=== PATIENT | female | born 1990 | race Caucasian/White ===

== ENCOUNTER 2019-07-23 20:20 | Emergency (ER) | payer OTHER, SELFPAY ==
[2019-07-23 20:24] VITALS: BP 137/89; PULSE 88; RESP 16; TEMP 36.7; O2SAT 99; BMI 44.9
[2019-07-23 20:40] VITALS: BP 135/86; PULSE 87; RESP 16; O2SAT 97
--- NOTE | 2019-07-23 21:24 | ED.RN ---
CALLED FELIPE TO ADVISE THE NEED FOR A DRUG TEST, SHE WILL BE IN
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
[2019-07-23 22:40] VITALS: BP 140/89; PULSE 86; RESP 17; O2SAT 96
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
[2019-07-24] VITALS: BP 138/80; PULSE 86; RESP 17; O2SAT 98
--- NOTE | 2019-07-24 00:11 | ED.DEP ---
ED Disposition - Plan for ED Patient: Instructions: LACERATION, Extrem (Suture, Staple or Tape), Chest Wall Contusion Prescriptions: Cephalexin [Keflex] 500 mg PO Q12 #14 capsule Hydrocodone Bitart/Apap 5-325 [[place] 5MG-325MG] 1 tablet PO Q6H PRN PRN 3 Days #10 tablet PRN Reason: Pain Referrals: Care Physician,No Primary [Primary Care Provider] - Teddy Feldman III, MD [STAFF PHYSICIAN] - [facility] [GROUP OF PHYSICIANS] -
[2019-07-24] MEDS: HYDROcodone Bitartrate/Apap 5/325 Tablet PO (00:14)
[2019-07-24] MEDS: Cephalexin 250 MG Capsule 500 MG PO (00:14)
[2019-07-24 00:45] VITALS: RESP 17
== END 2019-07-24 00:45 | disposition home or self-care (01) ==
PROVIDERS: Emergency Provider Emergency Medicine
DX: S81.011A Laceration without foreign body, right knee, initial encounter (principal); S20.211A Contusion of right front wall of thorax, initial encounter; V03.10XA Pedestrian on foot injured in collision with car, pick-up truck or van in traffic accident, initial encounter; Y93.01 Activity, walking, marching and hiking; Y92.410 Unspecified street and highway as the place of occurrence of the external cause
CPT/HCPCS: 12002; 71101; 73564; 99251; 99285; G0463

== ENCOUNTER → 2021-01-21 | Outpatient (CLI) | payer OTHER, SELFPAY ==
[2021-01-21 14:12] VITALS: BMI 44.9
[2021-01-26 20:24] LABS: HPV APTIMA, High Risk Negative (Negative)
== END | disposition home or self-care (01) ==
LOC: LABSPEC 16:40
PROVIDERS: PCP Physician Assistant; Referring Provider Nurse Practitioner Women's Health; Visit Provider Nurse Practitioner Women's Health
DX: Z12.4 Encounter for screening for malignant neoplasm of cervix (principal)
CPT/HCPCS: 87624; 88175; G0145

== ENCOUNTER → 2021-02-02 08:52 | Outpatient (CLI) | payer OTHER, SELFPAY ==
[2021-01-21 14:12] VITALS: BMI 44.9
[2021-02-02 09:55] LABS: Hemoglobin A1c 5.5 % (3.8-5.6)
[2021-02-02 11:58] LABS: Cholesterol 189 mg/dL (200); High Density Lipoprotein 42 mg/dL; Prolactin 11.7 ng/mL; Thyroid Stim Hormone (TSH) 3.32 uIU/mL (0.358-3.74); Triglycerides 65 mg/dL; Very Low Density Lipoprotein 13 mg/dL (5-40)
[2021-02-04 15:26] LABS: Testosterone Free 1.3 pg/mL (0.0-4.2)
== END ==
PROVIDERS: PCP Physician Assistant; Referring Provider Nurse Practitioner Women's Health; Visit Provider Nurse Practitioner Women's Health
DX: N97.0 Female infertility associated with anovulation (principal); N92.6 Irregular menstruation, unspecified; Z13.220 Encounter for screening for lipoid disorders; Z13.29 Encounter for screening for other suspected endocrine disorder
CPT/HCPCS: 36415; 80061; 82627; 83036; 84146; 84402; 84443; 82626

== ENCOUNTER 2021-11-02 15:09 | Outpatient (CLI) | payer BC, SELFPAY ==
[2021-11-03 10:08] LABS: Progesterone Level < 0.21 ng/mL (See Comment)
== END 2021-11-02 23:59 | disposition home or self-care (01) ==
PROVIDERS: PCP Physician Assistant; Referring Provider Obstetrics & Gynecology; Visit Provider Obstetrics & Gynecology
DX: N92.6 Irregular menstruation, unspecified (principal)
CPT/HCPCS: 36415; 84144

== ENCOUNTER → 2022-07-29 | Outpatient (CLI) | payer OTHER, SELFPAY ==
[2022-07-29 15:34] LABS: Progesterone Level 4.79 ng/mL (See Comment)
== END | disposition home or self-care (01) ==
LOC: LAB 14:27
PROVIDERS: PCP Physician Assistant; Visit Provider Nurse Practitioner Women's Health
DX: N97.0 Female infertility associated with anovulation (principal)
CPT/HCPCS: 36415; 84144

== ENCOUNTER → 2023-01-12 | Outpatient (CLI) | payer OTHER, SELFPAY ==
[2023-01-12 08:50] LABS: Glucose 75GTT - Fasting 114 mg/dL (70-99)
[2023-01-12 08:50] LABS: Glucose 75GTT - 30 minutes 198 mg/dL (100-160)
[2023-01-12 08:59] LABS: Insulin 75GTT - Fasting 26.6 mU/L (2.6-37.6)
[2023-01-12 08:59] LABS: Insulin 75GTT - 30 MIN 116.3 mU/L (Not Estab.)
[2023-01-12 09:08] LABS: T4 Free Direct 0.97 ng/dL (0.76-1.46); Thyroid Stim Hormone (TSH) 3.24 uIU/mL (0.358-3.74)
[2023-01-12 09:18] LABS: Glucose 75GTT - 60 minutes 150 mg/dL (100-160)
[2023-01-12 09:39] LABS: Insulin 75GTT - 60 min 156.7 mU/L (Not Estab)
[2023-01-12 10:40] LABS: Glucose 75GTT - 120 minutes 79 mg/dL (70-140)
[2023-01-12 10:48] LABS: Insulin 75GTT - 120 min 86.5 mU/L (Not Estab.)
== END | disposition home or self-care (01) ==
LOC: LAB 07:05
PROVIDERS: PCP Physician Assistant
DX: E03.9 Hypothyroidism, unspecified (principal)
CPT/HCPCS: 36415; 82951; 82952; 83525; 84439; 84443

== ENCOUNTER → 2023-08-15 | Outpatient (CLI) | payer OTHER, SELFPAY ==
[2023-08-15 17:05] LABS: Basophil# 0.07 X10^3/uL; Basophil% 0.7 % (0-1); Eosinophil# 0.42 X10^3/uL; Eosinophils% 4.2 % (0-5); Hematocrit 42.2 % (37-47); Hemoglobin 14.8 g/dL (12.0-15.0); Mean Corp Hgb Conc 35.1 g/dL (32-36); Mean Corpuscular Hgb 30.7 pg (27.0-32.0); Mean Corpuscular Volume 87.6 fL (81-99); Mean Platelet Vol. 10.8 fl (6.2-12.0); NRBC Flagged by Analyzer 0 % (0-5); Neutrophil # 5.97 X10^3/uL (2.7-7.7); Neutrophil % 59.7 % (47-70); Platelet Count 282 K/mm3 (150-450); RBC Distribution Width CV 12.6 % (11.6-14.6); RBC Distribution Width SD 40.5 fl (35.1-43.9); Red Blood Count 4.82 M/mm3 (4.2-5.4)
[2023-08-15 17:32] LABS: Hemoglobin A1c 5.3 % (3.8-5.6)
[2023-08-15 17:56] LABS: hCG Titer Quant., Serum 40000 mIU/mL (1-3)
[2023-08-15 18:06] LABS: HIV - WCH Non-Reactive (Nonreactive); Hepatitis B Surface Antigen Non-Reactive (Nonreactive); Hepatitis C Antibody Non-Reactive (Nonreactive); Rubella IgG Reactive (Nonreactive); Syphilis Antibodies Non-reactive
== END | disposition home or self-care (01) ==
LOC: LAB 16:41
PROVIDERS: PCP Physician Assistant; Referring Provider Advanced Practice Midwife; Visit Provider Advanced Practice Midwife
DX: Z34.90 Encounter for supervision of normal pregnancy, unspecified, unspecified trimester (principal)
CPT/HCPCS: 36415; 83036; 84702; 85025; 86703; 86762; 86780; 86803; 86850; 86900; 86901; 87340

== ENCOUNTER → 2023-08-24 | Outpatient (CLI) | payer OTHER, SELFPAY ==
[2023-08-29 21:06] LABS: Chlamydia By Nucleic Acid AMP Negative (Negative); Gonococcus By Nucleic Acid AMP Negative (Negative)
== END | disposition home or self-care (01) ==
LOC: LABSPEC 15:42
PROVIDERS: PCP Physician Assistant; Referring Provider Advanced Practice Midwife; Visit Provider Advanced Practice Midwife
DX: Z34.90 Encounter for supervision of normal pregnancy, unspecified, unspecified trimester (principal)
CPT/HCPCS: 87086; 87088; 87491; 87591

== ENCOUNTER → 2023-09-18 | Outpatient (CLI) | payer OTHER, SELFPAY ==
[2023-09-18 11:36] LABS: T4 Free Direct 0.91 ng/dL (0.76-1.46); Thyroid Stim Hormone (TSH) 1.52 uIU/mL (0.358-3.74)
[2023-09-18 11:47] LABS: NATERA MAILED SPECIMEN
== END | disposition home or self-care (01) ==
LOC: LAB 10:40
PROVIDERS: PCP Physician Assistant; Referring Provider Advanced Practice Midwife; Visit Provider Advanced Practice Midwife
DX: O20.9 Hemorrhage in early pregnancy, unspecified (principal); E03.9 Hypothyroidism, unspecified; O99.280 Endocrine, nutritional and metabolic diseases complicating pregnancy, unspecified trimester; Z3A.00 Weeks of gestation of pregnancy not specified
CPT/HCPCS: 36415; 84439; 84443

== ENCOUNTER → 2023-12-11 | Outpatient (CLI) | payer OTHER, SELFPAY ==
[2023-12-26 13:07] LABS: Anti-Cardiolipin Ab, IgG, Qn < 9 GPL U/mL (0-14); Anti-Cardiolipin Ab, IgM, Qn < 9 MPL U/mL (0-12); Antithrombin 3 Function 112 % (75-135); Beta-2-Glycoprotein I IgA <9 (0-25); Beta-2-Glycoprotein I IgG <9 (0-20); Beta-2-Glycoprotein I IgM <9 (0-32); Dilute Prothrombin Time (dPT) 23.5 sec (0.0-47.6); Dilute Russell Viper Venom 26.4 sec (0.0-47.0); Interpretation Comment: (.); PTT-LA 27.1 sec (0.0-43.5); Protein C Antigen 112 % (60-150); Protein C, Functional 143 % (73-180); Protein S, Free 56 % (61-136); Protein S, Funtional 34 % (63-140); Protein S, Total 49 % (60-150); Thrombin Time 15.4 sec (0.0-23.0); dPT Confirm Ratio 1.11 Ratio (0.00-1.34)
== END | disposition home or self-care (01) ==
PROVIDERS: PCP Physician Assistant; Referring Provider Obstetrics & Gynecology; Visit Provider Obstetrics & Gynecology
DX: Z36.9 Encounter for antenatal screening, unspecified (principal); N96 Recurrent pregnancy loss; Z86.718 Personal history of other venous thrombosis and embolism
CPT/HCPCS: 36415; 81241; 85300; 85302; 85303; 85305; 85306; 86146; 86147

== ENCOUNTER → 2024-01-12 | Outpatient (CLI) | payer OTHER, SELFPAY ==
[2024-01-12 08:25] LABS: Absolute Lymphocyte Count 0.76 X10^3/uL (0.83-4.51); Absolute Neutrophil Count 4.9 X10^3/uL (2.0-7.7); Basophil# 0.04 X10^3/uL; Basophil% 0.6 % (0-1); Eosinophils% 1.6 % (0-5); Hematocrit 36.6 % (37-47); Hemoglobin 12.3 g/dL (12.0-15.0); Lymphocyte # 0.76 X10^3/ul (0.83-4.51); Lymphocyte % 12.3 % (19-41); Mean Corp Hgb Conc 33.6 g/dL (32-36); Mean Corpuscular Hgb 29.6 pg (27.0-32.0); Mean Corpuscular Volume 88.2 fL (81-99); Mean Platelet Vol. 10.7 fl (6.2-12.0); Monocyte# 0.34 X10^3/uL; Monocyte% 5.5 % (0-10); NRBC Flagged by Analyzer 0 % (0-5); Neutrophil # 4.89 X10^3/uL (2.7-7.7); Neutrophil % 79.5 % (47-70); Platelet Count 170 K/mm3 (150-450); RBC Distribution Width CV 13.2 % (11.6-14.6); RBC Distribution Width SD 43.1 fl (35.1-43.9); Red Blood Count 4.15 M/mm3 (4.2-5.4); White Blood Count 6.2 K/mm3 (4.4-11.0)
[2024-01-12 09:05] LABS: Glucose Challenge Gest 1H 50g 130 mg/dL (70-140); Thyroid Stim Hormone (TSH) 1.37 uIU/mL (0.358-3.74)
[2024-01-12 09:24] LABS: HIV - WCH Non-Reactive (Nonreactive); Syphilis Antibodies Non-reactive
== END | disposition home or self-care (01) ==
LOC: LAB 07:37
PROVIDERS: PCP Physician Assistant; Referring Provider Obstetrics & Gynecology; Visit Provider Obstetrics & Gynecology
DX: O09.90 Supervision of high risk pregnancy, unspecified, unspecified trimester (principal); Z13.1 Encounter for screening for diabetes mellitus; E03.9 Hypothyroidism, unspecified; Z3A.00 Weeks of gestation of pregnancy not specified; O99.280 Endocrine, nutritional and metabolic diseases complicating pregnancy, unspecified trimester
CPT/HCPCS: 36415; 82950; 84443; 85025; 86703; 86780

== ENCOUNTER → 2024-03-06 | Outpatient (CLI) | payer OTHER, SELFPAY | END | disposition home or self-care (01) | LOC: LABSPEC 10:42 | PROVIDERS: PCP Physician Assistant; Referring Provider Advanced Practice Midwife; Visit Provider Advanced Practice Midwife | DX: O09.92 Supervision of high risk pregnancy, unspecified, second trimester (principal) | CPT/HCPCS: 87081 ==

== ENCOUNTER 2024-03-13 14:22 | Emergency (ER) | payer OTHER, SELFPAY ==
[2024-03-13 14:23] VITALS: BP 136/88; PULSE 85; RESP 18; TEMP 36.1; O2SAT 96; BMI 46.5
--- NOTE | 2024-03-13 16:48 | EDS_ITS ---
HPI History of Present Illness Chief Complaint: Headache Informant: patient and spouse/S.O. Onset/Context/Timing Onset: Days Context: Gradual Timing: Continuous Quality -Headache: Positive for Similar Prior Headaches and Tightness Current Severity: Moderate Maximum Severity: Moderate Associated Symptoms/Injury Associated Symptoms: Negative for Fever, Nausea, Vomiting, Sore Throat, Sinus Pressure, Numbness, Tingling, Preceding Aura, Visual Changes, Blurred Vision, Photophobia or Visual Loss Injury - LYON: Negative for Direct Trauma, Fall or Assault Narrative Narrative: 33-year-old female currently 30 weeks . With a history of migraine headaches. States that for the last 6 days she had gradual onset of a headache last Monday. Similar to her migraines. She is taken [id number] medication at home without relief. Went to an urgent care on Monday took a couple days off and still the headache has not improved. She denies any arm or leg weakness. She does have photophobia light. No fever. No neck pain. No falls or trauma. She is on no blood thinners. There is no family history of intracranial bleeds or aneurysms. She has had migraines for years. Prior similar symptoms: Yes Recent Illness/Hospitalization: No PFSH [facility] Medical History Cephalgia Bleeding in early Seasonal allergies History of DVT of lower extremity Anovulation HISTORY OF PLANTERS WART REMOVAL NECK AND BACK PAIN Difficulty balancing Depression with anxiety Knee pain Shoulder pain Shortness of breath Home Medications ?Medication ?Instructions ?Recorded ?Last Taken ?Type sertraline 100 mg tablet (Zoloft) 100 mg PO DAILY 02/14/22 Unknown History albuterol sulfate 90 mcg/actuation 2 puff inhalation Q6H PRN 08/15/23 Unknown History aerosol inhaler metformin 500 mg tablet 500 mg PO TID 08/15/23 Unknown History multivitamin no.47-iron fum 27 cap PO 08/15/23 Unknown History mg-folate no.1 1 mg-dha 300 mg capsule (PNV-DHA) ondansetron 4 mg disintegrating 4 mg PO Q6H #90 tabs 09/19/23 Unknown Rx tablet levothyroxine 50 mcg tablet 50 mcg PO DAILY #30 tabs 01/09/24 Unknown Rx (Synthroid) Allergy/AdvReac Type Severity Reaction Status Date / Time bacitracin (From Neosporin Allergy Intermediate Rash Verified 03/13/24 14:22 ([id number])) neomycin (From Neosporin Allergy Intermediate Rash Verified 03/13/24 14:22 ([id number])) polymyxin B (From Neosporin Allergy Intermediate Rash Verified 03/13/24 14:22 ([id number])) latex Allergy Rash Verified 03/13/24 14:22 banana AdvReac Nausea Verified 03/13/24 14:22 Family History Father Seizures Chiari malformation Lupus Sister PCOS (polycystic ovarian syndrome) Aunt PCOS (polycystic ovarian syndrome) Family history of recurrent miscarriage Mother Family history of recurrent miscarriage 2 miscarriges Surgical History History of tonsillectomy and adenoidectomy Social History adopted: No household members: spouse current occupational status: employed current occupation: [employer] pets and animals: Yes (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) pets and animals: cat(s) history of recent travel: Yes ([employer] at [place]) out of state: Yes out of country: No sexually active: Yes Smoking Status: Never smoker alcohol intake: current alcohol intake frequency: holidays/special occasions only details: not while substance use type: does not use diet: other well-balanced diet: daily or most days caffeine: Yes Type: coffee Number of servings: 1 eating out: 1-3 times/week during the past year weight has: decreased > 10 lbs what type of physical activity do you participate in: swimming frequency: 3-4 times per week song/latter-day: Yazidi seatbelt use: always do you feel safe at home: Yes additional social history: - [employer] ROS ROS ED ROS Narrative Headache. Review of Systems ROS Unobtainable: Denies due to encephalopathy Constitutional Constitutional ED: Denies chills or fever(s) Eyes Eyes: Denies blurry vision, change in vision or diplopia ENT ENT ED: Denies ear pain or rhinorrhea Cardiovascular Cardiovascular: Denies chest pain or palpitations Respiratory/Chest Respiratory/Chest: Denies cough or dyspnea Gastrointestinal Gastrointestinal: Denies abdominal pain, constipation or diarrhea Genitourinary Genitourinary ED: Denies dysuria or hematuria Musculoskeletal Musculoskeletal: Denies arthralgias or back pain Integumentary Denies abscess Neurologic Neurologic: Reports headache(s); Denies paresthesias or weakness Psychiatric Psychiatric: Denies anxiety or depression Endocrine Endocrinology: Denies polydipsia, polyphagia or polyuria Hematologic/Lymphatic Hematologic/Lymphatic: Denies easy bleeding, easy bruising or lymphadenopathy Allergic/Immunologic Allergic/Immunologic ED: Denies mouth swelling, tongue swelling or urticaria EXAM Physical Exam Narrative Exam Narrative: 33-year-old female sitting upright in a darkened room. Accompanied by her significant other. Vital signs are stable afebrile. Initial blood pressure 136/88. H EENT exam unremarkable. Pupils round reactive light. His motions are intact. No facial droop. No trauma. Neck nontender. No meningismus. Able to touch chin to chest. Lungs clear to auscultation. Heart regular rhythm rate about 85 no murmur. Abdomen soft nondistended. Gravid nontender uterus. No peritoneal signs. Moving all 4 extremities. 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 Dorsi plantarflexion intact. No edema. Neurologically she is awake and alert. NIH is 0. Fingertip to nose [id number] within normal limits. Bilateral equal symmetrical field pipelines supervisor strength in dorsi and plantarflexion. Normal speech. Const Vital Signs: 03/13/24 14:23 03/13/24 17:38 Temperature 96.9 F L Temperature Source Temporal Pulse Rate 85 87 Respiratory Rate 18 16 Blood Pressure 136/88 H 113/61 Blood Pressure Mean 104 78 Pulse Ox 96 98 Oxygen Delivery Method Room Air Room Air Positive well nourished and well developed; Negative for cachectic, contractures or unkempt General Appearance ED: well developed and NAD; Negative for unkempt, cachectic, contractures, cyanotic, diaphoretic or pallor Nutritional Appearance: Negative for cachectic HEENT Reports normocephalic and moist mucous membranes atraumatic; Negative for trauma, tenderness, temporal artery tenderness or vesicular rash Face and Sinus: Negative for sinus tenderness Eyes PERRL and EOMs intact bilaterally General Eye ED: Negative for pale conjunctiva or scleral icterus Neck no lymphadenopathy, supple, no meningeal signs and no JVD General: Negative for tenderness Resp normal respiratory effort and clear to auscultation bilaterally Effort and Inspection: Negative for retractions Auscultation: Negative for rales, rhonchi, wheezes or diminished lung sounds Cardio regular rate, regular rhythm, S1 normal heart sound, S2 normal heart sound and no murmurs Rate: Negative for bradycardia or tachycardic Rhythm: Negative for abnormal rhythm GI non-tender and non-distended Auscultation: normoactive bowel sounds Palpation: soft; Negative for firm or tender Back/Spine no CVA tenderness General Back: Negative for CVA tenderness or tenderness Cervical Spine: Negative for cervical spine tenderness Thoracic Spine / Upper Back: Negative for thoracic spinal tenderness Lumbar Spine / Lower Back: Negative for lumbar spinal tenderness Extremity normal to inspection, full ROM and normal capillary refill General Extremety ED: Negative for edema or tenderness General Extremity: Negative for edema Neuro oriented x3, CN's II-XII intact bilaterally and no sensory deficits noted Sensorium / Orientation: awake, alert, oriented to person, oriented to place and oriented to time; Negative for orientation impaired or lethargic Coordination / Balance: [id number] test normal and [id number] test normal Speech: speech normal Motor Exam: strength 5/5 throughout Psych mental status grossly normal Appearance: Negative for unkempt Attitude: No agitated Mood & Affect: Negative for depressed, anxious or tearful Skin General Skin Exam: elasticity normal and turgor normal; Negative for jaundice or pallor Rashes: no rashes MDM MDM MDM Narrative Medical decision making narrative: 38 weeks female with a history of migraines with what she believes is a migraine headache. For 6 days. She has a normal neurologic exam. She will be treated IV fluids, Compazine and Benadryl and Tylenol and reassess. I do not think she needs imaging at this time. Repeat exam patient is doing well at 7:52 PM. Headache resolved. Neurologic exam remains normal. Current blood pressure 113/61. She is comfortable being discharged home. Fluids and rest. Tylenol as needed. Follow-up with her OB as needed. History & Record Review Discussion w/independent historian: Patient and Family Additional record(s) reviewed:: Prior inpatient record, Prior outpatient record, Prior ED visit, Prior labs and No prior records Discharge Plan Triage Chief Complaint: Headache ED Provider: Rey Feng Dx/Rx/DC Orders Clinical Impression: Headache, History of migraine, 38 weeks gestation of Instructions: ED, Migraine (Classical) Prescriptions: No Action sertraline [Zoloft] 100 mg tablet 100 mg PO DAILY PNV-DHA 27 mg iron-1 mg -300 mg capsule PO metformin 500 mg tablet 500 mg PO TID albuterol sulfate 90 mcg/actuation HFA aerosol inhaler 2 puff inhalation Q6H PRN ondansetron 4 mg tablet,disintegrating 4 mg PO Q6H Qty: 90 3RF levothyroxine [Synthroid] 50 mcg tablet 50 mcg PO DAILY Qty: 30 0RF Primary Care Provider: Bushra Collins Referrals: Carey Marshall MD [Med Staff - Active Staff] - As Needed Bushra Collins PA [Primary Care Provider] - As Needed Activity Restrictions/Additional Instructions: Plenty of fluids and rest. Tylenol as needed. Follow-up with your OB. Return if worse. Print Language: Pakistani Disposition Disposition: Home, Self Care
[2024-03-13] MEDS: 0.9% Normal Saline (1000mL) 1,000 ML 999 ML IV (17:00)
[2024-03-13] MEDS: proCHLORPERazine 10 MG/2 ML Vial IV (17:01)
[2024-03-13] MEDS: DiphenhydrAMINE 50 MG/ML Syringe IV (17:01)
[2024-03-13] MEDS: Acetaminophen 500 MG Tablet 1000 MG PO (17:02)
[2024-03-13 17:38] VITALS: BP 113/61; PULSE 87; RESP 16; O2SAT 98
[2024-03-13 20:04] VITALS: BP 125/74; PULSE 72; RESP 16; TEMP 36.4; O2SAT 95
== END 2024-03-13 20:00 | disposition home or self-care (01) ==
PROVIDERS: Emergency Provider Emergency Medicine; PCP Physician Assistant; Visit Provider Emergency Medicine
DX: O99.891 Other specified diseases and conditions complicating pregnancy (principal); R51.9 Headache, unspecified; Z3A.38 38 weeks gestation of pregnancy; O99.343 Other mental disorders complicating pregnancy, third trimester; F41.8 Other specified anxiety disorders; Z79.899 Other long term (current) drug therapy
CPT/HCPCS: 96361; 96374; 96375; 99283; J7030; A4216

== ENCOUNTER → 2024-03-14 | Outpatient (CLI) | payer OTHER, SELFPAY ==
[2024-03-14 09:06] LABS: Absolute Lymphocyte Count 1.97 X10^3/uL (0.83-4.51); Absolute Neutrophil Count 5.1 X10^3/uL (2.0-7.7); Basophil# 0.04 X10^3/uL; Basophil% 0.5 % (0-1); Eosinophil# 0.08 X10^3/uL; Hematocrit 38.2 % (37-47); Hemoglobin 13.4 g/dL (12.0-15.0); Lymphocyte # 1.97 X10^3/ul (0.83-4.51); Lymphocyte % 25.1 % (19-41); Mean Corp Hgb Conc 35.1 g/dL (32-36); Mean Corpuscular Hgb 29.1 pg (27.0-32.0); Mean Platelet Vol. 11.7 fl (6.2-12.0); Monocyte% 7.6 % (0-10); NRBC Flagged by Analyzer 0 % (0-5); Neutrophil # 5.13 X10^3/uL (2.7-7.7); Neutrophil % 65.4 % (47-70); Platelet Count 188 K/mm3 (150-450); RBC Distribution Width CV 13.4 % (11.6-14.6); White Blood Count 7.9 K/mm3 (4.4-11.0)
[2024-03-14 09:22] LABS: ALB/GLOB Ratio 0.7 RATIO (0.9-2.4); AST(SGOT) 10 U/L (15-37); Alanine Aminotransfer ALT/SGPT 15 U/L (13-56); Albumin, Serum 2.7 g/dL (3.2-5.0); Alkaline Phosphatase 138 U/L (45-117); Anion Gap 7 (5-15); BUN 14 mg/dL (7-18); BUN/Creat Ratio 19.9 RATIO (10-20); Calcium,Total 9.5 mg/dL (8.5-10.1); Chloride 110 mmol/L (98-107); EST Glomerular Filtration Rate 101 mL/min (>60); Est Glom Filt Rate - Afr Amer 122 mL/min (>60); Globulin 3.7 g/dL (2.2-4.2); Glucose 85 mg/dL (74-106); Protein, Total 6.4 g/dL (6.4-8.2); Sodium Level 137 mmol/L (136-145)
[2024-03-14 10:26] LABS: Protein, Urine (Random) 22.7 mg/dL (<11.9); Protein:Creat Ratio 246 mg/g CRE (0-200)
== END | disposition home or self-care (01) ==
PROVIDERS: PCP Physician Assistant; Referring Provider Advanced Practice Midwife; Visit Provider Advanced Practice Midwife
DX: R51.9 Headache, unspecified (principal)
CPT/HCPCS: 36415; 80053; 82570; 84156; 85025

== ENCOUNTER 2024-03-20 10:55 | Inpatient (IN) | payer OTHER, SELFPAY ==
[2024-03-20] VITALS (51 sets, daily range): BP systolic 114–172; BP diastolic 56–87; PULSE 74–113; RESP 16–18; TEMP 35.9–37.1; O2SAT 95–100; BMI 46.3
[2024-03-20] MEDS: Lactated Ringers 1,000 ML 999 ML IV (11:05)
[2024-03-20 11:40] LABS: Absolute Lymphocyte Count 1.05 X10^3/uL (0.83-4.51); Absolute Neutrophil Count 8.6 X10^3/uL (2.0-7.7); Basophil# 0.02 X10^3/uL; Basophil% 0.2 % (0-1); Hematocrit 38.4 % (37-47); Hemoglobin 13.2 g/dL (12.0-15.0); Lymphocyte # 1.05 X10^3/ul (0.83-4.51); Lymphocyte % 10.4 % (19-41); Mean Corp Hgb Conc 34.4 g/dL (32-36); Mean Corpuscular Hgb 28.9 pg (27.0-32.0); Mean Platelet Vol. 12.1 fl (6.2-12.0); NRBC Flagged by Analyzer 0 % (0-5); Neutrophil # 8.57 X10^3/uL (2.7-7.7); Neutrophil % 84.9 % (47-70); Platelet Count 173 K/mm3 (150-450); RBC Distribution Width CV 13.4 % (11.6-14.6); RBC Distribution Width SD 41.1 fl (35.1-43.9); Red Blood Count 4.57 M/mm3 (4.2-5.4); White Blood Count 10.1 K/mm3 (4.4-11.0)
--- NOTE | 2024-03-20 12:03 | HP.PCM.OB_ITS ---
HPI - General General Date of Admission: 03/20/24 Date of Service: 03/20/24 HPI Narrative MILDRED MICHEL, is a 33 F 38.6 weeks who presents to unit in active labor. admission orders given Maternal Data Information DICK Calculator Estimated Delivery Date Method Current WG Current Estimate 03/28/24 LMP (Certain) 38w 6d Final DICK: 03/28/24 Final DICK Source: US >20 weeks Gestational age: 38.6 PFSH PFSH Medical History (Updated 03/20/24 @ 12:06 by Cindy Oneil CNM) Family history of hearing loss at age younger than 7 years Thyroid disorder DVT (deep venous thrombosis) Superficial varicosities Headache Cephalgia Bleeding in early Seasonal allergies History of DVT of lower extremity Anovulation HISTORY OF PLANTERS WART REMOVAL NECK AND BACK PAIN Difficulty balancing Depression with anxiety Knee pain Shoulder pain Shortness of breath Home Medications ?Medication ?Instructions ?Recorded ?Last Taken ?Type sertraline 100 mg tablet (Zoloft) 100 mg PO DAILY 02/14/22 03/19/24 20:00 History 100 mg albuterol sulfate 90 mcg/actuation 2 puff inhalation Q6H PRN asthma 08/15/23 Unknown History aerosol inhaler metformin 500 mg tablet 500 mg PO DAILY 08/15/23 03/19/24 18:00 History 500 mg multivitamin no.47-iron fum 27 1 cap PO DAILY 08/15/23 03/19/24 08:00 History mg-folate no.1 1 mg-dha 300 mg capsule (PNV-DHA) levothyroxine 50 mcg tablet 50 mcg PO DAILY #30 tabs 01/09/24 03/19/24 06:00 Rx (Synthroid) 50 mcg Allergy/AdvReac Type Severity Reaction Status Date / Time bacitracin (From Neosporin Allergy Intermediate Rash Verified 03/20/24 10:48 ([id number])) neomycin (From Neosporin Allergy Intermediate Rash Verified 03/20/24 10:48 ([id number])) polymyxin B (From Neosporin Allergy Intermediate Rash Verified 03/20/24 10:48 ([id number])) latex Allergy Rash Verified 03/20/24 10:48 banana AdvReac Nausea Verified 03/20/24 10:48 Family History Father Seizures Chiari malformation Lupus Sister PCOS (polycystic ovarian syndrome) Aunt PCOS (polycystic ovarian syndrome) Family history of recurrent miscarriage Mother Family history of recurrent miscarriage 2 miscarriges Surgical History (Updated 03/20/24 @ 11:45 by Natalia Rapp) History of surgery History of tonsillectomy and adenoidectomy Social History adopted: No household members: spouse current occupational status: employed current occupation: [employer] pets and animals: Yes (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) pets and animals: cat(s) history of recent travel: Yes ([facility] at [place]) out of state: Yes out of country: No sexually active: Yes Smoking Status: Never smoker alcohol intake: current alcohol intake frequency: holidays/special occasions only details: not while substance use type: does not use diet: other well-balanced diet: daily or most days caffeine: Yes Type: coffee Number of servings: 1 eating out: 1-3 times/week during the past year weight has: decreased > 10 lbs what type of physical activity do you participate in: swimming frequency: 3-4 times per week song/confucianist: Anglican seatbelt use: always do you feel safe at home: Yes additional social history: - [employer] History 1 Elective abortions Hx Para 0 Spontaneous abortions Hx # Term Pregnancies Ectopic pregnancies Hx # Pregnancies Multiple births # of living children Visit Details Expected Delivery Route/Plan Labor Preferences- CB/BF classes: yes labor support person: Manjinder labor intervention preferences: [] pain management options preferred: epidural cut cord/dad catch: maybe : yes PP control planned: discussed discussed possible routes of delivery and associated risks: [] special requests: [] Plans Covid status: [] Flu vaccine: declined Tdap vaccine: [ Rhogam: NA LARC form signed: yes Problem list reviewed and updated with the most current plan of care details and appropriate orders placed. Relevant counseling for the gestational age provided. Continue routine care and follow up unless otherwise noted in visit notes/problem list details OB Flowsheet Initial Weight: 241 lb Date -?-?-?-?-?-?-?-?-?-?-?-?- EGA Weight BP Urine Prot -?-?-?-?-?-?-?-?-?-?-?-?- Glucose FHR FuHt Pres Dilation -?-?-?-?-?-?-?-?-?-?-?-?- Effaced St Visit Note 08/24/23 -?-?-?-?-?-?-?-?-?-?-?-?- 9w 0d 241 lb 6 oz (+6 oz) 118/69 -?-?-?-?-?-?-?-?-?-?-?-?- 180 -?-?-?-?-?-?-?--?-?-?-?-?- KW- RGI transfer . spontaneous with help of Clomid. CRL cons with dates and RGI US. NIPT kit given 09/19/23 -?-?-?-?-?-?-?-?-?-?-?-?- 12w 5d 235 lb 4 oz (-5 lb 12 oz) 114/75 114/75 Negative -?-?-?-?-?-?-?-?-?-?-?-?- Negative -?-?-?-?-?-?-?-?-?-?-?-?- kw-no vb/crampin g. having increased N/V. zofran ordered. Handheld US used for FH and movement visualization. Formal US ordered. 10/16/23 -?-?-?-?-?-?-?-?-?-?-?-?- 16w 4d 240 lb 2 oz (-14 oz) 124/72 Negative -?-?-?-?-?-?-?-?-?-?-?-?- Negative 160 -?-?-?-?-?-?-?-?-?-?-?-?- MH-No VB or cram ping. Nausea improved. Now has carpel tunnel right wrist, wearing brace. Denies other concerns 11/16/23 -?-?-?-?-?-?-?-?-?-?-?-?- 21w 0d 244 lb (+3 lb) 116/75 Negative -?-?-?-?-?-?-?-?-?-?-?-?- Negative 150 -?-?-?-?-?-?-?-?-?-?-?-?- SM- no vb of goo d fm no regualr ctx 12/11/23 -?-?-?-?-?-?-?-?-?-?-?-?- 24w 4d 245 lb 4 oz (+4 lb 4 oz) 120/78 Negative -?-?-?-?-?-?-?-?-?-?-?-?- Negative 149 -?-?-?-?-?-?-?-?-?-?-?-?- MH-No VB, LOF. G ood FM. Will cont to see MFM due to w/1 multicystic kidney. Did APL labs today. Larc. 01/09/24 -?-?-?-?-?-?-?-?-?-?-?-?- 28w 5d 248 lb (+7 lb) 104/66 Negative -?-?-?-?-?-?-?-?-?-?-?-?- Negative 145 -?-?-?-?-?-?-?-?-?-?-?-?- JV- plan gct and tdap next visit. labs reviewed. tsh also added on labs. 01/23/24 -?-?-?-?-?-?-?-?-?-?-?-?- 30w 5d 246 lb 6 oz (+5 lb 6 oz) 114/75 -?-?-?-?-?-?-?-?-?-?-?-?- 160 31 -?-?-?-?-?-?-?-?-?-?-?-?- SM- no vb lof go od fm no regular ctx 02/08/24 -?-?-?-?-?-?-?-?-?-?-?-?- 33w 0d 248 lb 4 oz (+7 lb 4 oz) 108/74 Negative -?-?-?-?-?-?-?-?-?-?-?-?- Negative 154 41 -?-?-?-?-?-?-?-?-?-?-?-?- JV- seeing mfm f or growth scans. needs to start NSTs weekly at 34 weeks for obesity. 02/13/24 -?-?-?-?-?-?-?-?-?-?-?-?- 33w 5d 251 lb 8 oz (+10 lb 8 oz) 108/73 Negative -?-?-?-?-?-?-?-?-?-?-?-?- Negative 135 -?-?-?-?-?-?-?-?-?-?-?-?- SM- NST obesity and h/o dvt 02/22/24 -?-?-?-?-?-?-?-?-?-?-?-?- 35w 0d 250 lb (+9 lb) 105/71 105/71 Negative -?-?-?-?-?-?-?-?-?-?-?-?- Negative 140 -?-?-?-?-?-?-?-?-?-?-?-?- JV- nst reactive . discussed gbs for next week and IOL at 39 weeks. JV- nst reactive. discussed gbs for next week and IOL at 39 -40 weeks. 02/29/24 -?-?-?-?-?-?-?-?-?-?-?-?- 36w 0d 248 lb (+7 lb) 113/74 Negative -?-?-?-?-?-?-?-?-?-?-?-?- Negative 140 -?-?-?-?-?-?-?-?-?-?-?-?- MH-NST only reac tive 03/06/24 -?-?-?-?-?-?-?-?-?-?-?-?- 36w 6d 254 lb (+13 lb) 112/76 Negative -?-?-?-?-?-?-?-?-?-?-?-?- Negative 135 1 -?-?-?-?-?-?-?-?-?-?-?-?- 60 -3 KW- no vb/ lof/reg ctx. good fm. GBS today. IOL set up 03/2103/14/24 -?-?-?-?-?-?-?-?-?-?-?-?- 38w 0d 253 lb 4 oz (+12 lb 4 oz) 115/76 Negative -?-?-?-?-?-?-?-?-?-?-?-?- Negative 140 2 -?-?-?-?-?-?-?-?-?-?-?-?- 80 -2 KW- no vb/ lof/ctx. food fm. KW- no vb/lof/ctx. food fm. has had headache over the last week. was in ER last night but no labs done. BPP this am 04/11. normal bp. labs done today. denies blurred vision and RUQ pain. 03/19/24 -?-?-?-?-?-?-?-?-?-?-?-?- 38w 5d 252 lb (+11 lb) 122/85 Negative -?-?-?-?-?-?-?-?-?-?-?-?- Negative 140 3 -?-?-?-?-?-?-?-?-?-?-?-?- 80 -2 KW- no vb/ lof/reg ctx. good fm. Her Dad suddenly on from insect sting/GM seizure and has tomorrow. having irregular ctx. Is having a boy and naming him Miguel after her dad. IOL on -requesting to keep. told to let us know if she would like to push out NST FHR Rate Baby A Baseline: 140 Variability:: Moderate Accelerations:: 15 x 15 Decelerations:: None NST Reactive:: Yes FHR Category:: Category I Uterine Activity:: 3-4 minutes ROS Constitutional Constitutional: Denies change in weight, fatigue, fever(s), headache(s), poor appetite or weakness Eyes Eyes: Denies blurry vision, change in vision, floaters, seeing flashes or spots in vision ENT HEENT: Denies dizziness, headache(s), loss taste/smell or sore throat Cardiovascular Cardiovascular: Denies chest pain, dizziness, dyspnea, irregular heart rhythm, lightheadedness, palpitations or rapid heart rate Respiratory/Chest Respiratory/Chest: Denies change in mental status, chest tightness, cough, dyspnea or breast pain Gastrointestinal Gastrointestinal: Denies anorexia, chewing difficulty, constipation, diarrhea or weight changes Genitourinary Genitourinary: Denies difficulty urinating, dysuria, flank pain, genital pain, urinary frequency or urinary urgency Musculoskeletal Musculoskeletal: Denies back pain, difficulty walking, extremity pain, joint pain, muscle cramps or muscle weakness Integumentary Integumentary: Denies lesions or unusual bruising Neurologic Neurologic: Denies abnormal movements, abnormal speech, dizziness, numbness, seizure-like activity, syncope or weakness Psychiatric Psychiatric: Denies behavioral changes, change in appetite, confusion, depression, homicidal ideation, suicidal ideation or suicidal thoughts Endocrine Endocrinology: Denies excessive sweating, polydipsia or polyuria Hematologic/Lymphatic Hematologic/Lymphatic: Denies anemia Allergic/Immunologic Allergic/Immunologic: Denies itchy eyes, lip swelling, throat swelling, tongue swelling or wheezing Vital Signs Vital Signs Vital Signs: 03/20/24 10:23 03/20/24 10:23 03/20/24 10:23 Temperature Temperature Source Pulse Rate 74 77 Respiratory Rate Blood Pressure 122/72 H BP Systolic 122 BP Diastolic 72 Pulse Ox 03/20/24 10:23 03/20/24 10:24 03/20/24 10:24 Temperature Temperature Source Temporal Pulse Rate Respiratory Rate Blood Pressure 122/72 H BP Systolic 122 BP Diastolic 72 Pulse Ox 95 03/20/24 10:24 03/20/24 10:24 03/20/24 10:24 Temperature Temperature Source Pulse Rate 77 Respiratory Rate 18 Blood Pressure BP Systolic BP Diastolic Pulse Ox 96 03/20/24 10:24 Temperature 98.0 F Temperature Source Pulse Rate Respiratory Rate Blood Pressure BP Systolic BP Diastolic Pulse Ox Weight Weight: 253 lb 2 oz Body Mass Index (BMI) 46.3 Physical Exam Const alert, oriented x3 and no apparent distress General Appearance: cooperative Orientation / Consciousness: awake HEENT normocephalic Neck full ROM Lymph Lymphatic: no lymphadenopathy noted Chest inspection of chest normal Resp normal respiratory effort and normal air movement Effort and Inspection: able to speak in complete sentences and symmetric chest movement GI soft to palpation and non-tender Inspection: gravid Palpation: soft; Negative for tender external exam normal Manual OB Exam: dilated 5, effaced 90 and station 0 Back/Spine normal to inspection Extremity normal to inspection and full ROM Skin no rashes or lesions noted Psych mental status grossly normal Appearance: grossly normal Speech: normal speech Labs Labs Labs: Blood Type B POSITIVE Antibody Screen NEGATIVE Hct 38.4 % (37-47) Hgb 13.2 g/dL (12.0-15.0) Syphilis Total Ab Non-reactive Rubella IgG Antibody Reactive (Nonreactive) Hep Bs Antigen Non-Reactive (Nonreactive) Hepatitis C Antibody Non-Reactive (Nonreactive) Chlamydia DNA (EZEKIEL) Negative (Negative) N.gonorrhoeae DNA (EZEKIEL) Negative (Negative) HIV 1&2 Antibody Non-Reactive (Nonreactive) Glucose 1 Hr 50 gm 130 mg/dL (70-140) Miscellaneous Test Assessment & Plan (1) History of DVT of lower extremity: COMMENT: related to accident recovery/decreased mobility, ordered thrombophilia panel- negative. discussed possible IOL 39-40. plan post prophylactic anticoagulation for 6 weeks (2) Depression with anxiety: COMMENT: zoloft-stable (3) Cephalgia: (4) PCOS (polycystic ovarian syndrome): COMMENT: on metformin (5) : QUALIFIERS: Weeks of gestation: 38 weeks Qualified Code(s): Z3A.38 - 38 weeks gestation of COMMENT: GBS neg, NIPT- low risk anatomy reviewed. afp screen negative. carrier testing done with R[facility] *delivery appropriate here, multicystic kidney, plan follow up after (6) Supervision of high-risk : QUALIFIERS: Trimester: second trimester Qualified Code(s): O09.92 - Supervision of high risk , unspecified, second trimester COMMENT: PRR , DICK 03/28/24, surprise Manjinder, father passed- 03/20. (7) Varicose vein of leg: QUALIFIERS: Varicose vein complication: unspecified Laterality: unspecified laterality Qualified Code(s): I83.90 - Asymptomatic varicose veins of unspecified lower extremity COMMENT: Right leg above knee (8) Hypothyroidism: QUALIFIERS: Hypothyroidism type: unspecified Qualified Code(s): E03.9 - Hypothyroidism, unspecified COMMENT: thyroid labs q trimester (9) Asthma: (10) Infertility: COMMENT: RGI pt/clomid (11) Obesity affecting : QUALIFIERS: Trimester: second trimester Obesity type affecting : unspecified obesity Qualified Code(s): O99.212 - Obesity complicating , second trimester COMMENT: BMI 42-A1C nl with NOB labs NST weekly at 34 weeks (12) Multicystic dysplastic kidney, , affecting care of mother, antepartum: QUALIFIERS: Fetus number: single or unspecified fetus Qualified Code(s): O35.EXX0 - Maternal care for other (suspected) abnormality and damage, genitourinary anomalies, not applicable or unspecified COMMENT: left kidney only. growth us q 4 weeks-follow up at [facility] (13) Headache: (14) History of migraine: (15) Active labor: PLAN: Patient presents IAL, plan expectant management for , pitocin/AROM PRN if needed. Pain management: plans epidural. GBS negative. Management of any complications: none I have reviewed the [facility] and made any clinically relevant updates. Dr Nguyễn aware of and agrees with assessment, plan, and admission for labor Charges/Coding Multi Select Codes Urinary/Genital Urinary/Genital CPT Codes: No Charge
[2024-03-20] MEDS: Lactated Ringers 1,000 ML 200 ML IV ×3 (12:10→22:49)
[2024-03-20 12:34] LABS: Syphilis Antibodies Non-reactive
[2024-03-20] MEDS: fentaNYL-bupivacaine (epidural) 100 ML BAG EPIDURAL ×2 (13:49→18:16)
--- NOTE | 2024-03-20 15:49 | PCM.PN.BLA ---
Progress Note comfortable with epidural current tracing: FHT: 140 Moderate variability reactive no decelerations category I tracing [place]: irregular Contractions Membranes:AROM clear SVE:7/90/0 A/P: Continue with position changes Start/Titrate pitocin per protocol Epidural per anesthesia GBS neg Anticipate Dr Nguyễn aware of above assessment and agrees with plan of care Assessment & Plan Assessment/Plan (1) Active labor: (2) History of migraine: (3) Headache: (4) Multicystic dysplastic kidney, , affecting care of mother, antepartum: QUALIFIERS: Fetus number: single or unspecified fetus Qualified Code(s): O35.EXX0 - Maternal care for other (suspected) abnormality and damage, genitourinary anomalies, not applicable or unspecified (5) Obesity affecting : QUALIFIERS: Trimester: second trimester Obesity type affecting : unspecified obesity Qualified Code(s): O99.212 - Obesity complicating , second trimester (6) Infertility: (7) Asthma: (8) Hypothyroidism: QUALIFIERS: Hypothyroidism type: unspecified Qualified Code(s): E03.9 - Hypothyroidism, unspecified (9) Varicose vein of leg: QUALIFIERS: Varicose vein complication: unspecified Laterality: unspecified laterality Qualified Code(s): I83.90 - Asymptomatic varicose veins of unspecified lower extremity (10) Supervision of high-risk : QUALIFIERS: Trimester: second trimester Qualified Code(s): O09.92 - Supervision of high risk , unspecified, second trimester (11) : QUALIFIERS: Weeks of gestation: 38 weeks Qualified Code(s): Z3A.38 - 38 weeks gestation of (12) PCOS (polycystic ovarian syndrome): (13) Cephalgia: (14) Depression with anxiety: (15) History of DVT of lower extremity: Multi Select Codes Urinary/Genital Urinary/Genital CPT Codes: No Charge
--- NOTE | 2024-03-20 18:01 | PCM.PN.BLA ---
Progress Note comfortable with epidural current tracing: FHT: 140 Moderate variability reactive no decelerations category I tracing [place]: 3-5 Contractions Membranes:remains clear SVE:/0 Nursing unable to start pitocin due to staffing issues. A/P: Continue with position changes Start pitocin per protocol RADHA Epidural per anesthesia GBS neg Anticipate Dr Nguyễn aware of above assessment and agrees with plan of care Assessment & Plan Assessment/Plan (1) Active labor: (2) History of migraine: (3) Headache: (4) Multicystic dysplastic kidney, , affecting care of mother, antepartum: QUALIFIERS: Fetus number: single or unspecified fetus Qualified Code(s): O35.EXX0 - Maternal care for other (suspected) abnormality and damage, genitourinary anomalies, not applicable or unspecified (5) Obesity affecting : QUALIFIERS: Trimester: second trimester Obesity type affecting : unspecified obesity Qualified Code(s): O99.212 - Obesity complicating , second trimester (6) Infertility: (7) Asthma: (8) Hypothyroidism: QUALIFIERS: Hypothyroidism type: unspecified Qualified Code(s): E03.9 - Hypothyroidism, unspecified (9) Varicose vein of leg: QUALIFIERS: Varicose vein complication: unspecified Laterality: unspecified laterality Qualified Code(s): I83.90 - Asymptomatic varicose veins of unspecified lower extremity (10) Supervision of high-risk : QUALIFIERS: Trimester: second trimester Qualified Code(s): O09.92 - Supervision of high risk , unspecified, second trimester (11) : QUALIFIERS: Weeks of gestation: 38 weeks Qualified Code(s): Z3A.38 - 38 weeks gestation of (12) PCOS (polycystic ovarian syndrome): (13) Cephalgia: (14) Depression with anxiety: (15) History of DVT of lower extremity: Multi Select Codes Urinary/Genital Urinary/Genital CPT Codes: No Charge
[2024-03-20] MEDS: LACTATED RINGERS 500 ML 999 ML IV (19:24)
[2024-03-20] MEDS: Acetaminophen 500 MG Tablet PO (19:41)
[2024-03-20] MEDS: Oxytocin 15 Units/NS 250ml 15 UNITS/250 ML IV.SOLN 2 UNITS IV (19:59)
--- NOTE | 2024-03-20 20:01 | PCM.PN.BLA ---
Progress Note comfortable with epidural current tracing: FHT: 135 Moderate variability, minimal at times, reactive no decelerations category II tracing [place]: Contractions Membranes:remains clear SVE: reviewed tracing abnormalities since last note: phone collaboration with Dr Dominguez at this time for FHT tracing. Due to staffing has been unable to start pitocin until shift change. A/P: Continue with position changes start/Titrate pitocin per protocol Epidural per anesthesia GBS neg Anticipate Dr Nguyễn aware of above assessment and agrees with plan of care Assessment & Plan Assessment/Plan (1) Active labor: (2) History of migraine: (3) Headache: (4) Multicystic dysplastic kidney, , affecting care of mother, antepartum: QUALIFIERS: Fetus number: single or unspecified fetus Qualified Code(s): O35.EXX0 - Maternal care for other (suspected) abnormality and damage, genitourinary anomalies, not applicable or unspecified (5) Obesity affecting : QUALIFIERS: Trimester: second trimester Obesity type affecting : unspecified obesity Qualified Code(s): O99.212 - Obesity complicating , second trimester (6) Infertility: (7) Asthma: (8) Hypothyroidism: QUALIFIERS: Hypothyroidism type: unspecified Qualified Code(s): E03.9 - Hypothyroidism, unspecified (9) Varicose vein of leg: QUALIFIERS: Varicose vein complication: unspecified Laterality: unspecified laterality Qualified Code(s): I83.90 - Asymptomatic varicose veins of unspecified lower extremity (10) Supervision of high-risk : QUALIFIERS: Trimester: second trimester Qualified Code(s): O09.92 - Supervision of high risk , unspecified, second trimester (11) : QUALIFIERS: Weeks of gestation: 38 weeks Qualified Code(s): Z3A.38 - 38 weeks gestation of (12) PCOS (polycystic ovarian syndrome): (13) Cephalgia: (14) Depression with anxiety: (15) History of DVT of lower extremity: Multi Select Codes Urinary/Genital Urinary/Genital CPT Codes: 11266 Surg Trtmt missed Ab 1TM and No Charge
--- NOTE | 2024-03-20 21:20 | PN_ITS ---
Progress Note comfortable with epidural current tracing: FHT: 140 Moderate variability reactive occasional variables decelerations category I tracing [place]: 2-3 Contractions Membranes:ruptured remains clear SVE:/0 Dr Dominguez notified at this time patient is complete and possibly OP A/P: Continue with position changes Titrate pitocin per protocol Epidural per anesthesia GBS neg Anticipate Dr Nguyễn aware of above assessment and agrees with plan of care Assessment & Plan Assessment/Plan (1) Active labor: (2) History of migraine: (3) Headache: (4) Multicystic dysplastic kidney, , affecting care of mother, antepartum: QUALIFIERS: Fetus number: single or unspecified fetus Qualified Code(s): O35.EXX0 - Maternal care for other (suspected) abnormality and d amage, genitourinary anomalies, not applicable or unspecified (5) Obesity affecting : QUALIFIERS: Trimester: second trimester Obesity type affecting : unspecified obesity Qualified Code(s): O99.212 - Obesity complicating , second trimester (6) Infertility: (7) Asthma: (8) Hypothyroidism: QUALIFIERS: Hypothyroidism type: unspecified Qualified Code(s): E03.9 - Hypothyroidism, unspecified (9) Varicose vein of leg: QUALIFIERS: Varicose vein complication: unspecified Laterality: unspecified laterality Qualified Code(s): I83.90 - Asymptomatic varicose veins of unspecified lower extremity (10) Supervision of high-risk : QUALIFIERS: Trimester: second trimester Qualified Code(s): O09.92 - Supervision of high risk , unspecified, second trimester (11) : QUALIFIERS: Weeks of gestation: 38 weeks Qualified Code(s): Z3A.38 - 38 weeks gestation of (12) PCOS (polycystic ovarian syndrome): (13) Cephalgia: (14) Depression with anxiety: (15) History of DVT of lower extremity: Multi Select Codes Urinary/Genital Urinary/Genital CPT Codes: No Charge
[2024-03-20] MEDS: Amnioinfusion- 0.9% NS 1,000 ML IV.SOLN. 1000 ML INTRA-UTER (21:40)
[2024-03-20] MEDS: Mag /Aluminum/Simeth WCH UDC 30 ML ORAL.SUSP PO (22:17)
[2024-03-21] VITALS (14 sets, daily range): BP systolic 111–130; BP diastolic 54–77; PULSE 84–102; RESP 13–22; TEMP 36.1–36.8; O2SAT 95–100
--- NOTE | 2024-03-21 00:10 | PN_ITS ---
Progress Note comfortable with epidural current tracing: FHT: 140 Moderate variability reactive variable decelerations with pushing category II tracing, prolonged deceleration noted with start of pitocin. [place]: 3-5 Contractions Membranes:remains clear SVE:complete reviewed tracing abnormalities since last note: collaboration with Dr Dominguez at this time for Cat II FHT tracing and prolonged decleration with starting pitocin Has been pushing for 3 hours with no decent , prepare for P C/S. A/P: Continue with position changes Titrate pitocin per protocol Epidural per anesthesia GBS neg Anticipate P C/S Dr Nguyễn aware of above assessment and agrees with plan of care Assessment & Plan Assessment/Plan (1) Active labor: (2) Multicystic dysplastic kidney, , affecting care of mother, antepartum: QUALIFIERS: Fetus number: single or unspecified fetus Qualified Code(s): O35.EXX0 - Maternal care for other (suspected) abnormality and damage, genitourinary anomalies, not applicable or unspecified (3) Obesity affecting : QUALIFIERS: Trimester: second trimester Obesity type affecting : unspecified obesity Qualified Code(s): O99.212 - Obesity complicating , second trimester (4) Infertility: (5) Hypothyroidism: QUALIFIERS: Hypothyroidism type: unspecified Qualified Code(s): E03.9 - Hypothyroidism, unspecified (6) Asthma: (7) Varicose vein of leg: QUALIFIERS: Varicose vein complication: unspecified Laterality: unspecified laterality Qualified Code(s): I83.90 - Asymptomatic varicose veins of unspecified lower extremity (8) Supervision of high-risk : QUALIFIERS: Trimester: second trimester Qualified Code(s): O09.92 - Supervision of high risk , unspecified, second trimester (9) : QUALIFIERS: Weeks of gestation: 38 weeks Qualified Code(s): Z3A.38 - 38 weeks gestation of (10) PCOS (polycystic ovarian syndrome): (11) Cephalgia: (12) Depression with anxiety: (13) History of DVT of lower extremity: Multi Select Codes Urinary/Genital Urinary/Genital CPT Codes: No Charge
[2024-03-21] MEDS: Sodium Citrate/Citric Acid 30 ML UDC PO (00:12)
[2024-03-21] MEDS: Cefazolin 2 GM in 0.9% Normal Saline (100mL Bag) 100 ML IV (00:42)
[2024-03-21] MEDS: Azithromycin 500 MG in Dextrose 5%-Water (250mL Bag) 250 ML 250 MG IV (01:21)
--- NOTE | 2024-03-21 01:25 | OP.PCM_ITS ---
Assessment & Plan (1) Arrested labor: (2) intolerance to labor, delivered, current hospitalization: (3) Active labor: (4) Multicystic dysplastic kidney, , affecting care of mother, antepartum: QUALIFIERS: Fetus number: single or unspecified fetus Qualified Code(s): O35.EXX0 - Maternal care for other (suspected) abnormality and damage, genitourinary anomalies, not applicable or unspecified COMMENT: left kidney only. growth us q 4 weeks-follow up at [facility] (5) Obesity affecting : QUALIFIERS: Trimester: second trimester Obesity type affecting : unspecified obesity Qualified Code(s): O99.212 - Obesity complicating , second trimester COMMENT: BMI 42-A1C nl with NOB labs NST weekly at 34 weeks (6) Infertility: COMMENT: RGI pt/clomid (7) Asthma: (8) Hypothyroidism: QUALIFIERS: Hypothyroidism type: unspecified Qualified Code(s): E03.9 - Hypothyroidism, unspecified COMMENT: thyroid labs q trimester (9) Varicose vein of leg: QUALIFIERS: Varicose vein complication: unspecified Laterality: unspecified laterality Qualified Code(s): I83.90 - Asymptomatic varicose veins of unspecified lower extremity COMMENT: Right leg above knee (10) Supervision of high-risk : QUALIFIERS: Trimester: second trimester Qualified Code(s): O09.92 - Supervision of high risk , unspecified, second trimester COMMENT: PRR , DICK 03/28/24, surprise Manjinder, father passed- 03/20. (11) : QUALIFIERS: Weeks of gestation: 38 weeks Qualified Code(s): Z3A.38 - 38 weeks gestation of COMMENT: GBS neg, NIPT- low risk anatomy reviewed. afp screen negative. carrier testing done with [facility] *delivery appropriate here, multicystic kidney, plan follow up after (12) PCOS (polycystic ovarian syndrome): COMMENT: on metformin (13) Cephalgia: (14) Depression with anxiety: COMMENT: zoloft-stable (15) History of DVT of lower extremity: COMMENT: related to accident recovery/decreased mobility, ordered thrombophilia panel- negative. discussed possible IOL 39-40. plan post prophylactic anticoagulation for 6 weeks Maternal Data Information DICK Calculator Estimated Delivery Date Method Current WG Current Estimate 03/28/24 LMP (Certain) 39w 0d Final DICK: 03/28/24 Final DICK Source: LMP Doctor Who Attended Delivery: Massiel Jerome Details Operative Information Date of Procedure: 03/21/24 Pre-Operative Diagnosis: 33 y/o @ 39 weeks 0 days, labor arrest, intolerance to labor Post-Operative Diagnosis: 33 y/o @ 39 weeks 0 days, labor arrest, intolerance to labor Classification: RADHA Procedure Type: low transverse Type of Anesthesia: Epidural Anesthesiologist: Felix Shipley Antibiotic Given: Ancef 2 grams IV x1, Ancef 3 grams IV x1 and Zithromax 500 mg/5 mL X1 Drain: Resendez to straight drain Estimated Blood Loss: 1000cc Procedure Start Time: 00:49 Procedure Stop Time: 01:33 Time of Delivery: 00:56 Findings Description of Procedure: The patient was admitted to L&D for active labor and stalled at 7 cm for 7 hours. Pitocin was given intermittently after that, however there were signs of intolerance to labor as displayed on the monitor with multiple episodes of prolonged decelerations that seemed to coincide with more frequent contractions. She reached completely dilated and pushed for over 2 hours with no decent of the station. The decision was made to proceed with a primary section Procedure: The patient was brought to the operating room and spinal anesthesia was found to be adequate. She was prepped and draped in the normal sterile fashion and was placed in a dorsal supine position with a leftward tilt. Pfannenstiel skin incision was made with a scalpel and carried through to the underlying layers. The fascia was nicked in the midline and extended laterally using Zepeda scissors. The anterior aspect of the fascia was grasped with Monalisa clamps and the underlying rectus muscles dissected off using the Metzenbaum scissors. The inferior aspect the fascia was also grasped with Monalisa clamps and the underlying rectus muscle dissected off with the Metzenbaum scissors. The rectus muscles were in the midline. Peritoneum was entered sharply. The uterus was identified and a bladder blade was inserted into the abdomen. Bladder flap was created off the uterus using Metzenbaum scissors. A transverse incision was made with a scalpel and extended laterally manually. The infant's head was grasped with the help of my assistant professor of anthropology and fundal pressure the infant was delivered through the uterine incision without difficulty. The mouth and nares were bulb suctioned. After a 30 second delay the cord was clamped and cut. The infant was handed off to the awaiting roller repairer for routine assessment. Placenta was delivered manually without difficulty. The uterus was exteriorized and cleared of all clots and debris. Incision was closed with an 0 Vicryl suture in a running locked fashion. Second layer of 1-0 monocryl suture was used in imbricating manner to create excellent closure and hemostasis. The uterus was returned to the abdomen. The gutters were cleared of all clots and debris. The peritoneum was closed in a pursestring pattern using a 3-0 Vicryl suture. This muscle was reapproximated with a 3-0 Vicryl. The fascia was closed with an 0-PDS suture. Subcutaneous tissue layer was irrigated and closed using a 3-0 vicryl suture. The skin was closed with a 4-0 Monocryl subcuticular stitch. The patient tolerated the procedure well sponge lap and needle counts were correct at each tissue closure plane and the patient is now being brought to the recovery room in stable condition baby boy name Miguel Presentation: Positive for Vertex Amniotic Fluid Description: Clear Placental Delivery Description: Manual Removal Placenta Disposition: [facility] Cord Vessel Description: 3 Vessels Cord Entanglement: Around neck x 2, tight Nuchal Cord Compression: Without compression A Gender: Male (1 minute): 7 (5 minute): 6 Delayed Cord Clamping: Yes Complications Risks of Surgery Discussed w/Patient: Anesthesia Risks, Infection, Need for Future C-Sections and Injury to surrounding structure(s) including bowel and bladder Multi Select Codes Urinary/Genital Urinary/Genital CPT Codes: 48352 Delivery [facility]
--- NOTE | 2024-03-21 01:33 | DCINST_ITS ---
Discharge Instructions Diet Discharge Diet: No restrictions Activity Discharge Activity: May Not Drive (for 2 weeks or while taking narcotic pain medications.), May Shower and May Take a Tub Bath (in 7 days.) May resume sexual activity in: 4-6 weeks Weight Bearing Status: Full weight bearing Lifting Restrictions: 20 pounds Dressing / Incision Call your doctor if your incision/area has: Continuous Slow Oozing, Sudden Increased Bleeding, Increased Pain/ Swelling, Increased Redness and Foul Smelling Discharge Call your doctor if you observe: Fever of 101 or Higher and Using more than 1 pad per hour Suture Line Care: Avoid Pulling/Pushing and Avoid Pinching/Bending Cleanse incision/area with: Soap & Water and Keep Dressing Clean & Dry Follow Up Care Please Follow Up With: Gudelia Dominguez DO When: Call [phone] to make an appointment for an incision check in 1-2 weeks. Test Results: Test results from this visit will be discussed in further detail at your follow- up appointment, if applicable. Discharge Plan Admission Admit Date/Time: 03/20/24 10:55 Attending Provider: Gudelia Dominguez Primary Care Provider: Bushra Collins Discharge Orders/Prescriptions Prescriptions: No Action sertraline [Zoloft] 100 mg tablet 100 mg PO DAILY PNV-DHA 27 mg iron-1 mg -300 mg capsule 1 cap PO DAILY metformin 500 mg tablet 500 mg PO DAILY albuterol sulfate 90 mcg/actuation HFA aerosol inhaler 2 puff inhalation Q6H PRN (Reason: asthma) levothyroxine [Synthroid] 50 mcg tablet 50 mcg PO DAILY Qty: 30 0RF Referrals / Follow Up: Bushra Collins PA [Primary Care Provider] -
[2024-03-21] MEDS: Oxytocin 15 Units/NS 250ml 15 UNITS/250 ML IV.SOLN 83 UNITS IV (01:56)
[2024-03-21] MEDS: Acetaminophen 500 MG Tablet 1000 MG PO ×4 (02:33→20:12)
[2024-03-21] MEDS: 0.9% Saline Lock 10 ML Syringe IV ×3 (02:34→20:13)
[2024-03-21] MEDS: Ketorolac 30 MG/ML Syringe IV ×4 (02:34→20:12)
[2024-03-21] MEDS: Lactated Ringers 1,000 ML 100 ML IV (05:00)
[2024-03-21] MEDS: Levothyroxine 50 MCG Tablet PO (06:05)
[2024-03-21] MEDS: metFORMIN HCl 500 MG Tablet PO (08:12)
[2024-03-21] MEDS: Senna/Docusate Sodium 1 Tablet PO (10:31)
[2024-03-21] MEDS: Prenatal Vits Tablet 1 TABLET PO (10:32)
[2024-03-21] MEDS: Enoxaparin 40 MG/0.4 ML Syringe SC (13:46)
--- NOTE | 2024-03-21 14:51 | CASEMGMT ---
Social Work Assessment Labor and Delivery Unit Patient Address:[address] [place] [id number] Phone number: [phone] Date of Referral: 03/20/24 Time of Referral:? 1148 Referred By: Cindy Oneil Date of Intervention: ??03/21/24 Time of Intervention:? 8620 Reason for Referral:? FOB uses [facility] Sw completed chart review and acknowledges social work consult due to paternal substance use. Sw presented to bedside and introduced self to mother of baby (MOB- Alexandra) and father of baby (FOB- Manjinder). Sw explained reason for sw involvement and completed psychosocial assessment. History obtained from: medical records, MOB and FOB Household composition: Currently residing in the family home is MOB and FOB. baby to add to residence when ready for discharge. Patient's parent/guardian status:? ?Parents report that they have been together for 7 years after meeting online. No issues or concerns reported of domestic violence or intimate partner violence. Medical History: ?MURPHY is 33 year old female who is 1, para 0- now 1 following labor and delivery of . MURPHY received routine care during with Joffre. MURPHY presented to hospital in active labor and required emergency of baby on 03/21/24. baby boy, named Miguel Monroe, was born weighing 7lb 16oz with apgars of 7 and 6 at one and five minutes of life, respectfully. MURPHY states that baby had some respiratory distress and did require some oxygen after delivery. MURPHY states that she is working on breast feeding and feels as though it is going well. Baby will be followed by Dr. Jacobo for pediatrics. Educational Status:MURPHY states that she obtained her GED and FOB graduated from high school. Financial Status: Both parents are gainfully employed outside of the home. MOB works for the [employer] and is able to take 12 weeks off of work. FOB works for [employer]. Infant Supplies:?? Parents report to obtaining all necessary baby supplies for baby, including: car seat, safe sleep space, clothes, diapers and wipes Childcare/Caregiver(s):? MOB states that she will be the primary caregiver to baby along with FOB when he is not working. Parents report to having a lot of family and friends who are able to assist with childcare when necessary. Transportation:?? No barriers. Programs/Agencies Involved: ?MURPHY has insurance provided through [employer] ([facility]). ?? Children Services/Legal Issues:??? No history of children services involvement. No issues or concerns warranting referral to be made at this time. Behavioral Health Issues: ??Mental Health History:??FOShashank denies mental health history. MURPHY states that she has been diagnosed with anxiety and depression and is currently prescribed zoloft through her primary care doctor. MURPHY states that a week ago today () her father unexpectedly following a bee sting which resulted in seizure activity and heart issues. MURPHY states that her father has a history of seizures, and she and her family knew that if and when he had another one that would kill him. MURPHY states that she started to go into labor and Monday, and Monday was her father's . She came to the hospital as soon as she could following her father's on Monday and the baby was born on . MURPHY states that the chehalis of life has gone full chehalis and her baby was born a week after her father passed. MURPHY was able to talk about this loss in a positive way, did not become tearful. MURPHY reports to having a mental health counselor at [facility] [facility] and a strong [employer]. Substance Use History: MOB denies substance use prior to and during . FOB states that he does have a substance use history. FOB states that in 2017/2017 he started used Spice. FOB states that he was curious and wanted to see what it was about. FOB states that now he regrets ever using the drug. FOB states that he did not seek sobriety with a treatment facility, but instead stopped using cold turkey. FOB states that he will vape from time to time, but denies other illicit substance use for the last 3 years. ?? Family History:?Parents deny family history of drug use and significant mental health diagnoses. Sw educated parents to use healthy and appropriate coping skills during this period instead of seeking comfort from drugs or alcohol. FOB states that he does not have any intentions of using any type of substances that would impact his ability to be a good parent to his . ? Drug Screens: ??No urine screens observed in chart review. Family/Social Stressors:? The most recent loss of maternal grandpa is the biggest stressor that parents are going through. Parents seem to be in good spirits and have a lot of natural supports in place to help them. Support Systems: Parents report that maternal grandma and paternal grandparents are their biggest supports. MURPHY states that she has a lot of friends who are extremely supportive. Depression/Shaken Baby/Safe Sleeping:? Sw educated parents at length regarding signs and symptoms of baby blues and mood and anxiety disorders to be on the lookout for. Sw also informed parents that dads are also at risk for experiencing mood disorders. Parents express understanding of this. MURPHY states that although the last 48 hours have brought with it a roller coaster of emotions she is doing really well and riding the adrenaline high after delivering baby. Sw talked to parents about what to expect when they come down off their adrenaline high of delivery. Parents express understanding. Sw educated parents on shaken baby prevention and ABCs of safe sleep. Parents express understanding. ASSESSMENT:?MOB and baby admitted following labor and delivery. MOB and FOB both observed to provide loving and appropriate hands on care to baby .FOB observed to be extremely supportive to MOB and involved. FOB with substance use history, who reports he has not used in several years and does not have intentions on using now that baby has been born. Parents have obtained all necessary baby supplies and have a lot of natural supports in place. MURPHY just recently lost her father unexpectedly and is taking it a day at a time. The process of grief reviewed and discussed with parents. MURPHY also connected to mental health services and supports and is prescribed pharmacological medication to assist with mental health symptoms. PLAN:? MOB and baby to be discharged when medically ready. ?No other services requested or indicated. Gee Thomas, GRAPPLER, MANUFACTURING PRODUCTION MANAGER
[2024-03-21] MEDS: Sertraline 100 MG Tablet PO (21:28)
--- NOTE | 2024-03-21 23:36 | NURSING ---
RN notes MOB tearful as she states she is tired and that will not sleep. RN educated mob on cluster feeding. Pt verbalized understanding. RN notes FOB told MOB, We should call your mom. MOB then replied and stated, We don't need her right now. We will call her if needed. RN offered emotional support and brought to nursery.
[2024-03-22] VITALS (7 sets, daily range): BP systolic 105–124; BP diastolic 57–67; PULSE 82–99; RESP 16–18; TEMP 36.3–37.3; O2SAT 97–98
[2024-03-22] MEDS: Enoxaparin 40 MG/0.4 ML Syringe SC ×2 (01:02→12:56)
[2024-03-22] MEDS: Acetaminophen 500 MG Tablet 1000 MG PO ×4 (02:37→20:27)
[2024-03-22] MEDS: Naproxen 500 MG Tablet PO ×3 (02:37→18:39)
[2024-03-22] MEDS: 0.9% Saline Lock 10 ML Syringe IV ×2 (05:52→10:12)
[2024-03-22] MEDS: Levothyroxine 50 MCG Tablet PO (05:52)
[2024-03-22 06:31] LABS: Hemoglobin 8.7 g/dL (12.0-15.0); Mean Corp Hgb Conc 33.5 g/dL (32-36); Mean Corpuscular Hgb 29.2 pg (27.0-32.0); Mean Corpuscular Volume 87.2 fL (81-99); Platelet Count 140 K/mm3 (150-450); RBC Distribution Width CV 14.2 % (11.6-14.6); RBC Distribution Width SD 43.5 fl (35.1-43.9); Red Blood Count 2.98 M/mm3 (4.2-5.4); White Blood Count 7.5 K/mm3 (4.4-11.0)
[2024-03-22] MEDS: metFORMIN HCl 500 MG Tablet PO ×2 (08:27→10:13)
--- NOTE | 2024-03-22 08:49 | PN.OBGYN_ITS ---
Subjective Subjective Patient is laying in bed comfortably without complaints. She states that she slept on an off during the night. Lochia is mild and pain is minimal. I explained to her that her hg dropped to 8.9 and she agrees to an iron infusion today. She does not feel ready to go home today. Objective Data Objective Data Vital Signs: Vital Signs Temp Pulse Resp BP Pulse Ox O2 Del Method 97.5 F L 82 16 117/66 98 Room Air 03/22/24 03:25 03/22/24 03:25 03/22/24 03:25 03/22/24 03:25 03/22/24 03:25 03/22/24 03:25 Oxygen Delivery Method Room Air Weight: 253 lb 2 oz Body Mass Index (BMI) 46.3 Intake & Output: Intake and Output for Last 24 Hours 03/20/24 03/21/24 03/22/24 23:59 23:59 23:59 Intake Total 4000.55 / 4000.55 1916.66 / 1916.66 Output Total 950 / 950 2520 / 2520 Balance 3050.55 / 3050.55 -603.34 / -603.34 Lab / Micro Data 03/22/24 06:02 Labs: Laboratory Results - last 24 hr 03/22/24 06:02: WBC 7.5, RBC 2.98 L, Hgb 8.7 L, Hct 26.0 L, MCV 87.2, MCH 29.2, MCHC 33.5, RDW Std Deviation 43.5, RDW Coeff of Ignacio 14.2, Plt Count 140 L, MPV 12.0 ROS Constitutional Constitutional: Reports systems reviewed and no addt'l complaints, except as documented Cardiovascular Cardiovascular: Denies chest pain, dizziness, dyspnea or irregular heart rhythm Respiratory/Chest Respiratory/Chest: Denies cough, pain on inspiration or shortness of breath at rest Gastrointestinal Gastrointestinal: Denies abdominal pain, nausea or vomiting Genitourinary Genitourinary: Denies burning urination Musculoskeletal Musculoskeletal: Denies muscle cramps, muscle spasms or muscle weakness Neurologic Neurologic: Denies confusion, dizziness, headache(s) or lack of coordination Psychiatric Psychiatric: Denies anxiety, behavioral changes or depression Physical Exam HEENT normocephalic Resp normal respiratory effort and normal air movement GI soft to palpation, non-tender and non-distended Rectal Exam: other Other Details: Incision is clean, dry, and intact no CVA tenderness Extremity normal to inspection General Extremity: edema bilateral (trace ) Assessment & Plan (1) Status post section: (2) intolerance to labor, delivered, current hospitalization: (3) Arrested labor: (4) Multicystic dysplastic kidney, , affecting care of mother, antepartum: QUALIFIERS: Fetus number: single or unspecified fetus Qualified Code(s): O35.EXX0 - Maternal care for other (suspected) abnormality and damage, genitourinary anomalies, not applicable or unspecified COMMENT: left kidney only. growth us q 4 weeks-follow up at [facility] (5) Obesity affecting : QUALIFIERS: Trimester: second trimester Obesity type affecting : unspecified obesity Qualified Code(s): O99.212 - Obesity complicating , second trimester COMMENT: BMI 42-A1C nl with NOB labs NST weekly at 34 weeks (6) Asthma: (7) Hypothyroidism: QUALIFIERS: Hypothyroidism type: unspecified Qualified Code(s): E 03.9 - Hypothyroidism, unspecified COMMENT: thyroid labs q trimester (8) Varicose vein of leg: QUALIFIERS: Varicose vein complication: unspecified Laterality: u nspecified laterality Qualified Code(s): I83.90 - Asymptomatic varicose veins of unspecified lower extremity COMMENT: Right leg above knee (9) Supervision of high-risk : QUALIFIERS: Trimester: second trimester Qualified Code(s): O09.92 - Supervision of high risk , unspecified, second trimester COMMENT: PRR , DICK 03/28/24, surprise Manjinder, father passed- 03/20. (10) PCOS (polycystic ovarian syndrome): COMMENT: on metformin (11) Depression with anxiety: COMMENT: zoloft-stable (12) History of DVT of lower extremity: COMMENT: related to accident recovery/decreased mobility, ordered thrombophilia panel- negative. discussed possible IOL 39-40. plan post prophylactic anticoagulation for 6 weeks PLAN: Plan s/p LTCS PPD # 1 1. routine post care 2. breast feeding- support given 3. rh positive 4. rubella immune 5. h/o dvt- on lovenox now and x 6 weeks post is the plan 6. iron infusion today
[2024-03-22] MEDS: Iron Sucrose Complex 200 MG in 0.9% Normal Saline (100mL Bag) 100 ML 220 MG IV (10:12)
--- NOTE | 2024-03-22 10:12 | CASEMGMT ---
Social Work SW checked back w/FOB and MOB, as per night RN RUSS had reported baby latched for two minutes, to him. SW initially spoke w/both of them about the very recent loss of MOB's father, support offered. Both report to be managing well given the recent loss of MOB's father. They named the baby after MOB's father. MOB states they have a lot of family support, and having a baby is also a great distraction at this moment. FOB explained they tried for four years to have a baby. FOB stated a few times that their main focus is now the baby. SW spoke w/them also about the baby latching to him. FOB states that MOB was showering and he was doing skin to skin, and baby just latched. He is aware that this is not appropriate, both MOB and FOB when retelling the story were smiling, appearing to this SW they both thought this was a humorous situation. FOB states the RN showed him should the baby try to do this again, to have the baby suck on his finger instead. He is aware that this will not be a successful way to feed the baby. SW let MOB and FOB both know SW remains available for any additional support to MOB and FOB. Otherwise no further needs are anticipated. NEYDA George
[2024-03-22] MEDS: Senna/Docusate Sodium 1 Tablet PO (10:13)
[2024-03-22] MEDS: Prenatal Vits Tablet 1 TABLET PO (10:14)
[2024-03-22] MEDS: Sertraline 100 MG Tablet PO (21:50)
[2024-03-23] MEDS: Enoxaparin 40 MG/0.4 ML Syringe SC ×2 (00:33→12:16)
[2024-03-23 03:45] VITALS: BP 120/61; PULSE 96; RESP 14; TEMP 36.3; O2SAT 99
[2024-03-23] MEDS: Acetaminophen 500 MG Tablet 1000 MG PO ×3 (03:51→16:35)
[2024-03-23] MEDS: 0.9% Saline Lock 10 ML Syringe IV (03:52)
[2024-03-23] MEDS: Naproxen 500 MG Tablet PO ×2 (03:52→12:16)
[2024-03-23 04:15] LABS: Hematocrit 24.2 % (37-47); Hemoglobin 8.2 g/dL (12.0-15.0); Mean Corp Hgb Conc 33.9 g/dL (32-36); Mean Corpuscular Hgb 29.6 pg (27.0-32.0); Mean Corpuscular Volume 87.4 fL (81-99); Mean Platelet Vol. 11.3 fl (6.2-12.0); Platelet Count 147 K/mm3 (150-450); RBC Distribution Width CV 14.3 % (11.6-14.6); RBC Distribution Width SD 44.7 fl (35.1-43.9); Red Blood Count 2.77 M/mm3 (4.2-5.4); White Blood Count 7.4 K/mm3 (4.4-11.0)
[2024-03-23] MEDS: Levothyroxine 50 MCG Tablet PO (05:53)
[2024-03-23 08:30] VITALS: BP 117/65; PULSE 98; RESP 18; TEMP 36.9; O2SAT 100
[2024-03-23] MEDS: metFORMIN HCl 500 MG Tablet PO (08:49)
[2024-03-23] MEDS: Prenatal Vits Tablet 1 TABLET PO (09:44)
[2024-03-23] MEDS: Senna/Docusate Sodium 1 Tablet PO (09:45)
--- NOTE | 2024-03-23 10:07 | DS.PCM_ITS ---
Providers Date of Admission: 03/20/24 Primary Care Physician: KERRY Ruiz Reason For Visit: PRIMARY C SECTION Diagnosis Discharge Diagnosis (1) Status post section: Status: Acute Code(s): Z98.891 - History of uterine scar from previous surgery (2) intolerance to labor, delivered, current hospitalization: Status: Acute Code(s): O77.9 - Labor and delivery complicated by stress, unspecified (3) Arrested labor: Status: Acute Code(s): O62.1 - Secondary uterine inertia (4) Multicystic dysplastic kidney, , affecting care of mother, antepartum: Status: Acute Code(s): O35.EXX0 - Maternal care for other (suspected) abnormality and damage, genitourinary anomalies, not applicable or unspecified Qualifiers: Fetus number: single or unspecified fetus Qualified Code(s): O35.EXX0 - Maternal care for other (suspected) abnormality and damage, genitourinary anomalies, not applicable or unspecified (5) Obesity affecting : Status: Acute Code(s): O99.210 - Obesity complicating , unspecified trimester Qualifiers: Trimester: second trimester Obesity type affecting : u nspecified obesity Qualified Code(s): O99.212 - Obesity complicating , second trimester (6) Asthma: Status: Acute Code(s): J45.909 - Unspecified asthma, uncomplicated (7) Hypothyroidism: Status: Acute Code(s): E03.9 - Hypothyroidism, unspecified Qualifiers: Hypothyroidism type: unspecified Qualified Code(s): E03.9 - Hypothyroidism, unspecified (8) Varicose vein of leg: Status: Acute Code(s): I83.90 - Asymptomatic varicose veins of unspecified lower extremity Qualifiers: Varicose vein complication: unspecified Laterality: unspecified laterality Qualified Code(s): I83.90 - Asymptomatic varicose veins of unspecified lower extremity (9) Supervision of high-risk : Status: Acute Code(s): O09.90 - Supervision of high risk , unspecified, unspecified trimester Qualifiers: Trimester: second trimester Qualified Code(s): O09.92 - Supervision of high risk , unspecified, second trimester (10) PCOS (polycystic ovarian syndrome): Status: Acute Code(s): E28.2 - Polycystic ovarian syndrome (11) Depression with anxiety: Status: Acute Code(s): F41.8 - Other specified anxiety disorders (12) History of DVT of lower extremity: Status: Acute Code(s): Z86.718 - Personal history of other venous thrombosis and embolism Plan s/p LTCS PPD # 1 1. routine post care 2. breast feeding- support given 3. rh positive 4. rubella immune 5. h/o dvt- on lovenox now and x 6 weeks post is the plan 6. iron infusion today Medications at Discharge Home Medications sertraline 100 mg tablet (Zoloft) 100 mg PO DAILY 02/14/22 albuterol sulfate 90 mcg/actuation aerosol inhaler 2 puff inhalation Q6H PRN asthma 08/15/23 metformin 500 mg tablet 500 mg PO DAILY 08/15/23 multivitamin no.47-iron fum 27 mg-folate no.1 1 mg-dha 300 mg capsule (PNV-DHA) 1 cap PO DAILY 08/15/23 levothyroxine 50 mcg tablet (Synthroid) 50 mcg PO DAILY #30 tabs 01/09/24 enoxaparin 40 mg/0.4 mL subcutaneous syringe (Lovenox) 60 mg (0.6 mL) subcut Q24H 6 weeks #25.2 mL 03/23/24 ibuprofen 800 mg tablet 800 mg PO Q8H PRN pain #30 tabs 03/23/24 oxycodone-acetaminophen 5 mg-325 mg tablet (Percocet) 1 tab PO Q4H PRN pain 7 days #20 tabs 03/23/24 Hospital Course Operations None and section Summary of Care Provided Minutes Spent on Discharge: 30 Hospital Course: The patient was admitted for active labor management on 03/20/24. Membranes were ruptured for augmentation and she received an epidural. She progressed to 7 cm and contractions spaced out. Pitocin was delayed to be started. 7 hours later she remained 7cm. At that time pitocin was started and she progressed to complete very quickly. However, at that time the heart tones became non- reassuring based on findings of prolonged decelerations. She pushed for 2 hours and was unable to get the station lower than a 0 station. The decision was made to proceed with a primary section. There were no complications. On day #1 she was tolerating pain well and ambulating. Her hg was noted to be 8.7 however and her only symptom was feeling cold. She declined a blood transfusion and accepted an iron infusion. On day #2 she was ambulating better without symptoms of anemia but still felt somewhat weak and anxious. 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 On post op day #3 she was requesting discharge to home. Vital signs were stable. Physical Exam HEENT normocephalic Resp normal respiratory effort and normal air movement GI soft to palpation, non-tender and non-distended Rectal Exam: other Other Details: Incision is clean, dry, and intact no CVA tenderness Extremity normal to inspection General Extremity: edema bilateral (trace ) Weight / BMI Weight Weight: 253 lb 2 oz Body Mass Index (BMI) 46.3 ABG / Lab / Microbiology Data 07// 03:50 Laboratory: Laboratory Results - last 24 hr // 03:50: WBC 7.4, RBC 2.77 L, Hgb 8.2 L, Hct 24.2 L, MCV 87.4, MCH 29.6, MCHC 33.9, RDW Std Deviation 44.7 H, RDW Coeff of Ignacio 14.3, Plt Count 147 L, MPV 11.3 D/C Instructions Discharge Diet: No restrictions May resume sexual activity in: 4-6 weeks Weight Bearing Status: Full weight bearing Call your doctor if your incision/area has: Continuous Slow Oozing, Sudden Increased Bleeding, Increased Pain/ Swelling, Increased Redness and Foul Smelling Discharge Call your doctor if you observe: Fever of 101 or Higher and Using more than 1 pad per hour Suture Line Care: Avoid Pulling/Pushing and Avoid Pinching/Bending Cleanse incision/area with: Soap & Water and Keep Dressing Clean & Dry Please Follow Up With: Gudelia Dominguez DO When: Call [phone] to make an appointment for an incision check in 1-2 weeks. Meaningful Use Info Meaningful Use Meaningful Use Diagnoses (Choose all that apply): None applicable Ischemic Stroke Statin Dosing Therapy Reference: STATIN DOSE THERAPY REFERENCE: * Patients > 75 years receive moderate or high dose statin therapy. * Patients 75 years or YOUNGER should receive HIGH intensity statin dose unless contraindicated. You will be required to document reason for non-treatment if statin daily dose does not meet guidelines. HIGH DOSE STATIN THERAPY DAILY Atorvastatin > than or = to 40 mg Rosuvastatin > than or = to 20 mg Amlodipine + Atorvastatin > than or = to 2.5/40 mg Ezetimibe + Simvastatin 10/80 mg Simvastatin 80mg Discharge Plan Admission Admit Date/Time: 03/20/24 10:55 Attending Provider: Gudelia Dominguez Primary Care Provider: Bushra Collins Discharge Orders/Prescriptions Prescriptions: New ibuprofen 800 mg tablet 800 mg PO Q8H PRN (Reason: pain) Qty: 30 0RF oxycodone-acetaminophen [Percocet] 5-325 mg tablet 1 tab PO Q4H PRN (Reason: pain) 7 Days Qty: 20 0RF Rx Instructions: 1-2 tabs q 4 hrs as needed for pain enoxaparin [Lovenox] 40 mg/0.4 mL syringe 60 mg subcut Q24H 42 Days Qty: 25.2 0RF Continued sertraline [Zoloft] 100 mg tablet 100 mg PO DAILY PNV-DHA 27 mg iron-1 mg -300 mg capsule 1 cap PO DAILY metformin 500 mg tablet 500 mg PO DAILY albuterol sulfate 90 mcg/actuation HFA aerosol inhaler 2 puff inhalation Q6H PRN (Reason: asthma) levothyroxine [Synthroid] 50 mcg tablet 50 mcg PO DAILY Qty: 30 0RF Referrals / Follow Up: Bushra Collins PA [Primary Care Provider] - Disposition Disposition (needs filled in before D/C Order can be placed): Home, Self Care
[2024-03-23 14:00] VITALS: BP 92/63; PULSE 86; RESP 18; TEMP 36.6; O2SAT 98
== END 2024-03-23 18:50 | disposition home or self-care (01) | DRG 788 ==
LOC: WPOUT 10:58 → WP 03-21 01:19
PROVIDERS: Advanced Practice Midwife; Admitting Provider Obstetrics & Gynecology; PCP Physician Assistant; Visit Provider Obstetrics & Gynecology
DX: O76 Abnormality in fetal heart rate and rhythm complicating labor and delivery (principal); O99.214 Obesity complicating childbirth; E03.9 Hypothyroidism, unspecified; F32.A Depression, unspecified; E28.2 Polycystic ovarian syndrome; F41.9 Anxiety disorder, unspecified; O62.1 Secondary uterine inertia; O99.284 Endocrine, nutritional and metabolic diseases complicating childbirth; O69.81X0 Labor and delivery complicated by cord around neck, without compression, not applicable or unspecified; O99.344 Other mental disorders complicating childbirth; O35.EXX0 Maternal care for other (suspected) fetal abnormality and damage, fetal genitourinary anomalies, not applicable or unspecified; O77.1 Fetal stress in labor or delivery due to drug administration; Z37.0 Single live birth; Z3A.39 39 weeks gestation of pregnancy; Z63.4 Disappearance and death of family member; Z79.899 Other long term (current) drug therapy; Z86.718 Personal history of other venous thrombosis and embolism
CPT/HCPCS: 59025; 59050; 85025; 85027; 86780; 86850; 86900; 86901; 99221; J1756; J7030; J7120; A4216; G0378; J2405

== ENCOUNTER 2024-12-08 10:44 | Emergency (ER) | payer OTHER, SELFPAY ==
[2024-12-08 10:45] VITALS: BP 119/77; PULSE 98; RESP 14; TEMP 36.3; O2SAT 98; BMI 43.2
--- NOTE | 2024-12-08 11:22 | EX.ED.DYSGE1 ---
HPI History of Present Illness Chief Complaint: General Illness Informant: patient Onset/Context/Timing Onset: Days (4) Context: Gradual Onset Timing: Continuous Quality: Aching Location: Generalized Worsened by: Nothing Relieved by: Nothing Narrative Narrative: Patient presents with flulike symptoms that have been getting worse over the past 4 days. Patient admits to subjective fevers and chills. Patient states she has been having a cough. Patient admits to some nausea, vomiting, and diarrhea. Patient also admits to a migraine headache. Patient states her symptoms have been waxing and waning over the last 4 days. Patient states nothing makes it better nothing makes it worse. Patient denies any chest pain. Patient denies any urinary complaints. [facility] Medical History Family history of hearing loss at age younger than 7 years Thyroid disorder DVT (deep venous thrombosis) Superficial varicosities Headache Cephalgia Bleeding in early Seasonal allergies History of DVT of lower extremity Anovulation HISTORY OF PLANTERS WART REMOVAL NECK AND BACK PAIN Difficulty balancing Depression with anxiety Knee pain Shoulder pain Shortness of breath Home Medications ?Medication ?Instructions ?Recorded ?Last Taken ?Type sertraline 100 mg tablet (Zoloft) 100 mg PO DAILY 02/14/22 03/19/24 20:00 History 100 mg albuterol sulfate 90 mcg/actuation 2 puff inhalation Q6H PRN asthma 08/15/23 Unknown History aerosol inhaler metformin 500 mg tablet 500 mg PO DAILY 08/15/23 03/19/24 18:00 History 500 mg multivitamin no.47-iron fum 27 1 cap PO DAILY 08/15/23 03/19/24 08:00 History mg-folate no.1 1 mg-dha 300 mg capsule (PNV-DHA) levothyroxine 50 mcg tablet 50 mcg PO DAILY #30 tabs 01/09/24 03/19/24 06:00 Rx (Synthroid) 50 mcg enoxaparin 40 mg/0.4 mL 60 mg (0.6 mL) subcut Q24H 6 weeks 03/23/24 Unknown Rx subcutaneous syringe (Lovenox) #25.2 mL cholecalciferol (vitamin D3) 50 50 mcg PO QDAY 05/10/24 Unknown History mcg (2,000 unit) capsule Allergy/AdvReac Type Severity Reaction Status Date / Time bacitracin (From Neosporin Allergy Intermediate Rash Verified 12/08/24 10:48 ([id number])) neomycin (From Neosporin Allergy Intermediate Rash Verified 12/08/24 10:48 ([id number])) polymyxin B (From Neosporin Allergy Intermediate Rash Verified 12/08/24 10:48 ([id number])) latex Allergy Rash Verified 12/08/24 10:48 banana AdvReac Nausea Verified 12/08/24 10:48 Family History Father Seizures Chiari malformation Lupus Sister PCOS (polycystic ovarian syndrome) Aunt PCOS (polycystic ovarian syndrome) Family history of recurrent miscarriage Mother Family history of recurrent miscarriage 2 miscarriges Surgical History History of surgery History of tonsillectomy and adenoidectomy Social History adopted: No household members: spouse number of children: 1 current occupational status: employed current occupation: [employer] pets and animals: Yes (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) pets and animals: cat(s) history of recent travel: Yes ([place] at [place]) out of state: Yes out of country: No sexually active: Yes Smoking Status: Never smoker alcohol intake: current alcohol intake frequency: holidays/special occasions only details: not while substance use type: does not use diet: other well-balanced diet: daily or most days caffeine: Yes Type: coffee Number of servings: 1 eating out: 1-3 times/week during the past year weight has: decreased > 10 lbs what type of physical activity do you participate in: swimming frequency: 3-4 times per week song/caodaism: L[employer] seatbelt use: always do you feel safe at home: Yes additional social history: - [employer] ROS ROS ED Constitutional Constitutional ED: Reports chills, fever(s) and subjective Eyes Eyes: Denies blurry vision or change in vision ENT ENT ED: Denies rhinorrhea or sore throat Cardiovascular Cardiovascular: Denies chest pain or palpitations Respiratory/Chest Respiratory/Chest: Reports cough; Denies dyspnea Gastrointestinal Gastrointestinal: Reports diarrhea, nausea and vomiting Genitourinary Genitourinary ED: Denies dysuria or hematuria Musculoskeletal Musculoskeletal: Reports neck pain; Denies back pain Integumentary Denies abscess or rash Neurologic Neurologic: Reports headache(s); Denies weakness Allergic/Immunologic Allergic/Immunologic ED: Denies mouth swelling or urticaria EXAM Physical Exam Const Vital Signs: 12/08/24 10:45 12/08/24 12:31 12/08/24 12:45 Temperature 97.4 F L Temperature Source Temporal Pulse Rate 98 78 Respiratory Rate 14 18 Respiratory Effort Normal Non-Labored Respiratory Pattern Normal Blood Pressure 119/77 Blood Pressure Mean 91 Pulse Ox 98 98 Oxygen Delivery Method Room Air Room Air Positive well nourished and well developed Constitutional Narrative: BMI is 43.2. General Appearance ED: well developed and NAD HEENT Reports moist mucous membranes Neck supple and no JVD Resp normal respiratory effort and clear to auscultation bilaterally Cardio regular rate and regular rhythm GI non-tender and non-distended Palpation: soft Extremity normal to inspection Neuro oriented x3, CN's II-XII intact bilaterally and no sensory deficits noted Sensorium / Orientation: alert Motor Exam: strength 5/5 throughout Psych mental status grossly normal MDM MDM MDM Narrative Medical decision making narrative: Differential diagnosis includes viral illness, upper respiratory infection, pneumonia, bronchitis, urinary tract infection, and gastroenteritis. CBC will be obtained to assess for leukocytosis and anemia. Basic metabolic profile will be obtained to assess for electrolyte abnormality and renal function. Urinalysis will be obtained to assess for urinary tract infection. Chest x-ray will be obtained to assess for pneumonia or bronchitis. COVID-19, influenza, and RSV PCR will be obtained to assess for viral illness. Lab Data Attestation: I reviewed the patient's lab results. Lab results narrative: CBC was reviewed. Hemoglobin was slightly elevated at 15.8 and hematocrit was 47.4. The remainder is within normal limits. Basic metabolic profile was reviewed and was within normal limits. Serum hCG was reviewed and was negative. Urinalysis was reviewed. There is no evidence of urinary tract infection or hematuria. COVID-19 PCR was reviewed and was negative. Influenza PCR was reviewed and was negative for influenza A and influenza B. RSV PCR was reviewed and was negative. Labs: Laboratory Results - last 24 hr 12/08/24 12/08/24 11:34 12:20 WBC 4.6 RBC 5.67 H Hgb 15.8 H Hct 47.4 H MCV 83.6 MCH 27.9 MCHC 33.3 RDW Std Deviation 41.1 RDW Coeff of Ignacio 13.4 Plt Count 222 MPV 11.1 Immature Gran % (Auto) 0.200 Neut % (Auto) 53.9 Lymph % (Auto) 30.5 [place] % (Auto) 10.5 H Eos % (Auto) 4.2 Baso % (Auto) 0.7 Absolute Neuts (auto) 2.5 Absolute Lymphs (auto) 1.39 Nucleated RBC % 0 Sodium 138 Potassium 3.7 Chloride 104 Carbon Dioxide 22.2 Anion Gap 13 BUN 12 Creatinine 0.78 Estim Creat Clear Calc 115.91 Est GFR (MDRD) Non-Af 102 BUN/Creatinine Ratio 15.9 Glucose 91 Calcium 9.0 Serum , Qual NEGATIVE Urine Color Yellow Urine Clarity Sl. Cloudy Urine pH 6.0 Ur Specific [place] 1.020 Urine Protein 30 H Urine Glucose (UA) Normal Urine Ketones 15 H Urine Occult Blood Negative Urine Nitrite Negative Urine Bilirubin Negative Urine Urobilinogen Normal Ur Leukocyte Esterase 25 H Urine RBC 0 SEEN Urine WBC 0-5 SEEN Ur Squamous Epith Cells 5-10 SEEN Urine Bacteria 2+ Urine Mucus 1+ Radiography Chest X-Ray - ED: 2 View, Read by ED Physician, Read by Radiologist and No Acute Disease Diagnostic Testing: Clinical Impression(s) from Imaging Studies Chest X-Ray 12/08/24 11:54 IMPRESSION: No radiographic evidence of an acute cardiopulmonary process. Reading [facility] and lateral chest x-ray was obtained. There are 2 views. On my independent interpretation, lung silva are clear. There is normal cardiac silhouette. Bony thorax is normal. There is no acute process noted. Radiologist also interpreted the x-ray and agrees. Treatment and Re-Evaluation :: Patient was given IV fluids. Patient was feeling better on reevaluation. Patient was advised of her findings. Patient was advised that this is most likely a viral illness. Patient was given a note for work. Patient was instructed to drink plenty of fluids. Patient was instructed to follow-up with her primary care physician in 5 to 7 days. Patient understood and was agreeable with the plan. All questions were answered. Discharge Plan Triage Chief Complaint: General Illness ED Provider: Norman Kaplan Dx/Rx/DC Orders Clinical Impression: Viral upper respiratory tract infection, Nausea, vomiting, and diarrhea Instructions: ED URI, Viral, No Abx (Adult) Prescriptions: No Action sertraline [Zoloft] 100 mg tablet 100 mg PO DAILY PNV-DHA 27 mg iron-1 mg -300 mg capsule 1 cap PO DAILY metformin 500 mg tablet 500 mg PO DAILY albuterol sulfate 90 mcg/actuation HFA aerosol inhaler 2 puff inhalation Q6H PRN (Reason: asthma) levothyroxine [Synthroid] 50 mcg tablet 50 mcg PO DAILY Qty: 30 0RF cholecalciferol (vitamin D3) 50 mcg (2,000 unit) capsule 50 mcg PO QDAY enoxaparin [Lovenox] 40 mg/0.4 mL syringe 60 mg subcut Q24H 42 Days Qty: 25.2 0RF Stand Alone Forms: ED Work / School Excuse Primary Care Provider: Care Physician,No Primary Referrals: Lauren Keenan MD [Med Staff - Elementary Instructional Coach] - 5-7 Days Care Physician,No Primary [Primary Care Provider] - Print Language: Finnish Disposition Disposition: Home, Self Care
[2024-12-08 11:40] LABS: Absolute Lymphocyte Count 1.39 X10^3/uL (0.83-4.51); Absolute Neutrophil Count 2.5 X10^3/uL (2.0-7.7); Basophil# 0.03 X10^3/uL; Basophil% 0.7 % (0-1); Eosinophil# 0.19 X10^3/uL; Eosinophils% 4.2 % (0-5); Hematocrit 47.4 % (37-47); Hemoglobin 15.8 g/dL (12.0-15.0); Lymphocyte # 1.39 X10^3/ul (0.83-4.51); Lymphocyte % 30.5 % (19-41); Mean Corp Hgb Conc 33.3 g/dL (32-36); Mean Corpuscular Hgb 27.9 pg (27.0-32.0); Mean Corpuscular Volume 83.6 fL (81-99); Mean Platelet Vol. 11.1 fl (6.2-12.0); Monocyte# 0.48 X10^3/uL; Monocyte% 10.5 % (0-10); NRBC Flagged by Analyzer 0 % (0-5); Neutrophil # 2.46 X10^3/uL (2.7-7.7); Neutrophil % 53.9 % (47-70); Platelet Count 222 K/mm3 (150-450); RBC Distribution Width CV 13.4 % (11.6-14.6); RBC Distribution Width SD 41.1 fl (35.1-43.9); Red Blood Count 5.67 M/mm3 (4.2-5.4); White Blood Count 4.6 K/mm3 (4.4-11.0)
[2024-12-08] MEDS: 0.9% Normal Saline (1000mL) 1,000 ML 1000 ML IV (11:52)
[2024-12-08] MEDS: Acetaminophen 500 MG Tablet 1000 MG PO (11:52)
--- NOTE | 2024-12-08 11:54 | RAD_ITS ---
PROCEDURE: CHEST PA AND LATERAL 12/08/2024 REASON FOR EXAM: COUGH Flu-like symptoms since complaining of nausea, vomiting, diarrhea and dehydration TECHNIQUE: Frontal and lateral views of the chest. COMPARISON: None. FINDINGS: Hardware: None. Heart: Normal size and contour. Mediastinum: Normal contour. Lungs: Lungs are clear no consolidating airspace disease. No pleural effusion Bones: Unremarkable. RAD/Chest PA and Lateral IMPRESSION: No radiographic evidence of an acute cardiopulmonary process. Reading [facility]
[2024-12-08 11:59] LABS: Anion Gap 13 (5-15); BUN 12 mg/dL (4-19); BUN/Creat Ratio 15.9 RATIO (10-20); Carbon Dioxide 22.2 mmol/L (21.0-32.0); Chloride 104 mmol/L (98-108); Creatinine, Serum 0.78 mg/dL (0.70-1.20); EST Glomerular Filtration Rate 102 (>60); Estimated Creatinine Clearance 115.91 ml/min (50-250); Glucose 91 mg/dL (70-99); Potassium 3.7 mmol/L (3.3-5.1); Sodium Level 138 mmol/L (133-145)
[2024-12-08 12:15] LABS: Internal QC Validated? YES +Cl - CLEAR BKGD; Pregnancy, Serum, hCG Quali. NEGATIVE Negative
[2024-12-08 12:26] LABS: Red Blood Cells-Urine 0 SEEN /hpf (0-5)
[2024-12-08 12:31] LABS: Color, Urine Yellow (Yellow); Glucose, Dipstick Normal (Normal); Ketone-Dipstick 15 mg/dl (Negative); Leukocyte Esterase-Dipstick 25 /ul (Negative); Nitrite-Dipstick Negative (Negative); Occult Blood-Urine Negative /ul (Negative); Protein-Dipstick 30 mg/dl (Negative); Urine Bilirubin Dipstick Negative (Negative); Urine Clarity Sl. Cloudy (Clear); Urine Urobilinogen Normal (Normal)
[2024-12-08 12:45] VITALS: PULSE 78; RESP 18; O2SAT 98
[2024-12-08 12:55] LABS: White Blood Cells 0-5 SEEN /hpf (0-5)
[2024-12-08 12:56] LABS: Bacteria 2+ /hpf (None Seen); Mucous, Urine 1+ /hpf (<or=2+); Squamous Epithelial Cells - UA 5-10 SEEN /hpf (5-10)
== END 2024-12-08 13:24 | disposition home or self-care (01) ==
PROVIDERS: Emergency Provider Emergency Medicine; Visit Provider Emergency Medicine
DX: J06.9 Acute upper respiratory infection, unspecified (principal); R19.7 Diarrhea, unspecified; R11.2 Nausea with vomiting, unspecified; F41.8 Other specified anxiety disorders; Z79.899 Other long term (current) drug therapy; Z86.718 Personal history of other venous thrombosis and embolism; Z79.01 Long term (current) use of anticoagulants
CPT/HCPCS: 71046; 80048; 81001; 84703; 85025; 87631; 96360; 99283

== ENCOUNTER → 2025-02-26 | Outpatient (CLI) | payer OTHER, SELFPAY ==
[2025-02-26 16:40] LABS: Absolute Lymphocyte Count 1.85 X10^3/uL (0.83-4.51); Absolute Neutrophil Count 3.5 X10^3/uL (2.0-7.7); Basophil# 0.08 X10^3/uL; Basophil% 1.3 % (0-1); Eosinophil# 0.42 X10^3/uL; Eosinophils% 6.6 % (0-5); Hematocrit 43.6 % (37-47); Hemoglobin 14.9 g/dL (12.0-15.0); Lymphocyte # 1.85 X10^3/ul (0.83-4.51); Lymphocyte % 29.1 % (19-41); Mean Corp Hgb Conc 34.2 g/dL (32-36); Mean Corpuscular Hgb 28.9 pg (27.0-32.0); Mean Corpuscular Volume 84.7 fL (81-99); Mean Platelet Vol. 11.4 fl (6.2-12.0); Monocyte# 0.47 X10^3/uL; Monocyte% 7.4 % (0-10); NRBC Flagged by Analyzer 0 % (0-5); Neutrophil # 3.51 X10^3/uL (2.7-7.7); Neutrophil % 55.3 % (47-70); Platelet Count 245 K/mm3 (150-450); RBC Distribution Width CV 13.4 % (11.6-14.6); RBC Distribution Width SD 41.3 fl (35.1-43.9); Red Blood Count 5.15 M/mm3 (4.2-5.4); White Blood Count 6.4 K/mm3 (4.4-11.0)
[2025-02-26 18:02] LABS: ALB/GLOB Ratio 1.4 RATIO (0.9-2.4); AST(SGOT) 18 U/L (<=31); Alanine Aminotransfer ALT/SGPT 26 U/L (<=34); Albumin, Serum 4.3 g/dL (3.5-5.0); Alkaline Phosphatase 71 U/L (35-104); Anion Gap 13 (5-15); BUN 12 mg/dL (4-19); BUN/Creat Ratio 13.8 RATIO (10-20); Calcium,Total 9.3 mg/dL (7.6-11.0); Chloride 106 mmol/L (98-108); Cholesterol 197 mg/dL (<=200); EST Glomerular Filtration Rate 86 (>60); Glucose 97 mg/dL (70-99); High Density Lipoprotein 45 mg/dL; Low Density Lipoprotein Calc. 128 mg/dL; Potassium 4.3 mmol/L (3.3-5.1); Protein, Total 7.3 g/dL (5.9-8.4); Sodium Level 139 mmol/L (133-145); Total Bilirubin 0.21 mg/dL (0.00-1.30); Triglycerides 119 mg/dL; Very Low Density Lipoprotein 24 mg/dL (5-40); Vitamin D,25 Hydroxy 19.7 ng/mL (30-100); cholesterol:hdl ratio screen 4.38
[2025-02-26 18:21] LABS: Hemoglobin A1c 5.7 % (<=5.6)
--- OUTSIDE RECORDS SUMMARY | 2025-02-26 22:20 | XMS RPT_ITS | CCD ---
Author Organization [facility]ini[facility] Care Team Providers Care Informatics Nurse Name Role Phone Bushra Collins PA-C Primary Care Provider [phone] KERRY Russell Primary Care Provider KERRY Russell Referring Provider [phone] CARA King Attending Provider [phone] Bushra Collins PA-C Primary Care Provider KERRY Russell Primary Care Provider KERRY Russell Referring Provider CARA King Attending Provider Rock HAND GLOVE CLEANER, GIBSON-C Albertina Attending Provider Dr. Carey aNssar Attending Provider Bushra Collins PA-C Primary Care Provider NO PRIMARY CARE, Primary Care Unavailable KHOI KING Referring Unavailable OCHOA WASHINGTON Attending Unavailable CAREY NASSAR Referring Unavailabl e MARK COLLINS Primary Care Unavailable JORGE MURCIA Attending Unavailable MARK COLLINS Primary Care Unavailable JORGE MURCIA Attending Unavailable CAREY NASSAR Referring Unavailabl e MARK COLLINS Primary Care Unavailable CHAO NAJERA Attending Unavailable CAREY NASSAR Referring Unavailabl e MARK COLILNS Primary Care Unavailable CAREY NASSAR Attending UnavailCAREY Chris Referring Unavailabl e MARK COLLINS Primary Care Unavailable OCHOA WASHINGTON Attending Unavailable CAREY NASSAR Referring Unavailabl e Mark Collins PA-C Primary Care Provider Unavailable Haagen BOOKING CLERK.AIMEEMonica Unavailable Daquanjuliana BOOKING CLERK.AIMEE, Daja Gonzalez Unavailable Dr. Norman Kaplan DO Emergency Provider Care Physician, No Primary Primary Care Provider Unavailable Collins PA, M Nam Primary Care Unavailable Collins PA, M Nam Referring Unavailable Albertina Wilkerson NP Attending Unavailable Collins PA, M Nam Primary Care Unavailable Collins PA, M Nam Referring Unavailable Vande Gudelia Euceda Attending Unavailabl e Collins PA, M Nam Primary Care Unavailable Carey Nassar Attending Unavailable Collins PA, M Nam Referring Unavailable Collins PA, M Nam Referring Unavailable Albertina Wilkerson NP Attending Unavailable Collins PA, M Nam Primary Care Unavailable Collins PA, M Nam Primary Care Unavailable Khoi King Referring Unavailable Khoi King Attending Unavailable Care Physician, No Primary Primary Care Unava ilable Norman Kaplan Attending Unavailable Collins PA, M Nam Primary Care Unavailable Rey Feng Attending Unavailable Collins PA, M Nam Primary Care Unavailable Khoi King Referring Unavailable Khoi King Attending Unavailable Gudelia Dominguez Attending Unavailabl Gudelia Box Admitting Unavailabl e Khoi King Referring Unavailable Collins PA, M Nam Primary Care Unavailable Collins PA, M Nam Referring Unavailable Collins PA, M Nam Primary Care Unavailable Khoi King Attending Unavailable Collins PA, M Nam Referring Unavailable Gudelia Dominguez Attending Unavailabl e Collins PA, M Nam Primary Care Unavailable Khoi King Consulting Unavailable Khoi King Admitting Unavailable Khoi King Referring Unavailable Khoi King Attending Unavailable Collins PA, M Nam Primary Care Unavailable Gudelia Dominguez Consulting Unavailabl e Gudelia Dominguez Admitting Unavailabl Gudelia Box Attending Unavailabl e Collins PA, M Nam Referring Unavailable Vande Gudelia Euceda Attending Unavailabl e Collins PA, M Nam Primary Care Unavailable Collins PA, M Nam Primary Care Unavailable Collins PA, M Nam Referring Unavailable Catherine Vizcarra NP Attending Unavailable Collins PA, M Nam Referring Unavailable Collins PA, M Nam Primary Care Unavailable Khoi King Attending Unavailable Collins PA, M Nam Referring Unavailable Collins Bushra PAYNE Primary Care Unavailable Khoi King Attending Unavailable Collins Bushra PAYNE Primary Care Unavailable CollinsBushra Barrientos Referring Unavailable Gudelia Dominguez Attending Unavailabl e Collins Bushra PAYNE Primary Care Unavailable CollinsBushra Barrientos Referring Unavailable Carey Nassar Attending Unavailable Collins KERRY, Bushra Browning Primary Care Unavailable Collins Bushra PAYNE Referring Unavailable Gudelia Dominguez Attending Unavailabl e Collins KERRY, Bushra Browning Primary Care Unavailable Collins KERRY, M Nam Referring Unavailable Zackery HAND GLOVE CLEANERCatherine Attending Unavailable Collins PA, M Nam Primary Care Unavailable Gudelia Dominguez Referring UnavailGudelia Locke Attending Unavailabl e Dennis PAYNE, Bushra Browning Referring Unavailable CollinsBushra Barrientos Primary Care Unavailable Rodolfo Carpenter Attending Unavailable MARK COLLINS Primary Care Unavailable SELF Referring Unavailable MONICA GERARD Attending Unavailable ADAM CARBAJAL Attending Unavailable ANA CAMEJO Referring Unavailable Allergies Allergy Classification Reported Allergen(s) Allergy Type Date of Onset Reaction(s) Facility (20 sources) Banana Extract; Translations: [BANANA] Drug Allergy 05-19-2016 [facility] Work Phone: (20 sources) Latex; Translations: [LATEX] Drug Allergy 05-19-2016 [facility] Work Phone: (9 sources) Bacitracin; Translations: [BACITRACIN] Drug Allergy 02-14-2022 [facility] (9 sources) Neomycin; Translations: [NEOMYCIN] Drug Allergy 02-14-2022 [facility] (9 sources) Polymyxin B; Translations: [POLYMYXIN B] Drug Allergy 02-14-2022 [facility] (1 source) Bacitracin Drug Allergy 12-08-2024 [facility] (1 source) Banana Extract Drug Allergy 12-08-2024 [facility] (1 source) Latex Drug allergy (disorder) 12-08-2024 [facility] (1 source) Neomycin Drug Allergy 12-08-2024 [facility] (1 source) polymyxin B Drug allergy (disorder) 12-08-2024 [facility] Medications Current Medications Medication Drug Class(es) Dates Sig (Normalized) Sig (Original) [id number] 200 actuat albuterol 0.09 mg/actuat metered dose inhaler (20 sources) beta2-Adrenergic Agonist Start: 08-15-2023 Albuterol Sulfate 90 mcg/actuation HFA aerosol inhaler Active 2 NMA INHALATION EVERY 6 HOURS as needed for asthma August 15, 2023 1:00am Start: 08-15-2023 take 1 puff(s) by in halation every six hours Albuterol Sulfate Active 2 PUFF INHALATION EVERY 6 HOURS August 15, 2023 1:00am Start: 08-03-2017 take 2 puff(s) by in halation every four hours as needed for wheezing albuterol HFA (VENTOLIN HFA) 90 mcg/actuation inhaler Indications: Acute bronchitis, unspecified organism Inhale 2 Puffs as instructed every 4 hours as needed for Wheezing/Shortness of Breath. 1 Inhaler 08/03/2017 Active Comment on above: Inhale 2 Puffs as in structed every 4 hours as needed for Wheezing/Shortness of Breath. amoxicillin 500 mg oral capsule (1 source) Penicillin-class Antibacterial Start: 025 End: take 2 capsules by mouth three times daily amoxicillin (AMOXIL) 500 mg capsule Take 2 capsules by mouth three times a day for 5 days. 30 capsule 10/08/2024 10/13/2024 Active benzonatate 100 mg oral capsule (1 source) Non-narcotic Antitussive Start: take 2 capsules by mouth three times daily as needed benzonatate (TESSALON PERLE) 100 mg capsule Indications: URI with cough and congestion Take 2 capsules by mouth three times daily as needed. 30 capsule 0 04/09/2023 Active Start: 04-09-2023 take 2 capsules by m outh three times daily as needed benzonatate (TESSALON PERLE) 100 mg capsule Indications: URI with cough and congestion Take 2 capsules by mouth three times daily as needed. 30 capsule 0 04/09/2023 Active Comment on above: Take 2 capsules by m outh three times daily as needed. cephalexin 500 mg oral capsule (7 sources) Cephalosporin Antibacterial Start: 2 End: 2 take 1 capsule by mouth four times daily cephALEXin (KEFLEX) 500 mg capsule Take 1 capsule by mouth four times daily for 5 days. 20 capsule 0 01/13/2022 01/18/2022 Active Start: 07-24-2019 End: 01-21-2021 take 1 capsule by mouth every twelve hours Cephalexin 500 MG capsule Discontinued 500 mg PO EVERY 12 HOURS July 24, 2019 1:00am January 21, 2021 2:06pm Comment on above: Take 1 capsule by [facility] four times daily for 5 days. cholecalciferol 0.05 mg oral capsule (1 source) Vitamin D Start: 05-10-20 24 take 1 capsule by mouth once daily Cholecalciferol (Vitamin D3) 50 mcg (2,000 unit) capsule Active 50 ug PO daily May 10, 2024 12:00am 0.4 ml enoxaparin sodium 100 mg/ml prefilled syringe (1 source) Low Molecular Weight Heparin Start: 03-23-20 24 Enoxaparin (Lovenox) 40 mg/0.4 mL syringe Active 60 mg SC Q24H 25.2 42 March 23, 2024 12:00am ergocalciferol 1.25 mg oral capsule (15 sources) Provitamin D2 Compound Start: 06-02-20 23 take 1 capsule by mouth every week ergocalciferol 50,000 unit capsule (VITAMIN D2, DRISDOL) Indications: Vitamin D deficiency , Elevated PTHrP level Take 1 capsule by mouth one time a week. 12 capsule 3 06/02/2023 Active Start: 02-03-2023 take 1 capsule by [facility] every week ergocalciferol 50,000 unit capsule (VITAMIN D2, DRISDOL) Take 1 capsule by mouth one time a week. 12 capsule 3 02/03/2023 Active Comment on above: Take 1 capsule by [facility] one time a week. fluticasone propionate 0.05 mg/actuat metered dose nasal spray (20 sources) Corticosteroid Start: 06-03-20 19 take 2 spray(s) by mouth once daily fluticasone (FLONASE) 50 mcg/actuation nasal spray Use 2 Sprays in each nostril once daily. Rinse mouth after use. 1 Bottle 11 06/03/2019 Active Comment on above: Use 2 Sprays in each nostril once daily. Rinse mouth after use. 12 hr guaiFENesin 600 mg extended release oral tablet (1 source) Start: 04-09-20 take 2 tablets by mouth twice daily guaiFENesin (MUCINEX) 600 mg 12 hr tablet Indications: URI with cough and congestion Take 2 tablets by mouth twice daily. 24 tablet 0 04/09/2023 Active Start: 04-09-2023 take 2 tablets by mo [facility] twice daily guaiFENesin (MUCINEX) 600 mg 12 hr tablet Indications: URI with cough and congestion Take 2 tablets by mouth twice daily. 24 tablet 0 04/09/2023 Active Comment on above: Take 2 tablets by mo [facility] twice daily. metFORMIN hydrochloride 500 mg oral tablet (19 sources) Biguanide Start: 08-15-2023 take 1 tablet by mouth once daily Metformin 500 mg tablet Active 500 mg PO DAILY August 15, 2023 1:00am Start: 08-15-2023 take 500 mg by mouth three times daily Metformin Active 500 MG PO THREE TIMES A DAY August 15, 2023 1:00am Start: 02-27-2023 take 1 tablet by larissa once daily at breakfast metFORMIN ER (GLUCOPHAGE XR) 500 mg 24 hr tablet Take 500 mg by mouth daily with breakfast. 02/27/2023 Active Comment on above: TAKE 1 TABLET BY LARISSA TH ONCE DAILY after dinner for 1 week, then 1 tablet after breakfast and 1 tablet after dinner for 1 week then 1 tablet after breakfast and 2 tablets after dinner Multivit 12-Nypq-Ncfxdu 1-Dha (Pnv-Dha) 27 mg iron-1 mg -300 mg capsule (5 sources) Start: 08-15-2023 Multivit 67-Xefc-Tztogv 1-Dha (Pnv-Dha) 27 mg iron-1 mg -300 mg capsule Active 1 NMA PO DAILY August 15, 2023 1:00am Start: 08-15-2023 Multivit 47-Ir on-Folate 1-Dha (Pnv-Dha) 27 mg iron-1 mg -300 mg capsule Active CAP PO August 15, 2023 1:00am Start: 08-15-2023 Multivit 47-Ir on-Folate 1-Dha (Pnv-Dha) 27 mg iron-1 mg -300 mg capsule Active CAP PO August 15, 2023 12:00am omeprazole 20 mg delayed release oral capsule (17 sources) Proton Pump Inhibitor Start: 12-19-2022 End: 06-04-2024 take 1 capsule by mouth once daily before breakfast as needed omeprazole (PRILOSEC) 20 mg capsule Indications: Gastritis with hemorrhage, unspecified chronicity, unspecified gastritis type Take 1 capsule by mouth daily before breakfast. 1/2 hr before meal. As needed 30 capsule 06/04/2024 Active Comment on above: Take 1 capsule by [facility] daily before breakfast. 1/2 hr before meal. predniSONE 20 mg oral tablet (1 source) Start: 04-09-2023 End: 04-14-2023 take 2 tablets by mouth once daily predniSONE (DELTASONE) 20 mg tablet Indications: URI with cough and congestion Take 2 tablets by mouth once daily for 5 days. 10 tablet 0 04/09/2023 04/14/2023 Active Comment on above: Take 2 tablets by [facility] once daily for 5 days. 25/iron fum/folic/dha (-1 ORAL) (20 sources) 25/iron fum/folic/dha (-1 ORAL) Take by mouth. Active 25/iron fum/folic/dha (-1 ORAL) Take by mouth. 0 Active Comment on above: Take by mouth. sertraline 100 mg oral tablet (20 sources) Serotonin Reuptake Inhibitor Start: 12-09-2021 End: 01-19-2025 take 1 tablet by mouth once daily sertraline (ZOLOFT) 100 mg tablet Indications: Adjustment reaction with anxiety and depression Take 1 tablet by mouth once daily. 30 tablet 01/20/2025 Active Start: 10-21-2021 End: 12-09-2021 take 1 tablet by mouth once daily sertraline (ZOLOFT) 50 mg tablet Take 1 tablet by mouth once daily. 30 tablet 5 10/21/2021 12/09/2021 Discontinued (Course of therapy completed) Comment on above: Take 1 tablet by [facility] once daily. triamcinolone acetonide 1 mg/ml topical cream (20 sources) Corticosteroid Start: 01-13-2022 triamcinolone acetonide (KENALOG) 0.1 % cream Apply 1 application to affected area three times daily. Apply sparingly to area for rash/itching. 30 g 01/13/2022 Active Comment on above: Apply 1 application to affected area three times daily. Apply sparingly to area for rash/itching. Completed/Discontinued Medications Medication Drug Class(es) Dates Sig (Normalized) Sig (Original) acetaminophen 325 mg / HYDROcodone bitartrate 5 mg oral tablet (6 sources) Opioid Agonist Start: 07-24-2019 End: 08-01-2019 Hydrocodone-Acetami nophen 1 TABLET tablet Discontinued 1 {tbl} PO EVERY 6 HOURS NEEDED as needed for Pain 10 July 24, 2019 July 26, 2019 1:00am August 01, 2019 1:08am Start: 07-24-2019 End: 08-01-2019 take 1 tablet by mouth every six hours as needed Hydrocodone-Acetaminophen Discontinued 1 TABLET PO EVERY 6 HOURS NEEDED 10 July 24, 2019 August 01, 2019 1:08am acetaminophen 325 mg / oxyCODONE hydrochloride 5 mg oral tablet (1 source) Opioid Agonist Start: 03-23-2024 End: 04-10-2024 take 1-2 tablets by mouth every four hours as needed for pain Oxycodone-Acetaminophen (Percocet) 5-325 mg tablet Discontinued 1 {tbl} PO Q4H as needed for pain 23 03March 23, 2024 April 10, 2024 10:58am 1-2 tabs q 4 hrs as needed for pain Desogestrel-Ethiny l Estradiol (6 sources) Progestin, Estrogen Start: 07-23-2019 End: 01-21-2021 Desogestrel-Ethinyl Estradiol 1 EACH tablet Discontinued 1 {tbl} PO DAILY July 23, 2019 1:00am January 21, 2021 2:06pm Start: 07-23-2019 End: 01-21-2021 take 1 tablet by mouth once daily Desogestrel-Ethinyl Estradiol Discontinued 1 TABLET PO DAILY July 23, 2019 1:00am January 21, 2021 2:06pm Start: 07-23-2019 End: 01-21-2021 take 1 tablet by mouth once daily Desogestrel-Ethinyl Estradiol Discontinued 1 TABLET PO DAILY July 23, 2019 12:00am January 21, 2021 1:06pm Ethinyl Estradiol / norgestimate (1 source) Progestin, Estrogen Start: 11-05-2019 End: 01-29-2021 take 1 tablet by mouth once daily norgestimate 0.25 mg-ethinyl estradiol 35 mcg (SPRINTEC) 0.25-35 mg-mcg per tablet Indications: Surveillance for control, oral contraceptives Take 1 tablet by mouth once daily. 3 Package 3 11/05/2019 01/29/2021 Discontinued (Discontinued by Patient) hydrOXYzine hydrochloride 25 mg oral tablet (20 sources) Antihistamine Start: 03-26-2020 End: 12-03-2023 take 1 tablet by mouth every six hours as needed hydrOXYzine HCl (ATARAX) 25 mg tablet Take 1 tablet by mouth every 6 hours as needed for itching/rash. 15 tablet 1 11/16/2021 12/03/2023 Discontinued Start: 07-23-2019 End: 01-21-2021 Hydroxyzine Pamoate 50 MG ca psule Discontinued 1 {tbl} PO NEEDED as needed for Insomnia July 23, 2019 1:00am January 21, 2021 2:06pm Start: 07-23-2019 End: 01-21-2021 Hydroxyzine Pamoate Disconti nued 1 TABLET PO NEEDED July 23, 2019 1:00am January 21, 2021 2:06pm Comment on above: Take 1 tablet by larissa every 6 hours as needed for itching/rash. ibuprofen 800 mg oral tablet (1 source) Nonsteroidal Anti-inflammatory Drug Start: 03-23-20 End: 05-10-20 take 1 tablet by mouth every eight hours as needed for pain Ibuprofen 800 mg tablet Discontinued 800 mg PO Q8H as needed for pain March 23, 2024 12:00am May 10, 2024 11:28am letrozole 2.5 mg oral tablet (6 sources) Aromatase Inhibitor Start: 02-15-20 End: 08-15-20 take 1 tablet by mouth once daily Letrozole 2.5 mg tablet Discontinued 2.5 mg PO DAILY February 14, 2022 12:00am August 15, 2023 11:32am Take cycle days 3-7 levothyroxine sodium 0.05 mg oral tablet (20 sources) l-Thyroxine Start: 08-15-20 End: 12-09-19 take 1 tablet by mouth once daily Levothyroxine (Synthroid) 50 mcg tablet Discontinued 50 ug PO DAILY January 09, 2024 4:38pm December 08, 2024 1:23pm Start: 02-17-2023 take 1 tablet by larissa th once daily in the morning levothyroxine (SYNTHROID) 25 mcg tablet Take 1 tablet by mouth in the morning; Take every morning 1 hour before food. 02/17/2023 Active Comment on above: Take 1 tablet by larissa th in the morning; Take every morning 1 hour before food. medroxyPROGESTERone acetate 10 mg oral tablet (20 sources) Progestin Start: 2 End: Medroxyprogesterone 10 mg tablet Discontinued 10 mg PO daily 06 13June 17, 2022 2:56pm August 15, 2023 11:31am cycle day 30 if no menses and negative test Start: 01-21-2021 End: 06-04-2024 take 1 tablet by mouth once daily Medroxyprogesterone (Provera) 10 mg tablet Discontinued 10 mg PO DAILY September 22, 2021 12:15pm February 14, 2022 8:05am Comment on above: Take 10 mg by mouth once daily. methylPREDNISolone (1 source) Corticosteroid Start: 2019 End: 2019 methylPREDNISolone (MEDROL, MONICA,) 4 mg Dose-Pack Follow dosing instructions, take with food. 1 Package 08/21/2020 08/27/2020 miSOPROStol 0.2 mg oral tablet (1 source) Prostaglandin E1 Analog Start: 2018 End: 2020 miSOPROStol (CYTOTEC) 200 mcg tablet Indications: Menorrhagia with regular cycle Insert 2 tables vaginally night prior to procedure and 2 tablets morning of procedure. 4 tablet 08/13/2019 01/29/2021 Discontinued (Course of therapy completed) ondansetron 4 mg disintegrating oral tablet (3 sources) Serotonin-3 Receptor Antagonist Start: 2023 End: 2023 take 1 tablet by mouth every six hours Ondansetron 4 mg tablet,disintegrating Discontinued 4 mg PO EVERY 6 HOURS September 19, 2023 1:00am March 20, 2024 10:52am PARoxetine hydrochloride 20 mg oral tablet (7 sources) Serotonin Reuptake Inhibitor Start: 2018 End: 06-13- 2022 Paroxetine Hcl 20 MG tablet Discontinued 1 {tbl} PO DAILY July 23, 2019 1:00am February 14, 2022 8:05am Start: 07-23-2019 End: 02-14-2022 take 1 tablet by mouth once daily PARoxetine (PAXIL) 20 mg tablet Indications: Adjustment reaction with anxiety and depression , Passive suicidal ideations Take 1 tablet by mouth once daily. 90 tablet 1 06/22/2020 01/29/2021 Discontinued (Adjust Sig - Block E-Cancel) rivaroxaban 20 mg oral tablet (6 sources) Factor Xa Inhibitor Start: 08-05-2019 End: 01-21-2021 Rivaroxaban 15 mg (42)- 20 mg (9) tablets,dose pack Discontinued {tbl} PO August 05, 2019 1:00am January 21, 2021 2:06pm Start: 08-05-2019 End: 01-21-2021 Rivaroxaban Discontinued TAB LET PO August 05, 2019 1:00am January 21, 2021 2:06pm Start: 08-05-2019 End: 01-21-2021 Rivaroxaban Discontinued TAB LET PO August 05, 2019 12:00am January 21, 2021 1:06pm Problems Active Problems Problem Classification Problem Date Documented Date Episodic/Chronic Abdominal pain (1 source) Female genital organ symptoms; Translations: [Pelvic and perineal pain] Episodic Adjustment disorders (20 sources) Adjustment disorder with mixed anxiety and depressed mood; Translations: [Adjustment disorder with mixed anxiety and depressed mood] Onset: 06-08-2016 06-08-2016 Chronic Anxiety disorders (20 sources) Generalized anxiety disorder; Translations: [Generalized anxiety disorder] Onset: 09-04-2015 06-19-2019 Chronic Comment on above: zoloft-stable Asthma (13 sources) Asthma; Translations: [Unspecified asthma, uncomplicated] Onset: 03-20-2024 08-15-2023 Chronic Female infertility (20 sources) Anovulation; Translations: [Female infertility associated with anovulation] Onset: 06-02-2023 06-02-2023 Chronic Comment on above: provera challenge, l etrozole, day 21 progesterone;confirm ovulation, SA out of range count & morphology, refer to [facility] Headache; including migraine (3 sources) Headache; Translations: [Headache] 03-11-2024 Episodic Headache; including migraine (2 sources) Headache; including migraine; Translations: [Headache, unspecified] Onset: 03-21-2024 Hemorrhage during ; abruptio placenta; placenta previa (10 sources) Antepartum hemorrhage; Translations: [Hemorrhage in early , unspecified] 08-15-2023 Episodic Comment on above: resolved Menstrual disorders (5 sources) Irregular periods; Translations: [Irregular menstruation, unspecified] 01-21-2021 Chronic Nausea and vomiting (3 sources) Nausea; Translations: [Nausea] Episodic Nutritional deficiencies (20 sources) Vitamin D deficiency; Translations: [Vitamin D deficiency, unspecified] Onset: 02-03-2023 Chronic Other complications of ; puerperium affecting management of mother (4 sources) Anomaly of kidney; 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 gr owth us q 4 weeks-[facility] Other complications of (3 sources) Maternal obesity complicating , childbirth and the puerperium, antepartum; Translations: [Obesity complicating , unspecified trimester] 08-24-2023 Chronic Other complications of (8 sources) Obesity complicating , unspecified trimester; Translations: [Obesity complicating , childbirth, or the puerperium, unspecified as to episode of care or not applicable] 08-24-2023 Chronic Other complications of (2 sources) Obesity complicating , second trimester; Translations: [Obesity complicating , second trimester] Onset: 03-20-2024 Chronic Other complications of (5 sources) High risk ; Translations: [Supervision of high risk , unspecified, unspecified trimester] 08-15-2023 Episodic Comment on above: PRR , DICK 03/28/ 4, surprise Manjinder, father passed- 03/20. Other complications of (2 sources) Nausea and vomiting; Translations: [Vomiting of , unspecified] 09-19-2023 Episodic Other complications of (4 sources) Vomiting of , unspecified; Translations: [Unspecified vomiting of , unspecified as to episode of care or not applicable] 09-19-2023 Episodic Other endocrine disorders (18 sources) Polycystic ovary syndrome; Translations: [Polycystic ovarian syndrome] Onset: 06-02-2023 06-02-2023 Chronic Comment on above: on metformin Other endocrine disorders (9 sources) Polycystic ovarian syndrome; Translations: [Polycystic ovaries] Onset: 03-20-2024 08-24-2023 Chronic Other inflammatory condition of skin (1 source) Erythema; Translations: [Erythematous condition, unspecified] Episodic Other lower respiratory disease (1 source) Wheezing; Translations: [Wheezing] 04-09-2023 Episodic Other lower respiratory disease (1 source) Cough; Translations: [Acute cough] 10-08-2024 Episodic Other nervous system disorders (1 source) H/O: migraine; Translations: [Personal history of other diseases of the nervous system and sense organs] 03-21-2024 Episodic Other nutritional; endocrine; and metabolic disorders (20 sources) Body mass index 40+ - severely obese; Translations: [Morbid (severe) obesity due to excess calories] Onset: 06-19-2019 06-19-2019 Chronic Other nutritional; endocrine; and metabolic disorders (6 sources) Obesity; Translations: [Obesity, unspecified] 02-14-2022 Chronic Other nutritional; endocrine; and metabolic disorders (2 sources) Obesity, unspecified; Translations: [Obesity, unspecified] 09-19-2023 Chronic Other skin disorders (1 source) Eruption; Translations: [Rash and other nonspecific skin eruption] Episodic Other upper respiratory infections (3 sources) Upper respiratory infection; Translations: [Acute upper respiratory infection, unspecified] Onset: 12-12-2024 04-09-2023 Episodic Pneumonia (except that caused by tuberculosis or sexually transmitted disease) (1 source) Community acquired pneumonia; Translations: [Pneumonia, unspecified organism] 10-08-2024 Episodic Residual codes; unclassified (1 source) Gestation period, 38 weeks; Translations: [38 weeks gestation of ] 03-21-2024 Episodic Residual codes; unclassified (1 source) Infertile 10-16-2023 Episodic Comment on above: RGI pt/clomid Thyroid disorders (20 sources) Hypothyroidism; Translations: [Hypothyroidism, unspecified] Onset: 04-06-2024 08-24-2023 Chronic Comment on above: thyroid labs q trime ster Unclassified (12 sources) Infertile;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 DAILY 08/15/23 04/10/24 History multivitamin no.47-iron fum 27 1 cap PO DAILY 08/15/23 05/10/24 History mg-folate no.1 1 mg-dha 300 mg capsule (PNV-DHA) levothyroxine 50 mcg tablet 50 mcg PO DAILY #30 tabs 01/09/24 05/10/24 Rx (Synthroid) enoxaparin 40 mg/0.4 mL 60 mg (0.6 mL) subcut Q24H 6 weeks 03/23/24 05/10/24 Rx subcutaneous syringe (Lovenox) #25.2 mL cholecalciferol (vitamin D3) 50 50 mcg PO QDAY 05/10/24 05/10/24 History mcg (2,000 unit) capsule : Yes PFSH Medical History Family history of hearing loss at age younger than 7 years Thyroid disorder DVT (deep venous thrombosis) Superficial varicosities Headache Cephalgia Bleeding in early Seasonal allergies History of DVT of lower extremity Anovulation HISTORY OF PLANTERS WART REMOVAL NECK AND BACK PAIN Difficulty balancing Depression with anxiety Knee pain Shoulder pain Shortness of breath Surgical History History of surgery History of tonsillectomy and adenoidectomy Family History Father Seizures Chiari malformation Lupus Sister PCOS (polycystic ovarian syndrome) Aunt PCOS (polycystic ovarian syndrome) Family history of recurrent miscarriage Mother Family history of recurrent miscarriage 2 miscarriges Social History (Updated 05/10/24 @ 11:29 by Roxy Abel) adopted: No household members: spouse number of children: 1 current occupational status: employed current occupation: [employer] pets and animals: Yes (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) pets and animals: cat(s) history of recent travel: Yes ([employer] at [place]) out of state: Yes out of country: No sexually active: Yes Smoking Status: Never smoker alcohol intake: current alcohol intake frequency: holidays/special occasions only details: not while substance use type: does not use diet: other well-balanced diet: daily or most days caffeine: Yes Type: coffee Number of servings: 1 eating out: 1-3 times/week during the past year weight has: decreased > 10 lbs what type of physical activity do you participate in: swimming frequency: 3-4 times per week song/holiness: Jew seatbelt use: always do you feel safe at home: Yes additional social history: - [employer] History 1 Elective abortions Hx Para 1 Spontaneous abortions Hx # Term Pregnancies Ectopic pregnancies Hx # Pregnancies Multiple births # of living children 1 Past Pregnancies Del. Date Name GA/Weeks Outcome Route Bth Weight Gen Labor Lgth Anesthesia Del Locatn Provider FOB 03/21/24 Miguel 39 live - full term 8# Male epidural [facility] Gudelia Knowles Delivery Date: 03/21/24 Last Updated by: Rupinder Cowan low transverse, c section decels Depression Screen PHQ-2/9 PHQ-2 Over the last 2 weeks, how often have you been bothered by any of the following problems? 1. Little interest or pleasure in doing things: not at all 2. Feeling down, depressed, or hopeless: several days Total score: 1 If score is 2 or greater, continue 3. Trouble falling or staying asleep, or sleeping too much: not at all 4. Feeling tired or having little energy: several days 5. Poor appetite or overeating: several days 6. Feeling bad about yourself - or that you are a failure (more content not included)... Normal [facility] Transcription Typist Office Visit Reporton 04-10-2024 Transcription Typist Office Visit Report [facility] [address] [place] [address] OFFICE VISIT Date of Service: 04/10/24 MR#: [id number] Acct: [id number] Name: MILDRED MICHEL Rep #: [id number] : 1990 Provider: MARILYN pardo Age/Sex: 33/F Location: [facility] – [place] Status: Signed Intake Vital Signs 03/26/24 09:29 04/10/24 10:57 Height 5 ft 2 in 5 ft 2 in Weight: 236 lb 8 oz BMI 43.2 BP 114/74 Intake Visit Reasons: visit (obstetrics) Allergies bacitracin (From Neosporin (pxs-ozj-fvocs)) Allergy (Intermediate, Verified 04/10/24 10:57) Rash neomycin (From Neosporin (yxv-usf-ykuds)) Allergy (Intermediate, Verified 04/10/24 10:57) Rash polymyxin B (From Neosporin (fhe-ign-uodjj)) Allergy (Intermediate, Verified 04/10/24 10:57) Rash latex Allergy (Verified 04/10/24 10:57) Rash banana Adverse Reaction (Verified 04/10/24 10:57) Nausea Medications ???Medication ???Instructions ???Recorded ???Confirmed ???Type sertraline 100 mg tablet (Zoloft) 100 mg PO DAILY 02/14/22 04/10/24 History albuterol sulfate 90 mcg/actuation 2 puff inhalation Q6H PRN asthma 08/15/23 04/10/24 History aerosol inhaler metformin 500 mg tablet 500 mg PO DAILY 08/15/23 04/10/24 History multivitamin no.47-iron fum 27 1 cap PO DAILY 08/15/23 04/10/24 History mg-folate no.1 1 mg-dha 300 mg capsule (PNV-DHA) levothyroxine 50 mcg tablet 50 mcg PO DAILY #30 tabs 01/09/24 04/10/24 Rx (Synthroid) enoxaparin 40 mg/0.4 mL 60 mg (0.6 mL) subcut Q24H 6 weeks 03/23/24 04/10/24 Rx subcutaneous syringe (Lovenox) #25.2 mL ibuprofen 800 mg tablet 800 mg PO Q8H PRN pain #30 tabs 03/23/24 04/10/24 Rx PFSH Medical History Family history of hearing loss at age younger than 7 years Thyroid disorder DVT (deep venous thrombosis) Superficial varicosities Headache Cephalgia Bleeding in early Seasonal allergies History of DVT of lower extremity Anovulation HISTORY OF PLANTERS WART REMOVAL NECK AND BACK PAIN Difficulty balancing Depression with anxiety Knee pain Shoulder pain Shortness of breath Surgical History History of surgery History of tonsillectomy and adenoidectomy Family History Father Seizures Chiari malformation Lupus Sister PCOS (polycystic ovarian syndrome) Aunt PCOS (polycystic ovarian syndrome) Family history of recurrent miscarriage Mother Family history of recurrent miscarriage 2 miscarriges Social History adopted: No household members: spouse current occupational status: employed current occupation: [employer] pets and animals: Yes (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) pets and animals: cat(s) history of recent travel: Yes ([facility] at [place]) out of state: Yes out of country: No sexually active: Yes Smoking Status: Never smoker alcohol intake: current alcohol intake frequency: holidays/special occasions only details: not while substance use type: does not use diet: other well-balanced diet: daily or most days caffeine: Yes Type: coffee Number of servings: 1 eating out: 1-3 times/week during the past year weight has: decreased > 10 lbs what type of physical activity do you participate in: swimming frequency: 3-4 times per week song/holiness: Jew seatbelt use: always do you feel safe at home: Yes additional social history: - [employer] [facility] Routine Follow-Up Details: MILDRED MICHEL is a 33 year old who presents for 2 week incision check. States doing well physically, occasionally taking ibuprofen for pain. Emotionally has been difficult, not with baby but with sudden loss of her father prior to delivery and missing as was in labor that day and delivered. Her uncle then last week so lots of grief she is dealing with. She feels the zoloft is adequate. Her therapist recently left area so needs to establish with someone. Baby Miguel is doing well, History 1 Elective abortions Hx Para 1 Spontaneous abortions Hx # Term Pregnancies Ectopic pregnancies Hx # Pregnancies Multiple births # of living children 1 Past Pregnancies Del. Date Name GA/Weeks Outcome Route Bth Weight Gen Labor Lgth Anesthesia Del Locatn Provider FOB 03/21/24 Miguel 39 live - full term 8# Male epidural [facility] Gudelia Knowles Delivery Date: 03/21/24 Last Updated by: Rupinder Cowan low transverse, c section decels Exam Const General: cooperative and no acute distress Orientation: oriented x3 GI Inspection: incision (well (more content not included)... Normal [facility] MR/BMS.BBCon 03-26-2024 MR/BMS.[facility] [address] [place] [address] OFFICE VISIT Date of Service: 03/25/24 MR#: [id number] Acct: [id number] Name: MILDRED MICHEL Rep #: [id number] : 1990 Provider: Catherine Vizcarra NP Age/Sex: 33/F Location: [facility] [place] Status: Signed Intake Vital Signs 03/20/24 10:26 03/26/24 09:29 Height 5 ft 2 in 5 ft 2 in Intake Visit Reasons: Visit Chief Complaint: assessment Accompanied by: Allergies bacitracin (From Neosporin (igp-mrn-hknwb)) Allergy (Intermediate, Verified 03/20/24 10:48) Rash neomycin (From Neosporin (rjj-fpf-cisnu)) Allergy (Intermediate, Verified 03/20/24 10:48) Rash polymyxin B (From Neosporin (tcu-mnc-lkgdg)) Allergy (Intermediate, Verified 03/20/24 10:48) Rash latex Allergy (Verified 03/20/24 10:48) Rash banana Adverse Reaction (Verified 03/20/24 10:48) Nausea : Yes PFSH PFSH Medical History (Updated 03/21/24 @ 01:[address] Gudelia Dominguez DO) Family history of hearing loss at age younger than 7 years Thyroid disorder DVT (deep venous thrombosis) Superficial varicosities Headache Cephalgia Bleeding in early Seasonal allergies History of DVT of lower extremity Anovulation HISTORY OF PLANTERS WART REMOVAL NECK AND BACK PAIN Difficulty balancing Depression with anxiety Knee pain Shoulder pain Shortness of breath Surgical History (Updated 03/22/24 @ 08:[address] Gudelia Dominguez DO) History of surgery History of tonsillectomy and adenoidectomy Family History Father Seizures Chiari malformation Lupus Sister PCOS (polycystic ovarian syndrome) Aunt PCOS (polycystic ovarian syndrome) Family history of recurrent miscarriage Mother Family history of recurrent miscarriage 2 miscarriges Social History adopted: No household members: spouse current occupational status: employed current occupation: [employer] pets and animals: Yes (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) pets and animals: cat(s) history of recent travel: Yes ([facility] at [place]) out of state: Yes out of country: No sexually active: Yes Smoking Status: Never smoker alcohol intake: current alcohol intake frequency: holidays/special occasions only details: not while substance use type: does not use diet: other well-balanced diet: daily or most days caffeine: Yes Type: coffee Number of servings: 1 eating out: 1-3 times/week during the past year weight has: decreased > 10 lbs what type of physical activity do you participate in: swimming frequency: 3-4 times per week song/holiness: Jew seatbelt use: always do you feel safe at home: Yes additional social history: - [facility] [employer] History 1 Elective abortions Hx Para 0 Spontaneous abortions Hx # Term Pregnancies Ectopic pregnancies Hx # Pregnancies Multiple births # of living children HPI HPI HPI: MILDRED MICHEL, is a 33 F who presents to the office today for assessment. History provided by the patient. ROS ROS Const Constitutional: Denies fever(s) or lethargy : Denies nipple discharge Skin Skin/Breast: Denies breast pain, breast skin changes or nipple discharge Details: q 3 hours, 5-15 minutes to each side, patient states does not think milk is in, very tearful during appointment because came from pediatric appointment and baby is down in weight, support and reassurance provided, patient would like to latch baby so will assess transfer volume and come up with feeding plan, patient does have history of PCOS, hypothyroidism and infertility, per patient minimal breast changes in , was having nipple pain with latching but is starting to improve, worse to right side Exam Maternal Assessment Breast Assessment Bilateral Breasts: Soft (right breast smaller than left breast ) Nipple Assessment Bilateral Nipples: Everted Areolar Tissue Areolar Tissue: Pliable Assessment Baby Feeding History Is your baby latching onto the breast: Yes Number of Breast Feedings in 24 hours: 8 Minutes per breast: First Breast: 5-15 Minutes per breast: Second Breast: 5-15 Supplements Supplement Type:: Formula Frequency: once Amount: 20 ml Breast Pumping Type of Breast Pump: Zommee Frequency: has not started pumping Goals Breast Feeding Goals: Exclusive Exam Const General: comfortable and no acute distress Orientation: alert and oriented x3 Chest Breast inspection: abnormal inspection of the breast (right breast smaller than left breast ) Breast palpation: normal palpation of the breasts Other: bilateral (more content not included)... Normal [facility] CBC-Complete Blood Cnt No Di ffon 03-23-2024 Erythrocyte distribution width (RBC) [Ratio] 14.3 % Normal 11.6-14.6 [facility] Comment on above: Performed By: #### L 100.0500 ####[facility] [address] [place], [address] Hematocrit (Bld) [Volume fraction] 24.2 % Low 37-47 [facility] Comment on above: Performed By: #### L 100.0500 ####[facility] [address] [place], [address] Hemoglobin (Bld) [Mass/Vol] 8.2 g/dL Low 12.0-15.0 [facility] Comment on above: Performed By: #### L 100.0500 ####[facility] [address] [place], [address] MCH (RBC) [Entitic mass] 29.6 pg Normal 27.0-32.0 [facility] Comment on above: Performed By: #### L 100.0500 ####[facility] [address] [place], [address] MCHC (RBC) [Mass/Vol] 33.9 g/dL Normal 32-36 [facility] Comment on above: Performed By: #### L 100.0500 ####[facility] [address] [place], [address] MCV (RBC) [Entitic vol] 87.4 fL Normal 81-[facility] Comment on above: Performed By: #### L 100.0500 ####[facility] [address] [place], [address] Platelet mean volume (Bld) [Entitic vol] 11.3 fL Normal 6.2-12.0 [facility] Comment on above: Performed By: #### L 100.0500 ####[facility] [address] [place], [address] Platelets (Bld) [#/Vol] 147 10*3/uL Low 150-450 [facility] Comment on above: Performed By: #### L 100.0500 ####[facility] [address] [place], [address] RBC (Bld) [#/Vol] 2.77 10*6/uL Low 4.2-5.4 [facility] Comment on above: Performed By: #### L 100.0500 ####[facility] [address] [place], [address] RDW SD 44.7 fl High 35.1-43.9 [facility] Comment on above: Performed By: #### L 100.0500 ####[facility] [address] [place], [address] WBC (Bld) [#/Vol] 7.4 10*3/uL Normal 4.4-11.0 [facility] Comment on above: Performed By: #### L 100.0500 ####[facility] [address] [place], [address] CBC-Complete Blood Cnt No Di ffon 03-22-2024 Erythrocyte distribution width (RBC) [Ratio] 14.2 % Normal 11.6-14.6 [facility] Comment on above: Order Comment: Comme nts: Day #1Reason for Laboratory Test Performed By: #### L 100.0500 ####[facility] [address] [place], [address] Hematocrit (Bld) [Volume fraction] 26.0 % Low 37-47 [facility] Comment on above: Order Comment: Comme nts: Day #1Reason for Laboratory Test Performed By: #### L 100.0500 ####[facility] [address] [place], [address] Hemoglobin (Bld) [Mass/Vol] 8.7 g/dL Low 12.0-15.0 [facility] Comment on above: Order Comment: Comme nts: Day #1Reason for Laboratory Test Performed By: #### L 100.0500 ####[facility] [address] [place], [address] MCH (RBC) [Entitic mass] 29.2 pg Normal 27.0-32.0 [facility] Comment on above: Order Comment: Comme nts: Day #1Reason for Laboratory Test Performed By: #### L 100.0500 ####[facility] [address] [place], [address] MCHC (RBC) [Mass/Vol] 33.5 g/dL Normal 32-36 [facility] Comment on above: Order Comment: Comme nts: Day #1Reason for Laboratory Test Performed By: #### L 100.0500 ####[facility] [address] [place], [address] MCV (RBC) [Entitic vol] 87.2 fL Normal 81-99 [facility] Comment on above: Order Comment: Comme nts: Day #1Reason for Laboratory Test Performed By: #### L 100.0500 ####[facility] [address] [place], [address] Platelet mean volume (Bld) [Entitic vol] 12.0 fL Normal 6.2-12.0 [facility] Comment on above: Order Comment: Comme nts: Day #1Reason for Laboratory Test Performed By: #### L 100.0500 ####[facility] [address] [place], [address] Platelets (Bld) [#/Vol] 140 10*3/uL Low 150-450 [facility] Comment on above: Order Comment: Comme nts: Day #1Reason for Laboratory Test Performed By: #### L 100.0500 ####[facility] [address] [place], [address] RBC (Bld) [#/Vol] 2.98 10*6/uL Low 4.2-5.4 [facility] Comment on above: Order Comment: Comme nts: Day #1Reason for Laboratory Test Performed By: #### L 100.0500 ####[facility] [address] [place], [address] RDW SD 43.5 fl Normal 35.1-43.9 [facility] Comment on above: Order Comment: Comme nts: Day #1Reason for Laboratory Test Performed By: #### L 100.0500 ####[facility] [address] [place], [address] WBC (Bld) [#/Vol] 7.5 10*3/uL Normal 4.4-11.0 [facility] Comment on above: Order Comment: Comme nts: Day #1Reason for Laboratory Test Performed By: #### L 100.0500 ####[facility] [address] [place], [address] Discharge Instructionon 03-04 Discharge Instruction [facility] Medical Records Department [address] [place] [address] Instructions for Home/Discharge Instructions 03/21/24 0133 MR#: [id number] Acct: [id number] Name: MILDRED MICHEL Rep #: [id number] : 1990 33 From: Gudelia Dominguez DO PCP: KERRY Ruiz Status:ADM IN Discharge Instructions Diet Discharge Diet: No restrictions Activity Discharge Activity: May Not Drive (for 2 weeks or while taking narcotic pain medications.), May Shower and May Take a Tub Bath (in 7 days.) May resume sexual activity in: 4-6 weeks Weight Bearing Status: Full weight bearing Lifting Restrictions: 20 pounds Dressing / Incision Call your doctor if your incision/area has: Continuous Slow Oozing, Sudden Increased Bleeding, Increased Pain/ Swelling, Increased Redness and Foul Smelling Discharge Call your doctor if you observe: Fever of 101 or Higher and Using more than 1 pad per hour Suture Line Care: Avoid Pulling/Pushing and Avoid Pinching/Bending Cleanse incision/area with: Soap Water and Keep Dressing Clean Dry Follow Up Care Please Follow Up With: Gudelia Dominguez DO When: Call [phone] to make an appointment for an incision check in 1-2 weeks. Test Results: Test results from this visit will be discussed in further detail at your follow-up appointment, if applicable. Discharge Plan Admission Admit Date/Time: 03/20/24 10:55 Attending Provider: Gudelia Dominguez Primary Care Provider: Bushra Collins Discharge Orders/Prescriptions Prescriptions: No Action sertraline [Zoloft] 100 mg tablet 100 mg PO DAILY PNV-DHA 27 mg iron-1 mg -300 mg capsule 1 cap PO DAILY metformin 500 mg tablet 500 mg PO DAILY albuterol sulfate 90 mcg/actuation HFA aerosol inhaler 2 puff inhalation Q6H PRN (Reason: asthma) levothyroxine [Synthroid] 50 mcg tablet 50 mcg PO DAILY Qty: 30 0RF Referrals / Follow Up: Bushra Collins PA [Primary Care Provider] - 03/21/24 0133 Gudelia Dominguez DO CC: KERRY Ruiz Signed Normal [facility] Operative Reporton 4 Operative Report [facility] Medical Records Department [address] [place] [address] Operative Report 03/21/24 0125 MR#: [id number] Acct: [id number] Name: MILDRED MICHEL Rep #: [id number] : 1990 33 From: Gudelia Dominguez DO PCP: KERRY Ruiz Status:ADM IN Location: AR549-7 Assessment Plan (1) Arrested labor: (2) intolerance to labor, delivered, current hospitalization: (3) Active labor: (4) Multicystic dysplastic kidney, , affecting care of mother, antepartum: QUALIFIERS: Fetus number: single or unspecified fetus Qualified Code(s): O35.EXX0 - Maternal care for other (suspected) abnormality and damage, genitourinary anomalies, not applicable or unspecified COMMENT: left kidney only. growth us q 4 weeks-[facility] up at [facility] (5) Obesity affecting : QUALIFIERS: Trimester: second trimester Obesity type affecting : unspecified obesity Qualified Code(s): O99.212 - Obesity complicating , second trimester COMMENT: BMI 42-A1C nl with NOB labs NST weekly at 34 weeks (6) Infertility: COMMENT: RGI pt/clomid (7) Asthma: (8) Hypothyroidism: QUALIFIERS: Hypothyroidism type: unspecified Qualified Code(s): E03.9 - Hypothyroidism, unspecified COMMENT: thyroid labs q trimester (9) Varicose vein of leg: QUALIFIERS: Varicose vein complication: unspecified Laterality: unspecified laterality Qualified Code(s): I83.90 - Asymptomatic varicose veins of unspecified lower extremity COMMENT: Right leg above knee (10) Supervision of high-risk : QUALIFIERS: Trimester: second trimester Qualified Code(s): O09.92 - Supervision of high risk , unspecified, second trimester COMMENT: PRR , DICK 03/28/24, surprise Manjinder, father passed- 03/20. (11) : QUALIFIERS: Weeks of gestation: 38 weeks Qualified Code(s): Z3A.38 - 38 weeks gestation of COMMENT: GBS neg, NIPT- low risk anatomy reviewed. afp screen negative. carrier testing done with RGI *delivery appropriate here, multicystic kidney, plan follow up after (12) PCOS (polycystic ovarian syndrome): COMMENT: on metformin (13) Cephalgia: (14) Depression with anxiety: COMMENT: zoloft-stable (15) History of DVT of lower extremity: COMMENT: related to accident recovery/decreased mobility, ordered thrombophilia panel- negative. discussed possible IOL 39-40. plan post prophylactic anticoagulation for 6 weeks Maternal Data Information DICK Calculator Estimated Delivery Date Method Current WG Current Estimate 03/28/24 LMP (Certain) 39w 0d Final DICK: 03/28/24 Final DICK Source: LMP [place] Doctor Who Attended Delivery: Shailesh Jerome Details Operative Information Date of Procedure: 03/21/24 Pre-Operative Diagnosis: 33 y/o @ 39 weeks 0 days, labor arrest, intolerance to labor Post-Operative Diagnosis: 33 y/o @ 39 weeks 0 days, labor arrest, intolerance to labor Classification: RADHA Procedure Type: low transverse Type of Anesthesia: Epidural Anesthesiologist: Felix Shipley Antibiotic Given: Ancef 2 grams IV x1, Ancef 3 grams IV x1 and Zithromax 500 mg/5 mL X1 Drain: Resendez to straight drain Estimated Blood Loss: 1000cc Procedure Start Time: 00:49 Procedure Stop Time: 01:33 Time of Delivery: 00:56 Findings Description of Procedure: The patient was admitted to L D for active labor and stalled at 7 cm for 7 hours. Pitocin was given intermittently after that, however there were signs of intolerance to labor as displayed on the monitor with multiple episodes of prolonged decelerations that seemed to coincide with more frequent contractions. She reached completely dilated and pushed for over 2 hours with no decent of the station. The decision was made to proceed with a primary section Procedure: The patient was brought to the operating room and spinal anesthesia was found to be adequate. She was prepped and draped in the normal sterile fashion and was placed in a dorsal supine position with a leftward tilt. Pfannenstiel skin incision was made with a scalpel and carried through to the underlying layers. The fascia was nicked in the midline and extended laterally using Zepeda scissors. The anterior aspect of the fascia was grasped with Monalisa clamps and the underlying rectus muscles dissected off using the Metzenbaum scissors. The inferior aspect the fascia was also grasped with Monalisa clamps and the underlying rectus muscle dissected off with the Metzenbaum scissors. The rectus muscles were in the midline. Peritoneum was entered sharply. The uterus was identified and a bladder blade was inserted into the abdomen. Bladder flap was created off the uterus using Metzenbaum scissors. A transverse incision was made with a scalpel and extended laterally manu (more content not included)... Normal [facility] CBC W/Diff, Automatedon 03-04 Absolute Lymph 1.05 X10 3/uL Normal 0.83-4.51 [facility] Comment on above: Performed By: #### B LATRICE, L100.0100 ####[facility] [address] [place], [address] Absolute Neut 8.6 X10 3/uL High 2.0-7.7 [facility] Comment on above: Performed By: #### B LATRICE, L100.0100 ####[facility] [address] [place], [address] Basophils/100 WBC (Bld) 0.2 % Normal 0-1 [facility] Comment on above: Performed By: #### B LATRICE, L100.0100 ####[facility] [address] [place], [address] Eosinophils/100 WBC (Bld) 0.0 % Normal 0-5 [facility] Comment on above: Performed By: #### Shashank POLLARD, L100.0100 ####[facility] [address] [place], [address] Erythrocyte distribution width (RBC) [Ratio] 13.4 % Normal 11.6-14.6 [facility] Comment on above: Performed By: #### Shashank POLLARD, L100.0100 ####[facility] [address] [place], [address] Hematocrit (Bld) [Volume fraction] 38.4 % Normal 37-47 [facility] Comment on above: Performed By: #### Shashank POLLARD, L100.0100 ####[facility] [address] [place], [address] Hemoglobin (Bld) [Mass/Vol] 13.2 g/dL Normal 12.0-15.0 [facility] Comment on above: Performed By: #### Shashank POLLARD, L100.0100 ####[facility] [address] [place], [address] IG% 0.500 Normal 0.0-0.9 [facility] Comment on above: Result Comment: IG% - Immature Granulocytes (promyelocytes, myelocytes and metamyelocytes) > 1% indicates that a LEFT SHIFT is Present. Performed By: #### Shashank POLLARD, L100.0100 ####[facility] [address] [place], [address] Lymphocytes/100 WBC (Bld) 10.4 % Low 19-41 [facility] Comment on above: Performed By: #### Shashank POLLARD, L100.0100 ####[facility] [address] [place], [address] MCH (RBC) [Entitic mass] 28.9 pg Normal 27.0-32.0 [facility] Comment on above: Performed By: #### Shashank POLLARD, L100.0100 ####[facility] [address] [place], [address] MCHC (RBC) [Mass/Vol] 34.4 g/dL Normal 32-36 [facility] Comment on above: Performed By: #### Shashank POLLARD, L100.0100 ####[facility] [address] [place], [address] MCV (RBC) [Entitic vol] 84.0 fL Normal 81-99 [facility] Comment on above: Performed By: #### Shashank POLLARD, L100.0100 ####[facility] [address] [place], [address] Monocytes/100 WBC (Bld) 4.0 % Normal 0-[facility] Comment on above: Performed By: #### Shashank POLLARD, L100.0100 ####[facility] [address] [place], [address] Neutrophils/100 WBC (Bld) 84.9 % High 47-70 [facility] Comment on above: Performed By: #### Shashank POLLARD, L100.0100 ####[facility] [address] [place], [address] Nucleated RBC (Bld) [#/Vol] 0 10*3/uL Normal 0-5 [facility] Comment on above: Performed By: #### Shashank POLLARD, L100.0100 ####[facility] [address] [place], [address] Platelet mean volume (Bld) [Entitic vol] 12.1 fL High 6.2-12.0 [facility] Comment on above: Performed By: #### Shashank POLLARD, L100.0100 ####[facility] [address] [place], [address] Platelets (Bld) [#/Vol] 173 10*3/uL Normal 150-450 [facility] Comment on above: Performed By: #### Shashank TS, L100.0100 ####[facility] [address] [place], [address] RBC (Bld) [#/Vol] 4.57 10*6/uL Normal 4.2-5.4 [facility] Comment on above: Performed By: #### Shashank POLLARD, L100.0100 ####[facility] [address] [place], [address] RDW SD 41.1 fl Normal 35.1-43.9 [facility] Comment on above: Performed By: #### Shashank POLLARD, L100.0100 ####[facility] [address] [place], [address] WBC (Bld) [#/Vol] 10.1 10*3/uL Normal 4.4-11.0 [facility] Comment on above: Performed By: #### Shashank POLLARD, L100.0100 ####[facility] [address] [place], [address] H AND P Exam - OB/GYNon 07- H&P Exam - TRADES HELPER [facility] Medical Records Department [address] [place] [address] H P Exam - TRADES HELPER 03/20/24 1203 MR#: [id number] Acct: [id number] Name: MILDRED MICHEL Rep #: [id number] : 1990 33 From: Khoi King CNM PCP: KERRY Ruiz Status:ADM IN Location: [id number] HPI - General General Date of Admission: 03/20/24 Date of Service: 03/20/24 HPI Narrative MILDRED MICHEL, is a 33 F 38.6 weeks who presents to unit in active labor. admission orders given Maternal Data Information DICK Calculator Estimated Delivery Date Method Current WG Current Estimate 03/28/24 LMP (Certain) 38w 6d Final DICK: 03/28/24 Final DICK Source: US >20 weeks Gestational age: 38.6 PFSH PFSH Medical History (Updated 03/20/24 @ 12:06 by Khoi King CNM) Family history of hearing loss at age younger than 7 years Thyroid disorder DVT (deep venous thrombosis) Superficial varicosities Headache Cephalgia Bleeding in early Seasonal allergies History of DVT of lower extremity Anovulation HISTORY OF PLANTERS WART REMOVAL NECK AND BACK PAIN Difficulty balancing Depression with anxiety Knee pain Shoulder pain Shortness of breath Home Medications ???Medication ???Instructions ???Recorded ???Last Taken ???Type sertraline 100 mg tablet (Zoloft) 100 mg PO DAILY 02/14/22 03/19/24 20:00 History 100 mg albuterol sulfate 90 mcg/actuation 2 puff inhalation Q6H PRN asthma 08/15/23 Unknown History aerosol inhaler metformin 500 mg tablet 500 mg PO DAILY 08/15/23 03/19/24 18:00 History 500 mg multivitamin no.47-iron fum 27 1 cap PO DAILY 08/15/23 03/19/24 08:00 History mg-folate no.1 1 mg-dha 300 mg capsule (PNV-DHA) levothyroxine 50 mcg tablet 50 mcg PO DAILY #30 tabs 01/09/24 03/19/24 06:00 Rx (Synthroid) 50 mcg Allergy/AdvReac Type Severity Reaction Status Date / Time bacitracin (From Neosporin Allergy Intermediate Rash Verified 03/20/24 10:48 ([id number]-[id number])) neomycin (From Neosporin Allergy Intermediate Rash Verified 03/20/24 10:48 (frx-sqw-ygvga)) polymyxin B (From Neosporin Allergy Intermediate Rash Verified 03/20/24 10:48 (dxj-ajb-mfzgn)) latex Allergy Rash Verified 03/20/24 10:48 banana AdvReac Nausea Verified 03/20/24 10:48 Family History Father Seizures Chiari malformation Lupus Sister PCOS (polycystic ovarian syndrome) Aunt PCOS (polycystic ovarian syndrome) Family history of recurrent miscarriage Mother Family history of recurrent miscarriage 2 miscarriges Surgical History (Updated 03/20/24 @ 11:45 by Natalia Rapp) History of surgery History of tonsillectomy and adenoidectomy Social History adopted: No household members: spouse current occupational status: employed current occupation: [employer] pets and animals: Yes (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) pets and animals: cat(s) history of recent travel: Yes (FLA at [place]) out of state: Yes out of country: No sexually active: Yes Smoking Status: Never smoker alcohol intake: current alcohol intake frequency: holidays/special occasions only details: not while substance use type: does not use diet: other well-balanced diet: daily or most days caffeine: Yes Type: coffee Number of servings: 1 eating out: 1-3 times/week during the past year weight has: decreased > 10 lbs what type of physical activity do you participate in: swimming frequency: 3-4 times per week song/holiness: Jew seatbelt use: always do you feel safe at home: Yes additional social history: - [employer] History 1 Elective abortions Hx Para 0 Spontaneous abortions Hx # Term Pregnancies Ectopic pregnancies Hx # Pregnancies Multiple births # of living children Visit Details Expected Delivery Route/Plan Labor Preferences- CB/BF classes: yes labor support person: Manjinder labor intervention preferences: [] pain management options preferred: epidural cut cord/dad catch: maybe : yes PP control planned: discussed discussed possible routes of delivery and associated risks: [] special requests: [] Plans Covid status: [] Flu vaccine: declined Tdap vaccine: [ Rhogam: NA LARC form signed: yes Problem list reviewed and updated with the most current plan of care details and appropriate orders placed. Relevant counseling for the gestational age provided. Continue routine care and follow up unless otherwise noted in visit notes/problem list details OB Flowsheet Initial Weight: 241 lb Date -???-???-???-???-???-? ??-???-???-???-???-??? -???- EGA Weight BP Urine Prot -???-???-???-???-???-? ??-???-? (more content not included)... Normal [facility] L509.8000on 03-20-2024 Syphilis Abs Non-Reactive Normal [facility] Comment on above: Performed By: #### L 509.8000 ####[facility] [address] [place], [place], [address] Type AND Screenon 03-20-2024 ABO and Rh group Nom (Bld) Blood group B Rh(D) positive Normal [facility] Comment on above: Order Comment: Labor Performed By: #### B TS, L100.0100 ####[facility] [address] [place], [place], [address] Transcription Typist Office Visit Reporton 03-19-2024 Transcription Typist Office Visit Report [facility] [address] [place], [place] [address] OFFICE VISIT Date of Service: 03/19/24 MR#: [id number] Acct: [id number] Name: MILDRED MICHEL Rep #: [id number] : 1990 Provider: CARA Cruz ams Age/Sex: 33/F Location: [facility] [place] Status: Signed Intake Vital Signs 03/14/24 08:28 03/19/24 08:16 03/19/24 11:50 Height 5 ft 2 in 5 ft 2 in 5 ft 2 in Weight: 252 lb BMI 46.0 BP 122/85 H Intake Visit Reasons: 38wOB, contractions, father just Banana Loader Required: No Is patient in pain?: No Allergies bacitracin (From Neosporin (rpq-ebu-idtaq)) Allergy (Intermediate, Verified 03/19/24 11:42) Rash neomycin (From Neosporin (ufb-kbb-lmjnv)) Allergy (Intermediate, Verified 03/19/24 11:42) Rash polymyxin B (From Neosporin (tjn-fvo-efqtk)) Allergy (Intermediate, Verified 03/19/24 11:42) Rash latex Allergy (Verified 03/19/24 11:42) Rash banana Adverse Reaction (Verified 03/19/24 11:42) Nausea Medications ???Medication ???Instructions ???Recorded ???Confirmed ???Type sertraline 100 mg tablet (Zoloft) 100 mg PO DAILY 02/14/22 03/19/24 History albuterol sulfate 90 mcg/actuation 2 puff inhalation Q6H PRN 08/15/23 03/19/24 History aerosol inhaler metformin 500 mg tablet 500 mg PO TID 08/15/23 03/19/24 History multivitamin no.47-iron fum 27 cap PO 08/15/23 03/19/24 History mg-folate no.1 1 mg-dha 300 mg capsule (PNV-DHA) ondansetron 4 mg disintegrating 4 mg PO Q6H #90 tabs 09/19/23 03/19/24 Rx tablet levothyroxine 50 mcg tablet 50 mcg PO DAILY #30 tabs 01/09/24 03/19/24 Rx (Synthroid) Last Menstrual Period: 06/22/23 Zika: Zika virus screening: Negative : No PFSH PFSH Medical History Cephalgia Bleeding in early Seasonal allergies History of DVT of lower extremity Anovulation HISTORY OF PLANTERS WART REMOVAL NECK AND BACK PAIN Difficulty balancing Depression with anxiety Knee pain Shoulder pain Shortness of breath Surgical History History of tonsillectomy and adenoidectomy Family History Father Seizures Chiari malformation Lupus Sister PCOS (polycystic ovarian syndrome) Aunt PCOS (polycystic ovarian syndrome) Family history of recurrent miscarriage Mother Family history of recurrent miscarriage 2 miscarriges Social History adopted: No household members: spouse current occupational status: employed current occupation: [employer] pets and animals: Yes (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) pets and animals: cat(s) history of recent travel: Yes (FLA at [place]) out of state: Yes out of country: No sexually active: Yes Smoking Status: Never smoker alcohol intake: current alcohol intake frequency: holidays/special occasions only details: not while substance use type: does not use diet: other well-balanced diet: daily or most days caffeine: Yes Type: coffee Number of servings: 1 eating out: 1-3 times/week during the past year weight has: decreased > 10 lbs what type of physical activity do you participate in: swimming frequency: 3-4 times per week song/holiness: Jew seatbelt use: always do you feel safe at home: Yes additional social history: - [employer] History 1 Elective abortions Hx Para 0 Spontaneous abortions Hx # Term Pregnancies Ectopic pregnancies Hx # Pregnancies Multiple births # of living children HPI 38wOB, contractions, father just Details: MILDRED MICHEL is a 33 year old who presents for routine OB visit. OB Visit DICK Calculator Estimated Delivery Date Method Current WG Current Estimate 03/28/24 LMP (Certain) 38w 5d Expected Delivery Route/Plan Labor Preferences- CB/BF classes: yes labor support person: Manjinder labor intervention preferences: [] pain management options preferred: epidural cut cord/dad catch: maybe : yes PP control planned: discussed discussed possible routes of delivery and associated risks: [] special requests: [] Specific Issue/Plans Covid status: [] Flu vaccine: declined Tdap vaccine: [ Rhogam: NA LARC form signed: yes Problem list reviewed and updated with the most current plan of care details and appropriate orders placed. Relevant counseling for the gestational age provided. Continue routine care and follow up unless otherwise noted in visit notes/problem list details Initial Weight: 241 lb Date -???-???-???-???-???-? ??-???-???-???-???-??? -???- EGA Weight BP Urine Prot -? (more content not included)... Normal [facility] CBC W/Diff, Automatedon 03-04 Absolute Lymph 1.97 X10 3/uL Normal 0.83-4.51 [facility] Comment on above: Performed By: #### L 100.0100, L500.4050 #### [facility] [address] [place], [address] Absolute Neut 5.1 X10 3/uL Normal 2.0-7.7 [facility] Comment on above: Performed By: #### L 100.0100, L500.4050 #### [facility] [address] [place], [address] Basophils/100 WBC (Bld) 0.5 % Normal 0-1 [facility] Comment on above: Performed By: #### L 100.0100, L500.4050 #### [facility] [address] [place], [address] Eosinophils/100 WBC (Bld) 1.0 % Normal 0-5 [facility] Comment on above: Performed By: #### L 100.0100, L500.4050 #### [facility] [address] [place], [address] Erythrocyte distribution width (RBC) [Ratio] 13.4 % Normal 11.6-14.6 [facility] Comment on above: Performed By: #### L 100.0100, L500.4050 #### [facility] [address] [place], [address] Hematocrit (Bld) [Volume fraction] 38.2 % Normal 37-47 [facility] Comment on above: Performed By: #### L 100.0100, L500.4050 #### [facility] [address] [place], [address] Hemoglobin (Bld) [Mass/Vol] 13.4 g/dL Normal 12.0-15.0 [facility] Comment on above: Performed By: #### L 100.0100, L500.4050 #### [facility] [address] [place], [address] IG% 0.400 Normal 0.0-0.9 [facility] Comment on above: Result Comment: IG% - Immature Granulocytes (promyelocytes, myelocytes and metamyelocytes) > 1% indicates that a LEFT SHIFT is Present. Performed By: #### L 100.0100, L500.4050 #### [facility] [address] [place], [address] Lymphocytes/100 WBC (Bld) 25.1 % Normal 19-41 [facility] Comment on above: Performed By: #### L 100.0100, L500.4050 #### [facility] [address] [place], [address] MCH (RBC) [Entitic mass] 29.1 pg Normal 27.0-32.0 [facility] Comment on above: Performed By: #### L 100.0100, L500.4050 #### [facility] [address] [place], [address] MCHC (RBC) [Mass/Vol] 35.1 g/dL Normal 32-36 [facility] Comment on above: Performed By: #### L 100.0100, L500.4050 #### [facility] [address] [place], [address] MCV (RBC) [Entitic vol] 83.0 fL Normal 81-99 [facility] Comment on above: Performed By: #### L 100.0100, L500.4050 #### [facility] [address] [place], [address] Monocytes/100 WBC (Bld) 7.6 % Normal 0-10 [facility] Comment on above: Performed By: #### L 100.0100, L500.4050 #### [facility] [address] [place], [address] Neutrophils/100 WBC (Bld) 65.4 % Normal 47-70 [facility] Comment on above: Performed By: #### L 100.0100, L500.4050 #### [facility] [address] [place], [address] Nucleated RBC (Bld) [#/Vol] 0 10*3/uL Normal 0-5 [facility] Comment on above: Performed By: #### L 100.0100, L500.4050 #### [facility] [address] [place], [address] Platelet mean volume (Bld) [Entitic vol] 11.7 fL Normal 6.2-12.0 [facility] Comment on above: Performed By: #### L 100.0100, L500.4050 #### [facility] [address] [place], [address] Platelets (Bld) [#/Vol] 188 10*3/uL Normal 150-450 [facility] Comment on above: Performed By: #### L 100.0100, L500.4050 #### [facility] [address] [place], [address] RBC (Bld) [#/Vol] 4.60 10*6/uL Normal 4.2-5.4 [facility] Comment on above: Performed By: #### L 100.0100, L500.4050 #### [facility] [address] [place], [address] RDW SD 40.0 fl Normal 35.1-43.9 [facility] Comment on above: Performed By: #### L 100.0100, L500.4050 #### [facility] [address] [place], [address] WBC (Bld) [#/Vol] 7.9 10*3/uL Normal 4.4-11.0 [facility] Comment on above: Performed By: #### L 100.0100, L500.4050 #### [facility] [address] [place], [address] Comprehensive Metabolic Prof ilon 03-14-2024 Albumin [Mass/Vol] 2.7 g/dL Low 3.2-5.0 [facility] Comment on above: Performed By: #### L 100.0100, L500.4050 #### [facility] [address] [place], [address] Albumin/Globulin [Mass ratio] 0.7 {ratio} Low 0.9-2.4 [facility] Comment on above: Performed By: #### L 100.0100, L500.4050 #### [facility] [address] [place], [address] ALK P 138 U/L High 45-117 [facility] Comment on above: Performed By: #### L 100.0100, L500.4050 #### [facility] [address] [place], [address] ALT [Catalytic activity/Vol] 15 U/L Normal 13-56 [facility] Comment on above: Performed By: #### L 100.0100, L500.4050 #### [facility] [address] [place], [address] AST [Catalytic activity/Vol] 10 U/L Low 15-37 [facility] Comment on above: Performed By: #### L 100.0100, L500.4050 #### [facility] [address] [place], [address] Bilirubin [Mass/Vol] 0.20 mg/dL Normal 0.20-1.00 [facility] [facility] Comment on above: Result Comment: For patients on eltrombopag therapy, use of Dimension [place] TBIL is not recommended. Performed By: #### L 100.0100, L500.4050 #### [facility] [address] [place], [address] BUN/CRE 19.9 RATIO Normal 10-20 [facility] Comment on above: Performed By: #### L 100.0100, L500.4050 #### [facility] [address] [place], [address] CA,Total 9.5 mg/dL Normal 8.5-10.1 [facility] Comment on above: Performed By: #### L 100.0100, L500.4050 #### [facility] [address] [place], [address] Chloride [Moles/Vol] 110 mmol/L High 98-107 [facility] Comment on above: Performed By: #### L 100.0100, L500.4050 #### [facility] [address] [place], [address] CO2 [Moles/Vol] 20.0 mmol/L Low 21.0-32.0 [facility] Comment on above: Performed By: #### L 100.0100, L500.4050 #### [facility] [address] [place], [address] Creatinine [Mass/Vol] 0.70 mg/dL Normal 0.55-1.02 [facility] Comment on above: Result Comment: The validity of the calculated GFR GFRAA in patients over 70 years has not been determined. Clinical correlation is essential. Performed By: #### L 100.0100, L500.4050 #### [facility] [address] [place], [address] EST GFR - AA 122 mL/min Normal >60 [facility] Comment on above: Result Comment: Afri can [place] GFR Calc Performed By: #### L 100.0100, L500.4050 #### [facility] [address] [place], [address] GAP 7 Normal 5-15 [facility] Comment on above: Performed By: #### L 100.0100, L500.4050 #### [facility] [address] [place], [address] GFR/1.73 sq M.predicted among non-blacks MDRD (S/P/Bld) [Vol rate/Area] 101 mL/min/{1.73_m2} Normal >60 [facility] Comment on above: Result Comment: Non- GFR Calc Performed By: #### L 100.0100, L500.4050 #### [facility] [address] [place], [address] Globulin (S) [Mass/Vol] 3.7 g/dL [facility] 2[facility]2-4.2 [facility] Comment on above: Performed By: #### L 100.0100, L500.4050 #### [facility] [address] [place], [address] Glucose [Mass/Vol] 85 mg/dL Normal 74-106 [facility] Comment on above: Performed By: #### L 100.0100, L500.4050 #### [facility] [address] [place], [address] Potassium [Moles/Vol] 4.0 mmol/L Normal 3.5-5.1 [facility] Comment on above: Performed By: #### L 100.0100, L500.4050 #### [facility] [address] [place], [address] Sodium [Moles/Vol] 137 mmol/L Normal 136-145 [facility] Comment on above: Performed By: #### L 100.0100, L500.4050 #### [facility] [address] [place], [address] T PROT 6.4 g/dL Normal 6.4-8.2 [facility] Comment on above: Performed By: #### L 100.0100, L500.4050 #### [facility] [address] [place], [address] Urea nitrogen [Mass/Vol] 14 mg/dL Normal 7-18 [facility] Comment on above: Performed By: #### L 100.0100, L500.4050 #### [facility] [address] [place], [place], [address] Transcription Typist Office Visit Reporton 03-14-2024 Transcription Typist Office Visit Report [facility] [address] [place] [address] OFFICE VISIT Date of Service: 03/14/24 MR#: [id number] Acct: [id number] Name: MILDRED MICHEL Rep #: [id number] : 1990 Provider: CARA Cruz ams Age/Sex: 33/F Location: [facility] [place] Status: Signed Intake Vital Signs 01/23/24 09:41 03/13/24 14:23 03/14/24 08:26 03/14/24 08:28 Height 5 ft 3 in 5 ft 2 in 5 ft 2 in 5 ft 2 in Weight: 253 lb 4 oz BMI 46.3 BP 115/76 Intake Visit Reasons: [facility] US @ 7:45, 38 weeks/NST Banana Loader Required: No Is patient in pain?: No Allergies bacitracin (From Neosporin (xyz-pmp-oxrlr)) Allergy (Intermediate, Verified 03/14/24 08:27) Rash neomycin (From Neosporin (abf-fac-hxdau)) Allergy (Intermediate, Verified 03/14/24 08:27) Rash polymyxin B (From Neosporin (yyp-ggo-viwiy)) Allergy (Intermediate, Verified 03/14/24 08:27) Rash latex Allergy (Verified 03/14/24 08:27) Rash banana Adverse Reaction (Verified 03/14/24 08:27) Nausea Medications ???Medication ???Instructions ???Recorded ???Confirmed ???Type sertraline 100 mg tablet (Zoloft) 100 mg PO DAILY 02/14/22 03/14/24 History albuterol sulfate 90 mcg/actuation 2 puff inhalation Q6H PRN 08/15/23 03/14/24 History aerosol inhaler metformin 500 mg tablet 500 mg PO TID 08/15/23 03/14/24 History multivitamin no.47-iron fum 27 cap PO 08/15/23 03/14/24 History mg-folate no.1 1 mg-dha 300 mg capsule (PNV-DHA) ondansetron 4 mg disintegrating 4 mg PO Q6H #90 tabs 09/19/23 03/14/24 Rx tablet levothyroxine 50 mcg tablet 50 mcg PO DAILY #30 tabs 01/09/24 03/14/24 Rx (Synthroid) Last Menstrual Period: 06/22/23 Current gender identity: female Zika: Zika virus screening: Negative : No Have you fallen in the past year?: No PFSH PFSH Medical History Cephalgia Bleeding in early Seasonal allergies History of DVT of lower extremity Anovulation HISTORY OF PLANTERS WART REMOVAL NECK AND BACK PAIN Difficulty balancing Depression with anxiety Knee pain Shoulder pain Shortness of breath Surgical History History of tonsillectomy and adenoidectomy Family History Father Seizures Chiari malformation Lupus Sister PCOS (polycystic ovarian syndrome) Aunt PCOS (polycystic ovarian syndrome) Family history of recurrent miscarriage Mother Family history of recurrent miscarriage 2 miscarriges Social History adopted: No household members: spouse current occupational status: employed current occupation: [employer] pets and animals: Yes (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) pets and animals: cat(s) history of recent travel: Yes (FL[place] at [place]) out of state: Yes out of country: No sexually active: Yes current gender identity: female Smoking Status: Never smoker alcohol intake: current alcohol intake frequency: holidays/special occasions only details: not while substance use type: does not use diet: other well-balanced diet: daily or most days caffeine: Yes Type: coffee Number of servings: 1 eating out: 1-3 times/week during the past year weight has: decreased > 10 lbs what type of physical activity do you participate in: swimming frequency: 3-4 times per week song/holiness: Jew seatbelt use: always do you feel safe at home: Yes additional social history: - [employer] History 1 Elective abortions Hx Para 0 Spontaneous abortions Hx # Term Pregnancies Ectopic pregnancies Hx # Pregnancies Multiple births # of living children HPI [facility] US @ 7:45, 38 weeks/NST Details: MILDRED MICHEL is a 33 year old who presents for routine OB visit. OB Visit DICK Calculator Estimated Delivery Date Method Current WG Current Estimate 03/28/24 LMP (Certain) 38w 0d Expected Delivery Route/Plan Labor Preferences- CB/BF classes: yes labor support person: Manjinder labor intervention preferences: [] pain management options preferred: epidural cut cord/dad catch: maybe : yes PP control planned: discussed discussed possible routes of delivery and associated risks: [] special requests: [] Specific Issue/Plans Covid status: [] Flu vaccine: declined Tdap vaccine: [ Rhogam: NA LARC form signed: yes Problem list reviewed and updated with the most current plan of care details and appropriate orders placed. Relevant counseling for the gestational age provided. Continue routine care and follow up unless otherwise noted in visit notes/problem list details Initial Weight: 241 lb (more content not included)... Normal [facility] Protein+Creatinine Ratio,Uri neon 03-14-2024 PROT:CRE RATIO 246 mg/g CRE High 0-200 [facility] Comment on above: Performed By: #### L 100.0100, L500.4050 #### [facility] [address] [place], [address] Protein (U) [Mass/Vol] 22.7 mg/dL High <11.[address] [facility] Comment on above: Performed By: #### L 100.0100, L500.4050 #### [facility] [address] [place], [address] UR CREAT 92.40 mg/dL Normal NO RANGE EST. [facility] Comment on above: Performed By: #### L 100.0100, L500.4050 #### [facility] [address] [place], [address] CNPNon 03-13-2024 CNPN Telephone (FAMPWS) MILDRED MICHEL ([id number]) 1990 F Date Time Provider Department 03/13/24 Bushra COLLINS During your visit today, we recorded the following information about you: Violette Ngo RN 03/13/2024 1:56 PM Signed Patient calling for recommendation for symptoms of migraine headache x 4 days and feeling warm and shaky She was seen @ [facility] on 03/11 and says she was not treated due to being 38 weeks . She says she tried to call OB office today and is waiting for call back. While on phone with patient she received call back. She says OB advised ER evaluation and she is @ [facility] at this time. Violette Ngo RN Allergies As of Date: 03/13/2024 Noted Allergy Reaction BANANA 05/19/2016 8 - GI Upset LATEX 05/19/2016 2 - Rash Date Reviewed: 12/04/2023 Reviewed by: Daja Alfaro LPN - Fully Assessed Reason for Visit: Patient Question [5505] Prescriptions as of 03/13/2024 - sertraline (ZOLOFT) 100 mg tablet Take 1 tablet by mouth once daily. - ergocalciferol 50,000 unit capsule (VITAMIN D2, DRISDOL) Take 1 capsule by mouth one time a week. - levothyroxine (SYNTHROID) 25 mcg tablet Take 1 tablet by mouth in the morning; Take every morning 1 hour before food. - metFORMIN ER (GLUCOPHAGE XR) 500 mg 24 hr tablet TAKE 1 TABLET BY MOUTH ONCE DAILY after dinner for 1 week, then 1 tablet after breakfast and 1 tablet after dinner for 1 week then 1 tablet after breakfast and 2 tablets after dinner - omeprazole (PRILOSEC) 20 mg capsule Take 1 capsule by mouth daily before breakfast. 1/2 hr before meal. - triamcinolone acetonide (KENALOG) 0.1 % cream Apply 1 application to affected area three times daily. Apply sparingly to area for rash/itching. - 25/iron fum/folic/dha (-1 ORAL) Take by mouth. - medroxyPROGESTERone (PROVERA, CYCRIN) 10 mg tablet Take 10 mg by mouth once daily. - fluticasone (FLONASE) 50 mcg/actuation nasal spray Use 2 Sprays in each nostril once daily. Rinse mouth after use. - albuterol HFA (VENTOLIN HFA) 90 mcg/actuation inhaler Inhale 2 Puffs as instructed every 4 hours as needed for Wheezing/Shortness of Breath. Problem List As Of Date 03/13/2024 Noted Resolved Adjustment reaction with anxiety and depression*06/08/2016 Passive suicidal ideations [R45.851] 06/08/2016 ABHILASH (generalized anxiety disorder) [F41.1] 09/04/2015 Insomnia [G47.00] 09/04/2015 Obesity, Class III, BMI >= 40 [E66.01] 06/19/2019 Left knee pain [M25.562] 08/26/2019 Right knee pain [M25.561] 08/26/2019 Chronic left hip pain [M25.552, G89.29] 09/14/2020 Vitamin D deficiency [E55.9] 02/03/2023 Female infertility associated with anovulation *06/02/2023 PCOS (polycystic ovarian syndrome) [E28.2] 06/02/2023 Encounter Status:Closed by VIOLETTE NGO on 03/13/24 Normal [facility] Emergency Department Summary on 03-13-2024 Emergency Department Summary [facility] Medical Records Department [address] [place] [address] Emergency Department Summary 03/13/24 MR#: [id number] Acct: [id number] Name: MILDRED MICHEL Rep #: [id number] : 1990 33 From: Rey Feng MD PCP: KERRY Ruiz Status:DEP ER Location: ED HPI History of Present Illness Chief Complaint: Headache Informant: patient and spouse/S.O. Onset/Context/Timing Onset: Days Context: Gradual Timing: Continuous Quality -Headache: Positive for Similar Prior Headaches and Tightness Current Severity: Moderate Maximum Severity: Moderate Associated Symptoms/Injury Associated Symptoms: Negative for Fever, Nausea, Vomiting, Sore Throat, Sinus Pressure, Numbness, Tingling, Preceding Aura, Visual Changes, Blurred Vision, Photophobia or Visual Loss Injury - LYON: Negative for Direct Trauma, Fall or Assault Narrative Narrative: 33-year-old female currently 30 weeks . With a history of migraine headaches. States that for the last 6 days she had gradual onset of a headache last Monday. Similar to her migraines. She is taken sjpj-loe-sowhlno medication at home without relief. Went to an urgent care on Monday took a couple days off and still the headache has not improved. She denies any arm or leg weakness. She does have photophobia light. No fever. No neck pain. No falls or trauma. She is on no blood thinners. There is no family history of intracranial bleeds or aneurysms. She has had migraines for years. Prior similar symptoms: Yes Recent Illness/Hospitalizatio n: No [facility] Medical History Cephalgia Bleeding in early Seasonal allergies History of DVT of lower extremity Anovulation HISTORY OF PLANTERS WART REMOVAL NECK AND BACK PAIN Difficulty balancing Depression with anxiety Knee pain Shoulder pain Shortness of breath Home Medications ???Medication ???Instructions ???Recorded ???Last Taken ???Type sertraline 100 mg tablet (Zoloft) 100 mg PO DAILY 02/14/22 Unknown History albuterol sulfate 90 mcg/actuation 2 puff inhalation Q6H PRN 08/15/23 Unknown History aerosol inhaler metformin 500 mg tablet 500 mg PO TID 08/15/23 Unknown History multivitamin no.47-iron fum 27 cap PO 08/15/23 Unknown History mg-folate no.1 1 mg-dha 300 mg capsule (PNV-DHA) ondansetron 4 mg disintegrating 4 mg PO Q6H #90 tabs 09/19/23 Unknown Rx tablet levothyroxine 50 mcg tablet 50 mcg PO DAILY #30 tabs 01/09/24 Unknown Rx (Synthroid) Allergy/AdvReac Type Severity Reaction Status Date / Time bacitracin (From Neosporin Allergy Intermediate Rash Verified 03/13/24 14:22 (zia-hhm-eurnw)) neomycin (From Neosporin Allergy Intermediate Rash Verified 03/13/24 14:22 (eqv-njz-islol)) polymyxin B (From Neosporin Allergy Intermediate Rash Verified 03/13/24 14:22 (ymu-icn-utnkr)) latex Allergy Rash Verified 03/13/24 14:22 banana AdvReac Nausea Verified 03/13/24 14:22 Family History Father Seizures Chiari malformation Lupus Sister PCOS (polycystic ovarian syndrome) Aunt PCOS (polycystic ovarian syndrome) Family history of recurrent miscarriage Mother Family history of recurrent miscarriage 2 miscarriges Surgical History History of tonsillectomy and adenoidectomy Social History adopted: No household members: spouse current occupational status: employed current occupation: [employer] pets and animals: Yes (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) pets and animals: cat(s) history of recent travel: Yes (FL[place] at [place]) out of state: Yes out of country: No sexually active: Yes Smoking Status: Never smoker alcohol intake: current alcohol intake frequency: holidays/special occasions only details: not while substance use type: does not use diet: other well-balanced diet: daily or most days caffeine: Yes Type: coffee Number of servings: 1 eating out: 1-3 times/week during the past year weight has: decreased > 10 lbs what type of physical activity do you participate in: swimming frequency: 3-4 times per week song/holiness: Jew seatbelt use: always do you feel safe at home: Yes additional social history: - [employer] ROS ROS ED ROS Narrative Headache. Review of Systems ROS Unobtainable: Denies due to encephalopathy Constitutional Constitutional ED: Denies chills or fever(s) Eyes Eyes: Denies blurry vision, change in vision or diplopia ENT ENT ED: Denies ear pain or rhinorrhea Cardiovascular Cardiovascular: Denies chest pain or palpitations Respiratory/Chest Respiratory/Chest: Denies cough or dyspnea Gastrointestinal Gastrointestinal: Denies abdo (more content not included)... Normal [facility] Urgent Care Visit Reporton 0 03-11-2024 Urgent Care Visit Report [facility] [address], [address] [place] [address] OFFICE VISIT Date of Service: 03/11/24 MR#: [id number] Acct: [id number] Name: MILDRED MICHEL Rep #: [id number] : 1990 Provider: KERRY Medina Age/Sex: 33/F Location: [facility] Status: Signed Intake Vital Signs 03/06/24 09:32 03/11/24 11:58 03/11/24 12:17 03/11/24 12:28 Height 5 ft 3 in 5 ft 3 in 5 ft 2 in Weight: 252 lb BMI 46.0 BP 138/96 H 126/84 H Blood Pressure Location Rt brachial Rt brachial Position Sitting Sitting Respiration 16 16 Pulse 105 H 96 Pulse Source Monitor Auscultation Temp 97.7 F L Temp Source Temporal Pulse Oximetry (%) 98 Oxygen Delivery Method room air Intake Visit Reasons: LYON/CONCERN FOR EAR PAIN/DENTAL PAIN/L SIDE Chief Complaint: MIGRAINE for 4 days Banana Loader Required: No Accompanied by: Self Is patient in pain?: Yes Allergies bacitracin (From Neosporin (gnw-uvt-srqle)) Allergy (Intermediate, Verified 03/11/24 12:19) Rash neomycin (From Neosporin (nvu-zfr-kwwji)) Allergy (Intermediate, Verified 03/11/24 12:19) Rash polymyxin B (From Neosporin (bdu-ned-szmjg)) Allergy (Intermediate, Verified 03/11/24 12:19) Rash latex Allergy (Verified 03/11/24 12:19) Rash banana Adverse Reaction (Verified 03/11/24 12:19) Nausea Medications ???Medication ???Instructions ???Recorded ???Confirmed ???Type sertraline 100 mg tablet (Zoloft) 100 mg PO DAILY 02/14/22 03/11/24 History albuterol sulfate 90 mcg/actuation 2 puff inhalation Q6H PRN 08/15/23 03/11/24 History aerosol inhaler metformin 500 mg tablet 500 mg PO TID 08/15/23 03/11/24 History multivitamin no.47-iron fum 27 cap PO 08/15/23 03/11/24 History mg-folate no.1 1 mg-dha 300 mg capsule (PNV-DHA) ondansetron 4 mg disintegrating 4 mg PO Q6H #90 tabs 09/19/23 03/11/24 Rx tablet levothyroxine 50 mcg tablet 50 mcg PO DAILY #30 tabs 01/09/24 03/11/24 Rx (Synthroid) PFSH Medical History (Updated 03/11/24 @ 12:41 by Rodolfo PAYNE, PA) Cephalgia Bleeding in early Seasonal allergies History of DVT of lower extremity Anovulation HISTORY OF PLANTERS WART REMOVAL NECK AND BACK PAIN Difficulty balancing Depression with anxiety Knee pain Shoulder pain Shortness of breath Surgical History History of tonsillectomy and adenoidectomy Family History Father Seizures Chiari malformation Lupus Sister PCOS (polycystic ovarian syndrome) Aunt PCOS (polycystic ovarian syndrome) Family history of recurrent miscarriage Mother Family history of recurrent miscarriage 2 miscarriges Social History adopted: No household members: spouse current occupational status: employed current occupation: [employer] pets and animals: Yes (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) pets and animals: cat(s) history of recent travel: Yes (FL[place] at [place]) out of state: Yes out of country: No sexually active: Yes Smoking Status: Never smoker alcohol intake: current alcohol intake frequency: holidays/special occasions only details: not while substance use type: does not use diet: other well-balanced diet: daily or most days caffeine: Yes Type: coffee Number of servings: 1 eating out: 1-3 times/week during the past year weight has: decreased > 10 lbs what type of physical activity do you participate in: swimming frequency: 3-4 times per week song/holiness: Jew seatbelt use: always do you feel safe at home: Yes additional social history: - [employer] HPI HPI Chief Complaint: MIGRAINE for 4 days Details: MILDRED MICHEL, is a 33 F who presents to the office today for initial evaluation at the now clinic for persistent left-sided moderate???severe headaches and bilateral ear pressure, with patient noting having a longstanding history of chronic recurring migraines. No complaints of fever, chills, lightheadedness/dizzin ess, nausea/vomiting, or chest pressure/shortness of breath/dyspnea on exertion. Non-smoker. 38 weeks gestation with an otherwise normal she so states, noting her last evaluation with [facility] was 5 days ago with an unremarkable examination on that day. Xsfh-jez-gcxcjid acetaminophen assists with headaches making them slightly more tolerable, though is aware many medications that she would otherwise treat with her migraines are not safe during she states. No other complaints at this time. ROS Const Constitutional: No other (As above) Exam Const General: cooperative, healthy appearing and no acute distress Orientation: alert and awake HENMT Head: normal to inspection Ears: hearing grossly norm (more content not included)... Normal [facility] Rule out Beta Strep (Grp. B) on 03-08-2024 FANNY Group B Beta Streptococcus is not isolated. Normal [facility] Comment on above: Performed By: #### L 100.0100, L500.4050 #### [facility] [address] [place], [address] Transcription Typist Office Visit Reporton 03-06-2024 Transcription Typist Office Visit Report [facility] [address] [place] [address] OFFICE VISIT Date of Service: 03/06/24 MR#: [id number] Acct: [id number] Name: MILDRED MICHELINE Rep #: [id number] : 1990 Provider: CARA Cruz ams Age/Sex: 33/F Location: [facility] – [place] Status: Signed Intake Vital Signs 01/23/24 09:41 02/29/24 08:41 03/06/24 09:28 03/06/24 09:32 Height 5 ft 3 in 5 ft 3 in 5 ft 3 in 5 ft 3 in Weight: 254 lb BMI 44.9 BP 112/76 Intake Visit Reasons: 36 WK OB/NST Banana Loader Required: No Is patient in pain?: No Allergies bacitracin (From Neosporin (yde-lyd-qwrxw)) Allergy (Intermediate, Verified 03/06/24 09:29) Rash neomycin (From Neosporin (jot-ihh-edomn)) Allergy (Intermediate, Verified 03/06/24 09:29) Rash polymyxin B (From Neosporin (ros-cvn-jpmft)) Allergy (Intermediate, Verified 03/06/24 09:29) Rash latex Allergy (Verified 03/06/24 09:29) Rash banana Adverse Reaction (Verified 03/06/24 09:29) Nausea Last Menstrual Period: 06/22/23 Zika: Zika virus screening: Negative : No Have you fallen in the past year?: No PFSH PFSH Medical History Bleeding in early Seasonal allergies History of DVT of lower extremity Anovulation HISTORY OF PLANTERS WART REMOVAL NECK AND BACK PAIN Difficulty balancing Depression with anxiety Knee pain Shoulder pain Shortness of breath Surgical History History of tonsillectomy and adenoidectomy Family History Father Seizures Chiari malformation Lupus Sister PCOS (polycystic ovarian syndrome) Aunt PCOS (polycystic ovarian syndrome) Family history of recurrent miscarriage Mother Family history of recurrent miscarriage 2 miscarriges Social History adopted: No household members: spouse current occupational status: employed current occupation: [employer] pets and animals: Yes (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) pets and animals: cat(s) history of recent travel: Yes (FL[place] at [place]) out of state: Yes out of country: No sexually active: Yes Smoking Status: Never smoker alcohol intake: current alcohol intake frequency: holidays/special occasions only details: not while substance use type: does not use diet: other well-balanced diet: daily or most days caffeine: Yes Type: coffee Number of servings: 1 eating out: 1-3 times/week during the past year weight has: decreased > 10 lbs what type of physical activity do you participate in: swimming frequency: 3-4 times per week song/holiness: Jew seatbelt use: always do you feel safe at home: Yes additional social history: - [employer] History 1 Elective abortions Hx Para 0 Spontaneous abortions Hx # Term Pregnancies Ectopic pregnancies Hx # Pregnancies Multiple births # of living children HPI 36 WK OB/NST Details: MILDRED MICHEL is a 33 year old who presents for routine OB visit. OB Visit DICK Calculator Estimated Delivery Date Method Current WG Current Estimate 03/28/24 LMP (Certain) 36w 6d Expected Delivery Route/Plan Labor Preferences- CB/BF classes: yes labor support person: Manjinder labor intervention preferences: [] pain management options preferred: epidural cut cord/dad catch: maybe : yes PP control planned: discussed discussed possible routes of delivery and associated risks: [] special requests: [] Specific Issue/Plans Covid status: [] Flu vaccine: declined Tdap vaccine: [ Rhogam: NA LARC form signed: yes Problem list reviewed and updated with the most current plan of care details and appropriate orders placed. Relevant counseling for the gestational age provided. Continue routine care and follow up unless otherwise noted in visit notes/problem list details Initial Weight: 241 lb Date -???-???-???-???-???-? ??-???-???-???-???-??? -???- EGA Weight BP Urine Prot -???-???-???-???-???-? ??-???-???-???-???-??? -???- Glucose FHR FuHt Pres Dilation -???-???-???-???-???-? ??-???-???-???-???-??? -???- Effaced St Visit Note 08/24/23 -???-???-???-???-???-? ??-???-???-???-???-??? -???- 9w 0d 241 lb 6 oz (+6 oz) 118/69 -???-???-???-???-???-? ??-???-???-???-???-??? -???- 180 -???-???-???-???-???-? ??-???-???-???-???-??? -???- KW- RGI tracy sfer. spontaneous with help of Clomid. CRL cons with dates and RGI US. NIPT kit given 09/19/23 -???-???-???-???-???-? ??-???-???-???-???-??? -???- 12w 5d 235 lb 4 oz (-5 lb 12 oz) 114/75 114/75 Negative -???-???-???-???-???-? ??-???-???-???-???-??? -???- Negative -???-???-?? (more content not included)... [facility] Transcription Typist Office Visit Reporton 02-29-2024 Transcription Typist Office Visit Report [facility] [address] [place] [address] OFFICE VISIT Date of Service: 02/29/24 MR#: [id number] Acct: [id number] Name: MILDRED MICHEL Rep #: [id number] : 1990 Provider: MARILYN pardo Age/Sex: 33/F Location: [facility] – [place] Status: Signed Intake Vital Signs 01/23/24 09:41 02/22/24 09:32 02/29/24 08:38 02/29/24 08:41 Height 5 ft 3 in 5 ft 3 in 5 ft 3 in 5 ft 3 in Weight: 250 lb 248 lb BMI 44.2 43.9 BP 105/71 113/74 Intake Visit Reasons: NST ONLY Banana Loader Required: No Is patient in pain?: No Allergies bacitracin (From Neosporin (rpk-dwk-txwfl)) Allergy (Intermediate, Verified 02/29/24 08:38) Rash neomycin (From Neosporin (yph-kjj-nefld)) Allergy (Intermediate, Verified 02/29/24 08:38) Rash polymyxin B (From Neosporin (rei-lky-iuker)) Allergy (Intermediate, Verified 02/29/24 08:38) Rash latex Allergy (Verified 02/29/24 08:38) Rash banana Adverse Reaction (Verified 02/29/24 08:38) Nausea Medications ???Medication ???Instructions ???Recorded ???Confirmed ???Type sertraline 100 mg tablet (Zoloft) 100 mg PO DAILY 02/14/22 02/29/24 History albuterol sulfate 90 mcg/actuation 2 puff inhalation Q6H PRN 08/15/23 02/29/24 History aerosol inhaler metformin 500 mg tablet 500 mg PO TID 08/15/23 02/29/24 History multivitamin no.47-iron fum 27 cap PO 08/15/23 02/29/24 History mg-folate no.1 1 mg-dha 300 mg capsule (PNV-DHA) ondansetron 4 mg disintegrating 4 mg PO Q6H #90 tabs 09/19/23 02/29/24 Rx tablet levothyroxine 50 mcg tablet 50 mcg PO DAILY #30 tabs 01/09/24 02/29/24 Rx (Synthroid) Last Menstrual Period: 06/22/23 Zika: Zika virus screening: Negative : No Have you fallen in the past year?: No PFSH PFSH Medical History (Updated 02/29/24 @ 08:39 by Anya Hunt) Bleeding in early Seasonal allergies History of DVT of lower extremity Anovulation HISTORY OF PLANTERS WART REMOVAL NECK AND BACK PAIN Difficulty balancing Depression with anxiety Knee pain Shoulder pain Shortness of breath Surgical History History of tonsillectomy and adenoidectomy Family History Father Seizures Chiari malformation Lupus Sister PCOS (polycystic ovarian syndrome) Aunt PCOS (polycystic ovarian syndrome) Family history of recurrent miscarriage Mother Family history of recurrent miscarriage 2 miscarriges Social History adopted: No household members: spouse current occupational status: employed current occupation: [employer] pets and animals: Yes (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) pets and animals: cat(s) history of recent travel: Yes ([employer] at [place]) out of state: Yes out of country: No sexually active: Yes Smoking Status: Never smoker alcohol intake: current alcohol intake frequency: holidays/special occasions only details: not while substance use type: does not use diet: other well-balanced diet: daily or most days caffeine: Yes Type: coffee Number of servings: 1 eating out: 1-3 times/week during the past year weight has: decreased > 10 lbs what type of physical activity do you participate in: swimming frequency: 3-4 times per week song/holiness: Jew seatbelt use: always do you feel safe at home: Yes additional social history: - [employer] History 1 Elective abortions Hx Para 0 Spontaneous abortions Hx # Term Pregnancies Ectopic pregnancies Hx # Pregnancies Multiple births # of living children HPI NST ONLY Details: MILDRED MICHEL is a 33 year old who presents for routine OB visit. OB Visit DICK Calculator Estimated Delivery Date Method Current WG Current Estimate 03/28/24 LMP (Certain) 36w 0d Expected Delivery Route/Plan Labor Preferences- CB/BF classes: yes labor support person: Manjinder labor intervention preferences: [] pain management options preferred: epidural cut cord/dad catch: maybe : yes PP control planned: discussed discussed possible routes of delivery and associated risks: [] special requests: [] Specific Issue/Plans Covid status: [] Flu vaccine: declined Tdap vaccine: [ Rhogam: NA LARC form signed: yes Problem list reviewed and updated with the most current plan of care details and appropriate orders placed. Relevant counseling for the gestational age provided. Continue routine care and follow up unless otherwise noted in visit notes/problem list details Initial Weight: 241 lb Date -???-???-???-???-???-? ??-???-???-???-???-??? -???- EGA Weight BP Urine Prot -???-???-???-? (more content not included)... [facility] Transcription Typist Office Visit Reporton 02-22-2024 Transcription Typist Office Visit Report [facility] [address] [place] [address] OFFICE VISIT Date of Service: 02/22/24 MR#: [id number] Acct: [id number] Name: MILDRED MICHEL Rep #: [id number] : 1990 Provider: Dr. Gudelia Reyna DO Age/Sex: 33/F Location: [facility] – [place] Status: Signed Intake Vital Signs 01/23/24 09:41 02/13/24 08:23 02/22/24 09:32 02/22/24 10:19 Height 5 ft 3 in 5 ft 3 in 5 ft 3 in Weight: 250 lb BMI 44.2 BP 105/71 105/71 Intake Visit Reasons: 33 WK OB/NST Banana Loader Required: No Is patient in pain?: No Allergies bacitracin (From Neosporin (rym-mji-djibr)) Allergy (Intermediate, Verified 02/22/24 09:34) Rash neomycin (From Neosporin (khr-jeo-rxmaw)) Allergy (Intermediate, Verified 02/22/24 09:34) Rash polymyxin B (From Neosporin (vdn-qjp-alede)) Allergy (Intermediate, Verified 02/22/24 09:34) Rash latex Allergy (Verified 02/22/24 09:34) Rash banana Adverse Reaction (Verified 02/22/24 09:34) Nausea Medications ???Medication ???Instructions ???Recorded ???Confirmed ???Type sertraline 100 mg tablet (Zoloft) 100 mg PO DAILY 02/14/22 02/22/24 History albuterol sulfate 90 mcg/actuation 2 puff inhalation Q6H PRN 08/15/23 02/22/24 History aerosol inhaler metformin 500 mg tablet 500 mg PO TID 08/15/23 02/22/24 History multivitamin no.47-iron fum 27 cap PO 08/15/23 02/22/24 History mg-folate no.1 1 mg-dha 300 mg capsule (PNV-DHA) ondansetron 4 mg disintegrating 4 mg PO Q6H #90 tabs 09/19/23 02/22/24 Rx tablet levothyroxine 50 mcg tablet 50 mcg PO DAILY #30 tabs 01/09/24 02/22/24 Rx (Synthroid) Last Menstrual Period: 06/22/23 Zika: Zika virus screening: Negative : No PFSH PFSH Medical History (Updated 02/22/24 @ 10:[address] Gudelia Dominguez, DO) Bleeding in early Seasonal allergies History of DVT of lower extremity Anovulation HISTORY OF PLANTERS WART REMOVAL NECK AND BACK PAIN Difficulty balancing Depression with anxiety Knee pain Shoulder pain Shortness of breath Surgical History History of tonsillectomy and adenoidectomy Family History Father Seizures Chiari malformation Lupus Sister PCOS (polycystic ovarian syndrome) Aunt PCOS (polycystic ovarian syndrome) Family history of recurrent miscarriage Mother Family history of recurrent miscarriage 2 miscarriges Social History adopted: No household members: spouse current occupational status: employed current occupation: [employer] pets and animals: Yes (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) pets and animals: cat(s) history of recent travel: Yes (FL[place] at [place]) out of state: Yes out of country: No sexually active: Yes Smoking Status: Never smoker alcohol intake: current alcohol intake frequency: holidays/special occasions only details: not while substance use type: does not use diet: other well-balanced diet: daily or most days caffeine: Yes Type: coffee Number of servings: 1 eating out: 1-3 times/week during the past year weight has: decreased > 10 lbs what type of physical activity do you participate in: swimming frequency: 3-4 times per week song/holiness: Jew seatbelt use: always do you feel safe at home: Yes additional social history: - [employer] History 1 Elective abortions Hx Para 0 Spontaneous abortions Hx # Term Pregnancies Ectopic pregnancies Hx # Pregnancies Multiple births # of living children HPI 33 WK OB/NST Details: MILDRED MICHEL is a 33 year old who presents for routine OB visit. OB Visit DICK Calculator Estimated Delivery Date Method Current WG Current Estimate 03/28/24 LMP (Certain) 35w 0d Expected Delivery Route/Plan Labor Preferences- CB/BF classes: yes labor support person: Manjinder labor intervention preferences: [] pain management options preferred: epidural cut cord/dad catch: maybe : yes PP control planned: discussed discussed possible routes of delivery and associated risks: [] special requests: [] Specific Issue/Plans Covid status: [] Flu vaccine: declined Tdap vaccine: [ Rhogam: NA LARC form signed: yes Problem list reviewed and updated with the most current plan of care details and appropriate orders placed. Relevant counseling for the gestational age provided. Continue routine care and follow up unless otherwise noted in visit notes/problem list details Initial Weight: 241 lb Date -???-???-???-???-???-? ??-???-???-???-???-??? -???- EGA Weight BP Urine Prot -???-???-???-???-???-? ??-???-???-???-???-?? (more content not included)... [facility] Transcription Typist Office Visit Reporton 02-13-2024 Transcription Typist Office Visit Report [facility] [address] [place] [address] OFFICE VISIT Date of Service: 02/13/24 MR#: [id number] Acct: [id number] Name: MILDRED MICHEL Rep #: [id number] : 1990 Provider: Dr. Carey chavez MD Age/Sex: 33/F Location: [facility] [place] Status: Signed Intake Vital Signs 02/08/24 14:09 02/13/24 08:23 Height 5 ft 3 in 5 ft 3 in Weight: 251 lb 8 oz BMI 44.5 BP 108/73 Intake Visit Reasons: 32 WK NST ONLY Chief Complaint: NST ONLY Banana Loader Required: No Is patient in pain?: No Allergies bacitracin (From Neosporin (nix-ujd-sfgzm)) Allergy (Intermediate, Verified 02/13/24 08:22) Rash neomycin (From Neosporin (onj-cqc-vqrde)) Allergy (Intermediate, Verified 02/13/24 08:22) Rash polymyxin B (From Neosporin (nuq-zzj-tilyo)) Allergy (Intermediate, Verified 02/13/24 08:22) Rash latex Allergy (Verified 02/13/24 08:22) Rash banana Adverse Reaction (Verified 02/13/24 08:22) Nausea Medications ???Medication ???Instructions ???Recorded ???Confirmed ???Type sertraline 100 mg tablet (Zoloft) 100 mg PO DAILY 02/14/22 02/13/24 History albuterol sulfate 90 mcg/actuation 2 puff inhalation Q6H PRN 08/15/23 02/13/24 History aerosol inhaler metformin 500 mg tablet 500 mg PO TID 08/15/23 02/13/24 History multivitamin no.47-iron fum 27 cap PO 08/15/23 02/13/24 History mg-folate no.1 1 mg-dha 300 mg capsule (PNV-DHA) ondansetron 4 mg disintegrating 4 mg PO Q6H #90 tabs 09/19/23 02/13/24 Rx tablet levothyroxine 50 mcg tablet 50 mcg PO DAILY #30 tabs 01/09/24 02/13/24 Rx (Synthroid) Last Menstrual Period: 06/22/23 Zika: Zika virus screening: Negative : No PFSH PFSH Medical History (Updated 02/13/24 @ 09:[address] Carey Nassar MD) Bleeding in early Seasonal allergies History of DVT of lower extremity Anovulation HISTORY OF PLANTERS WART REMOVAL NECK AND BACK PAIN Difficulty balancing Depression with anxiety Knee pain Shoulder pain Shortness of breath Surgical History History of tonsillectomy and adenoidectomy Family History Father Seizures Chiari malformation Lupus Sister PCOS (polycystic ovarian syndrome) Aunt PCOS (polycystic ovarian syndrome) Family history of recurrent miscarriage Mother Family history of recurrent miscarriage 2 miscarriges Social History adopted: No household members: spouse current occupational status: employed current occupation: [employer] pets and animals: Yes (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) pets and animals: cat(s) history of recent travel: Yes (FL[place] at [place]) out of state: Yes out of country: No sexually active: Yes Smoking Status: Never smoker alcohol intake: current alcohol intake frequency: holidays/special occasions only details: not while substance use type: does not use diet: other well-balanced diet: daily or most days caffeine: Yes Type: coffee Number of servings: 1 eating out: 1-3 times/week during the past year weight has: decreased > 10 lbs what type of physical activity do you participate in: swimming frequency: 3-4 times per week song/holiness: Jew seatbelt use: always do you feel safe at home: Yes additional social history: - [employer] History 1 Elective abortions Hx Para 0 Spontaneous abortions Hx # Term Pregnancies Ectopic pregnancies Hx # Pregnancies Multiple births # of living children HPI 32 WK NST ONLY Details: MILDRED MICHEL is a 33 year old who presents for routine OB visit. OB Visit DICK Calculator Estimated Delivery Date Method Current WG Current Estimate 03/28/24 LMP (Certain) 33w 5d Expected Delivery Route/Plan Labor Preferences- CB/BF classes: yes labor support person: Manjinder labor intervention preferences: [] pain management options preferred: epidural cut cord/dad catch: maybe : yes PP control planned: discussed discussed possible routes of delivery and associated risks: [] special requests: [] Specific Issue/Plans Covid status: [] Flu vaccine: declined Tdap vaccine: [ Rhogam: NA LARC form signed: yes Problem list reviewed and updated with the most current plan of care details and appropriate orders placed. Relevant counseling for the gestational age provided. Continue routine care and follow up unless otherwise noted in visit notes/problem list details Initial Weight: 241 lb Date -???-???-???-???-???-? ??-???-???-???-???-??? -???- EGA Weight BP Urine Prot -???-???-???-???-???-? ??-???-???-???-???-??? -???- Glucos (more content not included)... [facility] Transcription Typist Office Visit Reporton 02-08-2024 Transcription Typist Office Visit Report [facility] [address] [place] [address] OFFICE VISIT Date of Service: 02/08/24 MR#: [id number] Acct: [id number] Name: MILDRED MICHEL Rep #: [id number] : 1990 Provider: Dr. Gudelia Reyna DO Age/Sex: 33/F Location: [facility] – [place] Status: Signed Intake Vital Signs 12/11/23 08:33 01/23/24 09:41 02/08/24 14:07 02/08/24 14:09 Height 5 ft 3 in 5 ft 3 in 5 ft 3 in 5 ft 3 in Weight: 248 lb 4 oz BMI 43.9 BP 108/74 Intake Visit Reasons: 31 WK OB Banana Loader Required: No Is patient in pain?: No Allergies bacitracin (From Neosporin (tfp-zkl-uljxn)) Allergy (Intermediate, Verified 02/08/24 14:06) Rash neomycin (From Neosporin (jwc-wes-uhjrn)) Allergy (Intermediate, Verified 02/08/24 14:06) Rash polymyxin B (From Neosporin (jsd-gkp-yoknz)) Allergy (Intermediate, Verified 02/08/24 14:06) Rash latex Allergy (Verified 02/08/24 14:06) Rash banana Adverse Reaction (Verified 02/08/24 14:06) Nausea Medications ???Medication ???Instructions ???Recorded ???Confirmed ???Type sertraline 100 mg tablet (Zoloft) 100 mg PO DAILY 02/14/22 02/08/24 History albuterol sulfate 90 mcg/actuation 2 puff inhalation Q6H PRN 08/15/23 02/08/24 History aerosol inhaler metformin 500 mg tablet 500 mg PO TID 08/15/23 02/08/24 History multivitamin no.47-iron fum 27 cap PO 08/15/23 02/08/24 History mg-folate no.1 1 mg-dha 300 mg capsule (PNV-DHA) ondansetron 4 mg disintegrating 4 mg PO Q6H #90 tabs 09/19/23 02/08/24 Rx tablet levothyroxine 50 mcg tablet 50 mcg PO DAILY #30 tabs 01/09/24 02/08/24 Rx (Synthroid) Last Menstrual Period: 06/22/23 Zika: Zika virus screening: Negative : No PFSH PFSH Medical History Bleeding in early Seasonal allergies History of DVT of lower extremity Anovulation HISTORY OF PLANTERS WART REMOVAL NECK AND BACK PAIN Difficulty balancing Depression with anxiety Knee pain Shoulder pain Shortness of breath Surgical History History of tonsillectomy and adenoidectomy Family History Father Seizures Chiari malformation Lupus Sister PCOS (polycystic ovarian syndrome) Aunt PCOS (polycystic ovarian syndrome) Family history of recurrent miscarriage Mother Family history of recurrent miscarriage 2 miscarriges Social History adopted: No household members: spouse current occupational status: employed current occupation: [employer] pets and animals: Yes (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) pets and animals: cat(s) history of recent travel: Yes (FL[place] at [place]) out of state: Yes out of country: No sexually active: Yes Smoking Status: Never smoker alcohol intake: current alcohol intake frequency: holidays/special occasions only details: not while substance use type: does not use diet: other well-balanced diet: daily or most days caffeine: Yes Type: coffee Number of servings: 1 eating out: 1-3 times/week during the past year weight has: decreased > 10 lbs what type of physical activity do you participate in: swimming frequency: 3-4 times per week song/holiness: Jew seatbelt use: always do you feel safe at home: Yes additional social history: - [employer] History 1 Elective abortions Hx Para 0 Spontaneous abortions Hx # Term Pregnancies Ectopic pregnancies Hx # Pregnancies Multiple births # of living children HPI 31 WK OB Details: MILDRED MICHEL is a 33 year old who presents for routine OB visit. OB Visit DICK Calculator Estimated Delivery Date Method Current WG Current Estimate 03/28/24 LMP (Certain) 33w 0d Expected Delivery Route/Plan Labor Preferences- CB/BF classes: yes labor support person: Manjinder labor intervention preferences: [] pain management options preferred: epidural cut cord/dad catch: maybe : yes PP control planned: discussed discussed possible routes of delivery and associated risks: [] special requests: [] Specific Issue/Plans Covid status: [] Flu vaccine: declined Tdap vaccine: [ Rhogam: NA LARC form signed: yes Problem list reviewed and updated with the most current plan of care details and appropriate orders placed. Relevant counseling for the gestational age provided. Continue routine care and follow up unless otherwise noted in visit notes/problem list details Initial Weight: 241 lb Date -???-???-???-???-???-? ??-???-???-???-???-??? -???- EGA Weight BP Urine Prot -???-???-???-???-???-? ??-???-???-???-???-??? -???- Gl (more content not included)... Normal [facility] Transcription Typist Office Visit Reporton 01-23-2024 Transcription Typist Office Visit Report [facility] [address] [place] [address]. [address] [place] [address] OFFICE VISIT Date of Service: 01/23/24 MR#: [id number] Acct: [id number] Name: MILDRED MICHEL Rep #: [id number] : 1990 Provider: Dr. Carey chavez MD Age/Sex: 33/F Location: [facility] [place] Status: Signed Intake Vital Signs 12/11/23 08:33 01/09/24 16:21 01/23/24 09:41 Height 5 ft 3 in 5 ft 3 in 5 ft 3 in Weight: 245 lb 4 oz 248 lb 246 lb 6 oz BMI 43.4 43.9 43.6 BP 120/78 104/66 114/75 Intake Visit Reasons: 29 WK OB Banana Loader Required: No Is patient in pain?: No Allergies bacitracin (From Neosporin (amq-cls-ixlpj)) Allergy (Intermediate, Verified 01/23/24 09:45) Rash neomycin (From Neosporin (zal-nri-ntjac)) Allergy (Intermediate, Verified 01/23/24 09:45) Rash polymyxin B (From Neosporin (dtq-xlw-wqhez)) Allergy (Intermediate, Verified 01/23/24 09:45) Rash latex Allergy (Verified 01/23/24 09:45) Rash banana Adverse Reaction (Verified 01/23/24 09:45) Nausea Medications ???Medication ???Instructions ???Recorded ???Confirmed ???Type sertraline 100 mg tablet (Zoloft) 100 mg PO DAILY 02/14/22 01/23/24 History albuterol sulfate 90 mcg/actuation 2 puff inhalation Q6H PRN 08/15/23 01/23/24 History aerosol inhaler metformin 500 mg tablet 500 mg PO TID 08/15/23 01/23/24 History multivitamin no.47-iron fum 27 cap PO 08/15/23 01/23/24 History mg-folate no.1 1 mg-dha 300 mg capsule (PNV-DHA) ondansetron 4 mg disintegrating 4 mg PO Q6H #90 tabs 09/19/23 01/23/24 Rx tablet levothyroxine 50 mcg tablet 50 mcg PO DAILY #30 tabs 01/09/24 01/23/24 Rx (Synthroid) Last Menstrual Period: 06/22/23 Current gender identity: female Zika: Zika virus screening: Negative : No PFSH PFSH Medical History Bleeding in early Seasonal allergies History of DVT of lower extremity Anovulation HISTORY OF PLANTERS WART REMOVAL NECK AND BACK PAIN Difficulty balancing Depression with anxiety Knee pain Shoulder pain Shortness of breath Surgical History History of tonsillectomy and adenoidectomy Family History Father Seizures Chiari malformation Lupus Sister PCOS (polycystic ovarian syndrome) Aunt PCOS (polycystic ovarian syndrome) Family history of recurrent miscarriage Mother Family history of recurrent miscarriage 2 miscarriges Social History adopted: No household members: spouse current occupational status: employed current occupation: [employer] pets and animals: Yes (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) pets and animals: cat(s) history of recent travel: Yes (FL[place] at [place]) out of state: Yes out of country: No sexually active: Yes Smoking Status: Never smoker alcohol intake: current alcohol intake frequency: holidays/special occasions only details: not while substance use type: does not use diet: other well-balanced diet: daily or most days caffeine: Yes Type: coffee Number of servings: 1 eating out: 1-3 times/week during the past year weight has: decreased > 10 lbs what type of physical activity do you participate in: swimming frequency: 3-4 times per week song/holiness: Jew seatbelt use: always do you feel safe at home: Yes additional social history: - [employer] History 1 Elective abortions Hx Para 0 Spontaneous abortions Hx # Term Pregnancies Ectopic pregnancies Hx # Pregnancies Multiple births # of living children HPI 29 WK OB Details: MILDRED MICHEL is a 33 year old who presents for routine OB visit. OB Visit DICK Calculator Estimated Delivery Date Method Current WG Current Estimate 03/28/24 LMP (Certain) 30w 5d Expected Delivery Route/Plan Labor Preferences- CB/BF classes: yes labor support person: Manjinder labor intervention preferences: [] pain management options preferred: epidural cut cord/dad catch: maybe : yes PP control planned: discussed discussed possible routes of delivery and associated risks: [] special requests: [] Specific Issue/Plans Covid status: [] Flu vaccine: declined Tdap vaccine: [ Rhogam: NA LARC form signed: yes Problem list reviewed and updated with the most current plan of care details and appropriate orders placed. Relevant counseling for the gestational age provided. Continue routine care and follow up unless otherwise noted in visit notes/problem list details Initial Weight: 241 lb Date -???-???-???-???-???-? ??-???-???-???-???-??? -???- EGA Weight BP Urine Prot -???-???-? (more content not included)... Normal [facility] CBC W/Diff, Automatedon 05-1 0-2023 Absolute Lymph 0.76 X10 3/uL Low 0.83-4.51 [facility] Comment on above: Performed By: #### L 509.8000, L501.9520, L501.0250, L3890.6005, L100.0100 #### [facility] [address] [place], [address] Absolute Neut 4.9 X10 3/uL Normal 2.0-7.7 [facility] Comment on above: Performed By: #### L 509.8000, L501.9520, L501.0250, L3890.6005, L100.0100 #### [facility] [address] [place], [address] Basophils/100 WBC (Bld) 0.6 % Normal 0-1 [facility] Comment on above: Performed By: #### L 509.8000, L501.9520, L501.0250, L3890.6005, L100.0100 #### [facility] [address] [place], [address] Eosinophils/100 WBC (Bld) 1.6 % Normal 0-5 [facility] Comment on above: Performed By: #### L 509.8000, L501.9520, L501.0250, L3890.6005, L100.0100 #### [facility] [address] [place], [address] Erythrocyte distribution width (RBC) [Ratio] 13.2 % Normal 11.6-14.6 [facility] Comment on above: Performed By: #### L 509.8000, L501.9520, L501.0250, L3890.6005, L100.0100 #### [facility] [address] [place], [address] Hematocrit (Bld) [Volume fraction] 36.6 % Low 37-47 [facility] Comment on above: Performed By: #### L 509.8000, L501.9520, L501.0250, L3890.6005, L100.0100 #### [facility] [address] [place], [address] Hemoglobin (Bld) [Mass/Vol] 12.3 g/dL Normal 12.0-15.0 [facility] Comment on above: Performed By: #### L 509.8000, L501.9520, L501.0250, L3890.6005, L100.0100 #### [facility] [address] [place], [address] IG% 0.500 Normal 0.0-0.9 [facility] Comment on above: Result Comment: IG% - Immature Granulocytes (promyelocytes, myelocytes and metamyelocytes) > 1% indicates that a LEFT SHIFT is Present. Performed By: #### L 509.8000, L501.9520, L501.0250, L3890.6005, L100.0100 #### [facility] [address] [place], [address] Lymphocytes/100 WBC (Bld) 12.3 % Low 19-41 [facility] Comment on above: Performed By: #### L 509.8000, L501.9520, L501.0250, L3890.6005, L100.0100 #### [facility] [address] [place], [address] MCH (RBC) [Entitic mass] 29.6 pg Normal 27.0-32.0 [facility] Comment on above: Performed By: #### L 509.8000, L501.9520, L501.0250, L3890.6005, L100.0100 #### [facility] [address] [place], [address] MCHC (RBC) [Mass/Vol] 33.6 g/dL Normal 32-36 [facility] Comment on above: Performed By: #### L 509.8000, L501.9520, L501.0250, L3890.6005, L100.0100 #### [facility] [address] [place], [address] MCV (RBC) [Entitic vol] 88.2 fL Normal 81-99 [facility] Comment on above: Performed By: #### L 509.8000, L501.9520, L501.0250, L3890.6005, L100.0100 #### [facility] [address] [place], [address] Monocytes/100 WBC (Bld) 5.5 % Normal 0-[facility] Comment on above: Performed By: #### L 509.8000, L501.9520, L501.0250, L3890.6005, L100.0100 #### [facility] [address] [place], [address] Neutrophils/100 WBC (Bld) 79.5 % High 47-70 [facility] Comment on above: Performed By: #### L 509.8000, L501.9520, L501.0250, L3890.6005, L100.0100 #### [facility] [address] [place], [address] Nucleated RBC (Bld) [#/Vol] 0 10*3/uL Normal 0-5 [facility] Comment on above: Performed By: #### L 509.8000, L501.9520, L501.0250, L3890.6005, L100.0100 #### [facility] [address] [place], [address] Platelet mean volume (Bld) [Entitic vol] 10.7 fL Normal 6.2-12.0 [facility] Comment on above: Performed By: #### L 509.8000, L501.9520, L501.0250, L3890.6005, L100.0100 #### [facility] [address] [place], [address] Platelets (Bld) [#/Vol] 170 10*3/uL Normal 150-450 [facility] Comment on above: Performed By: #### L 509.8000, L501.9520, L501.0250, L3890.6005, L100.0100 #### [facility] [address] [place], [address] RBC (Bld) [#/Vol] 4.15 10*6/uL Low 4.2-5.4 [facility] Comment on above: Performed By: #### L 509.8000, L501.9520, L501.0250, L3890.6005, L100.0100 #### [facility] [address] [place], [address] RDW SD 43.1 fl Normal 35.1-43.9 [facility] Comment on above: Performed By: #### L 509.8000, L501.9520, L501.0250, L3890.6005, L100.0100 #### [facility] [address] [place], [address] WBC (Bld) [#/Vol] 6.2 10*3/uL Normal 4.4-11.0 [facility] Comment on above: Performed By: #### L 509.8000, L501.9520, L501.0250, L3890.6005, L100.0100 #### [facility] [address] [place], [address] Glucose Challenge Gest 1H 50 reid 05- GLU GEST 50g 1H 130 mg/dL Normal 70-140 [facility] Comment on above: Performed By: #### L 509.8000, L501.9520, L501.0250, L3890.6005, L100.0100 #### [facility] [address] [place], [address] HIV - WCHon 01-12-2024 HIV Non-Reactive Normal Nonreactive [facility] Comment on above: Performed By: #### L 509.8000, L501.9520, L501.0250, L3890.6005, L100.0100 #### [facility] [address] [place], [address] L509.8000on 01-12-2024 Syphilis Abs Non-Reactive Normal [facility] Comment on above: Performed By: #### L 509.8000, L501.9520, L501.0250, L3890.6005, L100.0100 #### [facility] [address] [place], [address] Thyroid Stim Hormone (TSH)on 01-12-2024 TSH 1.37 uIU/mL Normal 0.358-3.74 [facility] Comment on above: Performed By: #### L 509.8000, L501.9520, L501.0250, L3890.6005, L100.0100 #### [facility] [address] [place], [address] Transcription Typist Office Visit Reporton 01-09-2024 Transcription Typist Office Visit Report [facility] [address] [place] [address] OFFICE VISIT Date of Service: 01/09/24 MR#: [id number] Acct: [id number] Name: MILDRED MICHELINE Rep #: [id number] : 1990 Provider: Dr. Gudelia Reyna DO Age/Sex: 33/F Location: [facility] [place] Status: Signed Intake Vital Signs 12/11/23 08:33 01/09/24 16:21 Height 5 ft 3 in 5 ft 3 in Weight: 248 lb BMI 43.9 BP 104/66 Intake Visit Reasons: 28 WK OB Banana Loader Required: No Is patient in pain?: No Allergies bacitracin [From Neosporin ([id number])] Allergy (Intermediate, Verified 01/09/24 16:22) Rash neomycin [From Neosporin (ceh-fsm-cwape)] Allergy (Intermediate, Verified 01/09/24 16:22) Rash polymyxin B [From Neosporin (isd-xki-urgqs)] Allergy (Intermediate, Verified 01/09/24 16:22) Rash latex Allergy (Verified 01/09/24 16:22) Rash banana Adverse Reaction (Verified 01/09/24 16:22) Nausea Medications sertraline 100 mg tablet (Zoloft) 100 mg PO DAILY 02/14/22 [History Confirmed 01/09/24] albuterol sulfate 90 mcg/actuation aerosol inhaler 2 puff inhalation Q6H PRN 08/15/23 [History Confirmed 01/09/24] metformin 500 mg tablet 500 mg PO TID 08/15/23 [History Confirmed 01/09/24] multivitamin no.47-iron fum 27 mg-folate no.1 1 mg-dha 300 mg capsule (PNV-DHA) cap PO 08/15/23 [History Confirmed 01/09/24] ondansetron 4 mg disintegrating tablet 4 mg PO Q6H #90 tabs 09/19/23 [Rx Confirmed 01/09/24] levothyroxine 50 mcg tablet (Synthroid) 50 mcg PO DAILY #30 tabs 01/09/24 [Rx Confirmed 01/09/24] Last Menstrual Period: 06/22/23 Zika: Zika virus screening: Negative : No PFSH PFSH Medical History Anovulation Bleeding in early Depression with anxiety Difficulty balancing History of DVT of lower extremity HISTORY OF PLANTERS WART REMOVAL Knee pain NECK AND BACK PAIN Seasonal allergies Shortness of breath Shoulder pain Surgical History History of tonsillectomy and adenoidectomy Family History Father Seizures Chiari malformation Lupus Sister PCOS (polycystic ovarian syndrome) Aunt PCOS (polycystic ovarian syndrome) Family history of recurrent miscarriage Mother Family history of recurrent miscarriage 2 miscarriges Social History adopted: No household members: spouse current occupational status: employed current occupation: [employer] pets and animals: Yes (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) pets and animals: cat(s) history of recent travel: Yes ([place] at [place]) out of state: Yes out of country: No sexually active: Yes Smoking Status: Never smoker alcohol intake: current alcohol intake frequency: holidays/special occasions only details: not while substance use type: does not use diet: other well-balanced diet: daily or most days caffeine: Yes Type: coffee Number of servings: 1 eating out: 1-3 times/week during the past year weight has: decreased > 10 lbs what type of physical activity do you participate in: swimming frequency: 3-4 times per week song/holiness: Jew seatbelt use: always do you feel safe at home: Yes additional social history: - [employer] History 1 Elective abortions Hx Para 0 Spontaneous abortions Hx # Term Pregnancies Ectopic pregnancies Hx # Pregnancies Multiple births # of living children HPI 28 WK OB Details: MILDRED MICHEL is a 33 year old who presents for routine OB visit. OB Visit DICK Calculator Estimated Delivery Date Method Current WG Current Estimate 03/28/24 LMP (Certain) 28w 5d Expected Delivery Route/Plan Labor Preferences- CB/BF classes: yes labor support person: Manjinder labor intervention preferences: [] pain management options preferred: epidural cut cord/dad catch: maybe : yes PP control planned: discussed discussed possible routes of delivery and associated risks: [] special requests: [] Specific Issue/Plans Covid status: [] Flu vaccine: declined Tdap vaccine: [ Rhogam: NA LARC form signed: yes Problem list reviewed and updated with the most current plan of care details and appropriate orders placed. Relevant counseling for the gestational age provided. Continue routine care and follow up unless otherwise noted in visit notes/problem list details Initial Weight: Not Recorded Date -???-???-???-???-???-? ??-???-???-???-???-??? -???- EGA Weight BP Urine Prot -???-???-???-???-???-? ??-???-???-???-???-??? -???- Glucose FHR FuHt Pres Dilation -???-???-???-???-???-? ??-???-???-???-???-??? -???- (more content not included)... Normal [facility] Progress Noteon 11-20-2023 Process Worker Authentication Interface Message Text MFM attending note: Mildred is a 33 y.o. female, and is at 21w6d Reason for the visit: Multicystic dysplastic kidney HPI: The patient is her to evaluate Multicystic dysplastic kidney. Mildred denies nausea, vomiting, vaginal bleeding, vaginal discharge, and/or cramping. A separate genetic counseling note will be sent separately. Review of Systems Constitutional: Negative. HENT: Negative. Eyes: Negative. Respiratory: Negative. Cardiovascular: Negative. Gastrointestinal: Negative. Genitourinary: Negative. Musculoskeletal: Negative. Skin: Negative. Neurological: Negative. Endo/Heme/Allergies: Negative. Psychiatric/Behavioral : Negative. PHYSICAL EXAM: BP 120/58 Pulse 88 Resp 20 Ht 160 cm Wt (!) 109.4 kg (241 lb 1.6 oz) LMP 06/22/2023 SpO2 98% BMI 42.71 kg/m Constitutional: General: She is active. HENT: Head: Atraumatic. Eyes: Extraocular Movements: EOM normal. Conjunctiva/sclera: Conjunctivae normal. Pulmonary: Effort: Pulmonary effort is normal. Abdominal: Comments: gravid uterus Musculoskeletal: Normal range of motion. Neurological: Mental Status: She is alert. X 3. Ultrasound report: 1. Single living intrauterine at with biometry consistent with clinical dates. 2. Evaluation of the renal system: - Right kidney appears to be normal. - The left kidney: Multicystic dysplastic kidney with two dominant cysts: Superior Pole cyst measuring 7.1 mm x 4.1 mm x 6.6 mm and an inferior pole cyst measuring 9.8 mm x 6.1 mm x 6.1 mm. The cyst are peripherally located. The renal parenchyma is still preserved. - There is no hydroureter. - The bladder appears normal and the bladder wall is normal without thickening. - Amniotic fluid appeared normal. 3. Placenta is posterior, grade 0. [facility] Plan of Care Diagnosis: Unilateral (left) multicystic dysplastic kidney. Cell free DNA aneuploidy screening is low risk. Declined invasive testing. Plan: 1. Continued obstetrical care with her primary floral decorator is recommended. 2. Follow up q4 weeks to evaluate biometric parameters and renals. These are planned with the [facility]. 3. surveillance as follows: as clinically indicated. 4. Consultation with Pediatric Nephrology will be arranged. 5. Delivery is appropriate at your local institution. 6. Mode and timing of delivery are based on the usual obstetrical indications. 7. Pediatric provider to determine if additional evaluations are recommended prior to discharge. 8. Renal ultrasound and follow up with Pediatric Nephrology at 1 month after . Please call [phone]. 9. Other follow up as clinically indicated. Chart review and preparation: 10 minutes. Face to face: 15 minutes. Documentation and care coordination: 5 minutes. Total time spent on patient care today: 30 minutes. Normal [facility] - Chemistry and C hemistry - challengeon 11-16-2023 Glucose Ql (U) Negative [facility] - Urinalysison Protein Ql (U) Negative [facility] - Chemistry and C hemistry - challengeon 10-16-2023 Glucose Ql (U) Negative [facility] - Urinalysison Protein Ql (U) Negative [facility] - Chemistry and C hemistry - challengeon 09-19-2023 Glucose Ql (U) Negative [facility] - Urinalysison Protein Ql (U) Negative [facility] - Chemistry and C hemistry - challengeOrdered By: Khoi King on 09-18-2023 Free T4 [Mass/Vol] 0.91 ng/dL 0.76-1.46 [facility] No Panel InformationOrdered By: Khoi King on 09-18-2023 Miscellaneous Test Comment MAILED SPECIMEN [facility] Thyroid Stimulating Hormone (TSH) 1.52 uIU/mL 0.358-3.74 [facility] Chlamydia trachomatis rRNA d etection by probe and target amplification methodOrdered By: Khoi King on 08-24-2023 C. trachomatis rRNA EZEKIEL+probe Ql (Unsp spec) Negative Negative [facility] Culture, urineOrdered By: Phillip King on 08-24-2023 Bacteria identified Cx Nom (U) Mixed Gram Pos & Gram Neg Org [facility] Bacteria identified Cx Nom (U) Mixed Gram Pos & Gram Neg Org [facility] - Microbiology an d Antimicrobial susceptibilityOrdered By: Khoi King on 08-24-2023 N. gonorrhoeae DNA EZEKIEL+probe Ql (Unsp spec) Negative Negative [facility] Comment on above: Performed at: =[facility] [place] [address] [id number] Director: Lashon Block MD, Phone: [phone] Absolute lymphocyte countOrd ered By: Khoi King on 08-15-2023 Lymphocytes Auto (Unsp spec) [#/Vol] 2.80 10*3/uL 0.83-4.51 [facility] Basophil percentageOrdered B y: Khoi King on 08-15-2023 Basophils/100 WBC (Bld) 0.7 % 0-1 [facility] Eosinophils/100 WBC (Bld) 4.2 % 0-5 [facility] Neutrophils (Bld) [#/Vol] 6.0 10*3/uL 2.0-7.7 [facility] Neutrophils/100 WBC (Bld) 59.7 % 47-70 [facility] WBC (Bld) [#/Vol] 10.0 10*3/uL 4.4-11.0 [facility] Blood erythrocytes count (nu mber/volume)Ordered By: Khoi King on 08-15-2023 RBC (Bld) [#/Vol] 4.82 10*6/uL 4.2-5.4 [facility] Blood hemoglobin measurement (mass/volume)Ordered By: Khoi King on 08-15-2023 Hemoglobin (Bld) [Mass/Vol] 14.8 g/dL 12.0-15.0 [facility] Blood lymphocytes/100 leukoc ytesOrdered By: Khoi King on 08-15-2023 Lymphocytes/100 WBC (Bld) 28.0 % 19-41 [facility] Blood monocytes/100 leukocyt esOrdered By: Khoi King on 08-15-2023 Monocytes/100 WBC (Bld) 7.0 % 0-10 [facility] Blood platelet mean volumeOr dered By: Khoi King on 08-15-2023 Platelet mean volume (Bld) [Entitic vol] 10.8 fL 6.2-12.0 [facility] Determination of erythrocyte mean corpuscular volume (MCV)Ordered By: Khoi King on 08-15-2023 MCV (RBC) [Entitic vol] 87.6 fL 81-99 [facility] HIV 1 and HIV-2 antibody ass ay with HIV-1 p24 antigen detectionOrdered By: Khoi King on 08-15-2023 HIV 1+2 Ab+HIV1 p24 Ag IA Ql Non-Reactive Nonreactive [facility] Hematocrit Auto (Bld) [Volum e fraction]Ordered By: Khoi King on 08-15-2023 Hematocrit (Bld) [Volume fraction] 42.2 % 37-47 [facility] - Hematology and Cell countsOrdered By: Khoi King on 08-15-2023 Erythrocyte distribution width (RBC) [Entitic vol] 40.5 fL 35.1-43.9 [facility] Erythrocyte distribution width (RBC) [Ratio] 12.6 % 11.6-14.6 [facility] Immature granulocytes/100 WBC (Bld) 0.400 % 0.0-0.9 [facility] Comment on above: IG% - Immature Granu locytes (promyelocytes, myelocytes and metamyelocytes) > 1% indicates that a LEFT SHIFT is Present. MCH (RBC) [Entitic mass] 30.7 pg 27.0-32.0 [facility] Nucleated RBC/100 WBC (Bld) [Ratio] 0 % 0-5 [facility] MCHC Auto (RBC) [Mass/Vol]Or dered By: Khoi King on 08-15-2023 MCHC (RBC) [Mass/Vol] 35.1 g/dL 32-36 [facility] No Panel InformationOrdered By: Khoi King on 08-15-2023 Hepatitis B Surface Antigen Non-Reactive Nonreactive [facility] Hepatitis C Antibody Non-Reactive Nonreactive [facility] Comment on above: Non Reactive: < 0.8 Equivocal: >/= 0.8 to < 1.0 Reactive: >/= 1.0The CDC recommends that a reactive/equivocal HCV antibody result be followed up by the HCV Nucleic Acid Amplificationtest (586385) Rubella IgG Antibody Reactive Nonreactive [facility] Comment on above: Antibody Results Int erpretation of Immune Status Non Reactive Presumed Non-Immune Equivocal Equivocal Reactive Presumed Immune Platelets bldOrdered By: Bernardo King on 08-15-2023 Platelets (Bld) [#/Vol] 282 10*3/uL 150-450 [facility] Serum Treponema species anti body detectionOrdered By: Khoi King on 08-15-2023 Treponema sp Ab Ql (S) Non-Reactive [facility] Serum or plasma choriogonado tropin detectionOrdered By: Khoi King on 08-15-2023 HCG ( test) [place]l [address] mIU/mL <4 [facility] Comment on above: hCG levels with Gest ational AgeGestational Age hCG mIU/mL (IU/L)0.2 - 1 week 5 - 501-2 weeks 50 - 5002-3 weeks 100 - 24630-3 weeks 500 - 515663-5 weeks 1000 - 264729-1 weeks 89445 - 100,0006-8 weeks 39667 - 200,0002-3 months 09867 - 100,000 Whole blood hemoglobin A1c/t otal hemoglobin ratio (mass fraction)Ordered By: Khoi King on 08-15-2023 HbA1c (Bld) [Mass fraction] 5.3 % 3.8-5.6 [facility] Comment on above: Normal < 5.7 % Predi abetic 5.7 - 6.4 % Diabetic >or= 6.5 % Please note range changes. HCG QUAL UR B/Oon 02-28-2023 status Negative neg - pos [facility] Quality Check Yes [facility] UA DIP, URINE (POC)on 2022 BILIRUBIN UA (POCT) Negative Negative [facility] CLARITY UA (POCT) Clear [facility] COLOR UA (POCT) Yellow [facility] GLUCOSE UA (POCT) Negative Negative mg/dL [facility] HEMOGLOBIN/BLOOD UA (POCT) Negative Negative [facility] KETONE UA (POCT) Negative Negative mg/dL [facility] LEUKOCYTES [facility] (POCT) [facility] NITRITE UA (POCT) Negative Negative [facility] PH UA (POCT) 5.5 4.5 - 8.0 [facility] Protein Ql (U) Negative Negative mg/dL [facility] SPECIFIC GRAVITY UA (POCT) 1.025 1.005 - 1.030 [facility] UROBILINOGEN UA (POCT) 0.2 E.U./dL Liana l E.U./dL [facility] Serum or plasma progesterone measurement (mass/volume)on 07-29-2022 Progesterone [Mass/Vol] 4.79 ng/mL See Comment [facility] Work Phone: Comment on above: Progesterone Referen ce Table: UNITS Female: Follicular 0.15 - 1.40 ng/mL Luteal 3.34 - 25.56 ng/mL Mid-luteal 4.44 - 28.03 ng/mL Postmenopausal 0.0 - 0.73 ng/mL : 1st Trimester 11.22 - 90.00 ng/mL 2nd Trimester 25.55 - 89.40 ng/mL 3rd Trimester 48.40 -422.50 ng/mL XR Pelvis and Hip - left AP and Lateral frogon 08-21-2020 IMPRESSION: Normal x-ray of the pelvis. 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 FINDINGS: No evidence of fracture, dislocation, or destructive process. Joint spaces are preserved. No demonstrated soft tissue abnormality. DIVISION OF RADIOLOGY Provider, [facility] - 08/21/2020 * * *Final Report* * * DATE OF EXAM: Aug 21 2020 2:38PM WOX [id number] - XR HIP 3V PELV+ AP/LAT LT / PROCEDURE REASON: Hip pain * * * * Physician Interpretation * * * * XR HIP 3V PELV+ AP/LAT LT HISTORY: Hip pain COMPARISON: None. FINDINGS: No evidence of fracture, dislocation, or destructive process. Joint spaces are preserved. No demonstrated soft tissue abnormality. IMPRESSION IMPRESSION: Normal x-ray of the pelvis. Workforce Development Vice President: [employer] Transcribe Date/Time: Aug 21 2020 3:14P Dictated by : DMITRY GALLEGO MD This examination was interpreted and the report reviewed and electronically signed by: DMITRY GALLEGO MD on Aug 21 2020 3:14PM EST [facility] Radiology Study observation (narrative) [facility] XR Pelvis and Hip - left AP and Lateral frogOrdered By: [facility] Provider on 08-21-2020 [facility] Vital Signs Date Time Vital Sign Value Performing Clinician Facility 01-31-2025 07:29-0400 Body mass index (BMI) [Ratio] 37.02 kg/m2 Adam Carbajal APRN.[employer] DIST[employer]BUTION SUPERVISOR Work Phone: [facility] 01-31-2025 07:29-0400 Body temperature 98.29 [degF] Adam Carbajal BOOKING CLERK.[employer] DISTRIBUTION SUPERVISOR Work Phone: [facility] 01-31-2025 07:29-0400 Body weight 107.2 kg Adam Carbajal APRN.[employer] DISTRIBUTION SUPERVISOR Work Phone: [facility] 01-31-2025 07:29-0400 Diastolic blood pressure 76 mm[Hg] Adam Carbajal BOOKING CLERK.GAS DISTRIBUTION SUPERVISOR Work Phone: [facility] 01-31-2025 07:29-0400 Heart rate 85 /min Adam Carbajal BOOKING CLERK.G[employer] DISTRIBUTION SUPERVISOR Work Phone: [facility] 01-31-2025 07:29-0400 Respiratory rate 18 /min Adam Carbajal APRN.[employer] DISTRIBUTION SUPERVISOR Work Phone: [facility] 01-31-2025 07:29-0400 SaO2% (BldA) [Mass fraction] 98 % Adam Carbajal BOOKING CLERK.GAS DISTRIBUTION SUPERVISOR Work Phone: [facility] 01-31-2025 07:29-0400 Systolic blood pressure 114 mm[Hg] Adam Carbajal APRN.G[employer] DISTRIBUTION SUPERVISOR Work Phone: [facility] 12-08-2024 12:45-0400 Heart rate 78 /min Dr. Norman Kaplan DO Work Phone: [facility] 12-08-2024 12:45-0400 Respiratory rate 18 /min Dr. Norman Kaplan DO Work Phone: [facility] 12-08-2024 12:45-0400 SaO2% (BldA) [Mass fraction] 98 % Dr. Norman Kaplan DO Work Phone: [facility] 12-08-2024 10:45-0400 Body height 157.[address] Norman Kaplan DO Work Phone: [facility] [facility] 12-08-2024 10:45-0400 Body mass index (BMI) [Ratio] 43.2 kg/m2 Dr. Norman Kaplan DO Work Phone: [facility] 12-08-2024 10:45-0400 Body temperature 97.4 [degF] Dr. Norman Kaplan DO Work Phone: [facility] 12-08-2024 10:45-0400 Body weight 107.[address] Norman Kaplan DO Work Phone: [facility] 12-08-2024 10:45-0400 Diastolic blood pressure 77 mm[Hg] Dr. Norman Kaplan DO Work Phone: [facility] 12-08-2024 10:45-0400 Systolic blood pressure 119 mm[Hg] Dr. Norman Kaplan DO Work Phone: [facility] 12-08-2024 10:28-0400 Body mass index (BMI) [Ratio] 36.22 kg/m2 Temitope Navarrete APRN.GAS DISTRIBUTION SUPERVISOR Work Phone: [facility] 12-08-2024 10:28-0400 Body temperature 98.01 [degF] Temitope Navarrete APRN.GAS DISTRIBUTION SUPERVISOR Work Phone: [facility] 12-08-2024 10:28-0400 Body weight 104.9 kg Temitope Navarrete APRN.GAS DISTRIBUTION SUPERVISOR Work Phone: [facility] 12-08-2024 10:28-0400 Diastolic blood pressure 72 mm[Hg] Temitope Navarrete APRN.GAS DISTRIBUTION SUPERVISOR Work Phone: [facility] 12-08-2024 10:28-0400 Heart rate 80 /min Temitope Navarrete APRN.GAS DISTRIBUTION SUPERVISOR Work Phone: [facility] 12-08-2024 10:28-0400 Respiratory rate 16 /min Temitope Navarrete APRN.GAS DISTRIBUTION SUPERVISOR Work Phone: [facility] 12-08-2024 10:28-0400 SaO2% (BldA) [Mass fraction] 99 % Temitope Navarrete APRN.GAS DISTRIBUTION SUPERVISOR Work Phone: [facility] 12-08-2024 10:28-0400 Systolic blood pressure 106 mm[Hg] Temitope Navarrete APRN.GAS DISTRIBUTION SUPERVISOR Work Phone: [facility] 10-08-2024 10:08-0500 Body mass index (BMI) [Ratio] 39.12 kg/m2 Ana Camejo APRN.GAS DISTRIBUTION SUPERVISOR Work Phone: [facility] 10-08-2024 10:08-0500 Body temperature 98.4 [degF] Ana Camejo APRN.GAS DISTRIBUTION SUPERVISOR Work Phone: [facility] 10-08-2024 10:08-0500 Body weight 113.3 kg Ana Camejo APRN.GAS DISTRIBUTION SUPERVISOR Work Phone: [facility] 10-08-2024 10:08-0500 Diastolic blood pressure 76 mm[Hg] Ana Camejo APRN.GAS DISTRIBUTION SUPERVISOR Work Phone: [facility] 10-08-2024 10:08-0500 Heart rate 96 /min Ana Camejo APRN.GAS DISTRIBUTION SUPERVISOR Work Phone: [facility] 10-08-2024 10:08-0500 Respiratory rate 16 /min Ana Camejo APRN.GAS DISTRIBUTION SUPERVISOR Work Phone: [facility] 10-08-2024 10:08-0500 SaO2% (BldA) [Mass fraction] 97 % Ana Camejo BOOKING CLERK.GAS DISTRIBUTION SUPERVISOR Work Phone: [facility] 10-08-2024 10:08-0500 Systolic blood pressure 110 mm[Hg] Ana Camejo BOOKING CLERK.GAS DISTRIBUTION SUPERVISOR Work Phone: [facility] 06-04-2024 15:38-0400 Body mass index (BMI) [Ratio] 37.59 kg/m2 Monica Gerard BOOKING CLERK.GAS DISTRIBUTION SUPERVISOR Work Phone: [facility] 06-04-2024 15:38-0400 Body weight 108.86 kg Monica Gerard BOOKING CLERK.GAS DISTRIBUTION SUPERVISOR Work Phone: [facility] 06-04-2024 15:38-0400 Diastolic blood pressure 72 mm[Hg] Monica Gerard BOOKING CLERK.GAS DISTRIBUTION SUPERVISOR Work Phone: [facility] 06-04-2024 15:38-0400 Heart rate 87 /min Monica Gerard BOOKING CLERK.GAS DISTRIBUTION SUPERVISOR Work Phone: [facility] 06-04-2024 15:38-0400 Respiratory rate 16 /min Monica Gerard BOOKING CLERK.GAS DISTRIBUTION SUPERVISOR Work Phone: [facility] 06-04-2024 15:38-0400 SaO2% (BldA) [Mass fraction] 99 % Monica Gerard BOOKING CLERK.GAS DISTRIBUTION SUPERVISOR Work Phone: [facility] 06-04-2024 15:38-0400 Systolic blood pressure 126 mm[Hg] Monica Haagen BOOKING CLERK.GAS DISTRIBUTION SUPERVISOR Work Phone: [facility] 12-11-2023 08:33-0400 Body height 160.02 cm PA NA Collins PA Work Phone: [facility] 12-11-2023 08:33-0400 Body mass index (BMI) [Ratio] 43.4 kg/m2 PA NA Collins PA Work Phone: [facility] 12-11-2023 08:33-0400 Body weight 111.24 kg PA NA Collins PA Work Phone: [facility] 12-11-2023 08:33-0400 Diastolic blood pressure 78 mm[Hg] PA NA Collins PA Work Phone: [facility] 12-11-2023 08:33-0400 Systolic blood pressure 120 mm[Hg] PA NA Collins PA Work Phone: [facility] 12-04-2023 12:52-0400 Body weight 111.13 kg NA Collins PA-C Work Phone: [facility] 12-04-2023 12:52-0400 Diastolic blood pressure 60 mm[Hg] NA Collins PA-C Work Phone: [facility] 12-04-2023 12:52-0400 Heart rate 85 /min NA Collins PA-C Work Phone: [facility] 12-04-2023 12:52-0400 Respiratory rate 16 /min NA Collins PA-C Work Phone: [facility] 12-04-2023 12:52-0400 SaO2% (BldA) [Mass fraction] 98 % NA Collins PA-C Work Phone: [facility] 12-04-2023 12:52-0400 Systolic blood pressure 104 mm[Hg] NA Collins PA-C Work Phone: [facility] 11-16-2023 12:01-0400 Body mass index (BMI) [Ratio] 43.2 kg/m2 PA NA Collins PA Work Phone: [facility] 11-16-2023 12:01-0400 Body weight 110.67 kg PA NA Collins PA Work Phone: [facility] 11-16-2023 12:01-0400 Diastolic blood pressure 75 mm[Hg] PA NA Collins PA Work Phone: [facility] 11-16-2023 12:01-0400 Systolic blood pressure 116 mm[Hg] PA NA Collins PA Work Phone: [facility] 10-16-2023 14:22-0500 Body mass index (BMI) [Ratio] 42.5 kg/m2 PA NA Collins PA Work Phone: 8(498)928-[address]115 [place] [address] 10-16-2023 14:22-0500 Body weight 108.91 kg PA NA Collins PA Work Phone: 7(243)744-987788 [place] [address] 10-16-2023 14:22-0500 Diastolic blood pressure 72 mm[Hg] PA NA Collins PA Work Phone: 8(479)838-818488 [place] [address] 10-16-2023 14:22-0500 Systolic blood pressure 124 mm[Hg] PA NA Collins PA Work Phone: 9(871)361-948188 [place] [address] 09-19-2023 14:58-0500 Body height 160.02 cm PA NA Collins PA Work Phone: 7(328)394-003488 [place] [address] 09-19-2023 14:58-0500 Body mass index (BMI) [Ratio] 41.6 kg/m2 PA NA Collins PA Work Phone: 0(424)040-043588 [place] [address] 09-19-2023 14:58-0500 Diastolic blood pressure 75 mm[Hg] PA NA Collins PA Work Phone: 1(906)234-285088 [place] [address] 09-19-2023 14:58-0500 Systolic blood pressure 114 mm[Hg] PA NA Collins PA Work Phone: 4(366)384-269588 [place] [address] 09-19-2023 14:42-0500 Body weight 106.7 kg PA NA Collins PA Work Phone: 6(229)795-694288 [place] [address] 08-24-2023 13:18-0500 Body height 160.02 cm PA NA Collins PA Work Phone: 4([phone])229-068588 [place] [address] 08-24-2023 13:17-0500 Body mass index (BMI) [Ratio] 42.7 kg/m2 PA NA Collins PA Work Phone: 4(659)184-295188 [place] [address] 08-24-2023 13:17-0500 Body weight 109.48 kg PA NA Collins PA Work Phone: 8(636)783-997188 [place] [address] 08-24-2023 13:17-0500 Diastolic blood pressure 69 mm[Hg] KERRY PAYNE Work Phone: [facility] 08-24-2023 13:17-0500 Systolic blood pressure 118 mm[Hg] KERRY PAYNE Work Phone: [facility] 04-09-2023 09:28-0400 Body temperature 98.49 [degF] Zelda Sonya BOOKING CLERK.GAS DISTRIBUTION SUPERVISOR Work Phone: [facility] 04-09-2023 09:28-0400 Body weight 108.05 kg Zelda Sonya BOOKING CLERK.GAS DISTRIBUTION SUPERVISOR Work Phone: [facility] 04-09-2023 09:28-0400 Diastolic blood pressure 82 mm[Hg] Zelda Sonya BOOKING CLERK.GAS DISTRIBUTION SUPERVISOR Work Phone: [facility] 04-09-2023 09:28-0400 Heart rate 100 /min Zelda Sonya BOOKING CLERK.GAS DISTRIBUTION SUPERVISOR Work Phone: [facility] 04-09-2023 09:28-0400 Respiratory rate 21 /min Zelda Sonya BOOKING CLERK.GAS DISTRIBUTION SUPERVISOR Work Phone: [facility] 04-09-2023 09:28-0400 SaO2% (BldA) [Mass fraction] 99 % Zelda Sonya BOOKING CLERK.GAS DISTRIBUTION SUPERVISOR Work Phone: [facility] 04-09-2023 09:28-0400 Systolic blood pressure 122 mm[Hg] Zelda Sonya BOOKING CLERK.GAS DISTRIBUTION SUPERVISOR Work Phone: [facility] 02-28-2023 07:24-0400 Body temperature 97.81 [degF] Magy Millerler-Wood BOOKING CLERK.GAS DISTRIBUTION SUPERVISOR Work Phone: [facility] 02-28-2023 07:24-0400 Body weight 108.86 kg Magy Pracherrie-Osiel BOOKING CLERK.GAS DISTRIBUTION SUPERVISOR Work Phone: [facility] 02-28-2023 07:24-0400 Diastolic blood pressure 74 mm[Hg] Magy Praisler-Wood BOOKING CLERK.GAS DISTRIBUTION SUPERVISOR Work Phone: [facility] 02-28-2023 07:24-0400 Heart rate 88 /min Magy Praisler-Wood BOOKING CLERK.GAS DISTRIBUTION SUPERVISOR Work Phone: [facility] 02-28-2023 07:24-0400 Respiratory rate 16 /min Magy Praisler-Wood BOOKING CLERK.GAS DISTRIBUTION SUPERVISOR Work Phone: [facility] 02-28-2023 07:24-0400 SaO2% (BldA) [Mass fraction] 98 % Magy Praisler-Wood BOOKING CLERK.GAS DISTRIBUTION SUPERVISOR Work Phone: [facility] 02-28-2023 07:24-0400 Systolic blood pressure 122 mm[Hg] Magy Praisler-Wood BOOKING CLERK.GAS DISTRIBUTION SUPERVISOR Work Phone: [facility] 01-13-2022 12:39-0400 Body temperature 98.6 [degF] Zelda Sonya BOOKING CLERK.GAS DISTRIBUTION SUPERVISOR Work Phone: [facility] 01-13-2022 12:39-0400 Body weight 113.4 kg Zelda Sonya BOOKING CLERK.GAS DISTRIBUTION SUPERVISOR Work Phone: [facility] 01-13-2022 12:39-0400 Diastolic blood pressure 66 mm[Hg] Zelda Sonya BOOKING CLERK.GAS DISTRIBUTION SUPERVISOR Work Phone: [facility] 01-13-2022 12:39-0400 Heart rate 102 /min Zelda Sonya BOOKING CLERK.GAS DISTRIBUTION SUPERVISOR Work Phone: [facility] 01-13-2022 12:39-0400 Respiratory rate 16 /min Zelda Sonya BOOKING CLERK.GAS DISTRIBUTION SUPERVISOR Work Phone: [facility] 01-13-2022 12:39-0400 SaO2% (BldA) [Mass fraction] 97 % Zelda Sonya BOOKING CLERK.GAS DISTRIBUTION SUPERVISOR Work Phone: [facility] 01-13-2022 12:39-0400 Systolic blood pressure 118 mm[Hg] Zelda Sonya BOOKING CLERK.GAS DISTRIBUTION SUPERVISOR Work Phone: [facility] Encounters Encounter Date Encounter Type Care Provider Facility Start: 02-25-2025 ambulatory Facility:1 [id number] Start: 01-31-2025 End: 01-31-2025 Office outpatient visit 15 minutes Adam Carbajal APRN.GAS DISTRIBUTION SUPERVISOR Work Phone: [facility] Comment on above: Hand foot and mouth disease (Primary Dx) Start: 01-31-2025 End: 01-31-20[facility] Start: 01-19-2025 End: 01-20-2025 Refill Monica Gerard APRN.GAS DISTRIBUTION SUPERVISOR Work Phone: [facility] Comment on above: Refill Request Start: 12-08-2024 End: 12-08-2024 Emergency department patient visit Dr. Norman Kaplan DO Work Phone: -Emergency Department Work Phone: Start: 12-08-2024 End: 12-08-2024 ambulatory MARK COLLINS Facility:[facility] Start: 12-08-2024 End: 12-08-2024 Patient encounter procedure Temitope Navarrete APRN.GAS DISTRIBUTION SUPERVISOR Work Phone: [facility] Comment on above: Headache, unspecifie d headache type (Primary Dx); Vomiting and diarrhea Start: 10-08-2024 End: 10-08-2024 Subsequent hospital visit by physician Génesis [facility] Work Phone: Radiology Comment on above: Acute cough [R05.1] Start: 10-08-2024 End: 10-08-2024 ambulatory [facility] Facility:[facility] Start: 10-08-2024 End: 10-08-2024 Patient encounter procedure Ana Camejo APRN.GAS DISTRIBUTION SUPERVISOR Work Phone: [facility] Comment on above: Community acquired p neumonia, unspecified laterality (Primary Dx); Acute cough Start: 10-03-2024 End: 10-04-2024 Telephone encounter Monica Gerard APRN.CNP Work Phone: [facility] Comment on above: FMLA Paperwork (Due by 10/05/24) Start: 06-04-2024 End: 06-04-2024 Office outpatient visit 25 minutes Monica Gerard APRN.CNP Work Phone: [facility] Comment on above: Adjustment reaction with anxiety and depression (Primary Dx); Need for influenza vaccination; Gastritis with hemorrhage, unspecified chronicity, unspecified gastritis type; Hypothyroidism, acquired Start: 06-04-2024 End: 06-04-2024 ambulatory MARK COLLINS Facility:[facility] Start: 05-10-2024 End: 05-10-2024 ambulatory Bushra PAYNE Facility:[facility] Start: 04-10-2024 End: 04-10-2024 ambulatory Bushra PAYNE Facility:[facility] Start: 03-26-2024 ambulatory Bushra PAYNE Fac ility:[facility] Start: 03-25-2024 End: 03-25-2024 ambulatory Bushra PAYNE Facility:[facility] Start: 03-21-2024 ambulatory Bushra PAYNE Fac ility:[facility] Start: 03-20-2024 ambulatory Khoi King Facility :[facility] Start: 03-20-2024 End: 03-23-2024 Evaluation and management of inpatient Gudelia Pang [place] Facility:[facility] Start: 03-19-2024 End: 03-19-2024 ambulatory Bushra PAYNE Facility:[facility] Start: 03-14-2024 End: 03-14-2024 ambulatory MARK COLLINS [facility] Start: 03-14-2024 End: 03-14-2024 ambulatory Bushra PAYNE Facility:[facility] Start: 03-13-2024 End: 03-13-2024 Emergency department patient visit Bushra PAYNE Facility:[facility] Start: 03-13-2024 Telephone encounter Bushra Collins PA-C Work Phone: [facility] Comment on above: Patient Question Start: 03-11-2024 End: 03-11-2024 ambulatory Bushra PAYNE Facility:[facility] Start: 03-06-2024 End: 03-06-2024 ambulatory Bushra PAYNE Facility:[facility] Start: 03-06-2024 End: 03-06-2024 ambulatory Bushra PAYNE Facility:[facility] Start: 02-29-2024 End: 02-29-2024 ambulatory Bushra PAYNE Facility:[facility] Start: 02-22-2024 End: 02-22-2024 ambulatory Bushra PAYNE Facility:[facility] Start: 02-15-2024 End: 02-15-2024 ambulatory MARK GÓMEZORY DENNIS [facility] Start: 02-13-2024 End: 02-13-2024 ambulatory Bushra PAYNE Facility:[facility] Start: 02-08-2024 End: 02-08-2024 ambulatory Bushra PAYNE Facility:[facility] Start: 01-23-2024 End: 01-23-2024 ambulatory Bushra PAYNE Facility:[facility] Start: 01-18-2024 End: 01-18-2024 ambulatory MARK BROWNING COLLINS [facility] Start: 01-12-2024 End: 01-12-2024 ambulatory Bushra PAYNE Facility:[facility] Start: 01-09-2024 End: 01-09-2024 ambulatory Bushra PAYNE Facility:[facility] Start: 12-21-2023 End: 12-21-2023 ambulatory MARK GÓMEZORY COLLINS [facility] Start: 12-11-2023 End: 12-11-2023 ambulatory KERRY PAYNE Work Phone: [facility] Work Phone: Start: 12-11-2023 End: 12-11-2023 Patient encounter procedure KERRY PAYNE Work Phone: [facility] Work Phone: Start: 12-04-2023 End: 12-04-2023 Patient encounter procedure Bushra KIMC Work Phone: [facility] Comment on above: Female infertility a ssociated with anovulation (Primary Dx); PCOS (polycystic ovarian syndrome); Passive suicidal ideations; ABHILASH (generalized anxiety disorder); Insomnia, unspecified type; Adjustment reaction with anxiety and depression; Obesity, Class III, BMI >= 40; Chronic left hip pain; Vitamin D deficiency Start: 11-20-2023 End: 11-20-2023 ambulatory CAREY NASSAR [facility]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 information to criminally investigate or prosecute any alcohol or drug abuse patient.[facility] HospitalIn the event this information is protected by the Federal Confidentiality of Alcohol and Drug Abuse Patient Records regulations: The Federal rules restrict any use of the information to criminally investigate or prosecute any alcohol or drug abuse patient.[facility] HospitalIn the event this information is protected by the Federal Confidentiality of Alcohol and Drug Abuse Patient Records regulations: The Federal rules restrict any use of the information to criminally investigate or prosecute any alcohol or drug abuse patient.[facility] HospitalIn the event this information is protected by the Federal Confidentiality of Alcohol and Drug Abuse Patient Records regulations: The Federal rules restrict any use of the information to criminally investigate or prosecute any alcohol or drug abuse patient.[facility] HospitalIn the event this information is protected by the Federal Confidentiality of Alcohol and Drug Abuse Patient Records regulations: The Federal rules restrict any use of the information to criminally investigate or prosecute any alcohol or drug abuse patient.[facility] HospitalIn the event this information is protected by the Federal Confidentiality of Alcohol and Drug Abuse Patient Records regulations: The Federal rules restrict any use of the information to criminally investigate or prosecute any alcohol or drug abuse patient.[facility] HospitalIn the event this information is protected by the Federal Confidentiality of Alcohol and Drug Abuse Patient Records regulations: The Federal rules restrict any use of the information to criminally investigate or prosecute any alcohol or drug abuse patient.[facility] HospitalIn the event this information is protected by the Federal Confidentiality of Alcohol and Drug Abuse Patient Records regulations: The Federal rules restrict any use of the information to criminally investigate or prosecute any alcohol or drug abuse patient.[facility] HospitalIn the event this information is protected by the Federal Confidentiality of Alcohol and Drug Abuse Patient Records regulations: The Federal rules restrict any use of the information to criminally investigate or prosecute any alcohol or drug abuse patient.[facility] HospitalIn the event this information is protected by the Federal Confidentiality of Alcohol and Drug Abuse Patient Records regulations: The Federal rules restrict any use of the information to criminally investigate or prosecute any alcohol or drug abuse patient.[facility] Care Teams (unrecognized sec tion and content) Informatics Nurse Relationship Specialty Start Date End Date Bushra Collins PA-C [address] [place] [address] PCP - General Family Practice 05/21/18 Informatics Nurse Relationship Specialty Start Date End Date Bushra Collins PA-C [address] [place] [address] PCP - General Family Practice 05/21/18 Informatics Nurse Relationship Specialty Start Date End Date Bushra Collins PA-C [address] [place] [address] PCP - General Family Practice 05/21/18 Informatics Nurse Relationship Specialty Start Date End Date Bushra Collins PA-C [address] [place] [address] PCP - General Family Medicine 05/21/18 Informatics Nurse Relationship Specialty Start Date End Date Bushra Collins PA-C [address] [place] [address] PCP - General Family Medicine 05/21/18 Informatics Nurse Relationship Specialty Start Date End Date Bushra Collins PA-C [address] [place] [address] PCP - General Family Medicine 05/21/18 Informatics Nurse Relationship Specialty Start Date End Date Bushra Collins PA-C [address] [place] [address] PCP - General Family Medicine 05/21/18 Informatics Nurse Relationship Specialty Start Date End Date Bushra Collins PA-C [address] [place] [address] PCP - General Family Medicine 05/21/18 Informatics Nurse Relationship Specialty Start Date End Date Bushra Collins PA-C [address] [place], [place] [id number] PCP - General Family Medicine 05/21/18 Informatics Nurse Relationship Specialty Start Date End Date Bushra Collins PA-C [address] [place], [place] [address] PCP - General Family Medicine 05/21/18 Informatics Nurse Relationship Specialty Start Date End Date Bushra Collins PA-C [address] [place] [address] PCP - General Family Medicine 05/21/18 Informatics Nurse Relationship Specialty Start Date End Date Bushra Collins PA-C [address] [place] [address] PCP - General Family Medicine 05/21/18 Team Status: Active Member Role Status Dates No Primary Care Physician Family Provider Active KERRY Estrella Primary Care Provider Active Team Status: Inactive Member Role Status Dates KERRY Estrella Primary Care Provider, Referri ng Provider Active Khoi King CNM Attending Provider Active Team Status: Inactive Member Role Status Dates KERRY Estrella Primary Care Provider Active Khoi King CNM Attending Provider, Referring Pro vider Active Informatics Nurse Relationship Specialty Start Date End Date Bushra Collins PA-C [address] [place] [address] PCP - General Family Medicine 05/21/18 Team Status: Inactive Member Role Status Dates KERRY Estrella Primary Care Provider, Referri ng Provider Active Albertina Wilkerson NP, HAND GLOVE CLEANER-C Attending Provider Active Team Status: Inactive Member Role Status Dates KERRY Estrella Primary Care Provider, Referri ng Provider Active Dr. Carey Nassar MD Attending Provider Active Team Status: Inactive Member Role Status Dates KERRY Estrella Primary Care Provider Active Dr. Carey Nassar MD Attending Provider, Referr ing Provider Active Informatics Nurse Relationship Specialty Start Date End Date Bushra Collins PA-C [address] [place] [address] PCP - General Family Medicine 05/21/18 Informatics Nurse Relationship Specialty Start Date End Date Bushra Collins PA-C [address] [place] [address] PCP - General Family Medicine 05/21/18 Informatics Nurse Relationship Specialty Start Date End Date Bushra Collins PA-C [address] [place] [address] PCP - General Family Medicine 05/21/18 Informatics Nurse Relationship Specialty Start Date End Date Mark Collins PA-C PCP - General Family Medicine 05/21/18 Monica Gerard, BOOKING CLERK.GAS DISTRIBUTION SUPERVISOR [address] [place] [address] [facility] 08/09/24 Daja Preston, BOOKING CLERK.GAS DISTRIBUTION SUPERVISOR [address] [place] [address] [facility] 08/09/24 Informatics Nurse Relationship Specialty Start Date End Date Monica Gerard, BOOKING CLERK.GAS DISTRIBUTION SUPERVISOR [address] [facility], [place] [address] [phone] [facility] 08/09/24 Daja Preston, BOOKING CLERK.GAS DISTRIBUTION SUPERVISOR [address] [facility], [place] [address] [phone] [facility] Informatics Nurse Relationship Specialty Start Date End Date Monica Gerard, BOOKING CLERK.GAS DISTRIBUTION SUPERVISOR [address] [facility], [place] [address] [phone] [facility] 08/09/24 Daja Preston BOOKING CLERK.GAS DISTRIBUTION SUPERVISOR [address] [place] [address] [facility] 08/09/24 Team Status: Active Member Role Status Dates No Primary Care Physician Primary Care Provider Active Team Status: Inactive Member Role Status Dates Dr. Norman Kaplan , DO Emergency Provider Active Start: December 08, 2024 End: December 08, 2024 No Primary Care Physician Primary Care Provider Active Start: December 08, 2024 End: December 08, 2024 Informatics Nurse Relationship Specialty Start Date End Date Monica Gerard, BOOKING CLERK.GAS DISTRIBUTION SUPERVISOR [address] [place] [address] [facility] 08/09/24 Daja Preston, BOOKING CLERK.GAS DISTRIBUTION SUPERVISOR [address] [facility], [place] [address] [phone] [facility] 08/09/24 Informatics Nurse Relationship Specialty Start Date End Date Monica Gerard, BOOKING CLERK.GAS DISTRIBUTION SUPERVISOR [address] [facility], [place] [address] [phone] [facility] 08/09/24 Daja Preston BOOKING CLERK.GAS DISTRIBUTION SUPERVISOR [address] [place], [place] [address] [facility] 08/09/24 Informatics Nurse Relationship Specialty Start Date End Date Monica Gerard BOOKING CLERK.GAS DISTRIBUTION SUPERVISOR [address] [place], [place] [id number] [facility] 08/09/24 Daja Preston BOOKING CLERK.GAS DISTRIBUTION SUPERVISOR [address] [place], [place] [id number] [facility] 08/09/24 Reason for Visit (unrecogniz ed section and content) Reason Comments Rash left leg and foot x 3 days, scraped on bottom of pool, itching Reason Comments Forms FMLA Reason Comments Hives Reason Onset Date Comments Refill Request 12/13/2022 Reason Comments Acute Visit Reason Comments Results Reason Comments Pelvic Pain frequent urination x last night Specialty Diagnoses / Procedures Referred By Contac t Referred To Contact Emergency Medicine / [facility] Diagnoses pelvic pain since last night (cramping feeling) Procedures EST SAME DAY Bushra Collins PA-C [address] [place] [address] Magy Stein, BOOKING CLERK.GAS DISTRIBUTION SUPERVISOR [address] [place] [address] Referral ID Status Reason Start Date Expiration Date Visits Re quested Visits Authorized [id number] Closed 02/28/2023 09/03/2023 1 1 Reason Comments Cough Sob, sinus drainage, wheezing x 3 days Reason Comments requesting lab order Reason Comments Patient Question Reason Comments Follow Up 6 month Specialty Diagnoses / Procedures Referred By Contac t Referred To Contact Family Medicine / [facility]ILY [facility]IC[facility] Diagnoses Follow-up examination 6 month f/u Procedures OFFICE/OUTPATIENT ESTABLISHED MOD MDM 30 MIN 4C EST Bushra Collins PA-C [address] [place] [address] Bushra Collins PA-C [address] [place] [address] Referral ID Status Reason Start Date Expiration Date Visits Re quested Visits Authorized [id number] Closed 12/04/2023 09/03/2024 1 1 Reason Onset Date Comments 6 Month Exam Immunizations 06/04/2024 Flu vaccination Specialty Diagnoses / Procedures Referred By Contac t Referred To Contact Family Medicine / FAMILY MEDICINE Diagnoses Female infertility associated with anovulation 6 month follow up Procedures OFFICE/OUTPATIENT ESTABLISHED MOD MDM 30 MIN 4C EST Self Bushra Collins PA-C [address] [place] [address] Referral ID Status Reason Start Date Expiration Date Visits Re quested Visits Authorized [id number] Closed 06/04/2024 09/03/2024 1 1 Reason Comments FMLA Paperwork Due by 10/05/24 Reason Comments Chest Congestion cough, sob and heada quique x 5 days, increased x 1 day Specialty Diagnoses / Procedures Referred By Contac t Referred To Contact Family [facility] / [facility] Diagnoses Cough cough, chest congestion, sob, headache Procedures OFFICE/OUTPATIENT ESTABLISHED MOD MDM 30 MIN EST SAME DAY [facility]cpSun APRN King, Jonathan, APRN.GAS DISTRIBUTION SUPERVISOR [address] [place] [address] Referral ID Status Reason Start Date Expiration Date Visits Re quested Visits Authorized [id number] Closed 10/08/2024 09/03/2025 1 1 Specialty Diagnoses / Procedures Referred By Contac t Referred To Contact Radiology / [facility] Diagnoses Cough xr chest rm 1 Procedures RADIOLOGIC EXAM CHEST 2 VIEWS XR CHEST Ana Camejo APRN.GAS DISTRIBUTION SUPERVISOR [address] [place] [address] [facility] [address] [place] [address] Referral ID Status Reason Start Date Expiration Date Visits Re quested Visits Authorized [id number] Closed 10/08/2024 09/03/2025 1 1 Reason Comments Diarrhea Vomiting and LYON x 3 days, patient thinks she has the flu and is dehydrated Reason Onset Date Comments Refill Request 01/19/2025 Reason Comments Rash HFM x2 days Goals (unrecognized section and content) Goals may be documented in a n alternate sectionGoals may be documented in an alternate sectionGoals may be documented in an alternate sectionGoals may be documented in an alternate sectionGoals may be documented in an alternate sectionGoals may be documented in an alternate section INFORMATION SOURCE (unrecogn ized section and content) DATE CREATED AUTHOR 03/20/2024 [facility] DATE CREATED AUTHOR AUTHOR'S ORGANIZ ATION 12/14/2024 [facility] DATE CREATED AUTHOR AUTHOR'S ORGANIZ ATION 02/02/2025 [facility] DATE CREATED AUTHOR AUTHOR'S ORGANIZ ATION 02/26/2025 [facility] Ce nter FOR RECORDS PERTAINING TO PATIENTS WHO ARE OR HAVE BEEN ENROLLED IN A CHEMICAL DEPENDENCY/SUBSTANCEABUSE PROGRAM, SOME INFORMATION MAY BE OMITTED. This clinical summary was aggregated from multiple sources. Caution should be exercised in using it in the provision of clinical care. This summary normalizes information from multiple sources, and as a consequence, information in this document may materially change the coding, format and clinical context of patient data. In addition, data may be omitted in some cases. CLINICAL DECISIONS SHOULD BE BASED ON THE PRIMARY CLINICAL RECORDS. [facility]. provides no warranty or guarantee of the accuracy or completeness of information in this document.
== END | disposition home or self-care (01) ==
LOC: VSLAB 13:41
DX: Z13.6 Encounter for screening for cardiovascular disorders (principal); Z13.1 Encounter for screening for diabetes mellitus; E55.9 Vitamin D deficiency, unspecified; Z13.220 Encounter for screening for lipoid disorders
CPT/HCPCS: 36415; 80053; 80061; 82306; 83036; 84443; 85025

== ENCOUNTER → 2025-02-27 | Outpatient (CLI) | payer OTHER, SELFPAY ==
[2025-02-27 16:55] LABS: T4 Total, Thyroxin 6.1 ug/dL (4.8-13.9)
[2025-03-03 15:08] LABS: Thyroglobulin Antibody 3.8 IU/mL (0.0-0.9); Thyroid Peroxidase AB 348 IU/mL (0-34)
== END | disposition home or self-care (01) ==
LOC: VSLAB 15:25
DX: R94.6 Abnormal results of thyroid function studies (principal)
CPT/HCPCS: 36415; 84436; 84439; 86376; 86800

== ENCOUNTER 2025-02-28 18:47 | Inpatient (IN) | payer OTHER, SELFPAY ==
[2025-02-28 18:49] VITALS: BP 130/88; PULSE 82; RESP 16; TEMP 36.9; O2SAT 100; BMI 40.6
[2025-02-28 18:52] VITALS: BP 124/67; PULSE 80; RESP 18; O2SAT 100
--- NOTE | 2025-02-28 20:50 | EX.ED.DYSGE1 ---
HPI History of Present Illness Chief Complaint: Cellulitis Detail of Chief Complaint: Wounds/rash Informant: patient Narrative Narrative: Patient with wounds that she thought were bug bites that started on February 19. Subsequently developed surrounding erythema. She was seen at [facility] in [place] and diagnosed with MRSA by simple observation and was started on Bactrim 3 days ago. She continues to get new lesions and does not feel like she is responding to treatment. She denies fevers or chills or sweats. 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 The lesions are mostly involving her lower extremities. [facility] Medical History Family history of hearing loss at age younger than 7 years Thyroid disorder DVT (deep venous thrombosis) Superficial varicosities Headache Cephalgia Bleeding in early Seasonal allergies History of DVT of lower extremity Anovulation HISTORY OF PLANTERS WART REMOVAL NECK AND BACK PAIN Difficulty balancing Depression with anxiety Knee pain Shoulder pain Shortness of breath Home Medications ?Medication ?Instructions ?Recorded ?Last Taken ?Type sertraline 100 mg tablet (Zoloft) 100 mg PO DAILY 02/14/22 03/19/24 20:00 History 100 mg albuterol sulfate 90 mcg/actuation 2 puff inhalation Q6H PRN asthma 08/15/23 Unknown History aerosol inhaler metformin 500 mg tablet 500 mg PO DAILY 08/15/23 03/19/24 18:00 History 500 mg multivitamin no.47-iron fum 27 1 cap PO DAILY 08/15/23 03/19/24 08:00 History mg-folate no.1 1 mg-dha 300 mg capsule (PNV-DHA) enoxaparin 40 mg/0.4 mL 60 mg (0.6 mL) subcut Q24H 6 weeks 03/23/24 Unknown Rx subcutaneous syringe (Lovenox) #25.2 mL cholecalciferol (vitamin D3) 50 50 mcg PO QDAY 05/10/24 Unknown History mcg (2,000 unit) capsule Allergy/AdvReac Type Severity Reaction Status Date / Time bacitracin (From Neosporin Allergy Intermediate Rash Verified 02/28/25 18:49 ([id number])) neomycin (From Neosporin Allergy Intermediate Rash Verified 02/28/25 18:49 ([id number])) polymyxin B (From Neosporin Allergy Intermediate Rash Verified 02/28/25 18:49 ([id number])) latex Allergy Rash Verified 02/28/25 18:49 banana AdvReac Nausea Verified 02/28/25 18:49 Family History Father Seizures Chiari malformation Lupus Sister PCOS (polycystic ovarian syndrome) Aunt PCOS (polycystic ovarian syndrome) Family history of recurrent miscarriage Mother Family history of recurrent miscarriage 2 miscarriges Surgical History History of surgery History of tonsillectomy and adenoidectomy Social History adopted: No household members: spouse number of children: 1 current occupational status: employed current occupation: [employer] pets and animals: Yes (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) pets and animals: cat(s) history of recent travel: Yes ([employer] at [place]) out of state: Yes out of country: No sexually active: Yes Smoking Status: Never smoker alcohol intake: current alcohol intake frequency: holidays/special occasions only details: not while substance use type: does not use diet: other well-balanced diet: daily or most days caffeine: Yes Type: coffee Number of servings: 1 eating out: 1-3 times/week during the past year weight has: decreased > 10 lbs what type of physical activity do you participate in: swimming frequency: 3-4 times per week song/holiness: Orthodox seatbelt use: always do you feel safe at home: Yes additional social history: - [employer] ROS ROS ED Review of Systems ROS Unobtainable: other Constitutional Constitutional ED: Reports lethargy; Denies chills, fever(s), sweats or weight loss Eyes Eyes: Denies blurry vision, change in vision or diplopia ENT ENT ED: Denies rhinorrhea or sore throat Cardiovascular Cardiovascular: Denies chest pain, orthopnea or racing heartbeat Respiratory/Chest Respiratory/Chest: Denies cough, dyspnea, dyspnea on exertion, orthopnea or sputum Gastrointestinal Gastrointestinal: Denies abdominal pain, diarrhea, nausea or vomiting Genitourinary Genitourinary ED: Denies dysuria, hematuria or urinary frequency Musculoskeletal Musculoskeletal: Denies arthralgias, back pain, myalgias or neck pain Integumentary Reports rash; Denies abscess or Abrasions Neurologic Neurologic: Denies headache(s) or weakness Psychiatric Psychiatric: Denies anxiety, depression or suicidal thoughts Endocrine Endocrinology: Denies polydipsia, polyphagia or polyuria Hematologic/Lymphatic Hematologic/Lymphatic: Denies easy bleeding, easy bruising or lymphadenopathy Allergic/Immunologic Allergic/Immunologic ED: Denies mouth swelling, tongue swelling or urticaria EXAM Physical Exam Const Vital Signs: 02/28/25 18:49 02/28/25 18:52 Temperature 98.5 F Temperature Source Oral Pulse Rate 82 80 Respiratory Rate 16 18 Blood Pressure 130/88 H 124/67 H Blood Pressure Mean 102 86 Pulse Ox 100 100 Oxygen Delivery Method Room Air Room Air Positive well nourished and well developed General Appearance ED: well developed and NAD HEENT Reports TM's clear and moist mucous membranes normocephalic and atraumatic; Negative for trauma or tenderness Tympanic Membrane ED: Yes TM's clear Eyes PERRL and EOMs intact bilaterally General Eye ED: Negative for pale conjunctiva or scleral icterus Neck no lymphadenopathy, supple and no JVD General: Negative for tenderness Chest Wall inspection of chest normal and palpation of chest normal Chest: Negative for tenderness Resp normal respiratory effort and clear to auscultation bilaterally Effort and Inspection: Negative for respiratory distress or pain with movement Auscultation: Negative for rhonchi, wheezes or diminished lung sounds Cardio regular rate, regular rhythm, S1 normal heart sound, S2 normal heart sound and no murmurs Peripheral Pulses: pulses 2+ throughout GI normal to inspection, nondistended, normoactive bowel sounds, soft to palpation, non-tender, non-distended and no masses Back/Spine no CVA tenderness and no thoracic nor lumbar tenderness Extremity Extremity Narrative: Patient with multiple lesions to both lower extremities that are excoriated with central necrosis and surrounding erythema. Involvement includes the posterior thighs bilaterally. No involvement of the trunk or upper extremities. General Extremety ED: Negative for edema General Extremity: Negative for edema Neuro oriented x3, CN's II-XII intact bilaterally, no sensory deficits noted and gait normal Sensorium / Orientation: awake, alert, oriented to person, oriented to place and oriented to time Motor Exam: strength 5/5 throughout and strength abnormal Psych mental status grossly normal Skin no rashes or lesions noted and no wounds MDM MDM MDM Narrative Medical decision making narrative: Patient with lesions to both lower extremities x 9 days. Currently on Bactrim apparently not responding well. Will obtain labs as well as MRSA culture and wound culture. CBC with differential obtained showed a white count of 6.3 with hemoglobin 14.5 and platelet count 242. Chemistries unremarkable. CRP and sed rate ordered and pending. I ordered MRSA culture as well as a wound culture. Patient started on vancomycin IV. Will discuss with hospitalist to evaluate patient for admission for cellulitis with failed outpatient therapy Lab Data Attestation: I reviewed the patient's lab results. Labs: Laboratory Results - last 24 hr 02/28/25 21:05 WBC 6.3 RBC 4.94 Hgb 14.5 Hct 42.1 MCV 85.2 MCH 29.4 MCHC 34.4 RDW Std Deviation 41.9 RDW Coeff of Ignacio 13.7 Plt Count 242 MPV 11.5 Immature Gran % (Auto) 0.300 Neut % (Auto) 44.1 L Lymph % (Auto) 40.0 Peach % (Auto) 6.2 Eos % (Auto) 8.4 H Baso % (Auto) 1.0 Absolute Neuts (auto) 2.8 Absolute Lymphs (auto) 2.51 Nucleated RBC % 0 Sodium 139 Potassium 4.3 Chloride 105 Carbon Dioxide 23.0 Anion Gap 11 BUN 12 Creatinine 0.82 Estim Creat Clear Calc 114.62 Est GFR (MDRD) Non-Af 96 BUN/Creatinine Ratio 14.3 Glucose 91 Calcium 8.9 Discharge Plan Triage Chief Complaint: Cellulitis ED Provider: Mary tSoll Dx/Rx/DC Orders Clinical Impression: Cellulitis Prescriptions: No Action sertraline [Zoloft] 100 mg tablet 100 mg PO DAILY PNV-DHA 27 mg iron-1 mg -300 mg capsule 1 cap PO DAILY metformin 500 mg tablet 500 mg PO DAILY albuterol sulfate 90 mcg/actuation HFA aerosol inhaler 2 puff inhalation Q6H PRN (Reason: asthma) cholecalciferol (vitamin D3) 50 mcg (2,000 unit) capsule 50 mcg PO QDAY enoxaparin [Lovenox] 40 mg/0.4 mL syringe 60 mg subcut Q24H 42 Days Qty: 25.2 0RF Primary Care Provider: Aparna Chavez Referrals: Aparna Chavze, BIG DATA LEAD-C [Primary Care Provider] - Print Language: Macedonian Disposition Disposition: Acute Care Hospital [facility]
[2025-02-28 21:12] LABS: Absolute Lymphocyte Count 2.51 X10^3/uL (0.83-4.51); Absolute Neutrophil Count 2.8 X10^3/uL (2.0-7.7); Basophil# 0.06 X10^3/uL; Eosinophil# 0.53 X10^3/uL; Eosinophils% 8.4 % (0-5); Hematocrit 42.1 % (37-47); Hemoglobin 14.5 g/dL (12.0-15.0); Lymphocyte # 2.51 X10^3/ul (0.83-4.51); Mean Corp Hgb Conc 34.4 g/dL (32-36); Mean Corpuscular Hgb 29.4 pg (27.0-32.0); Mean Corpuscular Volume 85.2 fL (81-99); Mean Platelet Vol. 11.5 fl (6.2-12.0); Monocyte# 0.39 X10^3/uL; Monocyte% 6.2 % (0-10); NRBC Flagged by Analyzer 0 % (0-5); Neutrophil # 2.77 X10^3/uL (2.7-7.7); Neutrophil % 44.1 % (47-70); Platelet Count 242 K/mm3 (150-450); RBC Distribution Width CV 13.7 % (11.6-14.6); RBC Distribution Width SD 41.9 fl (35.1-43.9); Red Blood Count 4.94 M/mm3 (4.2-5.4); White Blood Count 6.3 K/mm3 (4.4-11.0)
--- OUTSIDE RECORDS SUMMARY | 2025-02-28 21:13 | XMS RPT_ITS | CCD ---
Author Organization [facility] CliniSyct Care Team Providers Care Ambulette Driver Name Role Phone Bushra Collins PA-C Primary Care Provider Dennis PAYNE PA Bushra Browning Primary Care Provider [phone] KERRY Russell Referring Provider CARA King Attending Provider Bushra Collins PA-C Primary Care Provider KERRY Russell Primary Care Provider [phone] KERRY Russell Referring Provider CARA King Attending Provider Rock ARREAGA, GIBSON-C Albertina Attending Provider Dr. Carey Nassar Attending Provider Bushra Collins PA-C Primary Care Provider NO PRIMARY CARE, Primary Care Unavailable KHOI KING Referring Unavailable OCHOA WASHINGTON Attending Unavailable CAREY NASSAR Referring Unavailabl e MARK COLLINS Primary Care Unavailable JORGE MURCIA Attending Unavailable MARK OCLLINS Primary Care Unavailable JORGE MURCIA Attending Unavailable CAREY NASSAR Referring Unavailabl e MARK COLLINS Primary Care Unavailable CHAO NAJERA Attending Unavailable CAREY NASSAR Referring Unavailabl e MARK COLLINS Primary Care Unavailable CAREY NASSAR Attending UnavailCAREY Chris Referring Unavailabl e MARK COLLINS Primary Care Unavailable OCHOA WASHINGTON Attending Unavailable CAREY NASSAR Referring Unavailabl e Dennis PAYNE-Mark Acosta Primary Care Provider Unavailable Moustapha REPOSSESSOR.Monica YU Unavailable [phone] Mohan REPOSSESSOR.AIMEE, Daja Gonzalez Unavailable [phone] Dr. Norman Kaplan DO Emergency Provider Care Physician, No Primary Primary Care Provider Unavailable MARK COLLINS Primary Care Unavailable SELF Referring Unavailable MONICA GERARD Attending Unavailable ADAM CARBAJAL Attending Unavailable ANA CAMEJO Referring Unavailable Collins PA, M Mitchel Primary Care Unavailable Zackery OSTEOPATHY DOCTOR, Catherine Attending Unavailable Collins PA, M Mitchel Referring Unavailable Rock OSTEOPATHY DOCTOR, Albertina Attending Unavailable Collins PA, M Mitchel Primary Care Unavailable Collins PA, M Mitchel Referring Unavailable Gudelia Dominguez Attending Unavailabl e Collins PA, M Mitchel Primary Care Unavailable Collins PA, M Mitchel Referring Unavailable Beam VSC, Zebuumairn Attending Unavailable Beam VSC, Zebulun Primary Care Unavailable Collins PA, M Mitchel Referring Unavailable Gudelia Dominguez Attending Unavailabl e Collins PA, M Mitchel Primary Care Unavailable Collins PA, M Mitchel Primary Care Unavailable Khoi King Referring Unavailable Khoi King Attending Unavailable Khoi King Consulting Unavailable Khoi King Admitting Unavailable Collins PA, M Mitchel Referring Unavailable Khoi King Attending Unavailable Collins PA, M Mitchel Primary Care Unavailable Collins PA, M Mitchel Primary Care Unavailable Rey Feng Attending Unavailable Care Physician, No Primary Primary Care Unava ilable Norman Kaplan Attending Unavailable Khoi King Attending Unavailable Collins PA, M Mitchel Primary Care Unavailable Khoi King Referring Unavailable Collins PA, M Mitchel Referring Unavailable Khoi King Attending Unavailable Collins PA, M Mitchel Primary Care Unavailable Collins PA, M Mitchel Primary Care Unavailable Khoi King Attending Unavailable Khoi King Referring Unavailable Gudelia Dominguez Admitting Unavailabl e Gudelia Dominguez Attending Unavailabl e Khoi King Referring Unavailable Collins PA, M Mitchel Primary Care Unavailable Beam VSC, Zebulun Attending Unavailable Beam VSC, Zebulun Primary Care Unavailable Ocllins PA, M Mitchel Primary Care Unavailable Collins PA, M Mitchel Referring Unavailable Zackery OSTEOPATHY DOCTOR, Catherine Attending Unavailable Collins PA, M Mitchel Referring Unavailable Albertina Wilkerson NP Attending Unavailable Bushra Russell Primary Care Unavailable Bushra Russell Referring Unavailable Bushra Russell Primary Care Unavailable Khio King Attending Unavailable Bushra Russell Referring Unavailable Rodolfo Carpenter Attending Unavailable Bushra Russell Primary Care Unavailable Gudelia Dominguez Admitting UnavailGudelia Locke Attending Unavailabl e Gudelia Dominguez Consulting Unavailabl e Allergies Allergy Classification Reported Allergen(s) Allergy Type Date of Onset Reaction(s) Facility (20 sources) Banana Extract; Translations: [BANANA] Drug Allergy 05-19-2016 [facility] Work Phone: (20 sources) Latex; Translations: [LATEX] Drug Allergy 05-19-2016 [facility] Work Phone: (9 sources) Bacitracin; Translations: [BACITRACIN] Drug Allergy 02-14-2022 [facility] (9 sources) Neomycin; Translations: [NEOMYCIN] Drug Allergy 02-14-2022 [facility] (9 sources) Polymyxin B; Translations: [POLYMYXIN B] Drug Allergy 02-14-2022 [facility] (1 source) Bacitracin Drug Allergy 12-08-2024 [facility] (1 source) Banana Extract Drug Allergy 12-08-2024 [facility] (1 source) Latex Drug allergy (disorder) 12-08-2024 [facility] (1 source) Neomycin Drug Allergy 12-08-2024 [facility] (1 source) polymyxin B Drug allergy (disorder) 12-08-2024 [facility] Medications Current Medications Medication Drug Class(es) Dates Sig (Normalized) Sig (Original) [id number] 200 actuat albuterol 0.09 mg/actuat metered dose [...] (1 source) Penicillin-class Antibacterial Start: 025 End: 025 take 2 capsules by mouth three times daily amoxicillin (AMOXIL) 500 mg capsule Take 2 capsules by mouth three times a day for 5 days. 30 capsule 10/08/2024 10/13/2024 Active benzonatate 100 mg oral capsule (1 source) Non-narcotic Antitussive Start: 023 take 2 capsules by mouth three times [...] Comment on above: Take 1 capsule by mo uth four times daily for 5 days. cholecalciferol [...] (15 sources) Provitamin D2 Compound Start: 06-02-20 take 1 capsule by mouth every week ergocalciferol 50,000 unit capsule (VITAMIN D2, DRISDOL) Indications: Vitamin D deficiency , Elevated PTHrP level Take 1 capsule by mouth one time a week. 12 capsule 3 06/02/2023 Active Start: 02-03-20[address] [facility] every week ergocalciferol 50,000 unit capsule (VITAMIN D2, DRISDOL) Take 1 capsule by mouth one time a week. 12 capsule 3 02/03/2023 Active Comment on above: Take 1 capsule by mo ut one time a week. fluticasone propionate 0.05 [...] release oral tablet (1 source) Start: 04-09-20 23 take 2 tablets by mouth twice daily guaiFENesin (MUCINEX) 600 mg 12 hr tablet Indications: URI with cough and congestion Take 2 tablets by mouth twice daily. 24 tablet 0 04/09/2023 Active Start: 04-09-2023 take 2 tablets by mo uth twice daily guaiFENesin (MUCINEX) 600 mg 12 hr tablet Indications: URI with cough and congestion Take 2 tablets by mouth twice daily. 24 tablet 0 04/09/2023 Active Comment on above: Take 2 tablets by mo [facility] twice daily. metFORMIN hydrochloride 500 mg oral [...] on above: TAKE 1 TABLET BY LARISSA ONCE DAILY after dinner for 1 week, then 1 tablet after breakfast and 1 tablet after dinner for 1 week then 1 tablet after breakfast and 2 tablets after dinner Multivit 91-Gmtk-Mbtfkq 1-Dha (Pnv-Dha) 27 mg iron-1 mg -300 mg capsule (5 sources) Start: 08-15-2023 Multivit 75-Tbaa-Oqjbbj 1-Dha (Pnv-Dha) 27 mg iron-1 mg -300 [...] Comment on above: Take 1 capsule by mo [facility] daily before breakfast. 1/2 hr before meal. predniSONE 20 mg oral tablet (1 source) Start: 04-09-2023 End: 04-14-2023 take 2 tablets by mouth once daily predniSONE (DELTASONE) 20 mg tablet Indications: URI with cough and congestion Take 2 tablets by mouth once daily for 5 days. 10 tablet 0 04/09/2023 04/14/2023 Active Comment on above: Take 2 tablets by mo [facility] once daily for 5 days. 25/iron fum/folic/dha [...] Comment on above: Take 1 tablet by [facility] once daily. triamcinolone acetonide 1 mg/ml [...] HOURS NEEDED as needed for Pain 10 3 July 24, 2019 July 26, 2019 1:00am August 01, 2019 1:08am Start: 07-24-2019 End: 08-01-2019 take 1 tablet by mouth every six hours as needed Hydrocodone-Acetaminophen Discontinued 1 TABLET PO EVERY 6 HOURS NEEDED 06 06July 24, 2019 August 01, 2019 1:08am acetaminophen [...] above: Take 1 tablet by larissa th every 6 hours as needed for itching/rash. [...] tablet (20 sources) Progestin Start: 2 End: 3 Medroxyprogesterone 10 mg tablet Discontinued 10 mg [...] sources) Serotonin Reuptake Inhibitor Start: 2018 End: 2021 Paroxetine Hcl 20 MG tablet Discontinued 1 [...] owth us q 4 weeks-follow up at [facility] Other complications of (3 sources) Maternal obesity [...] Manjinder, father passed- 03/20. Other complications of (8 sources) Supervision of high risk , unspecified, unspecified trimester; Translations: [Supervision of unspecified high-risk ] 08-24-2023 Episodic Other complications of (2 sources) Nausea and [...] unspecified; Translations: [Obesity, unspecified] 09-19-2023 Chronic Other screening for suspected conditions (not mental disorders or infectious disease) (4 sources) Abnormal results of thyroid function studies; Translations: [Encounter for screening for diabetes mellitus] Onset: 02-26-2025 Episodic Other skin disorders (1 source) Eruption; Translations: [...] (12 sources) Infertile; Translations: [Infertility] 08-15-2023 Unclassified (1 source) Rash Onset: 01-31-2025 Unclassified (2 sources) Maternal care for other (suspected) abnormality and damage, genitourinary anomalies, not applicable or unspecified; Translations: [Maternal care for other (suspected) abnormality and damage, genitourinary anomalies, not applicable or unspecified] Onset: 03-20-2024 Unclassified (1 source) Other specified diseases and conditions complicating ; Translations: [Other specified diseases and conditions complicating ] Onset: 03-26-2024 Viral infection (1 source) Enteroviral vesicular stomatitis [...] Episodic Immunizations and screening for infectious disease (2 sources) Needs influenza immunization; Translations: [Encounter for immunization] Onset: 06-04-2024 06-04-2024 Episodic Other complications of (2 sources) Supervision [...] Onset: 09-04-2015 06-19-2019 Episodic Residual codes; unclassified (1 source) History of uterine scar from previous surgery; Translations: [History of uterine scar from previous surgery] Onset: 04-04-2024 Episodic Residual codes; unclassified (2 sources) 38 weeks gestation of ; Translations: [38 weeks gestation of ] Onset: 03-20-2024 Episodic Residual codes; unclassified (1 source) 36 [...] Test Name Value Interpretation Reference Range Facility T4 Free Directon 02-27-2025 T4 FREE DIRECT 0.90 ng/dL Normal 0.76-1.46 [facility] Comment on above: Order Comment: N Performed By: #### L 100.0100, L500.4050 #### [facility] [address] [place], [address] T4 Total, Thyroxinon 025 T4 [Mass/Vol] 6.1 ug/dL Normal 4.8-13.9 [facility] Comment on above: Performed By: #### L 100.0100, L500.4050 #### [facility] [address] [place], [address] CBC W/Diff, Automatedon 02-03 Absolute Lymph 1.85 X10 3/uL Normal 0.83-4.51 [facility] Comment on above: Performed By: #### L [id number], L501.9985, L500.4100, L100.0100, L500.4050, L506.1001 #### [facility] [address] [place], [address] Absolute Neut 3.5 X10 3/uL Normal 2.0-7.7 [facility] Comment on above: Performed By: #### L [id number], L501.9985, L500.4100, L100.0100, L500.4050, L506.1001 #### [facility] [address] [place], [address] Basophils/100 WBC (Bld) 1.3 % High 0-1 [facility] Comment on above: Performed By: #### L 501.9520, L501.9985, L500.4100, L100.0100, L500.4050, L506.1001 #### [facility] [address] [place], [address] Eosinophils/100 WBC (Bld) 6.6 % High 0-5 [facility] Comment on above: Performed By: #### L 501.9520, L501.9985, L500.4100, L100.0100, L500.4050, L506.1001 #### [facility] [address] [place], [address] Erythrocyte distribution width (RBC) [Ratio] 13.4 % Normal 11.6-14.6 [facility] Comment on above: Performed By: #### L 501.9520, L501.9985, L500.4100, L100.0100, L500.4050, L506.1001 #### [facility] [address] [place], [address] Hematocrit (Bld) [Volume fraction] 43.6 % Normal 37-47 [facility] Comment on above: Performed By: #### L 501.9520, L501.9985, L500.4100, L100.0100, L500.4050, L506.1001 #### [facility] [address] [place], [address] Hemoglobin (Bld) [Mass/Vol] 14.9 g/dL Normal 12.0-15.0 [facility] Comment on above: Performed By: #### L 501.9520, L501.9985, L500.4100, L100.0100, L500.4050, L506.1001 #### [facility] [address] [place], [address] IG% 0.300 Normal 0.0-0.9 [facility] Comment on above: Result Comment: IG% - Immature Granulocytes (promyelocytes, myelocytes and metamyelocytes) > 1% indicates that a LEFT SHIFT is Present. Performed By: #### L 501.9520, L501.9985, L500.4100, L100.0100, L500.4050, L506.1001 #### [facility] [address] [place], [address] Lymphocytes/100 WBC (Bld) 29.1 % Normal 19-41 [facility] Comment on above: Performed By: #### L 501.9520, L501.9985, L500.4100, L100.0100, L500.4050, L506.1001 #### [facility] [address] [place], [address] MCH (RBC) [Entitic mass] 28.9 pg Normal 27.0-32.0 [facility] Comment on above: Performed By: #### L 501.9520, L501.9985, L500.4100, L100.0100, L500.4050, L506.1001 #### [facility] [address] [place], [address] MCHC (RBC) [Mass/Vol] 34.2 g/dL Normal 32-36 [facility] Comment on above: Performed By: #### L 501.9520, L501.9985, L500.4100, L100.0100, L500.4050, L506.1001 #### [facility] [address] [place], [address] MCV (RBC) [Entitic vol] 84.7 fL Normal 81-99 [facility] Comment on above: Performed By: #### L 501.9520, L501.9985, L500.4100, L100.0100, L500.4050, L506.1001 #### [facility] [address] [place], [address] Monocytes/100 WBC (Bld) 7.4 % Normal 0-10 [facility] Comment on above: Performed By: #### L 501.9520, L501.9985, L500.4100, L100.0100, L500.4050, L506.1001 #### [facility] [address] [place], [address] Neutrophils/100 WBC (Bld) 55.3 % Normal 47-70 [facility] Comment on above: Performed By: #### L 501.9520, L501.9985, L500.4100, L100.0100, L500.4050, L506.1001 #### [facility] [address] [place], [address] Nucleated RBC (Bld) [#/Vol] 0 10*3/uL Normal 0-5 [facility] Comment on above: Performed By: #### L 501.9520, L501.9985, L500.4100, L100.0100, L500.4050, L506.1001 #### [facility] [address] [place], [address] Platelet mean volume (Bld) [Entitic vol] 11.4 fL Normal 6.2-12.0 [facility] Comment on above: Performed By: #### L 501.9520, L501.9985, L500.4100, L100.0100, L500.4050, L506.1001 #### [facility] [address] [place], [address] Platelets (Bld) [#/Vol] 245 10*3/uL Normal 150-450 [facility] Comment on above: Performed By: #### L 501.9520, L501.9985, L500.4100, L100.0100, L500.4050, L506.1001 #### [facility] [address] [place], [address] RBC (Bld) [#/Vol] 5.15 10*6/uL Normal 4.2-5.4 [facility] Comment on above: Performed By: #### L 501.9520, L501.9985, L500.4100, L100.0100, L500.4050, L506.1001 #### [facility] [address] [place], [address] RDW SD 41.3 fl Normal 35.1-43.9 [facility] Comment on above: Performed By: #### L 501.9520, L501.9985, L500.4100, L100.0100, L500.4050, L506.1001 #### [facility] [address] [place], [address] WBC (Bld) [#/Vol] 6.4 10*3/uL Normal 4.4-11.0 [facility] Comment on above: Performed By: #### L 501.9520, L501.9985, L500.4100, L100.0100, L500.4050, L506.1001 #### [facility] [address] [place], [address] Comprehensive Metabolic Prof [facility] 02-26-2025 Albumin [Mass/Vol] 4.3 g/dL Normal 3.5-5.0 [facility] Comment on above: Performed By: #### L 501.9520, L501.9985, L500.4100, L100.0100, L500.4050, L506.1001 #### [facility] [address] [place], [address] Albumin/Globulin [Mass ratio] 1.4 {ratio} Normal 0.9-2.4 [facility] Comment on above: Performed By: #### L 501.9520, L501.9985, L500.4100, L100.0100, L500.4050, L506.1001 #### [facility] [address] [place], [address] ALK PHOS 71 U/L Normal 35-104 [facility] Comment on above: Performed By: #### L 501.9520, L501.9985, L500.4100, L100.0100, L500.4050, L506.1001 #### [facility] [address] [place], [address] ALT [Catalytic activity/Vol] 26 U/L Normal <=34 [facility] Comment on above: Performed By: #### L 501.9520, L501.9985, L500.4100, L100.0100, L500.4050, L506.1001 #### [facility] [address] [place], [address] AST [Catalytic activity/Vol] 18 U/L Normal <=31 [facility] Comment on above: Performed By: #### L 501.9520, L501.9985, L500.4100, L100.0100, L500.4050, L506.1001 #### [facility] [address] [place], [address] Bilirubin [Mass/Vol] 0.21 mg/dL Normal 0.00-1.30 [facility] Comment on above: Performed By: #### L 501.9520, L501.9985, L500.4100, L100.0100, L500.4050, L506.1001 #### [facility] [address] [place], [address] BUN/CRE 13.8 RATIO Normal 10-20 [facility] Comment on above: Performed By: #### L 501.9520, L501.9985, L500.4100, L100.0100, L500.4050, L506.1001 #### [facility] [address] [place], [address] Calcium [Mass/Vol] 9.3 mg/dL Normal 7.6-11.0 [facility] Comment on above: Performed By: #### L 501.9520, L501.9985, L500.4100, L100.0100, L500.4050, L506.1001 #### [facility] [address] [place], [address] Chloride [Moles/Vol] 106 mmol/L Normal 98-108 [facility] Comment on above: Performed By: #### L 501.9520, L501.9985, L500.4100, L100.0100, L500.4050, L506.1001 #### [facility] [address] [place], [address] CO2 [Moles/Vol] 21.0 mmol/L Normal 21.0-32.0 [facility] Comment on above: Performed By: #### L 501.9520, L501.9985, L500.4100, L100.0100, L500.4050, L506.1001 #### [facility] [address] [place], [place], [id number] Creatinine [Mass/Vol] 0.90 mg/dL Normal 0.70-1.20 [facility] Comment on above: Performed By: #### L 501.9520, L501.9985, L500.4100, L100.0100, L500.4050, L506.1001 #### [facility] [address] [place], [place], [id number] (538) GAP 13 Normal 5-15 [facility] Comment on above: Performed By: #### L 501.9520, L501.9985, L500.4100, L100.0100, L500.4050, L506.1001 #### [facility] [address] [place], [place], [id number] (876) GFR/1.73 sq M.predicted among non-blacks MDRD (S/P/Bld) [Vol rate/Area] 86 mL/min/{1.73_m2} Normal >60 [facility] Comment on above: Result Comment: mL/m in/1.73m2 CKD-EPI Creatinine Equation (2020) Performed By: #### L 501.9520, L501.9985, L500.4100, L100.0100, L500.4050, L506.1001 #### [facility] [address] [place], [place], [id number] ([address] Globulin (S) [Mass/Vol] 3.0 g/dL Normal 2.2-4.2 [facility] Comment on above: Performed By: #### L 501.9520, L501.9985, L500.4100, L100.0100, L500.4050, L506.1001 #### [facility] [address] [place], [address] Glucose [Mass/Vol] 97 mg/dL Normal 70-99 [facility] Comment on above: Performed By: #### L 501.9520, L501.9985, L500.4100, L100.0100, L500.4050, L506.1001 #### [facility] [address] [place], [address] Potassium [Moles/Vol] 4.3 mmol/L Normal 3.3-5.1 [facility] Comment on above: Performed By: #### L 501.9520, L501.9985, L500.4100, L100.0100, L500.4050, L506.1001 #### [facility] [address] [place], [address] Sodium [Moles/Vol] 139 mmol/L Normal 133-145 [facility] Comment on above: Performed By: #### L 501.9520, L501.9985, L500.4100, L100.0100, L500.4050, L506.1001 #### [facility] [address] [place], [address] T PROT 7.3 g/dL Normal 5.9-8.4 [facility] Comment on above: Performed By: #### L 501.9520, L501.9985, L500.4100, L100.0100, L500.4050, L506.1001 #### [facility] [address] [place], [address] Urea nitrogen [Mass/Vol] 12 mg/dL Normal 4-19 [facility] Comment on above: Performed By: #### L 501.9520, L501.9985, L500.4100, L100.0100, L500.4050, L506.1001 #### [facility] [address] [place], [address] Hemoglobin A1con 02-26-2025 HbA1c (Bld) [Mass fraction] 5.7 % Normal <=5.6 [facility] Comment on above: Result Comment: Norm al < 5.7 % Prediabetic 5.7 - 6.4 % Diabetic >or= 6.5 % Please note range changes. Performed By: #### L 100.0100, L500.4050 #### [facility] [address] [place], [address] Lipid Profileon 02-26-2025 CHOL:HDL 4.38 Normal [facility] Comment on above: Performed By: #### L 501.9520, L501.9985, L500.4100, L100.0100, L500.4050, L506.1001 #### [facility] [address] [place], [address] Cholesterol [Mass/Vol] 197 mg/dL Normal <=200 [facility] Comment on above: Result Comment: Chol esterol level, Desirable <200 mg/dL Borderline high cholesterol 200-239 mg/dL High cholesterol >=240 mg/dL Recommendations of the NCEP Adult Treatment Panel for the following risk-cutoff thresholds for the [place] population. Performed By: #### L 501.9520, L501.9985, L500.4100, L100.0100, L500.4050, L506.1001 #### [facility] [address] [place], [address] Cholesterol in HDL [Mass/Vol] 45 mg/dL Normal [facility] Comment on above: Result Comment: Carol onal Cholesterol Education Program (NCEP) guidelines: <40 mg/dL: Low HDL-cholesterol (major risk factor for CHD) >= 60 mg/dL: High HDL-cholesterol (negative risk factor for CHD) HDL-cholesterol is affected by a number of factors, e.g. smoking, exercise, hormones, sex and age. Performed By: #### L 501.9520, L501.9985, L500.4100, L100.0100, L500.4050, L506.1001 #### [facility] [address] [place], [address] Cholesterol in LDL [Mass/Vol] 128 mg/dL Normal [facility] Comment on above: Result Comment: Bord wcoiqr=220-696 mg/dL Higher Paml=704 mg/dL or greater Performed By: #### L 501.9520, L501.9985, L500.4100, L100.0100, L500.4050, L506.1001 #### [facility] [address] [place], [address] Cholesterol in VLDL [Mass/Vol] 24 mg/dL Normal 5-40 [facility] Comment on above: Performed By: #### L 501.9520, L501.9985, L500.4100, L100.0100, L500.4050, L506.1001 #### [facility] [address] [place], [address] Triglyceride [Mass/Vol] 119 mg/dL Normal [facility] Comment on above: Result Comment: The drugs N-Acetylcysteine and Metamizole may falsely depress this assay. Normal range: <150 mg/dL Borderline High: 150-199 mg/dL High: 200-499 mg/dL Very High: >500 mg/dL Performed By: #### L 501.9520, L501.9985, L500.4100, L100.0100, L500.4050, L506.1001 #### [facility] [address] [place], [address] Thyroid Stim Hormone (TSH)on 02-26-2025 TSH 4.220 uIU/mL High 0.300-4.200 [facility] Comment on above: Performed By: #### L 100.0100, L500.4050 #### [facility] [address] [place], [place], [address] Vitamin D,25 Hydroxyon 02-26 Vitamin D 25-OH 19.7 ng/mL Low 30-100 [facility] Comment on above: Result Comment: Estrellita min D Status Deficiency: <20 ng/mL (50nmol/L) Insufficiency: 20-30 ng/mL (50-75 nmol/L) Sufficiency: 30-100 ng/mL (75-250 nmol/L) Toxicity: >100 ng/mL (>250 nmol/L) Performed By: #### L 100.0100, L500.4050 #### [facility] [address] [place], [address] CNOVon 01-31-2025 CNOV Office Visit ([facility] ) MILDRED MICHEL ([id number]) 1990 F Date Time Provider Department 01/31/25 7:30 AM ADAM CARBAJAL [facility] During your visit today, we recorded the following information about you: Temperature Pulse Respiration Blood pressure 98.3 degrees 85/minute 18/minute 114/76 Weight 107.2 kg Adam Carbajal APRN.JUNIOR DESIGNER 01/31/2025 8:31 AM Signed Subjective HPI Nontoxic-appearing [...] Macular papular (more content not included)... Normal [facility] Absolute neutrophil countOrd ered By: Norman Kaplan on 12-08-2024 Neutrophils (Bld) [#/Vol] 2.5 10*3/uL 2.0-7.7 [facility] Anion gap in Serum or Plasma Ordered By: Norman Kaplan on 12-08-2024 Anion gap [Moles/Vol] 13 mmol/L 5-15 [facility] BUN/creatinine ratioOrdered By: Norman Kaplan on 12-08-2024 Urea nitrogen/Creatinine [Mass ratio] 15.9 mg/mg 10-20 [facility] Basic Metabolic Profile (BMP )on 12-08-2024 BUN/CRE 15.9 RATIO Normal 10-20 [facility] Comment on above: Performed By: #### L 100.0100, L500.4050 #### [facility] [address] [place], [address] Calcium [Mass/Vol] 9.0 mg/dL Normal 7.6-11.0 [facility] Comment on above: Performed By: #### L 100.0100, L500.4050 #### [facility] [address] [place], [address] Chloride [Moles/Vol] 104 mmol/L Normal 98-108 [facility] Comment on above: Performed By: #### L 100.0100, L500.4050 #### [facility] [address] [place], [address] CO2 [Moles/Vol] 22.2 mmol/L Normal 21.0-32.0 [facility] Comment on above: Performed By: #### L 100.0100, L500.4050 #### [facility] [address] [place], [address] Creatinine [Mass/Vol] 0.78 mg/dL Normal 0.70-1.20 [facility] Comment on above: Performed By: #### L 100.0100, L500.4050 #### [facility] [address] [place], [address] ECRCL 115.91 ml/min Normal 50-250 [facility] Comment on above: Performed By: #### L 100.0100, L500.4050 #### [facility] [address] [place], [address] GAP 13 Normal 5-15 [facility] Comment on above: Performed By: #### L 100.0100, L500.4050 #### [facility] [address] [place], [address] GFR/1.73 sq M.predicted among non-blacks MDRD (S/P/Bld) [Vol rate/Area] 102 mL/min/{1.73_m2} Normal >60 [facility] Comment on above: Result Comment: mL/m in/1.73m2 CKD-EPI Creatinine Equation (2020) Performed By: #### L 100.0100, L500.4050 #### [facility] [address] [place], [address] Glucose [Mass/Vol] 91 mg/dL Normal 70-99 [facility] Comment on above: Performed By: #### L 100.0100, L500.4050 #### [facility] [address] [place], [address] Potassium [Moles/Vol] 3.7 mmol/L Normal 3.3-5.1 [facility] Comment on above: Performed By: #### L 100.0100, L500.4050 #### [facility] [address] [place], [address] Sodium [Moles/Vol] 138 mmol/L Normal 133-145 [facility] Comment on above: Performed By: #### L 100.0100, L500.4050 #### [facility] [address] [place], [address] Urea nitrogen [Mass/Vol] 12 mg/dL Normal 4-19 [facility] Comment on above: Performed By: #### L 100.0100, L500.4050 #### [facility] [address] [place], [address] Basophil percentageOrdered B y: Norman Kaplan on 12-08-2024 Basophils/100 WBC (Bld) 0.7 % 0-1 [facility] Beta HCG ( test) Ql Ordered By: Norman Kaplan on 12-08-2024 Serum Test, Qualitative Negative [facility] Bilirubin Test strip Ql (U)O rdered By: Norman Kaplan on 12-08-2024 Bilirubin Ql (U) Negative Negative [facility] CBC W/Diff, Automatedon 04-0 Absolute Lymph 1.39 X10 3/uL Normal 0.83-4.51 [facility] Comment on above: Performed By: #### L 100.0100, L500.4050 #### [facility] [address] [place], [address] Absolute Neut 2.5 X10 3/uL Normal 2.0-7.7 [facility] Comment on above: Performed By: #### L 100.0100, L500.4050 #### [facility] [address] [place], [address] Basophils/100 WBC (Bld) 0.7 % Normal 0-1 [facility] Comment on above: Performed By: #### L 100.0100, L500.4050 #### [facility] [address] [place], [address] Eosinophils/100 WBC (Bld) 4.2 % Normal 0-5 [facility] Comment on above: Performed By: #### L 100.0100, L500.4050 #### [facility] [address] [place], [address] Erythrocyte distribution width (RBC) [Ratio] 13.4 % Normal 11.6-14.6 [facility] Comment on above: Performed By: #### L 100.0100, L500.4050 #### [facility] [address] [place], [address] Hematocrit (Bld) [Volume fraction] 47.4 % High 37-47 [facility] Comment on above: Performed By: #### L 100.0100, L500.4050 #### [facility] [address] [place], [address] Hemoglobin (Bld) [Mass/Vol] 15.8 g/dL High 12.0-15.0 [facility] Comment on above: Performed By: #### L 100.0100, L500.4050 #### [facility] [address] [place], [address] IG% 0.200 Normal 0.0-0.9 [facility] Comment on above: Result Comment: IG% - Immature Granulocytes (promyelocytes, myelocytes and metamyelocytes) > 1% indicates that a LEFT SHIFT is Present. Performed By: #### L 100.0100, L500.4050 #### [facility] [address] [place], [address] Lymphocytes/100 WBC (Bld) 30.5 % Normal 19-41 [facility] Comment on above: Performed By: #### L 100.0100, L500.4050 #### [facility] [address] [place], [address] MCH (RBC) [Entitic mass] 27.9 pg Normal 27.0-32.0 [facility] Comment on above: Performed By: #### L 100.0100, L500.4050 #### [facility] [address] [place], [address] MCHC (RBC) [Mass/Vol] 33.3 g/dL Normal 32-36 [facility] Comment on above: Performed By: #### L 100.0100, L500.4050 #### [facility] [address] [place], [address] MCV (RBC) [Entitic vol] 83.6 fL Normal 81-99 [facility] Comment on above: Performed By: #### L 100.0100, L500.4050 #### [facility] [address] [place], [address] Monocytes/100 WBC (Bld) 10.5 % High 0-10 [facility] Comment on above: Performed By: #### L 100.0100, L500.4050 #### [facility] [address] [place], [address] Neutrophils/100 WBC (Bld) 53.9 % Normal 47-70 [facility] Comment on above: Performed By: #### L 100.0100, L500.4050 #### [facility] [address] [place], [address] Nucleated RBC (Bld) [#/Vol] 0 10*3/uL Normal 0-5 [facility] Comment on above: Performed By: #### L 100.0100, L500.4050 #### [facility] [address] [place], [address] Platelet mean volume (Bld) [Entitic vol] 11.1 fL Normal 6.2-12.0 [facility] Comment on above: Performed By: #### L 100.0100, L500.4050 #### [facility] [address] [place], [address] Platelets (Bld) [#/Vol] 222 10*3/uL Normal 150-450 [facility] Comment on above: Performed By: #### L 100.0100, L500.4050 #### [facility] [address] [place], [address] RBC (Bld) [#/Vol] 5.67 10*6/uL High 4.2-5.4 [facility] Comment on above: Performed By: #### L 100.0100, L500.4050 #### [facility] [address] [place], [address] RDW SD 41.1 fl Normal 35.1-43.9 [facility] Comment on above: Performed By: #### L 100.0100, L500.4050 #### [facility] [address] [place], [place], [address] WBC (Bld) [#/Vol] 4.6 10*3/uL Normal 4.4-11.0 [facility] Comment on above: Performed By: #### L 100.0100, L500.4050 #### [facility] [address] [place], [address] CNOVon 12-08-2024 CNOV Office Visit (UCTR ) MILDRED MICHEL ([id number]) 1990 F Date Time Provider Department 12/08/24 10:30 AM TEMITOPE NAVARRETE [facility] During your visit today, we recorded the following information about you: Temperature Pulse Respiration Blood pressure 98 degrees 80/minute 16/minute 106/72 Weight 104.9 kg Temitope Navarrete APRN.JUNIOR DESIGNER 12/08/2024 10:52 AM Signed Patient came and [...] diarrhea [R11.10, R19.7] Order(s):INFLUENZA AANDB MOLECULAR (POC) [1607635] Order #: [id number]. #:[id number] Prescriptions as of 12/09/2024 - omeprazole (PRILOSEC) [...] Status:Closed by TEMITOPE NAVARRETE on 12/08/24 Normal [facility] Carbon dioxide, total [Moles /volume] in Central venous bloodOrdered By: Norman Kaplan on 12-08-2024 CO2 [Moles/Vol] 22.2 mmol/L 21.0-32.0 [facility] Chest PA and Lateralon 12-08 Chest PA and Lateral [facility] Imaging Services [address] [place] [address] Chest PA and Lateral MR#: [id number] Acct: [id number] Name: KAITLINLAURENPattiMILDRED FRIED Rep #: [id number] : 1990 F 34 From: Fausto Snell DO PCP: Care Physician,No Primary Status: [facility] ER Study: Chest PA and Lateral Date of Exam: 12/08/24 Exam# [id number] Ordering Dr: Norman Kaplan DO PROCEDURE: CHEST [...] of an acute cardiopulmonary process. [facility] CC: Dr. Norman Kaplan DO; No Primary Care Physician Manager Garage: Signed Normal [facility] Chloride assayOrdered By: Cheng Kaplan on 12-08-2024 Chloride [Moles/Vol] 104 mmol/L 98-108 [facility] Emergency Department Summary on 12-08-2024 Emergency Department Summary [facility] Medical Records Department [address] [place] [address] Emergency Department Summary 12/08/24 MR#: [id number] Acct: [id number] Name: MILDRED MICHEL Rep #: [id number] : 1990 34 From: Norman Kaplan DO [...] chest pain. Patient denies any urinary complaints. [facility] Medical History Family history of hearing loss [...] Neosporin Allergy Intermediate Rash Verified 12/08/24 10:48 ([id number])) neomycin (From Neosporin Allergy Intermediate Rash Verified 12/08/24 10:48 ([id number])) polymyxin B (From Neosporin Allergy Intermediate Rash Verified 12/08/24 10:48 ([id number]-rpsps)) latex Allergy Rash Verified 12/08/24 10:48 banana [...] history of recent travel: Yes ([place]A at [place]) out of state: Yes out of country: [...] in: swimming frequency: 3-4 times per week song/mormon: Rastafarian seatbelt use: always do you feel safe [...] Musculoskeletal Musculosk (more content not included)... Normal [facility] Eosinophil percentageOrdered By: Norman Kaplan on 12-08-2024 Eosinophils/100 WBC (Bld) 4.2 % 0-5 [facility] Epithelial cells.squamous LM Ql (Urine sed)Ordered By: Norman Kaplan on 12-08-2024 Epithelial cells.squamous LM.HPF (Urine sed) [#/Area] 5 /[HPF] 5-10 [facility] Erythrocyte distribution wid th (RBC) [Ratio]Ordered By: Norman Kaplan on 12-08-2024 Erythrocyte distribution width (RBC) [Entitic vol] 41.1 fL 35.1-43.9 [facility] Erythrocyte distribution wid th ratioOrdered By: Norman Kaplan on 12-08-2024 Erythrocyte distribution width (RBC) [Ratio] 13.4 % 11.6-14.6 [facility] Estimation of creatinine johnathan aranceOrdered By: Norman Kaplan on 12-08-2024 Estimated Creatinine Clearance Calc 115.91 ml/min 50-250 [facility] GFR/1.73 sq M.predicted shaunna g non-blacks MDRD (S/P/Bld) [Vol rate/Area]Ordered By: Norman Kaplan on 12-08-2024 Estimated GFR (MDRD) Non-Af Amer 102 >60 [facility] Comment on above: mL/min/1.73m2 CKD-EP I Creatinine Equation (2020) Glucose Ql (U)Ordered By: Cheng Kaplan on 12-08-2024 Urine Glucose (UA) Normal mg/dl Normal [facility] Hematocrit Auto (Bld) [Volum e fraction]Ordered By: Norman Kaplan on 12-08-2024 Hematocrit (Bld) [Volume fraction] 47.4 % High 37-47 [facility] Hemoglobin measurementOrdere d By: Norman Kaplan on 12-08-2024 Hemoglobin (Bld) [Mass/Vol] 15.8 g/dL High 12.0-15.0 [facility] INFLUENZA A&B MOLECULAR (POC )on 12-08-2024 Flu A (POCT) Negative Negative [facility] Flu B (POCT) Negative Negative [facility] Procedural Control Valid [facility] Location:[facility], [address], [place], [address] [facility] POINT OF CARE [facility] Immature granulocytes/100 WB C Auto (Bld)Ordered By: Norman Kaplan on 12-08-2024 Immature granulocytes/100 WBC (Bld) 0.200 % 0.0-0.9 [facility] Comment on above: IG% - Immature Granu locytes (promyelocytes, myelocytes and metamyelocytes) > 1% indicates that a LEFT SHIFT is Present. Influenza virus A and B and SARS-CoV-2 (COVID-19) and Respiratory syncytial virus RNAOrdered By: Norman Kaplan on 12-08-2024 SARS-CoV-2 (COVID-19) RNA EZEKIEL+probe Ql (Unsp spec) [facility] Ketones Test strip Ql (U)Ord ered By: Norman Kaplan on 12-08-2024 Ketones Ql (U) 15 mg/dl High Negative [facility] Lymphocytes Auto (Unsp spec) [#/Vol]Ordered By: Nomran Kaplan on 12-08-2024 Lymphocytes (Bld) [#/Vol] 1.39 10*3/uL 0.83-4.51 [facility] Lymphocytes/100 WBC Auto (Un sp spec)Ordered By: Norman Kaplan on 12-08-2024 Lymphocytes/100 WBC (Bld) 30.5 % 19-41 [facility] M100.678on 12-08-2024 M100.678 Pending SARS-CoV-2 (COVID 19) Negative INFLUENZA A Negative INFLUENZA B Negative RSV PCR Negative Normal [facility] Comment on above: Performed By: #### M 100.678, L400.0001 #### [facility] [address] [place], [place], [id number] MCV (mean corpuscular volume ) determinationOrdered By: Norman Kaplan on 12-08-2024 MCV (RBC) [Entitic vol] 83.6 fL 81-99 [facility] Mean corpuscular hemoglobin (MCH) determinationOrdered By: Norman Kaplan on 12-08-2024 MCH (RBC) [Entitic mass] 27.9 pg 27.0-32.0 [facility] Mean corpuscular hemoglobin concentration (MCHC) determinationOrdered By: Norman Kaplan on 12-08-2024 MCHC (RBC) [Mass/Vol] 33.3 g/dL 32-36 [facility] Mean platelet volume determi nationOrdered By: Norman Kaplan on 12-08-2024 Platelet mean volume (Bld) [Entitic vol] 11.1 fL 6.2-12.0 [facility] Microscopic analysis of urin e for red blood cells (RBC)Ordered By: Norman Kaplan on 12-08-2024 Urine RBC 0 SEEN /hpf 0-5 [facility] Monocyte percentageOrdered B y: Norman Kaplan on 12-08-2024 Monocytes/100 WBC (Bld) 10.5 % High 0-10 [facility] Mucus LM Ql (Urine sed)Order ed By: Norman Kaplan on 12-08-2024 Mucus Ql (Urine sed) 1+ /hpf [facility] Neutrophil percentageOrdered By: Norman Kaplan on 12-08-2024 Neutrophils/100 WBC (Bld) 53.9 % 47-70 [facility] Nitrite Test strip Ql (U)Ord ered By: Norman Kaplan on 12-08-2024 Nitrite Ql (U) Negative Negative [facility] Nucleated red blood cell per centageOrdered By: Norman Kaplan on 12-08-2024 Nucleated RBC/100 WBC (Bld) [Ratio] 0 % 0-5 [facility] Platelet countOrdered By: Cheng Kaplan on 12-08-2024 Platelets (Bld) [#/Vol] 222 10*3/uL 150-450 [facility] Potassium (Unsp spec) [Mass/ Vol]Ordered By: Norman Kaplan on 12-08-2024 Potassium [Moles/Vol] 3.7 mmol/L 3.3-5.1 [facility] ,Serum,hCG Quali.on 12-08-2024 HCG, SERUM QUAL Negative Normal [facility] Comment on above: Performed By: #### L 100.0100, L500.4050 #### [facility] [address] [place], [place], [id number] Protein Test strip Ql (U)Ord ered By: Norman Kaplan on 12-08-2024 Protein Ql (U) 30 mg/dl High Negative [facility] RBC Auto (Bld) [#/Vol]Ordere d By: Norman Kaplan on 12-08-2024 RBC (Bld) [#/Vol] 5.67 10*6/uL High 4.2-5.4 [facility] Serum creatinine measurement (mass/volume)Ordered By: Norman Kaplan on 12-08-2024 Creatinine [Mass/Vol] 0.78 mg/dL 0.70-1.20 [facility] Serum glucose measurement (m ass/volume)Ordered By: Norman Kaplan on 12-08-2024 Glucose [Mass/Vol] 91 mg/dL 70-99 [facility] Serum or plasma calcium [place] urement (mass/volume)Ordered By: Norman Kaplan on 12-08-2024 Calcium [Mass/Vol] 9.0 mg/dL 7.6-11.0 [facility] Serum or plasma urea nitroge n measurement (mass/volume)Ordered By: Norman Kaplan on 12-08-2024 Urea nitrogen [Mass/Vol] 12 mg/dL 4-19 [facility] Sodium levelOrdered By: Norman Kaplan on 12-08-2024 Sodium [Moles/Vol] 138 mmol/L 133-145 [facility] Urinalysis, Completeon 12-08 BACTERIA 2+ /hpf Normal None Seen [facility] Comment on above: Order Comment: CLEAN CATCH Performed By: #### M 100.678, L400.0001 #### [facility] [address] [place], [place], [id number] EPI,SQUAMOUS 5-10 SEEN Normal 5-10 [facility] Comment on above: Order Comment: CLEAN CATCH Performed By: #### M 100.678, L400.0001 #### [facility] [address] [place], [address] Mucus Ql (Urine sed) 1+ /hpf Normal [facility] Comment on above: Order Comment: CLEAN CATCH Performed By: #### M 100.678, L400.0001 #### [facility] [address] [place], [address] WBC 0-5 SEEN Normal 0-5 [facility] Comment on above: Order Comment: CLEAN CATCH Performed By: #### M 100.678, L400.0001 #### [facility] [address] [place], [address] RBC 0 SEEN Normal 0-5 [facility] Comment on above: Order Comment: CLEAN CATCH Performed By: #### M 100.678, L400.0001 #### [facility] [address] [place], [address] Urine blood detectionOrdered By: Norman Kaplan on 12-08-2024 Urine Occult Blood Negative Negative [facility] Urine clarityOrdered By: Patricia Kaplan on 12-08-2024 Clarity (U) Sl. Cloudy Clear [facility] Urine color determinationOrd ered By: Norman Kaplan on 12-08-2024 Color (U) Yellow Yellow [facility] Urine leukocyte esterase det ection by dipstickOrdered By: Norman Kaplan on 12-08-2024 Leukocyte esterase Test strip Ql (U) 25 /ul High Negative [facility] Urine pHOrdered By: Norman gerard on 12-08-2024 pH (U) 6.0 [pH] 5.0 - 8.0 [facility] Urine sediment bacteria coun t by microscopy (number/high power field)Ordered By: Norman Kaplan on 12-08-2024 Bacteria LM.HPF (Urine sed) [#/Area] 2 /[HPF] None Seen [facility] Urine specific gravity measu rementOrdered By: Norman Kaplan on 12-08-2024 Specific gravity (U) [Rel density] 1.020 1.002-1.030 [facility] Urobilinogen Ql (U)Ordered B y: Norman Kaplan on 12-08-2024 Urine Urobilinogen Normal mg/dl Normal [facility] White blood cell (WBC) count Ordered By: Norman Kaplan on 12-08-2024 WBC (Bld) [#/Vol] 4.6 10*3/uL 4.4-11.0 [facility] White blood cell countOrdere d By: Norman Kaplan on 12-08-2024 Urine WBC 0-5 SEEN /hpf 0-5 [facility] CNOVon 10-08-2024 CNOV Office Visit (UCWSTR ) MILDRED MICHEL ([id number]) 1990 F Date Time Provider Department 10/08/24 10:15 AM ANA CAMEJO [facility] During your visit today, we recorded the following information about you: Temperature Pulse Respiration Blood pressure 98.4 degrees 96/minute 16/minute 110/76 Weight 113.3 kg Ana Camejo APRN.JUNIOR DESIGNER 10/08/2024 12:42 PM Signed Subjective HPI HPI Mildred Michel is a [...] or worse (more content not included)... Normal [facility] XR CHEST 2V FRONTAL/LATon XR CHEST 2V [...] may be due to atelectasis or infiltrate Manager Garage: PSCB Transcribe Date/Time: Oct 08 2024 10:36A Dictated by : BEATRICE MARTINEZ MD This examination was interpreted and the report reviewed and electronically signed by: BEATRICE MARTINEZ MD on Oct 08 2024 10:37AM EST [id number] Normal [facility] XR Chest PA and Lateralon IMPRESSION: Streaky densities in the medial left lung base may be due to atelectasis or infiltrate Manager Garage: PSCB Transcribe Date/Time: Oct 08 2024 10:36A Dictated [...] soft tissues: Unremarkable. DIVISION OF RADIOLOGY Provider, [facility] - 10/08/2024 * * *Final Report* * [...] may be due to atelectasis or infiltrate Manager Garage: CAMILLE Transcribe Date/Time: Oct 08 2024 10:36A Dictated by : BEATRICE MARTINEZ MD This examination was interpreted and the report reviewed and electronically signed by: BEATRICE MARTINEZ MD on Oct 08 2024 10:37AM EST [facility] Radiology Study observation (narrative) [facility] XR Chest PA and LateralOrder ed By: Ccf Provider on 10-08-2024 [facility] CNPNon 10-03-2024 CHRIS Telephone (EDNA) MILDRED MICHEL ([id number]) 1990 F Date Time Provider Department 10/03/24 MONICA GERARD During your visit today, we recorded the following information about you: LandrumMaureen 10/03/2024 1:14 PM Signed Patient calling for [...] Original placed in Med Rec's for pt picker/puller. Cira Bradford LPN Allergies As of Date: 10/03/2024 Noted Allergy Reaction BANANA 05/19/2016 8 - GI Upset LATEX 05/19/2016 2 - Rash Date Reviewed: 06/04/2024 Reviewed by: Cira Bradford LPN - Fully Assessed Reason for Visit: WILLIE Paperwork [2508] Cmt: Due by 10/05/24 Prescriptions as of [...] Encounter Status:Closed by CIRA BRADFORD on 10/04/24 [facility] CNOVon 06-04-2024 CNOV Office Visit (FAMWS ) MILDRED MICHEL ([id number]) 1990 F Date Time Provider Department 06/04/24 3:40 PM MONICA GERARD During your visit today, we recorded the following information about you: Pulse Respiration Blood pressure Weight 87/minute 16/minute 126/72 108.9 kg Monica Gerard APRN.JUNIOR DESIGNER 06/04/2024 6:05 PM Signed This is a [...] ICD10: E03.9 Will be getting labs per PACKAGING MANAGER soon. Discussed treatment plan and patient voices understanding. Patient's questions answered appropriately. Medicat (more content not included)... Normal [facility] Baggage Handling Supervisor Office Visit Reporton 05-10-2024 Baggage Handling Supervisor Office Visit Report [facility] [address], [address] [place] [address] OFFICE VISIT Date of Service: 05/10/24 MR#: [id number] Acct: [id number] Name: MILDRED MICHEL Rep #: [id number] : 1990 Provider: Dr. Gudelia Reyna DO Age/Sex: 33/F [place] [facility] [place]: Signed Intake Vital Signs 03/26/24 09:29 04/10/24 11:25 05/10/24 11:24 05/10/24 11:25 Height 5 ft 2 in 5 ft 2 in 5 ft 2 in 5 ft 2 in Weight: 235 lb BMI 43.0 BP 100/64 Intake Visit Reasons: visit (obstetrics) Electro Optics Engineer Required: No Is patient in pain?: No Allergies bacitracin (From Neosporin (kmp-bgc-zrhla)) Allergy (Intermediate, Verified 05/10/24 11:23) Rash neomycin (From Neosporin (ntc-par-kwlqu)) Allergy (Intermediate, Verified 05/10/24 11:23) Rash polymyxin B (From Neosporin (yrh-lwm-wxomu)) Allergy (Intermediate, Verified 05/10/24 11:23) Rash latex [...] history of recent travel: Yes (FLA at [place]) out of state: Yes out of country: [...] in: swimming frequency: 3-4 times per week song/mormon: Rastafarian seatbelt use: always do you feel safe at home: Yes additional social history: - [employer]- [employer] History 1 Elective abortions Hx Para 1 Spontaneous abortions Hx # Term Pregnancies Ectopic pregnancies Hx # Pregnancies Multiple births # of living children 1 Past Pregnancies Del. Date Name GA/Weeks Outcome Route Bth Weight Gen [facility]24 Miguel 39 live - full term 8# Male epidural [facility] Gudelia Knowles Delivery Date: 03/21/24 Last Updated [...] a failure (more content not included)... Normal [facility] Baggage Handling Supervisor Office Visit Reporton 04-10-2024 Baggage Handling Supervisor Office Visit Report [facility] [address] [place] [address] OFFICE VISIT Date of Service: 04/10/24 MR#: [id number] Acct: [id number] Name: MILDRED MICHEL Rep #: [id number] : 1990 Provider: MARILYN pardo Age/Sex: 33/F Location[place] [facility] [place] Status: Signed Intake Vital Signs 03/26/24 09:29 04/10/24 10:57 Height 5 ft 2 in 5 ft 2 in Weight: 236 lb 8 oz BMI 43.2 BP 114/74 Intake Visit Reasons: visit (obstetrics) Allergies bacitracin (From Neosporin (rmm-ugb-ckwjj)) Allergy (Intermediate, Verified 04/10/24 10:57) Rash neomycin (From Neosporin (ktv-jmt-qoknv)) Allergy (Intermediate, Verified 04/10/24 10:57) Rash polymyxin B (From Neosporin (dzs-avd-ndjgu)) Allergy (Intermediate, Verified 04/10/24 10:57) Rash latex [...] history of recent travel: Yes (FLA at [place]) out of state: Yes out of country: [...] in: swimming frequency: 3-4 times per week song/mormon: Rastafarian seatbelt use: always do you feel safe at home: Yes additional social history: - David- [facility] Routine Follow-Up Details: MILDRED MICHEL is a [...] Date Name GA/Weeks Outcome Route Bth Weight Infant Gen Labor Lgth Anesthesia Del Locatn Provider FOB 03/21/24 Miguel 39 live - full term 8# Male epidural [facility] Gudelia Knowles Delivery Date: 03/21/24 Last Updated by: Rupinder Cowan low transverse, c section decels Exam Const General: cooperative and no acute distress Orientation: oriented x3 GI Inspection: incision (well (more content not included)... Normal [facility] [address] [place] [address] OFFICE VISIT Date of Service: 03/25/24 MR#: [id number] Acct: [id number] Name: MILDRED MICHEL Rep #: [id number] : 1990 Provider: Catherine Vizcarra NP Age/Sex: 33/F Location: [facility] [place] Status: Signed Intake Vital Signs 03/20/24 10:26 03/26/24 09:29 Height 5 ft 2 in 5 ft 2 in Intake Visit Reasons: Visit Chief Complaint: assessment Accompanied by: Allergies bacitracin (From Neosporin (zew-szq-dnawo)) Allergy (Intermediate, Verified 03/20/24 10:48) Rash neomycin (From Neosporin (bwx-cwu-ulxkn)) Allergy (Intermediate, Verified 03/20/24 10:48) Rash polymyxin B (From Neosporin (oaj-xno-emcwd)) Allergy (Intermediate, Verified 03/20/24 10:48) Rash latex [...] history of recent travel: Yes (FLA at [place]) out of state: Yes out of country: [...] in: swimming frequency: 3-4 times per week song/mormon: Rastafarian seatbelt use: always do you feel safe [...] Other: bilateral (more content not included)... Normal [facility] CBC-Complete Blood Cnt No Di ffon 03-23-2024 Erythrocyte distribution width (RBC) [Ratio] 14.3 % Normal 11.6-14.6 [facility] Comment on above: Performed By: #### L 100.0100, L500.4050 #### [facility] [address] [place], [address] Hematocrit (Bld) [Volume fraction] 24.2 % Low 37-47 [facility] Comment on above: Performed By: #### L 100.0100, L500.4050 #### [facility] [address] [place], [address] Hemoglobin (Bld) [Mass/Vol] 8.2 g/dL Low 12.0-15.0 [facility] Comment on above: Performed By: #### L 100.0100, L500.4050 #### [facility] [address] [place], [address] MCH (RBC) [Entitic mass] 29.6 pg Normal 27.0-32.0 [facility] Comment on above: Performed By: #### L 100.0100, L500.4050 #### [facility] [address] [place], [address] MCHC (RBC) [Mass/Vol] 33.9 g/dL Normal 32-36 [facility] Comment on above: Performed By: #### L 100.0100, L500.4050 #### [facility] [address] [place], [address] MCV (RBC) [Entitic vol] 87.4 fL Normal 81-99 [facility] Comment on above: Performed By: #### L 100.0100, L500.4050 #### [facility] [address] [place], [address] Platelet mean volume (Bld) [Entitic vol] 11.3 fL Normal 6.2-12.0 [facility] Comment on above: Performed By: #### L 100.0100, L500.4050 #### [facility] [address] [place], [address] Platelets (Bld) [#/Vol] 147 10*3/uL Low 150-450 [facility] Comment on above: Performed By: #### L 100.0100, L500.4050 #### [facility] [address] [place], [address] RBC (Bld) [#/Vol] 2.77 10*6/uL Low 4.2-5.4 [facility] Comment on above: Performed By: #### L 100.0100, L500.4050 #### [facility] [address] [place], [address] RDW SD 44.7 fl High 35.1-43.9 [facility] Comment on above: Performed By: #### L 100.0100, L500.4050 #### [facility] [address] [place], [address] WBC (Bld) [#/Vol] 7.4 10*3/uL Normal 4.4-11.0 [facility] Comment on above: Performed By: #### L 100.0100, L500.4050 #### [facility] [address] [place], [address] CBC-Complete Blood Cnt No Di ffon 03-22-2024 Erythrocyte distribution width (RBC) [Ratio] 14.2 % Normal 11.6-14.6 [facility] Comment on above: Order Comment: Comme nts: Day #1 Reason for Laboratory Test Performed By: #### L 100.0500 #### [facility] [address] [place], [address] Hematocrit (Bld) [Volume fraction] 26.0 % Low 37-47 [facility] Comment on above: Order Comment: Comme nts: Day #1 Reason for Laboratory Test Performed By: #### L 100.0500 #### [facility] [address] [place], [address] Hemoglobin (Bld) [Mass/Vol] 8.7 g/dL Low 12.0-15.0 [facility] Comment on above: Order Comment: Comme nts: Day #1 Reason for Laboratory Test Performed By: #### L 100.0500 #### [facility] [address] [place], [address] MCH (RBC) [Entitic mass] 29.2 pg Normal 27.0-32.0 [facility] Comment on above: Order Comment: Comme nts: Day #1 Reason for Laboratory Test Performed By: #### L 100.0500 #### [facility] [address] [place], [address] MCHC (RBC) [Mass/Vol] 33.5 g/dL Normal 32-36 [facility] Comment on above: Order Comment: Comme nts: Day #1 Reason for Laboratory Test Performed By: #### L 100.0500 #### [facility] [address] [place], [address] MCV (RBC) [Entitic vol] 87.2 fL Normal 81-99 [facility] Comment on above: Order Comment: Comme nts: Day #1 Reason for Laboratory Test Performed By: #### L 100.0500 #### [facility] [address] [place], [address] Platelet mean volume (Bld) [Entitic vol] 12.0 fL Normal 6.2-12.0 [facility] Comment on above: Order Comment: Comme nts: Day #1 Reason for Laboratory Test Performed By: #### L 100.0500 #### [facility] [address] [place], [address] Platelets (Bld) [#/Vol] 140 10*3/uL Low 150-450 [facility] Comment on above: Order Comment: Comme nts: Day #1 Reason for Laboratory Test Performed By: #### L 100.0500 #### [facility] [address] [place], [address] RBC (Bld) [#/Vol] 2.98 10*6/uL Low 4.2-5.4 [facility] Comment on above: Order Comment: Comme nts: Day #1 Reason for Laboratory Test Performed By: #### L 100.0500 #### [facility] [address] [place], [address] RDW SD 43.5 fl Normal 35.1-43.9 [facility] Comment on above: Order Comment: Comme nts: Day #1 Reason for Laboratory Test Performed By: #### L 100.0500 #### [facility] [address] [place], [address] WBC (Bld) [#/Vol] 7.5 10*3/uL Normal 4.4-11.0 [facility] Comment on above: Order Comment: Comme nts: Day #1 Reason for Laboratory Test Performed By: #### L 100.0500 #### [facility] [address] [place], [address] Discharge Instructionon 03-04 Discharge Instruction [facility] Medical Records Department [address] [place] [address] Instructions for Home/Discharge Instructions 03/21/24 0133 MR#: [id number] Acct: [id number] Name: MILDRED MICHEL Rep #: [id number] : 1990 33 From: Gudelia Dominguez DO [...] Up With: Gudelia Dominguez DO When: Call [phone] to make an appointment for an incision [...] Dominguez DO CC: KERRY Ruiz Signed Normal [facility] Operative Reporton 4 Operative Report [facility] Medical Records Department [address] [place] [address] Operative Report 03/21/24 0125 MR#: [id number] Acct: [id number] Name: MILDRED MICHEL Rep #: [id number] : 1990 33 From: Gudelia Dominguez DO PCP: KERRY Ruiz Status:ADM IN [facility] Assessment Plan (1) Arrested labor: (2) intolerance to labor, delivered, current hospitalization: (3) Active labor: (4) Multicystic dysplastic kidney, , affecting care of mother, antepartum: QUALIFIERS: Fetus number: single or unspecified fetus Qualified Code(s): O35.EXX0 - Maternal care for other (suspected) abnormality and damage, genitourinary anomalies, not applicable or unspecified COMMENT: left kidney only. growth us q 4 weeks-follow up at [facility] (5) Obesity affecting : QUALIFIERS: Trimester: second [...] Final DICK: 03/28/24 Final DICK Source: LMP Henning Doctor Who Attended Delivery: Shailesh Jerome Details [...] of Procedure: The patient was admitted to [facility] for active labor and stalled at 7 [...] laterally manu (more content not included)... Normal [facility] CBC W/Diff, Automatedon 03-04 Absolute Lymph 1.05 X10 3/uL Normal 0.83-4.51 [facility] Comment on above: Performed By: #### L 100.0100, L500.4050 #### [facility] [address] [place], [address] Absolute Neut 8.6 X10 3/uL High 2.0-7.7 [facility] Comment on above: Performed By: #### L 100.0100, L500.4050 #### [facility] [address] [place], [address] Basophils/100 WBC (Bld) 0.2 % Normal 0-1 [facility] Comment on above: Performed By: #### L 100.0100, L500.4050 #### [facility] [address] [place], [address] Eosinophils/100 WBC (Bld) 0.0 % Normal 0-5 [facility] Comment on above: Performed By: #### L 100.0100, L500.4050 #### [facility] [address] [place], [address] Erythrocyte distribution width (RBC) [Ratio] 13.4 % Normal 11.6-14.6 [facility] Comment on above: Performed By: #### L 100.0100, L500.4050 #### [facility] [address] [place], [address] Hematocrit (Bld) [Volume fraction] 38.4 % Normal 37-47 [facility] Comment on above: Performed By: #### L 100.0100, L500.4050 #### [facility] [address] [place], [address] Hemoglobin (Bld) [Mass/Vol] 13.2 g/dL Normal 12.0-15.0 [facility] Comment on above: Performed By: #### L 100.0100, L500.4050 #### [facility] [address] [place], [address] IG% 0.500 Normal 0.0-0.9 [facility] Comment on above: Result Comment: IG% - Immature Granulocytes (promyelocytes, myelocytes and metamyelocytes) > 1% indicates that a LEFT SHIFT is Present. Performed By: #### L 100.0100, L500.4050 #### [facility] [address] [place], [address] Lymphocytes/100 WBC (Bld) 10.4 % Low 19-41 [facility] Comment on above: Performed By: #### L 100.0100, L500.4050 #### [facility] [address] [place], [address] MCH (RBC) [Entitic mass] 28.9 pg Normal 27.0-32.0 [facility] Comment on above: Performed By: #### L 100.0100, L500.4050 #### [facility] [address] [place], [address] MCHC (RBC) [Mass/Vol] 34.4 g/dL Normal 32-36 [facility] Comment on above: Performed By: #### L 100.0100, L500.4050 #### [facility] [address] [place], [address] MCV (RBC) [Entitic vol] 84.0 fL Normal 81-99 [facility] Comment on above: Performed By: #### L 100.0100, L500.4050 #### [facility] [address] [place], [address] Monocytes/100 WBC (Bld) 4.0 % Normal 0-10 [facility] Comment on above: Performed By: #### L 100.0100, L500.4050 #### [facility] [address] [place], [address] Neutrophils/100 WBC (Bld) 84.9 % High 47-70 [facility] Comment on above: Performed By: #### L 100.0100, L500.4050 #### [facility] [address] [place], [address] Nucleated RBC (Bld) [#/Vol] 0 10*3/uL Normal 0-5 [facility] Comment on above: Performed By: #### L 100.0100, L500.4050 #### [facility] [address] [place], [address] Platelet mean volume (Bld) [Entitic vol] 12.1 fL High 6.2-12.0 [facility] Comment on above: Performed By: #### L 100.0100, L500.4050 #### [facility] [address] [place], [address] Platelets (Bld) [#/Vol] 173 10*3/uL Normal 150-450 [facility] Comment on above: Performed By: #### L 100.0100, L500.4050 #### [facility] [address] [place], [address] RBC (Bld) [#/Vol] 4.57 10*6/uL Normal 4.2-5.4 [facility] Comment on above: Performed By: #### L 100.0100, L500.4050 #### [facility] [address] [place], [address] RDW SD 41.1 fl Normal 35.1-43.9 [facility] Comment on above: Performed By: #### L 100.0100, L500.4050 #### [facility] [address] [place], [address] WBC (Bld) [#/Vol] 10.1 10*3/uL Normal 4.4-11.0 [facility] Comment on above: Performed By: #### L 100.0100, L500.4050 #### [facility] [address] [place], [address] H AND P Exam - OB/GYNon - H&P Exam - PACKAGING MANAGER [facility] Medical Records Department [address] [address] H P Exam - PACKAGING MANAGER 03/20/24 1203 MR#: [id number] Acct: [id number] Name: MILDRED MICHEL Rep #: [id number] : 1990 33 From: Khoi Kign CNM PCP: KERRY Ruiz Status:ADM IN Location: LU227-6 HPI - General General Date of Admission: 03/20/24 Date of Service: 03/20/24 HPI Narrative MILDRED MICHEL, is a 33 F 38.6 weeks who presents to unit in active labor. admission orders given Maternal Data Information DICK Calculator Estimated Delivery Date Method Current WG Current Estimate 03/28/24 LMP (Certain) 38w 6d Final DICK: 03/28/24 Final DICK Source: US >20 weeks Gestational age: 38.6 PFSH [facility] Medical History (Updated 03/20/24 @ 12:06 by [...] Neosporin Allergy Intermediate Rash Verified 03/20/24 10:48 (njt-esp-rqozb)) neomycin (From Neosporin Allergy Intermediate Rash Verified 03/20/24 10:48 (dow-dud-ywwaa)) polymyxin B (From Neosporin Allergy Intermediate Rash Verified 03/20/24 10:48 (mkt-rix-arsef)) latex Allergy Rash Verified 03/20/24 10:48 banana [...] history of recent travel: Yes (FLA at [place]) out of state: Yes out of country: [...] in: swimming frequency: 3-4 times per week song/mormon: Rastafarian seatbelt use: always do you feel safe [...] -???-???-???-???-???-? ??-???-? (more content not included)... Normal [facility] L509.8000on 03-20-2024 Syphilis Abs Non-Reactive Normal [facility] Comment on above: Performed By: #### L 100.0100, L500.4050 #### [facility] [address] [place], [address] Type AND Screenon 03-20-2024 ABO and Rh group Nom (Bld) Blood group B Rh(D) positive Normal [facility] Comment on above: Order Comment: Labor Performed By: #### L 100.0100, L500.4050 #### [facility] [address] [place], [address] Baggage Handling Supervisor Office Visit Reporton 03-19-2024 Baggage Handling Supervisor Office Visit Report [facility] Emergency Department [address] [place] [address] OFFICE VISIT Date of Service: 03/19/24 MR#: [id number] Acct: [id number] Name: MILDRED MICHEL Rep #: [id number] : 1990 Provider: CARA Cruz ams Age/Sex: 33/F Location[facility] Status: Signed Intake Vital Signs 03/14/24 08:28 03/19/24 08:16 03/19/24 11:50 Height 5 ft 2 in 5 ft 2 in 5 ft 2 in Weight: 252 lb BMI 46.0 BP 122/85 H Intake Visit Reasons: 38wOB, contractions, father just Electro Optics Engineer Required: No Is patient in pain?: No Allergies bacitracin (From Neosporin (ddi-cmr-tmolg)) Allergy (Intermediate, Verified 03/19/24 11:42) Rash neomycin (From Neosporin (qbm-xmx-uisji)) Allergy (Intermediate, Verified 03/19/24 11:42) Rash polymyxin B (From Neosporin (vbn-jfg-whfkf)) Allergy (Intermediate, Verified 03/19/24 11:42) Rash latex [...] history of recent travel: Yes (FLA at [place]) out of state: Yes out of country: [...] in: swimming frequency: 3-4 times per week song/mormon: Rastafarian seatbelt use: always do you feel safe at home: Yes additional social history: - [facility] [place] History 1 Elective abortions Hx Para [...] Prot -? (more content not included)... Normal [facility] CBC W/Diff, Automatedon 07- Absolute Lymph 1.97 X10 3/uL Normal 0.83-4.51 [facility] Comment on above: Performed By: #### L 100.0100, L500.4050 #### [facility] [address] [place], [address] Absolute Neut 5.1 X10 3/uL Normal 2.0-7.7 [facility] Comment on above: Performed By: #### L 100.0100, L500.4050 #### [facility] [address] [place], [address] Basophils/100 WBC (Bld) 0.5 % Normal 0-1 [facility] Comment on above: Performed By: #### L 100.0100, L500.4050 #### [facility] [address] [place], [address] Eosinophils/100 WBC (Bld) 1.0 % Normal 0-5 [facility] Comment on above: Performed By: #### L 100.0100, L500.4050 #### [facility] [address] [place], [address] Erythrocyte distribution width (RBC) [Ratio] 13.4 % Normal 11.6-14.6 [facility] Comment on above: Performed By: #### L 100.0100, L500.4050 #### [facility] [address] [place], [address] Hematocrit (Bld) [Volume fraction] 38.2 % Normal 37-47 [facility] Comment on above: Performed By: #### L 100.0100, L500.4050 #### [facility] [address] [place], [address] Hemoglobin (Bld) [Mass/Vol] 13.4 g/dL Normal 12.0-15.0 [facility] Comment on above: Performed By: #### L 100.0100, L500.4050 #### [facility] [address] [place], [address] IG% 0.400 Normal 0.0-0.9 [facility] Comment on above: Result Comment: IG% - Immature Granulocytes (promyelocytes, myelocytes and metamyelocytes) > 1% indicates that a LEFT SHIFT is Present. Performed By: #### L 100.0100, L500.4050 #### [facility] [address] [place], [address] Lymphocytes/100 WBC (Bld) 25.1 % Normal 19-41 [facility] Comment on above: Performed By: #### L 100.0100, L500.4050 #### [facility] [address] [place], [address] MCH (RBC) [Entitic mass] 29.1 pg Normal 27.0-32.0 [facility] Comment on above: Performed By: #### L 100.0100, L500.4050 #### [facility] [address] [place], [address] MCHC (RBC) [Mass/Vol] 35.1 g/dL Normal 32-36 [facility] Comment on above: Performed By: #### L 100.0100, L500.4050 #### [facility] [address] [place], [address] MCV (RBC) [Entitic vol] 83.0 fL Normal 81-99 [facility] Comment on above: Performed By: #### L 100.0100, L500.4050 #### [facility] [address] [place], [address] Monocytes/100 WBC (Bld) 7.6 % Normal 0-10 [facility] Comment on above: Performed By: #### L 100.0100, L500.4050 #### [facility] [address] [place], [address] Neutrophils/100 WBC (Bld) 65.4 % Normal 47-70 [facility] Comment on above: Performed By: #### L 100.0100, L500.4050 #### [facility] [address] [place], [address] Nucleated RBC (Bld) [#/Vol] 0 10*3/uL Normal 0-5 [facility] Comment on above: Performed By: #### L 100.0100, L500.4050 #### [facility] [address] [place], [address] Platelet mean volume (Bld) [Entitic vol] 11.7 fL Normal 6.2-12.0 [facility] Comment on above: Performed By: #### L 100.0100, L500.4050 #### [facility] [address] [place], [address] Platelets (Bld) [#/Vol] 188 10*3/uL Normal 150-450 [facility] Comment on above: Performed By: #### L 100.0100, L500.4050 #### [facility] [address] [place], [address] RBC (Bld) [#/Vol] 4.60 10*6/uL Normal 4.2-5.4 [facility] Comment on above: Performed By: #### L 100.0100, L500.4050 #### [facility] [address] [place], [address] RDW SD 40.0 fl Normal 35.1-43.9 [facility] Comment on above: Performed By: #### L 100.0100, L500.4050 #### [facility] [address] [place], [address] WBC (Bld) [#/Vol] 7.9 10*3/uL Normal 4.4-11.0 [facility] Comment on above: Performed By: #### L 100.0100, L500.4050 #### [facility] [address] [place], [address] Comprehensive Metabolic Prof ilon 03-14-2024 Albumin [Mass/Vol] 2.7 g/dL Low 3.2-5.0 [facility] Comment on above: Performed By: #### L 100.0100, L500.4050 #### [facility] [address] [place], [address] Albumin/Globulin [Mass ratio] 0.7 {ratio} Low 0.9-2.4 [facility] Comment on above: Performed By: #### L 100.0100, L500.4050 #### [facility] [address] [place], [address] ALK P 138 U/L High 45-117 [facility] Comment on above: Performed By: #### L 100.0100, L500.4050 #### [facility] [address] [place], [address] ALT [Catalytic activity/Vol] 15 U/L Normal 13-56 [facility] Comment on above: Performed By: #### L 100.0100, L500.4050 #### [facility] [address] [place], [address] AST [Catalytic activity/Vol] 10 U/L Low 15-37 [facility] Comment on above: Performed By: #### L 100.0100, L500.4050 #### [facility] [address] [place], [address] Bilirubin [Mass/Vol] 0.20 mg/dL Normal 0.20-1.00 [facility] Comment on above: Result Comment: For patients on eltrombopag therapy, use of Dimension [place] TBIL is not recommended. Performed By: #### L 100.0100, L500.4050 #### [facility] [address] [place], [address] BUN/CRE 19.9 RATIO Normal 10-20 [facility] Comment on above: Performed By: #### L 100.0100, L500.4050 #### [facility] [address] [place], [address] CA,Total 9.5 mg/dL Normal 8.5-10.1 [facility] Comment on above: Performed By: #### L 100.0100, L500.4050 #### [facility] [address] [place], [address] Chloride [Moles/Vol] 110 mmol/L High 98-107 [facility] Comment on above: Performed By: #### L 100.0100, L500.4050 #### [facility] [address] [place], [address] CO2 [Moles/Vol] 20.0 mmol/L Low 21.0-32.0 [facility] Comment on above: Performed By: #### L 100.0100, L500.4050 #### [facility] [address] [place], [address] Creatinine [Mass/Vol] 0.70 mg/dL Normal 0.55-1.02 [facility] Comment on above: Result Comment: The validity of the calculated GFR GFRAA in patients over 70 years has not been determined. Clinical correlation is essential. Performed By: #### L 100.0100, L500.4050 #### [facility] [address] [place], [address] EST GFR - AA 122 mL/min Normal >60 [facility] Comment on above: Result Comment: Afri can Marshallese GFR Calc Performed By: #### L 100.0100, L500.4050 #### [facility] [address] [place], [address] GAP 7 Normal 5-15 [facility] Comment on above: Performed By: #### L 100.0100, L500.4050 #### [facility] [address] [place], [address] GFR/1.73 sq M.predicted among non-blacks MDRD (S/P/Bld) [Vol rate/Area] 101 mL/min/{1.73_m2} Normal >60 [facility] Comment on above: Result Comment: Non- GFR Calc Performed By: #### L 100.0100, L500.4050 #### [facility] [address] [place], [address] Globulin (S) [Mass/Vol] 3.7 g/dL Normal 2.2-4.2 [facility] Comment on above: Performed By: #### L 100.0100, L500.4050 #### [facility] [address] [place], [address] Glucose [Mass/Vol] 85 mg/dL Normal 74-106 [facility] Comment on above: Performed By: #### L 100.0100, L500.4050 #### [facility] [address] [place], [address] Potassium [Moles/Vol] 4.0 mmol/L Normal 3.5-5.1 [facility] Comment on above: Performed By: #### L 100.0100, L500.4050 #### [facility] [address] [place], [address] Sodium [Moles/Vol] 137 mmol/L Normal 136-145 [facility] Comment on above: Performed By: #### L 100.0100, L500.4050 #### [facility] [address] [place], [address] T PROT 6.4 g/dL Normal 6.4-8.2 [facility] Comment on above: Performed By: #### L 100.0100, L500.4050 #### [facility] [address] [place], [address] Urea nitrogen [Mass/Vol] 14 mg/dL Normal 7-18 [facility] Comment on above: Performed By: #### L 100.0100, L500.4050 #### [facility] [address] [place], [address] Baggage Handling Supervisor Office Visit Reporton 03-14-2024 Baggage Handling Supervisor Office Visit Report [facility] Emergency Department [address] [place], [place] [address] OFFICE VISIT Date of Service: 03/14/24 MR#: [id number] Acct: [id number] Name: MILDRED MICHEL Rep #: [id number] : 1990 Provider: CARA Cruz ams Age/Sex: 33/F Location[place] [facility] Status: Signed Intake Vital Signs 01/23/24 09:41 03/13/24 14:23 03/14/24 08:26 03/14/24 08:28 Height 5 ft 3 in 5 ft 2 in 5 ft 2 in 5 ft 2 in Weight: 253 lb 4 oz BMI 46.3 BP 115/76 Intake Visit Reasons: [facility] US @ 7:45, 38 weeks/NST Electro Optics Engineer Required: No Is patient in pain?: No Allergies bacitracin (From Neosporin (rsd-udv-wgfzx)) Allergy (Intermediate, Verified 03/14/24 08:27) Rash neomycin (From Neosporin (inq-tfh-rvgpi)) Allergy (Intermediate, Verified 03/14/24 08:27) Rash polymyxin B (From Neosporin (exp-clt-grskm)) Allergy (Intermediate, Verified 03/14/24 08:27) Rash latex [...] history of recent travel: Yes (FLA at [place]) out of state: Yes out of country: [...] in: swimming frequency: 3-4 times per week song/mormon: Rastafarian seatbelt use: always do you feel safe [...] 241 lb (more content not included)... Normal [facility] Protein+Creatinine Ratio,Uri neon 03-14-2024 PROT:CRE RATIO 246 mg/g CRE High 0-200 [facility] Comment on above: Performed By: #### L 501.0900 #### [facility] [address] [place], [address] Protein (U) [Mass/Vol] 22.7 mg/dL High <11.9 [facility] Comment on above: Performed By: #### L 501.0900 #### [facility] [address] [place], [address] UR CREAT 92.40 mg/dL Normal NO RANGE EST. [facility] Comment on above: Performed By: #### L 501.0900 #### [facility] [place], [address] Presley 03-13-2024 [facility] Telephone (FAMWS) MILDRED MICHEL ([id number]) 1990 F Date Time Provider Department 03/13/24 Bushra [facility] During your visit today, we recorded the following information about you: Violette Ngo RN 03/13/2024 1:56 PM Signed Patient calling for recommendation for symptoms of migraine headache x 4 days and feeling warm and shaky She was seen @ [facility] on 03/11 and says she was not treated due to being 38 weeks . She says she tried to call OB office today and is waiting for call back. While on phone with patient she received call back. She says OB advised ER evaluation and she is @ [facility] at this time. Violette Ngo RN Allergies As of Date: 03/13/2024 Noted Allergy Reaction BANANA 05/19/2016 8 - GI Upset LATEX 05/19/2016 2 - Rash Date Reviewed: 12/04/2023 Reviewed by: Daja Alfaro LPN - Fully Assessed Reason for Visit: Patient Question [4031] Prescriptions as of 03/13/2024 - sertraline (ZOLOFT) [...] Status:Closed by VIOLETTE NGO on 03/13/24 Normal [facility] Emergency Department Summary on 03-13-2024 Emergency Department Summary [facility] Medical Records Department [address] [place] [address] Emergency Department Summary 03/13/24 MR#: [id number] Acct: [id number] Name: MILDRED MCIHEL Rep #: [id number] : 1990 33 From: Rey Feng MD [...] Similar to her migraines. She is taken vdii-ksp-wpefvja medication at home without relief. Went to [...] similar symptoms: Yes Recent Illness/Hospitalizatio n: No PFSH [facility] Medical History Cephalgia Bleeding in early Seasonal [...] Neosporin Allergy Intermediate Rash Verified 03/13/24 14:22 (qrz-wqh-gapzq)) neomycin (From Neosporin Allergy Intermediate Rash Verified 03/13/24 14:22 (prj-yio-newgl)) polymyxin B (From Neosporin Allergy Intermediate Rash Verified 03/13/24 14:22 (uqb-svi-ysgab)) latex Allergy Rash Verified 03/13/24 14:22 banana [...] history of recent travel: Yes (FLA at [place]) out of state: Yes out of country: [...] in: swimming frequency: 3-4 times per week song/mormon: Rastafarian seatbelt use: always do you feel safe [...] Denies abdo (more content not included)... Normal [facility] Urgent Care Visit Reporton 0 03-11-2024 Urgent Care Visit Report [facility] [address] [place] [address] OFFICE VISIT Date of Service: 03/11/24 MR#: [id number] Acct: [id number] Name: MILDRED MICHEL Rep #: [id number] : 1990 Provider: KERRY Medina Age/Sex: 33/F Location: [facility] Status: Signed Intake Vital Signs 03/06/24 09:32 [...] SIDE Chief Complaint: MIGRAINE for 4 days Electro Optics Engineer Required: No Accompanied by: Self Is patient in pain?: Yes Allergies bacitracin (From Neosporin (nqr-nvs-ybzxe)) Allergy (Intermediate, Verified 03/11/24 12:19) Rash neomycin (From Neosporin (qpg-kht-kvkeb)) Allergy (Intermediate, Verified 03/11/24 12:19) Rash polymyxin B (From Neosporin (dsi-rdf-jdkdl)) Allergy (Intermediate, Verified 03/11/24 12:19) Rash latex [...] history of recent travel: Yes (FLA at [place]) out of state: Yes out of country: [...] in: swimming frequency: 3-4 times per week song/mormon: Rastafarian seatbelt use: always do you feel safe at home: Yes additional social history: - [employer] HPI HPI Chief Complaint: MIGRAINE for 4 days Details: MILDRED MICHEL, is a 33 F who presents to the office today for initial evaluation at the [facility] clinic for persistent left-sided moderate???severe headaches and bilateral ear pressure, with patient noting having a longstanding history of chronic recurring migraines. No complaints of fever, chills, lightheadedness/dizzin ess, nausea/vomiting, or chest pressure/shortness of breath/dyspnea on exertion. Non-smoker. 38 weeks gestation with an otherwise normal she so states, noting her last evaluation with PACKAGING MANAGER was 5 days ago with an unremarkable examination on that day. Aplw-uro-llzlosx acetaminophen assists with headaches making them slightly [...] grossly norm (more content not included)... Normal [facility] Rule out Beta Strep (Grp. B) on 03-08-2024 FANNY Group B Beta Streptococcus is not isolated. Normal [facility] Comment on above: Performed By: #### L 100.0100, L500.4050 #### [facility] [address] [place], [address] Baggage Handling Supervisor Office Visit Reporton 03-06-2024 Baggage Handling Supervisor Office Visit Report [facility] [address] [place] [address] OFFICE VISIT Date of Service: 03/06/24 MR#: [id number] Acct: [id number] Name: MILDRED MICHEL Rep #: [id number] : 1990 Provider: CARA Cruz ams Age/Sex: 33/F Location: [facility] Status: Signed Intake Vital Signs 01/23/24 09:41 02/29/24 08:41 03/06/24 09:28 03/06/24 09:32 Height 5 ft 3 in 5 ft 3 in 5 ft 3 in 5 ft 3 in Weight: 254 lb BMI 44.9 BP 112/76 Intake Visit Reasons: 36 WK OB/NST Electro Optics Engineer Required: No Is patient in pain?: No Allergies bacitracin (From Neosporin (vjv-dsk-azjrx)) Allergy (Intermediate, Verified 03/06/24 09:29) Rash neomycin (From Neosporin (ohs-vnn-ivckd)) Allergy (Intermediate, Verified 03/06/24 09:29) Rash polymyxin B (From Neosporin (qma-vuy-objzq)) Allergy (Intermediate, Verified 03/06/24 09:29) Rash latex [...] history of recent travel: Yes (FLA at [place]) out of state: Yes out of country: [...] in: swimming frequency: 3-4 times per week song/mormon: Rastafarian seatbelt use: always do you feel safe [...] Negative -???-???-?? (more content not included)... Normal [facility] Baggage Handling Supervisor Office Visit Reporton 02-29-2024 Baggage Handling Supervisor Office Visit Report [facility] [address] [place] [address] OFFICE VISIT Date of Service: 02/29/24 MR#: [id number] Acct: [id number] Name: MILDRED MICHEL Rep #: [id number] : 1990 Provider: MARILYN pardo Age/Sex: 33/F Location: [facility] Status: Signed Intake Vital Signs 01/23/24 09:41 02/22/24 09:32 02/29/24 08:38 02/29/24 08:41 Height 5 ft 3 in 5 ft 3 in 5 ft 3 in 5 ft 3 in Weight: 250 lb 248 lb BMI 44.2 43.9 BP 105/71 113/74 Intake Visit Reasons: NST ONLY Electro Optics Engineer Required: No Is patient in pain?: No Allergies bacitracin (From Neosporin (zcy-ecw-uvinj)) Allergy (Intermediate, Verified 02/29/24 08:38) Rash neomycin (From Neosporin (yta-hgv-jpgon)) Allergy (Intermediate, Verified 02/29/24 08:38) Rash polymyxin B (From Neosporin (jpe-wqz-ithbn)) Allergy (Intermediate, Verified 02/29/24 08:38) Rash latex [...] history of recent travel: Yes (FLA at [place]) out of state: Yes out of country: [...] in: swimming frequency: 3-4 times per week song/mormon: Rastafarian seatbelt use: always do you feel safe [...] Prot -???-???-???-? (more content not included)... Normal [facility] Progress Noteon 11-20-2023 [employer] Ticket Checker Authentication Interface Message Text MFM attending note: [...] normal. 3. Placenta is posterior, grade 0. Treatment Center Plan of Care Diagnosis: Unilateral (left) multicystic dysplastic kidney. Cell free DNA aneuploidy screening is low risk. Declined invasive testing. Plan: 1. Continued obstetrical care with her primary rip/mould operator is recommended. 2. Follow up q4 weeks to evaluate biometric parameters and renals. These are planned with the [facility]. 3. surveillance as follows: as clinically indicated. [...] at 1 month after . Please call [phone]. 9. Other follow up as clinically indicated. Chart review and preparation: 10 minutes. Face to face: 15 minutes. Documentation and care coordination: 5 minutes. Total time spent on patient care today: 30 minutes. Normal [facility] - Chemistry and C hemistry - challengeon 11-16-2023 Glucose Ql (U) Negative [facility] - Urinalysison Protein Ql (U) Negative [facility] - Chemistry and C hemistry - challengeon 10-16-2023 Glucose Ql (U) Negative [facility] - Urinalysison Protein Ql (U) Negative [facility] - Chemistry and C hemistry - challengeon 09-19-2023 Glucose Ql (U) Negative [facility] - Urinalysison Protein Ql (U) Negative [facility] - Chemistry and C hemistry - challengeOrdered By: Khoi King on 09-18-2023 Free T4 [Mass/Vol] 0.91 ng/dL 0.76-1.46 [facility] No Panel InformationOrdered By: Khoi King on 09-18-2023 Miscellaneous Test Comment MAILED SPECIMEN [facility] Thyroid Stimulating Hormone (TSH) 1.52 uIU/mL 0.358-3.74 [facility] Chlamydia trachomatis rRNA d etection by probe and target amplification methodOrdered By: Khoi King on 08-24-2023 C. trachomatis rRNA EZEKIEL+probe Ql (Unsp spec) Negative Negative [facility] Culture, urineOrdered By: Phillip King on 08-24-2023 Bacteria identified Cx Nom (U) Mixed Gram Pos & Gram Neg Org [facility] Bacteria identified Cx Nom (U) Mixed Gram Pos & Gram Neg Org [facility] - Microbiology an d Antimicrobial susceptibilityOrdered By: Khoi King on 08-24-2023 N. gonorrhoeae DNA EZEKIEL+probe Ql (Unsp spec) Negative Negative [facility] Comment on above: Performed at: =[address] [id number] Director: Lashon Block MD, Phone: [phone] Absolute lymphocyte countOrd ered By: Khoi King on 08-15-2023 Lymphocytes Auto (Unsp spec) [#/Vol] 2.80 10*3/uL 0.83-4.51 [facility] Basophil percentageOrdered B y: Khoi King on 08-15-2023 Basophils/100 WBC (Bld) 0.7 % 0-1 [facility] Eosinophils/100 WBC (Bld) 4.2 % 0-5 [facility] Neutrophils (Bld) [#/Vol] 6.0 10*3/uL 2.0-7.7 [facility] Neutrophils/100 WBC (Bld) 59.7 % 47-70 [facility] WBC (Bld) [#/Vol] 10.0 10*3/uL 4.4-11.0 [facility] Blood erythrocytes count (nu mber/volume)Ordered By: Khoi King on 08-15-2023 RBC (Bld) [#/Vol] 4.82 10*6/uL 4.2-5.4 [facility] Blood hemoglobin measurement (mass/volume)Ordered By: Khoi King on 08-15-2023 Hemoglobin (Bld) [Mass/Vol] 14.8 g/dL 12.0-15.0 [facility] Blood lymphocytes/100 leukoc ytesOrdered By: Khoi King on 08-15-2023 Lymphocytes/100 WBC (Bld) 28.0 % 19-41 [facility] Blood monocytes/100 leukocyt esOrdered By: Khoi King on 08-15-2023 Monocytes/100 WBC (Bld) 7.0 % 0-10 [facility] Blood platelet mean volumeOr dered By: Khoi King on 08-15-2023 Platelet mean volume (Bld) [Entitic vol] 10.8 fL 6.2-12.0 [facility] Determination of erythrocyte mean corpuscular volume (MCV)Ordered By: Khoi King on 08-15-2023 MCV (RBC) [Entitic vol] 87.6 fL 81-99 [facility] HIV 1 and HIV-2 antibody ass ay with HIV-1 p24 antigen detectionOrdered By: Khoi King on 08-15-2023 HIV 1+2 Ab+HIV1 p24 Ag IA Ql Non-Reactive Nonreactive [facility] Hematocrit Auto (Bld) [Volum e fraction]Ordered By: Khoi King on 08-15-2023 Hematocrit (Bld) [Volume fraction] 42.2 % 37-47 [facility] - Hematology and Cell countsOrdered By: Khoi King on 08-15-2023 Erythrocyte distribution width (RBC) [Entitic vol] 40.5 fL 35.1-43.9 [facility] Erythrocyte distribution width (RBC) [Ratio] 12.6 % 11.6-14.6 [facility] Immature granulocytes/100 WBC (Bld) 0.400 % 0.0-0.9 [facility] Comment on above: IG% - Immature Granu locytes (promyelocytes, myelocytes and metamyelocytes) > 1% indicates that a LEFT SHIFT is Present. MCH (RBC) [Entitic mass] 30.7 pg 27.0-32.0 [facility] Nucleated RBC/100 WBC (Bld) [Ratio] 0 % 0-5 [facility] MCHC Auto (RBC) [Mass/Vol]Or dered By: Khoi King on 08-15-2023 MCHC (RBC) [Mass/Vol] 35.1 g/dL 32-36 [facility] No Panel InformationOrdered By: Khoi King on 08-15-2023 Hepatitis B Surface Antigen Non-Reactive Nonreactive [facility] Hepatitis C Antibody Non-Reactive Nonreactive [facility] Comment on above: Non Reactive: < 0.8 Equivocal: >/= 0.8 to < 1.0 Reactive: >/= 1.0The CDC recommends that a reactive/equivocal HCV antibody result be followed up by the HCV Nucleic Acid Amplificationtest (963655) Rubella IgG Antibody Reactive Nonreactive [facility] Comment on above: Antibody Results Int erpretation of Immune Status Non Reactive Presumed Non-Immune Equivocal Equivocal Reactive Presumed Immune Platelets bldOrdered By: Bernardo King on 08-15-2023 Platelets (Bld) [#/Vol] 282 10*3/uL 150-450 [facility] Serum Treponema species anti body detectionOrdered By: Khoi King on 08-15-2023 Treponema sp Ab Ql (S) Non-Reactive [facility] Serum or plasma choriogonado tropin detectionOrdered By: Khoi King on 08-15-2023 HCG ( test) [place]l [address] mIU/mL <4 [facility] Comment on above: hCG levels with Gest ational AgeGestational Age hCG mIU/mL (IU/L)0.2 - 1 week 5 - 501-2 weeks 50 - 5002-3 weeks 100 - 44153-5 weeks 500 - 884792-9 weeks 1000 - 512518-3 weeks 81969 - 100,0006-8 weeks 41857 - 200,0002-3 months 21915 - 100,000 Whole blood hemoglobin A1c/t otal hemoglobin ratio (mass fraction)Ordered By: Khoi King on 08-15-2023 HbA1c (Bld) [Mass fraction] 5.3 % 3.8-5.6 [facility] Comment on above: Normal < 5.7 % Predi abetic 5.7 - 6.4 % Diabetic >or= 6.5 % Please note range changes. HCG QUAL UR B/Oon 02-28-2023 status Negative neg - pos [facility] Quality Check Yes [facility] UA DIP, URINE (POC)on 2022 BILIRUBIN UA (POCT) Negative Negative [facility] CLARITY UA (POCT) Clear [facility] COLOR UA (POCT) Yellow [facility] GLUCOSE UA (POCT) Negative Negative mg/dL [facility] HEMOGLOBIN/BLOOD UA (POCT) Negative Negative [facility] KETONE UA (POCT) Negative Negative mg/dL [facility] LEUKOCYTES UA (POCT) Negative Negative [facility] NITRITE UA (POCT) Negative Negative [facility] PH UA (POCT) 5.5 4.5 - 8.0 [facility] Protein Ql (U) Negative Negative mg/dL [facility] SPECIFIC GRAVITY UA (POCT) 1.025 1.005 - 1.030 [facility] UROBILINOGEN UA (POCT) 0.2 E.U./dL Liana l E.U./dL [facility] Serum or plasma progesterone measurement (mass/volume)on 07-29-2022 Progesterone [Mass/Vol] 4.79 ng/mL See Comment [facility] Work Phone: Comment on above: Progesterone Referen [...] 08-21-2020 IMPRESSION: Normal x-ray of the pelvis. Manager Garage: PSCB Transcribe Date/Time: Aug 21 2020 3:14P Dictated by : DMITRY GALLEGO MD This examination was interpreted and the report reviewed and electronically signed by: DMITRY GALLEGO MD on Aug 21 2020 3:14PM [facility] DIVISION OF RADIOLOGY * * *Final Report* [...] soft tissue abnormality. DIVISION OF RADIOLOGY Provider, [facility] - 08/21/2020 * * *Final Report* * [...] IMPRESSION IMPRESSION: Normal x-ray of the pelvis. Manager Garage: [employer] Transcribe Date/Time: Aug 21 2020 3:14P Dictated by : DMITRY GALLEGO MD This examination was interpreted and the report reviewed and electronically signed by: DMITRY GALLEGO MD on Aug 21 2020 3:14PM EST [facility] Radiology Study observation (narrative) [facility] XR Pelvis and Hip - left AP and Lateral frogOrdered By: [facility] Provider on 08-21-2020 [facility] Vital Signs Date Time Vital Sign Value Performing Clinician Facility 01-31-2025 07:29-0400 Body mass index (BMI) [Ratio] 37.02 kg/m2 Adam Carbajal REPOSSESSOR.JUNIOR DESIGNER Work Phone: [facility] 01-31-2025 07:29-0400 Body temperature 98.29 [degF] Adam Carbajal REPOSSESSOR.JUNIOR DESIGNER Work Phone: [facility] 01-31-2025 07:29-0400 Body weight 107.2 kg Adam Carbajal REPOSSESSOR.JUNIOR DESIGNER Work Phone: [facility] 01-31-2025 07:29-0400 Diastolic blood pressure 76 mm[Hg] Adam Carbajal REPOSSESSOR.JUNIOR DESIGNER Work Phone: [facility] 01-31-2025 07:29-0400 Heart rate 85 /min Adam Carbajal REPOSSESSOR.JUNIOR DESIGNER Work Phone: [facility] 01-31-2025 07:29-0400 Respiratory rate 18 /min Adam Carbajal REPOSSESSOR.JUNIOR DESIGNER Work Phone: [facility] 01-31-2025 07:29-0400 SaO2% (BldA) [Mass fraction] 98 % Adam Carbajal REPOSSESSOR.JUNIOR DESIGNER Work Phone: [facility] 01-31-2025 07:29-0400 Systolic blood pressure 114 mm[Hg] Adam Carbajal REPOSSESSOR.JUNIOR DESIGNER Work Phone: [facility] 12-08-2024 12:45-0400 Heart rate 78 /min Dr. Norman Kaplan DO Work Phone: [facility] 12-08-2024 12:45-0400 Respiratory rate 18 /min Dr. Norman Kaplan DO Work Phone: [facility] 12-08-2024 12:45-0400 SaO2% (BldA) [Mass fraction] 98 % Dr. Norman Kaplan DO Work Phone: [facility] 12-08-2024 10:45-0400 Body height 157.[address] Norman Kaplan DO Work Phone: [facility] 12-08-2024 10:45-0400 Body mass index (BMI) [Ratio] 43.2 kg/m2 Dr. Norman Kaplan DO Work Phone: [facility] 12-08-2024 10:45-0400 Body temperature 97.4 [degF] Dr. Norman Kaplan DO Work Phone: [facility] 12-08-2024 10:45-0400 Body weight 107.[address] Norman Kaplan DO Work Phone: [facility] 12-08-2024 10:45-0400 Diastolic blood pressure 77 mm[Hg] Dr. Norman Kaplan DO Work Phone: [facility] 12-08-2024 10:45-0400 Systolic blood pressure 119 mm[Hg] Dr. Norman Kaplan DO Work Phone: [facility] 12-08-2024 10:28-0400 Body mass index (BMI) [Ratio] 36.22 kg/m2 Temitope Navarrete APRN.JUNIOR DESIGNER Work Phone: [facility] 12-08-2024 10:28-0400 Body temperature 98.01 [degF] Temitope Navarrete APRN.JUNIOR DESIGNER Work Phone: [facility] 12-08-2024 10:28-0400 Body weight 104.9 kg Temitope Navarrete APRN.JUNIOR DESIGNER Work Phone: [facility] 12-08-2024 10:28-0400 Diastolic blood pressure 72 mm[Hg] Temitope Navarrete APRN.JUNIOR DESIGNER Work Phone: [facility] 12-08-2024 10:28-0400 Heart rate 80 /min Temitope Navarrete APRN.JUNIOR DESIGNER Work Phone: [facility] 12-08-2024 10:28-0400 Respiratory rate 16 /min Temitope Navarrete APRN.JUNIOR DESIGNER Work Phone: [facility] 12-08-2024 10:28-0400 SaO2% (BldA) [Mass fraction] 99 % Temitope Navarrete APRN.JUNIOR DESIGNER Work Phone: [facility] 12-08-2024 10:28-0400 Systolic blood pressure 106 mm[Hg] Temitope Navarrete REPOSSESSOR.JUNIOR DESIGNER Work Phone: [facility] 10-08-2024 10:08-0500 Body mass index (BMI) [Ratio] 39.12 kg/m2 Ana Camejo APRN.JUNIOR DESIGNER Work Phone: [facility] 10-08-2024 10:08-0500 Body temperature 98.4 [degF] Ana Camejo APRN.JUNIOR DESIGNER Work Phone: [facility] 10-08-2024 10:08-0500 Body weight 113.3 kg Ana Camejo APRN.JUNIOR DESIGNER Work Phone: [facility] 10-08-2024 10:08-0500 Diastolic blood pressure 76 mm[Hg] Ana Camejo APRN.JUNIOR DESIGNER Work Phone: [facility] 10-08-2024 10:08-0500 Heart rate 96 /min Ana Camejo REPOSSESSOR.JUNIOR DESIGNER Work Phone: [facility] 10-08-2024 10:08-0500 Respiratory rate 16 /min Ana Camejo APRN.JUNIOR DESIGNER Work Phone: [facility] 10-08-2024 10:08-0500 SaO2% (BldA) [Mass fraction] 97 % Ana Camejo APRN.JUNIOR DESIGNER Work Phone: [facility] 10-08-2024 10:08-0500 Systolic blood pressure 110 mm[Hg] Ana Camejo REPOSSESSOR.JUNIOR DESIGNER Work Phone: [facility] 06-04-2024 15:38-0400 Body mass index (BMI) [Ratio] 37.59 kg/m2 Monica Gerard REPOSSESSOR.JUNIOR DESIGNER Work Phone: [facility] 06-04-2024 15:38-0400 Body weight 108.86 kg Monica Gerard REPOSSESSOR.JUNIOR DESIGNER Work Phone: [facility] 06-04-2024 15:38-0400 Diastolic blood pressure 72 mm[Hg] Monica Gerard REPOSSESSOR.JUNIOR DESIGNER Work Phone: [facility] 06-04-2024 15:38-0400 Heart rate 87 /min Monica Gerard REPOSSESSOR.JUNIOR DESIGNER Work Phone: [facility] 06-04-2024 15:38-0400 Respiratory rate 16 /min Monica Gerard REPOSSESSOR.JUNIOR DESIGNER Work Phone: [facility] 06-04-2024 15:38-0400 SaO2% (BldA) [Mass fraction] 99 % Monica Gerard REPOSSESSOR.JUNIOR DESIGNER Work Phone: [facility] 06-04-2024 15:38-0400 Systolic blood pressure 126 mm[Hg] Monica Gerard REPOSSESSOR.JUNIOR DESIGNER Work Phone: [facility] 12-11-2023 08:33-0400 Body height 160.02 cm PA NA Collins PA Work Phone: [facility] 12-11-2023 08:33-0400 Body mass index (BMI) [Ratio] 43.4 kg/m2 PA NA Collins PA Work Phone: [facility] 12-11-2023 08:33-0400 Body weight 111.24 kg PA NA Collins PA Work Phone: [facility] 12-11-2023 08:33-0400 Diastolic blood pressure 78 mm[Hg] PA NA Collins PA Work Phone: [facility] 12-11-2023 08:33-0400 Systolic blood pressure 120 mm[Hg] PA NA Collins PA Work Phone: [facility] 12-04-2023 12:52-0400 Body weight 111.13 kg NA Collins PA-C Work Phone: [facility] 12-04-2023 12:52-0400 Diastolic blood pressure 60 mm[Hg] NA Collins PA-C Work Phone: [facility] 12-04-2023 12:52-0400 Heart rate 85 /min NA Collins PA-C Work Phone: [facility] 12-04-2023 12:52-0400 Respiratory rate 16 /min NA Collins PA-C Work Phone: [facility] 12-04-2023 12:52-0400 SaO2% (BldA) [Mass fraction] 98 % NA Collins PA-C Work Phone: [facility] 12-04-2023 12:52-0400 Systolic blood pressure 104 mm[Hg] NA Collins PA-C Work Phone: [facility] 11-16-2023 12:01-0400 Body mass index (BMI) [Ratio] 43.2 kg/m2 PA NA Collins PA Work Phone: [facility] 11-16-2023 12:01-0400 Body weight 110.67 kg PA NA Collins PA Work Phone: [facility] 11-16-2023 12:01-0400 Diastolic blood pressure 75 mm[Hg] PA NA Collins PA Work Phone: [facility] 11-16-2023 12:01-0400 Systolic blood pressure 116 mm[Hg] PA NA Collins PA Work Phone: [facility] 10-16-2023 14:22-0500 Body mass index (BMI) [Ratio] 42.5 kg/m2 PA NA Collins PA Work Phone: [facility] 10-16-2023 14:22-0500 Body weight 108.91 kg PA NA Collins PA Work Phone: [facility] 10-16-2023 14:22-0500 Diastolic blood pressure 72 mm[Hg] PA NA Collins PA Work Phone: [facility] 10-16-2023 14:22-0500 Systolic blood pressure 124 mm[Hg] PA NA Collins PA Work Phone: 2(086)651-654922 [place] [address] 09-19-2023 14:58-0500 Body height 160.02 cm PA NA Collins PA Work Phone: 7(977)214-941722 [place] [address] 09-19-2023 14:58-0500 Body mass index (BMI) [Ratio] 41.6 kg/m2 PA NA Collins PA Work Phone: 4(860)165-654122 [place] [address] 09-19-2023 14:58-0500 Diastolic blood pressure 75 mm[Hg] PA NA Collins PA Work Phone: 8(961)278-684222 [place] [address] 09-19-2023 14:58-0500 Systolic blood pressure 114 mm[Hg] PA NA Collins PA Work Phone: 2(756)880-983822 [place] [address] 09-19-2023 14:42-0500 Body weight 106.7 kg PA NA Collins PA Work Phone: 9(432)483-698422 [place] [address] 08-24-2023 13:18-0500 Body height 160.02 cm PA NA Collins PA Work Phone: 4(729)399-837922 [place] [address] 08-24-2023 13:17-0500 Body mass index (BMI) [Ratio] 42.7 kg/m2 PA NA Collins PA Work Phone: 8(138)749-428522 [place] [address] 08-24-2023 13:17-0500 Body weight 109.48 kg PA NA Collins PA Work Phone: [facility] 08-24-2023 13:17-0500 Diastolic blood pressure 69 mm[Hg] PA NA Collins PA Work Phone: [facility] 08-24-2023 13:17-0500 Systolic blood pressure 118 mm[Hg] PA NA Collins PA Work Phone: [facility] 04-09-2023 09:28-0400 Body temperature 98.49 [degF] Zelda Sonya REPOSSESSOR.JUNIOR DESIGNER Work Phone: [facility] 04-09-2023 09:28-0400 Body weight 108.05 kg Zelda Sonya REPOSSESSOR.JUNIOR DESIGNER Work Phone: [facility] 04-09-2023 09:28-0400 Diastolic blood pressure 82 mm[Hg] Zelda Sonya REPOSSESSOR.JUNIOR DESIGNER Work Phone: [facility] 04-09-2023 09:28-0400 Heart rate 100 /min Zelda Sonya REPOSSESSOR.JUNIOR DESIGNER Work Phone: [facility] 04-09-2023 09:28-0400 Respiratory rate 21 /min Zelda Sonya REPOSSESSOR.JUNIOR DESIGNER Work Phone: [facility] 04-09-2023 09:28-0400 SaO2% (BldA) [Mass fraction] 99 % Zelda Sonya REPOSSESSOR.JUNIOR DESIGNER Work Phone: [facility] 04-09-2023 09:28-0400 Systolic blood pressure 122 mm[Hg] Zelda Sonya REPOSSESSOR.JUNIOR DESIGNER Work Phone: [facility] 02-28-2023 07:24-0400 Body temperature 97.81 [degF] Magy Praisler-Wood REPOSSESSOR.JUNIOR DESIGNER Work Phone: [facility] 02-28-2023 07:24-0400 Body weight 108.86 kg Magy Praisler-Wood REPOSSESSOR.JUNIOR DESIGNER Work Phone: [facility] 02-28-2023 07:24-0400 Diastolic blood pressure 74 mm[Hg] Magy Praisler-Wood REPOSSESSOR.JUNIOR DESIGNER Work Phone: [facility] 02-28-2023 07:24-0400 Heart rate 88 /min Magy Praisler-Wood REPOSSESSOR.JUNIOR DESIGNER Work Phone: [facility] 02-28-2023 07:24-0400 Respiratory rate 16 /min Magy Praisler-Wood REPOSSESSOR.JUNIOR DESIGNER Work Phone: [facility] 02-28-2023 07:24-0400 SaO2% (BldA) [Mass fraction] 98 % Magy Stein REPOSSESSOR.JUNIOR DESIGNER Work Phone: [facility] 02-28-2023 07:24-0400 Systolic blood pressure 122 mm[Hg] Magy Stein REPOSSESSOR.JUNIOR DESIGNER Work Phone: [facility] 01-13-2022 12:39-0400 Body temperature 98.6 [degF] Zelda Hassan REPOSSESSOR.JUNIOR DESIGNER Work Phone: [facility] 01-13-2022 12:39-0400 Body weight 113.4 kg Zelda Hassan REPOSSESSOR.JUNIOR DESIGNER Work Phone: [facility] 01-13-2022 12:39-0400 Diastolic blood pressure 66 mm[Hg] Zelda Giangk REPOSSESSOR.JUNIOR DESIGNER Work Phone: [facility] 01-13-2022 12:39-0400 Heart rate 102 /min Zelda Hassan REPOSSESSOR.JUNIOR DESIGNER Work Phone: [facility] 01-13-2022 12:39-0400 Respiratory rate 16 /min Zelda Sonya REPOSSESSOR.JUNIOR DESIGNER Work Phone: [facility] 01-13-2022 12:39-0400 SaO2% (BldA) [Mass fraction] 97 % Zelda Hassan REPOSSESSOR.JUNIOR DESIGNER Work Phone: [facility] 01-13-2022 12:39-0400 Systolic blood pressure 118 mm[Hg] Zelda Sonya REPOSSESSOR.JUNIOR DESIGNER Work Phone: [facility] Encounters Encounter Date Encounter Type Care Provider Facility Start: 02-27-2025 ambulatory Zebulun Beam VSC Facili ty:[facility] Start: 02-26-2025 ambulatory Zebulun Beam VSC Facili ty:[facility] Start: 02-25-2025 ambulatory Facility:1 [id number] Start: 01-31-2025 End: 01-31-2025 Office outpatient visit 15 minutes Adam Carbajal RANGEL.JUNIOR DESIGNER Work Phone: [facility] Comment on above: Hand foot and mouth disease (Primary Dx) Start: 01-31-2025 End: 01-31-2025 ambulatory [facility] Facility:[facility] Start: 01-19-2025 End: 01-20-2025 Refill Monica Gerard APRN.JUNIOR DESIGNER Work Phone: [facility] Comment on above: Refill Request Start: 12-08-2024 End: 12-08-2024 Emergency department patient visit Dr. Norman Kaplan DO Work Phone: -Emergency Department Work Phone: Start: 12-08-2024 End: 12-08-2024 ambulatory MARK COLLINS Facility:[facility] Start: 12-08-2024 End: 12-08-2024 Patient encounter procedure Temitope Navarrete APRN.JUNIOR DESIGNER Work Phone: [facility] Comment on above: Headache, unspecifie d headache type (Primary Dx); Vomiting and diarrhea Start: 10-08-2024 End: 10-08-2024 Subsequent hospital visit by physician X[facility] Work Phone: Radiology Comment on above: Acute cough [R05.1] Start: 10-08-2024 End: 10-08-2024 ambulatory [facility] Facility:[facility] Start: 10-08-2024 End: 10-08-2024 Patient encounter procedure Ana Camejo APRN.JUNIOR DESIGNER Work Phone: [facility] Comment on above: Community acquired p neumonia, unspecified laterality (Primary Dx); Acute cough Start: 10-03-2024 End: 10-04-2024 Telephone encounter Monica Gerard APRN.JUNIOR DESIGNER Work Phone: [facility] Comment on above: FMLA Paperwork (Due by 10/05/24) Start: 06-04-2024 End: 06-04-2024 Office outpatient visit 25 minutes Monica Gerard APRN.JUNIOR DESIGNER Work Phone: Family [facility] Comment on above: Adjustment reaction with anxiety and depression (Primary Dx); Need for influenza vaccination; Gastritis with hemorrhage, unspecified chronicity, unspecified gastritis type; Hypothyroidism, acquired Start: 06-04-2024 End: 06-04-2024 ambulatory MARK COLLINS Facility:[facility] Start: 05-10-2024 End: 05-10-2024 ambulatory Gudelia Dominguez Facility:[facility] Start: 04-10-2024 End: 04-10-2024 ambulatory Albertina Wilkerson NP Facility:[facility] Start: 03-26-2024 ambulatory Bushra PAYNE Fac ility:[facility] Start: 03-25-2024 End: 03-25-2024 ambulatory Bushra PAYNE Facility:[facility] Start: 03-21-2024 ambulatory Bushra PAYNE Fac ility:[facility] Start: 03-20-2024 ambulatory Bushra PAYNE Fac ility:[facility] Start: 03-20-2024 End: 03-23-2024 Evaluation and management of inpatient Gudelia Poly Euceda Facility:[facility] Start: 03-19-2024 End: 03-19-2024 ambulatory Bushra PAYNE Facility:[facility] Start: 03-14-2024 End: 03-14-2024 ambulatory MARK COLLINS [facility] Start: 03-14-2024 End: 03-14-2024 ambulatory Bushra PAYNE Facility:[facility] Start: 03-13-2024 End: 03-13-2024 Emergency department patient visit Bushra PAYNE Facility:[facility] Start: 03-13-2024 Telephone encounter Bushra Collins PA-C Work Phone: [facility] Comment on above: Patient Question Start: 03-11-2024 End: 03-11-2024 ambulatory Bushra PAYNE Facility:[facility] Start: 03-06-2024 End: 03-06-2024 ambulatory Bushra PAYNE Facility:[facility] Start: 03-06-2024 End: 03-06-2024 ambulatory Khoi King Facility:[facility] Start: 02-29-2024 End: 02-29-2024 ambulatory Bushra PAYNE Facility:[facility] Start: 02-15-2024 End: 02-15-2024 ambulatory MARK BROWNING COLLINS [facility] Start: 01-18-2024 End: 01-18-2024 ambulatory MARK BROWNING COLLINS [facility] Start: 12-21-2023 End: 12-21-2023 ambulatory MARK BROWNING COLLINS [facility] Start: 12-11-2023 End: 12-11-2023 ambulatory KERRY PAYNE Work Phone: [facility] Work Phone: Start: 12-11-2023 End: 12-11-2023 Patient encounter procedure KERRY PAYNE Work Phone: [facility] Work Phone: Start: 12-04-2023 End: 12-04-2023 Patient encounter procedure Bushra Collins PA-C Work Phone: [facility] Comment on above: Female infertility a ssociated with anovulation (Primary Dx); PCOS (polycystic ovarian syndrome); Passive suicidal ideations; ABHILASH (generalized anxiety disorder); Insomnia, unspecified type; Adjustment reaction with anxiety and depression; Obesity, Class III, BMI >= 40; Chronic left hip pain; Vitamin D deficiency Start: 11-20-2023 End: 11-20-2023 ambulatory CAREY NASSAR [facility] Start: 11-16-2023 End: 11-16-2023 Patient encounter procedure KERRY PAYNE Work Phone: [facility] Work Phone: Start: 11-07-2023 End: 11-07-2023 ambulatory MD [facility] Start: 10-16-2023 End: 10-16-2023 Patient encounter procedure KERRY PAYNE Work Phone: [facility] Work Phone: Start: 09-19-2023 End: 09-19-2023 Patient encounter procedure KERRY PAYNE Work Phone: [facility] Work Phone: Start: 09-18-2023 End: 09-18-2023 ambulatory PA Bushra PAYNE Work Phone: [facility] Work Phone: Start: 09-18-2023 End: 09-18-2023 Patient encounter procedure KERRY PAYNE Work Phone: [facility] Work Phone: Start: 08-24-2023 End: 08-24-2023 ambulatory PA Bushra PAYNE Work Phone: [facility] Work Phone: Start: 08-24-2023 End: 08-24-2023 Patient encounter procedure KERRY PAYNE Work Phone: [facility] Spec[facility] Work Phone: Start: 08-24-2023 End: 08-24-2023 Patient encounter procedure KERRY PAYNE Work Phone: [facility] Work Phone: Start: 08-15-2023 End: 08-15-2023 ambulatory [facility] Work Phone: Start: 08-15-2023 End: 08-15-2023 Patient encounter procedure [facility] Work Phone: Start: 08-11-2023 Telephone encounter Bushra Collins PA-C Work Phone: [facility] Comment on above: Patient Question Start: 07-21-2023 Telephone encounter Bushra Collins PA-C Work Phone: [facility] Comment on above: requesting lab order Start: 04-09-2023 End: 04-09-2023 Patient encounter procedure Zelda Hassan APRN.CNP Work Phone: [facility] Comment on above: URI with cough and c ongestion (Primary Dx); Wheezing Start: 03-01-2023 Telephone encounter Mauro Shirley PA Work Phone: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 the risks and benefits of -- and alternatives to -- treatment through a remote evaluation and consents to proceed with the evaluation remotely. Had started not feeling well. Last Wed. Had a few episodes of vomiting and they dry heaving. Had loose stools one day and then improved Started with vomiting and improved. Went back to work on Monday. [place] ok over the weekend. Woke up this [...] Bilateral 1995 WART REMOVAL WHI left foot FAMILY HISTORY [...] Jony Lawson MD documented in this encounter [facility] 12-14-2022 Miscellaneous Notes Patient has been identified by name and date of : Yes Patient phones for refill(s): Requested Prescriptions Pending Prescriptions Disp Refills sertraline (ZOLOFT) 100 mg tablet 90 tablet 1 Sig: Take 1 tablet by mouth once daily. Date of last office visit in primary care: 11/16/2021 Please advise. Thank you. Daja Alfaro LPN documented in this encounter [facility] 04-25-2022 Miscellaneous Notes Patient notified that completed form is ready for picker/puller at [facility]. Patient has been identified by name and date of : Yes Type of form: FMLA Form received via: Walk in When form is completed, notify by phone that form is ready for picker/puller. Form has been forwarded to: Provider's desk. Provider name: Horacio Mckeon Ma documented in this encounter [facility] 01-13-2022 Instructions Zelda Hassan APRN.CNP - 01/13/2022 12:46 PM EDT Keflex as ordered Triamcinolone cream 2-3 times a day as needed for itching Benadryl 25 mg as needed for itching If worsening redness and streaking to ED for further management If no resolution in 2 weeks follow up with PCP documented in this encounter [facility] 01-13-2022 History of Presen t illness Narrative Images from the original note were not included. Subjective The history is provided by the patient. No multi disciplined language analyst was used. JULIO Michel is a 31 year old female [...] have confirmed and edited as necessary, the [facility] Review of Systems Constitutional: Negative for chills [...] Zelda Hassan APRN.AIMEE documented in this encounter [facility] 01-13-2022 Miscellaneous Notes Protocol recommends see provider [...] then. Protocols used: RASH OR REDNESS - [id number] documented in this encounter [facility] 12-09-2021 Miscellaneous Notes Follow up in 4-6 weeks office or virtual. The following approved medication requests have been transmitted electronically. Signed Prescriptions Disp Refills sertraline (ZOLOFT) 100 mg tablet 90 tablet 1 Sig: Take 1 tablet by mouth once daily. Bushra Collins PA-C See message from pt and advise. Jennifer Burns Ma documented in this encounter [facility] 08-21-2020 History of Presen t illness Narrative [...] 2020 2:29 PM documented in this encounter [facility] Evaluation note Diagnosis Rash- Primary Rash and other nonspecific skin eruption Redness of skin Unspecified erythematous condition [facility] noteNo assessment information [facility] Work Phone: [facility]* Diagnosis Nausea- Primary Nausea alone Gastritis with hemorrhage, unspecified chronicity, unspecified gastritis type documented in this encounter [facility] note* Diagnosis Vitamin D deficiency- Primary Unspecified vitamin D deficiency documented in this encounter [facility] note* Diagnosis Pelvic pressure in female- Primary Other specified symptom associated with female genital organs documented in this encounter [facility] note* Diagnosis URI with cough and congestion- Primary Wheezing documented in this encounter [facility] note* Diagnosis Positive test- Primary examination or test, positive result documented in this encounter [facility] note* Diagnosis Onset Date Resolution Status Anovulation acute Asthma acute Bleeding in early acute Hypothyroidism acute Infertility acute Obesity affecting acute PCOS (polycystic ovarian syndrome) acute acute Supervision of high-risk acute Varicose vein of leg acute Vitamin D deficiency acute [facility] Work Phone: Evaluation note* Diagnosis Onset Date [...] of leg acute Vitamin D deficiency acute [facility] Work Phone: Evaluation note* Diagnosis Female infertility [...] vitamin D deficiency documented in this encounter [facility] note* Diagnosis Onset Date Resolution Status Asthma [...] high-risk acute Varicose vein of leg acute [facility] Work Phone: Evaluation note* Diagnosis Adjustment reaction with anxiety and depression- Primary Adjustment disorder with mixed anxiety and depressed mood Need for influenza vaccination Need for prophylactic vaccination and inoculation against influenza Gastritis with hemorrhage, unspecified chronicity, unspecified gastritis type Hypothyroidism, acquired Unspecified hypothyroidism documented in this encounter [facility] note* Diagnosis Hip pain Pain in joint, pelvic region and thigh documented in this encounter [facility] note* Diagnosis Community acquired pneumonia, unspecified laterality- Primary Acute cough documented in this encounter [facility] note* Diagnosis Headache, unspecified headache type- Primary Vomiting and diarrhea Vomiting alone documented in this encounter [facility] note* Diagnosis Adjustment reaction with anxiety and depression Adjustment disorder with mixed anxiety and depressed mood documented in this encounter [facility] note* Diagnosis Hand foot and mouth disease- Primary documented in this encounter [facility] for referral (narrative)No reason for referral information availableWMercy [facility] Work Phone: Chief Complaint and Reason for [...] Date/ Time Living Will No July 25 10:11am Power of Pipe Cleaner No July 25, 2019 10:11am Advance Directive Response Recorded Date/ Time Living Will No July 25 11:11am Power of Pipe Cleaner No July 25, 2019 11:11am Advance Directive Response Recorded Date/ Time Living Will No December 08, 2024 12:31pm Do you have a Healthcare Power of Pipe Cleaner? No December 08, 2024 12:31pm Summary Purpose Additional Source Comments Source Comments (unrecognize d section and content) In the event this informatio n is protected by the Federal Confidentiality of Alcohol and Drug Abuse Patient Records regulations: The Federal rules restrict any use of the information to criminally investigate or prosecute any alcohol or drug abuse patient.[facility] the event this information is protected by the Federal Confidentiality of Alcohol and Drug Abuse Patient Records regulations: The Federal rules restrict any use of the information to criminally investigate or prosecute any alcohol or drug abuse patient.[facility] the event this information is protected by the Federal Confidentiality of Alcohol and Drug Abuse Patient Records regulations: The Federal rules restrict any use of the information to criminally investigate or prosecute any alcohol or drug abuse patient.[facility] the event this information is protected by the Federal Confidentiality of Alcohol and Drug Abuse Patient Records regulations: The Federal rules restrict any use of the information to criminally investigate or prosecute any alcohol or drug abuse patient.[facility] the event this information is protected by the Federal Confidentiality of Alcohol and Drug Abuse Patient Records regulations: The Federal rules restrict any use of the information to criminally investigate or prosecute any alcohol or drug abuse patient.[facility] the event this information is protected by the Federal Confidentiality of Alcohol and Drug Abuse Patient Records regulations: The Federal rules restrict any use of the information to criminally investigate or prosecute any alcohol or drug abuse patient.[facility] the event this information is protected by the Federal Confidentiality of Alcohol and Drug Abuse Patient Records regulations: The Federal rules restrict any use of the information to criminally investigate or prosecute any alcohol or drug abuse patient.[facility] the event this information is protected by the Federal Confidentiality of Alcohol and Drug Abuse Patient Records regulations: The Federal rules restrict any use of the information to criminally investigate or prosecute any alcohol or drug abuse patient.[facility] the event this information is protected by the Federal Confidentiality of Alcohol and Drug Abuse Patient Records regulations: The Federal rules restrict any use of the information to criminally investigate or prosecute any alcohol or drug abuse patient.[facility] the event this information is protected by the Federal Confidentiality of Alcohol and Drug Abuse Patient Records regulations: The Federal rules restrict any use of the information to criminally investigate or prosecute any alcohol or drug abuse patient.[facility] the event this information is protected by the Federal Confidentiality of Alcohol and Drug Abuse Patient Records regulations: The Federal rules restrict any use of the information to criminally investigate or prosecute any alcohol or drug abuse patient.[facility] the event this information is protected by the Federal Confidentiality of Alcohol and Drug Abuse Patient Records regulations: The Federal rules restrict any use of the information to criminally investigate or prosecute any alcohol or drug abuse patient.[facility] the event this information is protected by the Federal Confidentiality of Alcohol and Drug Abuse Patient Records regulations: The Federal rules restrict any use of the information to criminally investigate or prosecute any alcohol or drug abuse patient.[facility] the event this information is protected by the Federal Confidentiality of Alcohol and Drug Abuse Patient Records regulations: The Federal rules restrict any use of the information to criminally investigate or prosecute any alcohol or drug abuse patient.[facility] the event this information is protected by the Federal Confidentiality of Alcohol and Drug Abuse Patient Records regulations: The Federal rules restrict any use of the information to criminally investigate or prosecute any alcohol or drug abuse patient.[facility] the event this information is protected by the Federal Confidentiality of Alcohol and Drug Abuse Patient Records regulations: The Federal rules restrict any use of the information to criminally investigate or prosecute any alcohol or drug abuse patient.[facility] the event this information is protected by the Federal Confidentiality of Alcohol and Drug Abuse Patient Records regulations: The Federal rules restrict any use of the information to criminally investigate or prosecute any alcohol or drug abuse patient.[facility] the event this information is protected by the Federal Confidentiality of Alcohol and Drug Abuse Patient Records regulations: The Federal rules restrict any use of the information to criminally investigate or prosecute any alcohol or drug abuse patient.[facility] the event this information is protected by the Federal Confidentiality of Alcohol and Drug Abuse Patient Records regulations: The Federal rules restrict any use of the information to criminally investigate or prosecute any alcohol or drug abuse patient.[facility] the event this information is protected by the Federal Confidentiality of Alcohol and Drug Abuse Patient Records regulations: The Federal rules restrict any use of the information to criminally investigate or prosecute any alcohol or drug abuse patient.[facility] the event this information is protected by the Federal Confidentiality of Alcohol and Drug Abuse Patient Records regulations: The Federal rules restrict any use of the information to criminally investigate or prosecute any alcohol or drug abuse patient.[facility] the event this information is protected by the Federal Confidentiality of Alcohol and Drug Abuse Patient Records regulations: The Federal rules restrict any use of the information to criminally investigate or prosecute any alcohol or drug abuse patient.[facility] Care Teams (unrecognized sec tion and content) Ambulette Driver Relationship Specialty Start Date End Date Bushra Collins PA-C [address] [place], [place] [id number] PCP - General Family Practice 05/21/18 Ambulette Driver Relationship Specialty Start Date End Date Bushra Collins PA-C [address] [place], [place] [address] PCP - General Family Practice 05/21/18 Ambulette Driver Relationship Specialty Start Date End Date Bushra Collins PA-C [address] [facility] [place] [address] PCP - General Family Practice 05/21/18 Ambulette Driver Relationship Specialty Start Date End Date Bushra Collins PA-C [address] [facility] [place] [address] PCP - General Family Medicine 05/21/18 Ambulette Driver Relationship Specialty Start Date End Date Bushra Collins PA-C [address] [facility] [place] [address] PCP - General Family Medicine 05/21/18 Ambulette Driver Relationship Specialty Start Date End Date Bushra Collins PA-C [address] [facility] [place] [address] PCP - General Family Medicine 05/21/18 Ambulette Driver Relationship Specialty Start Date End Date Bushra Collins PA-C [address] [facility] [place] [address] PCP - General Family Medicine 05/21/18 Ambulette Driver Relationship Specialty Start Date End Date Bushra Collins PA-C [address] [facility] [place] [address] PCP - General Family Medicine 05/21/18 Ambulette Driver Relationship Specialty Start Date End Date Bushra Collins PA-C [address] [facility] [place] [address] PCP - General Family Medicine 05/21/18 Ambulette Driver Relationship Specialty Start Date End Date Bushra Collins PA-C [address] [facility] [place] [address] PCP - General Family Medicine 05/21/18 Ambulette Driver Relationship Specialty Start Date End Date Bushra Collins PA-C [address] [place] [address] PCP - General Family Medicine 05/21/18 Ambulette Driver Relationship Specialty Start Date End Date Bushra Collins PA-C [address] [place], [place] [address] PCP - General Family Medicine 05/21/18 Team [...] CNM Attending Provider, Referring Pro vider Active Ambulette Driver Relationship Specialty Start Date End Date Bushra Collins PA-C [address] [place], [place] [address] PCP - General Family Medicine 05/21/18 Team Status: Inactive Member Role Status Dates KERRY Estrella Primary Care Provider, Referri ng Provider Active Albertina Wilkerson NP, OSTEOPATHY DOCTOR-C Attending Provider Active Team Status: Inactive Member Role Status Dates KERRY Estrella Primary Care Provider, Referri ng Provider Active Dr. Carey Nassar MD Attending Provider Active Team Status: Inactive Member Role Status Dates KERRY Estrella Primary Care Provider Active Dr. Carey Nassar MD Attending Provider, Referr ing Provider Active Ambulette Driver Relationship Specialty Start Date End Date Bushra Collins PA-C [address] [place], [place] [address] PCP - General Family Medicine 05/21/18 Ambulette Driver Relationship Specialty Start Date End Date Bushra Collins PA-C [address] [place], [place] [address] PCP - General Family Medicine 05/21/18 Ambulette Driver Relationship Specialty Start Date End Date Bushra Collins PA-C [address] [facility] [place] [address] PCP - General Family Medicine 05/21/18 Ambulette Driver Relationship Specialty Start Date End Date Mark Collins PA-C PCP - General Family Medicine 05/21/18 Monica Gerard, REPOSSESSOR.JUNIOR DESIGNER [address] [place] [address] Certified Alcohol Drug Counselor Family Medicine 08/09/24 Daja Preston REPOSSESSOR.JUNIOR DESIGNER [address] [place] [address] Certified Alcohol Drug Counselor [facility] 08/09/24 Ambulette Driver Relationship Specialty Start Date End Date Monica Gerard, REPOSSESSOR.JUNIOR DESIGNER [address] [place] [address] Certified Alcohol Drug Counselor Family Medicine 08/09/24 Daja Preston, REPOSSESSOR.JUNIOR DESIGNER [address] [facility] [place] [address] Certified Alcohol Drug Counselor Family Medicine 08/09/24 Ambulette Driver Relationship Specialty Start Date End Date Monica Gerard, REPOSSESSOR.JUNIOR DESIGNER [address] [place] [address] Certified Alcohol Drug Counselor Family Medicine 08/09/24 Daja Preston REPOSSESSOR.JUNIOR DESIGNER [address] [facility] [place] [address] Certified Alcohol Drug Counselor Family Medicine 08/09/24 Team Status: Active Member Role Status Dates No Primary Care Physician Primary Care Provider Active Team Status: Inactive Member Role Status Dates Dr. Norman Kaplan DO Emergency Provider Active Start: December 08, 2024 End: December 08, 2024 No Primary Care Physician Primary Care Provider Active Start: December 08, 2024 End: December 08, 2024 Ambulette Driver Relationship Specialty Start Date End Date Monica Gerard, REPOSSESSOR.JUNIOR DESIGNER [address] [place] [address] [facility] 08/09/24 Daja Preston, REPOSSESSOR.JUNIOR DESIGNER [address] [facility] [place] [address] [facility] 08/09/24 Ambulette Driver Relationship Specialty Start Date End Date Monica Gerard, REPOSSESSOR.JUNIOR DESIGNER [address] [facility], [place] [address] [facility] 08/09/24 Daja Preston, REPOSSESSOR.JUNIOR DESIGNER [address] [facility] [place] [address] [facility] 08/09/24 Ambulette Driver Relationship Specialty Start Date End Date Monica Gerard, REPOSSESSOR.JUNIOR DESIGNER [address] [place] [address] [facility] 08/09/24 Daja Preston, REPOSSESSOR.JUNIOR DESIGNER [address] [facility] [place] [address] [facility] 08/09/24 Reason for Visit (unrecogniz ed section [...] Procedures EST SAME DAY Bushra Collins PA-C [address] [place] [address] Magy Stein APRN.JUNIOR DESIGNER [address] [place] [address] Referral ID Status Reason Start Date Expiration Date Visits Re quested Visits Authorized [id number] Closed 02/28/2023 09/03/2023 1 1 Reason Comments [...] 30 MIN 4C EST Bushra Collins PA-C [address] [place] [address] Bushra Collins PA-C [address] [place] [address] Referral ID Status Reason Start Date Expiration Date Visits Re quested Visits Authorized [id number] Closed 12/04/2023 09/03/2024 1 1 Reason Onset Date Comments 6 Month Exam Immunizations 06/04/2024 Flu vaccination Specialty Diagnoses / Procedures Referred By Contac t Referred To Contact Family Medicine / FAMILY MEDICINE Diagnoses Female infertility associated with anovulation 6 month follow up Procedures OFFICE/OUTPATIENT ESTABLISHED MOD MDM 30 MIN 4C EST Self Bushra Collins PA-C [address] [place] [address] Referral ID Status Reason Start Date Expiration Date Visits Re quested Visits Authorized [id number] Closed 06/04/2024 09/03/2024 1 1 Reason Comments FMLA Paperwork Due by 10/05/24 Reason Comments Chest Congestion cough, sob and heada quique x 5 days, increased x 1 day Specialty Diagnoses / Procedures Referred By Contac t Referred To Contact Family Medicine / [facility] Diagnoses Cough cough, chest congestion, sob, headache Procedures OFFICE/OUTPATIENT ESTABLISHED MOD MDM 30 MIN EST SAME DAY Pcp, RANGEL Garsia Jonathan, APRN.JUNIOR DESIGNER [address] [place] [address] Referral ID Status Reason Start Date Expiration Date Visits Re quested Visits Authorized [id number] Closed 10/08/2024 09/03/2025 1 1 Specialty Diagnoses / Procedures Referred By Contac t Referred To Contact Radiology / [facility] Diagnoses Cough xr chest rm 1 Procedures RADIOLOGIC EXAM CHEST 2 VIEWS XR CHEST Ana Camejo APRN.JUNIOR DESIGNER [address] [place] [address] [facility] [address] [place] [address] Referral ID Status Reason Start Date Expiration Date Visits Re quested Visits Authorized [id number] Closed 10/08/2024 09/03/2025 1 1 Reason Comments [...] section and content) DATE CREATED AUTHOR 03/20/2024 [facility] DATE CREATED AUTHOR AUTHOR'S ORGANIZ ATION 02/02/2025 [facility] DATE CREATED AUTHOR AUTHOR'S ORGANIZ ATION 02/26/2025 [facility] DATE CREATED AUTHOR AUTHOR'S ORGANIZ ATION 02/27/2025 [facility] FOR RECORDS PERTAINING TO PATIENTS WHO ARE [...] BE BASED ON THE PRIMARY CLINICAL RECORDS. [facility]. provides no warranty or guarantee of the accuracy or completeness of information in this document.
[2025-02-28 21:30] LABS: Anion Gap 11 (5-15); BUN 12 mg/dL (4-19); BUN/Creat Ratio 14.3 RATIO (10-20); Calcium,Total 8.9 mg/dL (7.6-11.0); Chloride 105 mmol/L (98-108); Creatinine, Serum 0.82 mg/dL (0.70-1.20); EST Glomerular Filtration Rate 96 (>60); Estimated Creatinine Clearance 114.62 ml/min (50-250); Glucose 91 mg/dL (70-99); Potassium 4.3 mmol/L (3.3-5.1); Sodium Level 139 mmol/L (133-145)
--- NOTE | 2025-02-28 22:44 | PCM.HP.STD ---
HPI - General General Date of Admission: 02/28/25 Date of Service: 02/28/25 Chief Complaint: BL LE bite wounds with worsening erythema despite recent abx therapy. 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 She does report being more fatigued. She does report notable itching to the BL LE. Workup in the ED included T98.5, heart rate 82, BP 130/88, respiratory rate 16, 100% on room air with most recent repeat vitals heart rate 80, BP 124/67, respiratory rate 18, 100% on room air, CBC with WC 6.3, hemoglobin 14.5, platelet 242 without marked shift, ESR pending and CRP pending upon requested evaluation of patient, BNP unremarkable. In the ED patient ministered vancomycin 15 mg IV x 1. In the ED localized cultures obtained per ED physician with MRSA culture and wound culture obtained. [facility] Medical History Asthma PCOS (polycystic ovarian syndrome) Family history of hearing loss at age younger than 7 years DVT (deep venous thrombosis) Superficial varicosities Headache Bleeding in early Seasonal allergies History of DVT of lower extremity Anovulation Depression with anxiety Home Medications ?Medication ?Instructions ?Recorded ?Last Taken ?Type sertraline 100 mg tablet (Zoloft) 100 mg PO DAILY 02/14/22 03/19/24 20:00 History 100 mg albuterol sulfate 90 mcg/actuation 2 puff inhalation Q6H PRN asthma 08/15/23 Unknown History aerosol inhaler metformin 500 mg tablet 500 mg PO DAILY 08/15/23 03/19/24 18:00 History 500 mg multivitamin no.47-iron fum 27 1 cap PO DAILY 08/15/23 03/19/24 08:00 History mg-folate no.1 1 mg-dha 300 mg capsule (PNV-DHA) enoxaparin 40 mg/0.4 mL 60 mg (0.6 mL) subcut Q24H 6 weeks 03/23/24 Unknown Rx subcutaneous syringe (Lovenox) #25.2 mL cholecalciferol (vitamin D3) 50 50 mcg PO QDAY 05/10/24 Unknown History mcg (2,000 unit) capsule Allergy/AdvReac Type Severity Reaction Status Date / Time bacitracin (From Neosporin Allergy Intermediate Rash Verified 02/28/25 18:49 ([id number])) neomycin (From Neosporin Allergy Intermediate Rash Verified 02/28/25 18:49 ([id number])) polymyxin B (From Neosporin Allergy Intermediate Rash Verified 02/28/25 18:49 ([id number])) latex Allergy Rash Verified 02/28/25 18:49 banana AdvReac Nausea Verified 02/28/25 18:49 Family History Father Seizures Chiari malformation Lupus Sister PCOS (polycystic ovarian syndrome) Aunt PCOS (polycystic ovarian syndrome) Family history of recurrent miscarriage Mother Family history of recurrent miscarriage 2 miscarriges Surgical History History of surgery History of tonsillectomy and adenoidectomy Social History adopted: No household members: spouse number of children: 1 current occupational status: employed current occupation: [employer] pets and animals: Yes (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) pets and animals: cat(s) history of recent travel: Yes ([employer] at [place]) out of state: Yes out of country: No sexually active: Yes Smoking Status: Never smoker alcohol intake: current alcohol intake frequency: holidays/special occasions only details: not while substance use type: does not use diet: other well-balanced diet: daily or most days caffeine: Yes Type: coffee Number of servings: 1 eating out: 1-3 times/week during the past year weight has: decreased > 10 lbs what type of physical activity do you participate in: swimming frequency: 3-4 times per week song/islam: Nondenominational seatbelt use: always do you feel safe at home: Yes additional social history: - [employer] ROS ROS Narrative Admission Review of Systems: CONSTITUTIONAL: No weight loss, fever, chills,+ weakness or fatigue. HEENT: Eyes: No visual loss, blurred vision, double vision or yellow sclerae. Ears, Nose, Throat: No hearing loss, sneezing, congestion, runny nose or sore throat. SKIN: + Bilateral lower extremity small bite wounds with central necrosis and surrounding erythema and excoriation with pruritus. CARDIOVASCULAR: No chest pain, chest pressure or chest discomfort, palpitations, edema, orthopnea, syncopal events. RESPIRATORY: No shortness of breath, cough or sputum, wheezing, hemoptysis. GASTROINTESTINAL: No anorexia, nausea, vomiting or diarrhea, abdominal pain, melena, BRBPR. GENITOURINARY: No dysuria, frequency, urgency or retention. NEUROLOGICAL: No headache, dizziness, syncope, paralysis, ataxia, numbness or tingling in the extremities, focal weakness, change in bowel or bladder control, seizure. MUSCULOSKELETAL: + muscle, back pain, joint pain or stiffness. HEMATOLOGIC: No anemia, bleeding or bruising. LYMPHATICS: No enlarged nodes. No history of splenectomy. PSYCHIATRIC: No history of depression or anxiety. ENDOCRINOLOGIC: No reports of sweating, cold or heat intolerance. No polyuria or polydipsia. ALLERGIES:+ History of asthma. Vital Signs Vital Signs Vital Signs: 02/28/25 18:49 02/28/25 18:52 Temperature 98.5 F Temperature Source Oral Pulse Rate 82 80 Respiratory Rate 16 18 Blood Pressure 130/88 H 124/67 H Blood Pressure Mean 102 86 Pulse Ox 100 100 Oxygen Delivery Method Room Air Room Air Weight Weight: 237 lb Body Mass Index (BMI) 40.6 Physical Exam Narrative Physical Examination: General: Awake, alert, oriented x 3 and cooperative, seated upright in ED bed, fatigued otherwise no acute distress, does report notable itching to bilateral lower extremity lesions. Skin: Normal color, normal turgor, no icterus, no cyanosis except for bilateral lower extremity bite regions with periwound erythema and evident excoriation with some increased cellulitic region over the upper thighs also with some central occasional necrosis to the bug bite region. HEENT: AT/NC, EOMI, PERRLA, MMM, no carotid bruits, difficult discern JVD given thickened neck. Lungs: Mild diminished, greater bases, poor effort, no rales, ronchi or wheezing. Heart: Regular rate and rhythm; no gallop, rub audible. Abdomen: Soft, morbidly obese, NTTP, distant BS, difficult to discern distention and HSM given habitus. Extremities: No cyanosis, no clubbing, no notable pitting distal edema, see skin. Neurological: Patient awake, alert, oriented as noted, cognitive function intact; pupils equally reactive to light and accommodation, cranial nerves grossly normal, moving all 4 extremities, no focal deficits, strength preserved. Psychiatric: Affect appears fatigued otherwise normal, no acute evidence of depressive or anxiety feelings but does have underlying history. Results Lab / Micro Data 02/28/25 21:05 02/28/25 21:05 Labs: Laboratory Results - last 24 hr 02/28/25 21:05: WBC 6.3, RBC 4.94, Hgb 14.5, Hct 42.1, MCV 85.2, MCH 29.4, MCHC 34.4, RDW Std Deviation 41.9, RDW Coeff of Ignacio 13.7, Plt Count 242, MPV 11.5, Immature Gran % (Auto) 0.300, Neut % (Auto) 44.1 L, Lymph % (Auto) 40.0, Stewart % (Auto) 6.2, Eos % (Auto) 8.4 H, Baso % (Auto) 1.0, Absolute Neuts (auto) 2.8, Absolute Lymphs (auto) 2.51, Nucleated RBC % 0, Sodium 139, Potassium 4.3, Chloride 105, Carbon Dioxide 23.0, Anion Gap 11, BUN 12, Creatinine 0.82, Estim Creat Clear Calc 114.62, Est GFR (MDRD) Non-Af 96, BUN/Creatinine Ratio 14.3, Glucose 91, Calcium 8.9 Assessment & Plan Assessment/Plan (1) Cellulitis: PLAN: Plan The patient is a 34 y/o F w/ PMHx: Thyroid disorder, Hx VTE (DVT), Asthma w/ Allergic rhinitis, Anxiety and Depression, PCOS who presents to the [facility] ED on 02/28/2025 with history of what she presumed initially were bug bites on 02/19 with eventual subsequently developing mirella-bite erythema seen at [facility] in [place] and diagnosed at that time with MRSA infection placed on Bactrim and started this 3 days previous to current presentation however she feels as though she has had worsening appearance with increased erythema 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 #1. Concern for Acute BL LE Mirella-bite Cellulitis with small draining wounds, failed outpatient antibiotic therapy: Will admit to [facility] given stable vital signs, maintain on IV vancomycin given recent history of MRSA positive culture at outside facility however awaiting ED initiated wound culture and MRSA culture and certainly can alter antibiotic therapy as needed, continue BL LE elevation above heart when seated and in bed, monitor erythema outline with VS checks, will continue routine localized wound/dressing care, will have hydroxyzine PRN for pruritus. #2. Bilateral lower extremities with multiple lesions with central necrosis with excoriation and surrounding erythema #3. History VTE: Patient with history of DVT, perviously treated with course lovenox per records. #4. Chronic asthma: Per current list does not appear to be on chronic regimen, will have as needed albuterol, encourage head of bed and I-S. #5. Anxiety and depression: Will continue patient home sertraline regimen. #6. PCOS: Will temporally hold metformin, resume outpatient. #7. Allergic rhinitis: Per current list does not appear to be on regimen, defer to outpatient. #8. Morbid Obesity: Weight loss and lifestyle changes encouraged. #9. Thyroid disorder: Patient notes that she has had ongoing outpatient evaluation for thyroid disease but is not on any medication and her thyroid function studies continue to be monitored. #10. DVT prophylaxis: Lovenox. Charges/Coding Visit Charges Inpatient E&M: 85353 Init Hosp L3
[2025-02-28 22:49] LABS: Erythrocyte Sedimentation Rate 8 mm/hr (0-30)
[2025-02-28 22:52] VITALS: BP 131/68; PULSE 78; RESP 16; O2SAT 100
[2025-02-28] MEDS: Vancomycin HCl 1,500 MG in 0.9% Normal Saline (500mL Bag) 500 ML 250 MG IV (23:08)
[2025-02-28 23:14] VITALS: BP 154/68; PULSE 88; PULSE 89; RESP 14; TEMP 37; O2SAT 98
[2025-02-28 23:27] LABS: M R Staph aureus DNA By PCR Negative (Negative); Probe Check PASS; Specimen Processing Control PASS; Staph aureus DNA By PCR POSITIVE (Negative)
--- OUTSIDE RECORDS SUMMARY | 2025-02-28 23:34 | XMS RPT_ITS | CCD ---
Author Organization [facility] CliniSyfl Care Team Providers Care Production Drilling Machine Operator Name Role Phone Bushra Collins PA-C Primary Care Provider [phone] Dennis PAYNE PA Bushra Browning Primary Care Provider KERRY Russell Referring Provider CARA King Attending Provider Bushra Collins PA-C Primary Care Provider KERRY Russell Primary Care Provider KERRY Russell Referring Provider CARA King Attending Provider [phone] Rock ARREAGA, GIBSON-C Albertina Attending Provider [phone] Dr. Carey Nassar Attending Provider Bushra Collins [...] PAYNE-Mark Acosta Primary Care Provider Unavailable Moustapha RETAIL SALES TEAMMATE.Monica YU Unavailable [phone] Mohan RETAIL SALES TEAMMATE.AIMEE, Daja Gonzalez Unavailable Dr. Norman Kaplan DO Emergency Provider Care Physician, No Primary Primary Care Provider Unavailable MARK COLLINS Primary Care Unavailable SELF Referring Unavailable MONICA GERARD Attending Unavailable ADAM CARBAJAL Attending Unavailable ANA CAMEJO Referring Unavailable Collins PA, M Mitchel Primary Care Unavailable Zackery SOFTWARE SALES EXECUTIVE, Catherine Attending Unavailable Collins PA, M Mitchel Referring Unavailable Rock SOFTWARE SALES EXECUTIVE, Albertina Attending Unavailable Collins PA, M Mitchel [...] Collins PA, M Mitchel Referring Unavailable Zackery SOFTWARE SALES EXECUTIVE, Catherine Attending Unavailable Collins PA, M Mitchel Referring Unavailable Albertina Wilkerson NP Attending Unavailable Bushra Russell Primary Care Unavailable Bushra Russell Referring Unavailable Bushra Russell Primary Care Unavailable Khoi King Attending Unavailable Bushra Russell Referring Unavailable Rodolfo Carpenter Attending Unavailable Bushra Russell Primary Care Unavailable Gudelia Dominguez Admitting UnavailGudelia Locke Attending Unavailabl e Gudelia Dominguez Consulting Unavailabl e Allergies Allergy Classification Reported Allergen(s) Allergy Type Date of Onset Reaction(s) Facility (20 sources) Banana Extract; Translations: [BANANA] Drug Allergy 05-19-[address] [facility] Work Phone: (20 sources) Latex; Translations: [LATEX] Drug Allergy 05-19-2016 [facility] Work Phone: (9 sources) Bacitracin; Translations: [BACITRACIN] Drug Allergy 02-14-2022 [facility] (9 sources) Neomycin; Translations: [NEOMYCIN] Drug Allergy 02-14-2022 [facility] (9 sources) Polymyxin B; Translations: [POLYMYXIN B] Drug Allergy 02-14-2022 [facility] (1 source) Bacitracin Drug Allergy 12-08-2024 [facility] Repository (1 source) Banana Extract Drug Allergy 12-08-2024 [facility] (1 source) Latex Drug allergy (disorder) 12-08-2024 [facility] (1 source) Neomycin Drug Allergy 12-08-2024 [facility] (1 source) polymyxin B Drug allergy (disorder) 12-08-2024 [facility] Rep[facility] Medications Current Medications Medication Drug Class(es) Dates Sig (Normalized) Sig (Original) [id number] 200 actuat albuterol 0.09 mg/actuat metered dose [...] Start: 02-03-2023 take 1 capsule by [facility] every week ergocalciferol 50,000 unit capsule [...] on above: Take 2 tablets by mo [facility] twice daily. metFORMIN hydrochloride 500 mg oral [...] breakfast and 2 tablets after dinner Multivit 19-Aify-Pbjyqe 1-Dha (Pnv-Dha) 27 mg iron-1 mg -300 mg capsule (5 sources) Start: 08-15-2023 Multivit 53-Btle-Rylibn 1-Dha (Pnv-Dha) 27 mg iron-1 mg -300 [...] on above: Take 1 capsule by mo [facility] daily before breakfast. 1/2 hr before meal. predniSONE 20 mg oral tablet (1 source) Start: 04-09-2023 End: 04-14-2023 take 2 tablets by mouth once daily predniSONE (DELTASONE) 20 mg tablet Indications: URI with cough and congestion Take 2 tablets by mouth once daily for 5 days. 10 tablet 0 04/09/2023 04/14/2023 Active Comment on above: Take 2 tablets by mo [facility] once daily for 5 days. 25/iron fum/folic/dha [...] Comment on above: Take 1 tablet by [facility] once daily. triamcinolone acetonide 1 mg/ml topical [...] owth us q 4 weeks-follow up at [facility] Other complications of (3 sources) Maternal [...] T4 FREE DIRECT 0.90 ng/dL Normal 0.76-1.46 [facility] Comment on above: Order Comment: N Performed By: #### L 100.0100, L500.4050 #### [facility] [address] [place], [address] T4 Total, Thyroxinon 025 T4 [Mass/Vol] 6.1 ug/dL Normal 4.8-13.9 [facility] Comment on above: Performed By: #### L 100.0100, L500.4050 #### [facility] [address] [place], [address] CBC W/Diff, Automatedon 02-03 Absolute Lymph 1.85 X10 3/uL Normal 0.83-4.51 [facility] Comment on above: Performed By: #### L 501.9520, L501.9985, L500.4100, L100.0100, L500.4050, L506.1001 #### [facility] [address] [place], [address] Absolute Neut 3.5 X10 3/uL Normal 2.0-7.7 [facility] Comment on above: Performed By: #### L 501.9520, L501.9985, L500.4100, L100.0100, L500.4050, L506.1001 #### [facility] [address] [place], [address] Basophils/100 WBC (Bld) 1.3 % High 0-1 [facility] Comment on above: Performed By: #### L 501.9520, L501.9985, L500.4100, L100.0100, L500.4050, L506.1001 #### [facility] [address] [place], [address] Eosinophils/100 WBC (Bld) 6.6 % High 0-5 [facility] Comment on above: Performed By: #### L 501.9520, L501.9985, L500.4100, L100.0100, L500.4050, L506.1001 #### [facility] [address] [place], [address] Erythrocyte distribution width (RBC) [Ratio] 13.4 % Normal 11.6-14.6 [facility] Comment on above: Performed By: #### L 501.9520, L501.9985, L500.4100, L100.0100, L500.4050, L506.1001 #### [facility] [address] [place], [address] Hematocrit (Bld) [Volume fraction] 43.6 % Normal 37-47 [facility] Comment on above: Performed By: #### L 501.9520, L501.9985, L500.4100, L100.0100, L500.4050, L506.1001 #### [facility] [address] [place], [address] Hemoglobin (Bld) [Mass/Vol] 14.9 g/dL Normal 12.0-15.0 [facility] Comment on above: Performed By: #### L 501.9520, L501.9985, L500.4100, L100.0100, L500.4050, L506.1001 #### [facility] [address] [place], [address] IG% 0.300 Normal 0.0-0.9 [facility] Comment on above: Result Comment: IG% - Immature Granulocytes (promyelocytes, myelocytes and metamyelocytes) > 1% indicates that a LEFT SHIFT is Present. Performed By: #### L 501.9520, L501.9985, L500.4100, L100.0100, L500.4050, L506.1001 #### [facility] [address] [place], [address] Lymphocytes/100 WBC (Bld) 29.1 % Normal 19-41 [facility] Comment on above: Performed By: #### L 501.9520, L501.9985, L500.4100, L100.0100, L500.4050, L506.1001 #### [facility] [address] [place], [address] MCH (RBC) [Entitic mass] 28.9 pg Normal 27.0-32.0 [facility] Comment on above: Performed By: #### L 501.9520, L501.9985, L500.4100, L100.0100, L500.4050, L506.1001 #### [facility] [address] [place], [address] MCHC (RBC) [Mass/Vol] 34.2 g/dL Normal 32-36 [facility] Comment on above: Performed By: #### L 501.9520, L501.9985, L500.4100, L100.0100, L500.4050, L506.1001 #### [facility] [address] [place], [address] MCV (RBC) [Entitic vol] 84.7 fL Normal 81-99 [facility] Comment on above: Performed By: #### L 501.9520, L501.9985, L500.4100, L100.0100, L500.4050, L506.1001 #### [facility] [address] [place], [address] Monocytes/100 WBC (Bld) 7.4 % Normal 0-10 [facility] Comment on above: Performed By: #### L 501.9520, L501.9985, L500.4100, L100.0100, L500.4050, L506.1001 #### [facility] [address] [place], [address] Neutrophils/100 WBC (Bld) 55.3 % Normal 47-70 [facility] Comment on above: Performed By: #### L 501.9520, L501.9985, L500.4100, L100.0100, L500.4050, L506.1001 #### [facility] [address] [place], [address] Nucleated RBC (Bld) [#/Vol] 0 10*3/uL Normal 0-5 [facility] Comment on above: Performed By: #### L 501.9520, L501.9985, L500.4100, L100.0100, L500.4050, L506.1001 #### [facility] [address] [place], [address] Platelet mean volume (Bld) [Entitic vol] 11.4 fL Normal 6.2-12.0 [facility] Comment on above: Performed By: #### L 501.9520, L501.9985, L500.4100, L100.0100, L500.4050, L506.1001 #### [facility] [address] [place], [address] Platelets (Bld) [#/Vol] 245 10*3/uL Normal 150-450 [facility] Comment on above: Performed By: #### L 501.9520, L501.9985, L500.4100, L100.0100, L500.4050, L506.1001 #### [facility] [address] [place], [address] RBC (Bld) [#/Vol] 5.15 10*6/uL Normal 4.2-5.4 [facility] Comment on above: Performed By: #### L 501.9520, L501.9985, L500.4100, L100.0100, L500.4050, L506.1001 #### [facility] [address] [place], [address] RDW SD 41.3 fl Normal 35.1-43.9 [facility] Comment on above: Performed By: #### L 501.9520, L501.9985, L500.4100, L100.0100, L500.4050, L506.1001 #### [facility] [address] [place], [address] WBC (Bld) [#/Vol] 6.4 10*3/uL Normal 4.4-11.0 [facility] Comment on above: Performed By: #### L 501.9520, L501.9985, L500.4100, L100.0100, L500.4050, L506.1001 #### [facility] [address] [place], [address] Comprehensive Metabolic Prof [facility] 02-26-2025 Albumin [Mass/Vol] 4.3 g/dL Normal 3.5-5.0 [facility] Comment on above: Performed By: #### L 501.9520, L501.9985, L500.4100, L100.0100, L500.4050, L506.1001 #### [facility] [address] [place], [address] Albumin/Globulin [Mass ratio] 1.4 {ratio} Normal 0.9-2.4 [facility] Comment on above: Performed By: #### L 501.9520, L501.9985, L500.4100, L100.0100, L500.4050, L506.1001 #### [facility] [address] [place], [address] ALK PHOS 71 U/L Normal 35-104 [facility] Comment on above: Performed By: #### L 501.9520, L501.9985, L500.4100, L100.0100, L500.4050, L506.1001 #### [facility] [address] [place], [address] ALT [Catalytic activity/Vol] 26 U/L Normal <=34 [facility] Comment on above: Performed By: #### L 501.9520, L501.9985, L500.4100, L100.0100, L500.4050, L506.1001 #### [facility] [address] [place], [address] AST [Catalytic activity/Vol] 18 U/L Normal <=31 [facility] Comment on above: Performed By: #### L 501.9520, L501.9985, L500.4100, L100.0100, L500.4050, L506.1001 #### [facility] [address] [place], [address] Bilirubin [Mass/Vol] 0.21 mg/dL Normal 0.00-1.30 [facility] Comment on above: Performed By: #### L 501.9520, L501.9985, L500.4100, L100.0100, L500.4050, L506.1001 #### [facility] [address] [place], [address] BUN/CRE 13.8 RATIO Normal 10-20 [facility] Comment on above: Performed By: #### L 501.9520, L501.9985, L500.4100, L100.0100, L500.4050, L506.1001 #### [facility] [address] [place], [address] Calcium [Mass/Vol] 9.3 mg/dL Normal 7.6-11.0 [facility] Comment on above: Performed By: #### L 501.9520, L501.9985, L500.4100, L100.0100, L500.4050, L506.1001 #### [facility] [address] [place], [address] Chloride [Moles/Vol] 106 mmol/L Normal 98-108 [facility] Comment on above: Performed By: #### L 501.9520, L501.9985, L500.4100, L100.0100, L500.4050, L506.1001 #### [facility] [address] [place], [address] CO2 [Moles/Vol] 21.0 mmol/L Normal 21.0-32.0 [facility] Comment on above: Performed By: #### L 501.9520, L501.9985, L500.4100, L100.0100, L500.4050, L506.1001 #### [facility] [address] [place], [place], [id number] Creatinine [Mass/Vol] 0.90 mg/dL Normal 0.70-1.20 [facility] Comment on above: Performed By: #### L 501.9520, L501.9985, L500.4100, L100.0100, L500.4050, L506.1001 #### [facility] [address] [place], [place], [id number] (028) GAP 13 Normal 5-15 [facility] Comment on above: Performed By: #### L 501.9520, L501.9985, L500.4100, L100.0100, L500.4050, L506.1001 #### [facility] [address] [place], [place], [id number] (072) GFR/1.73 sq M.predicted among non-blacks MDRD (S/P/Bld) [Vol rate/Area] 86 mL/min/{1.73_m2} Normal >60 [facility] Comment on above: Result Comment: mL/m in/1.73m2 CKD-EPI Creatinine Equation (2020) Performed By: #### L 501.9520, L501.9985, L500.4100, L100.0100, L500.4050, L506.1001 #### [facility] [address] [place], [place], [phone] Globulin (S) [Mass/Vol] 3.0 g/dL Normal 2.2-4.2 [facility] Comment on above: Performed By: #### L 501.9520, L501.9985, L500.4100, L100.0100, L500.4050, L506.1001 #### [facility] [address] [place], [address] Glucose [Mass/Vol] 97 mg/dL Normal 70-99 [facility] Comment on above: Performed By: #### L 501.9520, L501.9985, L500.4100, L100.0100, L500.4050, L506.1001 #### [facility] [address] [place], [address] Potassium [Moles/Vol] 4.3 mmol/L Normal 3.3-5.1 [facility] Comment on above: Performed By: #### L 501.9520, L501.9985, L500.4100, L100.0100, L500.4050, L506.1001 #### [facility] [address] [place], [address] Sodium [Moles/Vol] 139 mmol/L Normal 133-145 [facility] Comment on above: Performed By: #### L 501.9520, L501.9985, L500.4100, L100.0100, L500.4050, L506.1001 #### [facility] [address] [place], [address] T PROT 7.3 g/dL Normal 5.9-8.4 [facility] Comment on above: Performed By: #### L 501.9520, L501.9985, L500.4100, L100.0100, L500.4050, L506.1001 #### [facility] [address] [place], [address] Urea nitrogen [Mass/Vol] 12 mg/dL Normal 4-19 [facility] Comment on above: Performed By: #### L 501.9520, L501.9985, L500.4100, L100.0100, L500.4050, L506.1001 #### [facility] [address] [place], [address] Hemoglobin A1con 02-26-2025 HbA1c (Bld) [Mass fraction] 5.7 % Normal <=5.6 [facility] Comment on above: Result Comment: Norm al < 5.7 % Prediabetic 5.7 - 6.4 % Diabetic >or= 6.5 % Please note range changes. Performed By: #### L 100.0100, L500.4050 #### [facility] [address] [place], [address] Lipid Profileon 02-26-2025 CHOL:HDL 4.38 Normal [facility] Comment on above: Performed By: #### L 501.9520, L501.9985, L500.4100, L100.0100, L500.4050, L506.1001 #### [facility] [address] [place], [address] Cholesterol [Mass/Vol] 197 mg/dL Normal <=[address] [facility] Comment on above: Result Comment: Chol esterol level, Desirable <200 mg/dL Borderline high cholesterol 200-239 mg/dL High cholesterol >=240 mg/dL Recommendations of the NCEP Adult Treatment Panel for the following risk-cutoff thresholds for the [place] population. Performed By: #### L 501.9520, L501.9985, L500.4100, L100.0100, L500.4050, L506.1001 #### [facility] [address] [place], [address] Cholesterol in HDL [Mass/Vol] 45 mg/dL Normal [facility] Comment on above: Result Comment: Carol onal Cholesterol Education Program (NCEP) guidelines: <40 mg/dL: Low HDL-cholesterol (major risk factor for CHD) >= 60 mg/dL: High HDL-cholesterol (negative risk factor for CHD) HDL-cholesterol is affected by a number of factors, e.g. smoking, exercise, hormones, sex and age. Performed By: #### L 501.9520, L501.9985, L500.4100, L100.0100, L500.4050, L506.1001 #### [facility] [address] [place], [address] Cholesterol in LDL [Mass/Vol] 128 mg/dL Normal [facility] Comment on above: Result Comment: Bord owxtrv=446-237 mg/dL Higher Cqeb=080 mg/dL or greater Performed By: #### L 501.9520, L501.9985, L500.4100, L100.0100, L500.4050, L506.1001 #### [facility] [address] [place], [address] Cholesterol in VLDL [Mass/Vol] 24 mg/dL Normal 5-40 [facility] Comment on above: Performed By: #### L 501.9520, L501.9985, L500.4100, L100.0100, L500.4050, L506.1001 #### [facility] [address] [place], [address] Triglyceride [Mass/Vol] 119 mg/dL Normal [facility] Comment on above: Result Comment: The drugs N-Acetylcysteine and Metamizole may falsely depress this assay. Normal range: <150 mg/dL Borderline High: 150-199 mg/dL High: 200-499 mg/dL Very High: >500 mg/dL Performed By: #### L 501.9520, L501.9985, L500.4100, L100.0100, L500.4050, L506.1001 #### [facility] [address] [place], [address] Thyroid Stim Hormone (TSH)on 02-26-2025 TSH 4.220 uIU/mL High 0.300-4.200 [facility] Comment on above: Performed By: #### L 100.0100, L500.4050 #### [facility] [address] [place], [place], [address] Vitamin D,25 Hydroxyon 02-26 Vitamin D 25-OH 19.7 ng/mL Low 30-100 [facility] Comment on above: Result Comment: Estrellita min D Status Deficiency: <20 ng/mL (50nmol/L) Insufficiency: 20-30 ng/mL (50-75 nmol/L) Sufficiency: 30-100 ng/mL (75-250 nmol/L) Toxicity: >100 ng/mL (>250 nmol/L) Performed By: #### L 100.0100, L500.4050 #### [facility] [address] [place], [address] CNOVon 01-31-2025 CNOV Office Visit ([facility] ) MILDRED MICHEL ([id number]) 1990 F Date Time Provider Department 01/31/25 7:30 AM ADAM CARBAJAL [facility] During your visit today, we recorded the following information about you: Temperature Pulse Respiration Blood pressure 98.3 degrees 85/minute 18/minute 114/76 Weight 107.2 kg Adam Carbajal APRN.STOCK CONTROL CLERK 01/31/2025 8:31 AM Signed Subjective HPI Nontoxic-appearing [...] Macular papular (more content not included)... Normal [facility] Absolute neutrophil countOrd ered By: Norman Kaplan on 12-08-2024 Neutrophils (Bld) [#/Vol] 2.5 10*3/uL 2.0-7.7 [facility] Anion gap in Serum or Plasma Ordered By: Norman Kaplan on 12-08-2024 Anion gap [Moles/Vol] 13 mmol/L 5-15 [facility] BUN/creatinine ratioOrdered By: Norman Kaplan on 12-08-2024 Urea nitrogen/Creatinine [Mass ratio] 15.9 mg/mg 10-20 [facility] Basic Metabolic Profile (BMP )on 12-08-2024 BUN/CRE 15.9 RATIO Normal 10-20 [facility] Comment on above: Performed By: #### L 100.0100, L500.4050 #### [facility] [address] [place], [address] Calcium [Mass/Vol] 9.0 mg/dL Normal 7.6-11.0 [facility] Comment on above: Performed By: #### L 100.0100, L500.4050 #### [facility] [address] [place], [address] Chloride [Moles/Vol] 104 mmol/L Normal 98-108 [facility] Comment on above: Performed By: #### L 100.0100, L500.4050 #### [facility] [address] [place], [address] CO2 [Moles/Vol] 22.2 mmol/L Normal 21.0-32.0 [facility] Comment on above: Performed By: #### L 100.0100, L500.4050 #### [facility] [address] [place], [address] Creatinine [Mass/Vol] 0.78 mg/dL Normal 0.70-1.20 [facility] Comment on above: Performed By: #### L 100.0100, L500.4050 #### [facility] [address] [place], [address] ECRCL 115.91 ml/min Normal 50-250 [facility] Comment on above: Performed By: #### L 100.0100, L500.4050 #### [facility] [address] [place], [address] GAP 13 Normal 5-15 [facility] Comment on above: Performed By: #### L 100.0100, L500.4050 #### [facility] [address] [place], [address] GFR/1.73 sq M.predicted among non-blacks MDRD (S/P/Bld) [Vol rate/Area] 102 mL/min/{1.73_m2} Normal >60 [facility] Comment on above: Result Comment: mL/m in/1.73m2 CKD-EPI Creatinine Equation (2020) Performed By: #### L 100.0100, L500.4050 #### [facility] [address] [place], [address] Glucose [Mass/Vol] 91 mg/dL Normal 70-99 [facility] Comment on above: Performed By: #### L 100.0100, L500.4050 #### [facility] [address] [place], [address] Potassium [Moles/Vol] 3.7 mmol/L Normal 3.3-5.1 [facility] Comment on above: Performed By: #### L 100.0100, L500.4050 #### [facility] [address] [place], [address] Sodium [Moles/Vol] 138 mmol/L Normal 133-145 [facility] Comment on above: Performed By: #### L 100.0100, L500.4050 #### [facility] [address] [place], [address] Urea nitrogen [Mass/Vol] 12 mg/dL Normal 4-19 [facility] Comment on above: Performed By: #### L 100.0100, L500.4050 #### [facility] [address] [place], [address] Basophil percentageOrdered B y: Norman Kaplan on 12-08-2024 Basophils/100 WBC (Bld) 0.7 % 0-1 [facility] Beta HCG ( test) Ql Ordered By: Norman Kaplan on 12-08-2024 Serum Test, Qualitative Negative [facility] Bilirubin Test strip Ql (U)O rdered By: Norman Kaplan on 12-08-2024 Bilirubin Ql (U) Negative Negative [facility] CBC W/Diff, Automatedon 04-0 Absolute Lymph 1.39 X10 3/uL Normal 0.83-4.51 [facility] Comment on above: Performed By: #### L 100.0100, L500.4050 #### [facility] [address] [place], [address] Absolute Neut 2.5 X10 3/uL Normal 2.0-7.7 [facility] Comment on above: Performed By: #### L 100.0100, L500.4050 #### [facility] [address] [place], [address] Basophils/100 WBC (Bld) 0.7 % Normal 0-1 [facility] Comment on above: Performed By: #### L 100.0100, L500.4050 #### [facility] [address] [place], [address] Eosinophils/100 WBC (Bld) 4.2 % Normal 0-5 [facility] Comment on above: Performed By: #### L 100.0100, L500.4050 #### [facility] [address] [place], [address] Erythrocyte distribution width (RBC) [Ratio] 13.4 % Normal 11.6-14.6 [facility] Comment on above: Performed By: #### L 100.0100, L500.4050 #### [facility] [address] [place], [address] Hematocrit (Bld) [Volume fraction] 47.4 % High 37-47 [facility] Comment on above: Performed By: #### L 100.0100, L500.4050 #### [facility] [address] [place], [address] Hemoglobin (Bld) [Mass/Vol] 15.8 g/dL High 12.0-15.0 [facility] Comment on above: Performed By: #### L 100.0100, L500.4050 #### [facility] [address] [place], [address] IG% 0.200 Normal 0.0-0.9 [facility] Comment on above: Result Comment: IG% - Immature Granulocytes (promyelocytes, myelocytes and metamyelocytes) > 1% indicates that a LEFT SHIFT is Present. Performed By: #### L 100.0100, L500.4050 #### [facility] [address] [place], [address] Lymphocytes/100 WBC (Bld) 30.5 % Normal 19-41 [facility] Comment on above: Performed By: #### L 100.0100, L500.4050 #### [facility] [address] [place], [address] MCH (RBC) [Entitic mass] 27.9 pg Normal 27.0-32.0 [facility] Comment on above: Performed By: #### L 100.0100, L500.4050 #### [facility] [address] [place], [address] MCHC (RBC) [Mass/Vol] 33.3 g/dL Normal 32-36 [facility] Comment on above: Performed By: #### L 100.0100, L500.4050 #### [facility] [address] [place], [address] MCV (RBC) [Entitic vol] 83.6 fL Normal 81-99 [facility] Comment on above: Performed By: #### L 100.0100, L500.4050 #### [facility] [address] [place], [address] Monocytes/100 WBC (Bld) 10.5 % High 0-10 [facility] Comment on above: Performed By: #### L 100.0100, L500.4050 #### [facility] [address] [place], [address] Neutrophils/100 WBC (Bld) 53.9 % Normal 47-70 [facility] Comment on above: Performed By: #### L 100.0100, L500.4050 #### [facility] [address] [place], [address] Nucleated RBC (Bld) [#/Vol] 0 10*3/uL Normal 0-5 [facility] Comment on above: Performed By: #### L 100.0100, L500.4050 #### [facility] [address] [place], [address] Platelet mean volume (Bld) [Entitic vol] 11.1 fL Normal 6.2-12.0 [facility] Comment on above: Performed By: #### L 100.0100, L500.4050 #### [facility] [address] [place], [address] Platelets (Bld) [#/Vol] 222 10*3/uL Normal 150-450 [facility] Comment on above: Performed By: #### L 100.0100, L500.4050 #### [facility] [address] [place], [address] RBC (Bld) [#/Vol] 5.67 10*6/uL High 4.2-5.4 [facility] Comment on above: Performed By: #### L 100.0100, L500.4050 #### [facility] [address] [place], [address] RDW SD 41.1 fl Normal 35.1-43.9 [facility] Comment on above: Performed By: #### L 100.0100, L500.4050 #### [facility] [address] [place], [place], [address] WBC (Bld) [#/Vol] 4.6 10*3/uL Normal 4.4-11.0 [facility] Comment on above: Performed By: #### L 100.0100, L500.4050 #### [facility] [address] [place], [address] CNOVon 12-08-2024 CNOV Office Visit (UCTR ) MILDRED MICHEL ([id number]) 1990 F Date Time Provider Department 12/08/24 10:30 AM TEMITOPE NAVARRETE [facility] During your visit today, we recorded the following information about you: Temperature Pulse Respiration Blood pressure 98 degrees 80/minute 16/minute 106/72 Weight 104.9 kg Temitope Navarrete APRN.STOCK CONTROL CLERK 12/08/2024 10:52 AM Signed Patient came and [...] diarrhea [R11.10, R19.7] Order(s):INFLUENZA AANDB MOLECULAR (POC) [4889980] Order #: [id number]. #:[id number] Prescriptions as of 12/09/2024 - omeprazole (PRILOSEC) [...] Status:Closed by TEMITOPE NAVARRETE on 12/08/24 Normal [facility] Carbon dioxide, total [Moles /volume] in Central venous bloodOrdered By: Norman Kaplan on 12-08-2024 CO2 [Moles/Vol] 22.2 mmol/L 21.0-32.0 [facility] Chest PA and Lateralon 12-08 Chest PA and Lateral [facility] Imaging Services [address] [place] [address] Chest PA and Lateral MR#: [id number] Acct: [id number] Name: KAITLINLAURENPattiMILDRED FRIED Rep #: [id number] : 1990 F 34 From: Fausto Snell DO PCP: Care Physician,No Primary Status: [facility] ER Study: Chest PA and Lateral Date of Exam: 12/08/24 Exam# [id number] Ordering Dr: Norman Kaplan DO PROCEDURE: CHEST [...] of an acute cardiopulmonary process. [facility] CC: Dr. Norman Kaplan DO; No Primary Care Physician Hydrogen Cell Tender: Signed Normal [facility] Chloride assayOrdered By: Cheng Kaplan on 12-08-2024 Chloride [Moles/Vol] 104 mmol/L 98-108 [facility] Emergency Department Summary on 12-08-2024 Emergency Department Summary [facility] Medical Records Department [address] [place] [address] Emergency Department Summary 12/08/24 MR#: [id number] Acct: [id number] Name: MILDRED MICHEL Rep #: [id number] : 1990 34 From: Norman Kaplan DO [...] chest pain. Patient denies any urinary complaints. [facility] Medical History Family history of hearing [...] Neosporin Allergy Intermediate Rash Verified 12/08/24 10:48 ([id number])) neomycin (From Neosporin Allergy Intermediate Rash Verified 12/08/24 10:48 (sjl-cqw-qydkq)) polymyxin B (From Neosporin Allergy Intermediate Rash Verified 12/08/24 10:48 (oeq-tou-hlgnl)) latex Allergy Rash Verified 12/08/24 10:48 banana [...] history of recent travel: Yes (FLA at [employer]) out of state: Yes out of country: [...] in: swimming frequency: 3-4 times per week song/sabianist: Confucianist seatbelt use: always do you feel safe [...] Musculoskeletal Musculosk (more content not included)... Normal [facility] Eosinophil percentageOrdered By: Norman Kaplan on 12-08-2024 Eosinophils/100 WBC (Bld) 4.2 % 0-5 [facility] Epithelial cells.squamous LM Ql (Urine sed)Ordered By: Norman Kaplan on 12-08-2024 Epithelial cells.squamous LM.HPF (Urine sed) [#/Area] 5 /[HPF] 5-10 [facility] Erythrocyte distribution wid th (RBC) [Ratio]Ordered By: Norman Kaplan on 12-08-2024 Erythrocyte distribution width (RBC) [Entitic vol] 41.1 fL 35.1-43.9 [facility] Erythrocyte distribution wid th ratioOrdered By: Norman Kaplan on 12-08-2024 Erythrocyte distribution width (RBC) [Ratio] 13.4 % 11.6-14.6 [facility] Estimation of creatinine johnathan aranceOrdered By: Norman Kaplan on 12-08-2024 Estimated Creatinine Clearance Calc 115.91 ml/min 50-250 [facility] GFR/1.73 sq M.predicted shaunna g non-blacks MDRD (S/P/Bld) [Vol rate/Area]Ordered By: Norman Kaplan on 12-08-2024 Estimated GFR (MDRD) Non-Af Amer 102 >60 [facility] Comment on above: mL/min/1.73m2 CKD-EP I Creatinine Equation (2020) Glucose Ql (U)Ordered By: Cheng Kaplan on 12-08-2024 Urine Glucose (UA) Normal mg/dl Normal [facility] Hematocrit Auto (Bld) [Volum e fraction]Ordered By: Norman Kaplan on 12-08-2024 Hematocrit (Bld) [Volume fraction] 47.4 % High 37-47 [facility] Hemoglobin measurementOrdere d By: Norman Kaplan on 12-08-2024 Hemoglobin (Bld) [Mass/Vol] 15.8 g/dL High 12.0-15.0 [facility] INFLUENZA A&B MOLECULAR (POC )on 12-08-2024 Flu A (POCT) Negative Negative [facility] Flu B (POCT) Negative Negative [facility] Procedural Control Valid [facility] Location:[facility], [address] [facility] [address], [place], [address] [facility] POINT OF CARE [facility] Immature granulocytes/100 WB C Auto (Bld)Ordered By: Norman Kaplan on 12-08-2024 Immature granulocytes/100 WBC (Bld) 0.200 % 0.0-0.9 [facility] Comment on above: IG% - Immature Granu locytes (promyelocytes, myelocytes and metamyelocytes) > 1% indicates that a LEFT SHIFT is Present. Influenza virus A and B and SARS-CoV-2 (COVID-19) and Respiratory syncytial virus RNAOrdered By: Norman Kaplan on 12-08-2024 SARS-CoV-2 (COVID-19) RNA EZEKIEL+probe Ql (Unsp spec) [facility] Ketones Test strip Ql (U)Ord ered By: Norman Kaplan on 12-08-2024 Ketones Ql (U) 15 mg/dl High Negative [facility] Lymphocytes Auto (Unsp spec) [#/Vol]Ordered By: Norman Kaplan on 12-08-2024 Lymphocytes (Bld) [#/Vol] 1.39 10*3/uL 0.83-4.51 [facility] Lymphocytes/100 WBC Auto (Un sp spec)Ordered By: Norman Kaplan on 12-08-2024 Lymphocytes/100 WBC (Bld) 30.5 % 19-41 [facility] M100.678on 12-08-2024 M100.678 Pending SARS-CoV-2 (COVID 19) Negative INFLUENZA A Negative INFLUENZA B Negative RSV PCR Negative Normal [facility] Comment on above: Performed By: #### M 100.678, L400.0001 #### [facility] [address] [place], [place], [id number] MCV (mean corpuscular volume ) determinationOrdered By: Norman Kaplan on 12-08-2024 MCV (RBC) [Entitic vol] 83.6 fL 81-99 [facility] Mean corpuscular hemoglobin (MCH) determinationOrdered By: Norman Kaplan on 12-08-2024 MCH (RBC) [Entitic mass] 27.9 pg 27.0-32.0 [facility] Mean corpuscular hemoglobin concentration (MCHC) determinationOrdered By: Norman Kaplan on 12-08-2024 MCHC (RBC) [Mass/Vol] 33.3 g/dL 32-36 [facility] Mean platelet volume determi nationOrdered By: Norman Kaplan on 12-08-2024 Platelet mean volume (Bld) [Entitic vol] 11.1 fL 6.2-12.0 [facility] Microscopic analysis of urin e for red blood cells (RBC)Ordered By: Norman Kaplan on 12-08-2024 Urine RBC 0 SEEN /hpf 0-5 [facility] Monocyte percentageOrdered B y: Norman Kaplan on 12-08-2024 Monocytes/100 WBC (Bld) 10.5 % High 0-10 [facility] Mucus LM Ql (Urine sed)Order ed By: Norman Kaplan on 12-08-2024 Mucus Ql (Urine sed) 1+ /hpf [facility] Neutrophil percentageOrdered By: Norman Kaplan on 12-08-2024 Neutrophils/100 WBC (Bld) 53.9 % 47-70 [facility] Nitrite Test strip Ql (U)Ord ered By: Norman Kaplan on 12-08-2024 Nitrite Ql (U) Negative Negative [facility] Nucleated red blood cell per centageOrdered By: Norman Kaplan on 12-08-2024 Nucleated RBC/100 WBC (Bld) [Ratio] 0 % 0-5 [facility] Platelet countOrdered By: Cheng Kaplan on 12-08-2024 Platelets (Bld) [#/Vol] 222 10*3/uL 150-450 [facility] Potassium (Unsp spec) [Mass/ Vol]Ordered By: Norman Kaplan on 12-08-2024 Potassium [Moles/Vol] 3.7 mmol/L 3.3-5.1 [facility] ,Serum,hCG Quali.on 12-08-2024 HCG, SERUM QUAL Negative Normal [facility] Comment on above: Performed By: #### L 100.0100, L500.4050 #### [facility] [address] [place], [place], [address] Protein Test strip Ql (U)Ord ered By: Norman Kaplan on 12-08-2024 Protein Ql (U) 30 mg/dl High Negative [facility] RBC Auto (Bld) [#/Vol]Ordere d By: Norman Kaplan on 12-08-2024 RBC (Bld) [#/Vol] 5.67 10*6/uL High 4.2-5.4 [facility] Serum creatinine measurement (mass/volume)Ordered By: Norman Kaplan on 12-08-2024 Creatinine [Mass/Vol] 0.78 mg/dL 0.70-1.20 [facility] Serum glucose measurement (m ass/volume)Ordered By: Norman Kaplan on 12-08-2024 Glucose [Mass/Vol] 91 mg/dL 70-99 [facility] Serum or plasma calcium [place] urement (mass/volume)Ordered By: Norman Kaplan on 12-08-2024 Calcium [Mass/Vol] 9.0 mg/dL 7.6-11.0 [facility] Serum or plasma urea nitroge n measurement (mass/volume)Ordered By: Norman Kaplan on 12-08-2024 Urea nitrogen [Mass/Vol] 12 mg/dL 4-19 [facility] Sodium levelOrdered By: Norman Kaplan on 12-08-2024 Sodium [Moles/Vol] 138 mmol/L 133-145 [facility] Urinalysis, Completeon 12-08 BACTERIA 2+ /hpf Normal None Seen [facility] Comment on above: Order Comment: CLEAN CATCH Performed By: #### M 100.678, L400.0001 #### [facility] [address] [place], [place], [id number] EPI,SQUAMOUS 5-10 SEEN Normal 5-10 [facility] Comment on above: Order Comment: CLEAN CATCH Performed By: #### M 100.678, L400.0001 #### [facility] [address] [place], [address] Mucus Ql (Urine sed) 1+ /hpf Normal [facility] Comment on above: Order Comment: CLEAN CATCH Performed By: #### M 100.678, L400.0001 #### [facility] [address] [place], [address] WBC 0-5 SEEN Normal 0-5 [facility] Comment on above: Order Comment: CLEAN CATCH Performed By: #### M 100.678, L400.0001 #### [facility] [address] [place], [address] RBC 0 SEEN Normal 0-5 [facility] Comment on above: Order Comment: CLEAN CATCH Performed By: #### M 100.678, L400.0001 #### [facility] [address] [place], [address] Urine blood detectionOrdered By: Norman Kaplan on 12-08-2024 Urine Occult Blood Negative Negative [facility] Urine clarityOrdered By: Patricia Kaplan on 12-08-2024 Clarity (U) Sl. Cloudy Clear [facility] Urine color determinationOrd ered By: Norman Kaplan on 12-08-2024 Color (U) Yellow Yellow [facility] Urine leukocyte esterase det ection by dipstickOrdered By: Norman Kaplan on 12-08-2024 Leukocyte esterase Test strip Ql (U) 25 /ul High Negative [facility] Urine pHOrdered By: Norman gerard on 12-08-2024 pH (U) 6.0 [pH] 5.0 - 8.0 [facility] Urine sediment bacteria coun t by microscopy (number/high power field)Ordered By: Norman Kaplan on 12-08-2024 Bacteria LM.HPF (Urine sed) [#/Area] 2 /[HPF] None Seen [facility] Urine specific gravity measu rementOrdered By: Norman Kaplan on 12-08-2024 Specific gravity (U) [Rel density] 1.020 1.002-1.030 [facility] Urobilinogen Ql (U)Ordered B y: Norman Kaplan on 12-08-2024 Urine Urobilinogen Normal mg/dl Normal [facility] White blood cell (WBC) count Ordered By: Norman Kaplan on 12-08-2024 WBC (Bld) [#/Vol] 4.6 10*3/uL 4.4-11.0 [facility] White blood cell countOrdere d By: Norman Kaplan on 12-08-2024 Urine WBC 0-5 SEEN /hpf 0-5 [facility] CNOVon 10-08-2024 CNOV Office Visit (UCWSTR ) MILDRED MICHEL ([id number]) 1990 F Date Time Provider Department 10/08/24 10:15 AM ANA CAMEJO [facility] During your visit today, we recorded the following information about you: Temperature Pulse Respiration Blood pressure 98.4 degrees 96/minute 16/minute 110/76 Weight 113.3 kg Ana Camejo APRN.STOCK CONTROL CLERK 10/08/2024 12:42 PM Signed Subjective HPI HPI [...] or worse (more content not included)... Normal [facility] XR CHEST 2V FRONTAL/LATon XR CHEST 2V [...] may be due to atelectasis or infiltrate Hydrogen Cell Tender: PSCB Transcribe Date/Time: Oct 08 2024 10:36A Dictated by : BEATRICE MARTINEZ MD This examination was interpreted and the report reviewed and electronically signed by: BEATRICE MARTINEZ MD on Oct 08 2024 10:37AM EST [id number] Normal [facility] XR Chest PA and Lateralon IMPRESSION: Streaky densities in the medial left lung base may be due to atelectasis or infiltrate Hydrogen Cell Tender: PSCB Transcribe Date/Time: Oct 08 2024 10:36A [...] soft tissues: Unremarkable. DIVISION OF RADIOLOGY Provider, [facility] - 10/08/2024 * * *Final Report* [...] may be due to atelectasis or infiltrate Hydrogen Cell Tender: CAMILLE Transcribe Date/Time: Oct 08 2024 10:36A Dictated by : BEATRICE MARTINEZ MD This examination was interpreted and the report reviewed and electronically signed by: BEATRICE MARTINEZ MD on Oct 08 2024 10:37AM EST [facility] Radiology Study observation (narrative) [facility] XR Chest PA and LateralOrder ed By: Ccf Provider on 10-08-2024 [facility] CNPNon 10-03-2024 CHRIS Telephone (EDNA) MILDRED MICHEL ([id number]) 1990 F Date Time Provider Department 10/03/24 [...] Original placed in Med Rec's for pt waste picker. Cira Bradford LPN Allergies As of Date: 10/03/2024 Noted Allergy Reaction BANANA 05/19/2016 8 - GI Upset LATEX 05/19/2016 2 - Rash Date Reviewed: 06/04/2024 Reviewed by: Cira Bradford LPN - Fully Assessed Reason for Visit: WILLIE Paperwork [2098] Cmt: Due by 10/05/24 Prescriptions as of [...] Encounter Status:Closed by CIRA BRADFORD on 10/04/24 [facility] CNOVon 06-04-2024 CNOV Office Visit (FAMWS ) MILDRED MICHEL ([id number]) 1990 F Date Time Provider Department 06/04/24 3:40 PM MONICA GERARD During your visit today, we recorded the following information about you: Pulse Respiration Blood pressure Weight 87/minute 16/minute 126/72 108.9 kg Monica Gerard APRN.STOCK CONTROL CLERK 06/04/2024 6:05 PM Signed This is a [...] ICD10: E03.9 Will be getting labs per [employer] PHOTO INSPECTOR soon. Discussed treatment plan and patient voices understanding. Patient's questions answered appropriately. Medicat (more content not included)... Normal [facility] [employer] Office Visit Reporton 05-10-2024 [employer] Office Visit Report [facility] [address], [address] [place] [address] OFFICE VISIT Date of Service: 05/10/24 MR#: [id number] Acct: [id number] Name: MILDRED MICHEL Rep #: [id number] : 1990 Provider: Dr. Gudelia Reyna DO Age/Sex: 33/F Location: [facility] Status: Signed Intake Vital Signs 03/26/24 09:29 04/10/24 11:25 05/10/24 11:24 05/10/24 11:25 Height 5 ft 2 in 5 ft 2 in 5 ft 2 in 5 ft 2 in Weight: 235 lb BMI 43.0 BP 100/64 Intake Visit Reasons: visit (obstetrics) Application Assistant Required: No Is patient in pain?: No Allergies bacitracin (From Neosporin (lyt-pxu-kjqgw)) Allergy (Intermediate, Verified 05/10/24 11:23) Rash neomycin (From Neosporin (uev-ooe-hoqrn)) Allergy (Intermediate, Verified 05/10/24 11:23) Rash polymyxin B (From Neosporin (qlz-mpi-csezk)) Allergy (Intermediate, Verified 05/10/24 11:23) Rash latex [...] history of recent travel: Yes (FLA at [employer]) out of state: Yes out of country: [...] in: swimming frequency: 3-4 times per week song/sabianist: Confucianist seatbelt use: always do you feel safe at home: Yes additional social history: - [employer] History 1 Elective abortions Hx Para 1 Spontaneous abortions Hx # Term Pregnancies Ectopic pregnancies Hx # Pregnancies Multiple births # of living children 1 Past Pregnancies Del. Date Name GA/Weeks Outcome Route Bth Weight [facility] 03/21/24 Miguel 39 live - full term 8# Male epidural [facility] Gudelia Knowles Delivery Date: 03/21/24 Last [...] a failure (more content not included)... Normal [facility] [employer] Office Visit Reporton 04-10-2024 [employer] Office Visit Report [facility] [address] [place] [address] OFFICE VISIT Date of Service: 04/10/24 MR#: [id number] Acct: [id number] Name: MILDRED MICHEL Rep #: [id number] : 1990 Provider: MARILYN pardo Age/Sex: 33/F Location: [facility] Status: Signed Intake Vital Signs 03/26/24 09:29 04/10/24 10:57 Height 5 ft 2 in 5 ft 2 in Weight: 236 lb 8 oz BMI 43.2 BP 114/74 Intake Visit Reasons: visit (obstetrics) Allergies bacitracin (From Neosporin (nwe-inl-raxyv)) Allergy (Intermediate, Verified 04/10/24 10:57) Rash neomycin (From Neosporin (gpu-msk-kgbyr)) Allergy (Intermediate, Verified 04/10/24 10:57) Rash polymyxin B (From Neosporin (wvd-rlq-qqbub)) Allergy (Intermediate, Verified 04/10/24 10:57) Rash latex [...] history of recent travel: Yes (FLA at [employer]) out of state: Yes out of country: [...] in: swimming frequency: 3-4 times per week song/sabianist: Confucianist seatbelt use: always do you feel safe at home: Yes additional social history: - [facility] Routine Follow-Up Details: MILDRED MICHEL is [...] live - full term 8# Male epidural [facility] Gudelia Knowles Delivery Date: 03/21/24 Last Updated by: Rupinder Cowan low transverse, c section decels Exam Const General: cooperative and no acute distress Orientation: oriented x3 GI Inspection: incision (well (more content not included)... Normal [facility] 03-26-2024 MR/BMS.[facility] [address] [place] [address] OFFICE VISIT Date of Service: 03/25/24 MR#: [id number] Acct: [id number] Name: MILDRED MICHEL Rep #: [id number] : 1990 Provider: Catherine Vizcarra NP Age/Sex: 33/F [place] [facility]: Signed Intake Vital Signs 03/20/24 10:26 03/26/24 09:29 Height 5 ft 2 in 5 ft 2 in Intake Visit Reasons: Visit Chief Complaint: assessment Accompanied by: Allergies bacitracin (From Neosporin (ibh-odz-mtfpc)) Allergy (Intermediate, Verified 03/20/24 10:48) Rash neomycin (From Neosporin (xst-deg-iuzas)) Allergy (Intermediate, Verified 03/20/24 10:48) Rash polymyxin B (From Neosporin (hyo-dne-oilvq)) Allergy (Intermediate, Verified 03/20/24 10:48) Rash latex [...] history of recent travel: Yes (FLA at [employer]) out of state: Yes out of country: [...] in: swimming frequency: 3-4 times per week song/sabianist: Confucianist seatbelt use: always do you feel safe [...] Other: bilateral (more content not included)... Normal [facility] CBC-Complete Blood Cnt No Di ffon 03-23-2024 Erythrocyte distribution width (RBC) [Ratio] 14.3 % Normal 11.6-14.6 [facility] Comment on above: Performed By: #### L 100.0100, L500.4050 #### [facility] Laboratory [address] [place], [address] Hematocrit (Bld) [Volume fraction] 24.2 % Low 37-47 [facility] Comment on above: Performed By: #### L 100.0100, L500.4050 #### [facility] [address] [place], [address] Hemoglobin (Bld) [Mass/Vol] 8.2 g/dL Low 12.0-15.0 [facility] Comment on above: Performed By: #### L 100.0100, L500.4050 #### [facility] [address] [place], [address] MCH (RBC) [Entitic mass] 29.6 pg Normal 27.0-32.0 [facility] Comment on above: Performed By: #### L 100.0100, L500.4050 #### [facility] [address] [place], [address] MCHC (RBC) [Mass/Vol] 33.9 g/dL Normal 32-36 [facility] Comment on above: Performed By: #### L 100.0100, L500.4050 #### [facility] [address] [place], [address] MCV (RBC) [Entitic vol] 87.4 fL Normal 81-99 [facility] Comment on above: Performed By: #### L 100.0100, L500.4050 #### [facility] [address] [place], [address] Platelet mean volume (Bld) [Entitic vol] 11.3 fL Normal 6.2-12.0 [facility] Comment on above: Performed By: #### L 100.0100, L500.4050 #### [facility] [address] [place], [address] Platelets (Bld) [#/Vol] 147 10*3/uL Low 150-450 [facility] Comment on above: Performed By: #### L 100.0100, L500.4050 #### [facility] [address] [place], [address] RBC (Bld) [#/Vol] 2.77 10*6/uL Low 4.2-5.4 [facility] Comment on above: Performed By: #### L 100.0100, L500.4050 #### [facility] [address] [place], [address] RDW SD 44.7 fl High 35.1-43.9 [facility] Comment on above: Performed By: #### L 100.0100, L500.4050 #### [facility] [address] [place], [address] WBC (Bld) [#/Vol] 7.4 10*3/uL Normal 4.4-11.0 [facility] Comment on above: Performed By: #### L 100.0100, L500.4050 #### [facility] [address] [place], [address] CBC-Complete Blood Cnt No Di ffon 03-22-2024 Erythrocyte distribution width (RBC) [Ratio] 14.2 % Normal 11.6-14.6 [facility] Comment on above: Order Comment: Comme nts: Day #1 Reason for Laboratory Test Performed By: #### L 100.0500 #### [facility] [address] [place], [address] Hematocrit (Bld) [Volume fraction] 26.0 % Low 37-47 [facility] Comment on above: Order Comment: Comme nts: Day #1 Reason for Laboratory Test Performed By: #### L 100.0500 #### [facility] [address] [place], [address] Hemoglobin (Bld) [Mass/Vol] 8.7 g/dL Low 12.0-15.0 [facility] Comment on above: Order Comment: Comme nts: Day #1 Reason for Laboratory Test Performed By: #### L 100.0500 #### [facility] [address] [place], [address] MCH (RBC) [Entitic mass] 29.2 pg Normal 27.0-32.0 [facility] Comment on above: Order Comment: Comme nts: Day #1 Reason for Laboratory Test Performed By: #### L 100.0500 #### [facility] [address] [place], [address] MCHC (RBC) [Mass/Vol] 33.5 g/dL Normal 32-36 [facility] Comment on above: Order Comment: Comme nts: Day #1 Reason for Laboratory Test Performed By: #### L 100.0500 #### [facility] [address] [place], [address] MCV (RBC) [Entitic vol] 87.2 fL Normal 81-99 [facility] Comment on above: Order Comment: Comme nts: Day #1 Reason for Laboratory Test Performed By: #### L 100.0500 #### [facility] [address] [place], [address] Platelet mean volume (Bld) [Entitic vol] 12.0 fL Normal 6.2-12.0 [facility] Comment on above: Order Comment: Comme nts: Day #1 Reason for Laboratory Test Performed By: #### L 100.0500 #### [facility] [address] [place], [address] Platelets (Bld) [#/Vol] 140 10*3/uL Low 150-450 [facility] Comment on above: Order Comment: Comme nts: Day #1 Reason for Laboratory Test Performed By: #### L 100.0500 #### [facility] [address] [place], [address] RBC (Bld) [#/Vol] 2.98 10*6/uL Low 4.2-5.4 [facility] Comment on above: Order Comment: Comme nts: Day #1 Reason for Laboratory Test Performed By: #### L 100.0500 #### [facility] [address] [place], [address] RDW SD 43.5 fl Normal 35.1-43.9 [facility] Comment on above: Order Comment: Comme nts: Day #1 Reason for Laboratory Test Performed By: #### L 100.0500 #### [facility] [address] [place], [address] WBC (Bld) [#/Vol] 7.5 10*3/uL Normal 4.4-11.0 [facility] Comment on above: Order Comment: Comme nts: Day #1 Reason for Laboratory Test Performed By: #### L 100.0500 #### [facility] [address] [place], [address] Discharge Instructionon 03-04 Discharge Instruction [facility] Medical Records Department [address] [place] [address] Instructions for Home/Discharge Instructions 03/21/24 0133 MR#: [id number] Acct: [id number] Name: MILDRED MICHEL Rep #: [id number] : 1990 33 From: Gudelia Dominguez DO [...] Up With: Gudelia Dominguez DO When: Call [phone] to make an appointment for an incision [...] Dominguez DO CC: KERRY Ruiz Signed Normal [facility] Operative Reporton 4 Operative Report [facility] Medical Records Department [address] [place] [address] Operative Report 03/21/24 0125 MR#: [id number] Acct: [id number] Name: MILDRED MICHEL Rep #: [id number] : 1990 33 From: Gudelia Dominguez DO PCP: KERRY Ruiz Status:ADM IN [id number] Assessment Plan (1) Arrested labor: (2) intolerance to labor, delivered, current hospitalization: (3) Active labor: (4) Multicystic dysplastic kidney, , affecting care of mother, antepartum: QUALIFIERS: Fetus number: single or unspecified fetus Qualified Code(s): O35.EXX0 - Maternal care for other (suspected) abnormality and damage, genitourinary anomalies, not applicable or unspecified COMMENT: left kidney only. growth us q 4 weeks-follow up at [facility] (5) Obesity affecting : QUALIFIERS: Trimester: [...] Final DICK: 03/28/24 Final DICK Source: LMP [place] Doctor Who Attended Delivery: Shailesh Jerome Details [...] of Procedure: The patient was admitted to [facility] for active labor and stalled at 7 [...] laterally manu (more content not included)... Normal [facility] CBC W/Diff, Automatedon 03-04 Absolute Lymph 1.05 X10 3/uL Normal 0.83-4.51 [facility] Comment on above: Performed By: #### L 100.0100, L500.4050 #### [facility] Laboratory [address] [place], [address] Absolute Neut 8.6 X10 3/uL High 2.0-7.7 [facility] Comment on above: Performed By: #### L 100.0100, L500.4050 #### [facility] [address] [place], [address] Basophils/100 WBC (Bld) 0.2 % Normal 0-1 [facility] Comment on above: Performed By: #### L 100.0100, L500.4050 #### [facility] [address] [place], [address] Eosinophils/100 WBC (Bld) 0.0 % Normal 0-5 [facility] Comment on above: Performed By: #### L 100.0100, L500.4050 #### [facility] [address] [place], [address] Erythrocyte distribution width (RBC) [Ratio] 13.4 % Normal 11.6-14.6 [facility] Comment on above: Performed By: #### L 100.0100, L500.4050 #### [facility] [address] [place], [address] Hematocrit (Bld) [Volume fraction] 38.4 % Normal 37-47 [facility] Comment on above: Performed By: #### L 100.0100, L500.4050 #### [facility] [address] [place], [address] Hemoglobin (Bld) [Mass/Vol] 13.2 g/dL Normal 12.0-15.0 [facility] Comment on above: Performed By: #### L 100.0100, L500.4050 #### [facility] [address] [place], [address] IG% 0.500 Normal 0.0-0.9 [facility] Comment on above: Result Comment: IG% - Immature Granulocytes (promyelocytes, myelocytes and metamyelocytes) > 1% indicates that a LEFT SHIFT is Present. Performed By: #### L 100.0100, L500.4050 #### [facility] [address] [place], [address] Lymphocytes/100 WBC (Bld) 10.4 % Low 19-41 [facility] Comment on above: Performed By: #### L 100.0100, L500.4050 #### [facility] [address] [place], [address] MCH (RBC) [Entitic mass] 28.9 pg Normal 27.0-32.0 [facility] Comment on above: Performed By: #### L 100.0100, L500.4050 #### [facility] [address] [place], [address] MCHC (RBC) [Mass/Vol] 34.4 g/dL Normal 32-36 [facility] Comment on above: Performed By: #### L 100.0100, L500.4050 #### [facility] [address] [place], [address] MCV (RBC) [Entitic vol] 84.0 fL Normal 81-99 [facility] Comment on above: Performed By: #### L 100.0100, L500.4050 #### [facility] [address] [place], [address] Monocytes/100 WBC (Bld) 4.0 % Normal 0-10 [facility] Comment on above: Performed By: #### L 100.0100, L500.4050 #### [facility] [address] [place], [address] Neutrophils/100 WBC (Bld) 84.9 % High 47-70 [facility] Comment on above: Performed By: #### L 100.0100, L500.4050 #### [facility] Laboratory [address] [place], [address] Nucleated RBC (Bld) [#/Vol] 0 10*3/uL Normal 0-5 [facility] Comment on above: Performed By: #### L 100.0100, L500.4050 #### [facility] [address] [place], [address] Platelet mean volume (Bld) [Entitic vol] 12.1 fL High 6.2-12.0 [facility] Comment on above: Performed By: #### L 100.0100, L500.4050 #### [facility] [address] [place], [address] Platelets (Bld) [#/Vol] 173 10*3/uL Normal 150-450 [facility] Comment on above: Performed By: #### L 100.0100, L500.4050 #### [facility] Laboratory [address] [place], [address] RBC (Bld) [#/Vol] 4.57 10*6/uL Normal 4.2-5.4 [facility] Comment on above: Performed By: #### L 100.0100, L500.4050 #### [facility] [address] [place], [address] RDW SD 41.1 fl Normal 35.1-43.9 [facility] Comment on above: Performed By: #### L 100.0100, L500.4050 #### [facility] Laboratory [address] [place], [address] WBC (Bld) [#/Vol] 10.1 10*3/uL Normal 4.4-11.0 [facility] Comment on above: Performed By: #### L 100.0100, L500.4050 #### [facility] Laboratory [address] [place], [address] H AND P Exam - OB/GYNon - H&P Exam - SEWER LINE PHOTO INSPECTOR [facility] Medical Records Department [address] [address] H P Exam - SEWER LINE PHOTO INSPECTOR 03/20/24 1203 MR#: [id number] Acct: [id number] Name: MILDRED MICHEL Rep #: [id number] : 1990 33 From: Khoi King CNM PCP: KERRY Ruiz Status:ADM IN Location: [id number] HPI - General General Date of Admission: 03/20/24 Date of Service: 03/20/24 HPI Narrative MILDRED MICHEL, is a 33 F 38.6 weeks who presents to unit in active labor. admission orders given Maternal Data Information DICK Calculator Estimated Delivery Date Method Current WG Current Estimate 03/28/24 LMP (Certain) 38w 6d Final DICK: 03/28/24 Final DICK Source: US >20 weeks Gestational age: 38.6 PFSH [facility] Medical History (Updated 03/20/24 @ 12:06 by [...] Neosporin Allergy Intermediate Rash Verified 03/20/24 10:48 ([id number]-sqq-pptdm)) neomycin (From Neosporin Allergy Intermediate Rash Verified 03/20/24 10:48 (mnl-kie-rcvlm)) polymyxin B (From Neosporin Allergy Intermediate Rash Verified 03/20/24 10:48 (bqo-kth-hbich)) latex Allergy Rash Verified 03/20/24 10:48 banana [...] history of recent travel: Yes (FLA at [employer]) out of state: Yes out of country: [...] in: swimming frequency: 3-4 times per week song/sabianist: Confucianist seatbelt use: always do you feel safe [...] -???-???-???-???-???-? ??-???-? (more content not included)... Normal [facility] L509.8000on 03-20-2024 Syphilis Abs Non-Reactive Normal [facility] Comment on above: Performed By: #### L 100.0100, L500.4050 #### [facility] Laboratory [address] [place], [address] Type AND Screenon 03-20-2024 ABO and Rh group Nom (Bld) Blood group B Rh(D) positive Normal [facility] Comment on above: Order Comment: Labor Performed By: #### L 100.0100, L500.4050 #### [facility] Laboratory [address] [place], [address] [employer] Office Visit Reporton 03-19-2024 [employer] Office Visit Report [facility] [address] [place] [address] OFFICE VISIT Date of Service: 03/19/24 MR#: [id number] Acct: [id number] Name: MILDRED MICHEL Rep #: [id number] : 1990 Provider: CARA Cruz ams Age/Sex: 33/F Location[facility] Status: Signed Intake Vital Signs 03/14/24 08:28 03/19/24 08:16 03/19/24 11:50 Height 5 ft 2 in 5 ft 2 in 5 ft 2 in Weight: 252 lb BMI 46.0 BP 122/85 H Intake Visit Reasons: 38wOB, contractions, father just Application Assistant Required: No Is patient in pain?: No Allergies bacitracin (From Neosporin (vok-tjg-rkmgs)) Allergy (Intermediate, Verified 03/19/24 11:42) Rash neomycin (From Neosporin (cgc-wad-tgtlo)) Allergy (Intermediate, Verified 03/19/24 11:42) Rash polymyxin B (From Neosporin (oek-lrt-iomcx)) Allergy (Intermediate, Verified 03/19/24 11:42) Rash latex [...] history of recent travel: Yes (FLA at [employer]) out of state: Yes out of country: [...] in: swimming frequency: 3-4 times per week song/sabianist: Confucianist seatbelt use: always do you feel safe at home: Yes additional social history: - [facility] Zone History 1 Elective abortions Hx Para [...] Absolute Lymph 1.97 X10 3/uL Normal 0.83-4.51 [facility] Comment on above: Performed By: #### L 100.0100, L500.4050 #### [facility] Laboratory [address] [place], [address] Absolute Neut 5.1 X10 3/uL Normal 2.0-7.7 [facility] Comment on above: Performed By: #### L 100.0100, L500.4050 #### [facility] [address] [place], [address] Basophils/100 WBC (Bld) 0.5 % Normal 0-1 [facility] Comment on above: Performed By: #### L 100.0100, L500.4050 #### [facility] [address] [place], [address] Eosinophils/100 WBC (Bld) 1.0 % Normal 0-5 [facility] Comment on above: Performed By: #### L 100.0100, L500.4050 #### [facility] [address] [place], [address] Erythrocyte distribution width (RBC) [Ratio] 13.4 % Normal 11.6-14.6 [facility] Comment on above: Performed By: #### L 100.0100, L500.4050 #### [facility] [address] [place], [address] Hematocrit (Bld) [Volume fraction] 38.2 % Normal 37-47 [facility] Comment on above: Performed By: #### L 100.0100, L500.4050 #### [facility] [address] [place], [address] Hemoglobin (Bld) [Mass/Vol] 13.4 g/dL Normal 12.0-15.0 [facility] Comment on above: Performed By: #### L 100.0100, L500.4050 #### [facility] [address] [place], [address] IG% 0.400 Normal 0.0-0.9 [facility] Comment on above: Result Comment: IG% - Immature Granulocytes (promyelocytes, myelocytes and metamyelocytes) > 1% indicates that a LEFT SHIFT is Present. Performed By: #### L 100.0100, L500.4050 #### [facility] [address] [place], [address] Lymphocytes/100 WBC (Bld) 25.1 % Normal 19-41 [facility] Comment on above: Performed By: #### L 100.0100, L500.4050 #### [facility] [address] [place], [address] MCH (RBC) [Entitic mass] 29.1 pg Normal 27.0-32.0 [facility] Comment on above: Performed By: #### L 100.0100, L500.4050 #### [facility] [address] [place], [address] MCHC (RBC) [Mass/Vol] 35.1 g/dL Normal 32-36 [facility] Comment on above: Performed By: #### L 100.0100, L500.4050 #### [facility] [address] [place], [address] MCV (RBC) [Entitic vol] 83.0 fL Normal 81-99 [facility] Comment on above: Performed By: #### L 100.0100, L500.4050 #### [facility] [address] [place], [address] Monocytes/100 WBC (Bld) 7.6 % Normal 0-10 [facility] Comment on above: Performed By: #### L 100.0100, L500.4050 #### [facility] [address] [place], [address] Neutrophils/100 WBC (Bld) 65.4 % Normal 47-70 [facility] Comment on above: Performed By: #### L 100.0100, L500.4050 #### [facility] [address] [place], [address] Nucleated RBC (Bld) [#/Vol] 0 10*3/uL Normal 0-5 [facility] Comment on above: Performed By: #### L 100.0100, L500.4050 #### [facility] [address] [place], [address] Platelet mean volume (Bld) [Entitic vol] 11.7 fL Normal 6.2-12.0 [facility] Comment on above: Performed By: #### L 100.0100, L500.4050 #### [facility] [address] [place], [address] Platelets (Bld) [#/Vol] 188 10*3/uL Normal 150-450 [facility] Comment on above: Performed By: #### L 100.0100, L500.4050 #### [facility] [address] [place], [address] RBC (Bld) [#/Vol] 4.60 10*6/uL Normal 4.2-5.4 [facility] Comment on above: Performed By: #### L 100.0100, L500.4050 #### [facility] [address] [place], [address] RDW SD 40.0 fl Normal 35.1-43.9 [facility] Comment on above: Performed By: #### L 100.0100, L500.4050 #### [facility] [address] [place], [address] WBC (Bld) [#/Vol] 7.9 10*3/uL Normal 4.4-11.0 [facility] Comment on above: Performed By: #### L 100.0100, L500.4050 #### [facility] [address] [place], [address] Comprehensive Metabolic Prof ilon 03-14-2024 Albumin [Mass/Vol] 2.7 g/dL Low 3.2-5.0 [facility] Comment on above: Performed By: #### L 100.0100, L500.4050 #### [facility] [address] [place], [address] Albumin/Globulin [Mass ratio] 0.7 {ratio} Low 0.9-2.4 [facility] Comment on above: Performed By: #### L 100.0100, L500.4050 #### [facility] [address] [place], [address] ALK P 138 U/L High 45-117 [facility] Comment on above: Performed By: #### L 100.0100, L500.4050 #### [facility] [address] [place], [address] ALT [Catalytic activity/Vol] 15 U/L Normal 13-56 [facility] Comment on above: Performed By: #### L 100.0100, L500.4050 #### [facility] [address] [place], [address] AST [Catalytic activity/Vol] 10 U/L Low 15-37 [facility] Comment on above: Performed By: #### L 100.0100, L500.4050 #### [facility] [address] [place], [address] Bilirubin [Mass/Vol] 0.20 mg/dL Normal 0.20-1.00 [facility] Comment on above: Result Comment: For patients on eltrombopag therapy, use of Dimension [place] TBIL is not recommended. Performed By: #### L 100.0100, L500.4050 #### [facility] [address] [place], [address] BUN/CRE 19.9 RATIO Normal 10-20 [facility] Comment on above: Performed By: #### L 100.0100, L500.4050 #### [facility] [address] [place], [address] CA,Total 9.5 mg/dL Normal 8.5-10.1 [facility] Comment on above: Performed By: #### L 100.0100, L500.4050 #### [facility] [address] [place], [address] Chloride [Moles/Vol] 110 mmol/L High 98-107 [facility] Comment on above: Performed By: #### L 100.0100, L500.4050 #### [facility] [address] [place], [address] CO2 [Moles/Vol] 20.0 mmol/L Low 21.0-32.0 [facility] Comment on above: Performed By: #### L 100.0100, L500.4050 #### [facility] [address] [place], [address] Creatinine [Mass/Vol] 0.70 mg/dL Normal 0.55-1.02 [facility] Comment on above: Result Comment: The validity of the calculated GFR GFRAA in patients over 70 years has not been determined. Clinical correlation is essential. Performed By: #### L 100.0100, L500.4050 #### [facility] [address] [place], [address] EST GFR - AA 122 mL/min Normal >60 [facility] Comment on above: Result Comment: Afri can Grenadian GFR Calc Performed By: #### L 100.0100, L500.4050 #### [facility] [address] [place], [address] GAP 7 Normal 5-15 [facility] Comment on above: Performed By: #### L 100.0100, L500.4050 #### [facility] [address] [place], [address] GFR/1.73 sq M.predicted among non-blacks MDRD (S/P/Bld) [Vol rate/Area] 101 mL/min/{1.73_m2} Normal >60 [facility] Comment on above: Result Comment: Non- GFR Calc Performed By: #### L 100.0100, L500.4050 #### [facility] [address] [place], [address] Globulin (S) [Mass/Vol] 3.7 g/dL Normal 2.2-4.2 [facility] Comment on above: Performed By: #### L 100.0100, L500.4050 #### [facility] [address] [place], [address] Glucose [Mass/Vol] 85 mg/dL Normal 74-106 [facility] Comment on above: Performed By: #### L 100.0100, L500.4050 #### [facility] [address] [place], [address] Potassium [Moles/Vol] 4.0 mmol/L Normal 3.5-5.1 [facility] Comment on above: Performed By: #### L 100.0100, L500.4050 #### [facility] [address] [place], [address] Sodium [Moles/Vol] 137 mmol/L Normal 136-145 [facility] Comment on above: Performed By: #### L 100.0100, L500.4050 #### [facility] [address] [place], [address] T PROT 6.4 g/dL Normal 6.4-8.2 [facility] Comment on above: Performed By: #### L 100.0100, L500.4050 #### [facility] [address] [place], [address] Urea nitrogen [Mass/Vol] 14 mg/dL Normal 7-18 [facility] Comment on above: Performed By: #### L 100.0100, L500.4050 #### [facility] [address] [place], [address] [employer] Office Visit Reporton 03-14-2024 [employer] Office Visit Report [facility] [address] [place], [place] [address] OFFICE VISIT Date of Service: 03/14/24 MR#: [id number] Acct: [id number] Name: MILDRED MICHEL Rep #: [id number] : 1990 Provider: CARA Cruz ams Age/Sex: 33/F Location: [facility] Status: Signed Intake Vital Signs 01/23/24 09:41 03/13/24 14:23 03/14/24 08:26 03/14/24 08:28 Height 5 ft 3 in 5 ft 2 in 5 ft 2 in 5 ft 2 in Weight: 253 lb 4 oz BMI 46.3 BP 115/76 Intake Visit Reasons: [facility] US @ 7:45, 38 weeks/NST Application Assistant Required: No Is patient in pain?: No Allergies bacitracin (From Neosporin (xei-kau-idjhg)) Allergy (Intermediate, Verified 03/14/24 08:27) Rash neomycin (From Neosporin (lwi-pvn-itvtf)) Allergy (Intermediate, Verified 03/14/24 08:27) Rash polymyxin B (From Neosporin (jlo-gyr-dgikl)) Allergy (Intermediate, Verified 03/14/24 08:27) Rash latex [...] history of recent travel: Yes (FLA at [employer]) out of state: Yes out of country: [...] in: swimming frequency: 3-4 times per week song/sabianist: Confucianist seatbelt use: always do you feel safe [...] 241 lb (more content not included)... Normal [facility] Protein+Creatinine Ratio,Uri neon 03-14-2024 PROT:CRE RATIO 246 mg/g CRE High 0-200 [facility] Comment on above: Performed By: #### L 501.0900 #### [facility] [address] [place], [address] Protein (U) [Mass/Vol] 22.7 mg/dL High <11.[address] [facility] Comment on above: Performed By: #### L 501.0900 #### [facility] [address] [place], [address] UR CREAT 92.40 mg/dL Normal NO RANGE EST. [facility] Comment on above: Performed By: #### L 501.0900 #### [facility] [place], [address] Presley 03-13-2024 [facility] Telephone (FAMWS) MILDRED MICHEL ([id number]) 1990 F Date Time Provider Department 03/13/24 Bushra [facility] During your visit today, we recorded the following information about you: Violette Ngo RN 03/13/2024 1:56 PM Signed Patient calling for recommendation for symptoms of migraine headache x 4 days and feeling warm and shaky She was seen @ [facility] on 03/11 and says she was not treated due to being 38 weeks . She says she tried to call OB office today and is waiting for call back. While on phone with patient she received call back. She says OB advised ER evaluation and she is @ [facility] at this time. Violette Ngo RN Allergies As of Date: 03/13/2024 Noted Allergy Reaction BANANA 05/19/2016 8 - GI Upset LATEX 05/19/2016 2 - Rash Date Reviewed: 12/04/2023 Reviewed by: Daja Alfaro LPN - Fully Assessed Reason for Visit: Patient Question [7344] Prescriptions as of 03/13/2024 - sertraline (ZOLOFT) [...] Status:Closed by VIOLETTE NGO on 03/13/24 Normal [facility] Emergency Department Summary on 03-13-2024 Emergency Department Summary [facility] Medical Records Department [address] [place] [address] Emergency Department Summary 03/13/24 MR#: [id number] Acct: [id number] Name: MILDRED MICHEL Rep #: [id number] : 1990 33 From: Rey Feng MD [...] Similar to her migraines. She is taken grcn-tds-rroroal medication at home without relief. Went to [...] symptoms: Yes Recent Illness/Hospitalizatio n: No PFSH [facility] Medical History Cephalgia Bleeding in early Seasonal [...] Neosporin Allergy Intermediate Rash Verified 03/13/24 14:22 (cpi-kcx-zsphr)) neomycin (From Neosporin Allergy Intermediate Rash Verified 03/13/24 14:22 (iqr-tax-hlkrr)) polymyxin B (From Neosporin Allergy Intermediate Rash Verified 03/13/24 14:22 (qpg-oda-zzsvi)) latex Allergy Rash Verified 03/13/24 14:22 banana [...] history of recent travel: Yes (FLA at [employer]) out of state: Yes out of country: [...] in: swimming frequency: 3-4 times per week song/sabianist: Confucianist seatbelt use: always do you feel safe [...] Denies abdo (more content not included)... Normal [facility] Urgent Care Visit Reporton 0 03-11-2024 Urgent Care Visit Report [facility] [address] [place] [address] OFFICE VISIT Date of Service: 03/11/24 MR#: [id number] Acct: [id number] Name: MILDRED MICHEL Rep #: [id number] : 1990 Provider: KERRY Medina Age/Sex: 33/F Location: [facility] Status: Signed Intake Vital Signs 03/06/24 09:32 [...] SIDE Chief Complaint: MIGRAINE for 4 days Application Assistant Required: No Accompanied by: Self Is patient in pain?: Yes Allergies bacitracin (From Neosporin (vsg-fxu-ncwfo)) Allergy (Intermediate, Verified 03/11/24 12:19) Rash neomycin (From Neosporin (znk-hpk-efbth)) Allergy (Intermediate, Verified 03/11/24 12:19) Rash polymyxin B (From Neosporin (alc-cke-xptdw)) Allergy (Intermediate, Verified 03/11/24 12:19) Rash latex [...] history of recent travel: Yes (FLA at [employer]) out of state: Yes out of country: [...] in: swimming frequency: 3-4 times per week song/sabianist: Confucianist seatbelt use: always do you feel safe at home: Yes additional social history: - [employer] HPI HPI Chief Complaint: MIGRAINE for 4 days Details: MILDRED MICHEL, is a 33 F who presents to the office today for initial evaluation at [facility] for persistent left-sided moderate???severe headaches and bilateral ear pressure, with patient noting having a longstanding history of chronic recurring migraines. No complaints of fever, chills, lightheadedness/dizzin ess, nausea/vomiting, or chest pressure/shortness of breath/dyspnea on exertion. Non-smoker. 38 weeks gestation with an otherwise normal she so states, noting her last evaluation with [facility] was 5 days ago with an unremarkable examination on that day. Pkqv-qzi-szebyxs acetaminophen assists with headaches making them slightly [...] grossly norm (more content not included)... Normal [facility] Rule out Beta Strep (Grp. B) on 03-08-2024 FAN[facility] Group B Beta Streptococcus is not isolated. Normal [facility] Comment on above: Performed By: #### L 100.0100, L500.4050 #### [facility] [address] [place], [address] [employer] Office Visit Reporton 03-06-2024 [employer] Office Visit Report [facility] [address] [place] [address] OFFICE VISIT Date of Service: 03/06/24 MR#: [id number] Acct: [id number] Name: MILDRED MICHEL Rep #: [id number] : 1990 Provider: CARA Cruz ams Age/Sex: 33/F Location: [facility] [place] Status: Signed Intake Vital Signs 01/23/24 09:41 02/29/24 08:41 03/06/24 09:28 03/06/24 09:32 Height 5 ft 3 in 5 ft 3 in 5 ft 3 in 5 ft 3 in Weight: 254 lb BMI 44.9 BP 112/76 Intake Visit Reasons: 36 WK OB/NST Application Assistant Required: No Is patient in pain?: No Allergies bacitracin (From Neosporin (amu-ncq-mymvd)) Allergy (Intermediate, Verified 03/06/24 09:29) Rash neomycin (From Neosporin (vun-pfe-iakwd)) Allergy (Intermediate, Verified 03/06/24 09:29) Rash polymyxin B (From Neosporin (ikb-zmo-gvudj)) Allergy (Intermediate, Verified 03/06/24 09:29) Rash latex [...] history of recent travel: Yes (FLA at [employer]) out of state: Yes out of country: [...] in: swimming frequency: 3-4 times per week song/sabianist: Confucianist seatbelt use: always do you feel safe [...] Negative -???-???-?? (more content not included)... Normal [facility] [employer] Office Visit Reporton 02-29-2024 [employer] Office Visit Report [facility] [address] [place] [address] OFFICE VISIT Date of Service: 02/29/24 MR#: [id number] Acct: [id number] Name: MILDRED MICHEL Rep #: [id number] : 1990 Provider: MARILYN pardo Age/Sex: 33/F Location: [facility] Status: Signed Intake Vital Signs 01/23/24 09:41 02/22/24 09:32 02/29/24 08:38 02/29/24 08:41 Height 5 ft 3 in 5 ft 3 in 5 ft 3 in 5 ft 3 in Weight: 250 lb 248 lb BMI 44.2 43.9 BP 105/71 113/74 Intake Visit Reasons: NST ONLY Application Assistant Required: No Is patient in pain?: No Allergies bacitracin (From Neosporin (zno-fzc-gxjtt)) Allergy (Intermediate, Verified 02/29/24 08:38) Rash neomycin (From Neosporin (rvw-cvh-rnktq)) Allergy (Intermediate, Verified 02/29/24 08:38) Rash polymyxin B (From Neosporin (gkf-sim-jadnk)) Allergy (Intermediate, Verified 02/29/24 08:38) Rash latex [...] history of recent travel: Yes (FLA at [employer]) out of state: Yes out of country: [...] in: swimming frequency: 3-4 times per week song/sabianist: Confucianist seatbelt use: always do you feel safe [...] Prot -???-???-???-? (more content not included)... Normal [facility] Progress Noteon 11-20-2023 Nurse Educator Authentication Interface Message Text MFM attending note: [...] 1. Continued obstetrical care with her primary sampling theory teacher is recommended. 2. Follow up q4 weeks to evaluate biometric parameters and renals. These are planned with the [facility]. 3. surveillance as follows: as clinically [...] at 1 month after . Please call [phone]. 9. Other follow up as clinically indicated. Chart review and preparation: 10 minutes. Face to face: 15 minutes. Documentation and care coordination: 5 minutes. Total time spent on patient care today: 30 minutes. Normal [facility] - Chemistry and C hemistry - challengeon 11-16-2023 Glucose Ql (U) Negative [facility] Laboratory - Urinalysison Protein Ql (U) Negative [facility] - Chemistry and C hemistry - challengeon 10-16-2023 Glucose Ql (U) Negative [facility] - Urinalysison Protein Ql (U) Negative [facility] - Chemistry and C hemistry - challengeon 09-19-2023 Glucose Ql (U) Negative [facility] - Urinalysison Protein Ql (U) Negative [facility] - Chemistry and C hemistry - challengeOrdered By: Khoi King on 09-18-2023 Free T4 [Mass/Vol] 0.91 ng/dL 0.76-1.46 [facility] No Panel InformationOrdered By: Khoi King on 09-18-2023 Miscellaneous Test Comment MAILED SPECIMEN [facility] Thyroid Stimulating Hormone (TSH) 1.52 uIU/mL 0.358-3.74 [facility] Chlamydia trachomatis rRNA d etection by probe and target amplification methodOrdered By: Khoi King on 08-24-2023 C. trachomatis rRNA EZEKIEL+probe Ql (Unsp spec) Negative Negative [facility] Culture, urineOrdered By: Phillip King on 08-24-2023 Bacteria identified Cx Nom (U) Mixed Gram Pos & Gram Neg Org [facility] Bacteria identified Cx Nom (U) Mixed Gram Pos & Gram Neg Org [facility] Laboratory - Microbiology an d Antimicrobial susceptibilityOrdered By: Khoi King on 08-24-2023 N. gonorrhoeae DNA EZEKIEL+probe Ql (Unsp spec) Negative Negative [facility] Comment on above: Performed at: =[address] [id number] Director: Lashon Block MD, Phone: [phone] Absolute lymphocyte countOrd ered By: Khoi King on 08-15-2023 Lymphocytes Auto (Unsp spec) [#/Vol] 2.80 10*3/uL 0.83-4.51 [facility] Basophil percentageOrdered B y: Khoi King on 08-15-2023 Basophils/100 WBC (Bld) 0.7 % 0-1 [facility] Eosinophils/100 WBC (Bld) 4.2 % 0-5 [facility] Neutrophils (Bld) [#/Vol] 6.0 10*3/uL 2.0-7.7 [facility] Neutrophils/100 WBC (Bld) 59.7 % 47-70 [facility] WBC (Bld) [#/Vol] 10.0 10*3/uL 4.4-11.0 [facility] Blood erythrocytes count (nu mber/volume)Ordered By: Khoi King on 08-15-2023 RBC (Bld) [#/Vol] 4.82 10*6/uL 4.2-5.4 [facility] Blood hemoglobin measurement (mass/volume)Ordered By: Khoi King on 08-15-2023 Hemoglobin (Bld) [Mass/Vol] 14.8 g/dL 12.0-15.0 [facility] Blood lymphocytes/100 leukoc ytesOrdered By: Khoi King on 08-15-2023 Lymphocytes/100 WBC (Bld) 28.0 % 19-41 [facility] Blood monocytes/100 leukocyt esOrdered By: Khoi King on 08-15-2023 Monocytes/100 WBC (Bld) 7.0 % 0-10 [facility] Blood platelet mean volumeOr dered By: Khoi King on 08-15-2023 Platelet mean volume (Bld) [Entitic vol] 10.8 fL 6.2-12.0 [facility] Determination of erythrocyte mean corpuscular volume (MCV)Ordered By: Khoi King on 08-15-2023 MCV (RBC) [Entitic vol] 87.6 fL 81-99 [facility] HIV 1 and HIV-2 antibody ass ay with HIV-1 p24 antigen detectionOrdered By: Khoi King on 08-15-2023 HIV 1+2 Ab+HIV1 p24 Ag IA Ql Non-Reactive Nonreactive [facility] Hematocrit Auto (Bld) [Volum e fraction]Ordered By: Khoi King on 08-15-2023 Hematocrit (Bld) [Volume fraction] 42.2 % 37-47 [facility] - Hematology and Cell countsOrdered By: Khoi King on 08-15-2023 Erythrocyte distribution width (RBC) [Entitic vol] 40.5 fL 35.1-43.9 [facility] Erythrocyte distribution width (RBC) [Ratio] 12.6 % 11.6-14.6 [facility] Immature granulocytes/100 WBC (Bld) 0.400 % 0.0-0.9 [facility] Comment on above: IG% - Immature Granu locytes (promyelocytes, myelocytes and metamyelocytes) > 1% indicates that a LEFT SHIFT is Present. MCH (RBC) [Entitic mass] 30.7 pg 27.0-32.0 [facility] Nucleated RBC/100 WBC (Bld) [Ratio] 0 % 0-5 [facility] MCHC Auto (RBC) [Mass/Vol]Or dered By: Khoi King on 08-15-2023 MCHC (RBC) [Mass/Vol] 35.1 g/dL 32-36 [facility] No Panel InformationOrdered By: Khoi King on 08-15-2023 Hepatitis B Surface Antigen Non-Reactive Nonreactive [facility] Hepatitis C Antibody Non-Reactive Nonreactive [facility] Comment on above: Non Reactive: < 0.8 Equivocal: >/= 0.8 to < 1.0 Reactive: >/= 1.0The CDC recommends that a reactive/equivocal HCV antibody result be followed up by the HCV Nucleic Acid Amplificationtest (000631) Rubella IgG Antibody Reactive Nonreactive [facility] Comment on above: Antibody Results Int erpretation of Immune Status Non Reactive Presumed Non-Immune Equivocal Equivocal Reactive Presumed Immune Platelets bldOrdered By: Bernardo King on 08-15-2023 Platelets (Bld) [#/Vol] 282 10*3/uL 150-450 [facility] Serum Treponema species anti body detectionOrdered By: Khoi King on 08-15-2023 Treponema sp Ab Ql (S) Non-Reactive [facility] Serum or plasma choriogonado tropin detectionOrdered By: Khoi King on 08-15-2023 HCG ( test) [place]l [address] mIU/mL <4 [facility] Comment on above: hCG levels with Gest ational AgeGestational Age hCG mIU/mL (IU/L)0.2 - 1 week 5 - 501-2 weeks 50 - 5002-3 weeks 100 - 61179-0 weeks 500 - 670370-9 weeks 1000 - 470905-6 weeks 07105 - 100,0006-8 weeks 66356 - 200,0002-3 months 39167 - 100,000 Whole blood hemoglobin A1c/t otal hemoglobin ratio (mass fraction)Ordered By: Khoi King on 08-15-2023 HbA1c (Bld) [Mass fraction] 5.3 % 3.8-5.6 [facility] Comment on above: Normal < 5.7 % Predi abetic 5.7 - 6.4 % Diabetic >or= 6.5 % Please note range changes. HCG QUAL UR B/Oon 02-28-2023 status Negative neg - [facility] Quality Check Yes [facility] UA DIP, URINE (POC)on 2022 BILIRUBIN UA (POCT) Negative Negative [facility] CLARITY UA (POCT) Clear [facility] COLOR UA (POCT) Yellow [facility] GLUCOSE UA (POCT) Negative Negative mg/dL [facility] HEMOGLOBIN/BLOOD UA (POCT) Negative Negative [facility] KETONE UA (POCT) Negative Negative mg/dL [facility] LEUKOCYTES UA (POCT) Negative Negative [facility] NITRITE UA (POCT) Negative Negative [facility] PH UA (POCT) 5.5 4.5 - 8.0 [facility] Protein Ql (U) Negative Negative mg/dL [facility] SPECIFIC GRAVITY UA (POCT) 1.025 1.005 - 1.030 [facility] UROBILINOGEN UA (POCT) 0.2 E.U./dL Liana l E.U./dL [facility] Serum or plasma progesterone measurement (mass/volume)on 07-29-2022 Progesterone [Mass/Vol] 4.79 ng/mL See Comment [facility] Work Phone: Comment on above: [...] 08-21-2020 IMPRESSION: Normal x-ray of the pelvis. Hydrogen Cell Tender: PSCB Transcribe Date/Time: Aug 21 2020 3:14P Dictated by : DMITRY GALLEGO MD This examination was interpreted and the report reviewed and electronically signed by: DMITRY GALLEGO MD on Aug 21 2020 3:14PM [facility] DIVISION OF RADIOLOGY * * *Final [...] soft tissue abnormality. DIVISION OF RADIOLOGY Provider, [facility] - 08/21/2020 * * *Final Report* * [...] IMPRESSION IMPRESSION: Normal x-ray of the pelvis. Hydrogen Cell Tender: PSCB Transcribe Date/Time: Aug 21 2020 3:14P Dictated by : DMITRY GALLEGO MD This examination was interpreted and the report reviewed and electronically signed by: DMITRY GALLEGO MD on Aug 21 2020 3:14PM EST [facility] Radiology Study observation (narrative) [facility] XR Pelvis and Hip - left AP and Lateral frogOrdered By: Ccf Provider on 08-21-2020 [facility] Vital Signs Date Time Vital Sign Value Performing Clinician Facility 01-31-2025 07:29-0400 Body mass index (BMI) [Ratio] 37.02 kg/m2 Adam Carbajal RETAIL SALES TEAMMATE.STOCK CONTROL CLERK Work Phone: [facility] 01-31-2025 07:29-0400 Body temperature 98.29 [degF] Adam Carbajal RETAIL SALES TEAMMATE.STOCK CONTROL CLERK Work Phone: [facility] 01-31-2025 07:29-0400 Body weight 107.2 kg Adam Carbajal RETAIL SALES TEAMMATE.STOCK CONTROL CLERK Work Phone: [facility] 01-31-2025 07:29-0400 Diastolic blood pressure 76 mm[Hg] Adam Carbajal RETAIL SALES TEAMMATE.STOCK CONTROL CLERK Work Phone: [facility] 01-31-2025 07:29-0400 Heart rate 85 /min Adam Carbajal RETAIL SALES TEAMMATE.STOCK CONTROL CLERK Work Phone: [facility] 01-31-2025 07:29-0400 Respiratory rate 18 /min Adam Carbajal RETAIL SALES TEAMMATE.STOCK CONTROL CLERK Work Phone: [facility] 01-31-2025 07:29-0400 SaO2% (BldA) [Mass fraction] 98 % Adam Carbajal RETAIL SALES TEAMMATE.STOCK CONTROL CLERK Work Phone: [facility] 01-31-2025 07:29-0400 Systolic blood pressure 114 mm[Hg] Adam Carbajal RETAIL SALES TEAMMATE.STOCK CONTROL CLERK Work Phone: [facility] 12-08-2024 12:45-0400 Heart rate 78 /min Dr. Norman Kaplan DO Work Phone: [facility] 12-08-2024 12:45-0400 Respiratory rate 18 /min Dr. Norman Kaplan DO Work Phone: [facility] 12-08-2024 12:45-0400 SaO2% (BldA) [Mass fraction] 98 % Dr. Norman Kaplan DO Work Phone: [facility] 12-08-2024 10:45-0400 Body height 157.[address] Norman Kaplan DO Work Phone: [facility] 12-08-2024 10:45-0400 Body mass index (BMI) [Ratio] 43.2 kg/m2 Dr. Norman Kaplan DO Work Phone: [facility] 12-08-2024 10:45-0400 Body temperature 97.4 [degF] Dr. Norman Kaplan DO Work Phone: [facility] 12-08-2024 10:45-0400 Body weight 107.[address] Norman Kaplan DO Work Phone: [facility] 12-08-2024 10:45-0400 Diastolic blood pressure 77 mm[Hg] Dr. Norman Kaplan DO Work Phone: [facility] 12-08-2024 10:45-0400 Systolic blood pressure 119 mm[Hg] Dr. Norman Kaplan DO Work Phone: [facility] 12-08-2024 10:28-0400 Body mass index (BMI) [Ratio] 36.22 kg/m2 Temitpoe Navarrete APRN.STOCK CONTROL CLERK Work Phone: [facility] 12-08-2024 10:28-0400 Body temperature 98.01 [degF] Temitope Navarrete APRN.STOCK CONTROL CLERK Work Phone: [facility] 12-08-2024 10:28-0400 Body weight 104.9 kg Temitope Navarrete APRN.STOCK CONTROL CLERK Work Phone: [facility] 12-08-2024 10:28-0400 Diastolic blood pressure 72 mm[Hg] Temitope Navarrete APRN.STOCK CONTROL CLERK Work Phone: [facility] 12-08-2024 10:28-0400 Heart rate 80 /min Temitope Navarrete APRN.STOCK CONTROL CLERK Work Phone: [facility] 12-08-2024 10:28-0400 Respiratory rate 16 /min Temitope Navarrete APRN.STOCK CONTROL CLERK Work Phone: [facility] 12-08-2024 10:28-0400 SaO2% (BldA) [Mass fraction] 99 % Temitope Navarrete APRN.STOCK CONTROL CLERK Work Phone: [facility] 12-08-2024 10:28-0400 Systolic blood pressure 106 mm[Hg] Temitope Navarrete RETAIL SALES TEAMMATE.STOCK CONTROL CLERK Work Phone: [facility] 10-08-2024 10:08-0500 Body mass index (BMI) [Ratio] 39.12 kg/m2 Ana Camejo APRN.STOCK CONTROL CLERK Work Phone: [facility] 10-08-2024 10:08-0500 Body temperature 98.4 [degF] Ana Camejo APRN.STOCK CONTROL CLERK Work Phone: [facility] 10-08-2024 10:08-0500 Body weight 113.3 kg Ana Camejo APRN.STOCK CONTROL CLERK Work Phone: [facility] 10-08-2024 10:08-0500 Diastolic blood pressure 76 mm[Hg] Ana Camejo APRN.STOCK CONTROL CLERK Work Phone: [facility] 10-08-2024 10:08-0500 Heart rate 96 /min Ana Camejo RETAIL SALES TEAMMATE.STOCK CONTROL CLERK Work Phone: [facility] 10-08-2024 10:08-0500 Respiratory rate 16 /min Ana Camejo APRN.STOCK CONTROL CLERK Work Phone: [facility] 10-08-2024 10:08-0500 SaO2% (BldA) [Mass fraction] 97 % Ana Camejo APRN.STOCK CONTROL CLERK Work Phone: [facility] 10-08-2024 10:08-0500 Systolic blood pressure 110 mm[Hg] Ana Camejo RETAIL SALES TEAMMATE.STOCK CONTROL CLERK Work Phone: [facility] 06-04-2024 15:38-0400 Body mass index (BMI) [Ratio] 37.59 kg/m2 Monica Gerard RETAIL SALES TEAMMATE.STOCK CONTROL CLERK Work Phone: [facility] 06-04-2024 15:38-0400 Body weight 108.86 kg Monica Gerard RETAIL SALES TEAMMATE.STOCK CONTROL CLERK Work Phone: [facility] 06-04-2024 15:38-0400 Diastolic blood pressure 72 mm[Hg] Monica Gerard RETAIL SALES TEAMMATE.STOCK CONTROL CLERK Work Phone: [facility] 06-04-2024 15:38-0400 Heart rate 87 /min Monica Gerard RETAIL SALES TEAMMATE.STOCK CONTROL CLERK Work Phone: [facility] 06-04-2024 15:38-0400 Respiratory rate 16 /min Monica Gerard RETAIL SALES TEAMMATE.STOCK CONTROL CLERK Work Phone: [facility] 06-04-2024 15:38-0400 SaO2% (BldA) [Mass fraction] 99 % Monica Gerard RETAIL SALES TEAMMATE.STOCK CONTROL CLERK Work Phone: [facility] 06-04-2024 15:38-0400 Systolic blood pressure 126 mm[Hg] Monica Gerard RETAIL SALES TEAMMATE.STOCK CONTROL CLERK Work Phone: [facility] 12-11-2023 08:33-0400 Body height 160.02 cm PA NA Collins PA Work Phone: [facility] 12-11-2023 08:33-0400 Body mass index (BMI) [Ratio] 43.4 kg/m2 PA NA Collins PA Work Phone: [facility] 12-11-2023 08:33-0400 Body weight 111.24 kg PA NA Collins PA Work Phone: [facility] 12-11-2023 08:33-0400 Diastolic blood pressure 78 mm[Hg] PA NA Collins PA Work Phone: [facility] 12-11-2023 08:33-0400 Systolic blood pressure 120 mm[Hg] PA NA Collins PA Work Phone: [facility] 12-04-2023 12:52-0400 Body weight 111.13 kg NA Collins PA-C Work Phone: [facility] 12-04-2023 12:52-0400 Diastolic blood pressure 60 mm[Hg] NA Collins PA-C Work Phone: [facility] 12-04-2023 12:52-0400 Heart rate 85 /min NA Collins PA-C Work Phone: [facility] 12-04-2023 12:52-0400 Respiratory rate 16 /min NA Collins PA-C Work Phone: [facility] 12-04-2023 12:52-0400 SaO2% (BldA) [Mass fraction] 98 % NA Collins PA-C Work Phone: [facility] 12-04-2023 12:52-0400 Systolic blood pressure 104 mm[Hg] NA Collins PA-C Work Phone: [facility] 11-16-2023 12:01-0400 Body mass index (BMI) [Ratio] 43.2 kg/m2 PA NA Collins PA Work Phone: [facility] 11-16-2023 12:01-0400 Body weight 110.67 kg PA NA Collins PA Work Phone: [facility] 11-16-2023 12:01-0400 Diastolic blood pressure 75 mm[Hg] PA NA Collins PA Work Phone: [facility] 11-16-2023 12:01-0400 Systolic blood pressure 116 mm[Hg] PA NA Collins PA Work Phone: [facility] 10-16-2023 14:22-0500 Body mass index (BMI) [Ratio] 42.5 kg/m2 PA NA Collins PA Work Phone: [facility] 10-16-2023 14:22-0500 Body weight 108.91 kg PA NA Collins PA Work Phone: [facility] 10-16-2023 14:22-0500 Diastolic blood pressure 72 mm[Hg] PA NA Collins PA Work Phone: [facility] 10-16-2023 14:22-0500 Systolic blood pressure 124 mm[Hg] PA NA Collins PA Work Phone: 7(390)[phone] [place] [address] 09-19-2023 14:58-0500 Body height 160.02 cm PA NA Collins PA Work Phone: 4(582)[phone] [place] [address] 09-19-2023 14:58-0500 Body mass index (BMI) [Ratio] 41.6 kg/m2 PA NA Collnis PA Work Phone: 2(393)370-633648 [place] [address] 09-19-2023 14:58-0500 Diastolic blood pressure 75 mm[Hg] PA NA Collins PA Work Phone: 1(766)308-581048 [place] [address] 09-19-2023 14:58-0500 Systolic blood pressure 114 mm[Hg] PA NA Collins PA Work Phone: 8(294)250-723048 [place] [address] 09-19-2023 14:42-0500 Body weight 106.7 kg PA NA Collins PA Work Phone: 2(144)645-966148 [place] [address] 08-24-2023 13:18-0500 Body height 160.02 cm PA NA Collins PA Work Phone: 6(706)817-810748 [place] [address] 08-24-2023 13:17-0500 Body mass index (BMI) [Ratio] 42.7 kg/m2 PA NA Collins PA Work Phone: 1(996)144-899948 [place] [address] 08-24-2023 13:17-0500 Body weight 109.48 kg PA NA Collins PA Work Phone: [facility] 08-24-2023 13:17-0500 Diastolic blood pressure 69 mm[Hg] PA NA Collins PA Work Phone: [facility] 08-24-2023 13:17-0500 Systolic blood pressure 118 mm[Hg] PA NA Collins PA Work Phone: [facility] 04-09-2023 09:28-0400 Body temperature 98.49 [degF] Zelda Sonya RETAIL SALES TEAMMATE.STOCK CONTROL CLERK Work Phone: [facility] 04-09-2023 09:28-0400 Body weight 108.05 kg Zelda Sonya RETAIL SALES TEAMMATE.STOCK CONTROL CLERK Work Phone: [facility] 04-09-2023 09:28-0400 Diastolic blood pressure 82 mm[Hg] Zelda Sonya RETAIL SALES TEAMMATE.STOCK CONTROL CLERK Work Phone: [facility] 04-09-2023 09:28-0400 Heart rate 100 /min Zelda Sonya RETAIL SALES TEAMMATE.STOCK CONTROL CLERK Work Phone: [facility] 04-09-2023 09:28-0400 Respiratory rate 21 /min Zelda Sonya RETAIL SALES TEAMMATE.STOCK CONTROL CLERK Work Phone: [facility] 04-09-2023 09:28-0400 SaO2% (BldA) [Mass fraction] 99 % Zelda Sonya RETAIL SALES TEAMMATE.STOCK CONTROL CLERK Work Phone: [facility] 04-09-2023 09:28-0400 Systolic blood pressure 122 mm[Hg] Zelda Sonya RETAIL SALES TEAMMATE.STOCK CONTROL CLERK Work Phone: [facility] 02-28-2023 07:24-0400 Body temperature 97.81 [degF] Magy Praisler-Wood RETAIL SALES TEAMMATE.STOCK CONTROL CLERK Work Phone: [facility] 02-28-2023 07:24-0400 Body weight 108.86 kg Magy Praisler-Wood RETAIL SALES TEAMMATE.STOCK CONTROL CLERK Work Phone: [facility] 02-28-2023 07:24-0400 Diastolic blood pressure 74 mm[Hg] Magy Praisler-Wood RETAIL SALES TEAMMATE.STOCK CONTROL CLERK Work Phone: [facility] 02-28-2023 07:24-0400 Heart rate 88 /min Magy Praisler-Wood RETAIL SALES TEAMMATE.STOCK CONTROL CLERK Work Phone: [facility] 02-28-2023 07:24-0400 Respiratory rate 16 /min Magy Praisler-Wood RETAIL SALES TEAMMATE.STOCK CONTROL CLERK Work Phone: [facility] 02-28-2023 07:24-0400 SaO2% (BldA) [Mass fraction] 98 % Magy Stein RETAIL SALES TEAMMATE.STOCK CONTROL CLERK Work Phone: [facility] 02-28-2023 07:24-0400 Systolic blood pressure 122 mm[Hg] Magy Stein RETAIL SALES TEAMMATE.STOCK CONTROL CLERK Work Phone: [facility] 01-13-2022 12:39-0400 Body temperature 98.6 [degF] Zelda Hassan RETAIL SALES TEAMMATE.STOCK CONTROL CLERK Work Phone: [facility] 01-13-2022 12:39-0400 Body weight 113.4 kg Zelda Hassan RETAIL SALES TEAMMATE.STOCK CONTROL CLERK Work Phone: [facility] 01-13-2022 12:39-0400 Diastolic blood pressure 66 mm[Hg] Zelda Giangk RETAIL SALES TEAMMATE.STOCK CONTROL CLERK Work Phone: [facility] 01-13-2022 12:39-0400 Heart rate 102 /min Zelda Hassan RETAIL SALES TEAMMATE.STOCK CONTROL CLERK Work Phone: [facility] 01-13-2022 12:39-0400 Respiratory rate 16 /min Zelda Sonya RETAIL SALES TEAMMATE.STOCK CONTROL CLERK Work Phone: [facility] 01-13-2022 12:39-0400 SaO2% (BldA) [Mass fraction] 97 % Zelda Hassan RETAIL SALES TEAMMATE.STOCK CONTROL CLERK Work Phone: [facility] 01-13-2022 12:39-0400 Systolic blood pressure 118 mm[Hg] Zelda Sonya RETAIL SALES TEAMMATE.STOCK CONTROL CLERK Work Phone: [facility] Encounters Encounter Date Encounter Type Care Provider Facility Start: 02-27-2025 ambulatory Zebulun Beam VSC Facili ty:[facility] Start: 02-26-2025 ambulatory Zebulun Beam VSC Facili ty:[facility] Start: 02-25-2025 ambulatory Facility:[id number] Start: 01-31-2025 End: 01-31-2025 Office outpatient visit 15 minutes Adam Carbajal RANGEL.STOCK CONTROL CLERK Work Phone: [facility] Comment on above: Hand foot and mouth disease (Primary Dx) Start: 01-31-2025 End: 01-31-2025 ambulatory [facility] Facility:[facility] Start: 01-19-2025 End: 01-20-2025 Refill Monica Gerard APRN.STOCK CONTROL CLERK Work Phone: [facility] Comment on above: Refill Request Start: 12-08-2024 End: 12-08-2024 Emergency department patient visit Dr. Norman Kaplan DO Work Phone: -Emergency Department Work Phone: Start: 12-08-2024 End: 12-08-2024 ambulatory MARK COLLINS Facility:[facility] Start: 12-08-2024 End: 12-08-2024 Patient encounter procedure Temitope Navarrete APRN.STOCK CONTROL CLERK Work Phone: [facility] Comment on above: Headache, unspecifie d headache type (Primary Dx); Vomiting and diarrhea Start: 10-08-2024 End: 10-08-2024 Subsequent hospital visit by physician Xr [facility] Work Phone: Radiology Comment on above: Acute cough [R05.1] Start: 10-08-2024 End: 10-08-2024 ambulatory [facility] Facility:[facility] Start: 10-08-2024 End: 10-08-2024 Patient encounter procedure Ana Camejo APRN.STOCK CONTROL CLERK Work Phone: [facility] Comment on above: Community acquired p neumonia, unspecified laterality (Primary Dx); Acute cough Start: 10-03-2024 End: 10-04-2024 Telephone encounter Monica Gerard APRN.STOCK CONTROL CLERK Work Phone: [facility] Comment on above: FMLA Paperwork (Due by 10/05/24) Start: 06-04-2024 End: 06-04-2024 Office outpatient visit 25 minutes Monica Gerard APRN.STOCK CONTROL CLERK Work Phone: [facility] Comment on above: Adjustment reaction with anxiety and depression (Primary Dx); Need for influenza vaccination; Gastritis with hemorrhage, unspecified chronicity, unspecified gastritis type; Hypothyroidism, acquired Start: 06-04-2024 End: 06-04-2024 ambulatory MARK COLLINS Facility:[facility] Start: 05-10-2024 End: 05-10-2024 ambulatory Gudelia Dominguez Facility:[facility] Start: 04-10-2024 End: 04-10-2024 ambulatory Albertina Wilkerson NP Facility:[facility] Start: 03-26-2024 ambulatory Bushra PAYNE Fac ility:[facility] Start: 03-25-2024 End: 03-25-2024 ambulatory Bushra PAYNE Facility:[facility] Start: 03-21-2024 ambulatory Bushra PAYNE Fac ility:[facility] Start: 03-20-2024 ambulatory Bushra PAYNE Fac ility:[facility] Start: 03-20-2024 End: 03-23-2024 Evaluation and management of inpatient Gudelia Poly Euceda Facility:[facility] Start: 03-19-2024 End: 03-19-2024 ambulatory Bushra PAYNE Facility:[facility] Start: 03-14-2024 End: 03-14-2024 ambulatory MARK COLLINS [facility] Start: 03-14-2024 End: 03-14-2024 ambulatory Bushra PAYNE Facility:[facility] Start: 03-13-2024 End: 03-13-2024 Emergency department patient visit Bushra PAYNE Facility:[facility] Start: 03-13-2024 Telephone encounter Bushra Collins PA-C Work Phone: [facility] Comment on above: Patient Question Start: 03-11-2024 End: 03-11-2024 ambulatory Bushra PAYNE Facility:[facility] Start: 03-06-2024 End: 03-06-2024 ambulatory Bushra PAYNE Facility:[facility] Start: 03-06-2024 End: 03-06-2024 ambulatory Khoi King Facility:[facility] Start: 02-29-2024 End: 02-29-2024 ambulatory Bushra PAYNE Facility:[facility] Start: 02-15-2024 End: 02-15-2024 ambulatory MARK BROWNING COLLINS [facility] Start: 01-18-2024 End: 01-18-2024 ambulatory MARK BROWNING COLLINS [facility] Start: 12-21-2023 End: 12-21-2023 ambulatory MARK BROWNING COLLINS [facility] Start: 12-11-2023 End: 12-11-2023 ambulatory KERRY PAYNE Work Phone: [facility] Work Phone: Start: 12-11-2023 End: 12-11-2023 Patient encounter procedure KERRY PAYNE Work Phone: [facility] Work Phone: Start: 12-04-2023 End: 12-04-2023 Patient encounter procedure Bushra Collins PA-C Work Phone: [facility] Comment on above: Female infertility a ssociated with anovulation (Primary Dx); PCOS (polycystic ovarian syndrome); Passive suicidal ideations; ABHILASH (generalized anxiety disorder); Insomnia, unspecified type; Adjustment reaction with anxiety and depression; Obesity, Class III, BMI >= 40; Chronic left hip pain; Vitamin D deficiency Start: 11-20-2023 End: 11-20-2023 ambulatory CAREY NASSAR [facility] Start: 11-16-2023 End: 11-16-2023 Patient encounter procedure KERRY PAYNE Work Phone: [facility] Work Phone: Start: 11-07-2023 End: 11-07-2023 ambulatory MD [facility] Start: 10-16-2023 End: 10-16-2023 Patient encounter procedure KERRY PAYNE Work Phone: [facility] Work Phone: Start: 09-19-2023 End: 09-19-2023 Patient encounter procedure KERRY PAYNE Work Phone: [facility] Work Phone: Start: 09-18-2023 End: 09-18-2023 ambulatory PA Bushra PAYNE Work Phone: [facility] Work Phone: Start: 09-18-2023 End: 09-18-2023 Patient encounter procedure KERRY PAYNE Work Phone: [facility] Work Phone: Start: 08-24-2023 End: 08-24-2023 ambulatory PA Bushra PAYNE Work Phone: [facility] Work Phone: Start: 08-24-2023 End: 08-24-2023 Patient encounter procedure KERRY PAYNE Work Phone: [facility] Specimen Work Phone: Start: 08-24-2023 End: 08-24-2023 Patient encounter procedure KERRY PAYNE Work Phone: [facility] Work Phone: Start: 08-15-2023 End: 08-15-2023 ambulatory [facility] Work Phone: Start: 08-15-2023 End: 08-15-2023 Patient encounter procedure [facility] Work Phone: Start: 08-11-2023 Telephone encounter Bushra Collins PA-C Work Phone: [facility] Comment on above: Patient Question Start: 07-21-2023 Telephone encounter Bushra Collins PA-C Work Phone: [facility] Comment on above: requesting lab order Start: 04-09-2023 End: 04-09-2023 Patient encounter procedure Zelda Hassan APRN.CNP Work Phone: [facility] Comment on above: URI with cough and c ongestion (Primary Dx); Wheezing Start: 03-01-2023 Telephone encounter Mauro Shirley PA Work Phone: [facility] Comment on above: Results Start: 02-28-2023 End: 02-28-2023 Patient encounter procedure Magy Stein APRN.STOCK CONTROL CLERK Work Phone: [facility] Comment on above: Pelvic pressure in f christinale (Primary Dx) Start: 02-03-2023 Telephone encounter Jony Lawson MD Work Phone: [facility] Comment on above: Results Start: 12-19-2022 End: 12-19-2022 ambulatory Jony Lawson MD Work Phone: [facility] Comment on above: Nausea (Primary Dx); Gastritis with hemorrhage, unspecified chronicity, unspecified gastritis type Start: 12-19-2022 End: 12-19-2022 Telemedicine consultation with patient oJny Lawson MD Work Phone: [facility] Start: 12-13-2022 Refill Bushra Marx on PA-C Work Phone: [facility] Comment on above: Refill Request Start: 07-29-2022 End: 07-29-2022 ambulatory [facility] Work Phone: Start: 07-29-2022 End: 07-29-2022 Patient encounter procedure [facility] Start: 04-21-2022 Telephone encounter Bushra Collins PA-C Work Phone: [facility] Comment on above: Forms (FMLA) Start: 01-13-2022 ambulatory Bushra Marx on PA-C Work Phone: [facility] Comment on above: Hives Start: 01-13-2022 End: 01-13-2022 Patient encounter procedure Zelda Hassan APRN.STOCK CONTROL CLERK Work Phone: [facility] Comment on above: Rash (Primary Dx); Redness of skin Start: 12-09-2021 ambulatory Bushra Marx on PA-C Work Phone: [facility] Comment on above: Increase of medicati on Start: 01-21-2021 Patient encounter status [facility] Start: 08-21-2020 End: 08-21-2020 Subsequent hospital visit by physician Xr [facility] Work Phone: Radiology Comment on above: Hip pain [M25.559] Procedures Date Procedure Procedure Detail Performing Clinician Start: 12-08-2024 SARS-CoV-2, Influenz a & RSV (PCR) Dr. Norman Kaplan DO Work Phone: Start: 12-08-2024 X-ray of chest, PA a nd lateral views Dr. Norman Kaplan DO Work Phone: Start: 12-08-2024 INFLUENZA A&B MOLECU LAR (POC) Temitope Navarrete RETAIL SALES TEAMMATE.STOCK CONTROL CLERK Work Phone: Start: 10-08-2024 Radiologic exam ches t 2 views Ana Camejo RETAIL SALES TEAMMATE.STOCK CONTROL CLERK Work Phone: Start: 08-24-2023 Urine culture PA SMOOTH Rodriguez Work Phone: Start: 02-28-2023 End: 02-28-2023 Urnls dip stick/tablet rgnt auto w/o microscopy Magy Stein RETAIL SALES TEAMMATE.STOCK CONTROL CLERK Work Phone: Start: 11-16-2021 Adult depression screening [...] RSV Vaccine (1 - 1-dose 60+ series) [facility] Start: 01-22-2034 Urine microalbumin profile DTaP,Tdap,Td Vaccine (3 - Td or Tdap) [facility] Start: 05-21-[address] [facility] Start: 01-21-2026 HPV TEST[address] HPV TESTING [facility] Start: 01-21-2026 Screening for malign ant neoplasm of cervix HPV Testing [facility] Start: 06-04-2025 Annual PCP Team Appliance Worker venkatesh Disease Visit Annual PCP Team Chronic Disease Visit [facility] Start: 12-08-2024 [facility] Start: 06-04-2024 End: 06-04-2024 Patient encounter procedure 06/04/2024 3:40 PM EDT Office Visit [facility] [address] [place] [address] Bushra Collins PA-C [address] [place] [address] [facility] Comment on above: 6 month follow up Start: 05-05-2024 Covid-19 Vaccine ( season) Covid-19 Vaccine () [facility] Start: 05-05-2024 Influenza vaccination [facility] Start: 12-11-2023 Antithrombin III ass ay, functional [facility] Start: 12-11-2023 Beta 2 glycoprotein 1 Ab IgA and IgG and IgM panel - Serum [facility] Start: 12-11-2023 Cardiolipin IgG and IgM panel - Serum [facility] Start: 12-11-2023 Factor V Leiden genotype [facility] Start: 12-11-2023 Lupus anticoagulant assay [facility] Start: 12-11-2023 Plasma total protein S measurement [facility] Start: 12-11-2023 Procedure [facility] Start: 12-11-2023 Protein C, functiona l assay [facility] Start: 09-04-2023 Behavioral Health Screening Behavioral Health Screening [facility] Start: 09-04-2023 Depression Assessment Depression Ass essment [facility] Start: 07-21-2023 End: 10-20-2023 Choriogonadotropin.beta subunit [Units/volume] in Serum or Plasma HCG QUANTITATIVE Lab Routine Positive test Expected: 07/21/2023, Expires: 10/20/2023 [facility] Work Phone: Comment on above: Expected: 07/21/2023 , Expires: 10/20/2023 Start: 05-30-[address]AP TEST[address] [facility] Start: 05-30-2023 Screening for malign ant neoplasm of cervix Pap Testing [facility] Start: 05-05-2023 Covid-19 Vaccine () Covid-19 Vaccine () [facility] Start: 05-05-2023 Influenza vaccination [facility] Start: 03-17-2023 End: 02-03-2024 25-hydroxyvitamin D3 [Mass/volume] in Serum or Plasma VITAMIN D 25 HYDROXY Lab Routine Vitamin D deficiency Expected: 03/17/2023, Expires: 02/03/2024 [facility] Work Phone: Comment on above: Expected: 03/17/2023 , Expires: 02/03/2024 Start: 03-17-2023 End: 05-17-2023 Parathyrin.intact [Mass/volume] in Serum or Plasma PTH INTACT BLD Lab Routine Vitamin D deficiency Expected: 03/17/2023, Expires: 05/17/2023 [facility] Work Phone: Comment on above: Expected: 03/17/2023 , Expires: 05/17/2023 Start: 11-16-2022 Adult depression screening assessment DEPRESSION SCREENING [facility] Start: 09-04-2022 DEPRESSION ASSESSMENT DEPRESSION ASS ESSMENT [facility] Start: 05-05-2022 Influenza vaccination [facility] Start: 02-12-2022 COVID-19 VACCINE (3 - Booster for Pfizer series) COVID-19 VACCINE (3 - Booster for Pfizer series) [facility] Start: 01-29-2022 [facility] Comment on above: Postponed from 08/17 (Declined at this time) Start: 01-29-2022 HIV SCREENING HIV SCREENING [facility] Comment on above: Postponed from 08/17 (Declined at this time) Start: 11-09-2021 COVID-19 VACCINE (3 - Booster for Pfizer series) COVID-19 VACCINE (3 - Booster for Pfizer series) [facility] Start: 11-09-2021 COVID-19 VACCINE (3 - Pfizer series) COVID-19 VACCINE (3 - Pfizer series) [facility] Start: 09-04-2021 DEPRESSION ASSESSMENT DEPRESSION ASS ESSMENT [facility] Start: 05-30-2021 Screening for malign ant neoplasm of cervix Cervical Cancer Screening [facility] Start: 2008 Hepatitis B Vaccine (1 of 3 - 19+ 3-dose series) Hepatitis B Vaccine (1 of 3 - 19+ 3-dose series) [facility] Start: 2007 Depression Screening Depression Scre ening [facility] Start: 2007 HEPATITIS C SCREENING HEPATITIS C [facility] Start: 2007 Hepatitis C screening Hepatitis C [facility] Start: 2007 HIV SCREENING HIV SCREENING [facility] Start: 2007 HIV screening HIV Screening [facility] Start: 1989 HEPATITIS B (1 of 3 - 3-dose series) HEPATITIS B (1 of 3 - 3-dose series) [facility] Start: 1989 Hepatitis B Vaccine (1 of 3 - 3-dose series) Hepatitis B Vaccine (1 of 3 - 3-dose series) [facility] Bacteria identified in Urine by Culture URINE CULTURE Microbiology Routine Pelvic pressure in female Ordered: 02/28/2023 [facility] Work Phone: Comment on above: Ordered: 02/28/2023 Beta 2 glycoprotein 1 IgA Ab [Presence] in Serum [facility] Beta 2 glycoprotein 1 IgG Ab [Presence] in Serum [facility] Beta 2 glycoprotein 1 IgM Ab [Presence] in Serum [facility] Cardiolipin IgG Ab [Units/volume] in Serum or Plasma [facility] Cardiolipin IgM Ab [Units/volume] in Serum or Plasma [facility] F5 gene mutations fo und [Identifier] in Blood or Tissue by Molecular genetics method Nominal [facility] Lupus anticoagulant screening test [facility] Partial thromboplast in time ratio [facility] Patient Education ED URI, Viral, No Abx (Adult) [facility] Work Phone: Patient referral [facility] Work Phone: Protein C actual/nor mal in Platelet poor plasma by Chromogenic method [facility] Protein C Ag actual/normal in Platelet poor plasma by Immunoassay [facility] Protein S assay [facility] Protein S Free Ag actual/normal in Platelet poor plasma by Immunoassay [facility] Protein S, functiona l assay [facility] T4 free measurement [facility] Thrombin time [facility] Thyroid stimulating hormone measurement [facility] Immunizations Immunization Date Immunization Notes Care Provider Corina zamarripa 06-04-2024 influenza, seasonal, injectable Monicabrittny Gerard RETAIL SALES TEAMMATE.STOCK CONTROL CLERK Work Phone: [facility] 01-23-2024 tetanus toxoid, reduced diphtheria toxoid, and acellular pertussis vaccine, adsorbed Dr. Norman Kaplan DO Work Phone: [facility] 11-29-2022 measles, mumps and rubella virus vaccine Adam Carbajal RETAIL SALES TEAMMATE.STOCK CONTROL CLERK Work Phone: [facility] 05-21-2018 tetanus toxoid, reduced diphtheria toxoid, and acellular pertussis vaccine, adsorbed NA Collins PA-C Work Phone: [facility] Work Phone: 08-25-2016 influenza virus vaccine, unspecified formulation NA Collins PA-C Work Phone: [facility] Payers Date Payer Category Payer Unknown [phone] 2024 Self-pay [id number] 2022 Private Health Insurance [id number] 2021 Unknown CARL RAMIRES PPO [id number] 2021-Present [phone] [facility] [id number] [place] [address] PPO [id number]. [id number] 2019 Unknown [id number]. 1.13.159.2. [id number] 2010 Private Health Insurance [id number] .[id number]. [id number] 1989 Unknown [id number] 2.840.1.550247.3.579.2. 479 1989 Unknown [id number] 2.840.1.606642.3.579.2. 479 1989 Unknown [id number] 2.840.1.670487.3.579.2. 479 1989 Unknown [id number] .840.1.917815.3.579.2. 479 1989 Unknown [id number] .840.1.591112.3.579.2. 479 1989 Unknown [id number] 2.840.1.241654.3.579.2. 479 Private Health Insurance [id number] Unknown ANTHEM [id number] Unknown Jonny RAMIREZ [id number] Unknown [id number] Unknown [id number] 2840.1.957975.3.579.2. 462 Unknown [id number] 840.1.534705.3.579.2. 462 Unknown [id number] 840.1.807327.3.579.2. 462 Unknown [id number] 2.840.1.272136.3.579.2. 462 Unknown [id number] 2.840.1.875847.3.579.2. 462 Unknown [id number] 2.840.1.537992.3.579.2. 462 Unknown [id number] 2840.1.064883.3.579.2. 462 Unknown [id number] 2.16.840.1.130897.3.579.2. 462 Unknown [id number] 2.16.840.1.261465.3.579.2. 462 Unknown [id number] 2.16.840.1.591354.3.579.2. 462 Unknown [id number] 2.16.840.1.382035.3.579.2. 462 Unknown [id number] 2.16.840.1.829399.3.579.2. 462 Unknown [id number] 2.16.840.1.422870.3.579.2. 462 Unknown [id number] 2.16.840.1.526129.3.579.2. 462 Unknown [id number] 2.16.840.1.174560.3.579.2. 462 Unknown [id number] 2.16.840.1.660539.3.579.2. 462 Unknown [id number] 2.16.840.1.294415.3.579.2. 462 Unknown [id number] 2.16.840.1.299757.3.579.2. 462 Unknown [id number] 2.16.840.1.967302.3.579.2. 462 Unknown [id number] 2.16.840.1.593394.3.579.2. 462 Unknown [id number] 2.16840.1.759146.3.579.2. 462 Social History Date Type Detail Facility Start: 12-12-2011 End: 02-28-2023 Tobacco smoking status NHIS Never smoked tobacco [facility] Start: 12-12-2011 End: 02-28-2023 Tobacco use and exposure Smokeless tobacco non-user [facility] Start: 11-16-2021 End: 01-31-2025 Alcohol intake Current drinker of alcohol (finding) [facility] Start: 11-04-2019 End: 12-19-2022 History SDOH Alcohol Frequency 2 [facility] Start: 11-04-2019 End: 12-19-2022 History SDOH Alcohol Std Drinks 1 [facility] Start: 05-30-2018 History SDOH Alcohol Comment rarely [facility] Start: 11-04-2019 End: 12-19-2022 History SDOH Social Connections Phone 5 [facility] Start: 11-04-2019 End: 12-19-2022 History SDOH Social Connections Get Together 3 [facility] Start: 11-04-2019 End: 12-19-2022 History SDOH Financial 4 [facility] Start: 03-26-[address] [facility] Start: 1990 Sex Assigned At Female [facility] Start: 07-22-2020 End: 11-16-2021 Exposure to SARS-CoV-2 (event) Not sure [facility] Start: 02-14-2022 End: 08-15-2023 Tobacco smoking status NHIS Unknown if ever smoked [facility] Start: 12-19-2022 End: 06-02-2023 History of [address] function [facility] Start: 12-19-2022 End: 06-02-2023 Social connection and isolation panel [facility] Do you belong to any clubs or organizations such as druze groups, unions, fraternal or athletic groups, or school groups? Yes [facility] Are you now , , , , never or living with a partner? [facility] How often to you hav e a drink containing alcohol? 2-[address] [facility] How many standard dr inks containing alcohol do you have on a typical day? [address] [facility] How often do you hav e 6 or more drinks on 1 occasion? Never [facility] How hard is it for y ou to pay for the very basics like food, housing, medical care, and heating Not very hard [facility] Adult Depression Screening Assessment 2 [facility] Do you feel stress - tense, restless, nervous, or anxious, or unable to sleep at night because your mind is troubled all the time - these days [OSQ] To some extent [facility] (I/We) worried whekhai er (my/our) food would run out before (I/we) got money to buy more. Sometimes true [facility] The food that (I/we) bought just didn't last, and (I/we) didn't have money to get more. Never true [facility] In the past 12 month s, was there a time when you were not able to pay the mortgage or rent on time? No [facility] Start: 11-12-2021 Gender identity Identifies as female gender (finding) [facility] Start: 11-12-2021 Sexual orientation Heterosexual (finding) [facility] How often do you hav e 6 or more drinks on 1 occasion? Less than monthly [facility] Do you feel stress - tense, restless, nervous, or anxious, or unable to sleep at night because your mind is troubled all the time - these days [OSQ] Very much [facility] Start: 12-08-2024 Sex Female (finding) [facility] Mental Status Date Assessment Result Facility 12-08-2024 Cognitive function Level Of Cons ciousness Awake;Alert;Appropriate [facility] Work Phone: Clinical Notes 08-21-2020 to 01-31-2025 Adam Carbajal APRN.CNP - 01/31/2025 7:35 AM EDTTelephone Encounter - Cria Bradford LPN - 01/20/2025 1:22 PM EDTTelephone Encounter - Cira Bradford LPN - 01/20/2025 1:22 PM EDT Note Date & Type Note Facility 01-31-2025 Note HNO ID: [id number] Author: ADAM CARBAJAL APRN.CNP Service: ? Author [...] - ICD9: 074.3, ICD10: B08.4 Diagnosed with oqtw-hrke-ero-mouth disease. T (more content not included)... [facility] 01-31-2025 History of Presen t illness Narrative [...] - ICD9: 074.3, ICD10: B08.4 Diagnosed with jbju-jxjx-gnl-mouth disease. Treat as viral etiology. No evidence [...] of care. This note was generated using MedaPhor software. It may contain errors in wording, punctuation, or spelling. Adam Carbajal APRN.AIMEE documented in this encounter [facility] 01-20-2025 Telephone encounter Note Prescription Refill [...] Bradford LPN January 20, 2025 1:[address] [facility] 01-20-2025 Miscellaneous Notes Prescription Refill Information [...] 2025 1:26 PM documented in this encounter [facility] 12-08-2024 Radiology Diagnostic study note [facility] Imaging Services [address] [place], [place] [address] Chest PA and Lateral MR#: [id number] Acct: [id number] Name: MILDRED MICHEL Rep #: [id number] : 1990 F 34 From: Pet er Peer PCP: Care Physician,No Primary Status: REG ER Study:Chest PA and Lateral Date of Exam: 12/08/24 Exam# [id number] Ordering Dr: Norman Kaplan DO PROCEDURE: CHEST [...] of an acute cardiopulmonary process. Reading Location: [facility] CC: Dr. Norman Kaplan DO; No Primary Care Physician ~ Hydrogen Cell Tender: Signed [facility] 12-08-2024 Note HNO ID: [id number] Author: TEMITOPE NAVARRETE APRN.STOCK CONTROL CLERK Service: ? Author Type: Nurse Practitioner Type: [...] emergency room. Patient agreeable to care plan. [facility] 12-08-2024 History of Presen t illness Narrative [...] to care plan. documented in this encounter [facility] 10-08-2024 History of Presen t illness [...] PATIENT PRESENTS WITH AN IMPLANTABLE OR ATTACHED RETAIL SALES LEAD: No RADIOLOGY DEPARTMENT: General X-ray: Exam(s) Completed: Chest X-Ray PERIPHERAL IV DATA: Not applicable SIGNED BY: MODESTA Lafleur) October 08, 2024 10:30 AM documented in this encounter [facility] 10-08-2024 Note HNO ID: [id number] Author: MARE PERALES RT(R) Service: Radiology Author [...] PATIENT PRESENTS WITH AN IMPLANTABLE OR ATTACHED RETAIL SALES LEAD: No RADIOLOGY DEPARTMENT: General X-ray: Exam(s) Completed: Chest X-Ray PERIPHERAL IV DATA: Not applicable SIGNED BY: Mare Perales RT(R) October 08, 2024 10:30 AM [facility] 10-08-2024 Note HNO ID: [id number] Author: ANA CAMEJO APRN.STOCK CONTROL CLERK Service: ? Author Type: Nurse Practitioner Type: [...] Ana GOMEZ APRN.MOISE (more content not included)... [facility] 10-08-2024 History of Presen t illness Narrative [...] infiltrate Dictated by : MD Ana GOMEZ APRN.STOCK CONTROL CLERK documented in this encounter [facility] 10-04-2024 Telephone encounter Note Pt notified. Copy of form sent for scanning. Original placed in [facility] [employer] for pt waste picker. Cira Bradford LPN [facility] 10-04-2024 Miscellaneous Notes Pt notified. Copy of form sent for scanning. Original placed in [facility] Rec's for pt waste picker. Cira Bradford LPN Form complete. Monica Gerard APRN.AIMEE Forms are on provider desk awaiting further review. Cira Bradford LPN Patient calling for status update on FMLA forms that were dropped off in office on 09/27/24. Patient reports these are due by this weekend. Please contact patient to advise. documented in this encounter [facility] 10-04-2024 Telephone encounter Note Form complete. Monica Gerard APRN.AIMEE [facility] 10-04-2024 Telephone encounter Note Forms are on provider desk awaiting further review. Cira Bradford LPN [facility] 10-03-2024 Telephone encounter Note Patient calling for status update on FMLA forms that were dropped off in office on 09/27/24. Patient reports these are due by this weekend. Please contact patient to advise. [facility] 06-04-2024 Note HNO ID: [id number] Author: MONICA GERARD APRN.AIMEE Service: ? Author [...] ICD10: E03.9 Will be getting labs per SEWER LINE PHOTO INSPECTOR soon. Discussed treatment plan and patient voices understanding. Patient's questions answered appropriately. Medications and potential side effects were discussed and patient voices understanding. Return to the office as scheduled or as needed for worsening/no improvement. Monica Gerard APRN.STOCK CONTROL CLERK [facility] 06-04-2024 History of Presen t illness Narrative [...] ICD10: E03.9 Will be getting labs per [employer] LINE PHOTO INSPECTOR soon. Discussed treatment plan and patient voices understanding. Patient's questions answered appropriately. Medications and potential side effects were discussed and patient voices understanding. Return to the office as scheduled or as needed for worsening/no improvement. Monica Gerard APRN.STOCK CONTROL CLERK documented in this encounter [facility] 03-23-2024 Note [facility] Medical Records Department [address] [place] [id number] Discharge Summary 03/23/24 [facility] MR#: [id number] Acct: [id number] Name: MILDRED MICHEL Rep #: [id number] : 1990 33 From: Gudelia Dominguez DO PCP: KERRY Ruiz Status:ADM IN Location: [place] Providers Date of Admission: 03/20/24 Primary Care [...] offered social servi (more content not included)... [facility] 03-13-2024 Telephone encounter Note Patient calling for recommendation for symptoms of migraine headache x 4 days and feeling warm and shaky She was seen @ [facility] on 03/11 and says she was not treated due to being 38 weeks . She says she tried to call OB office today and is waiting for call back. While on phone with patient she received call back. She says OB advised ER evaluation and she is @ [facility] at this time. Violette Ngo RN [facility] 03-13-2024 Miscellaneous Notes Patient calling for recommendation for symptoms of migraine headache x 4 days and feeling warm and shaky She was seen @ [facility] on 03/11 and says she was not treated due to being 38 weeks . She says she tried to call OB office today and is waiting for call back. While on phone with patient she received call back. She says OB advised ER evaluation and she is @ [facility] at this time. Violette Ngo RN documented in this encounter [facility] 12-04-2023 Instructions Bushra Collins PA-C - 12/04/2023 1:23 PM EDT Wean of sertraline 3 weeks prior to 9th month: Alterate 100mg with 50mg daily x 1 week, then 50mg daily x 1 week, then 50mg every other day x 1 weeks, and then stop documented in this encounter [facility] 12-04-2023 History of Presen t illness [...] G47.00 [facility] 6. Adjustment reaction with [...] Bushra Collins PA-C documented in this encounter [facility] 08-11-2023 Miscellaneous Notes She has nausea and dry heaving. She has been seeing ob specialist and will now transfer to a regular OB. She has an appointment on 08/24/23. She is currently 7 weeks 1 day . She has been on prenatals for the past 3 years. She was given the provider's instructions and it was also sent via [employer]. Larissa Mckeon Ma Is she vomiting or [...] Dayanna Gallego RN\ documented in this encounter [facility] 07-21-2023 Miscellaneous Notes Spoke with patient. [...] Alicia Wells LPN documented in this encounter [facility] 04-09-2023 Instructions Zelda Hassan APRN.CNP - 04/09/2023 [...] inability to swallow. documented in this encounter [facility] 04-09-2023 History of Presen t illness Narrative Subjective The history is provided by the patient. No high school foreign language teacher was used. HPI Mildred Michel is a [...] have confirmed and edited as necessary, the [facility] Review of Systems Constitutional: Negative for [...] Zelda Hassan APRN.AIMEE documented in this encounter [facility] 03-01-2023 Miscellaneous Notes Called patient to discuss her urine culture. It revealed greater than 100,000 mixed microbiota. She states her symptoms are improved. Therefore, we will not treat at this time. Advised if symptoms return, follow-up with PCP for repeat urine culture. documented in this encounter [facility] 02-28-2023 Instructions Magy Stein APRN.CNP - 02/28/2023 7:56 AM EDT ASSESSMENT/PLAN: 1. Pelvic pressure in female - ICD9: 625.8, ICD10: R10.2 - UA DIP, URINE (POC)- normal in office. - URINE CULTURE - HCG QUAL UR B/O- negative in office. - potential causes include ovulation, ovarian cyst, new use of metformin. - Follow-up with your SEWER LINE PHOTO INSPECTOR in 3-5 days if symptoms have not improved or sooner if symptoms worsen - Discussed red flags and need for immediate medical evaluation if any occur. - Discussed supportive care treatment with fluids, rest and analgesia. - Discussed expected course of illness Magy Stein APRN.AIMEE documented in this encounter [facility] 02-28-2023 History of Presen t illness [...] use of metformin. - Follow-up with your SEWER LINE PHOTO INSPECTOR in 3-5 days if symptoms have not improved or sooner if symptoms worsen - Discussed red flags and need for immediate medical evaluation if any occur. - Discussed supportive care treatment with fluids, rest and analgesia. - Discussed expected course of illness Magy Stein APRN.AIMEE documented in this encounter [facility] 02-03-2023 Miscellaneous Notes Pt called and [...] in six weeks. documented in this encounter [facility] 12-19-2022 History of Presen t illness [...] visit. Either the patient or their legal construction representative has been informed of the risks [...] improved. Went back to work on Monday. [place] [place] over the weekend. Woke up this [...] Jony Lawson MD documented in this encounter [facility] 12-14-2022 Miscellaneous Notes Patient has been identified by name and date of : Yes Patient phones for refill(s): Requested Prescriptions Pending Prescriptions Disp Refills sertraline (ZOLOFT) 100 mg tablet 90 tablet 1 Sig: Take 1 tablet by mouth once daily. Date of last office visit in primary care: 11/16/2021 Please advise. Thank you. Daja Alfaro LPN documented in this encounter [facility] 04-25-2022 Miscellaneous Notes Patient notified that completed form is ready for waste picker at [facility]. Patient has been identified by name and date of : Yes Type of form: FMLA Form received via: Walk in When form is completed, notify by phone that form is ready for waste picker. Form has been forwarded to: Provider's desk. Provider name: Horacio Mckeon Ma documented in this encounter [facility] 01-13-2022 Instructions Zelda Hassan APRN.CNP - 01/13/2022 12:46 PM EDT Keflex as ordered Triamcinolone cream 2-3 times a day as needed for itching Benadryl 25 mg as needed for itching If worsening redness and streaking to ED for further management If no resolution in 2 weeks follow up with PCP documented in this encounter [facility] 01-13-2022 History of Presen t illness Narrative Images from the original note were not included. Subjective The history is provided by the patient. No high school foreign language teacher was used. JULIO Michel is a 31 [...] have confirmed and edited as necessary, the [facility] Review of Systems Constitutional: Negative for [...] Zelda Hassan APRN.AIMEE documented in this encounter [facility] 01-13-2022 Miscellaneous Notes Protocol recommends see [...] then. Protocols used: RASH OR REDNESS - [id number] documented in this encounter [facility] 12-09-2021 Miscellaneous Notes Follow up in 4-6 weeks office or virtual. The following approved medication requests have been transmitted electronically. Signed Prescriptions Disp Refills sertraline (ZOLOFT) 100 mg tablet 90 tablet 1 Sig: Take 1 tablet by mouth once daily. Bushra Collins PA-C See message from pt and advise. Jennifer Burns Ma documented in this encounter [facility] 08-21-2020 History of Presen t illness [...] 2020 2:29 PM documented in this encounter [facility] Evaluation note Diagnosis Rash- Primary Rash and other nonspecific skin eruption Redness of skin Unspecified erythematous condition [facility] noteNo assessment information [facility] Work [facility] note* Diagnosis Nausea- Primary Nausea alone Gastritis with hemorrhage, unspecified chronicity, unspecified gastritis type documented in this encounter [facility] note* Diagnosis Vitamin D deficiency- Primary Unspecified vitamin D deficiency documented in this encounter [facility] note* Diagnosis Pelvic pressure in female- Primary Other specified symptom associated with female genital organs documented in this encounter [facility] note* Diagnosis URI with cough and congestion- Primary Wheezing documented in this encounter [facility] note* Diagnosis Positive test- Primary examination or test, positive result documented in this encounter [facility] note* Diagnosis Onset Date Resolution Status Anovulation acute Asthma acute Bleeding in early acute Hypothyroidism acute Infertility acute Obesity affecting acute PCOS (polycystic ovarian syndrome) acute acute Supervision of high-risk acute Varicose vein of leg acute Vitamin D deficiency acute [facility] Work Phone: Evaluation note* Diagnosis [...] of leg acute Vitamin D deficiency acute [facility] Work Phone: Evaluation note* Diagnosis [...] vitamin D deficiency documented in this encounter [facility] note* Diagnosis Onset Date Resolution Status [...] high-risk acute Varicose vein of leg acute [facility] Work Phone: Evaluation note* Diagnosis Adjustment reaction with anxiety and depression- Primary Adjustment disorder with mixed anxiety and depressed mood Need for influenza vaccination Need for prophylactic vaccination and inoculation against influenza Gastritis with hemorrhage, unspecified chronicity, unspecified gastritis type Hypothyroidism, acquired Unspecified hypothyroidism documented in this encounter [facility] note* Diagnosis Hip pain Pain in joint, pelvic region and thigh documented in this encounter [facility] note* Diagnosis Community acquired pneumonia, unspecified laterality- Primary Acute cough documented in this encounter [facility] note* Diagnosis Headache, unspecified headache type- Primary Vomiting and diarrhea Vomiting alone documented in this encounter [facility] note* Diagnosis Adjustment reaction with anxiety and depression Adjustment disorder with mixed anxiety and depressed mood documented in this encounter [facility] note* Diagnosis Hand foot and mouth disease- Primary documented in this encounter [facility] for referral (narrative)No reason for referral information [facility]: Chief Complaint and Reason [...] Will No July 25 10:11am Power of Rodeo Clown No July 25, 2019 10:11am Advance Directive Response Recorded Date/ Time Living Will No July 25 11:11am Power of Rodeo Clown No July 25, 2019 11:11am Advance Directive Response Recorded Date/ Time Living Will No December 08, 2024 12:31pm Do you have a Healthcare Power of Rodeo Clown? No December 08, 2024 12:31pm Summary Purpose Additional Source Comments Source Comments (unrecognize d section and content) In the event this informatio n is protected by the Federal Confidentiality of Alcohol and Drug Abuse Patient Records regulations: The Federal rules restrict any use of the information to criminally investigate or prosecute any alcohol or drug abuse patient.[facility] the event this information is protected by the Federal Confidentiality of Alcohol and Drug Abuse Patient Records regulations: The Federal rules restrict any use of the information to criminally investigate or prosecute any alcohol or drug abuse patient.[facility] Hospital[facility] the event this information is protected by the Federal Confidentiality of Alcohol and Drug Abuse Patient Records regulations: The Federal rules restrict any use of the information to criminally investigate or prosecute any alcohol or drug abuse patient.[facility] Hospital[facility] the event this information is protected by the Federal Confidentiality of Alcohol and Drug Abuse Patient Records regulations: The Federal rules restrict any use of the information to criminally investigate or prosecute any alcohol or drug abuse patient.[facility] HospitalIn the event this information is protected by the Federal Confidentiality of Alcohol and Drug Abuse Patient Records regulations: The Federal rules restrict any use of the information to criminally investigate or prosecute any alcohol or drug abuse patient.[facility] Hospital[facility] the event this information is protected by the Federal Confidentiality of Alcohol and Drug Abuse Patient Records regulations: The Federal rules restrict any use of the information to criminally investigate or prosecute any alcohol or drug abuse patient.[facility] HospitalIn the event this information is protected by the Federal Confidentiality of Alcohol and Drug Abuse Patient Records regulations: The Federal rules restrict any use of the information to criminally investigate or prosecute any alcohol or drug abuse patient.[facility] HospitalIn the event this information is protected by the Federal Confidentiality of Alcohol and Drug Abuse Patient Records regulations: The Federal rules restrict any use of the information to criminally investigate or prosecute any alcohol or drug abuse patient.[facility] HospitalIn the event this information is protected by the Federal Confidentiality of Alcohol and Drug Abuse Patient Records regulations: The Federal rules restrict any use of the information to criminally investigate or prosecute any alcohol or drug abuse patient.[facility] HospitalIn the event this information is protected by the Federal Confidentiality of Alcohol and Drug Abuse Patient Records regulations: The Federal rules restrict any use of the information to criminally investigate or prosecute any alcohol or drug abuse patient.[facility] Hospital[facility] the event this information is protected by the Federal Confidentiality of Alcohol and Drug Abuse Patient Records regulations: The Federal rules restrict any use of the information to criminally investigate or prosecute any alcohol or drug abuse patient.[facility] HospitalIn the event this information is protected by the Federal Confidentiality of Alcohol and Drug Abuse Patient Records regulations: The Federal rules restrict any use of the information to criminally investigate or prosecute any alcohol or drug abuse patient.[facility] HospitalIn the event this information is protected by the Federal Confidentiality of Alcohol and Drug Abuse Patient Records regulations: The Federal rules restrict any use of the information to criminally investigate or prosecute any alcohol or drug abuse patient.[facility] HospitalIn the event this information is protected by the Federal Confidentiality of Alcohol and Drug Abuse Patient Records regulations: The Federal rules restrict any use of the information to criminally investigate or prosecute any alcohol or drug abuse patient.[facility] HospitalIn the event this information is protected by the Federal Confidentiality of Alcohol and Drug Abuse Patient Records regulations: The Federal rules restrict any use of the information to criminally investigate or prosecute any alcohol or drug abuse patient.[facility] HospitalIn the event this information is protected by the Federal Confidentiality of Alcohol and Drug Abuse Patient Records regulations: The Federal rules restrict any use of the information to criminally investigate or prosecute any alcohol or drug abuse patient.[facility] HospitalIn the event this information is protected by the Federal Confidentiality of Alcohol and Drug Abuse Patient Records regulations: The Federal rules restrict any use of the information to criminally investigate or prosecute any alcohol or drug abuse patient.[facility] HospitalIn the event this information is protected by the Federal Confidentiality of Alcohol and Drug Abuse Patient Records regulations: The Federal rules restrict any use of the information to criminally investigate or prosecute any alcohol or drug abuse patient.[facility] HospitalIn the event this information is protected by the Federal Confidentiality of Alcohol and Drug Abuse Patient Records regulations: The Federal rules restrict any use of the information to criminally investigate or prosecute any alcohol or drug abuse patient.[facility] HospitalIn the event this information is protected by the Federal Confidentiality of Alcohol and Drug Abuse Patient Records regulations: The Federal rules restrict any use of the information to criminally investigate or prosecute any alcohol or drug abuse patient.[facility] HospitalIn the event this information is protected by the Federal Confidentiality of Alcohol and Drug Abuse Patient Records regulations: The Federal rules restrict any use of the information to criminally investigate or prosecute any alcohol or drug abuse patient.[facility] HospitalIn the event this information is protected by the Federal Confidentiality of Alcohol and Drug Abuse Patient Records regulations: The Federal rules restrict any use of the information to criminally investigate or prosecute any alcohol or drug abuse patient.[facility] Care Teams (unrecognized sec tion and content) Production Drilling Machine Operator Relationship Specialty Start Date End Date Bushra Collins PA-C [address] [place], [place] [address] PCP - General Family Practice 05/21/18 Production Drilling Machine Operator Relationship Specialty Start Date End Date Bushra Collins PA-C [address] [place], [place] [address] PCP - General Family Practice 05/21/18 Production Drilling Machine Operator Relationship Specialty Start Date End Date Bushra Collins PA-C [address] [place] [address] PCP - General Family Practice 05/21/18 Production Drilling Machine Operator Relationship Specialty Start Date End Date Bushra Collins PA-C [address] [place] [address] PCP - General Family Medicine 05/21/18 Production Drilling Machine Operator Relationship Specialty Start Date End Date Bushra Collins PA-C [address] [place] [address] PCP - General Family Medicine 05/21/18 Production Drilling Machine Operator Relationship Specialty Start Date End Date Bushra Collins PA-C [address] [place] [address] PCP - General Family Medicine 05/21/18 Production Drilling Machine Operator Relationship Specialty Start Date End Date Bushra Collins PA-C [address] [place] [address] PCP - General Family Medicine 05/21/18 Production Drilling Machine Operator Relationship Specialty Start Date End Date Bushra Collins PA-C [address] [place] [address] PCP - General Family Medicine 05/21/18 Production Drilling Machine Operator Relationship Specialty Start Date End Date Bushra Collins PA-C [address] [place] [address] PCP - General Family Medicine 05/21/18 Production Drilling Machine Operator Relationship Specialty Start Date End Date Bushra Collins PA-C [address] [place] [address] PCP - General Family Medicine 05/21/18 Production Drilling Machine Operator Relationship Specialty Start Date End Date Bushra Collins PA-C [address] [place] [address] PCP - General Family Medicine 05/21/18 Production Drilling Machine Operator Relationship Specialty Start Date End Date Bushra Collins PA-C [address] [place], [place] [id number] PCP - General Family Medicine 05/21/18 Team [...] CNM Attending Provider, Referring Pro vider Active Production Drilling Machine Operator Relationship Specialty Start Date End Date Bushra Collins PA-C [address] [place], [place] [address] PCP - General Family Medicine 05/21/18 Team Status: Inactive Member Role Status Dates KERRY Estrella Primary Care Provider, Referri ng Provider Active Albertina Wilkerson NP, SOFTWARE SALES EXECUTIVE-C Attending Provider Active Team Status: Inactive Member Role Status Dates KERRY Estrella Primary Care Provider, Referri ng Provider Active Dr. Carey Nassar MD Attending Provider Active Team Status: Inactive Member Role Status Dates KERRY Estrella Primary Care Provider Active Dr. Carey Nassar MD Attending Provider, Referr ing Provider Active Production Drilling Machine Operator Relationship Specialty Start Date End Date Bushra Collins PA-C [address] [place], [place] [address] PCP - General Family Medicine 05/21/18 Production Drilling Machine Operator Relationship Specialty Start Date End Date Bushra Collins PA-C [address] [place], [place] [address] PCP - General Family Medicine 05/21/18 Production Drilling Machine Operator Relationship Specialty Start Date End Date Bushra Collins PA-C [address] [place] [address] PCP - General Family Medicine 05/21/18 Production Drilling Machine Operator Relationship Specialty Start Date End Date Mark Collins PA-C PCP - General Family Medicine 05/21/18 Monica Gerard, RETAIL SALES TEAMMATE.STOCK CONTROL CLERK [address] [place] [address] Environmental Services Supervisor Family Medicine 08/09/24 Daja Preston RETAIL SALES TEAMMATE.STOCK CONTROL CLERK [address] [place] [address] Environmental Services Supervisor [facility] Medicine 08/09/24 Production Drilling Machine Operator Relationship Specialty Start Date End Date Monica Gerard, RETAIL SALES TEAMMATE.STOCK CONTROL CLERK [address] [place] [address] Environmental Services Supervisor Family Medicine 08/09/24 Daja Preston, RETAIL SALES TEAMMATE.STOCK CONTROL CLERK [address] [place] [address] Environmental Services Supervisor Family Medicine 08/09/24 Production Drilling Machine Operator Relationship Specialty Start Date End Date Monica Gerard, RETAIL SALES TEAMMATE.STOCK CONTROL CLERK [address] [place] [address] Environmental Services Supervisor Family Medicine 08/09/24 Daja Preston RETAIL SALES TEAMMATE.STOCK CONTROL CLERK [address] [place] [address] Environmental Services Supervisor Family Medicine 08/09/24 Team Status: Active Member Role Status Dates No Primary Care Physician Primary Care Provider Active Team Status: Inactive Member Role Status Dates Dr. Norman Kaplan DO Emergency Provider Active Start: December 08, 2024 End: December 08, 2024 No Primary Care Physician Primary Care Provider Active Start: December 08, 2024 End: December 08, 2024 Production Drilling Machine Operator Relationship Specialty Start Date End Date Monica Gerard, RETAIL SALES TEAMMATE.STOCK CONTROL CLERK [address] [place] [address] [facility] 08/09/24 Daja Preston, RETAIL SALES TEAMMATE.STOCK CONTROL CLERK [address] [place] [address] [facility] 08/09/24 Production Drilling Machine Operator Relationship Specialty Start Date End Date Monica Gerard, RETAIL SALES TEAMMATE.STOCK CONTROL CLERK [address] [facility], [place] [address] [facility] 08/09/24 Daja Preston, RETAIL SALES TEAMMATE.STOCK CONTROL CLERK [address] [place] [address] [facility] 08/09/24 Production Drilling Machine Operator Relationship Specialty Start Date End Date Monica Gerard, RETAIL SALES TEAMMATE.STOCK CONTROL CLERK [address] [place] [address] [facility] 08/09/24 Daja Preston, RETAIL SALES TEAMMATE.STOCK CONTROL CLERK [address] [place] [address] [facility] 08/09/24 Reason for Visit (unrecogniz ed [...] Procedures EST SAME DAY Bushra Collins PA-C [address] [place] [address] Magy Stein APRN.STOCK CONTROL CLERK [address] [place] [address] Referral ID Status Reason Start Date Expiration Date Visits Re quested Visits Authorized [id number] Closed 02/28/2023 09/03/2023 1 1 Reason Comments [...] 30 MIN 4C EST Bushra Collins PA-C [address] [place] [address] Bushra Collins PA-C [address] [place] [address] Referral ID Status Reason Start Date Expiration Date Visits Re quested Visits Authorized [id number] Closed 12/04/2023 09/03/2024 1 1 Reason Onset Date Comments 6 Month Exam Immunizations 06/04/2024 Flu vaccination Specialty Diagnoses / Procedures Referred By Contac t Referred To Contact Family Medicine / FAMILY MEDICINE Diagnoses Female infertility associated with anovulation 6 month follow up Procedures OFFICE/OUTPATIENT ESTABLISHED MOD MDM 30 MIN 4C EST Self Bushra Collins PA-C [address] [place] [address] Referral ID Status Reason Start Date Expiration Date Visits Re quested Visits Authorized [id number] Closed 06/04/2024 09/03/2024 1 1 Reason Comments [...] EST SAME DAY Pcp, RANGEL Garsia Jonathan, APRN.STOCK CONTROL CLERK [address] [place] [address] Referral ID Status Reason Start Date Expiration Date Visits Re quested Visits Authorized [id number] Closed 10/08/2024 09/03/2025 1 1 Specialty Diagnoses / Procedures Referred By Contac t Referred To Contact Radiology / [facility] Diagnoses Cough xr chest rm 1 Procedures RADIOLOGIC EXAM CHEST 2 VIEWS XR CHEST Ana Camejo APRN.STOCK CONTROL CLERK [address] [place] [address] [facility] [address] [place] [address] Referral ID Status Reason Start Date Expiration Date Visits Re quested Visits Authorized [id number] Closed 10/08/2024 09/03/2025 1 1 Reason Comments [...] section and content) DATE CREATED AUTHOR 03/20/2024 [facility] DATE CREATED AUTHOR AUTHOR'S ORGANIZ ATION 02/02/2025 [facility] DATE CREATED AUTHOR AUTHOR'S ORGANIZ ATION 02/26/2025 [facility] DATE CREATED AUTHOR AUTHOR'S ORGANIZ ATION 02/27/2025 [facility] FOR RECORDS PERTAINING TO PATIENTS WHO [...] BE BASED ON THE PRIMARY CLINICAL RECORDS. [facility]. provides no warranty or guarantee of the accuracy or completeness of information in this document.
[2025-03-01 00:02] VITALS: BMI 42.4
[2025-03-01 00:53] VITALS: BP 135/74; PULSE 81; RESP 15; TEMP 36.7; O2SAT 99
--- NOTE | 2025-03-01 01:05 | PCM.RX.CS ---
Consult Antibiotic Management Pharmacy has been consulted to manage selected antibiotic: Vancomycin Type of Intervention Type of Consult: New start Labs Labs: Sodium 139 mmol/L (133-145) 02/28/25 21:05 Potassium 4.3 mmol/L (3.3-5.1) 02/28/25 21:05 Chloride 105 mmol/L (98-108) 02/28/25 21:05 Carbon Dioxide 23.0 mmol/L (21.0-32.0) 02/28/25 21:05 Anion Gap 11 (5-15) 02/28/25 21:05 BUN 12 mg/dL (4-19) 02/28/25 21:05 Creatinine 0.82 mg/dL (0.70-1.20) 02/28/25 21:05 Est GFR (MDRD) Non-Af 96 (>60) 02/28/25 21:05 BUN/Creatinine Ratio 14.3 RATIO (10-20) 02/28/25 21:05 Glucose 91 mg/dL (70-99) 02/28/25 21:05 Dosing Weight Weight used for dosin.6 kg Estimated Creatinine Clearance Estimated Creatinine Clearance: 114.6 Goal Trough Goal Trough: 10-15 mcg/mL Pharmacy Plan for Drug Dosing Pharmacy Plan for Drug Dosing: Pharmacy Service will continue to monitor and adjust dosing as required. 1500MG GIVEN IN ER @ 2308. START 1750MG Q12H AND DRAW TROUGH PRIOR TO 4TH DOSE Follow-Up Labs Follow-Up Labs: Trough: Vancomycin Date/Time Labs Ordered Labs to be done on [date and time ordered]: 03/02 @ 1030
[2025-03-01] MEDS: hydrOXYzine PAM 25 MG Capsule PO (01:16)
[2025-03-01] MEDS: Sertraline 100 MG Tablet PO (01:17)
[2025-03-01] MEDS: 0.9% Normal Saline (1000mL) 1,000 ML 100 ML IV (01:18)
[2025-03-01 01:22] LABS: Procalcitonin 0.05 ng/mL (<=0.10)
[2025-03-01 05:37] VITALS: BMI 42.7
[2025-03-01 06:14] LABS: Absolute Lymphocyte Count 2.47 X10^3/uL (0.83-4.51); Absolute Neutrophil Count 3.2 X10^3/uL (2.0-7.7); Basophil# 0.04 X10^3/uL; Basophil% 0.6 % (0-1); Eosinophil# 0.33 X10^3/uL; Eosinophils% 5.1 % (0-5); Hematocrit 39.1 % (37-47); Lymphocyte # 2.47 X10^3/ul (0.83-4.51); Lymphocyte % 38.2 % (19-41); Mean Corp Hgb Conc 33.2 g/dL (32-36); Mean Corpuscular Hgb 28.6 pg (27.0-32.0); Mean Corpuscular Volume 85.9 fL (81-99); Mean Platelet Vol. 11.7 fl (6.2-12.0); Monocyte# 0.42 X10^3/uL; Monocyte% 6.5 % (0-10); NRBC Flagged by Analyzer 0 % (0-5); Neutrophil # 3.18 X10^3/uL (2.7-7.7); Neutrophil % 49.3 % (47-70); Platelet Count 200 K/mm3 (150-450); RBC Distribution Width CV 13.4 % (11.6-14.6); RBC Distribution Width SD 42.2 fl (35.1-43.9); Red Blood Count 4.55 M/mm3 (4.2-5.4); White Blood Count 6.5 K/mm3 (4.4-11.0)
[2025-03-01 06:44] LABS: ALB/GLOB Ratio 1.7 RATIO (0.9-2.4); AST(SGOT) 18 U/L (<=31); Alanine Aminotransfer ALT/SGPT 25 U/L (<=34); Albumin, Serum 3.6 g/dL (3.5-5.0); Alkaline Phosphatase 67 U/L (35-104); Anion Gap 10 (5-15); BUN 14 mg/dL (4-19); BUN/Creat Ratio 16.5 RATIO (10-20); Calcium,Total 8.9 mg/dL (7.6-11.0); Carbon Dioxide 22.6 mmol/L (21.0-32.0); Chloride 109 mmol/L (98-108); Creatinine, Serum 0.82 mg/dL (0.70-1.20); EST Glomerular Filtration Rate 96 (>60); Globulin 2.1 g/dL (2.2-4.2); Glucose 109 mg/dL (70-99); Potassium 4.1 mmol/L (3.3-5.1); Protein, Total 5.7 g/dL (5.9-8.4); Sodium Level 141 mmol/L (133-145); Total Bilirubin < 0.15 mg/dL (0.00-1.30)
[2025-03-01 07:12] VITALS: O2SAT 97
[2025-03-01 09:46] VITALS: BP 105/69; PULSE 82; RESP 18; TEMP 36.7; O2SAT 100
--- NOTE | 2025-03-01 10:19 | CASEMGMT ---
Chart reviewed. 6-Click score is 24. Pt has a PCP. No CM consult. Dr. Ledesma states no needs identified at this time. Cx pending. No ID consult at this time. CM remains available to follow as needed.
--- NOTE | 2025-03-01 10:41 | PCM.DC ---
Discharge Instructions Diet Discharge Diet: No restrictions DC O2, CPAP, BIPAP needs Home O2 Discharge instructions: No Dressing / Incision Discharge Activity: Return to Normal Activity Weight Bearing Status: Full weight bearing Follow Up Care Test Results: Test results from this visit will be discussed in further detail at your follow-up appointment, if applicable. Discharge Plan Admission Admit Date/Time: 02/28/25 22:47 Primary Reason for Your Visit: Cellulitis of the legs secondary to insect bites Attending Provider: Ghanshyam Stephens Primary Care Provider: Aparna Chavez Consulting Providers: Norma Byrnes Discharge Orders/Prescriptions Prescriptions: New cefdinir 300 mg capsule 300 mg PO BID Qty: 14 0RF doxycycline monohydrate 100 mg tablet 100 mg PO BID Qty: 14 0RF Continued sertraline [Zoloft] 100 mg tablet 100 mg PO DAILY PNV-DHA 27 mg iron-1 mg -300 mg capsule 1 cap PO DAILY albuterol sulfate 90 mcg/actuation HFA aerosol inhaler 2 puff inhalation Q6H PRN (Reason: asthma) cholecalciferol (vitamin D3) 50 mcg (2,000 unit) capsule 50 mcg PO QDAY mupirocin 2 % ointment 1 applic topical TID Discontinued sulfamethoxazole-trimethoprim 800-160 mg tablet 1 tab PO BID Referrals / Follow Up: Aparna Chavez, CONFERENCE COORDINATOR-C [Primary Care Provider] - See Referral Note (At next scheduled appointment time) Disposition Disposition (needs filled in before D/C Order can be placed): Home, Self Care
--- NOTE | 2025-03-01 10:50 | PCM.DC.SUM ---
Providers Date of Admission: 02/28/25 Date of Discharge: 03/01/25 Primary Care Physician: YOVANI Kam, [employer] Reason For Visit: BL LE BITE WOUNDS W/CELLULITIS Diagnosis Discharge Diagnosis (1) Cellulitis: Status: Acute Code(s): L03.90 - Cellulitis, unspecified Plan 1. Cellulitis of the legs #2 chronic depression Medications at Discharge Home Medications sertraline 100 mg tablet (Zoloft) 100 mg PO DAILY 02/14/22 albuterol sulfate 90 mcg/actuation aerosol inhaler 2 puff inhalation Q6H PRN asthma 08/15/23 multivitamin no.47-iron fum 27 mg-folate no.1 1 mg-dha 300 mg capsule (PNV-DHA) 1 cap PO DAILY 08/15/23 cholecalciferol (vitamin D3) 50 mcg (2,000 unit) capsule 50 mcg PO QDAY 05/10/24 mupirocin 2 % topical ointment 1 applic topical TID 02/28/25 cefdinir 300 mg capsule 300 mg PO BID #14 caps 03/01/25 doxycycline monohydrate 100 mg tablet 100 mg PO BID #14 tabs 03/01/25 Hospital Course Operations None Procedures None Summary of Care Provided Minutes Spent on Discharge: 31 Hospital Course: This 34-year-old white female was seen in the emergency room at [facility] with complaints of reddened areas over her legs, she had been seen at [facility] and [facility] and told that she had MRSA as indicated by examination of the areas, she was started on Bactrim 3 days prior and did not feel that she was improving. Labs including CBC and a CHEM panel are unremarkable, wound culture was obtained. Patient was admitted to [place] [id number] and placed on IV antibiotics, the following day he areas were improved somewhat and the patient was felt to be stable for discharge home. On 03/01/2025, patient was seen and examined: On examination she appeared in good health and spirits, she does not appear to be in any distress. Vital signs as documented. Skin warm and dry, there is some reddened areas noted over the patient's legs, these areas are only a centimeter in diameter or less.. Neck without JVD, thyroid appears normal, trachea is midline, neck is supple. Lungs clear, normal air movement was noted. Heart exam notable for regular rhythm, normal sounds and absence of murmurs, rubs or gallops. Abdomen unremarkable and without evidence of organomegaly, masses, or abdominal aortic enlargement, bowel sounds are present in all 4 quadrants, no abdominal tenderness was noted. Extremities nonedematous, no cyanosis was noted, no clubbing was noted. Neuro: Cranial nerves II through XII are grossly intact, no focal motor deficits were noted, sensation to light touch and pinprick is intact, motor exam 5/5 throughout. Psych: Patient is alert and oriented x3, she does not appear anxious or depressed, she does not appear agitated. Patient was discharged home in stable condition on 03/01/2025. Weight / BMI Weight Weight: 109.6 kg Body Mass Index (BMI) 42.7 ABG / Lab / Microbiology Data 03/01/25 05:08 03/01/25 05:08 Laboratory: Laboratory Results - last 24 hr 02/28/25 21:05: WBC 6.3, RBC 4.94, Hgb 14.5, Hct 42.1, MCV 85.2, MCH 29.4, MCHC 34.4, RDW Std Deviation 41.9, RDW Coeff of Ignacio 13.7, Plt Count 242, MPV 11.5, Immature Gran % (Auto) 0.300, Neut % (Auto) 44.1 L, Lymph % (Auto) 40.0, [place] % (Auto) 6.2, Eos % (Auto) 8.4 H, Baso % (Auto) 1.0, Absolute Neuts (auto) 2.8, Absolute Lymphs (auto) 2.51, Nucleated RBC % 0, ESR 8, Sodium 139, Potassium 4.3, Chloride 105, Carbon Dioxide 23.0, Anion Gap 11, BUN 12, Creatinine 0.82, Estim Creat Clear Calc 114.62, Est GFR (MDRD) Non-Af 96, BUN/Creatinine Ratio 14.3, Glucose 91, Calcium 8.9, C-React Prot Ext Range 11.00 H, Procalcitonin 0.05 02/28/25 21:23: S.aureus Protein A PCR POSITIVE H, MRSA (PCR) Negative 03/01/25 05:08: WBC 6.5, RBC 4.55, Hgb 13.0, Hct 39.1, MCV 85.9, MCH 28.6, MCHC 33.2, RDW Std Deviation 42.2, RDW Coeff of Ignacio 13.4, Plt Count 200, MPV 11.7, Immature Gran % (Auto) 0.300, Neut % (Auto) 49.3, Lymph % (Auto) 38.2, [place] % (Auto) 6.5, Eos % (Auto) 5.1 H, Baso % (Auto) 0.6, Absolute Neuts (auto) 3.2, Absolute Lymphs (auto) 2.47, Nucleated RBC % 0, Sodium 141, Potassium 4.1, Chloride 109 H, Carbon Dioxide 22.6, Anion Gap 10, BUN 14, Creatinine 0.82, Estim Creat Clear Calc 113.80, Est GFR (MDRD) Non-Af 96, BUN/Creatinine Ratio 16.5, Glucose 109 H, Calcium 8.9, Total Bilirubin < 0.15, AST 18, ALT 25, Alkaline Phosphatase 67, Total Protein 5.7 L, Albumin 3.6, Globulin 2.1 L, Albumin/Globulin Ratio 1.7 Microbiology: Microbiology 02/28/25 21:23 Bite - Ankle Gram Stain - Final 02/28/25 21:23 Bite - Ankle Wound Culture - Preliminary 02/28/25 20:59 Blood Culture (Wb) - Anticubital Left Blood Culture - Preliminary No growth in 48 hours. 02/28/25 21:05 Blood Culture (Wb) - Left Forearm Blood Culture - Preliminary No growth in 48 hours. D/C Instructions Discharge Diet: No restrictions Weight Bearing Status: Full weight bearing DC O2, CPAP, BIPAP Needs Home O2 Discharge instructions: No Meaningful Use Info Meaningful Use Meaningful Use Diagnoses (Choose all that apply): None applicable Ischemic Stroke Statin Dosing Therapy Reference: STATIN DOSE THERAPY REFERENCE: * Patients > 75 years receive moderate or high dose statin therapy. * Patients 75 years or YOUNGER should receive HIGH intensity statin dose unless contraindicated. You will be required to document reason for non-treatment if statin daily dose does not meet guidelines. HIGH DOSE STATIN THERAPY DAILY Atorvastatin > than or = to 40 mg Rosuvastatin > than or = to 20 mg Amlodipine + Atorvastatin > than or = to 2.5/40 mg Ezetimibe + Simvastatin 10/80 mg Simvastatin 80mg Discharge Plan Admission Admit Date/Time: 02/28/25 22:47 Primary Reason for Your Visit: Cellulitis of the legs secondary to insect bites Attending Provider: Ghanshyam Stephens Primary Care Provider: Aparna Chavez Consulting Providers: Norma Byrnes Discharge Orders/Prescriptions Prescriptions: New cefdinir 300 mg capsule 300 mg PO BID Qty: 14 0RF doxycycline monohydrate 100 mg tablet 100 mg PO BID Qty: 14 0RF Continued sertraline [Zoloft] 100 mg tablet 100 mg PO DAILY PNV-DHA 27 mg iron-1 mg -300 mg capsule 1 cap PO DAILY albuterol sulfate 90 mcg/actuation HFA aerosol inhaler 2 puff inhalation Q6H PRN (Reason: asthma) cholecalciferol (vitamin D3) 50 mcg (2,000 unit) capsule 50 mcg PO QDAY mupirocin 2 % ointment 1 applic topical TID Discontinued sulfamethoxazole-trimethoprim 800-160 mg tablet 1 tab PO BID Referrals / Follow Up: Aparna Chavez, [employer] [Primary Care Provider] - See Referral Note (At next scheduled appointment time) Disposition Disposition (needs filled in before D/C Order can be placed): Home, Self Care Charges/Coding Visit Charges Inpatient E&M: 02471 Disch Hosp >30min
== END 2025-03-01 11:10 | disposition home or self-care (01) | DRG 603 ==
LOC: ED 22:38 → MS3 23:31
PROVIDERS: Admitting Provider Family Medicine; Emergency Provider Emergency Medicine; Visit Provider Internal Medicine
DX: L03.115 Cellulitis of right lower limb (principal); Z68.41 Body mass index [BMI] 40.0-44.9, adult; E28.2 Polycystic ovarian syndrome; E66.01 Morbid (severe) obesity due to excess calories; F41.8 Other specified anxiety disorders; L03.116 Cellulitis of left lower limb; Z79.84 Long term (current) use of oral hypoglycemic drugs; Z79.899 Other long term (current) drug therapy
CPT/HCPCS: 36415; 80048; 80053; 84145; 85025; 85652; 86140; 87040; 87070; 87205; 87640; 99284; A4216

== ENCOUNTER → 2025-04-17 | Outpatient (CLI) | payer OTHER, SELFPAY | END | disposition home or self-care (01) | LOC: VSLAB 16:01 | DX: E03.9 Hypothyroidism, unspecified (principal) | CPT/HCPCS: 36415; 84443 ==

== ENCOUNTER 2025-05-17 15:35 | Emergency (ER) | payer OTHER, SELFPAY ==
[2025-05-17 15:36] VITALS: BP 131/87; PULSE 94; RESP 14; TEMP 36.8; O2SAT 100; BMI 41.3
--- NOTE | 2025-05-17 15:47 | EDS_ITS ---
HPI History of Present Illness Chief Complaint: Dizziness [facility] Medical History Asthma PCOS (polycystic ovarian syndrome) Family history of hearing loss at age younger than 7 years DVT (deep venous thrombosis) Superficial varicosities Headache Bleeding in early Seasonal allergies History of DVT of lower extremity Anovulation Depression with anxiety Home Medications ?Medication ?Instructions ?Recorded ?Last Taken ?Type sertraline 100 mg tablet (Zoloft) 100 mg PO DAILY 02/0203/19/24 20:00 History 100 mg albuterol sulfate 90 mcg/actuation 2 puff inhalation Q 6H PRN asthma 08/15/23 Unknown History aerosol inhaler multivitamin no.47-iron fum 27 1 cap PO DAILY pregnanc y 08/15/23 03/19/24 08:00 History mg-folate no.1 1 mg-dha 300 mg capsule (PNV-DHA) cholecalciferol (vitamin D3) 50 50 mcg PO QDAY 4 Unknown History mcg (2,000 unit) capsule mupirocin 2 % topical ointment 1 applic topical TID Unknown History cefdinir 300 mg capsule 300 mg PO BID #14 caps 03/01 Unknown Rx doxycycline monohydrate 100 mg 100 mg PO BID #14 tabs 03/01/25 Unknown Rx tablet prednisone 50 mg tablet 50 mg PO DAILY #5 tabs 05/17 Unknown Rx Allergy/AdvReac Type Severity Reaction Status Date / Time bacitracin (From Neosporin Allergy Intermediate Rash Verified 05/17/25 15:35 ([id number])) neomycin (From Neosporin Allergy Intermediate Rash Verified 05/17/25 15:35 ([id number])) polymyxin B (From Neosporin Allergy Intermediate Rash Verified 05/17/25 15:35 ([id number])) latex Allergy Rash Verified 05/17/25 15:35 banana AdvReac Nausea Verified 05/17/25 15:35 Family History Father Seizures Chiari malformation Lupus Sister PCOS (polycystic ovarian syndrome) Aunt PCOS (polycystic ovarian syndrome) Family history of recurrent miscarriage Mother Family history of recurrent miscarriage 2 miscarriges Surgical History History of surgery History of tonsillectomy and adenoidectomy Social History adopted: No household members: spouse number of children: 1 current occupational status: employed current occupation: [employer] pets and animals: Yes (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) pets and animals: cat(s) history of recent travel: Yes ([employer] at [place]) out of state: Yes out of country: No sexually active: Yes Smoking Status: Never smoker alcohol intake: current alcohol intake frequency: holidays/special occasions only details: not while substance use type: does not use diet: other well-balanced diet: daily or most days caffeine: Yes Type: coffee Number of servings: 1 eating out: 1-3 times/week during the past year weight has: decreased > 10 lbs what type of physical activity do you participate in: swimming frequency: 3-4 times per week song/zoroastrian: [employer] seatbelt use: always do you feel safe at home: Yes additional social history: - [employer] EXAM Physical Exam Const Vital Signs: 05/17/25 15:36 05/17/25 17:27 Temperature 98.2 F 98.2 F Temperature Source Oral Pulse Rate 94 94 Respiratory Rate 14 14 Blood Pressure 131/87 H 131/87 H Blood Pressure Mean 101 101 Pulse Ox 100 100 Oxygen Delivery Method Room Air MDM MDM MDM Narrative Medical decision making narrative: HISTORY OF PRESENT ILLNESS: Chief complaint: Dizziness 34-year-old female history of hypothyroidism, DVT, depression anxiety presents concern for dizziness for the last week. She states I have been extremely dizzy for about a week and I feel like there is fluid in my right ear. She further states she has been dizzy especially with rising from a seated position since Monday (05/14/2025). No recent falls or head trauma noted. Denies associated chest pain, shortness of breath, headache, abdominal pain. She does note associated nausea and vomiting. Notes multiple episodes of nausea and vomiting on Monday and that have since resolved after getting Zofran at urgent care. She denies focal weakness, numbness, loss of sensation, slurred speech or facial drooping. Denies any urinary complaint such as dysuria, teresa turia urgency or frequency. Notes she has not vomited for the last 24 hours. Denies any vaginal bleeding. Denies any other bleeding diathesis. REVIEW OF SYSTEMS: Pertinent positives: Dizziness, ear fullness Pertinent negatives: As per HPI PHYSICAL EXAM: Nursing triage notes reviewed, Vital signs reviewed Constitutional: please see [facility] HENT: MMM, right ear with obvious middle ear effusion but no hyperemia, ear bulging or other signs of inflammation, left TM wnl Eyes: Pupils equal round and reactive to light, Extraocular muscles intact Neck: No stridor, no JVD, full neck ROM Lungs: Clear to auscultation, No wheezing or rales. No increased work of breathing, no conversational dyspnea, no accessory muscle use, no nasal flaring. No respiratory distress noted Heart: Regular rate and rhythm, No murmurs, No rubs and No gallops, 2+ distal pulses (radial, femoral, posterior tibial) in all extremities Abdomen: Soft, there is no tenderness, rigidity, rebound or guarding, no obvious peritoneal signs, no palpable pulsatile abdominal masses, no auscultated abdominal bruit : No CVAT Extremities: No edema Neuro: Alert and oriented x3, neuro exam at baseline, cranial nerves II through XII are intact. No pain with extraocular muscle movement. There is negative test of skew. 5 of 5 strength in upper and lower extremities in flexion extension. Intact sensation to light touch in upper and lower extremity dermatomes. No truncal or extremity ataxia. No dysdiadochokinesia. Normal gait. 2+ reflexes in upper and lower extremities. No meningeal signs. Negative Babinski. NIH of 0. Negative [place]-Hallpike bilaterally. Skin: No rash or lesions noted MEDICAL DECISION MAKING: Chief Complaint: please see HPI External records reviewed: Reviewed prior imaging studies. Factors affecting care: As per [facility] Social determinants of health: none History obtained from others: none Consults: none [facility] Narrative: Patient was initially hemodynamically stable, afebrile and nontoxic-appearing. Exam without focal neurologic deficits. NIH was 0. Her [place]-Hallpike was also negative. I considered the following differential diagnosis: ICH, arrhythmia, anemia, electrolyte abnormality I obtained a broad lab and imaging workup to further determine if the patient was suffering from a life-threatening etiology. Initially treat the patient IV fluids, 0.25 mg of IV Versed, 25 mg of oral meclizine and 4 mg of IV Zofran. ALL IMAGES (IF OBTAINED) HAVE BEEN PERSONALLY REVIEWED AND INTERPRETED BY MYSELF. EKG with normal sinus rhythm rate 83, normal axis, normal intervals, no STEMI CBC with no leukocytosis, noted hemoconcentration suggestive of dehydration, no thrombocytopenia CMP without evidence of acute kidney injury, significant electrolyte abnormality, anion gap to suggest end organ hypo-perfusion, no evidence of metabolic acidosis with a normal bicarbonate, no evidence of hepatobiliary obstructive pathology. Urinalysis shows no evidence of urinary inflammation suggestive of UTI CT scan of the brain shows no evidence of ICH Repeat neurologic exam remained intact. The synthesis of the patient history, physical exam is consistent with likely labyrinthitis given middle ear effusion. Will give a short course of steroids and recommend [id number] anti- inflammatories. Will recommend close outpatient ENT follow-up for further evaluation. The patient and/or family, caregivers express understanding. The patient and/or family, caregivers agrees with the plan. Shared decision making: I will have a discussion with the patient and or visitors regarding risk/benefits of further testing or admission. They will be made aware of of the risk/benefits inherent in this decision they will be given the opportunity to voice understanding. Total critical care time today provided was at least 0 minutes. This excludes separately billable procedures. Critical care time (if documented) is secondary to the patient having high probability of clinically significant/life threatening deterioration in the patient's condition which required my urgent intervention. Impression: 1. Acute dizziness 2. Labyrinthitis Dispo: Discharge home This note was generated with Spireon dictation software. It may contain incorrect words, spelling, and punctuation that were not noted in review of the chart prior to signing. Lab Data Labs: Laboratory Results - last 24 hr 05/17/25 16:26 WBC 7.2 RBC 5.40 Hgb 16.3 H Hct 45.9 MCV 85.0 MCH 30.2 MCHC 35.5 RDW Std Deviation 38.0 RDW Coeff of Ignacio 12.4 Plt Count 249 MPV 11.3 Immature Gran % (Auto) 0.300 Neut % (Auto) 59.8 Lymph % (Auto) 28.7 [place]cock % (Auto) 6.4 Eos % (Auto) 4.1 Baso % (Auto) 0.7 Absolute Neuts (auto) 4.3 Absolute Lymphs (auto) 2.08 Nucleated RBC % 0 Sodium 140 Potassium 3.8 Chloride 105 Carbon Dioxide 24.0 Anion Gap 11 BUN 16 Creatinine 0.79 Estim Creat Clear Calc 115.78 Est GFR (MDRD) Non-Af 100 BUN/Creatinine Ratio 20.3 H Glucose 104 H Calcium 9.1 Total Bilirubin 0.24 AST 15 ALT 22 Alkaline Phosphatase 64 Total Protein 7.1 Albumin 4.2 Globulin 2.9 Albumin/Globulin Ratio 1.5 Urine Color Yellow Urine Clarity Sl. Cloudy Urine pH 6.0 Ur Specific [place] 1.015 Urine Protein 30 H Urine Glucose (UA) Normal Urine Ketones Negative Urine Occult Blood Negative Urine Nitrite Negative Urine Bilirubin Negative Urine Urobilinogen 1 H Ur Leukocyte Esterase 25 H Urine RBC 0-5 SEEN Urine WBC 0-5 SEEN Ur Squamous Epith Cells 5-10 SEEN Urine Bacteria RARE Urine Mucus 0 SEEN Radiography Diagnostic Testing: Clinical Impression(s) from Imaging Studies Brain CT 05/17/25 16:03 IMPRESSION: No intracranial hemorrhage. No mass effect or midline shift. Reading [facility] Discharge Plan Triage Chief Complaint: Dizziness ED Provider: Bobo Orr Dx/Rx/DC Orders Instructions: ED Labyrinthitis Prescriptions: New prednisone 50 mg tablet 50 mg PO DAILY Qty: 5 0RF No Action sertraline [Zoloft] 100 mg tablet 100 mg PO DAILY PNV-DHA 27 mg iron-1 mg -300 mg capsule 1 cap PO DAILY albuterol sulfate 90 mcg/actuation HFA aerosol inhaler 2 puff inhalation Q6H PRN (Reason: asthma) cholecalciferol (vitamin D3) 50 mcg (2,000 unit) capsule 50 mcg PO QDAY mupirocin 2 % ointment 1 applic topical TID cefdinir 300 mg capsule 300 mg PO BID Qty: 14 0RF doxycycline monohydrate 100 mg tablet 100 mg PO BID Qty: 14 0RF Primary Care Provider: Aparna Chavez [facility] [place] Referrals: Jered Kang MD [Med Staff - Active Staff] - Activity Restrictions/Additional Instructions: Thank you for trusting us with your care today! Your labs and images are reassuring. Specifically no sign of damage to your brain on CT scan. No sign of significant laboratory abnormalities either. No sign of urinary tract infection. Your EKG did not reveal any evidence of cardiovascular dysfunction to explain your dizziness. I suspect you are suffering from labyrinthitis. This is treated with steroids and anti- inflammatories including ibuprofen Please take Tylenol (2 pills, 650 mg), ibuprofen (2 pills, 400 mg) every 6 hours as needed for pain and fever control. Please take steroids as prescribed to decrease inner ear inflammation. Please return to the emergency department if your symptoms change or worsen. Please follow with your ENT (Dr. Kang) for further outpatient evaluation and management. Print Language: Tamazight Disposition Disposition: Home, Self Care Discharge Date/Time: 05/17/25 17:35
--- NOTE | 2025-05-17 16:03 | CT_ITS ---
PROCEDURE: BRAIN/HEAD WITHOUT CONTRAST 05/17/2025 REASON FOR EXAM: DIZZINESS TECHNIQUE: Procedure Code: CTBR Modality: CT Procedure: BRAIN/HEAD WITHOUT CONTRAST Coronal and Sagittal reconstruction series were provided. One or more dose reduction techniques were used (e.g., Automated exposure control, adjustment of the mA and/or kV according to patient size, use of iterative reconstruction technique. COMPARISON: None available. FINDINGS: There is no extra-axial or intra-axial intracranial hemorrhage. No mass effect or midline shift is seen. The ventricles, sulci, and cisterns are normal in size and shape for the patient's age. There is normal ramirez-white matter differentiation. The posterior fossa is grossly unremarkable. The skull is unremarkable. Visualized paranasal sinuses are clear. The mastoid air cells show normal translucency. CT/Brain/Head without Contrast IMPRESSION: No intracranial hemorrhage. No mass effect or midline shift. Reading Location[facility]
--- NOTE | 2025-05-17 16:03 | EKG12_ITS ---
Test Reason : DIZZY Blood Pressure : */* mmHG Vent. Rate : 83 BPM Atrial Rate : 83 BPM P-R Int : 150 ms QRS Dur : 92 ms QT Int : 394 ms P-R-T Axes : 47 67 37 degrees QTcB Int : 462 ms Normal sinus rhythm Normal ECG Confirmed by Alireza Sesay ([id number]), editor greeting card MONY MUNOZ ([id number]) on 05/19/2025 1:20:49 PM Referred By: Confirmed By: Alireza Sesay
--- OUTSIDE RECORDS SUMMARY | 2025-05-17 16:10 | XMS RPT_ITS | CCD ---
Author Organization [facility] Care Team Providers Care Aircraft Shipping Checker Name Role Phone Estrada Collins PA-C Primary Care Provider [phone] KERRY Russell Primary Care Provider [phone] KERRY Russell Referring Provider CARA King Attending Provider [phone] Estrada Collins PA-C Primary Care Provider KERRY Russell Primary Care Provider KERRY Russell Referring Provider CARA King Attending Provider Rock FERTILIZER MIXER, GIBSON-C Albertina Attending Provider [phone] Dr. Carey Nassar Attending Provider [phone] Estrada Collins PA-C Primary Care Provider NO PRIMARY [...] Collins PA-C Primary Care Provider Unavailable Haagen MEDICAL BILLING SUPERVISOR.FAMILY SERVICES SPECIALIST, Monica Unavailable Suppan MEDICAL BILLING SUPERVISOR.FAMILY SERVICES SPECIALIST, Daja A Unavailable Dr. Norman Kaplan DO Emergency Provider Care Physician, No Primary Primary Care Provider Unavailable Eusebio MONROE, Dr. Austin Attending Provider Beam FERTILIZER MIXER-C, Zebulun Primary Care Provider Beam FERTILIZER MIXER-C, Zebulun Attending Provider Dr. Mary Stoll DO Emergency Provider Fitz ONOFRE, Dr. Norma Regan Attending Provider Fitz ONOFRE, Dr. Norma Regan Admit Provider Fitz ONOFRE, Dr. Norma Regan Other Provider Kat MONROE, Dr. Morrissey Attending Provider Kat MONROE, Dr. Morrissey Other Provider Care Physician, No Primary Primary Care Unava ilable Norman Kaplan Attending Unavailable Norma Byrnes Admitting Unavailable Norma Byrnes L Consulting Unavailable Mark Stephens Attending Unavailable Beam, Zebulun Primary Care Unavailable Norma Byrnes L Consulting Unavailable Beam, Zebulun Primary Care Unavailable Mark Stephens Attending Unavailable Fitz Norma L Admitting Unavailable Mark Stephens Consulting Unavailable Fitz Norma L Attending Unavailable Beam, Zebulun Primary Care Unavailable Estrada Russell Primary Care Unavailable Estrada Russell Referring Unavailable Gudelia Dominguez Attending Unavailabl e Beam, Zebulun Primary Care Unavailable Beam, Zebulun Attending Unavailable Beam, Zebulun Primary Care Unavailable Beam, Zebulun Attending Unavailable Beam, Zebulun Primary Care Unavailable Beam, Zebulun Attending Unavailable Beam FERTILIZER MIXER, Zebulun Primary Care Provider ANA CAMEJO Referring Unavailable SELF Referring Unavailable MARK COLLINS Primary Care Unavailable MONICA GERARD Attending Unavailable ADIEL HERNÁNDEZ Attending Unavailable BEAM, ZEBULUN Primary Care Unavailable ADAM CARBAJAL Attending Unavailable Allergies Allergy Classification Reported Allergen(s) Allergy Type Date of Onset Reaction(s) Facility (20 sources) Banana Extract; Translations: [BANANA] Drug Allergy 05-19-2016 GI Upset [facility] Work Phone: (20 sources) Latex; Translations: [LATEX] Drug Allergy 05-19-[address] [facility] Work Phone: (15 sources) Bacitracin; Translations: [BACITRACIN] Drug Allergy 02-14-2022 [facility] (15 sources) Neomycin; Translations: [NEOMYCIN] Drug Allergy 02-14-2022 [facility] (15 sources) Polymyxin B; Translations: [POLYMYXIN B] Drug Allergy 02-14-2022 [facility] (1 source) Bacitracin Drug Allergy 02-28-2025 [facility] (1 source) Banana Extract Drug Allergy 02-28-2025 [facility] (1 source) Latex Drug allergy (disorder) 02-28-2025 [facility] (1 source) Neomycin Drug Allergy 02-28-2025 [facility] (1 source) polymyxin B Drug allergy (disorder) 02-28-2025 [facility] Medications Current Medications Medication Drug Class(es) Dates Sig (Normalized) Sig (Original) [id number] 200 actuat albuterol 0.09 mg/actuat metered dose [...] m outh three times daily as needed. cefdinir 300 mg oral capsule (4 sources) Cephalosporin Antibacterial Start: 5 take 1 capsule by mouth twice daily Cefdinir 300 mg capsule Active 300 mg PO TWICE A DAY 14 March 01, 2025 12:00am cephalexin 500 mg oral capsule (12 sources) Cephalosporin Antibacterial Start: 2 End: 2 take 1 capsule by mouth four times daily cephALEXin (KEFLEX) 500 mg capsule Take 1 capsule by mouth four times daily for 5 days. 20 capsule 0 01/13/2022 01/18/2022 Active Start: 07-24-2019 End: 01-21-2021 take 1 capsule by mouth every twelve hours Cephalexin 500 MG capsule Discontinued 500 mg PO EVERY 12 HOURS 14 July 24, 2019 1:00am January 21, 2021 2:06pm Comment on above: Take 1 capsule by mo uth four times daily for 5 days. cholecalciferol 0.05 mg oral capsule (6 sources) Vitamin D Start: 05-10-20 24 take 1 capsule by mouth once daily Cholecalciferol (Vitamin D3) 50 mcg (2,000 unit) capsule Active 50 ug PO daily May 10, 2024 12:00am doxycycline monohydrate 100 mg oral tablet (4 sources) Tetracycline-class Drug Start: 03-01-20 25 take 1 tablet by mouth twice daily Doxycycline Monohydrate 100 mg tablet Active 100 mg PO TWICE A DAY 14 March 01, 2025 12:00am ergocalciferol 1.25 mg oral capsule (16 sources) Provitamin D2 Compound Start: 06-02-20 23 take 1 capsule by mouth every week ergocalciferol 50,000 unit capsule (VITAMIN D2, DRISDOL) Indications: Vitamin D deficiency , Elevated PTHrP level Take 1 capsule by mouth one time a week. 12 capsule 3 06/02/2023 Active Start: 02-03-2023 take 1 capsule by mo ut every week ergocalciferol 50,000 unit capsule (VITAMIN [...] on above: Take 2 tablets by mo ut twice daily. Multivit 18-Kagp-Syuihl 1-Dha (Pnv-Dha) 27 mg iron-1 mg -300 mg capsule (10 sources) Start: 08-15-2023 Multivit 77-Lfbv-Oyhwwq 1-Dha (Pnv-Dha) 27 mg iron-1 mg -300 [...] Active CAP PO August 15, 2023 12:00am mupirocin 0.02 mg/mg topical ointment (5 sources) RNA Synthetase Inhibitor Antibacterial Start: 02-28-2025 Mupirocin 2 % ointment Active 1 NMA TOPICAL THREE TIMES A DAY February 28, 2025 12:00am omeprazole 20 mg delayed release oral capsule (18 sources) Proton Pump Inhibitor Start: 12-19-2022 End: 06-04-2024 take 1 capsule by mouth once daily before breakfast as needed omeprazole (PRILOSEC) 20 mg capsule Indications: Gastritis with hemorrhage, unspecified chronicity, unspecified gastritis type Take 1 capsule by mouth daily before breakfast. 1/2 hr before meal. As needed 30 capsule 06/04/2024 Active Comment on above: Take 1 capsule by [facility] daily before breakfast. 1/2 hr before meal. ondansetron 4 mg disintegrating oral tablet (9 sources) Serotonin-3 Receptor Antagonist Start: 05-14-2025 take 1 tablet by mouth every eight hours as needed for nausea ondansetron orally disintegrating (ZOFRAN ODT) 4 mg disintegrating tablet Indications: Nausea and vomiting, unspecified vomiting type , Viral illness Take 1 tablet by mouth every 8 hours as needed for nausea/vomiting. 30 tablet 05/14/2025 Active Start: 09-19-2023 End: 03-20-2024 take 1 tablet by mouth every six hours Ondansetron 4 mg tablet,disintegrating Discontinued 4 mg PO EVERY 6 HOURS 90 3 September 19, 2023 1:00am March 20, 2024 10:52am Nausea and vomiting during Vomiting of , unspecified predniSONE 20 mg oral tablet (1 source) Start: 04-09-2023 End: 04-14-2023 take 2 tablets by mouth once daily predniSONE (DELTASONE) 20 mg tablet Indications: URI with cough and congestion Take 2 tablets by mouth once daily for 5 days. 10 tablet 0 04/09/2023 04/14/2023 Active Comment on above: Take 2 tablets by mo [facility] once daily for 5 days. 25/iron fum/folic/dha [...] Comment on above: Take 1 tablet by [facility] once daily. triamcinolone acetonide 1 mg/ml [...] / HYDROcodone bitartrate 5 mg oral tablet (11 sources) Opioid Agonist Start: 07-24-2019 End: 08-01-2019 Hydrocodone-Acetami nophen 1 TABLET tablet Discontinued 1 {tbl} PO EVERY 6 HOURS NEEDED as needed for Pain 10 3 0 July 24, 2019 July 26, 2019 1:00am August 01, 2019 1:08am Contusion of chest wall Contusion of unspecified front wall of thorax, initial encounter Start: 07-24-2019 End: 08-01-2019 take 1 tablet by mouth every six hours as needed Hydrocodone-Acetaminophen Discontinued 1 TABLET PO EVERY 6 HOURS NEEDED 10 3 July 24, 2019 August 01, 2019 1:08am acetaminophen 325 mg / oxyCODONE hydrochloride 5 mg oral tablet (6 sources) Opioid Agonist Start: 03-23-2024 End: 04-10-2024 take 1-2 tablets by mouth every four hours as needed for pain Oxycodone-Acetaminophen (Percocet) 5-325 mg tablet Discontinued 1 {tbl} PO Q4H as needed for pain 20 7 0 March 23, 2024 April 10, 2024 10:58am Status post delivery History of uterine scar from previous surgery 1-2 tabs q 4 hrs as needed for pain Desogestrel-Ethiny l Estradiol (11 sources) Progestin, Estrogen Start: 07-23-2019 End: 01-21-2021 [...] 23, 2019 12:00am January 21, 2021 1:06pm 0.4 ml enoxaparin sodium 100 mg/ml prefilled syringe (6 sources) Low Molecular Weight Heparin Start: 03-23-2024 End: 02-28-2025 Enoxaparin (Lovenox) 40 mg/0.4 mL syringe Discontinued 60 mg SC Q24H 25.2 42 0 March 23, 2024 12:00am February 28, 2025 11:13pm Ethinyl Estradiol / norgestimate (1 source) Progestin, [...] for itching/rash. ibuprofen 800 mg oral tablet (6 sources) Nonsteroidal Anti-inflammatory Drug Start: 03-23-20 End: 05-10-20 take 1 tablet by mouth every eight hours as needed for pain Ibuprofen 800 mg tablet Discontinued 800 mg PO Q8H as needed for pain 30 0 March 23, 2024 12:00am May 10, 2024 11:28am letrozole 2.5 mg oral tablet (11 sources) Aromatase Inhibitor Start: 02-15-20 End: 08-15-20 take 1 tablet by mouth once daily Letrozole 2.5 mg tablet Discontinued 2.5 mg PO DAILY 5 0 February 14, 2022 12:00am August 15, 2023 11:32am Take cycle days 3-7 levothyroxine sodium 0.05 mg oral tablet (20 sources) l-Thyroxine Start: 08-15-20 End: 12-09-19 take 1 tablet by mouth once daily Levothyroxine (Synthroid) 50 mcg tablet Discontinued 50 ug PO DAILY 30 0 January 09, 2024 4:38pm December 08, 2024 1:23pm Start: 02-17-2023 take 1 tablet by lairssa th once daily in the morning levothyroxine [...] mg tablet Discontinued 10 mg PO daily 10 10 6 June 17, 2022 2:56pm August 15, 2023 11:31am cycle day 30 if no menses and negative test Start: 01-21-2021 End: 06-04-2024 take 1 tablet by mouth once daily Medroxyprogesterone (Provera) 10 mg tablet Discontinued 10 mg PO DAILY 10 3 September 22, 2021 12:15pm February 14, 2022 8:05am Comment on above: Take 10 mg by mouth once daily. metFORMIN hydrochloride 500 mg oral tablet (20 sources) Biguanide Start: 3 End: 5 take 1 tablet by mouth once daily Metformin 500 mg tablet Discontinued 500 mg PO DAILY August 15, 2023 1:00am February 28, 2025 11:13pm Start: 08-15-2023 take 500 mg by mouth three times daily Metformin Active 500 MG PO THREE TIMES A DAY August 15, 2023 1:00am Start: 02-27-2023 take 1 tablet by larissa th once daily at breakfast metFORMIN ER (GLUCOPHAGE XR) 500 mg 24 hr tablet Take 500 mg by mouth daily with breakfast. 02/27/2023 Active Comment on above: TAKE 1 TABLET BY LARISSA TH ONCE DAILY after dinner for 1 week, then 1 tablet after breakfast and 1 tablet after dinner for 1 week then 1 tablet after breakfast and 2 tablets after dinner methylPREDNISolone (1 source) Corticosteroid Start: 08-21-20 End: 08-27-20 methylPREDNISolone (MEDROL, MONICA,) 4 mg Dose-Pack Follow dosing instructions, take with food. 1 Package 08/21/2020 08/27/2020 miSOPROStol 0.2 mg oral tablet (1 source) Prostaglandin E1 Analog Start: 08-13-20 End: 01-30-20 miSOPROStol (CYTOTEC) 200 mcg tablet Indications: Menorrhagia with regular cycle Insert 2 tables vaginally night prior to procedure and 2 tablets morning of procedure. 4 tablet 08/13/2019 01/29/2021 Discontinued (Course of therapy completed) PARoxetine hydrochloride 20 mg oral tablet (12 sources) Serotonin Reuptake Inhibitor Start: 07-23-20 End: 02-15-20 Paroxetine Hcl 20 MG tablet Discontinued 1 [...] Block E-Cancel) rivaroxaban 20 mg oral tablet (11 sources) Factor Xa Inhibitor Start: 08-05-2019 End: 01-21-2021 Rivaroxaban 15 mg (42)- 20 mg (9) tablets,dose pack Discontinued {tbl} PO 51 0 August 05, 2019 1:00am January 21, 2021 2:06pm Start: 08-05-2019 End: 01-21-2021 Rivaroxaban Discontinued TAB LET PO August 05, 2019 1:00am January 21, 2021 2:06pm Start: 08-05-2019 End: 01-21-2021 Rivaroxaban Discontinued TAB LET PO August 05, 2019 12:00am January 21, 2021 1:06pm sulfamethoxazole 800 mg / trimethoprim 160 mg oral tablet (5 sources) Dihydrofolate Reductase Inhibitor Antibacterial, Sulfonamide Antimicrobial Start: 02-28-2025 End: 03-01-2025 Sulfamethoxazole-Trimethopri m 800-160 mg tablet Discontinued 1 {tbl} PO TWICE A DAY February 28, 2025 12:00am March 01, 2025 10:47am Problems Active Problems Problem Classification Problem Date Documented Da te Episodic/Chronic Abdominal pain (1 source) Female genital organ symptoms; Translations: [Pelvic and perineal pain] Episodic Adjustment disorders (20 sources) Adjustment disorder with mixed anxiety and depressed mood; Translations: [Adjustment disorder with mixed anxiety and depressed mood] Onset: 06-08-2016 06-08-2016 Chronic Anxiety disorders (20 sources) Generalized anxiety disorder; Translations: [Generalized anxiety disorder] Onset: 09-04-2015 06-19-2019 Chronic Comment on above: zoloft-stable Asthma (16 sources) Asthma; Translations: [Unspecified asthma, uncomplicated] 08-15-2023 Chronic Female infertility (20 sources) Anovulation; Translations: [Female infertility associated with anovulation] Onset: 06-02-2023 06-02-2023 Chronic Comment on above: provera challenge, l etrozole, day 21 progesterone;confirm ovulation, SA out of range count & morphology, refer to [facility] Headache; including migraine (13 sources) Headache; Translations: [Headache] 03-11-2024 Episodic Hemorrhage during ; abruptio placenta; placenta previa (15 sources) Antepartum hemorrhage; Translations: [Hemorrhage in early , unspecified] 08-15-2023 Episodic Comment on above: resolved Menstrual disorders (5 sources) Irregular periods; Translations: [Irregular menstruation, unspecified] 01-21-2021 Chronic Nausea and vomiting (10 sources) Nausea; Translations: [Nausea] Onset: 05-14-2025 Episodic Nutritional deficiencies (20 sources) Vitamin D deficiency; Translations: [Vitamin D deficiency, unspecified] Onset: 02-03-2023 Chronic Other complications of ; puerperium affecting management of mother (9 sources) Anomaly of kidney; 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 gr owth us q 4 weeks-[facility] Other complications of (3 sources) Maternal obesity complicating , childbirth and the puerperium, antepartum; Translations: [Obesity complicating , unspecified trimester] 08-24-2023 Chronic Other complications of (8 sources) Obesity complicating , unspecified trimester; Translations: [Obesity complicating , childbirth, or the puerperium, unspecified as to episode of care or not applicable] 08-24-2023 Chronic Other complications of (10 sources) High risk ; Translations: [Supervision of high risk , unspecified, unspecified trimester] 08-15-2023 Episodic Comment on above: PRR , DICK 4, surprise Manjinder, father passed- 03/20. Other complications of (8 sources) Supervision of high risk , unspecified, unspecified trimester; Translations: [Supervision of unspecified high-risk ] 08-24-2023 Episodic Other complications of (2 sources) Nausea and vomiting; Translations: [Vomiting of , unspecified] 09-19-2023 Episodic Other complications of (9 sources) Vomiting of , unspecified; Translations: [Unspecified vomiting of , unspecified as to episode of care or not applicable] 09-19-2023 Episodic Other endocrine disorders (20 sources) Polycystic ovary syndrome; Translations: [Polycystic ovarian syndrome] Onset: 06-02-2023 06-02-2023 Chronic Comment on above: on metformin Other endocrine disorders (7 sources) Polycystic ovarian syndrome; Translations: [Polycystic ovaries] 08-24-2023 Chronic Other inflammatory condition of skin (1 source) Erythema; Translations: [Erythematous condition, unspecified] Episodic Other lower respiratory disease (1 source) Wheezing; Translations: [Wheezing] 04-09-2023 Episodic Other lower respiratory disease (1 source) Cough; Translations: [Acute cough] 10-08-2024 Episodic Other nervous system disorders (6 sources) H/O: migraine; Translations: [Personal history of other diseases of the nervous system and sense organs] 03-21-2024 Episodic Other nutritional; endocrine; and metabolic disorders (20 sources) Body mass index 40+ - severely obese; Translations: [Morbid (severe) obesity due to excess calories] Onset: 06-19-2019 06-19-2019 Chronic Other nutritional; endocrine; and metabolic disorders (11 sources) Obesity; Translations: [Obesity, unspecified] 02-14-2022 Chronic Other nutritional; endocrine; and metabolic disorders (2 sources) Obesity, unspecified; Translations: [Obesity, unspecified] 09-19-2023 Chronic Other screening for suspected conditions (not mental disorders or infectious disease) (2 sources) Abnormal results of thyroid function studies; Translations: [Encounter for screening for cardiovascular disorders] Onset: 03-03-2025 Episodic Other skin disorders (1 source) Eruption; Translations: [Rash and other nonspecific skin eruption] Episodic Phlebitis; thrombophlebitis and thromboembolism (9 sources) H/O: Deep vein thrombosis; Translations: [Personal history of other venous thrombosis and embolism] 11-16-2023 Episodic Comment on above: related to accident recovery/decreased mobility, ordered thrombophilia panel- negative. discussed possible IOL 39-40.plan post prophylactic anticoagulation for 6 weeks Pneumonia (except that caused by tuberculosis or sexually transmitted disease) (1 source) Community acquired pneumonia; Translations: [Pneumonia, unspecified organism] 10-08-2024 Episodic Residual codes; unclassified (6 sources) Gestation period, 38 weeks; Translations: [38 weeks gestation of ] 03-21-2024 Episodic Residual codes; unclassified (6 sources) Infertile 10-16-2023 Episodic Comment on above: [facility] pt/clomid Skin and subcutaneous tissue infections (12 sources) Cellulitis; Translations: [Cellulitis, unspecified] Onset: 03-03-2025 02-28-2025 Episodic Thyroid disorders (20 sources) Hypothyroidism; Translations: [Hypothyroidism, unspecified] Onset: 06-04-2024 08-24-2023 Chronic Comment on above: thyroid labs q trime ster Unclassified (12 sources) Infertile; Translations: [Infertility] 08-15-2023 Unclassified (4 sources) At next scheduled appointment time Unclassified (1 source) Rash Onset: 01-31-2025 Varicose veins of lower extremity (17 sources) Varicose veins of lower extremity; Translations: [Asymptomatic varicose veins of unspecified lower extremity] 08-15-2023 Episodic Comment on above: Right leg above knee Viral infection (3 sources) Enteroviral vesicular stomatitis with exanthem; Translations: [Enteroviral vesicular stomatitis with exanthem] Onset: 05-14-2025 01-31-2025 Episodic Past or Other Problems Problem Classification Problem Date Documented Da te Episodic/Chronic Gastritis and duodenitis (3 sources) Acute hemorrhagic gastritis; Translations: [Gastritis, unspecified, with bleeding] Onset: 06-04-2024 Episodic Immunizations and screening for infectious disease (2 sources) Needs influenza immunization; Translations: [Encounter for immunization] Onset: 06-04-2024 06-04-2024 Episodic Other non-traumatic joint disorders (20 sources) Pain in left knee; Translations: [Pain in joint, lower leg] Onset: 08-26-2019 08-26-2019 Episodic Other non-traumatic joint disorders (20 sources) Pain in right knee; Translations: [Pain in joint, lower leg] Onset: 08-26-2019 08-26-2019 Episodic Other non-traumatic joint disorders (20 sources) Hip pain; Translations: [Pain in left hip] Onset: 09-14-2020 09-14-2020 Episodic Other and delivery including normal (20 sources) test positive; Translations: [Encounter for test, result positive] Onset: 05-10-2024 07-21-2023 Episodic Comment on above: GBS neg, NIPT- low r isk anatomy reviewed. afp screen negative.carrier testing done with [facility]*delivery appropriate here, multicystic kidney, plan follow up after Other upper respiratory infections (8 sources) Upper respiratory infection; Translations: [Acute upper respiratory infection, unspecified] Onset: 12-12-2024 04-09-2023 Episodic Residual codes; unclassified (20 sources) Insomnia; Translations: [Insomnia, unspecified] Onset: 09-04-2015 06-19-2019 Episodic Suicide and intentional self-inflicted injury (20 sources) Suicidal thoughts; Translations: [Suicidal ideations] Onset: 06-08-2016 06-08-2016 Episodic Unclassified (11 sources) HISTORY OF PLANTERS WART REMOVAL 03-30-2022 Unclassified (11 sources) NECK AND BACK PAIN 03-30-2022 Results Test Name Value Interpretation Reference Range Facility [facility] 05-14-2025 CNOV Office Visit ([facility]) MILDRED MICHEL ([id number]) 1990 F Date Time Provider Department 05/14/25 7:15 PM ADIEL HERNÁNDEZ During your visit today, we recorded the following information about you: Temperature Pulse Respiration Blood pressure 97.8 degrees 85/minute 20/minute 104/78 Weight 106.5 kg Adiel Hernández APRN.CNP 05/14/2025 7:28 PM Signed [facility] Michel is a 34 year old female. Patient presents with: Dizziness: Vomiting, nausea, upset stomach x 1 day The history is provided by the patient. Dizziness This is a new problem. The current episode started today. The neurological problem developed suddenly. The problem has been gradually worsening since onset. There was no focality noted. Associated symptoms include dizziness, nausea and vomiting. Past treatments include nothing. The treatment provided no relief. Review of Systems Gastrointestinal: Positive for nausea and vomiting. Neurological: Positive for dizziness. Objective BP 104/78 Pulse 85 Temp 36.6 ?C (97.8 ?F) Resp 20 Wt 106.5 kg (234 lb 12.6 oz) LMP 05/29/2023 SpO2 98% Yes BMI 36.77 kg/m? Physical Exam Constitutional: General: She is not in acute distress. Appearance: She is ill-appearing. She is not toxic-appearing. Cardiovascular: Rate and Rhythm: Normal rate and regular rhythm. Abdominal: Palpations: Abdomen is soft. Tenderness: There is no abdominal tenderness. Comments: BS hypoactive Neurological: Mental Status: She is alert. {ASSESSMENT/PLAN: 1. Nausea and vomiting, unspecified vomiting type - ICD9: 787.01, ICD10: R11.2 (primary diagnosis) - ONDANSETRON 4 MG DISINTEGRATING TABLET 2. Viral illness - ICD9: 079.99, ICD10: B34.9 - Discussed viral etiology and rationale for treatment. - Symptomatic treatment with prn analgesia - Supportive care with fluids and rest. - ONDANSETRON 4 MG DISINTEGRATING TABLET Adiel Hernández APRN.FAMILY SERVICES SPECIALIST Differential Diagnoses - Viral gastroenteritis is more likely for the following reason(s): suggested by HANDP Disposition The patient was discharged. Procedures Allergies As of Date: 05/14/2025 Noted Allergy Reaction BACITRACIN 02/14/2022 2 - Rash NEOMYCIN 02/14/2022 2 - Rash POLYMYXIN B 02/14/2022 2 - Rash BANANA 05/19/2016 8 - GI Upset LATEX 05/19/2016 2 - Rash Date Reviewed: 05/14/2025 Reviewed by: Sara Myles MA - Fully Assessed Reason for Visit: Dizziness [36] Cmt: Vomiting, nausea, upset stomach x 1 day Primary Visit Diagnosis:Nausea and vomiting, unspecified vomiting type [R11.2] Other Visit Diagnosis:Viral illness [B34.9] Order(s):ondansetron orally disintegrating (ZOFRAN ODT) 4 mg disintegrating tabletTake 1 tablet by mouth every 8 hours as needed for nausea/vomiting.Disp : 30 tabletRfl: 0 Prescriptions as of 05/14/2025 - ondansetron orally disintegrating (ZOFRAN ODT) 4 mg disintegrating tablet Take 1 tablet by mouth every 8 hours as needed for nausea/vomiting. - sertraline (ZOLOFT) 100 mg tablet Take 1 tablet by mouth once daily. - omeprazole (PRILOSEC) 20 mg capsule Take 1 capsule by mouth daily before breakfast. 1/2 hr before meal. As needed - ergocalciferol 50,000 unit capsule (VITAMIN D2, [...] of Breath. Problem List As Of Date 05/14/2025 Noted Resolved Adjustment reaction with anxiety and depression* 6 Passive suicidal ideations [R45.851] 06/08/2016 ABHILASH (generalized anxiety disorder) [F41.1] 09/04/2015 Insomnia [G47.00] 09/04/2015 Obesity, Class III, BMI >= 40 [E66.813] 06/19/2019 Left knee pain [M25.562] 08/26/2019 Right knee pain [M25.561] 08/26/2019 Chronic left hip pain [M25.552, G89.29] 09/14/2020 Vitamin D deficiency [E55.9] 02/03/2023 Female infertility associated with anovulation *06/02/2023 PCOS (polycystic ovarian syndrome) [E28.2] 06/02/2023 Hypothyroidism, acquired [E03.9] 06/04/2024 Prescriptions ordered this encounter Disp Refills Start End ONDANSETRON 4 MG DISINTEGRATING TABL* 30 t* 0 05/14/2025 Route: PO Sig: Take 1 tablet by mouth every 8 hours as needed for nausea/vomiting. Letter Text Encou (more content not included)... Normal [facility] TSH DL <= 0.005 mIU/L QnOrde red By: Zebulun Beam on 04-17-2025 TSH Qn 1.760 uIU/mL 0.300-4.200 [facility] Thyroid Stim Hormone (TSH)on 04-17-2025 TSH 1.760 uIU/mL Normal 0.300-4.200 [facility] Comment on above: Order Comment: TSH O RDERED BY AND NEGRA Performed By: #### L 501.9520 #### [facility] [address] [place], [place], [id number] Wound Cultureon 03-04-2025 WC Wound Culture Bacillus sp., not anthracis Amount Growth Very Rare Normal [facility] Comment on above: Performed By: #### M 100.678, L400.0001 #### [facility] [address] [place], [address] Culture, Blood (WB)on 2024 CUB Blood cultures x2, from two different sites No growth in 5 days. Normal [facility] Comment on above: Performed By: #### L 500.2500, L100.0100, M200.1000 #### [facility] [address] [place], [place], [id number] Thyroid Antibodieson 025 TG AB 3.8 IU/mL High 0.0-0.9 [facility] Comment on above: Result Comment: Thyr oglobulin Antibody measured by Betty Cortland Methodology It should be noted that the presence of thyroglobulin antibodies may not be pathogenic nor diagnostic, especially at very low levels. The assay tennis coach has found that four percent of individuals without evidence of thyroid disease or autoimmunity will have positive TgAb levels up to 4 IU/mL. Performed at: [facility] [employer] [id number] Belt Builder Helper: Neri Mitchell PhD, Phone: [phone] Performed By: #### M 100.678, L400.0001 #### [facility] [address] [place], [place], [id number] THYR PEROX AB 348 IU/mL High 0-34 [facility] Comment on above: Performed By: #### M 100.678, L400.0001 #### [facility] [address] [facility] [place], [place], [id number] Absolute lymphocyte countOrd ered By: Norma Fitz on 03-01-2025 Lymphocytes Auto (Unsp spec) [#/Vol] 2.47 10*3/uL 0.83-4.51 [facility] Absolute neutrophil countOrd ered By: Norma on 03-01-2025 Neutrophils (Bld) [#/Vol] 3.2 10*3/uL 2.0-7.7 [facility] Anion gap in Serum or Plasma Ordered By: Norma Fitz on 03-01-2025 Anion gap [Moles/Vol] 10 mmol/L 5-15 [facility] Automated lymphocyte count a s percentage of total leukocytesOrdered By: Norma Fitz on 03-01-2025 Lymphocytes/100 WBC Auto (Unsp spec) 38.2 % -41 [facility] BUN/creatinine ratioOrdered By: Norma Fitz on 03-01-2025 Urea nitrogen/Creatinine [Mass ratio] 16.5 mg/mg 10-20 [facility] Basophil percentageOrdered B y: on 03-01-2025 Basophils/100 WBC (Bld) 0.6 % 0-1 [facility] Bilirubin, totalOrdered By: Norma Byrnes on 03-01-2025 Bilirubin [Mass/Vol] mg/dL 0.00-1.30 [facility] CBC W/Diff, Automatedon 02-03 Absolute Lymph 2.47 X10 3/uL Normal 0.83-4.51 [facility] Comment on above: Performed By: #### L 500.4050, L100.0100 #### [facility] [address] [place], [address] Absolute Neut 3.2 X10 3/uL Normal 2.0-7.7 [facility] Comment on above: Performed By: #### L 500.4050, L100.0100 #### [facility] [address] [place], [address] Basophils/100 WBC (Bld) 0.6 % Normal 0-1 [facility] Comment on above: Performed By: #### L 500.4050, L100.0100 #### [facility] [address] [place], [address] Eosinophils/100 WBC (Bld) 5.1 % High 0-5 [facility] Comment on above: Performed By: #### L 500.4050, L100.0100 #### [facility] [address] [place], [address] Erythrocyte distribution width (RBC) [Ratio] 13.4 % Normal 11.6-14.6 [facility] Comment on above: Performed By: #### L 500.4050, L100.0100 #### [facility] [address] [place], [address] Hematocrit (Bld) [Volume fraction] 39.1 % Normal 37-47 [facility] Comment on above: Performed By: #### L 500.4050, L100.0100 #### [facility] [address] [place], [address] Hemoglobin (Bld) [Mass/Vol] 13.0 g/dL Normal 12.0-15.0 [facility] Comment on above: Performed By: #### L 500.4050, L100.0100 #### [facility] [address] [place], [address] IG% 0.300 Normal 0.0-0.9 [facility] Comment on above: Result Comment: IG% - Immature Granulocytes (promyelocytes, myelocytes and metamyelocytes) > 1% indicates that a LEFT SHIFT is Present. Performed By: #### L 500.4050, L100.0100 #### [facility] [address] [place], [address] Lymphocytes/100 WBC (Bld) 38.2 % Normal 19-41 [facility] Comment on above: Performed By: #### L 500.4050, L100.0100 #### [facility] [address] [place], [address] MCH (RBC) [Entitic mass] 28.6 pg Normal 27.0-32.0 [facility] Comment on above: Performed By: #### L 500.4050, L100.0100 #### [facility] [address] [place], [address] MCHC (RBC) [Mass/Vol] 33.2 g/dL Normal 32-36 [facility] Comment on above: Performed By: #### L 500.4050, L100.0100 #### [facility] [address] [place], [address] MCV (RBC) [Entitic vol] 85.9 fL Normal 81-99 [facility] Comment on above: Performed By: #### L 500.4050, L100.0100 #### [facility] [address] [place], [address] Monocytes/100 WBC (Bld) 6.5 % Normal 0-10 [facility] Comment on above: Performed By: #### L 500.4050, L100.0100 #### [facility] [address] [place], [address] Neutrophils/100 WBC (Bld) 49.3 % Normal 47-70 [facility] Comment on above: Performed By: #### L 500.4050, L100.0100 #### [facility] [address] [place], [address] Nucleated RBC (Bld) [#/Vol] 0 10*3/uL Normal 0-5 [facility] Comment on above: Performed By: #### L 500.4050, L100.0100 #### [facility] [address] [place], [address] Platelet mean volume (Bld) [Entitic vol] 11.7 fL Normal 6.2-12.0 [facility] Comment on above: Performed By: #### L 500.4050, L100.0100 #### [facility] [address] [place], [address] Platelets (Bld) [#/Vol] 200 10*3/uL Normal 150-450 [facility] Comment on above: Performed By: #### L 500.4050, L100.0100 #### [facility] [address] [place], [address] RBC (Bld) [#/Vol] 4.55 10*6/uL Normal 4.2-5.4 [facility] Comment on above: Performed By: #### L 500.4050, L100.0100 #### [facility] [address] [place], [address] RDW SD 42.2 fl Normal 35.1-43.9 [facility] Comment on above: Performed By: #### L 500.4050, L100.0100 #### [facility] [address] [place], [address] WBC (Bld) [#/Vol] 6.5 10*3/uL Normal 4.4-11.0 [facility] Comment on above: Performed By: #### L 500.4050, L100.0100 #### [facility] [address] [place], [address] Carbon dioxide, total [Moles /volume] in Central venous bloodOrdered By: Norma Byrnes on 03-01-2025 CO2 [Moles/Vol] 22.6 mmol/L 21.0-32.0 [facility] Chloride assayOrdered By: Daphne Byrnes on 03-01-2025 Chloride [Moles/Vol] 109 mmol/L High 98-108 [facility] Comprehensive Metabolic Prof ilon 03-01-2025 Albumin [Mass/Vol] 3.6 g/dL Normal 3.5-5.0 [facility] Comment on above: Performed By: #### L 500.4050, L100.0100 #### [facility] [address] [place], [address] Albumin/Globulin [Mass ratio] 1.7 {ratio} Normal 0.9-2.4 [facility] Comment on above: Performed By: #### L 500.4050, L100.0100 #### [facility] [address] [place], [address] ALK PHOS 67 U/L Normal 35-104 [facility] Comment on above: Performed By: #### L 500.4050, L100.0100 #### [facility] [address] [place], [address] ALT [Catalytic activity/Vol] 25 U/L Normal <=34 [facility] Comment on above: Performed By: #### L 500.4050, L100.0100 #### [facility] [address] [place], [address] AST [Catalytic activity/Vol] 18 U/L Normal <=31 [facility] Comment on above: Performed By: #### L 500.4050, L100.0100 #### [facility] [address] [place], [address] BUN/CRE 16.5 RATIO Normal 10-20 [facility] Comment on above: Performed By: #### L 500.4050, L100.0100 #### [facility] [address] [place], [address] Calcium [Mass/Vol] 8.9 mg/dL Normal 7.6-11.0 [facility] Comment on above: Performed By: #### L 500.4050, L100.0100 #### [facility] [address] [place], [address] Chloride [Moles/Vol] 109 mmol/L High 98-108 [facility] Comment on above: Performed By: #### L 500.4050, L100.0100 #### [facility] [address] [place], [address] CO2 [Moles/Vol] 22.6 mmol/L Normal 21.0-32.0 [facility] Comment on above: Performed By: #### L 500.4050, L100.0100 #### [facility] [address] [place], [address] Creatinine [Mass/Vol] 0.82 mg/dL Normal 0.70-1.20 [facility] Comment on above: Performed By: #### L 500.4050, L100.0100 #### [facility] [address] [place], [address] ECRCL 113.80 ml/min Normal 50-250 [facility] Comment on above: Performed By: #### L 500.4050, L100.0100 #### [facility] [address] [place], [address] GAP 10 Normal 5-15 [facility] Comment on above: Performed By: #### L 500.4050, L100.0100 #### [facility] [address] [place], [address] GFR/1.73 sq M.predicted among non-blacks MDRD (S/P/Bld) [Vol rate/Area] 96 mL/min/{1.73_m2} Normal >60 [facility] Comment on above: Result Comment: mL/m in/1.73m2 CKD-EPI Creatinine Equation (2020) Performed By: #### L 500.4050, L100.0100 #### [facility] [address] [place], [address] Globulin (S) [Mass/Vol] 2.1 g/dL Low 2.2-4.2 [facility] Comment on above: Performed By: #### L 500.4050, L100.0100 #### [facility] [address] [place], [address] Glucose [Mass/Vol] 109 mg/dL High 70-99 [facility] Comment on above: Performed By: #### L 500.4050, L100.0100 #### [facility] [address] [place], [address] Potassium [Moles/Vol] 4.1 mmol/L Normal 3.3-5.1 [facility] Comment on above: Performed By: #### L 500.4050, L100.0100 #### [facility] [address] [place], [address] Sodium [Moles/Vol] 141 mmol/L Normal 133-145 [facility] Comment on above: Performed By: #### L 500.4050, L100.0100 #### [facility] [address] [place], [address] T BILI < 0.15 Normal 0.00-1.30 [facility] Comment on above: Performed By: #### L 500.4050, L100.0100 #### [facility] [address] [place], [address] T PROT 5.7 g/dL Low 5.9-8.4 [facility] Comment on above: Performed By: #### L 500.4050, L100.0100 #### [facility] [address] [place], [address] Urea nitrogen [Mass/Vol] 14 mg/dL Normal 4-19 [facility] Comment on above: Performed By: #### L 500.4050, L100.0100 #### [facility] [address] [place], [address] Discharge Instructionon 02-03 Discharge Instruction [facility] Medical Records Department [address] [place] [address] Instructions for Home/Discharge Instructions 03/01/25 1041 MR#: [id number] Acct: [id number] Name: MILDRED MICHEL Rep #: [id number] : 1990 34 From: Mark Stephens DO PCP: Aparna Chavez [employer] Status:ADM IN Discharge Instructions Diet Discharge Diet: No restrictions DC O2, CPAP, BIPAP needs Home O2 Discharge instructions: No Dressing / Incision Discharge Activity: Return to Normal Activity Weight Bearing Status: Full weight bearing Follow Up Care Test Results: Test results from this visit will be discussed in further detail at your follow-up appointment, if applicable. Discharge Plan Admission Admit Date/Time: 02/28/25 22:47 Primary Reason for Your Visit: Cellulitis of the legs secondary to insect bites Attending Provider: Mark Stephens Primary Care Provider: Aparna Chavez Consulting Providers: Norma Byrnes Discharge Orders/Prescriptions Prescriptions: New cefdinir 300 mg capsule 300 mg PO BID Qty: 14 0RF doxycycline monohydrate 100 mg tablet 100 mg PO BID Qty: 14 0RF Continued sertraline [Zoloft] 100 mg tablet 100 mg PO DAILY PNV-DHA 27 mg iron-1 mg -300 mg capsule 1 cap PO DAILY albuterol sulfate 90 mcg/actuation HFA aerosol inhaler 2 puff inhalation Q6H PRN (Reason: asthma) cholecalciferol (vitamin D3) 50 mcg (2,000 unit) capsule 50 mcg PO QDAY mupirocin 2 % ointment 1 applic topical TID Discontinued sulfamethoxazole-tri methoprim 800-160 mg tablet 1 tab PO BID Referrals / Follow Up: Aparna Chavez, [employer] [Primary Care Provider] - See Referral Note (At next scheduled appointment time) Disposition Disposition (needs filled in before D/C Order can be placed): Home, Self Care 03/01/25 1050 Kat MONROE CC: Dr. Norma Byrnes MD; Aparna PINA [employer] Kathy Signed Normal [facility] Eosinophil percentageOrdered By: Norma Byrnes on 03-01-2025 Eosinophils/100 WBC (Bld) 5.1 % High 0-5 [facility] Erythrocyte distribution wid th ratioOrdered By: Norma Byrnes on 03-01-2025 Erythrocyte distribution width (RBC) [Ratio] 13.4 % 11.6-14.6 [facility] Erythrocyte distribution wid th standard deviationOrdered By: Norma Byrnes on 03-01-2025 Erythrocyte distribution width (RBC) [Ratio] 42.2 fl 35.1-43.9 [facility] Glomerular filtration rate ( GFR) estimation/1.73 sq m using serum, plasma, or whole bOrdered By: Norma Byrnes on 03-01-2025 GFR/1.73 sq M.predicted among non-blacks MDRD (S/P/Bld) [Vol rate/Area] 96 mL/min/{1.73_m2} >60 [facility] Comment on above: mL/min/1.73m2 CKD-EP I Creatinine Equation (2020) Gram Stainon 03-01-2025 GS Gram Stain No organisms seen No Epithelial cells Normal [facility] Comment on above: Performed By: #### M 100.678, L400.0001 #### [facility] [address] [facility] [place], [address] Hematocrit Auto (Bld) [Volum e fraction]Ordered By: [facility] on 03-01-2025 Hematocrit (Bld) [Volume fraction] 39.1 % 37-47 [facility] Hemoglobin measurementOrdere d By: Onrma Reno on 03-01-2025 Hemoglobin (Bld) [Mass/Vol] 13.0 g/dL 12.0-15.0 [facility] Immature granulocytes/100 WB C Auto (Bld)Ordered By: [facility] on 03-01-2025 Immature granulocytes/100 WBC (Bld) 0.300 % 0.0-0.9 [facility] Comment on above: IG% - Immature Granu locytes (promyelocytes, myelocytes and metamyelocytes) > 1% indicates that a LEFT SHIFT is Present. L509.7001on 03-01-2025 Procalcitonin 0.05 ng/mL Normal <=0.10 [facility] Comment on above: Result Comment: Inte rpretation: <0.10-0.25 ng/mL: Antibiotic therapy discouraged. Bacterial infection unlikely. 0.25-0.50 ng/mL: Antibiotic therapy encouraged. Bacterial infection possible. >0.50 ng/mL: Antibiotic therapy strongly encouraged. Suggestive of presence of bacterial infection. PCT should always be interpreted in the clinical context of the patient. Therefore, clinicians should use the PCT results in conjunction with other laboratory findings and clinical signs of the patient. Performed By: #### L 509.7001 #### [facility] [address] [facility] [place], [place], [address] Laboratory - Chemistry and C hemistry - challengeOrdered By: [facility] on 03-01-2025 AST [Catalytic activity/Vol] 18 U/L <32 [facility] MCV (mean corpuscular volume ) determinationOrdered By: 03-01-2025 MCV (RBC) [Entitic vol] 85.9 fL 81-99 [facility] Mean corpuscular hemoglobin (MCH) determinationOrdered By: [facility] 03-01-2025 MCH (RBC) [Entitic mass] 28.6 pg 27.0-32.0 [facility] Mean corpuscular hemoglobin concentration (MCHC) determinationOrdered By: Norma Byrnes on 03-01-2025 MCHC (RBC) [Mass/Vol] 33.2 g/dL 32-36 [facility] Mean platelet volume determi nationOrdered By: Norma Byrnes on 03-01-2025 Platelet mean volume (Bld) [Entitic vol] 11.7 fL 6.2-12.0 [facility] Monocyte percentageOrdered B y: Norma Fitz on 03-01-2025 Monocytes/100 WBC (Bld) 6.5 % 0-10 [facility] Neutrophil percentageOrdered By: Fitz on 03-01-2025 Neutrophils/100 WBC (Bld) 49.3 % 47-70 [facility] Nucleated red blood cell per centageOrdered By: Norma Fitz on 03-01-2025 Nucleated RBC/100 WBC (Bld) [Ratio] 0 % 0-5 [facility] Platelet countOrdered By: Daphne Byrnes on 03-01-2025 Platelets (Bld) [#/Vol] 200 10*3/uL 150-450 [facility] Potassium measurement (mass/ volume)Ordered By: Norma Byrnes on 03-01-2025 Potassium (Unsp spec) [Mass/Vol] 4.1 mmol/L 3.3-5.1 [facility] RBC Auto (Bld) [#/Vol]Ordere d By: Norma Byrnes on 03-01-2025 RBC (Bld) [#/Vol] 4.55 10*6/uL 4.2-5.4 [facility] Serum creatinine measurement (mass/volume)Ordered By: Norma Bynres on 03-01-2025 Creatinine [Mass/Vol] 0.82 mg/dL 0.70-1.20 [facility] Serum globulin measurementOr dered By: Norma Byrnes on 03-01-2025 Globulin (S) [Mass/Vol] 2.1 g/dL Low 2.2-4.2 [facility] Serum glucose measurement (m ass/volume)Ordered By: Norma Byrnes on 03-01-2025 Glucose [Mass/Vol] 109 mg/dL High 70-99 [facility] Serum or plasma alanine harper otransferase (ALT) measurementOrdered By: Norma Byrnes on 03-01-2025 ALT [Catalytic activity/Vol] 25 U/L <35 [facility] Serum or plasma albumin [place] urement (mass/volume)Ordered By: Norma Byrnes on 03-01-2025 Albumin [Mass/Vol] 3.6 g/dL 3.5-5.0 [facility] Serum or plasma albumin/glob ulin mass ratioOrdered By: Norma Fitz on 03-01-2025 Albumin/Globulin [Mass ratio] 1.7 {ratio} 0.9-2.4 [facility] Serum or plasma alkaline lindy sphatase measurementOrdered By: Norma Byrnes on 03-01-2025 ALP [Catalytic activity/Vol] 67 U/L 35-104 [facility] Serum or plasma calcium [place] urement (mass/volume)Ordered By: Norma Byrnes on 03-01-2025 Calcium [Mass/Vol] 8.9 mg/dL 7.6-11.0 [facility] Serum or plasma urea nitroge n measurement (mass/volume)Ordered By: Norma Byrnes on 03-01-2025 Urea nitrogen [Mass/Vol] 14 mg/dL 4-19 [facility] Sodium levelOrdered By: Polo mn Fitz on 03-01-2025 Sodium [Moles/Vol] 141 mmol/L 133-145 [facility] Total proteinOrdered By: Nichol umn Fitz on 03-01-2025 Protein [Mass/Vol] 5.7 g/dL Low 5.9-8.4 [facility] White blood cell (WBC) count Ordered By: Norma Byrnes on 03-01-2025 WBC (Bld) [#/Vol] 6.5 10*3/uL 4.4-11.0 [facility] Absolute lymphocyte countOrd ered By: Mary Stoll on 02-28-2025 Lymphocytes Auto (Unsp spec) [#/Vol] 2.51 10*3/uL 0.83-4.51 [facility] Absolute neutrophil countOrd ered By: Mary Stoll on 02-28-2025 Neutrophils (Bld) [#/Vol] 2.8 10*3/uL 2.0-7.7 [facility] Anion gap in Serum or Plasma Ordered By: Mary Stoll on 02-28-2025 Anion gap [Moles/Vol] 11 mmol/L 5-15 [facility] Automated lymphocyte count a s percentage of total leukocytesOrdered By: Mary Stoll on 02-28-2025 Lymphocytes/100 WBC Auto (Unsp spec) 40.0 % [facility] BUN/creatinine ratioOrdered By: Elizabethus Dodie on 02-28-2025 Urea nitrogen/Creatinine [Mass ratio] 14.3 mg/mg 06-23 [facility] Basic Metabolic Profile (BMP )on 02-28-2025 BUN/CRE 14.3 RATIO Normal 06-23 [facility] Comment on above: Performed By: #### L 500.2500, L100.0100, M200.1000 #### [facility] [address] [place], [address] Calcium [Mass/Vol] 8.9 mg/dL Normal 7.6-11.0 [facility] Comment on above: Performed By: #### L 500.2500, L100.0100, M200.1000 #### [facility] [address] [place], [address] Chloride [Moles/Vol] 105 mmol/L Normal 98-108 [facility] Comment on above: Performed By: #### L 500.2500, L100.0100, M200.1000 #### [facility] [address] [place], [address] CO2 [Moles/Vol] 23.0 mmol/L Normal 21.0-32.0 [facility] Comment on above: Performed By: #### L 500.2500, L100.0100, M200.1000 #### [facility] [address] [place], [address] Creatinine [Mass/Vol] 0.82 mg/dL Normal 0.70-1.20 [facility] Comment on above: Performed By: #### L 500.2500, L100.0100, M200.1000 #### [facility] [address] [place], [address] ECRCL 114.62 ml/min Normal 50-250 [facility] Comment on above: Performed By: #### L 500.2500, L100.0100, M200.1000 #### [facility] [address] [place], [address] GAP 11 Normal 5-15 [facility] Comment on above: Performed By: #### L 500.2500, L100.0100, M200.1000 #### [facility] [address] [place], [address] GFR/1.73 sq M.predicted among non-blacks MDRD (S/P/Bld) [Vol rate/Area] 96 mL/min/{1.73_m2} Normal >60 [facility] Comment on above: Result Comment: mL/m in/1.73m2 CKD-EPI Creatinine Equation (2020) Performed By: #### L 500.2500, L100.0100, M200.1000 #### [facility] [address] [place], [address] Glucose [Mass/Vol] 91 mg/dL Normal 70-99 [facility] Comment on above: Performed By: #### L 500.2500, L100.0100, M200.1000 #### [facility] [address] [place], [address] Potassium [Moles/Vol] 4.3 mmol/L Normal 3.3-5.1 [facility] Comment on above: Performed By: #### L 500.2500, L100.0100, M200.1000 #### [facility] [address] [place], [address] Sodium [Moles/Vol] 139 mmol/L Normal 133-145 [facility] Comment on above: Performed By: #### L 500.2500, L100.0100, M200.1000 #### [facility] [address] [place], [address] Urea nitrogen [Mass/Vol] 12 mg/dL Normal 4-19 [facility] Comment on above: Performed By: #### L 500.2500, L100.0100, M200.1000 #### [facility] [address] [place], [address] Basophil percentageOrdered B y: Remus Ungur on 02-28-2025 Basophils/100 WBC (Bld) 1.0 % 0-1 [facility] Blood cultureOrdered By: Rem us Ungur on 02-28-2025 Bacteria identified Cx Nom (Bld) No growth in 5 days. [facility] Bacteria identified Cx Nom (Bld) No growth in 5 days. [facility] CBC W/Diff, Automatedon 02-03 Absolute Lymph 2.51 X10 3/uL Normal 0.83-4.51 [facility] Comment on above: Performed By: #### L 500.2500, L100.0100, M200.1000 #### [facility] [address] [place], [address] Absolute Neut 2.8 X10 3/uL Normal 2.0-7.7 [facility] Comment on above: Performed By: #### L 500.2500, L100.0100, M200.1000 #### [facility] [address] [place], [address] Basophils/100 WBC (Bld) 1.0 % Normal 0-1 [facility] Comment on above: Performed By: #### L 500.2500, L100.0100, M200.1000 #### [facility] [address] [place], [address] Eosinophils/100 WBC (Bld) 8.4 % High 0-5 [facility] Comment on above: Performed By: #### L 500.2500, L100.0100, M200.1000 #### [facility] [address] [place], [address] Erythrocyte distribution width (RBC) [Ratio] 13.7 % Normal 11.6-14.6 [facility] Comment on above: Performed By: #### L 500.2500, L100.0100, M200.1000 #### [facility] [address] [place], [address] Hematocrit (Bld) [Volume fraction] 42.1 % Normal 37-47 [facility] Comment on above: Performed By: #### L 500.2500, L100.0100, M200.1000 #### [facility] [address] [place], [address] Hemoglobin (Bld) [Mass/Vol] 14.5 g/dL Normal 12.0-15.0 [facility] Comment on above: Performed By: #### L 500.2500, L100.0100, M200.1000 #### [facility] [address] [place], [address] IG% 0.300 Normal 0.0-0.9 [facility] Comment on above: Result Comment: IG% - Immature Granulocytes (promyelocytes, myelocytes and metamyelocytes) > 1% indicates that a LEFT SHIFT is Present. Performed By: #### L 500.2500, L100.0100, M200.1000 #### [facility] [address] [place], [address] Lymphocytes/100 WBC (Bld) 40.0 % Normal 19-41 [facility] Comment on above: Performed By: #### L 500.2500, L100.0100, M200.1000 #### [facility] [address] [place], [address] MCH (RBC) [Entitic mass] 29.4 pg Normal 27.0-32.0 [facility] Comment on above: Performed By: #### L 500.2500, L100.0100, M200.1000 #### [facility] [address] [place], [address] MCHC (RBC) [Mass/Vol] 34.4 g/dL Normal 32-36 [facility] Comment on above: Performed By: #### L 500.2500, L100.0100, M200.1000 #### [facility] [address] [place], [address] MCV (RBC) [Entitic vol] 85.2 fL Normal 81-99 [facility] Comment on above: Performed By: #### L 500.2500, L100.0100, M200.1000 #### [facility] [address] [place], [address] Monocytes/100 WBC (Bld) 6.2 % Normal 0-10 [facility] Comment on above: Performed By: #### L 500.2500, L100.0100, M200.1000 #### [facility] [address] [place], [address] Neutrophils/100 WBC (Bld) 44.1 % Low 47-70 [facility] Comment on above: Performed By: #### L 500.2500, L100.0100, M200.1000 #### [facility] [address] [place], [address] Nucleated RBC (Bld) [#/Vol] 0 10*3/uL Normal 0-5 [facility] Comment on above: Performed By: #### L 500.2500, L100.0100, M200.1000 #### [facility] [address] [place], [address] Platelet mean volume (Bld) [Entitic vol] 11.5 fL Normal 6.2-12.0 [facility] Comment on above: Performed By: #### L 500.2500, L100.0100, M200.1000 #### [facility] [address] [place], [address] Platelets (Bld) [#/Vol] 242 10*3/uL Normal 150-450 [facility] Comment on above: Performed By: #### L 500.2500, L100.0100, M200.1000 #### [facility] [address] [place], [address] RBC (Bld) [#/Vol] 4.94 10*6/uL Normal 4.2-5.4 [facility] Comment on above: Performed By: #### L 500.2500, L100.0100, M200.1000 #### [facility] [address] [place], [address] RDW SD 41.9 fl Normal 35.1-43.9 [facility] Comment on above: Performed By: #### L 500.2500, L100.0100, M200.1000 #### [facility] [address] [place], [address] WBC (Bld) [#/Vol] 6.3 10*3/uL Normal 4.4-11.0 [facility] Comment on above: Performed By: #### L 500.2500, L100.0100, M200.1000 #### [facility] [address] [place], [address] CRPon 02-28-2025 C-REACTIVE PROT 11.00 mg/L High 0.0-3.0 [facility] Comment on above: Performed By: #### L 500.2500, L100.0100, M200.1000 #### [facility] [address] [place], [address] Carbon dioxide, total [Moles /volume] in Central venous bloodOrdered By: Mary Stoll on 02-28-2025 CO2 [Moles/Vol] 23.0 mmol/L 21.0-32.0 [facility] Chloride assayOrdered By: Sherrell Stoll on 02-28-2025 Chloride [Moles/Vol] 105 mmol/L 98-108 [facility] Emergency Department Summary on 02-28-2025 Emergency Department Summary [facility] Medical Records Department [address] [place] [address] Emergency Department Summary 02/28/25 MR#: [id number] Acct: [id number] Name: MILDRED MICHEL Rep #: [id number] : 1990 34 From: Mary Stoll DO PCP: Aparna Chavez [employer] Status:REG ER Location: ED HPI History of Present Illness Chief Complaint: Cellulitis Detail of Chief Complaint: Wounds/rash Informant: patient Narrative Narrative: Patient with wounds that she thought were bug bites that started on February 19. Subsequently developed surrounding erythema. She was seen at [facility] in [place] and diagnosed with MRSA by simple observation and was started on Bactrim 3 days ago. She continues to get new lesions and does not feel like she is responding to treatment. She denies fevers or chills or sweats. 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 The lesions are mostly involving her lower extremities. [facility] Medical History Family history of hearing loss [...] no.1 1 mg-dha 300 mg capsule (PNV-DHA) enoxaparin 40 mg/0.4 mL 60 mg (0.6 mL) subcut Q24H 6 weeks 03/23/24 Unknown Rx subcutaneous syringe (Lovenox) #25.2 mL cholecalciferol (vitamin D3) 50 50 mcg PO QDAY 05/10/24 Unknown Hi story mcg (2,000 unit) capsule Allergy/AdvReac Type Severity Reaction Status Date / Time bacitracin (From Neosporin Allergy Intermediate Rash Verified 02/28/25 18:49 ([id number])) neomycin (From Neosporin Allergy Intermediate Rash Verified 02/28/25 18:49 ([id number]-[id number])) polymyxin B (From Neosporin Allergy Intermediate Rash Verified 02/28/25 18:49 (gju-[id number])) latex Allergy Rash Verified 02/28/25 18:49 banana AdvReac Nausea Verified 02/28/25 18:49 Family History Father Seizures Chiari malformation Lupus [...] history of recent travel: Yes (FLA at [place]) out of state: Yes out of country: [...] in: swimming frequency: 3-4 times per week song/druze: Confucianism seatbelt use: always do you feel safe at home: Yes additional social history: - [employer]- [employer] ROS ROS ED Review of Systems ROS Unobtainable: other Constitutional Constitutional ED: Reports lethargy; Denies chills, fever(s), sweats or weight loss Eyes Eyes: Denies blurry vision, change in vision or diplopia ENT ENT ED: Denies rhinorrhea or sore throat Cardiovascular Cardiovascular: Denies chest pain, orthopnea or racing heartbeat Respiratory/Chest Respiratory/Chest: Denies cough, dyspnea, dyspnea on exertion, orthopnea or sputum Gastrointestinal Gastrointestinal: Denies abdominal pain, diarrhea, nausea or vomiting Genitourinary Genitourinary ED: Denies dysuria, hematuria or urinary frequency Musculoskeletal Musculoskeletal: Denies arthralgias, back pain, myalgias or neck pain Integumentar (more content not included)... Normal [facility] Eosinophil percentageOrdered By: Mary Stoll on 02-28-2025 Eosinophils/100 WBC (Bld) 8.4 % High 0-5 [facility] Erythrocyte Sed Rateon 02-28 SED RATE 8 mm/hr Normal 0-30 [facility] Comment on above: Performed By: #### L 500.2500, L100.0100, M200.1000 #### [facility] [address] [place], [place], [id number] Erythrocyte distribution wid th ratioOrdered By: Mary Stoll on 02-28-2025 Erythrocyte distribution width (RBC) [Ratio] 13.7 % 11.6-14.6 [facility] Erythrocyte distribution wid th standard deviationOrdered By: Mary Stoll on 02-28-2025 Erythrocyte distribution width (RBC) [Ratio] 41.9 fl 35.1-43.9 [facility] Erythrocyte sedimentation ra teOrdered By: Mary Stoll on 02-28-2025 ESR (Bld) [Velocity] 8 mm/h 0-30 [facility] Glomerular filtration rate ( GFR) estimation/1.73 sq m using serum, plasma, or whole bOrdered By: Mary Stoll on 02-28-2025 GFR/1.73 sq M.predicted among non-blacks MDRD (S/P/Bld) [Vol rate/Area] 96 mL/min/{1.73_m2} >60 [facility] Comment on above: mL/min/1.73m2 CKD-EP I Creatinine Equation (2020) Gram stainOrdered By: Mary Stoll on 02-28-2025 Microscopic observation Gram stain Nom (Unsp spec) [facility] H AND P Exam - Hospitaliston 02-28-2025 H&P Exam - Hospitalist [facility] Medical Records Department [address] [place] [address] H P Exam - Hospitalist 02/28/25 [id number] MR#: [id number] Acct: [id number] Name: MILDRED MICHEL Rep #: [id number] : 1990 34 From: Norma Byrnes MD PCP: Aparna Chavez [employer] Status:REG ER Location: ED HPI - General General Date of Admission: 02/28/25 Date of Service: 02/28/25 Chief Complaint: BL LE bite wounds with worsening erythema despite recent abx therapy. HPI Narrative The patient is a 34 y/o F w/ PMHx: Thyroid disorder, Hx VTE (DVT), Asthma w/ Allergic rhinitis, Anxiety and Depression, PCOS who presents to the [facility] ED on 02/28/2025 with history of what she presumed initially were bug bites on 02/19 with eventual subsequently developing mirella-bite erythema seen at [facility] in [place] and diagnosed at that time with MRSA infection placed on Bactrim and started this 3 days previous to current presentation however she feels as though she has had worsening appearance with increased erythema 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 She does report being more fatigued. She does report notable itching to the BL LE. Workup in the ED included T98.5, heart rate 82, BP 130/88, respiratory rate 16, 100% on room air with most recent repeat vitals heart rate 80, BP 124/67, respiratory rate 18, 100% on room air, CBC with WC 6.3, hemoglobin 14.5, platelet 242 without marked shift, ESR pending and CRP pending upon requested evaluation of patient, BNP unremarkable. In the ED patient ministered vancomycin 15 mg IV x 1. In the ED localized cultures obtained per ED physician with MRSA culture and wound culture obtained. [facility] Medical History Asthma PCOS (polycystic ovarian syndrome) Family history of hearing loss at age younger than 7 years DVT (deep venous thrombosis) Superficial varicosities Headache Bleeding in early Seasonal allergies History of DVT of lower extremity Anovulation Depression with anxiety Home Medications ???Medication ???Instructions ???Recorded ???Last Taken [...] no.1 1 mg-dha 300 mg capsule (PNV-DHA) enoxaparin 40 mg/0.4 mL 60 mg (0.6 mL) subcut Q24H 6 weeks 03/23/24 Unknown Rx subcutaneous syringe (Lovenox) #25.2 mL cholecalciferol (vitamin D3) 50 50 mcg PO QDAY 05/10/24 Unknown Hi story mcg (2,000 unit) capsule Allergy/AdvReac Type Severity Reaction Status Date / Time bacitracin (From Neosporin Allergy Intermediate Rash Verified 02/28/25 18:49 ([id number]-[id number])) neomycin (From Neosporin Allergy Intermediate Rash Verified 02/28/25 18:49 ([id number])) polymyxin B (From Neosporin Allergy Intermediate Rash Verified 02/28/25 18:49 ([id number])) latex Allergy Rash Verified 02/28/25 18:49 banana AdvReac Nausea Verified 02/28/25 18:49 Family History Father Seizures Chiari malformation Lupus [...] history of recent travel: Yes (FLA at [place]) out of state: Yes out of country: [...] in: swimming frequency: 3-4 times per week song/druze: Confucianism seatbelt use: always do you feel safe at home: Yes additional social history: - [employer]- [employer] ROS ROS Maikel (more content not included)... Normal [facility] Hematocrit Auto (Bld) [Volum e fraction]Ordered By: Mary Stoll on 02-28-2025 Hematocrit (Bld) [Volume fraction] 42.1 % 37-47 [facility] Hemoglobin measurementOrdere d By: Mary Stoll on 02-28-2025 Hemoglobin (Bld) [Mass/Vol] 14.5 g/dL 12.0-15.0 [facility] Immature granulocytes/100 WB C Auto (Bld)Ordered By: Mary Stoll on 02-28-2025 Immature granulocytes/100 WBC (Bld) 0.300 % 0.0-0.9 [facility] Comment on above: IG% - Immature Granu locytes (promyelocytes, myelocytes and metamyelocytes) > 1% indicates that a LEFT SHIFT is Present. MCV (mean corpuscular volume ) determinationOrdered By: Mary Stoll on 02-28-2025 MCV (RBC) [Entitic vol] 85.2 fL 81-99 [facility] MRSA Wound DNA by PCRon 02-03 MRSA DNA ASSAY Negative Normal Negative [facility] Comment on above: Performed By: #### M 100.678, L400.0001 #### [facility] [address] [place], [address] SA DNA ASSAY Positive Abnormal Negative [facility] Comment on above: Performed By: #### M 100.678, L400.0001 #### [facility] [address] [place], [address] Mean corpuscular hemoglobin (MCH) determinationOrdered By: Mary Stoll on 02-28-2025 MCH (RBC) [Entitic mass] 29.4 pg 27.0-32.0 [facility] Mean corpuscular hemoglobin concentration (MCHC) determinationOrdered By: Mary Stoll on 02-28-2025 MCHC (RBC) [Mass/Vol] 34.4 g/dL 32-36 [facility] Mean platelet volume determi nationOrdered By: Mary Stoll on 02-28-2025 Platelet mean volume (Bld) [Entitic vol] 11.5 fL 6.2-12.0 [facility] Monocyte percentageOrdered B y: Mary Stoll on 02-28-2025 Monocytes/100 WBC (Bld) 6.2 % 0-10 [facility] Neutrophil percentageOrdered By: Mary Stoll on 02-28-2025 Neutrophils/100 WBC (Bld) 44.1 % Low 47-70 [facility] Nucleated red blood cell per centageOrdered By: Mary Stoll on 02-28-2025 Nucleated RBC/100 WBC (Bld) [Ratio] 0 % 0-5 [facility] Platelet countOrdered By: Sherrell Stoll on 02-28-2025 Platelets (Bld) [#/Vol] 242 10*3/uL 150-450 [facility] Potassium measurement (mass/ volume)Ordered By: Mary Stoll on 02-28-2025 Potassium (Unsp spec) [Mass/Vol] 4.3 mmol/L 3.3-5.1 [facility] Procalcitonin [Mass/volume] in Serum or Plasma by ImmunoassayOrdered By: Norma Byrnes on 02-28-2025 Procalcitonin IA [Mass/Vol] 0.05 ng/mL <0.11 [facility] Comment on above: Interpretation:<0.10 -0.25 ng/mL: Antibiotic therapy discouraged. Bacterial infection unlikely.0.25-0.50 ng/mL: Antibiotic therapy encouraged. Bacterial infection possible.>0.50 ng/mL: Antibiotic therapy strongly encouraged. Suggestive of presence of bacterial infection.PCT should always be interpreted in the clinical context of the patient. Therefore, clinicians should use the PCT results in conjunction with other laboratory findings and clinical signs of the patient. RBC Auto (Bld) [#/Vol]Ordere d By: Mary Stoll on 02-28-2025 RBC (Bld) [#/Vol] 4.94 10*6/uL 4.2-5.4 [facility] Routine wound cultureOrdered By: Mary Stoll on 02-28-2025 Microbial culture, routine Bacillus sp., not anthracis Abnormal [facility] Serum creatinine measurement (mass/volume)Ordered By: Mary Stoll on 02-28-2025 Creatinine [Mass/Vol] 0.82 mg/dL 0.70-1.20 [facility] Serum glucose measurement (m ass/volume)Ordered By: Mary Stoll on 02-28-2025 Glucose [Mass/Vol] 91 mg/dL 70-99 [facility] Serum or plasma C reactive p rotein measurement (mass/volume)Ordered By: Mary Stoll on 02-28-2025 CRP [Mass/Vol] 11.00 mg/L High 0.0-3.0 [facility] Serum or plasma calcium [place] urement (mass/volume)Ordered By: Mary Stoll on 02-28-2025 Calcium [Mass/Vol] 8.9 mg/dL 7.6-11.0 [facility] Serum or plasma urea nitroge n measurement (mass/volume)Ordered By: Mary Stoll on 02-28-2025 Urea nitrogen [Mass/Vol] 12 mg/dL 4-19 [facility] Sodium levelOrdered By: Corrine Stoll on 02-28-2025 Sodium [Moles/Vol] 139 mmol/L 133-145 [facility] Staphylococcus aureus DNA de tection by probe and target amplification methodOrdered By: Mary Stoll on 02-28-2025 S. aureus DNA EZEKIEL+probe Ql (Unsp spec) Positive High Negative [facility] White blood cell (WBC) count Ordered By: Mary Stoll on 02-28-2025 WBC (Bld) [#/Vol] 6.3 10*3/uL 4.4-11.0 [facility] Serum or plasma thyroperoxid ase antibody assay (units/volume)Ordered By: Aparna Chavez on 02-27-2025 TPO Ab Qn 348 [IU]/mL High 0-34 [facility] T4 Free Directon 02-27-2025 T4 FREE DIRECT 0.90 ng/dL Normal 0.76-1.46 [facility] Comment on above: Order Comment: CLEAN CATCH Performed By: #### M 100.678, L400.0001 #### [facility] [address] [place] [place], [address] T4 Total, Thyroxinon 025 T4 [Mass/Vol] 6.1 ug/dL Normal 4.8-13.9 [facility] Comment on above: Performed By: #### M 100.678, L400.0001 #### [facility] [address] [facility] [place], [address] T4 freeOrdered By: Aparna Encarnacion eam on 02-27-2025 Free T4 [Mass/Vol] 0.90 ng/dL 0.76-1.46 [facility] ThyroxineOrdered By: Quincyn Kathy on 02-27-2025 T4 [Mass/Vol] 6.1 ug/dL 4.8-13.9 [facility] Absolute lymphocyte countOrd ered By: Ofelun Beam on 02-26-2025 Lymphocytes Auto (Unsp spec) [#/Vol] 1.85 10*3/uL 0.83-4.51 [facility] Absolute neutrophil countOrd ered By: Quincyn Beam on 02-26-2025 Neutrophils (Bld) [#/Vol] 3.5 10*3/uL 2.0-7.7 [facility] Anion gap in Serum or Plasma Ordered By: Zebulun Beam on 02-26-2025 Anion gap [Moles/Vol] 13 mmol/L 5- [facility] Automated lymphocyte count a s percentage of total leukocytesOrdered By: Zebulun Beam on 02-26-2025 Lymphocytes/100 WBC Auto (Unsp spec) 29.1 % - [facility] BUN/creatinine ratioOrdered By: Zebulun Beam on 02-26-2025 Urea nitrogen/Creatinine [Mass ratio] 13.8 mg/mg 10- [facility] Basophil percentageOrdered B y: Zebulun Beam on 02-26-2025 Basophils/100 WBC (Bld) 1.3 % High 0-1 [facility] Bilirubin, totalOrdered By: Zebulun Beam on 02-26-2025 Bilirubin [Mass/Vol] 0.21 mg/dL 0.00-1.30 [facility] CBC W/Diff, Automatedon 02-03 Absolute Lymph 1.85 X10 3/uL Normal 0.83-4.51 [facility] Comment on above: Performed By: #### M 100.678, L400.0001 #### [facility] [address] [place], [address] Absolute Neut 3.5 X10 3/uL Normal 2.0-7.7 [facility] Comment on above: Performed By: #### M 100.678, L400.0001 #### [facility] [address] [place], [address] Basophils/100 WBC (Bld) 1.3 % High 0-1 [facility] Comment on above: Performed By: #### M 100.678, L400.0001 #### [facility] [address] [place], [address] Eosinophils/100 WBC (Bld) 6.6 % High 0-5 [facility] Comment on above: Performed By: #### M 100.678, L400.0001 #### [facility] [address] [place], [address] Erythrocyte distribution width (RBC) [Ratio] 13.4 % Normal 11.6-14.6 [facility] Comment on above: Performed By: #### M 100.678, L400.0001 #### [facility] [address] [place], [address] Hematocrit (Bld) [Volume fraction] 43.6 % Normal 37-47 [facility] Comment on above: Performed By: #### M 100.678, L400.0001 #### [facility] [address] [place], [address] Hemoglobin (Bld) [Mass/Vol] 14.9 g/dL Normal 12.0-15.0 [facility] Comment on above: Performed By: #### M 100.678, L400.0001 #### [facility] [address] [place], [address] IG% 0.300 Normal 0.0-0.9 [facility] Comment on above: Result Comment: IG% - Immature Granulocytes (promyelocytes, myelocytes and metamyelocytes) > 1% indicates that a LEFT SHIFT is Present. Performed By: #### M 100.678, L400.0001 #### [facility] [address] [place], [address] Lymphocytes/100 WBC (Bld) 29.1 % Normal 19-41 [facility] Comment on above: Performed By: #### M 100.678, L400.0001 #### [facility] [address] [place], [address] MCH (RBC) [Entitic mass] 28.9 pg Normal 27.0-32.0 [facility] Comment on above: Performed By: #### M 100.678, L400.0001 #### [facility] [address] [place], [address] MCHC (RBC) [Mass/Vol] 34.2 g/dL Normal 32-36 [facility] Comment on above: Performed By: #### M 100.678, L400.0001 #### [facility] [address] [place], [address] MCV (RBC) [Entitic vol] 84.7 fL Normal 81-99 [facility] Comment on above: Performed By: #### M 100.678, L400.0001 #### [facility] [address] [place], [address] Monocytes/100 WBC (Bld) 7.4 % Normal 0-10 [facility] Comment on above: Performed By: #### M 100.678, L400.0001 #### [facility] [address] [place], [address] Neutrophils/100 WBC (Bld) 55.3 % Normal 47-70 [facility] Comment on above: Performed By: #### M 100.678, L400.0001 #### [facility] [address] [place], [address] Nucleated RBC (Bld) [#/Vol] 0 10*3/uL Normal 0-5 [facility] Comment on above: Performed By: #### M 100.678, L400.0001 #### [facility] [address] [place], [address] Platelet mean volume (Bld) [Entitic vol] 11.4 fL Normal 6.2-12.0 [facility] Comment on above: Performed By: #### M 100.678, L400.0001 #### [facility] [address] [place], [address] Platelets (Bld) [#/Vol] 245 10*3/uL Normal 150-450 [facility] Comment on above: Performed By: #### M 100.678, L400.0001 #### [facility] [address] [place], [address] RBC (Bld) [#/Vol] 5.15 10*6/uL Normal 4.2-5.4 [facility] Comment on above: Performed By: #### M 100.678, L400.0001 #### [facility] [address] [place], [address] RDW SD 41.3 fl Normal 35.1-43.9 [facility] Comment on above: Performed By: #### M 100.678, L400.0001 #### [facility] [address] [place], [address] WBC (Bld) [#/Vol] 6.4 10*3/uL Normal 4.4-11.0 [facility] Comment on above: Performed By: #### M 100.678, L400.0001 #### [facility] [address] [place], [address] Calculated very low density lipoprotein (VLDL) cholesterol measurementOrdered By: Zearethalun Beam on 02-26-2025 Calculated very low density lipoprotein (VLDL) cholesterol measurement 24 mg/dL 5-40 [facility] Carbon dioxide, total [Moles /volume] in Central venous bloodOrdered By: Zebulun Beam on 02-26-2025 CO2 [Moles/Vol] 21.0 mmol/L 21.0-32.0 [facility] Chloride assayOrdered By: Jori rodriguezun Beam on 02-26-2025 Chloride [Moles/Vol] 106 mmol/L 98-108 [facility] Comprehensive Metabolic Prof ilon 02-26-2025 Albumin [Mass/Vol] 4.3 g/dL Normal 3.5-5.0 [facility] Comment on above: Performed By: #### M 100.678, L400.0001 #### [facility] [address] [place], [address] Albumin/Globulin [Mass ratio] 1.4 {ratio} Normal 0.9-2.4 [facility] Comment on above: Performed By: #### M 100.678, L400.0001 #### [facility] [address] [place], [address] ALK PHOS 71 U/L Normal 35-104 [facility] Comment on above: Performed By: #### M 100.678, L400.0001 #### [facility] [address] [place], [address] ALT [Catalytic activity/Vol] 26 U/L Normal <=34 [facility] Comment on above: Performed By: #### M 100.678, L400.0001 #### [facility] [address] [place], [address] AST [Catalytic activity/Vol] 18 U/L Normal <=31 [facility] Comment on above: Performed By: #### M 100.678, L400.0001 #### [facility] [address] [place], [address] Bilirubin [Mass/Vol] 0.21 mg/dL Normal 0.00-1.30 [facility] Comment on above: Performed By: #### M 100.678, L400.0001 #### [facility] [address] [place], [address] BUN/CRE 13.8 RATIO Normal 10-20 [facility] Comment on above: Performed By: #### M 100.678, L400.0001 #### [facility] [address] [place], [address] Calcium [Mass/Vol] 9.3 mg/dL Normal 7.6-11.0 [facility] Comment on above: Performed By: #### M 100.678, L400.0001 #### [facility] [address] [place], [address] Chloride [Moles/Vol] 106 mmol/L Normal 98-108 [facility] Comment on above: Performed By: #### M 100.678, L400.0001 #### [facility] [address] [place], [address] CO2 [Moles/Vol] 21.0 mmol/L Normal 21.0-32.0 [facility] Comment on above: Performed By: #### M 100.678, L400.0001 #### [facility] [address] [place], [address] Creatinine [Mass/Vol] 0.90 mg/dL Normal 0.70-1.20 [facility] Comment on above: Performed By: #### M 100.678, L400.0001 #### [facility] [address] [place], [address] GAP 13 Normal 5-15 [facility] Comment on above: Performed By: #### M 100.678, L400.0001 #### [facility] [address] [place], [address] GFR/1.73 sq M.predicted among non-blacks MDRD (S/P/Bld) [Vol rate/Area] 86 mL/min/{1.73_m2} Normal >60 [facility] Comment on above: Result Comment: mL/m in/1.73m2 CKD-EPI Creatinine Equation (2020) Performed By: #### M 100.678, L400.0001 #### [facility] [address] [place], [address] Globulin (S) [Mass/Vol] 3.0 g/dL Normal 2.2-4.2 [facility] Comment on above: Performed By: #### M 100.678, L400.0001 #### [facility] [address] [place], [address] Glucose [Mass/Vol] 97 mg/dL Normal 70-99 [facility] Comment on above: Performed By: #### M 100.678, L400.0001 #### [facility] [address] [place], [address] Potassium [Moles/Vol] 4.3 mmol/L Normal 3.3-5.1 [facility] Comment on above: Performed By: #### M 100.678, L400.0001 #### [facility] [address] [place], [address] Sodium [Moles/Vol] 139 mmol/L Normal 133-145 [facility] Comment on above: Performed By: #### M 100.678, L400.0001 #### [facility] [address] [place], [address] T PROT 7.3 g/dL Normal 5.9-8.4 [facility] Comment on above: Performed By: #### M 100.678, L400.0001 #### [facility] [address] [place], [address] Urea nitrogen [Mass/Vol] 12 mg/dL Normal 4-19 [facility] Comment on above: Performed By: #### M 100.678, L400.0001 #### [facility] [address] [place], [address] Eosinophil percentageOrdered By: Ofelun Beam on 02-26-2025 Eosinophils/100 WBC (Bld) 6.6 % High 0-5 [facility] Erythrocyte distribution wid th ratioOrdered By: Zebulun Beam on 02-26-2025 Erythrocyte distribution width (RBC) [Ratio] 13.4 % 11.6-14.6 [facility] Erythrocyte distribution wid th standard deviationOrdered By: Zebulun Beam on 02-26-2025 Erythrocyte distribution width (RBC) [Ratio] 41.3 fl 35.1-43.9 [facility] Glomerular filtration rate ( GFR) estimation/1.73 sq m using serum, plasma, or whole bOrdered By: Zebulun Beam on 02-26-2025 GFR/1.73 sq M.predicted among non-blacks MDRD (S/P/Bld) [Vol rate/Area] 86 mL/min/{1.73_m2} >60 [facility] Comment on above: mL/min/1.73m2 CKD-EP I Creatinine Equation (2020) Hematocrit Auto (Bld) [Volum e fraction]Ordered By: Ofelun Beam on 02-26-2025 Hematocrit (Bld) [Volume fraction] 43.6 % 37-47 [facility] Hemoglobin A1con 02-26-2025 HbA1c (Bld) [Mass fraction] 5.7 % Normal <=5.6 [facility] Comment on above: Result Comment: Norm al < 5.7 % Prediabetic 5.7 - 6.4 % Diabetic >or= 6.5 % Please note range changes. Performed By: #### L 500.2500, L100.0100, M200.1000 #### [facility] [address] [place] [address], [id number] Hemoglobin A1c percentageOrd ered By: Aparna Chavez on 02-26-2025 HbA1c (Bld) [Mass fraction] 5.7 % <5.7 [facility] Comment on above: Normal < 5.7 % Predi abetic 5.7 - 6.4 % Diabetic >or= 6.5 % Please note range changes. Hemoglobin measurementOrdere d By: Ofelun Beam on 02-26-2025 Hemoglobin (Bld) [Mass/Vol] 14.9 g/dL 12.0-15.0 [facility] Immature granulocytes/100 WB C Auto (Bld)Ordered By: Joribulun Beam on 02-26-2025 Immature granulocytes/100 WBC (Bld) 0.300 % 0.0-0.9 [facility] Comment on above: IG% - Immature Granu locytes (promyelocytes, myelocytes and metamyelocytes) > 1% indicates that a LEFT SHIFT is Present. LDL calc ser/plasOrdered By: Ofelun Beam on 02-26-2025 Cholesterol in LDL [Mass/Vol] 128 mg/dL [facility] Comment on above: Kshvqrtkyv=186-239 m g/dL & Higher Mmtt=367 mg/dL or greater Laboratory - Chemistry and C hemistry - challengeOrdered By: Aparna Chavez on 02-26-2025 AST [Catalytic activity/Vol] 18 U/L <32 [facility] Lipid Profileon 02-26-2025 CHOL:HDL 4.38 Normal [facility] Comment on above: Performed By: #### M 100.678, L400.0001 #### [facility] [address] [place], [address] Cholesterol [Mass/Vol] 197 mg/dL Normal <=200 [facility] Comment on above: Result Comment: Chol esterol level, Desirable <200 mg/dL Borderline high cholesterol 200-239 mg/dL High cholesterol >=240 mg/dL Recommendations of the NCEP Adult Treatment Panel for the following risk-cutoff thresholds for the [place] population. Performed By: #### M 100.678, L400.0001 #### [facility] [address] [place], [address] Cholesterol in HDL [Mass/Vol] 45 mg/dL Normal [facility] Comment on above: Result Comment: Carol onal Cholesterol Education Program (NCEP) guidelines: <40 mg/dL: Low HDL-cholesterol (major risk factor for CHD) >= 60 mg/dL: High HDL-cholesterol (negative risk factor for CHD) HDL-cholesterol is affected by a number of factors, e.g. smoking, exercise, hormones, sex and age. Performed By: #### M 100.678, L400.0001 #### [facility] [address] [place], [address] Cholesterol in LDL [Mass/Vol] 128 mg/dL Normal [facility] Comment on above: Result Comment: Bord hstqvs=820-740 mg/dL Higher Zblk=618 mg/dL or greater Performed By: #### M 100.678, L400.0001 #### [facility] [address] [place], [address] Cholesterol in VLDL [Mass/Vol] 24 mg/dL Normal 5-40 [facility] Comment on above: Performed By: #### M 100.678, L400.0001 #### [facility] [address] [place], [place], [address] Triglyceride [Mass/Vol] 119 mg/dL Normal [facility] Comment on above: Result Comment: The drugs N-Acetylcysteine and Metamizole may falsely depress this assay. Normal range: <150 mg/dL Borderline High: 150-199 mg/dL High: 200-499 mg/dL Very High: >500 mg/dL Performed By: #### M 100.678, L400.0001 #### [facility] [address] [place], [place], [address] MCV (mean corpuscular volume ) determinationOrdered By: Joribulun Beam on 02-26-2025 MCV (RBC) [Entitic vol] 84.7 fL 81-99 [facility] Mean corpuscular hemoglobin (MCH) determinationOrdered By: Zebulun Beam on 02-26-2025 MCH (RBC) [Entitic mass] 28.9 pg 27.0-32.0 [facility] Mean corpuscular hemoglobin concentration (MCHC) determinationOrdered By: Zebulun Beam on 02-26-2025 MCHC (RBC) [Mass/Vol] 34.2 g/dL 32-36 [facility] Mean platelet volume determi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 [facility] Transcribe Date/Time: Oct 08 2024 10:36A [...] soft tissues: Unremarkable. DIVISION OF RADIOLOGY Provider, [facility] [place] - 10/08/2024 * * *Final Report* * [...] may be due to atelectasis or infiltrate Chamber Worker: [facility] Transcribe Date/Time: Oct 08 2024 10:36A Dictated by : BEATRICE MARTINEZ MD This examination was interpreted and the report reviewed and electronically signed by: BEATRICE MARTINEZ MD on Oct 08 2024 10:37AM EST [facility] Radiology Study observation (narrative) [facility] XR Chest PA and LateralOrder ed By: [facility] Provider on 10-08-2024 [facility] Presley 10-03-2024 CNPN Telephone (FAMPWS) KAITLINMILDRED SAXENA ([id number]) 1990 F Date Time Provider Department 10/03/24 MONICA GERARD During your visit today, we recorded the following information about you: LandrumMaureen 10/03/2024 1:14 PM Signed Patient calling for status update on [place] forms that were dropped off in office on 09/27/24. Patient reports these are due by this weekend. Please contact patient to advise. Cira Bradford LPN 10/04/2024 8:24 AM Signed Forms are on provider desk awaiting further review. RYAN Connor Christy, APRN.FAMILY SERVICES SPECIALIST 10/04/2024 1:03 PM Signed Form complete. Monica Gerard APRN.Cira Robins LPN 10/04/2024 1:35 PM Signed Pt notified. Copy of form sent for scanning. 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 Cira Bradford LPN Allergies As of Date: 10/03/2024 Noted Allergy Reaction BANANA 05/19/2016 8 - GI Upset LATEX 05/19/2016 2 - Rash Date Reviewed: 06/04/2024 Reviewed by: Cira Bradford LPN - Fully Assessed Reason for Visit: [facility] Paperwork [[id number]] Cmt: Due by 10/05/24 Prescriptions as of [...] Noted Resolved Adjustment reaction with anxiety and depression* 6 Passive suicidal ideations [R45.851] 06/08/2016 ABHILASH (generalized [...] Encounter Status:Closed by CIRA BRADFORD on 10/04/24 [facility] CNOVlupe 06-04-2024 CNOV Office Visit (FAMPWS) MILDRED MICHEL ([id number]) 1990 F Date Time Provider Department 06/04/24 3:40 PM MONICA GERARD FAMPWS During your visit today, we recorded the following information about you: Pulse Respiration Blood pressure Weight 87/minute 16/minute 126/72 108.9 kg Monica Gerard APRN.CNP 06/04/2024 6:05 PM Signed This is a [...] Always has been susceptible to heat. No diarrhea/constipatio n. PCOS Started metformin in fertility. Was taking [...] needed for Wheezing/Shortness of Breath. No current facility-administere d medications for this visit. FAMILY HISTORY Problem [...] ICD10: E03.9 Will be getting labs per INFORMATICS COORDINATOR soon. Discussed treatment plan and patient voices understanding. Patient's questions answered appropriately. Medicat (more content not included)... Normal [facility] After School Program Coordinator Office Visit Reporton 05-10-2024 After School Program Coordinator Office Visit Report [facility] [address], [address] [place] [address] OFFICE VISIT Date of Service: 05/10/24 MR#: [id number] Acct: [id number] Name: MILDRED MICHEL Rep #: [id number] : 1990 Provider: Dr. Gudelia Reyna DO Age/Sex: 33/F [place] [facility] [place]: Signed Intake Vital Signs 03/26/24 09:29 04/10/24 11:25 05/10/24 11:24 05/10/24 11:25 Height 5 ft 2 in 5 ft 2 in 5 ft 2 in 5 ft 2 in Weight: 235 lb BMI 43.0 BP 100/64 Intake Visit Reasons: visit (obstetrics) Patrol Supervisor Required: No Is patient in pain?: No Allergies bacitracin (From Neosporin (rux-wim-irjte)) Allergy (Intermediate, Verified 05/10/24 11:23) Rash neomycin (From Neosporin (xle-esl-lvoru)) Allergy (Intermediate, Verified 05/10/24 11:23) Rash polymyxin B (From Neosporin (vys-gop-wxifx)) Allergy (Intermediate, Verified 05/10/24 11:23) Rash latex [...] history of recent travel: Yes (FLA at [employer]) out of state: Yes out of country: [...] in: swimming frequency: 3-4 times per week song/druze: Confucianism seatbelt use: always do you feel safe [...] live - full term 8# Male epidural [facility] Gudelia Knowles Delivery Date: 03/21/24 Last [...] a failure (more content not included)... Normal [facility] Progress Noteon 11-20-2023 Transportation Sales Consultant Authentication Interface Message Text MFM attending note: [...] Negative. Skin: Negative. Neurological: Negative. Endo/Heme/Allergies: Negative. Psychiatric/Behavior al: Negative. PHYSICAL EXAM: BP 120/58 Pulse 88 [...] 1. Continued obstetrical care with her primary wire strander is recommended. 2. Follow up q4 weeks to evaluate biometric parameters and renals. These are planned with the [facility]. 3. surveillance as follows: as clinically indicated. [...] at 1 month after . Please call [phone]. 9. Other follow up as clinically indicated. Chart review and preparation: 10 minutes. Face to face: 15 minutes. Documentation and care coordination: 5 minutes. Total time spent on patient care today: 30 minutes. Normal [facility] Laboratory - Chemistry and C hemistry - challengeon 11-16-2023 Glucose Ql (U) Negative [facility] - Urinalysison Protein Ql (U) Negative [facility] - Chemistry and C hemistry - challengeon 10-16-2023 Glucose Ql (U) Negative [facility] - Urinalysison Protein Ql (U) Negative [facility] - Chemistry and C hemistry - challengeon 09-19-2023 Glucose Ql (U) Negative [facility] - Urinalysison Protein Ql (U) Negative [facility] - Chemistry and C hemistry - challengeOrdered By: Khoi King on 09-18-2023 Free T4 [Mass/Vol] 0.91 ng/dL 0.76-1.46 [facility] No Panel InformationOrdered By: Khoi King on 09-18-2023 Miscellaneous Test Comment MAILED SPECIMEN [facility] Thyroid Stimulating Hormone (TSH) 1.52 uIU/mL 0.358-3.74 [facility] Chlamydia trachomatis rRNA d etection by probe and target amplification methodOrdered By: Khoi King on 08-24-2023 C. trachomatis rRNA EZEKIEL+probe Ql (Unsp spec) Negative Negative [facility] Culture, urineOrdered By: Phillip King on 08-24-2023 Bacteria identified Cx Nom (U) Mixed Gram Pos & Gram Neg Org [facility] Bacteria identified Cx Nom (U) Mixed Gram Pos & Gram Neg Org [facility] - Microbiology an d Antimicrobial susceptibilityOrdered By: Khoi King on 08-24-2023 N. gonorrhoeae DNA EZEKIEL+probe Ql (Unsp spec) Negative Negative [facility] Comment on above: Performed at: =[address] [id number] Director: Lashon Block MD, Phone: [phone] Absolute lymphocyte countOrd ered By: Khoi King on 08-15-2023 Lymphocytes Auto (Unsp spec) [#/Vol] 2.80 10*3/uL 0.83-4.51 [facility] Basophil percentageOrdered B y: Khoi King on 08-15-2023 Basophils/100 WBC (Bld) 0.7 % 0-1 [facility] Eosinophils/100 WBC (Bld) 4.2 % 0-5 [facility] Neutrophils (Bld) [#/Vol] 6.0 10*3/uL 2.0-7.7 [facility] Neutrophils/100 WBC (Bld) 59.7 % 47-70 [facility] WBC (Bld) [#/Vol] 10.0 10*3/uL 4.4-11.0 [facility] Blood erythrocytes count (nu mber/volume)Ordered By: Khoi King on 08-15-2023 RBC (Bld) [#/Vol] 4.82 10*6/uL 4.2-5.4 [facility] Blood hemoglobin measurement (mass/volume)Ordered By: Khoi King on 08-15-2023 Hemoglobin (Bld) [Mass/Vol] 14.8 g/dL 12.0-15.0 [facility] Blood lymphocytes/100 leukoc ytesOrdered By: Khoi King on 08-15-2023 Lymphocytes/100 WBC (Bld) 28.0 % 19-41 [facility] Blood monocytes/100 leukocyt esOrdered By: Khoi King on 08-15-2023 Monocytes/100 WBC (Bld) 7.0 % 0-10 [facility] Blood platelet mean volumeOr dered By: Khoi King on 08-15-2023 Platelet mean volume (Bld) [Entitic vol] 10.8 fL 6.2-12.0 [facility] Determination of erythrocyte mean corpuscular volume (MCV)Ordered By: Khoi iKng on 08-15-2023 MCV (RBC) [Entitic vol] 87.6 fL 81-99 [facility] HIV 1 and HIV-2 antibody ass ay with HIV-1 p24 antigen detectionOrdered By: Khoi King on 08-15-2023 HIV 1+2 Ab+HIV1 p24 Ag IA Ql Non-Reactive Nonreactive [facility] Hematocrit Auto (Bld) [Volum e fraction]Ordered By: Khoi King on 08-15-2023 Hematocrit (Bld) [Volume fraction] 42.2 % 37-47 [facility] - Hematology and Cell countsOrdered By: Khoi King on 08-15-2023 Erythrocyte distribution width (RBC) [Entitic vol] 40.5 fL 35.1-43.9 [facility] Erythrocyte distribution width (RBC) [Ratio] 12.6 % 11.6-14.6 [facility] Immature granulocytes/100 WBC (Bld) 0.400 % 0.0-0.9 [facility] Comment on above: IG% - Immature Granu locytes (promyelocytes, myelocytes and metamyelocytes) > 1% indicates that a LEFT SHIFT is Present. MCH (RBC) [Entitic mass] 30.7 pg 27.0-32.0 [facility] Nucleated RBC/100 WBC (Bld) [Ratio] 0 % 0-5 [facility] MCHC Auto (RBC) [Mass/Vol]Or dered By: Khoi King on 08-15-2023 MCHC (RBC) [Mass/Vol] 35.1 g/dL 32-36 [facility] No Panel InformationOrdered By: Khoi King on 08-15-2023 Hepatitis B Surface Antigen Non-Reactive Nonreactive [facility] Hepatitis C Antibody Non-Reactive Nonreactive [facility] Comment on above: Non Reactive: < 0.8 Equivocal: >/= 0.8 to < 1.0 Reactive: >/= 1.0The CDC recommends that a reactive/equivocal HCV antibody result be followed up by the HCV Nucleic Acid Amplificationtest (193370) Rubella IgG Antibody Reactive Nonreactive [facility] Comment on above: Antibody Results Int erpretation of Immune Status Non Reactive Presumed Non-Immune Equivocal Equivocal Reactive Presumed Immune Platelets bldOrdered By: Bernardo King on 08-15-2023 Platelets (Bld) [#/Vol] 282 10*3/uL 150-450 [facility] Serum Treponema species anti body detectionOrdered By: Khoi King on 08-15-2023 Treponema sp Ab Ql (S) Non-Reactive [facility] Serum or plasma choriogonado tropin detectionOrdered By: Khoi King on 08-15-2023 HCG ( test) [place]l [address] mIU/mL <4 [facility] Comment on above: hCG levels with Gest ational AgeGestational Age hCG mIU/mL (IU/L)0.2 - 1 week 5 - 501-2 weeks 50 - 5002-3 weeks 100 - 99664-8 weeks 500 - 826839-4 weeks 1000 - 193887-3 weeks 75009 - 100,0006-8 weeks 32104 - 200,0002-3 months 09737 - 100,000 Whole blood hemoglobin A1c/t otal hemoglobin ratio (mass fraction)Ordered By: Khoi King on 08-15-2023 HbA1c (Bld) [Mass fraction] 5.3 % 3.8-5.6 [facility] Comment on above: Normal < 5.7 % Predi abetic 5.7 - 6.4 % Diabetic >or= 6.5 % Please note range changes. HCG QUAL UR B/Oon 02-28-2023 status Negative neg - pos [facility] Quality Check Yes [facility] UA DIP, URINE (POC)on 2022 BILIRUBIN UA (POCT) Negative Negative [facility] CLARITY UA (POCT) Clear [facility] COLOR UA (POCT) Yellow [facility] GLUCOSE UA (POCT) Negative Negative mg/dL [facility] HEMOGLOBIN/BLOOD UA (POCT) Negative Negative [facility] KETONE UA (POCT) Negative Negative mg/dL [facility] LEUKOCYTES UA (POCT) Negative Negative [facility] NITRITE UA (POCT) Negative Negative [facility] PH UA (POCT) 5.5 4.5 - 8.0 [facility] Protein Ql (U) Negative Negative mg/dL [facility] SPECIFIC GRAVITY UA (POCT) 1.025 1.005 - 1.030 [facility] UROBILINOGEN UA (POCT) 0.2 E.U./dL Normal E.U./ dL [facility] Serum or plasma progesterone measurement (mass/volume)on 07-29-2022 Progesterone [Mass/Vol] 4.79 ng/mL See Comment [facility] Work Phone: Comment on above: Progesterone [...] 08-21-2020 IMPRESSION: Normal x-ray of the pelvis. Chamber Worker: CAMILLE Transcribe Date/Time: Aug 21 2020 3:14P Dictated by : DMITRY GALLGEO MD This examination was interpreted and the report reviewed and electronically signed by: DMITRY GALLEGO MD on Aug 21 2020 3:14PM [facility] DIVISION OF RADIOLOGY * * [...] soft tissue abnormality. DIVISION OF RADIOLOGY Provider, [facility] - 08/21/2020 * * *Final Report* * [...] IMPRESSION IMPRESSION: Normal x-ray of the pelvis. Chamber Worker: PSCB Transcribe Date/Time: Aug 21 2020 3:14P Dictated by : DMITRY GALLEGO MD This examination was interpreted and the report reviewed and electronically signed by: DMITRY GALLEGO MD on Aug 21 2020 3:14PM [facility] Radiology Study observation (narrative) [facility] XR Pelvis and Hip - left AP and Lateral frogOrdered By: f Provider on 08-21-2020 [facility] Vital Signs Date Time Vital Sign Value Performing Clinician Facility 05-14-2025 19:18-0400 Body mass index (BMI) [Ratio] 36.77 kg/m2 Adiel Hernández APRN.CNP Work Phone: [facility] 05-14-2025 19:18-040 Body temperature 97.81 [degF] Adiel Hernández APRN.CNP Work Phone: [facility] 05-14-2025 19:18-040 Body weight 106.5 kg Adiel Hernández APRN.CNP Work Phone: [facility] 05-14-2025 19:18-0400 Diastolic blood pressure 78 mm[Hg] Adiel Hernández MEDICAL BILLING SUPERVISOR.FAMILY SERVICES SPECIALIST Work Phone: [facility] 05-14-2025 19:18-0400 Heart rate 85 /min Adiel Hernández MEDICAL BILLING SUPERVISOR.FAMILY SERVICES SPECIALIST Work Phone: [facility] 05-14-2025 19:18-0400 Respiratory rate 20 /min Adiel Hernández MEDICAL BILLING SUPERVISOR.FAMILY SERVICES SPECIALIST Work Phone: [facility] 05-14-2025 19:18-0400 SaO2% (BldA) [Mass fraction] 98 % Adiel Hernández MEDICAL BILLING SUPERVISOR.FAMILY SERVICES SPECIALIST Work Phone: [facility] 05-14-2025 19:18-0400 Systolic blood pressure 104 mm[Hg] Adiel Hernández MEDICAL BILLING SUPERVISOR.FAMILY SERVICES SPECIALIST Work Phone: [facility] 03-01-2025 09:46-0400 Body temperature 98 [degF] Dr. Norman Kaplan DO Work Phone: [facility] 03-01-2025 09:46-0400 Diastolic blood pressure 69 mm[Hg] Dr. Norman Kaplan DO Work Phone: [facility] 03-01-2025 09:46-0400 Heart rate 82 /min Dr. Norman Kaplan DO Work Phone: [facility] 03-01-2025 09:46-0400 Respiratory rate 18 /min Dr. Norman Kaplan DO Work Phone: [facility] 03-01-2025 09:46-0400 SaO2% (BldA) [Mass fraction] 100 % Dr. Norman Kaplan DO Work Phone: [facility] 03-01-2025 09:46-0400 Systolic blood pressure 105 mm[Hg] Dr. Norman Kaplan DO Work Phone: [facility] 03-01-2025 05:37-0400 Body mass index (BMI) [Ratio] 42.7 kg/m2 Dr. Norman Kaplan DO Work Phone: 5(809)948-442425 [place] [address] 03-01-2025 05:37-0400 Body weight 109.[address] Norman Kaplan DO Work Phone: 8(141)688-909625 [place] [address] 03-01-2025 00:02-0400 Body height 160.[address] Norman Kaplan DO Work Phone: 9(841)846-005025 [place] [address] 02-28-2025 23:14-0400 Body temperature 98.6 [degF] Dr. Norman Kaplan DO Work Phone: 9(973)429-587625 [place] [address] 02-28-2025 23:14-0400 Diastolic blood pressure 68 mm[Hg] Dr. Norman Kaplan DO Work Phone: 6(708)031-177025 [place] [address] 02-28-2025 23:14-0400 Heart rate 89 /min Dr. Norman Kaplan DO Work Phone: 6(136)263-382125 [place] [address] 02-28-2025 23:14-0400 Respiratory rate 14 /min Dr. Norman Kaplan DO Work Phone: 0(781)342-194725 [place] [address] 02-28-2025 23:14-0400 SaO2% (BldA) [Mass fraction] 98 % Dr. Norman Kaplan DO Work Phone: 0(931)692-999725 [place] [address] 02-28-2025 23:14-0400 Systolic blood pressure 154 mm[Hg] Dr. Norman Kaplan DO Work Phone: 4(918)663-060125 [place] [address] 02-28-2025 18:49-0400 Body height 162.[address] Norman Kapaln DO Work Phone: 0(599)105-551725 [place] [address] 02-28-2025 18:49-0400 Body mass index (BMI) [Ratio] 40.6 kg/m2 Dr. Norman Kaplan DO Work Phone: 2(228)161-989325 [place] [address] 02-28-2025 18:49-0400 Body weight 107.[address] Norman Kaplan DO Work Phone: 1(934)097-570725 [place] [address] 01-31-2025 07:29-0400 Body mass index (BMI) [Ratio] 37.02 kg/m2 [facility] MEDICAL BILLING SUPERVISOR.FAMILY SERVICES SPECIALIST Work Phone: [facility] 01-31-2025 07:29-0400 Body temperature 98.29 [degF] [facility] MEDICAL BILLING SUPERVISOR.FAMILY SERVICES SPECIALIST Work Phone: [facility] 01-31-2025 07:29-0400 Body weight 107.2 kg [facility] MEDICAL BILLING SUPERVISOR.FAMILY SERVICES SPECIALIST Work Phone: [facility] 01-31-2025 07:29-0400 Diastolic blood pressure 76 mm[Hg] [facility] MEDICAL BILLING SUPERVISOR.FAMILY SERVICES SPECIALIST Work Phone: [facility] 01-31-2025 07:29-0400 Heart rate 85 /min [facility] MEDICAL BILLING SUPERVISOR.FAMILY SERVICES SPECIALIST Work Phone: [facility] 01-31-2025 07:29-0400 Respiratory rate 18 /min [facility] MEDICAL BILLING SUPERVISOR.FAMILY SERVICES SPECIALIST Work Phone: [facility] 01-31-2025 07:29-0400 SaO2% (BldA) [Mass fraction] 98 % [facility] MEDICAL BILLING SUPERVISOR.FAMILY SERVICES SPECIALIST Work Phone: [facility] 01-31-2025 07:29-0400 Systolic blood pressure 114 mm[Hg] [facility] MEDICAL BILLING SUPERVISOR.FAMILY SERVICES SPECIALIST Work Phone: [facility] 12-08-2024 12:45-0400 Heart rate 78 /min Dr. Norman Kaplan DO Work Phone: [facility] 12-08-2024 12:45-0400 Respiratory rate 18 /min Dr. Norman Kaplan DO Work Phone: [facility] 12-08-2024 12:45-0400 SaO2% (BldA) [Mass fraction] 98 % Dr. Norman Kaplan DO Work Phone: [facility] 12-08-2024 10:45-0400 Body height 157.[address] Norman Kaplan DO Work Phone: [facility] 12-08-2024 10:45-0400 Body mass index (BMI) [Ratio] 43.2 kg/m2 Dr. Norman Kaplan DO Work Phone: [facility] 12-08-2024 10:45-0400 Body temperature 97.4 [degF] Dr. Norman Kaplan DO Work Phone: [facility] 12-08-2024 10:45-0400 Body weight 107.[address] Norman Kaplan DO Work Phone: [facility] 12-08-2024 10:45-0400 Diastolic blood pressure 77 mm[Hg] Dr. Norman Kaplan DO Work Phone: [facility] 12-08-2024 10:45-0400 Systolic blood pressure 119 mm[Hg] Dr. Norman Kaplan DO Work Phone: [facility] 12-08-2024 10:28-0400 Body mass index (BMI) [Ratio] 36.22 kg/m2 Temtiope Navarrete APRN.FAMILY SERVICES SPECIALIST Work Phone: [facility] 12-08-2024 10:28-0400 Body temperature 98.01 [degF] Temitope Navarrete APRN.FAMILY SERVICES SPECIALIST Work Phone: [facility] 12-08-2024 10:28-0400 Body weight 104.9 kg Temitope Navarrete APRN.FAMILY SERVICES SPECIALIST Work Phone: [facility] 12-08-2024 10:28-0400 Diastolic blood pressure 72 mm[Hg] Temitope Navarrete APRN.FAMILY SERVICES SPECIALIST Work Phone: [facility] 12-08-2024 10:28-0400 Heart rate 80 /min Temitope Navarrete APRN.FAMILY SERVICES SPECIALIST Work Phone: [facility] 12-08-2024 10:28-0400 Respiratory rate 16 /min Temitope Navarrete APRN.FAMILY SERVICES SPECIALIST Work Phone: [facility] 12-08-2024 10:28-0400 SaO2% (BldA) [Mass fraction] 99 % Temitope Navarrete APRN.FAMILY SERVICES SPECIALIST Work Phone: [facility] 12-08-2024 10:28-0400 Systolic blood pressure 106 mm[Hg] Temitope Navarrete MEDICAL BILLING SUPERVISOR.FAMILY SERVICES SPECIALIST Work Phone: [facility] 10-08-2024 10:08-0500 Body mass index (BMI) [Ratio] 39.12 kg/m2 Ana Camejo MEDICAL BILLING SUPERVISOR.FAMILY SERVICES SPECIALIST Work Phone: [facility] 10-08-2024 10:08-0500 Body temperature 98.4 [degF] Ana Camejo MEDICAL BILLING SUPERVISOR.FAMILY SERVICES SPECIALIST Work Phone: [facility] 10-08-2024 10:08-0500 Body weight 113.3 kg Ana Camejo APRN.FAMILY SERVICES SPECIALIST Work Phone: [facility] 10-08-2024 10:08-0500 Diastolic blood pressure 76 mm[Hg] Ana Camejo APRN.FAMILY SERVICES SPECIALIST Work Phone: [facility] 10-08-2024 10:08-0500 Heart rate 96 /min Ana Camejo APRN.FAMILY SERVICES SPECIALIST Work Phone: [facility] 10-08-2024 10:08-0500 Respiratory rate 16 /min Ana Camejo APRN.FAMILY SERVICES SPECIALIST Work Phone: [facility] 10-08-2024 10:08-0500 SaO2% (BldA) [Mass fraction] 97 % Ana Camejo APRN.FAMILY SERVICES SPECIALIST Work Phone: [facility] 10-08-2024 10:08-0500 Systolic blood pressure 110 mm[Hg] Ana Camejo MEDICAL BILLING SUPERVISOR.FAMILY SERVICES SPECIALIST Work Phone: [facility] 06-04-2024 15:38-0400 Body mass index (BMI) [Ratio] 37.59 kg/m2 Monica Gerard MEDICAL BILLING SUPERVISOR.FAMILY SERVICES SPECIALIST Work Phone: [facility] 06-04-2024 15:38-0400 Body weight 108.86 kg Monica Gerard MEDICAL BILLING SUPERVISOR.FAMILY SERVICES SPECIALIST Work Phone: [facility] 06-04-2024 15:38-0400 Diastolic blood pressure 72 mm[Hg] Monica Gerard MEDICAL BILLING SUPERVISOR.FAMILY SERVICES SPECIALIST Work Phone: [facility] 06-04-2024 15:38-0400 Heart rate 87 /min Monica Gerard MEDICAL BILLING SUPERVISOR.FAMILY SERVICES SPECIALIST Work Phone: [facility] 06-04-2024 15:38-0400 Respiratory rate 16 /min Monica Gerard MEDICAL BILLING SUPERVISOR.FAMILY SERVICES SPECIALIST Work Phone: [facility] 06-04-2024 15:38-0400 SaO2% (BldA) [Mass fraction] 99 % Monica Gerard MEDICAL BILLING SUPERVISOR.FAMILY SERVICES SPECIALIST Work Phone: [facility] 06-04-2024 15:38-0400 Systolic blood pressure 126 mm[Hg] Monica Gerard MEDICAL BILLING SUPERVISOR.FAMILY SERVICES SPECIALIST Work Phone: [facility] 12-11-2023 08:33-0400 Body height 160.02 cm PA NA Collins PA Work Phone: [facility] 12-11-2023 08:33-0400 Body mass index (BMI) [Ratio] 43.4 kg/m2 PA NA Collins PA Work Phone: [facility] 12-11-2023 08:33-0400 Body weight 111.24 kg PA NA Collins PA Work Phone: [facility] 12-11-2023 08:33-0400 Diastolic blood pressure 78 mm[Hg] PA NA Collins PA Work Phone: [facility] 12-11-2023 08:33-0400 Systolic blood pressure 120 mm[Hg] PA NA Collins PA Work Phone: [facility] 12-04-2023 12:52-0400 Body weight 111.13 kg NA Collins PA-C Work Phone: [facility] 12-04-2023 12:52-0400 Diastolic blood pressure 60 mm[Hg] NA Collins PA-C Work Phone: [facility] 12-04-2023 12:52-0400 Heart rate 85 /min NA Collins PA-C Work Phone: [facility] 12-04-2023 12:52-0400 Respiratory rate 16 /min NA Collins PA-C Work Phone: [facility] 12-04-2023 12:52-0400 SaO2% (BldA) [Mass fraction] 98 % NA Collins PA-C Work Phone: [facility] 12-04-2023 12:52-0400 Systolic blood pressure 104 mm[Hg] NA Collins PA-C Work Phone: [facility] 11-16-2023 12:01-0400 Body mass index (BMI) [Ratio] 43.2 kg/m2 PA NA Collins PA Work Phone: [facility] 11-16-2023 12:01-0400 Body weight 110.67 kg PA NA Collins PA Work Phone: [facility] 11-16-2023 12:01-0400 Diastolic blood pressure 75 mm[Hg] PA NA Collins PA Work Phone: [facility] 11-16-2023 12:01-0400 Systolic blood pressure 116 mm[Hg] PA NA Collins PA Work Phone: [facility] 10-16-2023 14:22-0500 Body mass index (BMI) [Ratio] 42.5 kg/m2 PA NA Collins PA Work Phone: [facility] 10-16-2023 14:22-0500 Body weight 108.91 kg PA NA Collins PA Work Phone: [facility] 10-16-2023 14:22-0500 Diastolic blood pressure 72 mm[Hg] PA NA Collins PA Work Phone: [facility] 10-16-2023 14:22-0500 Systolic blood pressure 124 mm[Hg] PA NA Collins PA Work Phone: [facility] 09-19-2023 14:58-0500 Body height 160.02 cm PA NA Collins PA Work Phone: [facility] 09-19-2023 14:58-0500 Body mass index (BMI) [Ratio] 41.6 kg/m2 PA NA Collins PA Work Phone: [facility] 09-19-2023 14:58-0500 Diastolic blood pressure 75 mm[Hg] PA NA Collins PA Work Phone: [facility] 09-19-2023 14:58-0500 Systolic blood pressure 114 mm[Hg] PA NA Collins PA Work Phone: [facility] 09-19-2023 14:42-0500 Body weight 106.7 kg PA NA Collins PA Work Phone: [facility] 08-24-2023 13:18-0500 Body height 160.02 cm PA NA Collins PA Work Phone: [facility] 08-24-2023 13:17-0500 Body mass index (BMI) [Ratio] 42.7 kg/m2 PA NA Collins PA Work Phone: [facility] 08-24-2023 13:17-0500 Body weight 109.48 kg PA NA Collins PA Work Phone: [facility] 08-24-2023 13:17-0500 Diastolic blood pressure 69 mm[Hg] PA NA Collins PA Work Phone: [facility] 08-24-2023 13:17-0500 Systolic blood pressure 118 mm[Hg] PA NA Collins PA Work Phone: [facility] 04-09-2023 09:28-0400 Body temperature 98.49 [degF] Zelda Sonya MEDICAL BILLING SUPERVISOR.FAMILY SERVICES SPECIALIST Work Phone: [facility] 04-09-2023 09:28-0400 Body weight 108.05 kg Zelda Sonya MEDICAL BILLING SUPERVISOR.FAMILY SERVICES SPECIALIST Work Phone: [facility] 04-09-2023 09:28-0400 Diastolic blood pressure 82 mm[Hg] Zelda Sonya MEDICAL BILLING SUPERVISOR.FAMILY SERVICES SPECIALIST Work Phone: [facility] 04-09-2023 09:28-0400 Heart rate 100 /min Zelda Sonya MEDICAL BILLING SUPERVISOR.FAMILY SERVICES SPECIALIST Work Phone: [facility] 04-09-2023 09:28-0400 Respiratory rate 21 /min Zelda Sonya MEDICAL BILLING SUPERVISOR.FAMILY SERVICES SPECIALIST Work Phone: [facility] 04-09-2023 09:28-0400 SaO2% (BldA) [Mass fraction] 99 % Zelda Sonya MEDICAL BILLING SUPERVISOR.FAMILY SERVICES SPECIALIST Work Phone: [facility] 04-09-2023 09:28-0400 Systolic blood pressure 122 mm[Hg] Zelda Sonya MEDICAL BILLING SUPERVISOR.FAMILY SERVICES SPECIALIST Work Phone: [facility] 02-28-2023 07:24-0400 Body temperature 97.81 [degF] Magy Praisler-Wood MEDICAL BILLING SUPERVISOR.FAMILY SERVICES SPECIALIST Work Phone: [facility] 02-28-2023 07:24-0400 Body weight 108.86 kg Magy Praisler-Wood MEDICAL BILLING SUPERVISOR.FAMILY SERVICES SPECIALIST Work Phone: [facility] 02-28-2023 07:24-0400 Diastolic blood pressure 74 mm[Hg] Magy Praisler-Wood MEDICAL BILLING SUPERVISOR.FAMILY SERVICES SPECIALIST Work Phone: [facility] 02-28-2023 07:24-0400 Heart rate 88 /min Magy Praisler-Wood MEDICAL BILLING SUPERVISOR.FAMILY SERVICES SPECIALIST Work Phone: [facility] 02-28-2023 07:24-0400 Respiratory rate 16 /min Magy Praisler-Wood MEDICAL BILLING SUPERVISOR.FAMILY SERVICES SPECIALIST Work Phone: [facility] 02-28-2023 07:24-0400 SaO2% (BldA) [Mass fraction] 98 % Magy Praisler-Wood MEDICAL BILLING SUPERVISOR.FAMILY SERVICES SPECIALIST Work Phone: [facility] 02-28-2023 07:24-0400 Systolic blood pressure 122 mm[Hg] Magy Praisler-Wood MEDICAL BILLING SUPERVISOR.FAMILY SERVICES SPECIALIST Work Phone: [facility] 01-13-2022 12:39-0400 Body temperature 98.6 [degF] Zelda Sonya MEDICAL BILLING SUPERVISOR.FAMILY SERVICES SPECIALIST Work Phone: [facility] 01-13-2022 12:39-0400 Body weight 113.4 kg Zelda Hassan MEDICAL BILLING SUPERVISOR.FAMILY SERVICES SPECIALIST Work Phone: [facility] 01-13-2022 12:39-0400 Diastolic blood pressure 66 mm[Hg] Zelda Sonya MEDICAL BILLING SUPERVISOR.FAMILY SERVICES SPECIALIST Work Phone: [facility] 01-13-2022 12:39-0400 Heart rate 102 /min Zelda Sonya MEDICAL BILLING SUPERVISOR.FAMILY SERVICES SPECIALIST Work Phone: [facility] 01-13-2022 12:39-0400 Respiratory rate 16 /min Zelda Sonya MEDICAL BILLING SUPERVISOR.FAMILY SERVICES SPECIALIST Work Phone: [facility] 01-13-2022 12:39-0400 SaO2% (BldA) [Mass fraction] 97 % Zelda Hassan MEDICAL BILLING SUPERVISOR.FAMILY SERVICES SPECIALIST Work Phone: [facility] 01-13-2022 12:39-0400 Systolic blood pressure 118 mm[Hg] Zelda Sonya MEDICAL BILLING SUPERVISOR.FAMILY SERVICES SPECIALIST Work Phone: [facility] Encounters Encounter Date Encounter Type Care Provider Facility Start: 05-14-2025 End: 05-14-2025 Patient encounter procedure Adiel Hernández APRN.FAMILY SERVICES SPECIALIST Work Phone: [facility] Comment on above: Nausea and vomiting, unspecified vomiting type (Primary Dx); Viral illness Start: 05-14-2025 End: 05-15-2025 ambulatory ADIEL HERNÁNDEZ Facility:[facility] Start: 04-17-2025 End: 04-17-2025 ambulatory Zebulun Beam [employer] Work Phone: -[facility] Start: 04-17-2025 End: 04-17-2025 Patient encounter procedure Zebulun Beam [employer] -[facility] Start: 04-17-2025 End: 04-17-2025 ambulatory Zebulun Beam Facility:[facility] Start: 03-01-2025 Non-patient / Non-visit Dr. Mark Childress DO [facility] Work Phone: Start: 02-28-2025 End: 03-01-2025 Evaluation and management of inpatient Dr. Norma Byrnes MD -Medical Surgical 3 Work Phone: Start: 02-28-2025 ambulatory Norma Byrnes Facility :[facility] Start: 02-28-2025 Non-patient / Non-visit Dr. Norma Byrnes MD -[facility] Work Phone: Start: 02-27-2025 End: 02-27-[address] Norman Kaplan DO Work Phone: -[facility] Start: 02-27-2025 End: 02-27-2025 Patient encounter procedure Zejake Chavez [employer] -[facility] Start: 02-26-2025 End: 02-27-[address] Norman Kaplan DO Work Phone: -[facility] Start: 02-26-2025 End: 02-26-2025 Patient encounter procedure Zejake Chavez [employer] -[facility] Start: 02-25-2025 End: 02-26-2025 ambulatory Aparna Chavez Facility:[id number] Start: 01-31-2025 End: 01-31-2025 Office outpatient visit 15 minutes Adam Carbajal APRN.FAMILY SERVICES SPECIALIST Work Phone: [facility] Comment on above: Hand foot and mouth disease (Primary Dx) Start: 01-31-2025 End: 01-31-2025 ambulatory ADAM CARBAJAL Facility:[facility] Start: 01-19-2025 End: 01-20-2025 Refill Monica Gerard MEDICAL BILLING SUPERVISOR.FAMILY SERVICES SPECIALIST Work Phone: [facility] Comment on above: Refill Request Start: 12-08-2024 End: 12-08-2024 Emergency department patient visit Dr. Norman Kaplan DO Work Phone: -Emergency Department Work Phone: Start: 12-08-2024 End: 12-08-2024 ambulatory ANA CAMEJO Facility:[facility] Start: 12-08-2024 End: 12-08-2024 Patient encounter procedure Temitope Navarrete APRN.FAMILY SERVICES SPECIALIST Work Phone: [facility] Comment on above: Headache, unspecifie d headache type (Primary Dx); Vomiting and diarrhea Start: 10-08-2024 End: 10-08-2024 Subsequent hospital visit by physician [facility] Work Phone: Radiology Comment on above: Acute cough [R05.1] Start: 10-08-2024 End: 10-08-2024 ambulatory [facility] Facility:[facility] Start: 10-08-2024 End: 10-08-2024 Patient encounter procedure Ana Camejo APRN.FAMILY SERVICES SPECIALIST Work Phone: [facility] Comment on above: Community acquired p neumonia, unspecified laterality (Primary Dx); Acute cough Start: 10-03-2024 End: 10-04-2024 Telephone encounter Monica Gerard APRN.AIMEE Work Phone: [facility] Comment on above: FMLA Paperwork (Due by 10/05/24) Start: 06-04-2024 End: 06-04-2024 Office outpatient visit 25 minutes Monica Gerard APRN.AIMEE Work Phone: [facility] Comment on above: Adjustment reaction with anxiety and depression (Primary Dx); Need for influenza vaccination; Gastritis with hemorrhage, unspecified chronicity, unspecified gastritis type; Hypothyroidism, acquired Start: 06-04-2024 End: 06-04-2024 ambulatory [facility] Facility:[facility] Start: 05-10-2024 End: 05-10-2024 ambulatory Estrada PAYNE Facility:[facility] Start: 03-14-2024 End: 03-14-2024 ambulatory N[facility] Start: 03-13-2024 Telephone encounter Estrada Collins PA-C Work Phone: [facility] Comment on above: Patient Question Start: 02-15-2024 End: 02-15-2024 ambulatory MARK BROWNING [facility] Start: 01-18-2024 End: 01-18-2024 ambulatory MARK BROWNING COLLINS [facility] Start: 12-21-2023 End: 12-21-2023 ambulatory MARK BROWNING COLLINS [facility] Start: 12-11-2023 End: 12-11-2023 ambulatory KERRY PAYNE Work Phone: [facility] Work Phone: Start: 12-11-2023 End: 12-11-2023 Patient encounter procedure KERRY PAYNE Work Phone: [facility] Work Phone: Start: 12-04-2023 End: 12-04-2023 Patient encounter procedure Estrada Collins PA-C Work Phone: [facility] Comment on above: Female infertility a ssociated with anovulation (Primary Dx); PCOS (polycystic ovarian syndrome); Passive suicidal ideations; ABHILASH (generalized anxiety disorder); Insomnia, unspecified type; Adjustment reaction with anxiety and depression; Obesity, Class III, BMI >= 40; Chronic left hip pain; Vitamin D deficiency Start: 11-20-2023 End: 11-20-2023 ambulatory CAREY NASSAR [facility] Start: 11-16-2023 End: 11-16-2023 Patient encounter procedure KERRY PAYNE Work Phone: [facility] Work Phone: Start: 11-07-2023 End: 11-07-2023 ambulatory [facility] Start: 10-16-2023 End: 10-16-2023 Patient encounter procedure KERRY PAYNE Work Phone: [facility] Work Phone: Start: 09-19-2023 End: 09-19-2023 Patient encounter procedure KERRY Collins PA Work Phone: [facility] Work Phone: Start: 09-18-2023 End: 09-18-2023 ambulatory KERRY PAYNE Work Phone: [facility] Work Phone: Start: 09-18-2023 End: 09-18-2023 Patient encounter procedure KERRY PAYNE Work Phone: [facility] Work Phone: Start: 08-24-2023 End: 08-24-2023 ambulatory PA Estrada PAYNE Work Phone: [facility] Work Phone: Start: 08-24-2023 End: 08-24-2023 Patient encounter procedure KERRY PAYNE Work Phone: [facility], Specimen Work Phone: Start: 08-24-2023 End: 08-24-2023 Patient encounter procedure KERRY PAYNE Work Phone: [facility] Work Phone: Start: 08-15-2023 End: 08-15-2023 ambulatory [facility] Work Phone: Start: 08-15-2023 End: 08-15-2023 [facility] Start: 08-11-2023 Telephone encounter Estrada Collins PA-C Work Phone: [facility] Comment on above: Patient Question Start: 07-21-2023 Telephone encounter Estrada Collins PA-C Work Phone: [facility] Comment on above: requesting lab order Start: 04-09-2023 End: 04-09-2023 Patient encounter procedure Zelda Sonya MULTANI.FAMILY SERVICES SPECIALIST Work Phone: [facility] Comment on above: URI with cough and c ongestion (Primary Dx); Wheezing Start: 03-01-2023 Telephone encounter Mauro PAYNE Work Phone: [facility] Comment on above: Results Start: 02-28-2023 End: 02-28-2023 Patient encounter procedure Magy BlissClyde MULTANI.FAMILY SERVICES SPECIALIST Work Phone: [facility] Comment on above: Pelvic pressure in [place] (Primary Dx) Start: 02-03-2023 Telephone encounter Jony Lawson MD Work Phone: [facility] Comment on above: Results Start: 12-19-2022 End: 12-19-2022 ambulatory Jony Lawson MD Work Phone: [facility] Comment on above: Nausea (Primary Dx); Gastritis with hemorrhage, unspecified chronicity, unspecified gastritis type Start: 12-19-2022 End: 12-19-2022 Telemedicine consultation with patient Jony Lawson MD Work Phone: [facility] Start: 12-13-2022 Refill Esrtada Marx on PA-C Work Phone: [facility] Comment on above: Refill Request Start: 07-29-2022 End: 07-29-2022 ambulatory [facility] Work Phone: Start: 07-29-2022 End: 07-29-2022 Patient encounter procedure [facility] Start: 04-21-2022 Telephone encounter Estrada Collins PA-C Work Phone: [facility] Comment on above: Forms (FMLA) Start: 01-13-2022 ambulatory Estrada Marx on PA-C Work Phone: [facility] Comment on above: Hives Start: 01-13-2022 End: 01-13-2022 Patient encounter procedure Zelda Sonya MULTANI.FAMILY SERVICES SPECIALIST Work Phone: [facility] Comment on above: Rash (Primary Dx); Redness of skin Start: 12-09-2021 ambulatory Estrada Marx on PA-C Work Phone: [facility] Comment on above: Increase of medicati on Start: 01-21-2021 Patient encounter status [facility] Start: 08-21-2020 End: 08-21-2020 Subsequent hospital visit by physician [facility] Work Phone: Radiology Comment on above: Hip pain [M25.559] Procedures Date Procedure Procedure Detail Performing Clinician Start: 03-01-[address] Norman Kaplan DO Work Phone: Start: 02-28-[address] Norman tadeo DO Work Phone: Start: 02-28-[address] Norman Kaplan DO Work Phone: Start: 02-28-2025 Blood culture Zebulun Beam FERTILIZER MIXER-C Work Phone: Start: 02-28-[address] Norman Kaplan DO Work Phone: Start: 02-28-2025 Microbial culture, routine Zebulun Beam FERTILIZER MIXER-C Work Phone: Start: 02-27-2025 Thyroglobulin antibody measurement Zebulun Beam FERTILIZER MIXER-C Work Phone: Comment on above: Thyroglobulin Antibody measured by Beckestrada an CoulterMethodologyIt should be noted that the presence of thyroglobulinantibodies may not be pathogenic nor diagnostic, especiallyat very low levels. The assay tennis coach has found thatfour percent of individuals without evidence of thyroiddisease or autoimmunity will have positive TgAb levels upto 4 IU/mL.Performed at: [address] [id number] Director: Neri Mitchell PhD, Phone: [phone] Start: 02-26-2025 Vitamin D, 25-hydroxy measurement Dr. Norman Kaplan DO Work Phone: Comment on above: Vitamin D StatusDeficiency: <20 ng/mL (5 0nmol/L)Insufficiency: 20-30 ng/mL (50-75 nmol/L)Sufficiency: 30-100 ng/mL (75-250 nmol/L)Toxicity: >100 ng/mL (>250 nmol/L) Start: 12-08-2024 SARS-CoV-2, Influenza & RSV (PCR) Dr. Norman Kaplan DO Work Phone: Start: 12-08-2024 Urnls dip stick/tablet reagent auto microscopy Dr. Norman Kaplan DO Work Phone: Start: 12-08-2024 X-ray of chest, PA and lateral views Dr. Norman Kaplan DO Work Phone: Start: 12-08-[address] Norman Kaplan DO Work Phone: Start: 12-08-2024 INFLUENZA A&B MOLECULAR (POC) Temitope Navarrete APRN.FAMILY SERVICES SPECIALIST Work Phone: Start: 10-08-2024 Radiologic exam chest 2 views Ana delgado MEDICAL BILLING SUPERVISOR.FAMILY SERVICES SPECIALIST Work Phone: Start: 08-24-2023 Urine culture KERRY PAYNE Work Phone: Start: 02-28-2023 End: 02-28-2023 Urnls dip stick/tablet rgnt auto w/o microscopy Magy Stein MEDICAL BILLING SUPERVISOR.FAMILY SERVICES SPECIALIST Work Phone: Start: 11-16-2021 Adult depression screening [...] RSV Vaccine (1 - 1-dose 60+ series) [facility] Start: 01-22-2034 Urine microalbumin profile DTa P,Tdap,Td Vaccine (3 - Td or Tdap) [facility] Start: 05-21-2028 Urine microalbumin profile [facility] Start: 01-21-2026 HPV TESTING HPV TESTING [facility] Start: 01-21-2026 Screening for malign ant neoplasm of cervix HPV Testing [facility] Start: 06-04-2025 Annual PCP Team Pretzel Packer venkatesh Disease Visit Annual PCP Team Chronic Disease Visit [facility] Start: 05-05-2025 Influenza vaccination Influenza Vacc ine (#1) [facility] Start: 03-01-2025 Patient discharge [facility] Start: 03-01-2025 Assessment of risk o f venous thromboembolism [facility] Start: 03-01-2025 Elevation of affecte d extremity [facility] Start: 03-01-2025 Incentive spirometry [facility] Start: 03-01-2025 Inhalation therapy procedure [facility] Start: 03-01-2025 Insertion of cathete r into peripheral vein [facility] Start: 03-01-2025 Introduction of urin jadon catheter [facility] Start: 03-01-2025 Measuring intake and output [facility] Start: 03-01-2025 Oxygen therapy [facility] Start: 03-01-2025 Providing care accor ding to standard [facility] Start: 03-01-2025 Provision of activit y privileges [facility] Start: 03-01-2025 Wound care [facility] Start: 03-01-2025 [facility] Start: 03-01-2025 End: 03-01-2025 Following clinical pathway protocol [facility] Start: 02-28-2025 Verification routine [facility] Start: 02-28-2025 Admission procedure [facility] Start: 02-28-2025 End: 03-01-2025 [facility] Start: 02-28-2025 Bacteria identified in Blood by Culture Blood Culture [facility] Start: 02-28-2025 Blood culture Blood Culture [facility] Start: 02-28-2025 Microbial culture, routine Wound Cul ture [facility] Start: 02-28-2025 Microscopic observat ion [Identifier] in Unspecified specimen by Gram stain [facility] Start: 02-28-2025 Wound Culture Wound Culture [facility] Start: 02-27-2025 [facility] Start: 12-08-2024 [facility] Start: 06-04-2024 End: 06-04-2024 Patient encounter procedure 06/04/2024 3:40 PM EDT Office Visit [facility] [address] [place] [address] Estrada Collins PA-C [address] [place] [address] 6 month follow up [facility] Comment on above: 6 month follow up Start: 05-05-2024 Covid-19 Vaccine ( season) Covid-19 Vaccine ( season) [facility] Start: 05-05-2024 Influenza vaccination [facility] Start: 12-11-2023 Antithrombin III ass ay, functional [facility] Start: 12-11-2023 Beta 2 glycoprotein 1 Ab IgA and IgG and IgM panel - Serum [facility] Start: 12-11-2023 Cardiolipin IgG and IgM panel - Serum [facility] Start: 12-11-2023 Factor V Leiden genotype [facility] Start: 12-11-2023 Lupus anticoagulant assay [facility] Start: 12-11-2023 Plasma total protein S measurement [facility] Start: 12-11-2023 Procedure [facility] Start: 12-11-2023 Protein C, functiona l assay [facility] Start: 09-04-2023 Behavioral Health Screening Behavioral Health Screening [facility] Start: 09-04-2023 Depression Assessment Depression Ass essment [facility] Start: 07-21-2023 End: 10-20-2023 Choriogonadotropin.beta subunit [Units/volume] in Serum or Plasma HCG QUANTITATIVE Lab Routine Positive test Expected: 07/21/2023, Expires: 10/20/2023 [facility] Work Phone: Comment on above: Expected: 07/21/2023 , Expires: 10/20/2023 Start: 05-30-2023 PAP TESTING PAP TESTING [facility] Start: 05-30-2023 Screening for malign ant neoplasm of cervix Pap Testing [facility] Start: 05-05-2023 Covid-19 Vaccine ( season) Covid-19 Vaccine () [facility] Start: 05-05-2023 Influenza vaccination [facility] Start: 03-17-2023 End: 02-03-2024 25-hydroxyvitamin D3 [Mass/volume] in Serum or Plasma VITAMIN D 25 HYDROXY Lab Routine Vitamin D deficiency Expected: 03/17/2023, Expires: 02/03/2024 [facility] Work Phone: Comment on above: Expected: 03/17/2023 , Expires: 02/03/2024 Start: 03-17-2023 End: 05-17-2023 Parathyrin.intact [Mass/volume] in Serum or Plasma PTH INTACT BLD Lab Routine Vitamin D deficiency Expected: 03/17/2023, Expires: 05/17/2023 [facility] Work Phone: Comment on above: Expected: 03/17/2023 , Expires: 05/17/2023 Start: 11-16-2022 Adult depression scr eening assessment DEPRESSION SCREENING [facility] Start: 09-04-2022 DEPRESSION ASSESSMENT DEPRESSION ASS ESSMENT [facility] Start: 05-05-2022 Influenza vaccination [facility] Start: 02-12-2022 COVID-19 VACCINE (3 - Booster for Pfizer series) COVID-19 VACCINE (3 - Booster for Pfizer series) [facility] Start: 01-29-2022 HEPATITIS C SCRE[facility] Comment on above: Postponed from 08/17 (Declined at this time) Start: 01-29-2022 HIV SCREENING HIV SCREENING [facility] Comment on above: Postponed from 08/17 (Declined at this time) Start: 11-09-2021 COVID-19 VACCINE (3 - Booster for Pfizer series) COVID-19 VACCINE (3 - Booster for Pfizer series) [facility] Start: 11-09-2021 COVID-19 VACCINE (3 - Pfizer series) COVID-19 VACCINE (3 - Pfizer series) [facility] Start: 09-04-2021 DEPRESSION ASSESSMENT DEPRESSION ASS ESSMENT [facility] Start: 05-30-2021 Screening for malign ant neoplasm of cervix Cervical Cancer Screening [facility] Start: 2016 HPV Vaccine (1 - 3-d ose SCDM series) HPV Vaccine (1 - 3-dose SCDM series) [facility] Start: 2008 Hepatitis B Vaccine (1 of 3 - 19+ 3-dose series) Hepatitis B Vaccine (1 of 3 - 19+ 3-dose series) [facility] Start: 2007 Depression Screening Depression Scre ening [facility] Start: 2007 HEPATITIS C SCREENING HEPATITIS C [facility] Start: 2007 Hepatitis C screening Hepatitis C [facility] Start: 2007 HIV SCREENING HIV SCREENING [facility] Start: 2007 HIV screening HIV Screening [facility] Start: 1989 HEPATITIS B (1 of 3 - 3-dose series) HEPATITIS B (1 of 3 - 3-dose series) [facility] Start: 1989 Hepatitis B Vaccine (1 of 3 - 3-dose series) Hepatitis B Vaccine (1 of 3 - 3-dose series) [facility] Alanine aminotransfe rase [Enzymatic activity/volume] in Serum or Plasma [facility] Albumin [Mass/volume ] in Serum or Plasma [facility] Alkaline phosphatase [Enzymatic activity/volume] in Serum or Plasma [facility] Anion gap in Serum o r Plasma [facility] Bacteria identified in Urine by Culture URINE CULTURE Microbiology Routine Pelvic pressure in female Ordered: 02/28/2023 [facility] Work Phone: Comment on above: Ordered: 02/28/2023 Beta 2 glycoprotein 1 IgA Ab [Presence] in Serum [facility] Beta 2 glycoprotein 1 IgG Ab [Presence] in Serum [facility] Beta 2 glycoprotein 1 IgM Ab [Presence] in Serum [facility] Bilirubin, total measurement [facility] BUN/Creatinine ratio [facility] Calcium [Mass/volume ] in Serum or Plasma [facility] Carbon dioxide, tota l [Moles/volume] in Central venous blood [facility] Cardiolipin IgG Ab [Units/volume] in Serum or Plasma [facility] Cardiolipin IgM Ab [Units/volume] in Serum or Plasma [facility] Creatinine [Mass/vol ume] in Serum or Plasma [facility] Erythrocyte mean corpuscular volume determination [facility] F5 gene mutations fo und [Identifier] in Blood or Tissue by Molecular genetics method Nominal [facility] Glucose [Mass/volume ] in Serum or Plasma [facility] Hematocrit [Volume Fraction] of Blood [facility] Hemoglobin [Mass/vol ume] in Blood [facility] Leukocytes [#/volume ] in Blood [facility] Lupus anticoagulant screening test [facility] Mean corpuscular hemoglobin concentration determination [facility] Mean corpuscular hemoglobin determination [facility] Measurement of renal function [facility] Neutrophil count [facility] Neutrophil percent differential count [facility] Partial thromboplast in time ratio [facility] Patient Education ED URI, Viral, No Abx (Adult) [facility] Work Phone: Patient referral [facility] Work Phone: Platelets [#/volume] in Blood [facility] Potassium measurement [facility] Procalcitonin [Mass/volume] in Serum or Plasma by Immunoassay [facility] Protein C actual/nor mal in Platelet poor plasma by Chromogenic method [facility] Protein C Ag actual/ normal in Platelet poor plasma by Immunoassay [facility] Protein S assay [facility] Protein S Free Ag actual/normal in Platelet poor plasma by Immunoassay [facility] Protein S, functiona l assay [facility] Red blood cell count [facility] Red cell distributio n width determination [facility] Serum chloride measurement [facility] Sodium measurement [facility] T4 free measurement [facility] Thrombin time [facility] Thyroglobulin antibo dy measurement [facility] Thyroid stimulating hormone measurement [facility] Thyroperoxidase Ab [Units/volume] in Serum or Plasma [facility] Total protein measurement [facility] Urea nitrogen [Mass/volume] in Serum or Plasma [facility] Wound microscopy, cu lture and sensitivities [facility] Immunizations Immunization Date Immunization Notes Care Provider Corina zamarripa 06-04-2024 influenza, seasonal, injectable Monica Gerard MEDICAL BILLING SUPERVISOR.FAMILY SERVICES SPECIALIST Work Phone: [facility] 06-04-2024 influenza virus vaccine, unspecified formulation Adiel Hernández MEDICAL BILLING SUPERVISOR.FAMILY SERVICES SPECIALIST Work Phone: [facility] 01-23-2024 tetanus toxoid, reduced diphtheria toxoid, and acellular pertussis vaccine, adsorbed Dr. Norman Kaplan DO Work Phone: [facility] 11-29-2022 measles, mumps and rubella virus vaccine Adam Carbajal MEDICAL BILLING SUPERVISOR.FAMILY SERVICES SPECIALIST Work Phone: [facility] 05-21-2018 tetanus toxoid, reduced diphtheria toxoid, and acellular pertussis vaccine, adsorbed SMOOTH Collins PA-C Work Phone: [facility] Work Phone: 08-25-2016 influenza virus vaccine, unspecified formulation SMOOTH Collins PA-C Work Phone: [facility] Payers Date Payer Category Payer Unknown [id number] 2024 Self-pay [id number] 2022 Private Health Insurance [id number] 2021 Unknown CARL GREA PEACOCKCarlos PPO [id number] 2021-Present [phone] [address] [place] [address] PPO [id number] 2019 Unknown [id number] 2010 Private Health Insurance [id number] 1989 Unknown [id number] 47 1989 Unknown [id number] 1989 Unknown [id number] 47 1989 Unknown [id number] 1989 Unknown [id number] 47 1989 Unknown [id number]. 479 Private Health Insurance [id number] Unknown [id number] Unknown Jonny RAMIREZ [id number] Unknown [id number] Unknown [id number] 462 Unknown [id number]. 462 Unknown [id number]. 462 Unknown [id number]. 462 Unknown [id number]. 462 Unknown [id number]. 462 Unknown [id number]. 462 Unknown [id number] 462 Social History Date Type Detail Facility Start: 12-12-2011 End: 02-28-2023 Tobacco smoking status NHIS Never smoked tobacco [facility] Start: 12-12-2011 End: 02-28-2023 Tobacco use and exposure Smokeless tobacco non-user [facility] Start: 11-16-2021 End: 05-14-2025 Alcohol intake Current drinker of alcohol (finding) [facility] Start: 11-04-2019 End: 12-19-2022 History SDOH Alcohol Frequency 2 [facility] Start: 11-04-2019 End: 12-19-2022 History SDOH Alcohol Std Drinks 1 [facility] Start: 05-30-2018 History SDOH Alcohol Comment rarely [facility] Start: 11-04-2019 End: 12-19-2022 History SDOH Social Connections Phone 5 [facility] Start: 11-04-2019 End: 12-19-2022 History SDOH Social Connections Get Together 3 [facility] Start: 11-04-2019 End: 12-19-2022 History SDOH Financial 4 [facility] Start: 03-26-2020 Education 10 [facility] Start: 1990 Sex Assigned At Female [facility] Start: 07-22-2020 End: 11-16-2021 Exposure to SARS-CoV-2 (event) Not sure [facility] Start: 02-14-2022 End: 08-15-2023 Tobacco smoking status VAIS Unknown if ever smoked [facility] Start: 12-19-2022 End: 06-02-2023 History of Social function [facility] Start: 12-19-2022 End: 06-02-2023 Social connection and isolation panel [facility] Do you belong to any clubs or organizations such as pentecostalism groups, unions, fraternal or athletic groups, or school groups? Yes [facility] Are you now , , , , never or living with a partner? [facility] How often to you hav e a drink containing alcohol? 2-4 times a month [facility] How many standard drinks containing alcohol do you have on a typical day? 1 or 2 [facility] How often do you hav e 6 or more drinks on 1 occasion? Never [facility] How hard is it for y ou to pay for the very basics like food, housing, medical care, and heating Not very hard [facility] Start: 08-05-2012 Adult Depression Screening Assessment 2 [facility] Do you feel stress - tense, restless, nervous, or anxious, or unable to sleep at night because your mind is troubled all the time - these days [OSQ] To some extent [facility] (I/We) worried miguelito er (my/our) food would run out before (I/we) got money to buy more. Sometimes true [facility] The food that (I/we) bought just didn't last, and (I/we) didn't have money to get more. Never true [facility] In the past 12 month s, was there a time when you were not able to pay the mortgage or rent on time? No [facility] Start: 11-12-2021 Gender identity Identifies as female gender (finding) [facility] Start: 11-12-2021 Sexual orientation Heterosexual (ricky smith) [facility] How often do you hav e 6 or more drinks on 1 occasion? Less than monthly [facility] Do you feel stress - tense, restless, nervous, or anxious, or unable to sleep at night because your mind is troubled all the time - these days [OSQ] Very much [facility] Start: 12-08-2024 Sex Female (finding) [facility] NEGATED: Highlighted row Not [facility] Functional Status Date Assessment Result Facility 03-01-2025 Functional status Ambulates;Jose r;Bathroom Privilege [facility] Work Phone: Mental Status Date Assessment Result Facility 03-01-2025 Cognitive function Voice/Name [facility] Work Phone: 12-08-2024 Cognitive function Level Of Cons ciousness Awake;Alert;Appropriate [facility] Work Phone: Clinical Notes 08-21-2020 to 05-14-2025 Adiel Hernández APRN.FAMILY SERVICES SPECIALIST - 05/14/2025 7:19 PM EDT Note Date & Type Note Facility 05-14-2025 Note HNO ID: [id number] Author: ADIEL HERNÁNDEZ APRN.FAMILY SERVICES SPECIALIST Service: ? Author Type: Nurse Practitioner Type: Progress Notes Filed: 05/14/2025 19:28 Note Text: [facility]ENT CARE VIVIANA Michel is a 34 year old female. Patient presents with: Dizziness: Vomiting, nausea, upset stomach x 1 day The history is provided by the patient. Dizziness This is a new problem. The current episode started today. The neurological problem developed suddenly. The problem has been gradually worsening since onset. There was no focality noted. Associated symptoms include dizziness, nausea and vomiting. Past treatments include nothing. The treatment provided no relief. Review of Systems Gastrointestinal: Positive for nausea and vomiting. Neurological: Positive for dizziness. Objective BP 104/78 Pulse 85 Temp 36.6 ?C (97.8 ?F) Resp 20 Wt 106.5 kg (234 lb 12.6 oz) LMP 05/29/2023 SpO2 98% Yes BMI 36.77 kg/m? Physical Exam Constitutional: General: She is not in acute distress. Appearance: She is ill-appearing. She is not toxic-appearing. Cardiovascular: Rate and Rhythm: Normal rate and regular rhythm. Abdominal: Palpations: Abdomen is soft. Tenderness: There is no abdominal tenderness. Comments: BS hypoactive Neurological: Mental Status: She is alert. {ASSESSMENT/PLAN: 1. Nausea and vomiting, unspecified vomiting type - ICD9: 787.01, ICD10: R11.2 (primary diagnosis) - ONDANSETRON 4 MG DISINTEGRATING TABLET 2. Viral illness - ICD9: 079.99, ICD10: B34.9 - Discussed viral etiology and rationale for treatment. - Symptomatic treatment with prn analgesia - Supportive care with fluids and rest. - ONDANSETRON 4 MG DISINTEGRATING TABLET Adiel Hernández APRN.FAMILY SERVICES SPECIALIST Differential Diagnoses - Viral gastroenteritis is more likely for the following reason(s): suggested by HANDP Disposition The patient was discharged. Procedures [facility] 05-14-2025 History of Present illness Narrative [facility] Bro[facility] Mildred Michel is a 34 year old female. Patient presents with: Dizziness: Vomiting, nausea, upset stomach x 1 day The history is provided by the patient. Dizziness This is a new problem. The current episode started today. The neurological problem developed suddenly. The problem has been gradually worsening since onset. There was no focality noted. Associated symptoms include dizziness, nausea and vomiting. Past treatments include nothing. The treatment provided no relief. Review of Systems Gastrointestinal: Positive for nausea and vomiting. Neurological: Positive for dizziness. Objective BP 104/78 Pulse 85 Temp 36.6 C (97.8 F) Resp 20 Wt 106.5 kg (234 lb 12.6 oz) LMP 05/29/2023 SpO2 98% Yes BMI 36.77 kg/m Physical Exam Constitutional: General: She is not in acute distress. Appearance: She is ill-appearing. She is not toxic-appearing. Cardiovascular: Rate and Rhythm: Normal rate and regular rhythm. Abdominal: Palpations: Abdomen is soft. Tenderness: There is no abdominal tenderness. Comments: BS hypoactive Neurological: Mental Status: She is alert. {ASSESSMENT/PLAN: 1. Nausea and vomiting, unspecified vomiting type - ICD9: 787.01, ICD10: R11.2 (primary diagnosis) - ONDANSETRON 4 MG DISINTEGRATING TABLET 2. Viral illness - ICD9: 079.99, ICD10: B34.9 - Discussed viral etiology and rationale for treatment. - Symptomatic treatment with prn analgesia - Supportive care with fluids and rest. - ONDANSETRON 4 MG DISINTEGRATING TABLET Adiel Hernández APRN.FAMILY SERVICES SPECIALIST Differential Diagnoses - Viral gastroenteritis is more likely for the following reason(s): suggested by H&P Disposition The patient was discharged. Procedures documented in this encounter [facility] 03-01-2025 Discharge summary [facility] 03-01-2025 Note [facility] Medical Records Department [address] [place] [address] Discharge Summary 03/01/25 1050 MR#: [id number] Acct: [id number] Name: MILDRED MICHEL Rep #: [id number] : 1990 34 From: Mark Stephens DO PCP: Aparna Chavez [employer] Status:DIS IN Location: [facility] [id number] Providers Date of Admission: 02/28/25 Date of Discharge: 03/01/25 Primary Care Physician: YOVANI Kam, [employer] Reason For Visit: BL LE BITE WOUNDS W/CELLULITIS Diagnosis Discharge Diagnosis (1) Cellulitis: Status: Acute Code(s): L03.90 - Cellulitis, unspecified Plan 1. Cellulitis of the legs #2 chronic depression Medications at Discharge Home Medications sertraline 100 mg tablet (Zoloft) 100 mg PO DAILY 02/14/22 albuterol sulfate 90 mcg/actuation aerosol inhaler 2 puff inhalation Q6H PRN asthma 08/15/23 multivitamin no.47-iron fum 27 mg-folate no.1 1 mg-dha 300 mg capsule (PNV-DHA) 1 cap PO DAILY 08/15/23 cholecalciferol (vitamin D3) 50 mcg (2,000 unit) capsule 50 mcg PO QDAY 05/10/24 mupirocin 2 % topical ointment 1 applic topical TID 02/28/25 cefdinir 300 mg capsule 300 mg PO BID #14 caps 03/01/25 doxycycline monohydrate 100 mg tablet 100 mg PO BID #14 tabs 03/01/25 Hospital Course Operations None Procedures None Summary of Care Provided Minutes Spent on Discharge: 31 Hospital Course: This 34-year-old white female was seen in the emergency room at [facility] with complaints of reddened areas over her legs, she had been seen at [facility] and [facility] and told that she had MRSA as indicated by examination of the areas, she was started on Bactrim 3 days prior and did not feel that she was improving. Labs including CBC and a CHEM panel are unremarkable, wound culture was obtained. Patient was admitted to [place] [address] and placed on IV antibiotics, the following day he areas were improved somewhat and the patient was felt to be stable for discharge home. On 03/01/2025, patient was seen and examined: On examination she appeared in good health and spirits, she does not appear to be in any distress. Vital signs as documented. Skin warm and dry, there is some reddened areas noted over the patient's legs, these areas are only a centimeter in diameter or less.. Neck without JVD, thyroid appears normal, trachea is midline, neck is supple. Lungs clear, normal air movement was noted. Heart exam notable for regular rhythm, normal sounds and absence of murmurs, rubs or gallops. Abdomen unremarkable and without evidence of organomegaly, masses, or abdominal aortic enlargement, bowel sounds are present in all 4 quadrants, no abdominal tenderness was noted. Extremities nonedematous, no cyanosis was noted, no clubbing was noted. Neuro: Cranial nerves II through XII are grossly intact, no focal motor deficits were noted, sensation to light touch and pinprick is intact, motor exam 5/5 throughout. Psych: Patient is alert and oriented x3, she does not appear anxious or depressed, she does not appear agitated. Patient was discharged home in stable condition on 03/01/2025. Weight / BMI Weight Weight: 109.6 kg Body Mass Index (BMI) 42.7 ABG / Lab / Microbiology Data 03/01/25 05:08 03/01/25 05:08 Laboratory: Laboratory Results - last 24 hr 02/28/25 21:05: WBC 6.3, RBC 4.94, Hgb 14.5, Hct 42.1, MCV 85.2, MCH 29.4, MCHC 34.4, RDW Std Deviation 41.9, RDW Coeff of Ignacio 13.7, Plt Count 242, MPV 11.5, Immature Gran % (Auto) 0.300, Neut % (Auto) 44.1 L, Lymph % (Auto) 40.0, [place] % (Auto) 6.2, Eos % (Auto) 8.4 H, Baso % (Auto) 1.0, Absolute Neuts (auto) 2.8, Absolute Lymphs (auto) 2.51, Nucleated RBC % 0, ESR 8, Sodium 139, Potassium 4.3, Chloride 105, Carbon Dioxide 23.0, Anion Gap 11, BUN 12, Creatinine 0.82, Estim Creat Clear Calc 114.62, Est GFR (MDRD) Non-Af 96, BUN/Creatinine Ratio 14.3, Glucose 91, Calcium 8.9, C- React Prot Ext Range 11.00 H, Procalcitonin 0.05 02/28/25 21:23: S.aureus Protein A PCR POSITIVE H, MRSA (PCR) Negative 03/01/25 05:08: WBC 6.5, RBC 4.55, Hgb 13.0, Hct 39.1, MCV 85.9, MCH 28.6, MCHC 33.2, RDW Std Deviation 42.2, RDW Coeff of Ignacio 13.4, Plt Count 200, MPV 11.7, Immature Gran % (Auto) 0.300, Neut % (Auto) 49.3, Lymph % (Auto) 38.2, [place] % (Auto) 6.5, Eos % (Auto) 5.1 H, Baso % (Auto) 0.6, Absolute Neuts (auto) 3.2, Absolute Lymphs (auto) 2.47, Nucleated RBC % 0, Sodium 141, Potassium 4.1, C hloride 109 H, Carbon Dioxide 22.6, Anion Gap 10, BUN 14, Creatinine 0.82, Estim Creat Clear Calc 113.80, Est GFR (MDRD) Non-Af 96, BUN/Creatinine Ratio 16.5, Glucose 109 H, Calcium 8.9, Total Bilirubin < 0.15, AST 18, ALT 25, Alkaline Phosphatase 67, Total Protein 5.7 L, Albumin 3.6, G lobulin 2.1 L, Albumin/Globulin Ratio 1.7 Microbiology: Microbiology 02/28/25 21:23 Bite - Ankle Gram Stain - Final 02/28/25 21:23 Bite - Ankle Wound Cu (more content not included)... [facility] 03-01-2025 Consult note Note Date/Time March 01, 2025 1:06am [facility] Medical Records Department [address] [place] [address] Pharmacokinetic/Renal -Consult 03/01/25 0105 MR#: [id number] Acct: [id number] Name: MILDRED MICHEL Rep #:[id number] : 1990 34 From: Deonte Vigil od PCP: Aparna Chavez [employer] Status:ADM IN Y Location: [place] [address] Consult Antibiotic Management Pharmacy has been consulted to manage selected antibiotic: Vancomycin Type of Intervention Type of Consult: New start Labs Labs: Sodium 139 mmol/L (133-145) 02/28/25 21:05 Potassium 4.3 mmol/L (3.3-5.1) 02/28/25 21:05 Chloride 105 mmol/L (98-108) 02/28/25 21:05 Carbon Dioxide 23.0 mmol/L (21.0-32.0) 02/28/25 21:05 Anion Gap 11 (5-15) 02/28/25 21:05 BUN 12 mg/dL (4-19) 02/28/25 21:05 Creatinine 0.82 mg/dL (0.70-1.20) 02/28/25 21:05 Est GFR (MDRD) Non-Af 96 (>60) 02/28/25 21:05 BUN/Creatinine Ratio 14.3 RATIO (10-20) 02/28/25 21:05 Glucose 91 mg/dL (70-99) 02/28/25 21:05 Dosing Weight Weight used for dosin.6 kg Estimated Creatinine Clearance Estimated Creatinine Clearance: 114.6 Goal Trough Goal Trough: 10-15 mcg/mL Pharmacy Plan for Drug Dosing Pharmacy Plan for Drug Dosing: Pharmacy Service will continue to monitor and adjust dosing as required. 1500MG GIVEN IN ER @ 2308. START 1750MG Q12H AND DRAW TROUGH PRIOR TO 4TH DOSE Follow-Up Labs Follow-Up Labs: Trough: Vancomycin Date/Time Labs Ordered Labs to be done on [date and time ordered]: 03/02 @ 1030 03/01/25105 <Electronically signed by Deonte lawler> Date _ Deonte Osborne Cosigner Signature (if applicable): Date CC: ~ Signed [facility] Work Phone: 1(209) 110-966306-28-2025 Consult note [facility] Medical Records Department [address] [place] [address] Pharmacokinetic/Renal -Consult 03/01/25104 MR#: [id number] Acct: [id number] Name: MILDRED MICHELINE Rep #:[id number] : 1990 34 From: Deonte Vigil od PCP: Aparna Chavez [facility] [employer] Status:ADM IN Location: [place] [address] Consult Antibiotic Management Pharmacy has been consulted to manage selected antibiotic: Vancomycin Type of Intervention Type of Consult: New start Labs Labs: Sodium 139 mmol/L (133-145) 02/28/25 21:05 Potassium 4.3 mmol/L (3.3-5.1) 02/28/25 21:05 Chloride 105 mmol/L (98-108) 02/28/25 21:05 Carbon Dioxide 23.0 mmol/L (21.0-32.0) 02/28/25 21:05 Anion Gap 11 (5-15) 02/28/25 21:05 BUN 12 mg/dL (4-19) 02/28/25 21:05 Creatinine 0.82 mg/dL (0.70-1.20) 02/28/25 21:05 Est GFR (MDRD) Non-Af 96 (>60) 02/28/25 21:05 BUN/Creatinine Ratio 14.3 RATIO (10-20) 02/28/25 21:05 Glucose 91 mg/dL (70-99) 02/28/25 21:05 Dosing Weight Weight used for dosin.6 kg Estimated Creatinine Clearance Estimated Creatinine Clearance: 114.6 Goal Trough Goal Trough: 10-15 mcg/mL Pharmacy Plan for Drug Dosing Pharmacy Plan for Drug Dosing: Pharmacy Service will continue to monitor and adjust dosing as required. 1500MG GIVEN IN ER @ 2308. START 1750MG Q12H AND DRAW TROUGH PRIOR TO 4TH DOSE Follow-Up Labs Follow-Up Labs: Trough: Vancomycin Date/Time Labs Ordered Labs to be done on [date and time ordered]: 03/02 @ 1030 03/01/25 0106 lood> Date _ Deonte Coffman Signature (if applicable): Date CC: ~ Signed [facility]06-28-2025 History and physical note Author Norma Byrnes [facility] Note Date/Time February 28, 2025 11:0 5pm [facility] Medical Records Department [address] [place] [address] H&P Exam - Hospitalist 02/28/25 2244 MR#: [id number] Acct: [id number] Name: MILDRED MICHEL Rep #:[id number] : 1990 34 From: Norma Byrnes MD PCP: Aparna Chavez [employer] Status:REG ER Location: ED HPI - General General Date of Admission: 02/28/25 Date of Service: 02/28/25 Chief Complaint: BL LE bite wounds with worsening erythema despite recent abx therapy. HPI Narrative The patient is a 34 y/o F w/ PMHx: Thyroid disorder, Hx VTE (DVT), Asthma w/ Allergic rhinitis, Anxiety and Depression, PCOS who presents to the [facility] ED on 02/28/2025 with history of what she presumed initially were bug bites on 02/19 with eventual subsequently developing mirella-bite erythema seen at [facility] in [place] and diagnosed at that time with MRSA infection placed on Bactrim and started this 3 days previous to current presentation however she feels as though she has had worsening appearance with increased erythema 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 She does report being more fatigued. She does report notable itching to the BL LE. Workup in the ED included T98.5, heart rate 82, BP 130/88,respiratory rate 16, 100% on room air with most recent repeat vitals heart rate 80, BP 124/67, respiratory rate 18, 100% on room air, CBC with WC 6.3, hemoglobin 14.5, platelet 242 without marked shift, ESR pending and CRP pending upon requested evaluation of patient, BNP unremarkable. In the ED patient ministered vancomycin 15 mg IV x 1. In the ED localized cultures obtained per ED physician with MRSA culture and wound culture obtained. [facility] Medical History Asthma PCOS (polycystic ovarian syndrome) Family history of hearing loss at age younger than 7 years DVT (deep venous thrombosis) Superficial varicosities Headache Bleeding in early Seasonal allergies History of DVT of lower extremity Anovulation Depression with anxiety Home Medications ?Medication ?Instructions ?Recorded ?Last Taken ?Type sertraline 100 mg tablet (Zoloft) 100 mg PO DAILY 02/0203/19/24 20:00 History 100 mg albuterol sulfate 90 mcg/actuation 2 puff inhalation Q 6H PRN asthma 08/15/23 Unknown History aerosol inhaler metformin 500 mg tablet 500 mg PO DAILY 08/15/23 18:00 History 500 mg multivitamin no.47-iron fum 27 1 cap PO DAILY pregnanc y 08/15/23 03/19/24 08:00 History mg-folate no.1 1 mg-dha 300 mg capsule (PNV-DHA) enoxaparin 40 mg/0.4 mL 60 mg (0.6 mL) subcut Q24H 6 weeks 03/23/24 Unknown Rx subcutaneous syringe (Lovenox) #25.2 mL cholecalciferol (vitamin D3) 50 50 mcg PO QDAY 4 Unknown History mcg (2,000 unit) capsule Allergy/AdvReac Type Severity Reaction Status Date / Time bacitracin (From Neosporin Allergy Intermediate Rash Verified 02/28/25 18:49 ([id number])) neomycin (From Neosporin Allergy Intermediate Rash Verified 02/28/25 18:49 ([id number])) polymyxin B (From Neosporin Allergy Intermediate Rash Verified 02/28/25 18:49 ([id number])) latex Allergy Rash Verified 02/28/25 18:49 banana AdvReac Nausea Verified 02/28/25 18:49 Family History Father Seizures Chiari malformation Lupus [...] history of recent travel: Yes (FLA at [employer]) out of state: Yes out of country: [...] in: swimming frequency: 3-4 times per week song/druze: Confucianism seatbelt use: always do you feel safe at home: Yes additional social history: - [employer] ROS ROS Narrative Admission Review of Systems: CONSTITUTIONAL: No weight loss, fever, chills,+ weakness or fatigue. HEENT: Eyes: No visual loss, blurred vision, double vision or yellow sclerae. Ears, Nose, Throat: No hearing loss, sneezing, congestion, runny nose or sore throat. SKIN: + Bilateral lower extremity small bite wounds with central necrosis and surrounding erythema and excoriation with pruritus. CARDIOVASCULAR: No chest pain, chest pressure or chest discomfort, palpitations,edema, orthopnea, syncopal events. RESPIRATORY: No shortness of breath, cough or sputum, wheezing, hemoptysis. GASTROINTESTINAL: No anorexia, nausea, vomiting or diarrhea, abdominal pain, melena, BRBPR. GENITOURINARY: No dysuria, frequency, urgency or retention. NEUROLOGICAL: No headache, dizziness, syncope, paralysis, ataxia, numbness or tingling in the extremities, focal weakness, change in bowel or bladder control,seizure. MUSCULOSKELETAL: + muscle, back pain, joint pain or stiffness. HEMATOLOGIC: No anemia, bleeding or bruising. LYMPHATICS: No enlarged nodes. No history of splenectomy. PSYCHIATRIC: No history of depression or anxiety. ENDOCRINOLOGIC: No reports of sweating, cold or heat intolerance. No polyuria orpolydipsia. ALLERGIES:+ History of asthma. Vital Signs Vital Signs Vital Signs: 02/28/25 18:49 02/28/25 18:52 Temperature 98.5 F Temperature Source Oral Pulse Rate 82 80 Respiratory Rate 16 18 Blood Pressure 130/88 H 124/67 H Blood Pressure Mean 102 86 Pulse Ox 100 100 Oxygen Delivery Method Room Air Room Air Weight Weight: 237 lb Body Mass Index (BMI) 40.6 Physical Exam Narrative Physical Examination: General: Awake, alert, oriented x 3 and cooperative, seated upright in ED bed, fatigued otherwise no acute distress, does report notable itching to bilateral lower extremity lesions. Skin: Normal color, normal turgor, no icterus, no cyanosis except for bilateral lower extremity bite regions with periwound erythema and evident excoriation with some increased cellulitic region over the upper thighs also with some central occasional necrosis to the bug bite region. HEENT: AT/NC, EOMI, PERRLA, MMM, no carotid bruits, difficult discern JVD given thickened neck. Lungs: Mild diminished, greater bases, poor effort, no rales, ronchi or wheezing. Heart: Regular rate and rhythm; no gallop, rub audible. Abdomen: Soft, morbidly obese, NTTP, distant BS, difficult to discern distentionand HSM given habitus. Extremities: No cyanosis, no clubbing, no notable pitting distal edema, see skin. Neurological: Patient awake, alert, oriented as noted, cognitive function intact; pupils equally reactive to light and accommodation, cranial nerves grossly normal, moving all 4 extremities, no focal deficits, strength preserved. Psychiatric: Affect appears fatigued otherwise normal, no acute evidence of depressive or anxiety feelings but does have underlying history. Results Lab / Micro Data 02/28/25 21:05 02/28/25 21:05 Labs: Laboratory Results - last 24 hr 02/28/25 21:05: WBC 6.3, RBC 4.94, Hgb 14.5, Hct 42.1, MCV 85.2, MCH 29.4, MCHC 34.4, RDW Std Deviation 41.9, RDW Coeff of Ignacio 13.7, Plt Count 242, MPV 11.5, Immature Gran % (Auto) 0.300, Neut % (Auto) 44.1 L, Lymph % (Auto) 40.0, [place] % (Auto) 6.2, Eos % (Auto) 8.4 H, Baso % (Auto) 1.0, Absolute Neuts (auto) 2.8, Absolute Lymphs (auto) 2.51, Nucleated RBC % 0, Sodium 139, Potassium 4.3, Chloride 105, Carbon Dioxide 23.0, Anion Gap 11, BUN 12, Creatinine 0.82, Estim Creat Clear Calc 114.62, Est GFR (MDRD) Non-Af 96, BUN/Creatinine Ratio 14.3, Glucose 91, Calcium 8.9 Assessment & Plan Assessment/Plan (1) Cellulitis: PLAN: Plan The patient is a 34 y/o F w/ PMHx: Thyroid disorder, Hx VTE (DVT), Asthma w/ Allergic rhinitis, Anxiety and Depression, PCOS who presents to the [facility] ED on 02/28/2025 with history of what she presumed initially were bug bites on 02/19 with eventual subsequently developing mirella-bite erythema seen at [facility] in [place] and diagnosed at that time with MRSA infection placed on Bactrim and started this 3 days previous to current presentation however she feels as though she has had worsening appearance with increased erythema 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 #1. Concern for Acute BL LE Mirella-bite Cellulitis with small draining wounds, failed outpatient antibiotic therapy: Will admit to [facility] given stable vital signs,maintain on IV vancomycin given recent history of MRSA positive culture at outside facility however awaiting ED initiated wound culture and MRSA culture and certainly can alter antibiotic therapy as needed, continue BL LE elevation above heart when seated and in bed, monitor erythema outline with VS checks, will continue routine localized wound/dressing care, will have hydroxyzine PRN for pruritus. #2. Bilateral lower extremities with multiple lesions with central necrosis with excoriation and surrounding erythema #3. History VTE: Patient with history of DVT, perviously treated with course lovenox per records. #4. Chronic asthma: Per current list does not appear to be on chronic regimen, will have as needed albuterol, encourage head of bed and I-S. #5. Anxiety and depression: Will continue patient home sertraline regimen. #6. PCOS: Will temporally hold metformin, resume outpatient. #7. Allergic rhinitis: Per current list does not appear to be on regimen, deferto outpatient. #8. Morbid Obesity: Weight loss and lifestyle changes encouraged. #9. Thyroid disorder: Patient notes that she has had ongoing outpatient evaluation for thyroid disease but is not on any medication and her thyroid function studies continue to be monitored. #10. DVT prophylaxis: Lovenox. Charges/Coding Visit Charges Inpatient E&M: 27392 Init Hosp L3 02/28/25 2308 <Electronically signed by Norma Byrnes MD> Cosigner Signature (if applicable): CC: Dr. Norma Byrnes MD; Aparna [facility] [place] [facility]-Karla Beam~ Signed [facility] Work Phone: 1(695) 722-990106-28-2025 Evaluation note* Diagnosis Onset Date Resolution Status Admit Date Cellulitis acute February 28 10:47pm [facility] Work Phone: 1(706) 160-620806-28-2025 Evaluation note* Diagnosis Onset Date Resolution Status Admit Date Cellulitis inactive February 28 10:47pm [facility] Work Phone: 1(322) 767-117806-28-2025 Discharge summary Author Mary Stoll [facility] Note Date/Time February 28, 2025 10:4 3pm [facility] Medical Records Department [address] [place] [address] Emergency Department Summary 02/28/25 MR#: [id number] Acct: [id number] Name: MILDRED MICHEL Rep #:[id number] : 1990 34 From: Mary Stoll DO PCP: Aparna Chavez [employer] Status:REG ER Location: ED HPI History of Present Illness Chief Complaint: Cellulitis Detail of Chief Complaint: Wounds/rash Informant: patient Narrative Narrative: Patient with wounds that she thought were bug bites that started on February 19. Subsequently developed surrounding erythema. She was seen at [facility] in [place] and diagnosed with MRSA by simple observation and was started on Bactrim 3 days ago. She continues to get new lesions and does not feel like she is responding to treatment. She denies fevers or chills or sweats. 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 The lesions are mostly involving her lower extremities. [facility] Medical History Family history of hearing loss at age younger than 7 years Thyroid disorder DVT (deep venous thrombosis) Superficial varicosities Headache Cephalgia Bleeding in early Seasonal allergies History of DVT of lower extremity Anovulation HISTORY OF PLANTERS WART REMOVAL NECK AND BACK PAIN Difficulty balancing Depression with anxiety Knee pain Shoulder pain Shortness of breath Home Medications ?Medication ?Instructions ?Recorded ?Last Taken ?Type sertraline 100 mg tablet (Zoloft) 100 mg PO DAILY 02/0203/19/24 20:00 History 100 mg albuterol sulfate 90 mcg/actuation 2 puff inhalation Q 6H PRN asthma 08/15/23 Unknown History aerosol inhaler metformin 500 mg tablet 500 mg PO DAILY 08/15/23 18:00 History 500 mg multivitamin no.47-iron fum 27 1 cap PO DAILY pregnanc y 08/15/23 03/19/24 08:00 History mg-folate no.1 1 mg-dha 300 mg capsule (PNV-DHA) enoxaparin 40 mg/0.4 mL 60 mg (0.6 mL) subcut Q24H 6 weeks 03/23/24 Unknown Rx subcutaneous syringe (Lovenox) #25.2 mL cholecalciferol (vitamin D3) 50 50 mcg PO QDAY 4 Unknown History mcg (2,000 unit) capsule Allergy/AdvReac Type Severity Reaction Status Date / Time bacitracin (From Neosporin Allergy Intermediate Rash Verified 02/28/25 18:49 ([id number])) neomycin (From Neosporin Allergy Intermediate Rash Verified 02/28/25 18:49 ([id number])) polymyxin B (From Neosporin Allergy Intermediate Rash Verified 02/28/25 18:49 ([id number])) latex Allergy Rash Verified 02/28/25 18:49 banana AdvReac Nausea Verified 02/28/25 18:49 Family History Father Seizures Chiari malformation Lupus [...] history of recent travel: Yes (FLA at [employer]) out of state: Yes out of country: [...] in: swimming frequency: 3-4 times per week song/druze: Confucianism seatbelt use: always do you feel safe at home: Yes additional social history: - [employer] ROS ROS ED Review of Systems ROS Unobtainable: other Constitutional Constitutional ED: Reports lethargy; Denies chills, fever(s), sweats or weight loss Eyes Eyes: Denies blurry vision, change in vision or diplopia ENT ENT ED: Denies rhinorrhea or sore throat Cardiovascular Cardiovascular: Denies chest pain, orthopnea or racing heartbeat Respiratory/Chest Respiratory/Chest: Denies cough, dyspnea, dyspnea on exertion, orthopnea or sputum Gastrointestinal Gastrointestinal: Denies abdominal pain, diarrhea, nausea or vomiting Genitourinary Genitourinary ED: Denies dysuria, hematuria or urinary frequency Musculoskeletal Musculoskeletal: Denies arthralgias, back pain, myalgias or neck pain Integumentary Reports rash; Denies abscess or Abrasions Neurologic Neurologic: Denies headache(s) or weakness Psychiatric Psychiatric: Denies anxiety, depression or suicidal thoughts Endocrine Endocrinology: Denies polydipsia, polyphagia or polyuria Hematologic/Lymphatic Hematologic/Lymphatic: Denies easy bleeding, easy bruising or lymphadenopathy Allergic/Immunologic Allergic/Immunologic ED: Denies mouth swelling, tongue swelling or urticaria EXAM Physical Exam Const Vital Signs: 02/28/25 18:49 02/28/25 18:52 Temperature 98.5 F Temperature Source Oral Pulse Rate 82 80 Respiratory Rate 16 18 Blood Pressure 130/88 H 124/67 H Blood Pressure Mean 102 86 Pulse Ox 100 100 Oxygen Delivery Method Room Air Room Air Positive well nourished and well developed General Appearance ED: well developed and NAD HEENT Reports TM's clear and moist mucous membranes normocephalic and atraumatic; Negative for trauma or tenderness Tympanic Membrane ED: Yes TM's clear Eyes PERRL and EOMs intact bilaterally General Eye ED: Negative for pale conjunctiva or scleral icterus Neck no lymphadenopathy, supple and no JVD General: Negative for tenderness Chest Wall inspection of chest normal and palpation of chest normal Chest: Negative for tenderness Resp normal respiratory effort and clear to auscultation bilaterally Effort and Inspection: Negative for respiratory distress or pain with movement Auscultation: Negative for rhonchi, wheezes or diminished lung sounds Cardio regular rate, regular rhythm, S1 normal heart sound, S2 normal heart sound and no murmurs Peripheral Pulses: pulses 2+ throughout GI normal to inspection, nondistended, normoactive bowel sounds, soft to palpation,non-tender, non-distended and no masses Back/Spine no CVA tenderness and no thoracic nor lumbar tenderness Extremity Extremity Narrative: Patient with multiple lesions to both lower extremities that are excoriated withcentral necrosis and surrounding erythema. Involvement includes the posterior thighs bilaterally. No involvement of the trunk or upper extremities. General Extremety ED: Negative for edema General Extremity: Negative for edema Neuro oriented x3, CN's II-XII intact bilaterally, no sensory deficits noted and gait normal Sensorium / Orientation: awake, alert, oriented to person, oriented to place andoriented to time Motor Exam: strength 5/5 throughout and strength abnormal Psych mental status grossly normal Skin no rashes or lesions noted and no wounds MDM MDM MDM Narrative Medical decision making narrative: Patient with lesions to both lower extremities x 9 days. Currently on Bactrim apparently not responding well. Will obtain labs as well as MRSA culture and wound culture. CBC with differential obtained showed a white count of 6.3 with hemoglobin 14.5 and platelet count 242. Chemistries unremarkable. CRP and sed rate ordered and pending. I ordered MRSA culture as well as a wound culture. Patient started on vancomycin IV. Will discuss with hospitalist to evaluate patient for admission for cellulitis with failed outpatient therapy Lab Data Attestation: I reviewed the patient's lab results. Labs: Laboratory Results - last 24 hr 02/28/25 21:05 WBC 6.3 RBC 4.94 Hgb 14.5 Hct 42.1 MCV 85.2 MCH 29.4 MCHC 34.4 RDW Std Deviation 41.9 RDW Coeff of Ignacio 13.7 Plt Count 242 MPV 11.5 Immature Gran % (Auto) 0.300 Neut % (Auto) 44.1 L Lymph % (Auto) 40.0 [place] % (Auto) 6.2 Eos % (Auto) 8.4 H Baso % (Auto) 1.0 Absolute Neuts (auto) 2.8 Absolute Lymphs (auto) 2.51 Nucleated RBC % 0 Sodium 139 Potassium 4.3 Chloride 105 Carbon Dioxide 23.0 Anion Gap 11 BUN 12 Creatinine 0.82 Estim Creat Clear Calc 114.62 Est GFR (MDRD) Non-Af 96 BUN/Creatinine Ratio 14.3 Glucose 91 Calcium 8.9 Discharge Plan Triage Chief Complaint: Cellulitis ED Provider: Mary Stoll Dx/Rx/DC Orders Clinical Impression: Cellulitis Prescriptions: No Action sertraline [Zoloft] 100 mg tablet 100 mg PO DAILY PNV-DHA 27 mg iron-1 mg -300 mg capsule 1 cap PO DAILY metformin 500 mg tablet 500 mg PO DAILY albuterol sulfate 90 mcg/actuation HFA aerosol inhaler 2 puff inhalation Q6H PRN (Reason: asthma) cholecalciferol (vitamin D3) 50 mcg (2,000 unit) capsule 50 mcg PO QDAY enoxaparin [Lovenox] 40 mg/0.4 mL syringe 60 mg subcut Q24H 42 Days Qty: 25.2 0RF Primary Care Provider: Aparna Chavez Referrals: Aparna Chavez, [employer] [Primary Care Provider] - Print Language: Martiniquais Disposition Disposition: [facility] What to do if you have Problems For any increased pain, shortness of breath, bleeding, nausea or vomiting, chestpain, or any unexpected problems, contact your Primary Care Provider. Call [facility] ([phone]) or report to the closest Emergency Room. Call 911 if necessary. 02/28/252242 <Electronically signed by Mary Stoll DO> Cosigner Signature (if applicable): CC: Aparna PINA [employer] Kathy ~ Signed [facility] Work Phone: [phone] [phone] History and physical note [facility] Medical Records Department [address] [place] [address] H&P Exam - Hospitalist 02/28/252243 MR#: [id number] Acct: [id number] Name: MILDRED MICHEL Rep #:[id number] : 1990 34 From: Norma Byrnes MD PCP: Aparna Chavez [employer] Status:REG ER Location: ED HPI - General General Date of Admission: 02/28/25 Date of Service: 02/28/25 Chief Complaint: BL LE bite wounds with worsening erythema despite recent abx therapy. HPI Narrative The patient is a 34 y/o F w/ PMHx: Thyroid disorder, Hx VTE (DVT), Asthma w/ Allergic rhinitis, Anxiety and Depression, PCOS who presents to the [facility] ED on 02/28/2025 with history of what she presumed initially were bug bites on 02/19 with eventual subsequently developing mirella-bite erythema seen at [facility] in [place] and diagnosed at that time with MRSA infection placed on Bactrim and started this 3 days previous to current presentation however she feels as though she has had worsening appearance with increased erythema 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 She does report being more fatigued. She does report notable itching to the BL LE. Workup in the ED included T98.5, heart rate 82, BP 130/88,respiratory rate 16, 100% on room air with most recent repeat vitals heart rate 80, BP 124/67, respiratory rate 18, 100% on room air, CBC with WC 6.3, hemoglobin 14.5, platelet 242 without marked shift, ESR pending and CRP pending upon requested evaluation of patient, BNP unremarkable. In the ED patient ministered vancomycin 15 mg IV x 1. Inthe ED localized cultures obtained per ED physician with MRSA culture and wound culture obtained. [facility] Medical History Asthma PCOS (polycystic ovarian syndrome) Family history of hearing loss at age younger than 7 years DVT (deep venous thrombosis) Superficial varicosities Headache Bleeding in early Seasonal allergies History of DVT of lower extremity Anovulation Depression with anxiety Home Medications ?Medication ?Instructions ?Recorded ?Last Taken ?Type sertraline 100 mg tablet (Zoloft) 100 mg PO DAILY 02/0203/19/24 20:00 History 100 mg albuterol sulfate 90 mcg/actuation 2 puff inhalation Q 6H PRN asthma 08/15/23 Unknown History aerosol inhaler metformin 500 mg tablet 500 mg PO DAILY 08/15/23 18:00 History 500 mg multivitamin no.47-iron fum 27 1 cap PO DAILY pregnanc y 08/15/23 03/19/24 08:00 History mg-folate no.1 1 mg-dha 300 mg capsule (PNV-DHA) enoxaparin 40 mg/0.4 mL 60 mg (0.6 mL) subcut Q24H 6 weeks 03/23/24 Unknown Rx subcutaneous syringe (Lovenox) #25.2 mL cholecalciferol (vitamin D3) 50 50 mcg PO QDAY 4 Unknown History mcg (2,000 unit) capsule Allergy/AdvReac Type Severity Reaction Status Date / Time bacitracin (From Neosporin Allergy Intermediate Rash Verified 02/28/25 18:49 ([id number])) neomycin (From Neosporin Allergy Intermediate Rash Verified 02/28/25 18:49 ([id number])) polymyxin B (From Neosporin Allergy Intermediate Rash Verified 02/28/25 18:49 ([id number])) latex Allergy Rash Verified 02/28/25 18:49 banana AdvReac Nausea Verified 02/28/25 18:49 Family History Father Seizures Chiari malformation Lupus [...] history of recent travel: Yes (FLA at [employer]) out of state: Yes out of country: [...] in: swimming frequency: 3-4 times per week song/druze: Confucianism seatbelt use: always do you feel safe at home: Yes additional social history: - [employer] ROS ROS Narrative Admission Review of Systems: CONSTITUTIONAL: No weight loss, fever, chills,+ weakness or fatigue. HEENT: Eyes: No visual loss, blurred vision, double vision or yellow sclerae. Ears, Nose, Throat: No hearing loss, sneezing, congestion, runny nose or sore throat. SKIN: + Bilateral lower extremity small bite wounds with central necrosis and surrounding erythema and excoriation with pruritus. CARDIOVASCULAR: No chest pain, chest pressure or chest discomfort, palpitations,edema, orthopnea, syncopal events. RESPIRATORY: No shortness of breath, cough or sputum, wheezing, hemoptysis. GASTROINTESTINAL: No anorexia, nausea, vomiting or diarrhea, abdominal pain, melena, BRBPR. GENITOURINARY: No dysuria, frequency, urgency or retention. NEUROLOGICAL: No headache, dizziness, syncope, paralysis, ataxia, numbness or tingling in the extremities, focal weakness, change in bowel or bladder control,seizure. MUSCULOSKELETAL: + muscle, back pain, joint pain or stiffness. HEMATOLOGIC: No anemia, bleeding or bruising. LYMPHATICS: No enlarged nodes. No history of splenectomy. PSYCHIATRIC: No history of depression or anxiety. ENDOCRINOLOGIC: No reports of sweating, cold or heat intolerance. No polyuria orpolydipsia. ALLERGIES:+ History of asthma. Vital Signs Vital Signs Vital Signs: 02/28/25 18:49 02/28/25 18:52 Temperature 98.5 F Temperature Source Oral Pulse Rate 82 80 Respiratory Rate 16 18 Blood Pressure 130/88 H 124/67 H Blood Pressure Mean 102 86 Pulse Ox 100 100 Oxygen Delivery Method Room Air Room Air Weight Weight: 237 lb Body Mass Index (BMI) 40.6 Physical Exam Narrative Physical Examination: General: Awake, alert, oriented x 3 and cooperative, seated upright in ED bed, fatigued otherwise no acute distress, does report notable itching to bilateral lower extremity lesions. Skin: Normal color, normal turgor, no icterus, no cyanosis except for bilateral lower extremity bite regions with periwound erythema and evident excoriation with some increased cellulitic region overthe upper thighs also with some central occasional necrosis to the bug bite region. HEENT: AT/NC, EOMI, PERRLA, MMM, no carotid bruits, difficult discern JVD given thickened neck. Lungs: Mild diminished, greater bases, poor effort, no rales, ronchi or wheezing. Heart: Regular rate and rhythm; no gallop, rub audible. Abdomen: Soft, morbidly obese, NTTP, distant BS, difficult to discern distentionand HSM given habitus. Extremities: No cyanosis, no clubbing, no notable pitting distal edema, see skin. Neurological: Patient awake, alert, oriented as noted, cognitive function intact; pupils equally reactive to light and accommodation, cranial nerves grossly normal, moving all 4 extremities, no focaldeficits, strength preserved. Psychiatric: Affect appears fatigued otherwise normal, no acute evidence of depressive or anxiety feelings but does have underlying history. Results Lab / Micro Data 02/28/25 21:05 02/28/25 21:05 Labs: Laboratory Results - last 24 hr 02/28/25 21:05: WBC 6.3, RBC 4.94, Hgb 14.5, Hct 42.1, MCV 85.2, MCH 29.4, MCHC 34.4, RDW Std Deviation 41.9, RDW Coeff of Ignacio 13.7, Plt Count 242, MPV 11.5, Immature Gran % (Auto) 0.300, Neut % (Auto) 44.1 L, Lymph % (Auto) 40.0, [place] % (Auto) 6.2, Eos % (Auto) 8.4 H, Baso % (Auto) 1.0, Absolute Neuts (auto) 2.8, Absolute Lymphs (auto) 2.51, Nucleated RBC % 0, Sodium 139, Potassium 4.3, [id number], Carbon Dioxide 23.0, Anion Gap 11, BUN 12, Creatinine 0.82, Estim Creat Clear Calc 114.62, EstGFR (MDRD) Non-Af 96, BUN/Creatinine Ratio 14.3, Glucose 91, Calcium 8.9 Assessment & Plan Assessment/Plan (1) Cellulitis: PLAN: Plan The patient is a 34 y/o F w/ PMHx: Thyroid disorder, Hx VTE (DVT), Asthma w/ Allergic rhinitis, Anxiety and Depression, PCOS who presents to the [facility] ED on 02/28/2025 with history of what she presumed initially were bug bites on 02/19 with eventual subsequently developing mirella-bite erythema seen at [facility] in [place] and diagnosed at that time with MRSA infection placed on Bactrim and started this 3 days previous to current presentation however she feels as though she has had worsening appearance with increased erythema 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 #1. Concern for Acute BL LE Mirella-bite Cellulitis with small draining wounds, failed outpatient antibiotic therapy: Will admit to [facility] given stable vital signs,maintain on IV vancomycin given recent history of MRSA positive culture at outside facility however awaiting ED initiated wound culture and MRSA culture and certainly can alter antibiotic therapy as needed, continue BL LE elevation above heart when seated and in bed, monitor erythema outline with VS checks, will continue routine localized wound/dressing care, will have hydroxyzine PRN for pruritus. #2. Bilateral lower extremities with multiple lesions with central necrosis with excoriation and surrounding erythema #3. History VTE: Patient with history of DVT, perviously treated with course lovenox per records. #4. Chronic asthma: Per current list does not appear to be on chronic regimen, will have as needed albuterol, encourage head of bed and I-S. #5. Anxiety and depression: Will continue patient home sertraline regimen. #6. PCOS: Will temporally hold metformin, resume outpatient. #7. Allergic rhinitis: Per current list does not appear to be on regimen, deferto outpatient. #8. Morbid Obesity: Weight loss and lifestyle changes encouraged. #9. Thyroid disorder: Patient notes that she has had ongoing outpatient evaluation for thyroid disease but is not on any medication and her thyroid function studies continue to be monitored. #10. DVT prophylaxis: Lovenox. Charges/Coding Visit Charges Inpatient E&M: 55038 Init Hosp L3 02/28/25 2308 Cosigner Signature (if applicable): CC: Dr. Norma Byrnes MD; Aparna TREADWELL [employer] Kathy~ Signed [facility]06-27-2025 Discharge summary [facility] Medical Records Department [address] [place] [address] Emergency Department Summary 02/28/25 MR#: [id number] Acct: [id number] Name: MILDRED MICHEL Rep #:[id number] : 1990 34 From: Mary Stoll DO PCP: Aparna Chavez [employer] Status:REG ER Location: ED HPI History of Present Illness Chief Complaint: Cellulitis Detail of Chief Complaint: Wounds/rash Informant: patient Narrative Narrative: Patient with wounds that she thought were bug bites that started on February 19. Subsequently developedsurrounding erythema. She was seen at [facility] in [place] and diagnosed with MRSA by simple observation and was started on Bactrim 3 days ago. She continues to get new lesions and does not feel like she is responding to treatment. She denies fevers or chills or sweats. 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 The lesions are mostly involving her lower extremities. [facility] Medical History Family history of hearing loss at age younger than 7 years Thyroid disorder DVT (deep venous thrombosis) Superficial varicosities Headache Cephalgia Bleeding in early Seasonal allergies History of DVT of lower extremity Anovulation HISTORY OF PLANTERS WART REMOVAL NECK AND BACK PAIN Difficulty balancing Depression with anxiety Knee pain Shoulder pain Shortness of breath Home Medications ?Medication ?Instructions ?Recorded ?Last Taken ?Type sertraline 100 mg tablet (Zoloft) 100 mg PO DAILY 02/0203/19/24 20:00 History 100 mg albuterol sulfate 90 mcg/actuation 2 puff inhalation Q 6H PRN asthma 08/15/23 Unknown History aerosol inhaler metformin 500 mg tablet 500 mg PO DAILY 08/15/23 18:00 History 500 mg multivitamin no.47-iron fum 27 1 cap PO DAILY pregnanc y 08/15/23 03/19/24 08:00 History mg-folate no.1 1 mg-dha 300 mg capsule (PNV-DHA) enoxaparin 40 mg/0.4 mL 60 mg (0.6 mL) subcut Q24H 6 weeks 03/23/24 Unknown Rx subcutaneous syringe (Lovenox) #25.2 mL cholecalciferol (vitamin D3) 50 50 mcg PO QDAY 4 Unknown History mcg (2,000 unit) capsule Allergy/AdvReac Type Severity Reaction Status Date / Time bacitracin (From Neosporin Allergy Intermediate Rash Verified 02/28/25 18:49 ([id number])) neomycin (From Neosporin Allergy Intermediate Rash Verified 02/28/25 18:49 ([id number])) polymyxin B (From Neosporin Allergy Intermediate Rash Verified 02/28/25 18:49 ([id number])) latex Allergy Rash Verified 02/28/25 18:49 banana AdvReac Nausea Verified 02/28/25 18:49 Family History Father Seizures Chiari malformation Lupus [...] history of recent travel: Yes (FLA at [employer]) out of state: Yes out of country: [...] in: swimming frequency: 3-4 times per week song/druze: Confucianism seatbelt use: always do you feel safe at home: Yes additional social history: - [employer] ROS ROS ED Review of Systems ROS Unobtainable: other Constitutional Constitutional ED: Reports lethargy; Denies chills, fever(s), sweats or weight loss Eyes Eyes: Denies blurry vision, change in vision or diplopia ENT ENT ED: Denies rhinorrhea or sore throat Cardiovascular Cardiovascular: Denies chest pain, orthopnea or racing heartbeat Respiratory/Chest Respiratory/Chest: Denies cough, dyspnea, dyspnea on exertion, orthopnea or sputum Gastrointestinal Gastrointestinal: Denies abdominal pain, diarrhea, nausea or vomiting Genitourinary Genitourinary ED: Denies dysuria, hematuria or urinary frequency Musculoskeletal Musculoskeletal: Denies arthralgias, back pain, myalgias or neck pain Integumentary Reports rash; Denies abscess or Abrasions Neurologic Neurologic: Denies headache(s) or weakness Psychiatric Psychiatric: Denies anxiety, depression or suicidal thoughts Endocrine Endocrinology: Denies polydipsia, polyphagia or polyuria Hematologic/Lymphatic Hematologic/Lymphatic: Denies easy bleeding, easy bruising or lymphadenopathy Allergic/Immunologic Allergic/Immunologic ED: Denies mouth swelling, tongue swelling or urticaria EXAM Physical Exam Const Vital Signs: 02/28/25 18:49 02/28/25 18:52 Temperature 98.5 F Temperature Source Oral Pulse Rate 82 80 Respiratory Rate 16 18 Blood Pressure 130/88 H 124/67 H Blood Pressure Mean 102 86 Pulse Ox 100 100 Oxygen Delivery Method Room Air Room Air Positive well nourished and well developed General Appearance ED: well developed and NAD HEENT Reports TM's clear and moist mucous membranes normocephalic and atraumatic; Negative for trauma or tenderness Tympanic Membrane ED: Yes TM's clear Eyes PERRL and EOMs intact bilaterally General Eye ED: Negative for pale conjunctiva or scleral icterus Neck no lymphadenopathy, supple and no JVD General: Negative for tenderness Chest Wall inspection of chest normal and palpation of chest normal Chest: Negative for tenderness Resp normal respiratory effort and clear to auscultation bilaterally Effort and Inspection: Negative for respiratory distress or pain with movement Auscultation: Negative for rhonchi, wheezes or diminished lung sounds Cardio regular rate, regular rhythm, S1 normal heart sound, S2 normal heart sound and no murmurs Peripheral Pulses: pulses 2+ throughout GI normal to inspection, nondistended, normoactive bowel sounds, soft to palpation,non-tender, non-distended and no masses Back/Spine no CVA tenderness and no thoracic nor lumbar tenderness Extremity Extremity Narrative: Patient with multiple lesions to both lower extremities that are excoriated withcentral necrosis and surrounding erythema. Involvement includes the posterior thighs bilaterally. No involvement of thetrunk or upper extremities. General Extremety ED: Negative for edema General Extremity: Negative for edema Neuro oriented x3, CN's II-XII intact bilaterally, no sensory deficits noted and gait normal Sensorium / Orientation: awake, alert, oriented to person, oriented to place andoriented to time Motor Exam: strength 5/5 throughout and strength abnormal Psych mental status grossly normal Skin no rashes or lesions noted and no wounds MDM MDM MDM Narrative Medical decision making narrative: Patient with lesions to both lower extremities x 9 days. Currently on Bactrim apparently not responding well. Will obtain labs as well as MRSA culture and wound culture. CBC with differential obtained showed a white count of 6.3 with hemoglobin 14.5 and platelet count 242. Chemistries unremarkable.CRP and sed rate ordered and pending. I ordered MRSA culture as well as a wound culture. Patient started on vancomycin IV. Will discuss with hospitalist to evaluate patient for admission for cellulitis with failed outpatient therapy Lab Data Attestation: I reviewed the patient's lab results. Labs: Laboratory Results - last 24 hr 02/28/25 21:05 WBC 6.3 RBC 4.94 Hgb 14.5 Hct 42.1 MCV 85.2 MCH 29.4 MCHC 34.4 RDW Std Deviation 41.9 RDW Coeff of Ignacio 13.7 Plt Count 242 MPV 11.5 Immature Gran % (Auto) 0.300 Neut % (Auto) 44.1 L Lymph % (Auto) 40.0 [place] % (Auto) 6.2 Eos % (Auto) 8.4 H Baso % (Auto) 1.0 Absolute Neuts (auto) 2.8 Absolute Lymphs (auto) 2.51 Nucleated RBC % 0 Sodium 139 Potassium 4.3 Chloride 105 Carbon Dioxide 23.0 Anion Gap 11 BUN 12 Creatinine 0.82 Estim Creat Clear Calc 114.62 Est GFR (MDRD) Non-Af 96 BUN/Creatinine Ratio 14.3 Glucose 91 Calcium 8.9 Discharge Plan Triage Chief Complaint: Cellulitis ED Provider: Mary Stoll Dx/Rx/DC Orders Clinical Impression: Cellulitis Prescriptions: No Action sertraline [Zoloft] 100 mg tablet 100 mg PO DAILY PNV-DHA 27 mg iron-1 mg -300 mg capsule 1 cap PO DAILY metformin 500 mg tablet 500 mg PO DAILY albuterol sulfate 90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 Federal Confidentiality of Alcohol and Drug Abuse Patient Records regulations: The Federal rules restrict any use of the information to criminally investigate or prosecute any alcohol or drug abuse patient.[facility] HospitalIn the event this information is protected by the Federal Confidentiality of Alcohol and Drug Abuse Patient Records regulations: The Federal rules restrict any use of the information to criminally investigate or prosecute any alcohol or drug abuse patient.[facility] the event this information is protected by the Federal Confidentiality of Alcohol and Drug Abuse Patient Records regulations: The Federal rules restrict any use of the information to criminally investigate or prosecute any alcohol or drug abuse patient.[facility] the event this information is protected by the Federal Confidentiality of Alcohol and Drug Abuse Patient Records regulations: The Federal rules restrict any use of the information to criminally investigate or prosecute any alcohol or drug abuse patient.[facility] the event this information is protected by the Federal Confidentiality of Alcohol and Drug Abuse Patient Records regulations: The Federal rules restrict any use of the information to criminally investigate or prosecute any alcohol or drug abuse patient.[facility] HospitalIn the event this information is protected by the Federal Confidentiality of Alcohol and Drug Abuse Patient Records regulations: The Federal rules restrict any use of the information to criminally investigate or prosecute any alcohol or drug abuse patient.[facility] the event this information is protected by the Federal Confidentiality of Alcohol and Drug Abuse Patient Records regulations: The Federal rules restrict any use of the information to criminally investigate or prosecute any alcohol or drug abuse patient.[facility] the event this information is protected by the Federal Confidentiality of Alcohol and Drug Abuse Patient Records regulations: The Federal rules restrict any use of the information to criminally investigate or prosecute any alcohol or drug abuse patient.[facility] HospitalIn the event this information is protected by the Federal Confidentiality of Alcohol and Drug Abuse Patient Records regulations: The Federal rules restrict any use of the information to criminally investigate or prosecute any alcohol or drug abuse patient.[facility] HospitalIn the event this information is protected by the Federal Confidentiality of Alcohol and Drug Abuse Patient Records regulations: The Federal rules restrict any use of the information to criminally investigate or prosecute any alcohol or drug abuse patient.[facility] HospitalIn the event this information is protected by the Federal Confidentiality of Alcohol and Drug Abuse Patient Records regulations: The Federal rules restrict any use of the information to criminally investigate or prosecute any alcohol or drug abuse patient.[facility] HospitalIn the event this information is protected by the Federal Confidentiality of Alcohol and Drug Abuse Patient Records regulations: The Federal rules restrict any use of the information to criminally investigate or prosecute any alcohol or drug abuse patient.[facility]In the event this information is protected by the Federal Confidentiality of Alcohol and Drug Abuse Patient Records regulations: The Federal rules restrict any use of the information to criminally investigate or prosecute any alcohol or drug abuse patient.[facility] HospitalIn the event this information is protected by the Federal Confidentiality of Alcohol and Drug Abuse Patient Records regulations: The Federal rules restrict any use of the information to criminally investigate or prosecute any alcohol or drug abuse patient.[facility] HospitalIn the event this information is protected by the Federal Confidentiality of Alcohol and Drug Abuse Patient Records regulations: The Federal rules restrict any use of the information to criminally investigate or prosecute any alcohol or drug abuse patient.[facility] HospitalIn the event this information is protected by the Federal Confidentiality of Alcohol and Drug Abuse Patient Records regulations: The Federal rules restrict any use of the information to criminally investigate or prosecute any alcohol or drug abuse patient.[facility] HospitalIn the event this information is protected by the Federal Confidentiality of Alcohol and Drug Abuse Patient Records regulations: The Federal rules restrict any use of the information to criminally investigate or prosecute any alcohol or drug abuse patient.[facility] HospitalIn the event this information is protected by the Federal Confidentiality of Alcohol and Drug Abuse Patient Records regulations: The Federal rules restrict any use of the information to criminally investigate or prosecute any alcohol or drug abuse patient.[facility] HospitalIn the event this information is protected by the Federal Confidentiality of Alcohol and Drug Abuse Patient Records regulations: The Federal rules restrict any use of the information to criminally investigate or prosecute any alcohol or drug abuse patient.[facility] HospitalIn the event this information is protected by the Federal Confidentiality of Alcohol and Drug Abuse Patient Records regulations: The Federal rules restrict any use of the information to criminally investigate or prosecute any alcohol or drug abuse patient.[facility] HospitalIn the event this information is protected by the Federal Confidentiality of Alcohol and Drug Abuse Patient Records regulations: The Federal rules restrict any use of the information to criminally investigate or prosecute any alcohol or drug abuse patient.[facility] Care Teams (unrecognized sec tion and content) Aircraft Shipping Checker Relationship Specialty Start Date End Date Estrada Collins PA-C [address] [place] [address] PCP - General Family Practice 05/21/18 Aircraft Shipping Checker Relationship Specialty Start Date End Date Estrada Collins PA-C [address] [facility] [place] [address] PCP - General Family Practice 05/21/18 Aircraft Shipping Checker Relationship Specialty Start Date End Date Estrada Collins PA-C [address] [facility] [place] [address] PCP - General Family Practice 05/21/18 Aircraft Shipping Checker Relationship Specialty Start Date End Date Estrada Collins PA-C [address] [facility] [place] [address] PCP - General Family Medicine 05/21/18 Aircraft Shipping Checker Relationship Specialty Start Date End Date Estrada Collins PA-C [address] [facility] [place] [address] PCP - General Family Medicine 05/21/18 Aircraft Shipping Checker Relationship Specialty Start Date End Date Estrada Collins PA-C [address] [facility] [place] [address] PCP - General Family Medicine 05/21/18 Aircraft Shipping Checker Relationship Specialty Start Date End Date Estrada Collins PA-C [address] [facility] [place] [address] PCP - General Family Medicine 05/21/18 Aircraft Shipping Checker Relationship Specialty Start Date End Date Estrada Collins PA-C [address] [facility] [place] [address] PCP - General Family Medicine 05/21/18 Aircraft Shipping Checker Relationship Specialty Start Date End Date Estrada Collins PA-C [address] [facility] [place] [address] PCP - General Family Medicine 05/21/18 Aircraft Shipping Checker Relationship Specialty Start Date End Date Estrada Collins PA-C [address] [place], [place] [address] PCP - General Family Medicine 05/21/18 Aircraft Shipping Checker Relationship Specialty Start Date End Date Estrada Collins PA-C [address] [place], [place] [address] PCP - General Family Medicine 05/21/18 Aircraft Shipping Checker Relationship Specialty Start Date End Date Estrada Collins PA-C [address] [place], [place] [address] PCP - General Family Medicine 05/21/18 Team [...] CNM Attending Provider, Referring Pro vider Active Aircraft Shipping Checker Relationship Specialty Start Date End Date Estrada Collins PA-C [address] [place], [place] [address] PCP - General Family Medicine 05/21/18 Team Status: Inactive Member Role Status Dates KERRY Estrella Primary Care Provider, Referri ng Provider Active Albertina Wilkerson NP, FERTILIZER MIXER-C Attending Provider Active Team Status: Inactive Member Role Status Dates KERRY Estrella Primary Care Provider, Referri ng Provider Active Dr. Carey Nassar MD Attending Provider Active Team Status: Inactive Member Role Status Dates KERRY Estrella Primary Care Provider Active Dr. Carey Nassar MD Attending Provider, Referr ing Provider Active Aircraft Shipping Checker Relationship Specialty Start Date End Date Estrada Collins PA-C [address] [place], [place] [address] [phone] PCP - General Family Medicine 05/21/18 Aircraft Shipping Checker Relationship Specialty Start Date End Date Estrada Collins PA-C [address] [facility] [place] [address] PCP - General Family Medicine 05/21/18 Aircraft Shipping Checker Relationship Specialty Start Date End Date Estrada Collins PA-C [address] [facility] [place] [address] PCP - General Family Medicine 05/21/18 Aircraft Shipping Checker Relationship Specialty Start Date End Date Mark Collins PA-C PCP - General Family Medicine 05/21/18 Monica Gerard, MEDICAL BILLING SUPERVISOR.FAMILY SERVICES SPECIALIST [address] [place] [address] [facility] 08/09/24 Daja Preston, MEDICAL BILLING SUPERVISOR.FAMILY SERVICES SPECIALIST [address] [place] [address] [facility] 08/09/24 Aircraft Shipping Checker Relationship Specialty Start Date End Date Monica Gerard, MEDICAL BILLING SUPERVISOR.FAMILY SERVICES SPECIALIST [address] [place] [address] [facility] 08/09/24 Daja Preston, MEDICAL BILLING SUPERVISOR.FAMILY SERVICES SPECIALIST [address] [facility] [place] [address] [facility] 08/09/24 Aircraft Shipping Checker Relationship Specialty Start Date End Date Monica Gerard, MEDICAL BILLING SUPERVISOR.FAMILY SERVICES SPECIALIST [address] [place] [address] [facility] 08/09/24 Daja Preston MEDICAL BILLING SUPERVISOR.FAMILY SERVICES SPECIALIST [address] [place], [place] [address] [phone] [facility] 08/09/24 Team Status: Active Member Role Status Dates No Primary Care Physician Primary Care Provider Active Team Status: Inactive Member Role Status Dates Dr. Norman Kaplan , DO Emergency Provider Active Start: December 08, 2024 End: December 08, 2024 No Primary Care Physician Primary Care Provider Active Start: December 08, 2024 End: December 08, 2024 Aircraft Shipping Checker Relationship Specialty Start Date End Date Monica Gerard, MEDICAL BILLING SUPERVISOR.FAMILY SERVICES SPECIALIST [address] [place] [address] [facility] 08/09/24 Daja Preston, MEDICAL BILLING SUPERVISOR.FAMILY SERVICES SPECIALIST [address] [place] [address] [facility] 08/09/24 Aircraft Shipping Checker Relationship Specialty Start Date End Date Monica Gerard, MEDICAL BILLING SUPERVISOR.FAMILY SERVICES SPECIALIST [address] [place] [address] [facility] 08/09/24 Daja Preston, MEDICAL BILLING SUPERVISOR.FAMILY SERVICES SPECIALIST [address] [place] [address] [facility] 08/09/24 Aircraft Shipping Checker Relationship Specialty Start Date End Date Monica Gerard, MEDICAL BILLING SUPERVISOR.FAMILY SERVICES SPECIALIST [address] [place] [address] [facility] 08/09/24 Daja Preston, MEDICAL BILLING SUPERVISOR.FAMILY SERVICES SPECIALIST [address] [place] [address] [facility] 08/09/24 Team Status: Active Member Role/Relationship Status Dates Zebulun Beam VSC, FERTILIZER MIXER-C Primary Care Provider Active Team Status: Inactive Member Role/Relationship Status Dates Dr. Norman Kaplan DO Attending Provider Active Start: December 08, 2024 End: December 08, 2024 Dr. Norman Kaplan DO Emergency Provider Active Start: December 08, 2024 End: December 08, 2024 No Primary Care Physician Primary Care Provider Active Start: December 08, 2024 End: December 08, 2024 Team Status: Active Member Role/Relationship Status Dates Zebulun Beam VSC, FERTILIZER MIXER-C Primary Care Provider Active Start: February 26, 2025 Zebulun Beam VSC, FERTILIZER MIXER-C Attending Provider Active Start: February 26, 2025 Team Status: Active Member Role/Relationship Status Dates Zebulun Beam VSC, FERTILIZER MIXER-C Primary Care Provider Active Start: February 27, 2025 Zebulun Beam VSC, FERTILIZER MIXER-C Attending Provider Active Start: February 27, 2025 Team Status: Active Member Role/Relationship Status Dates Zebulun Beam VSC, FERTILIZER MIXER-C Primary Care Provider Active Start: February 28, 2025 Dr. Mary Stoll DO Emergency Provider Active S tart: February 28, 2025 Dr. Norma Byrnes MD Attending Provider Active Start: February 28, 2025 Team Status: Active Member Role/Relationship Status Dates Zebulun Beam VSC, FERTILIZER MIXER-C Primary Care Provider Active Start: February 28, 2025 Dr. Mary Stoll DO Emergency Provider Active S tart: February 28, 2025 Dr. Norma Byrnes MD Admit Provider Active St art: February 28, 2025 Dr. Norma Byrnes MD Attending Provider Active Start: February 28, 2025 Team Status: Inactive Member Role/Relationship Status Dates Zebulun Beam VSC, FERTILIZER MIXER-C Primary Care Provider Active Start: February 28, 2025 End: March 01, 2025 Dr. Mary Stoll DO Emergency Provider Active S tart: February 28, 2025 End: March 01, 2025 Dr. Norma Byrnes MD Admit Provider Active St art: February 28, 2025 End: March 01, 2025 Dr. Norma Byrnes MD Other Provider Active St art: February 28, 2025 End: March 01, 2025 Dr. Mark Stephens , Attending Provider Active Start: February 28, 2025 End: March 01, 2025 Team Status: Inactive Member Role/Relationship Status Dates Zebulun Beam VSC, FERTILIZER MIXER-C Primary Care Provider Active Start: February 26, 2025 End: February 26, 2025 Zebulun Beam VSC, FERTILIZER MIXER-C Attending Provider Active Start: February 26, 2025 End: February 26, 2025 Team Status: Inactive Member Role/Relationship Status Dates Zebulun Beam VSC, FERTILIZER MIXER-C Primary Care Provider Active Start: February 27, 2025 End: February 27, 2025 Zebulun Beam VSC, FERTILIZER MIXER-C Attending Provider Active Start: February 27, 2025 End: February 27, 2025 Team Status: Inactive Member Role/Relationship Status Dates Zebulun Beam VSC, FERTILIZER MIXER-C Primary Care Provider Active Start: February 26, 2025 End: February 26, 2025 Zebulun Beam VSC, FERTILIZER MIXER-C Attending Provider Active Start: February 26, 2025 End: February 26, 2025 Team Status: Inactive Member Role/Relationship Status Dates Zebulun Beam VSC, FERTILIZER MIXER-C Primary Care Provider Active Start: February 27, 2025 End: February 27, 2025 Zebulun Beam VSC, FERTILIZER MIXER-C Attending Provider Active Start: February 27, 2025 End: February 27, 2025 Team Status: Active Member Role/Relationship Status Dates Zebulun Beam VSC, FERTILIZER MIXER-C Primary Care Provider Active Start: February 28, 2025 Dr. Mary Stoll DO Emergency Provider Active S tart: February 28, 2025 Dr. Norma Byrnes MD Attending Provider Active Start: February 28, 2025 Team Status: Inactive Member Role/Relationship Status Dates Zebulun Beam VSC, FERTILIZER MIXER-C Primary Care Provider Active Start: February 28, 2025 End: March 01, 2025 Dr. Mary Stoll DO Emergency Provider Active S tart: February 28, 2025 End: March 01, 2025 Dr. Norma Byrnes MD Admit Provider Active St art: February 28, 2025 End: March 01, 2025 Dr. Norma Byrnes MD Other Provider Active St art: February 28, 2025 End: March 01, 2025 Dr. Mark Stephens , DO Attending Provider Active Start: February 28, 2025 End: March 01, 2025 Team Status: Active Member Role/Relationship Status Dates Zebubernardino Chavez VSC, FERTILIZER MIXER-C Primary Care Provider Active Start: March 01, 2025 Dr. Mary Stoll , Emergency Provider Active S tart: March 01, 2025 Dr. Norma Byrnes MD Admit Provider Active St art: March 01, 2025 Dr. Norma Byrnes MD Other Provider Active St art: March 01, 2025 Dr. Mark Stephens , DO Attending Provider Active Start: March 01, 2025 Dr. Mark Stephens , DO Other Provider Active S tart: March 01, 2025 Team Status: Inactive Member Role/Relationship Status Dates Zebuluaugusta Beam VSC, FERTILIZER MIXER-C Primary Care Provider Active Start: April 17, 2025 End: April 17, 2025 Zebuluaugusta Beam VSC, FERTILIZER MIXER-C Attending Provider Active Start: April 17, 2025 End: April 17, 2025 Aircraft Shipping Checker Relationship Specialty Start Date End Date Aparna Chavez FERTILIZER MIXER [address] [place] [address] PCP - General Family Medicine 05/14/25 Monica Gerard, MEDICAL BILLING SUPERVISOR.FAMILY SERVICES SPECIALIST [address] [place] [address] [facility] Medicine 08/09/24 Daja Preston, MEDICAL BILLING SUPERVISOR.FAMILY SERVICES SPECIALIST [address] [place] [address] [facility] Family Medicine 08/09/24 Reason for Visit (unrecogniz ed section [...] night (cramping feeling) Procedures EST SAME DAY Estrada Collins PA-C [address] [place] [address] Magy Stein APRN.FAMILY SERVICES SPECIALIST [address] [place] [address] Referral ID Status Reason Start Date Expiration Date Visits Re quested Visits Authorized [id number] Closed 02/28/2023 09/03/2023 1 1 Reason Comments Cough Sob, sinus drainage, wheezing x 3 days Reason Comments requesting lab order Reason Comments Patient Question Reason Comments Follow Up 6 month Specialty Diagnoses / Procedures Referred By Contac t Referred To Contact Family Medicine / FAMILY MEDICINE Diagnoses Follow-up examination 6 month f/u Procedures OFFICE/OUTPATIENT ESTABLISHED MOD MDM 30 MIN 4C EST Estrada Collins PA-C [address] [place] [address] Estrada Collins PA-C [address] [place] [address] Referral ID Status Reason Start Date Expiration Date Visits Re quested Visits Authorized [id number] Closed 12/04/2023 09/03/2024 1 1 Reason Onset Date Comments 6 Month Exam Immunizations 06/04/2024 Flu vaccination Specialty Diagnoses / Procedures Referred By Contac t Referred To Contact Family Medicine / FAMILY MEDICINE Diagnoses Female infertility associated with anovulation 6 month follow up Procedures OFFICE/OUTPATIENT ESTABLISHED MOD MDM 30 MIN 4C EST Self Estrada Collins PA-C [address] [place] [address] Referral ID Status Reason Start Date Expiration Date Visits Re quested Visits Authorized [id number] Closed 06/04/2024 09/03/2024 1 1 Reason Comments [...] EST SAME DAY Pcp, RANGEL Garsia Jonathan, APRN.FAMILY SERVICES SPECIALIST [address] [place] [address] Referral ID Status Reason Start Date Expiration Date Visits Re quested Visits Authorized [id number] Closed 10/08/2024 09/03/2025 1 1 Specialty Diagnoses / Procedures Referred By Contac t Referred To Contact Radiology / [facility] Diagnoses Cough xr chest rm 1 Procedures RADIOLOGIC EXAM CHEST 2 VIEWS XR CHEST Ana Camejo APRN.FAMILY SERVICES SPECIALIST [address] [place] [address] [facility] [address] [place] [address] Referral ID Status Reason Start Date Expiration Date Visits Re quested Visits Authorized [id number] Closed 10/08/2024 09/03/2025 1 1 Reason Comments Diarrhea Vomiting and LYON x 3 days, patient thinks she has the flu and is dehydrated Reason Onset Date Comments Refill Request 01/19/2025 Reason Comments Rash HFM x2 days Reason Comments Dizziness Vomiting, nausea, up set stomach x 1 day Goals (unrecognized section and content) Goals may [...] section and content) DATE CREATED AUTHOR 03/20/2024 [facility] DATE CREATED AUTHOR AUTHOR'S ORGANIZ ATION 02/26/2025 [facility] nt DATE CREATED AUTHOR AUTHOR'S ORGANIZ ATION 04/24/2025 [facility] DATE CREATED AUTHOR AUTHOR'S ORGANIZ ATION 05/17/2025 [facility] FOR RECORDS PERTAINING TO PATIENTS WHO ARE [...] BE BASED ON THE PRIMARY CLINICAL RECORDS. [facility]. provides no warranty or guarantee of the accuracy or completeness of information in this document.
[2025-05-17] MEDS: 0.9% Normal Saline (1000mL) 1,000 ML 999 ML IV (16:19)
[2025-05-17] MEDS: Midazolam 2 MG/2 ML Syringe 0.25 MG IV (16:20)
[2025-05-17 16:36] LABS: Mucous, Urine 0 SEEN /hpf (<or=2+)
[2025-05-17 16:38] LABS: Hematocrit 45.9 % (37-47); Hemoglobin 16.3 g/dL (12.0-15.0); Immature Granulocytes Count 0.020 X10^3/uL (0.0-0.0); Mean Corp Hgb Conc 35.5 g/dL (32-36); Mean Corpuscular Volume 85.0 fL (81-99); Mean Platelet Vol. 11.3 fl (6.2-12.0); NRBC Flagged by Analyzer 0 % (0-5); Platelet Count 249 K/mm3 (150-450); RBC Distribution Width CV 12.4 % (11.6-14.6); RBC Distribution Width SD 38.0 fl (35.1-43.9); Red Blood Count 5.40 M/mm3 (4.2-5.4); White Blood Count 7.2 K/mm3 (4.4-11.0)
[2025-05-17 16:48] LABS: Color, Urine Yellow (Yellow); Glucose, Dipstick Normal (Normal); Ketone-Dipstick Negative (Negative); Leukocyte Esterase-Dipstick 25 /ul (Negative); Nitrite-Dipstick Negative (Negative); Occult Blood-Urine Negative /ul (Negative); Protein-Dipstick 30 mg/dl (Negative); Specific Gravity, Urine 1.015 (1.002-1.030); Urine Bilirubin Dipstick Negative (Negative)
[2025-05-17 16:53] LABS: AST(SGOT) 15 U/L (<=31); Alanine Aminotransfer ALT/SGPT 22 U/L (<=34); Albumin, Serum 4.2 g/dL (3.5-5.0); Alkaline Phosphatase 64 U/L (35-104); Anion Gap 11 (5-15); BUN 16 mg/dL (4-19); BUN/Creat Ratio 20.3 RATIO (10-20); Calcium,Total 9.1 mg/dL (7.6-11.0); Carbon Dioxide 24.0 mmol/L (21.0-32.0); Chloride 105 mmol/L (98-108); Estimated Creatinine Clearance 115.78 ml/min (50-250); Globulin 2.9 g/dL (2.2-4.2); Glucose 104 mg/dL (70-99); Potassium 3.8 mmol/L (3.3-5.1)
[2025-05-17 17:18] LABS: Red Blood Cells-Urine 0-5 SEEN /hpf (0-5); Squamous Epithelial Cells - UA 5-10 SEEN /hpf (5-10)
[2025-05-17 17:27] VITALS: BP 131/87; PULSE 94; RESP 14; TEMP 36.8; O2SAT 100
== END 2025-05-17 17:35 | disposition home or self-care (01) ==
PROVIDERS: Emergency Provider Emergency Medicine; Visit Provider Emergency Medicine
DX: R42 Dizziness and giddiness (principal); F41.8 Other specified anxiety disorders; Z79.899 Other long term (current) drug therapy; H83.09 Labyrinthitis, unspecified ear
CPT/HCPCS: 70450; 80053; 81001; 85025; 93005; 96361; 96374; 96375; 99284; A4216; J2405